=== PATIENT | male | born 1955 | race Caucasian/White ===

== ENCOUNTER 2018-12-19 14:14 | Emergency (ER) | payer OTHER ==
[2018-12-19] MEDS ORDERED: warfarin PO (14:37)
[2018-12-19] MEDS ORDERED: PERCOCET PO (14:37)
[2018-12-19] MEDS ORDERED: insulin (14:39)
[2018-12-19] MEDS ORDERED: lisinopril (14:39)
[2018-12-19] MEDS ORDERED: pregabalin (14:39)
--- NOTE | 2018-12-19 15:17 | REP ---
PORTABLE CHEST X-RAY: SINGLE VIEW. HISTORY: Chest pain. FINDINGS: Monitoring electrodes are seen. The lungs are well inflated and free of focal infiltrate. There is minimal linear fibrosis in the left base. Heart is not enlarged. Pulmonary vasculature is not increased. No acute bony abnormality is appreciated. There is an old healed fracture of the left clavicle. Slight blunting of the left lateral pleural angle consistent with fibrosis. There are clips in right upper quadrant of the abdomen. IMPRESSION: Pleuroparenchymal fibrosis on the left. No acute disease. Electronically Signed by Jerry Jasmine MD 12/19/2018 06:27 P
--- NOTE | 2018-12-19 15:23 | REP ---
CT brain: 12/19/2018. Indication: Altered mental status. Stroke. Comparison: None. Technique: Unenhanced axial CT images of the brain were obtained from skull base to vertex. Findings: There is no acute intracranial hemorrhage, acute cortical infarction, mass effect or hydrocephalous. Mild diffuse volume loss is present. Fixation hardware is noted involving the lateral and superior orbital mathew. Bilateral TMJ degenerative sequelae are present. Impression: No acute intracranial process. Electronically Signed by Oseas Person DO 12/19/2018 03:14 P
[2018-12-19 15:50] LABS: BASO # 0.1 10^3/uL (0.0-0.2); BASO % 1.6 % (0.0-1.0); EOS # 0.3 10^3/uL (0.0-0.5); EOS % 5.4 % (0.0-3.0); HEMATOCRIT 35.1 % (42.0-52.0); LYMPH # 1.6 10^3/uL (1.5-5.0); LYMPH % 30.5 % (24.0-44.0); MEAN CORPUSCULAR HEMOGLOBIN 33.6 pg (27.0-33.0); MEAN CORPUSCULAR HGB CONC 34.2 g/dl (32.0-36.5); MEAN CORPUSCULAR VOLUME 98.3 fl (80.0-96.0); MONO # 0.7 10^3/uL (0.0-0.8); MONO % 12.6 % (0.0-5.0); NEUTROPHILS # 2.6 10^3/uL (1.5-8.5); NEUTROPHILS % 49.7 % (36.0-66.0); PLATELET COUNT, AUTOMATED 132 10^3/uL (150-450); RED BLOOD COUNT 3.57 10^6/uL (4.30-6.10); WHITE BLOOD COUNT 5.1 10^3/uL (4.0-10.0)
[2018-12-19] MEDS ORDERED: LYRI150C PO (15:55)
[2018-12-19] MEDS ORDERED: INSULADS INJ (15:55)
[2018-12-19] MEDS ORDERED: lactulose PO (15:55)
[2018-12-19] MEDS ORDERED: WARF05TA PO (15:55)
[2018-12-19] MEDS ORDERED: METF10004 PO (15:55)
[2018-12-19] MEDS ORDERED: REFR0.5D8 OP (15:55)
[2018-12-19] MEDS ORDERED: CAPS0.022 TOP (15:55)
[2018-12-19] MEDS ORDERED: ROXI1TAB2 PO (15:55)
[2018-12-19] MEDS ORDERED: LISI-542 PO (15:55)
[2018-12-19 15:59] LABS: INR 1.94; PROTHROMBIN TIME 21.9 SECONDS (11.8-14.0)
[2018-12-19 16:00] LABS: PARTIAL THROMBOPLASTIN TIME 40.2 SECONDS (25.0-38.4)
[2018-12-19 16:14] LABS: OSMOLALITY SERUM 302 MOSM/KG (280-301)
[2018-12-19 16:15] LABS: BLOOD UREA NITROGEN 11 MG/DL (7-18); CALCIUM LEVEL 8.3 MG/DL (8.8-10.2); CARBON DIOXIDE LEVEL 25 MEQ/L (21-32); CHLORIDE LEVEL 112 MEQ/L (98-107); CK-MB VALUE MASS 1.3 NG/ML (<3.6); CPK CREATINE PHOSPHOKINASE 92 U/L (39-308); CREATININE FOR GFR 0.78 MG/DL (0.70-1.30); GLOMERULAR FILTRATION RATE > 60.0 (>49); GLUCOSE, FASTING 214 MG/DL (70-100); MB/CK RELATIVE INDEX 1.41 (< OR =4); POTASSIUM SERUM 3.9 MEQ/L (3.5-5.1); SODIUM LEVEL 142 MEQ/L (136-145); TROPONIN I 0.17 NG/ML (< 0.10)
[2018-12-19 16:20] LABS: ACETAMINOPHEN LEVEL < 2.0 UG/ML (10.0-30.0); ALBUMIN 2.9 GM/DL (3.2-5.2); BILIRUBIN,DIRECT 0.8 MG/DL (0.0-0.2); BILIRUBIN,TOTAL 2.3 MG/DL (0.2-1.0); ETHYL ALCOHOL (ETHANOL) 0.003 % (0.000-0.010); FREE T4 0.92 NG/DL (0.76-1.46); SALICYLATE LEVEL < 1.7 MG/DL (5.0-30.0); THYROID STIMULATING HORMONE 1.32 uIU/ML (0.358-3.740); TOTAL PROTEIN 6.7 GM/DL (6.4-8.2)
[2018-12-19] MEDS ORDERED: NS 1,000 ML IV ONE ×2 (16:45→18:30)
[2018-12-19] MEDS ORDERED: ISOVUE-370 76% 100ML VIAL (Q9967) As Ordered ONE (16:52)
[2018-12-19] MEDS ORDERED: PERCOCET 5MG/325MG TAB PO ONE (17:45)
--- NOTE | 2018-12-19 18:01 | REPVR ---
PROCEDURE INFORMATION: Exam: CT Angiography Chest With Contrast Exam date and time: 12/19/2018 4:33 PM Clinical history: 63 years old, male; Chest pain; Type not specified; Additional info: Cp TECHNIQUE: Imaging protocol: Computed tomographic angiography of the chest with intravenous contrast. 3D rendering: MIP reconstructed images were created and reviewed. Radiation optimization: All CT scans at this facility use at least one of these dose optimization techniques: automated exposure control; mA and/or kV adjustment per patient size (includes targeted exams where dose is matched to clinical indication); or iterative reconstruction. Contrast material: ISOVUE 370; Contrast volume: 75 ml; Contrast route: IV; COMPARISON: CR PORTABLE CHEST X-RAY 12/19/2018 2:51 PM FINDINGS: Pulmonary arteries: Normal. No pulmonary emboli. Aorta: Unremarkable. No aortic aneurysm. No aortic dissection. Lungs: Minimal linear atelectasis and/or scar in the lingula and left lung base. No pulmonary consolidation. Pleural space: Unremarkable. No pneumothorax. No pleural effusion. Heart: Unremarkable. No cardiomegaly. No pericardial effusion. Gallbladder and bile ducts: Status post cholecystectomy. Lymph nodes: Mildly prominent calcified and noncalcified lymph nodes within the mediastinum and both pulmonary francisca. Bones/joints: Unremarkable. No acute fracture. Soft tissues: Unremarkable. IMPRESSION: 1. No pulmonary arterial embolism. 2. Calcified and noncalcified mediastinal and hilar lymphadenopathy. Differential diagnosis includes infectious granulomatous diseases, sarcoidosis, pneumoconioses and treated lymphoma. Further clinical workup is recommended. Electronically signed by: Ari Spencer On 12/19/2018 18:00:39 PM
[2018-12-19 20:00] VITALS: BP 176/84
--- NOTE | 2018-12-20 19:33 | ECGEPIP ---
[facility] - ED Test Date: 2018-12-19 Pat Name: JAXON KANG Department: Room: - Gender: Male Cook Fry: : 1955 Requested By: Trae Fonseca Order Number: [id number] Reading MD: Trae Fonseca Measurements Intervals [place] Rate: 68 P: -4 [place]: 159 QRS: -45 QRSD: 88 T: 20 QT: 476 QTc: 510 Interpretive Statements SINUS RHYTHM LAD LEFT ANTERIOR FASCICULAR BLOCK MODERATE VOLTAGE CRITERIA FOR LVH, CONSIDER NORMAL VARIANT PROLONGED QT INTERVAL NONSPECIFIC ST T WAVE CHANGES NO PRIOR ECG FOR COMPARISON Electronically Signed on 12-20-2018 19:32:52 EDT by Trae Fonseca
== END 2018-12-19 20:07 | disposition short-term general hospital (02) ==
LOC: M ED 14:14
DX: I21.4 Non-ST elevation (NSTEMI) myocardial infarction (principal); E11.9 Type 2 diabetes mellitus without complications; I10 Essential (primary) hypertension; B19.20 Unspecified viral hepatitis C without hepatic coma; K74.60 Unspecified cirrhosis of liver; Z79.899 Other long term (current) drug therapy; Z79.4 Long term (current) use of insulin; Z79.01 Long term (current) use of anticoagulants; Z88.8 Allergy status to other drugs, medicaments and biological substances; Z87.891 Personal history of nicotine dependence
CPT/HCPCS: 70450; 71045; 71275; 80048; 80076; 82140; 82550; 82553; 83605; 83690; 83880; 83930; 84439; 84443; 84484; 85025; 85610; 85730; 87040; 93005; 93041; 94760; 96360; 96361; 99291; G0480; Q9967

== ENCOUNTER 2019-03-11 10:04 | Inpatient (IN) | payer OTHER ==
[~2019-03-11] VITALS: Ht 175.3 cm; Wt 67.5 kg
[~2019-03-11 10:04] MED LIST: CAPS0.022 TOP; INSULADS SC; LISI-542 PO; LYRI150C PO; METF10004 PO; PERCOCET PO; REFR0.5D8 OU; ROXI1TAB2 PO; WARF05TA PO; insulin; lactulose PO; lisinopril; pregabalin; warfarin PO
[2019-03-11 10:39] LABS: BASO # 0.1 10^3/uL (0.0-0.2); BASO % 0.4 % (0.0-1.0); EOS % 0.1 % (0.0-3.0); HEMATOCRIT 32.1 % (42.0-52.0); HEMOGLOBIN 10.8 g/dl (13.5-17.5); LYMPH # 0.4 10^3/uL (1.5-5.0); LYMPH % 3.7 % (24.0-44.0); MEAN CORPUSCULAR HEMOGLOBIN 32.9 pg (27.0-33.0); MEAN CORPUSCULAR HGB CONC 33.6 g/dl (32.0-36.5); MEAN CORPUSCULAR VOLUME 97.9 fl (80.0-96.0); MONO # 0.8 10^3/uL (0.0-0.8); MONO % 7.4 % (0.0-5.0); NEUTROPHILS # 9.8 10^3/uL (1.5-8.5); NEUTROPHILS % 87.6 % (36.0-66.0); PLATELET COUNT, AUTOMATED 137 10^3/uL (150-450); RED BLOOD COUNT 3.28 10^6/uL (4.30-6.10); WHITE BLOOD COUNT 11.2 10^3/uL (4.0-10.0)
[2019-03-11 11:14] LABS: ALBUMIN 2.4 GM/DL (3.2-5.2); ALT/SGPT 12 U/L (12-78); BILIRUBIN,DIRECT 0.9 MG/DL (0.0-0.2); BILIRUBIN,TOTAL 1.7 MG/DL (0.2-1.0); BLOOD UREA NITROGEN 17 MG/DL (7-18); CALCIUM LEVEL 8.1 MG/DL (8.8-10.2); CARBON DIOXIDE LEVEL 19 MEQ/L (21-32); CHLORIDE LEVEL 98 MEQ/L (98-107); CK-MB VALUE MASS < 1.0 NG/ML (<3.6); CPK CREATINE PHOSPHOKINASE 42 U/L (39-308); CREATININE FOR GFR 1.18 MG/DL (0.70-1.30); GLOMERULAR FILTRATION RATE > 60.0 (>49); GLUCOSE, FASTING 448 MG/DL (70-100); MB/CK RELATIVE INDEX 2.38 (< OR =4); POTASSIUM SERUM 4.8 MEQ/L (3.5-5.1); SODIUM LEVEL 130 MEQ/L (136-145); THYROID STIMULATING HORMONE 0.623 uIU/ML (0.358-3.740); TOTAL PROTEIN 6.2 GM/DL (6.4-8.2); TROPONIN I 0.06 NG/ML (< 0.10)
[2019-03-11] MEDS ORDERED: ISOVUE-370 76% 100ML VIAL (Q9967) As Ordered ONE (11:42)
[2019-03-11] MEDS ORDERED: NS 2,250 ML in IV 1 EA IV ONE (11:45)
[2019-03-11] MEDS ORDERED: cefTRIAXone SOD 2 GM in D5W MINI-BAG PLUS 50 ML IV ONE (11:45)
[2019-03-11 12:08] LABS: INFLUENZA A AMPLIFICATION NEGATIVE (NEGATIVE); INFLUENZA B AMPLIFICATION NEGATIVE (NEGATIVE)
--- NOTE | 2019-03-11 12:27 | REP ---
CT chest with IV contrast: History: Trauma. Comparison chest CT December 19, 2018. CT contrast dose: 100 mL of intravenous Isovue 370. CT findings: Preliminary digital elementary special education teacher radiograph is unremarkable. There is no evidence of mediastinal hematoma. The thoracic aorta is normal in coarse, caliber and homogeneous in contrast enhancement. No filling defect is seen in the pulmonary arterial tree. There are multiple calcified lymph node residuals in the hilar and mediastinal lymph nodes. There are stable calcified and noncalcified mediastinal lymph nodes unchanged from December 19, 2018. There is linear pleuroparenchymal fibrosis in the left lower lobe unchanged from December 19, 2018. There is fissural thickening along the major fissure on the left and to a lesser extent in the right chest. This combined with prominent interstitial markings and interlobular septal thickening in the lower lobes bilaterally and posteriorly is suggestive of CHF. Mild pulmonary edema pattern. No focal infiltrate is seen. There is no evidence of pneumothorax or focal contusion. Bone window settings show no bony destructive lesion. No acute fracture is seen. There is evidence of an old healed fracture of the left distal clavicle. Impression: Fissural thickening and mild diffuse interstitial edema pattern, question CHF. Old granulomatous lymph node residuals unchanged. Pleuroparenchymal scarring left base. Old healed fracture left distal clavicle. Electronically Signed by Jerry Jasmine MD 03/11/2019 01:10 P
--- NOTE | 2019-03-11 12:34 | REP ---
CT ABDOMEN AND PELVIS WITH IV BUT WITHOUT ORAL CONTRAST: HISTORY: Trauma. FINDINGS: Preliminary etcher enameling view is unremarkable. The liver and spleen are normal in size homogeneous in texture. No hematoma is seen in either organ. Clips in the gallbladder fossa post cholecystectomy. Normal adrenals. No pancreatic mass or abnormal fluid collection is seen. Kidneys enhance symmetrically and appear morphologically intact. No perirenal hematoma is seen. The patient's hands apparently could not be removed from the field of view. Prostate seminal vesicles and urinary bladder appear intact. The bladder is largely empty. Small and large bowel loops are unremarkable. No intra-abdominal hematoma is seen. Bone window settings show no fracture or bony destructive lesion. There are two or three normal-sized periaortic lymph nodes. No definite adenopathy. There are large venous collaterals in the left mid abdomen consistent with portal hypertension. There is a tiny sliver of ascitic fluid just anterior to the left lobe of the liver. There is no evidence of significant ascites. IMPRESSION: There are large mesenteric and retroperitoneal portal venous collateral channels in the left abdomen consistent with portal hypertension/cirrhosis. No traumatic abnormality is seen. Post cholecystectomy clips. Electronically Signed by Jerry Jasmine MD 03/11/2019 01:10 P
--- NOTE | 2019-03-11 13:02 | REP ---
CT brain without contrast: History: Trauma. Comparison study: December 19, 2018. Findings: Digital preliminary retail pricing coordinator radiographs are unremarkable. The bony calvarium is intact. There are post surgical metallic screws along the lateral orbital margin on the left unchanged. Visualized paranasal sinuses are clear. No intraorbital abnormality is seen. There is mild generalized volume loss intracranially. There is no evidence of intracranial hemorrhage. No extra-axial fluid collection is seen. No mass or flow midline shift is seen. No evidence of infarct. Impression: No skull fracture or intracranial injury. Mild generalized volume loss. Postsurgical changes left lateral orbit wall unchanged. Electronically Signed by Jerry Jasmine MD 03/11/2019 01:11 P
--- NOTE | 2019-03-11 13:03 | REP ---
CT study of the cervical spine without contrast: History: Trauma. No comparison study. Technique: Helical scanning is acquired and overlapping 2 mm high resolution axial images were generated and reviewed at bone and soft tissue window settings. Coronal and sagittal multiplanar re-formations images are generated. CT findings: There is no evidence of cervical spine element fracture. No skull base fracture is seen. Cervical vertebral body heights are preserved. Alignment is normal. Facet joints are normally aligned bilaterally at each cervical level on multiplanar re-formations images. There is no evidence of intraspinal or paraspinal hematoma. No extra vertebral abnormality is seen. There are mild degenerative spondylosis changes. Degenerative disc changes are most pronounced at C5-6 but also present at C6-7 and C3-4 and C4-5. There is osteoarthritis at the articulation between the dens and the anterior arch of C1. Minimal facet changes are noted. Impression: Degenerative spondylosis changes. Otherwise negative CT study of the cervical spine without contrast. No fracture seen. Electronically Signed by Jerry Jasmine MD 03/11/2019 01:11 P
--- NOTE | 2019-03-11 13:11 | REP ---
Left knee series: Four views. History: Trauma. Findings: Four views of the left knee are presented. No sunrise view. There is minimal patellar spurring on the lateral film at the superior pole of the patella. A fabella is noted. No fracture or subluxation or joint effusion is seen. Impression: No fracture noted. Four view left knee series. Electronically Signed by Jerry Jasmine MD 03/11/2019 06:19 P
[2019-03-11] MEDS: ACETAMINOPHEN TAB 650MG DOSE (2X325MG) PO ONE ×3 (13:42→14:24)
[2019-03-11] MEDS ORDERED: WARF4TAB51 PO ×2 (15:11)
[2019-03-11] MEDS ORDERED: LISI-538 PO (15:11)
--- NOTE | 2019-03-11 15:45 | HPEPDOC ---
General Date of Admission Mar 11, 2019 at 14:49 Date of Service: Mar 11, 2019 Attending Physician: MCKENNA SIMMS MD Chief Complaint 63 year old male PMHx chronic lower back pain/sciatica, HTN, neuropathy, DM2 presents with altered mental status, frequent falls and urinary incontinence/dysuria. at bedside assisting with the history. States patient woke up yesterday feeling weak and fatigued, appeared confused, not able to get out of bed or ambulate. Noted to have episodes of urinary incontinence with dysuria, associated with chills and subjective fever. Also with c/o frequent falls with a fall yesterday, hit his forehead. Patient stating he loses his balance and falls, denies lightheadedness/dizziness, chest pain/pressure. Presents to the ED due to continuation of symptoms. VSS, T 102. Labs ith WBC 11.2, BG 448 (AG 13), LA 4, UA trace LE, negative nitrite, negative bacteria. CT chest with question of mild pulmonary edema. Started on IV rocephin in ED, admission for further management. Source: Patient, Family Exam Limitations: No limitations Home Medications Scheduled Insulin Glargine (Lantus) 100 Unit/1 Ml Vial, 12 UNIT SC QHS, (Reported) Lisinopril (Lisinopril) 20 Mg Tablet, 10 MG PO DAILY, (Reported) Metformin HCl (Metformin HCl) 1,000 Mg Tablet, 1,000 MG PO BID, (Reported) Pregabalin (Lyrica) 150 Mg Capsule, 150 MG PO BID, (Reported) Warfarin Sodium (Warfarin Sodium) 2 Mg Tablet, 4 MG PO 6XWK, (Reported) TAKEN SUN Sun Warfarin Sodium (Warfarin Sodium) 2 Mg Tablet, 3 MG PO 1XWK, (Reported) TAKEN SUNDAY Scheduled PRN Capsaicin (Capsaicin) 0.025% Cream..g., 1 DOSE TOP BID PRN for PAIN, (Reported) APPLY TO AREAS OF PAIN Carboxymethylcellulose Sodium (Refresh Tears) 15 Ml Drops, 1 DROP OU TID PRN for DRY EYES, (Reported) Oxycodone HCl (Roxicodone) 5 Mg Tablet, 1 TAB PO Q4H PRN for PAIN, (Reported) Allergies Coded Allergies: gabapentin (Verified Adverse Reaction, Unknown, nausea vomiting, 12/19/18) spironolactone (Verified Adverse Reaction, Unknown, gynecomastia, 12/19/18) Past Medical History Medical History DM2, HTN, neuropathy, CAD s/p CO, chronic lower back pain Surgical History none Family History Significant Family History: Noncontributory Social History * Smoker: former Smoker, less than 1 pack/day Alcohol: Denies Drugs: denies A-FIB/CHADSVASC A-FIB History Current/History of A-Fib/PAF?: No Current PO Anticoag Therapy: Yes Review of Systems Constitutional: Reports: Weakness, Fatigue Genitourinary: Reports: Dysuria, Frequency, Incontinence Vital Signs Vital Signs Date Time Temp Pulse Resp B/P (MAP) Pulse Ox O2 Delivery O2 Flow Rate FiO2 03/11/19 13:15 78 18 120/62 (81) 91 03/11/19 10:19 102.0 03/11/19 10:19 Room Air Laboratory Data Labs 24H Laboratory Tests 2 03/11/19 10:25: Immature Granulocyte % (Auto) 0.8, Neutrophils (%) (Auto) 87.6H, Lymphocytes (%) (Auto) 3.7L, Monocytes (%) (Auto) 7.4H, Eosinophils (%) (Auto) 0.1, Basophils (%) (Auto) 0.4, Neutrophils # (Auto) 9.8H, Lymphocytes # (Auto) 0.4L, Monocytes # (Auto) 0.8, Eosinophils # (Auto) 0.0, Basophils # (Auto) 0.1, Nucleated Red Blood Cells % (auto) 0.0, Urine Color YELLOW, Urine Appearance CLEAR, Urine pH 5.0, Urine Specific [place] 1.029, Urine Protein NEGATIVE, Urine Glucose (UA) 3+H, Urine Ketones 1+H, Urine Blood 2+H, Urine Nitrite NEGATIVE, Urine Bilirubin NEGATIVE, Urine Urobilinogen 0.2, Urine Leukocyte Esterase TRACEH, Urine WBC (Auto) 31H, Urine RBC (Auto) 4H, Urine Hyaline Casts (Auto) 0, Urine Bacteria (Auto) NEGATIVE, Urine Squamous Epithelial Cells 0, Urine Sperm (Auto) , Anion Gap 13, Glomerular Filtration Rate > 60.0, Calcium Level 8.1L, Total Bilirubin 1.7H, Direct Bilirubin 0.9H, Aspartate Amino Transf (AST/SGOT) 22, Alanine Aminotransferase (ALT/SGPT) 12, Alkaline Phosphatase 78, Total Creatine Kinase 42, Creatine Kinase MB < 1.0, Creatine Kinase MB Relative Index 2.38, Troponin I 0.06, Total Protein 6.2L, Albumin 2.4L, Albumin/Globulin Ratio 0.63L, Thyroid Stimulating Hormone (TSH) 0.623 03/11/19 10:27: Bedside Glucose (Misc Panel) 445H 03/11/19 10:50: Lactic Acid Level 4.0*H, Influenza Type A (RT-PCR) NEGATIVE, Influenza Type B (RT-PCR) NEGATIVE, Respiratory Syncytial Virus (RT-PCR NEGATIVE 03/11/19 12:50: Ammonia 32 03/11/19 15:19: CBC/BMP Laboratory Tests 03/11/19 10:25 Microbiology Microbiology 03/11/19 Blood Culture, Received Pending 03/11/19 Urine Culture, Received Pending 03/11/19 Blood Culture, Received Pending Assessment/Plan 1. altered mental status - presents with c/o dysuria and increased urinary frequency/incontinence. - CT chest question of mild pulmonary edema, no clear infiltrates, will check ECHO. - T 102 in ED. - started on IV rocephin in ED, continue same pending cultures. - check blood/urine cultures. 2. uncontrolled hyperglycemia - FSBS, SSI coverage. 3. leukocytosis with left shift - tx as per #1. 4. HTN - continue lisinopril. 5. peripheral neuropathy - continue lyrica. 6. hx TIA - on coumadin for stroke prophylaxis. - INR 2.8, continue same, INR check daily. 7. liver cirrhosis/portal hypertension - on lactulose for HE prophylaxis. 8. DVT ppx - continue coumadin. Plan / VTE VTE Prophylaxis Ordered?: Yes MCKENNA SIMMS MD Mar 11, 2019 15:45
[2019-03-11] MEDS ORDERED: DEXTROSE 50% 50 ML SYRINGE IV PRN (16:00)
[2019-03-11] MEDS ORDERED: GLUCAGON FOR INJ 1 MG VIAL (J1610) SC PRN (16:00)
[2019-03-11] MEDS ORDERED: GLUCOSE 4 GM CHEW TABLET PO PRN (16:00)
[2019-03-11 16:20] VITALS: BP 131/59
[2019-03-11 16:30] LABS: INR 2.68; PROTHROMBIN TIME 28.4 SECONDS (11.8-14.0)
[2019-03-11] MEDS ORDERED: WARFARIN SOD 4 MG TAB PO ONE (17:00)
[2019-03-11] MEDS: HumaLOG INSULIN (NovoLOG) PER UNIT SC SCH (18:02)
[2019-03-11] MEDS: PREGABALIN 75 MG CAP(LYRICA) PO SCH (20:09)
[2019-03-11 22:00] VITALS: BP 131/64
[2019-03-11] MEDS: ACETAMINOPHEN TAB 650MG DOSE (2X325MG) PO PRN (23:39)
[2019-03-11 23:40] VITALS: BP 188/78
[2019-03-11] MEDS ORDERED: HumaLOG INSULIN (NovoLOG) PER UNIT SC STA (23:45)
[2019-03-11] MEDS ORDERED: amLODIPine 5 MG TAB PO ONE (23:45)
[2019-03-11 23:51] VITALS: BP 180/54
[2019-03-12] VITALS (7 sets, daily range): BP systolic 116–170; BP diastolic 57–90
[2019-03-12] MEDS ORDERED: NS 1,000 ML IV SCH
[2019-03-12 00:13] LABS: ABG BASE EXCESS -7.8 (-2.0-2.0); ABG HCO3 14.2 MEQ/L (22.0-26.0); ABG O2 SATURATION 99.3 % (95.0-99.0); ABG PARTIAL PRESSURE CO2 20.8 mmHg (35.0-45.0); ABG PARTIAL PRESSURE O2 171.4 mmHg (75.0-100.0); ABG STANDARD HCO3 18.2 MEQ/L (22.0-26.0); ABG TOTAL CO2 14.9 MEQ/L (23.0-31.0); ABG pH (ARTERIAL) 7.453 UNITS (7.350-7.450)
[2019-03-12] MEDS: HumaLOG INSULIN (NovoLOG) PER UNIT SC SCH ×5 (00:23→21:00)
[2019-03-12 00:30] LABS: HEMATOCRIT 33.1 % (42.0-52.0); MEAN CORPUSCULAR HEMOGLOBIN 32.7 pg (27.0-33.0); MEAN CORPUSCULAR HGB CONC 33.2 g/dl (32.0-36.5); MEAN CORPUSCULAR VOLUME 98.5 fl (80.0-96.0); PLATELET COUNT, AUTOMATED 140 10^3/uL (150-450); RED BLOOD COUNT 3.36 10^6/uL (4.30-6.10); WHITE BLOOD COUNT 9.2 10^3/uL (4.0-10.0)
[2019-03-12] MEDS: PIPERACILLIN/TAZOBACTAM SOD 4.5 GM in D5W MINI-BAG PLUS 50 ML IV SCH ×3 (00:38→16:37)
--- NOTE | 2019-03-12 00:38 | REPVR ---
PROCEDURE INFORMATION: Exam: XR Chest, 1 View Exam date and time: 03/11/2019 11:59 PM Age: 63 years old Clinical indication: Other: Decreased sat TECHNIQUE: Imaging protocol: XR of the chest Views: 1 view. COMPARISON: CR PORTABLE CHEST X-RAY 12/19/2018 2:51 PM FINDINGS: Lungs: Bilateral perihilar and infrahilar infiltrates with increased interstitial coarsening. There are Angie B lines in the right base which are new. Mild pulmonary hyperinflation. Pleural space: Question of minimal left pleural effusion. Heart/Mediastinum: Borderline cardiomegaly which may be slightly increased. Bones/joints: Left clavicular fracture. IMPRESSION: Interval mild congestive failure overlying COPD since 12/19/2018. Electronically signed by: Randy Mina On 03/12/2019 00:38:06 AM
[2019-03-12] MEDS ORDERED: NS 1,000 ML IV ONE ×2 (00:45)
--- NOTE | 2019-03-12 00:47 | IPNPDOC ---
Text Note Date of Service The patient was seen on 03/12/19. NOTE Overnight Progress Note Rapid Response team was called to pt's bedside due to change in mental status. Pt was found to be confused compared to prior evaluation by nursing staff. Pt was alert but was not responding to questions appropriately. Pt did respond "yes" when asked if he was currently having any chest pain. VS: Temp 104.3, HR 67, RR 32, BP 188/78, O2 sat 89% on room air Pt did not follow directions and would not cooperate with neurologic exam Pt is alert and oriented x1 to self, not to place or time. Of note, patient was admitted for treatment of UTI, on IV ceftriaxone. Labs ordered including ABG, lactic acid, CBC, BMP, repeat blood culture x2, troponin, and etoh level. FSBS noted to be 456. CXR ordered. EKG ordered. Pt will be started on Zosyn to broaden antibiotic coverage for concern of worsening sepsis. Pt started on 1 L fluid bolus and will continue with maintenance fluids at 100ml/hr. Pt was treated with Tylenol and cooling blanket for fever, amlodipine 5mg for hypertension, 12 units humalog for elevated blood glucose. If fever continues, may add ibuprofen for further management. Monitor on telemetry and with q4h VS and neuro checks. Pt was transferred to PCU for closer monitoring. VS,Fishbone, I+O VS, Fishbone, I+O Laboratory Tests 03/11/19 10:25 03/12/19 00:20 Vital Signs Date Time Temp Pulse Resp B/P (MAP) Pulse Ox O2 Delivery O2 Flow Rate FiO2 03/12/19 00:24 96 178/84 03/11/19 23:40 104.3 32 89 03/11/19 22:00 Room Air I&O- Last 24 Hours up to 6 AM 03/12/19 06:00 Intake Total 3090 ml Output Total 175 ml Balance 2915 ml PRATEEK ARELLANO D.O. Mar 12, 2019 00:47
[2019-03-12 00:53] LABS: ETHYL ALCOHOL (ETHANOL) < 0.003 % (0.000-0.010)
[2019-03-12 01:03] LABS: CALCIUM LEVEL 7.8 MG/DL (8.8-10.2); CREATININE FOR GFR 1.36 MG/DL (0.70-1.30); GLOMERULAR FILTRATION RATE 56.7 (>49); POTASSIUM SERUM 4.5 MEQ/L (3.5-5.1); TROPONIN I 0.06 NG/ML (< 0.10)
[2019-03-12] MEDS ORDERED: ALBUTEROL SULFATE 2.5 MG/0.5 ML INH NEB SOLN NEB ONE (02:45)
[2019-03-12] MEDS ORDERED: FUROSEMIDE 20 MG/2 ML VIAL (J1940) IV ONE (02:45)
[2019-03-12 02:56] LABS: NT-PRO BNP 1861 PG/ML (<125)
[2019-03-12] MEDS ORDERED: IBUPROFEN 400 MG TAB PO ONE (04:00)
[2019-03-12 05:28] LABS: HEMATOCRIT 30.2 % (42.0-52.0); HEMOGLOBIN 10.1 g/dl (13.5-17.5); MEAN CORPUSCULAR HEMOGLOBIN 32.4 pg (27.0-33.0); MEAN CORPUSCULAR HGB CONC 33.4 g/dl (32.0-36.5); MEAN CORPUSCULAR VOLUME 96.8 fl (80.0-96.0); PLATELET COUNT, AUTOMATED 122 10^3/uL (150-450); RED BLOOD COUNT 3.12 10^6/uL (4.30-6.10); WHITE BLOOD COUNT 12.5 10^3/uL (4.0-10.0)
[2019-03-12 05:39] LABS: INR 3.74
[2019-03-12 05:55] LABS: BLOOD UREA NITROGEN 16 MG/DL (7-18); CALCIUM LEVEL 7.6 MG/DL (8.8-10.2); CARBON DIOXIDE LEVEL 15 MEQ/L (21-32); CHLORIDE LEVEL 107 MEQ/L (98-107); CREATININE FOR GFR 1.06 MG/DL (0.70-1.30); GLOMERULAR FILTRATION RATE > 60.0 (>49); GLUCOSE, FASTING 234 MG/DL (70-100); SODIUM LEVEL 136 MEQ/L (136-145)
--- NOTE | 2019-03-12 07:57 | ECGEPIP ---
[facility] - ED Test Date: 2019-03-11 Pat Name: JAXON KANG Department: Room: - Gender: Male Social Service Technician: ehsan : 1955 Requested By: JOSETTE Tinajero Order Number: [id number] Reading MD: Sveta Ramos Measurements Intervals [place] Rate: 92 P: 50 MS: 171 QRS: -51 QRSD: 77 T: 48 QT: 378 QTc: 468 Interpretive Statements SINUS RHYTHM LEFT ANTERIOR FASCICULAR BLOCK LAD PROLONGED QTC NSTTW abnormalities INCREASED RATE 12/19/18 Electronically Signed on 03-12-2019 7:56:56 EST by Sveta Ramos
[2019-03-12] MEDS: lisinopriL 10 MG TAB PO SCH (08:43)
[2019-03-12] MEDS: PREGABALIN 75 MG CAP(LYRICA) PO SCH ×2 (08:44→21:58)
[2019-03-12] MEDS ORDERED: oxyCODONE 5MG TAB PO ONE (08:45)
[2019-03-12] MEDS ORDERED: VANCOMYCIN HCL IV SCH (10:15)
[2019-03-12] MEDS ORDERED: FLUID PLACE HOLDER IV SCH (10:15)
[2019-03-12] MEDS ORDERED: cefTRIAXone SOD 1 GM in D5W MINI-BAG PLUS 50 ML IV SCH (12:00)
[2019-03-12] MEDS ORDERED: VANCOMYCIN HCL 1,000 MG, VIAL MATE ADAPTER 1 EACH in D5W 250 ML IV ONE (12:00)
--- NOTE | 2019-03-12 12:31 | IPNPDOC ---
Subjective Date Seen The patient was seen on 03/12/19. Subjective Chief Complaint/HPI seen and examined at bedside, awake and alert but slow to answer. No specific complaints. General: Reports: Fatigue Constitutional: Reports: Weakness Objective Physical Examination General Exam: Positive: Alert, Other (slow to answer but appropriate) Chest Exam: Positive: Diminished Assessment /Plan Assessment 1. gram positive bacteremia - overnight events noted. - positive blood cultures from 03/11 2/2 bottles positive for staph. - started on vancomycin q12. - consult placed to ID Dr. Faust. - f/u ECHO. 2. hypoxia (resolved) - continue supplemental oxygen - tx with IV lasix 20mg IV x 1 overnight. - f/u ECHO report. - daily weights, ins/outs, continue 20mg IV lasix daily. - consider consult to cardiology. 3. uncontrolled hyperglycemia - improving. - FSBS, SSI coverage. 4. HTN - continue lisinopril. 5. peripheral neuropathy - continue lyrica. 6. hx TIA - on coumadin for stroke prophylaxis. - INR 3.74 today, hold coumadin, INR check daily. 7. liver cirrhosis/portal hypertension - ammonia level normal, monitor. 8. DVT ppx - continue coumadin. Plan/VTE VTE Prophylaxis Ordered?: Yes VS, I&O, 24H, [facility] Vital Signs/I&O Vital Signs Date Time Temp Pulse Resp B/P (MAP) Pulse Ox O2 Delivery O2 Flow Rate FiO2 03/12/19 11:44 98.0 77 18 141/60 (87) 90 Room Air 03/12/19 08:00 3.0 l I&O- Last 24 Hours up to 6 AM 03/12/19 06:00 Intake Total 3090 ml Output Total 475 ml Balance 2615 ml Laboratory Data 24H LABS Laboratory Tests 2 03/11/19 12:50: Ammonia 32 03/11/19 15:19: Lactic Acid Followup at 4 Hours 3.1*H 03/11/19 17:47: Bedside Glucose (Misc Panel) 453H 03/11/19 23:46: Bedside Glucose (Misc Panel) 456H 03/12/19 00:04: Blood Gas Bicarbonate Standard 18.2L, Arterial Blood pH 7.453H, Arterial Blood Partial Pressure CO2 20.8L, Arterial Blood Partial Pressure O2 171.4H, Arterial Blood Total CO2 14.9L, Arterial Blood HCO3 14.2L, Arterial Blood Base Excess - 7.8L, Arterial Blood Oxygen Saturation 99.3H 03/12/19 00:20: Nucleated Red Blood Cells % (auto) 0.0, Anion Gap 14, Glomerular Filtration Rate 56.7, Calcium Level 7.8L, Troponin I 0.06, NI-Syc-P-Type Natriuretic Peptide 1861H, Ethyl Alcohol Level < 0.003 03/12/19 00:21: Lactic Acid Level 7.2*H 03/12/19 02:22: Bedside Glucose (Misc Panel) 249H 03/12/19 05:04: Nucleated Red Blood Cells % (auto) 0.0, Prothrombin Time 37.0H, Prothromb Time International Ratio 3.74, Anion Gap 14, Glomerular Filtration Rate > 60.0, Lactic Acid Level 6.2*H, Calcium Level 7.6L 03/12/19 06:07: Bedside Glucose (Misc Panel) 238H 03/12/19 08:21: Lactic Acid Level 3.5*H, Ammonia 29 03/12/19 12:16: Bedside Glucose (Misc Panel) 440H CBC/BMP Laboratory Tests 03/12/19 00:20 03/12/19 05:04 Microbiology Microbiology 03/12/19 Blood Culture, Received Pending 03/11/19 Blood Culture - Preliminary, Resulted 03/11/19 Urine Culture - Final, Complete 03/11/19 Blood Culture - Preliminary, Resulted MCKENNA SIMMS MD Mar 12, 2019 12:31
[2019-03-12] MEDS ORDERED: VANCOMYCIN HCL 750 MG, VIAL MATE ADAPTER 1 EACH in D5W 250 ML IV ONE (13:00)
[2019-03-12] MEDS: LACTULOSE 20 GM/30 ML SYRUP UD PO SCH ×2 (16:37→21:56)
[2019-03-12] MEDS ORDERED: HumuLIN (NovoLIN)70/30 INSULIN INJ PER UNIT SC SCH (17:30)
[2019-03-12] MEDS ORDERED: LEVEMIR (INSULIN DETEMIR) 1 UNITS/0.01ML SC SCH (21:00)
[2019-03-12] MEDS: LEVEMIR (INSULIN DETEMIR) 1 UNITS/0.01ML SC SCH (21:57)
[2019-03-12] MEDS: VANCOMYCIN HCL 750 MG, VIAL MATE ADAPTER 1 EACH in D5W 250 ML IV SCH (21:58)
[2019-03-12] MEDS ORDERED: HumaLOG INSULIN (NovoLOG) PER UNIT SC ONE (22:00)
--- NOTE | 2019-03-12 22:43 | ECHO ---
DATE OF PROCEDURE: 03/12/2019 REFERRING PHYSICIAN: Tristen Em MD INDICATION: Fever. HEIGHT: 175 cm WEIGHT: 75 kg 2D MEASUREMENTS: Aortic root: 3.0 cm Left atrium: 4.1 cm Ventricular septum: 0.93 cm Posterior wall: 1.08 cm Left ventricle diastole: 3.8 cm Left atrial volume index: 32 Inferior vena cava: 2.3 cm DOPPLER MEASUREMENTS: No aortic regurgitation. Moderate mitral regurgitation. Mild tricuspid regurgitation. No pulmonic regurgitation. Aortic valve velocity: 175 cm/s LVOT velocity: 141 cm/s Mitral E velocity: 109 cm/s Mitral A velocity; 62.7 cm/s Mitral deceleration time: 204 ms Estimated right ventricle systolic pressure 38-43 mmHg assuming a right atrial pressure of 5-10 mmHg. MITRAL ANNULAR TISSUE DOPPLER: E prime septal: 8.2 cm/s E prime lateral: 8.4 cm/s DESCRIPTION: Rhythm was sinus. Image quality was good. No pericardial effusion. This is a 2D, M-mode, color flow Doppler and pulse wave Doppler examination that included mitral annular tissue Doppler. CONCLUSIONS: 1. Normal left ventricle internal dimensions and wall thickness. Hyperdynamic left ventricle (LV) systolic function. No regional wall motion abnormalities of left ventricle. Left ventricular ejection fraction (LVEF) 70% by visual estimate. Normal LV diastolic function. 2. No vegetations identified. 3. Mild aortic valve sclerosis of a three-cuspid aortic valve. No aortic regurgitation. 4. Mild mitral annular calcification. Moderate mitral regurgitation. 5. Suggestive of mild-moderate elevation of estimated right ventricle systolic pressure. 6. Mild left atrial dilatation by left atrial volume index.
--- NOTE | 2019-03-12 23:15 | ECGEPIP ---
[facility] Test Date: 2019-03-11 Pat Name: JAXON KANG Department: Room: Y8521-79 Gender: Male Tire Buffer: : 1955 Requested By: PRATEEK ARELLANO D.O. Order Number: [id number] Reading MD: Dex Inman Measurements Intervals [place] Rate: 94 P: [place]: 0 QRS: -52 QRSD: 67 T: -5 QT: 360 QTc: 451 Interpretive Statements Sinus rhythm, Baseline wander, Marked left axis deviation, Possible LEFT ANTERIOR FASCICULAR BLOCK NONSPECIFIC ST & T-WAVE ABNORMALITY No significant change compared with 03/11/2019 at 10:39 AM Electronically Signed on 03-12-2019 23:14:49 EST by Dex Inman
[2019-03-12] MEDS: VANCOMYCIN HCL 500 MG in D5W MINI-BAG PLUS 100 ML IV SCH (23:20)
[2019-03-13] MEDS: PIPERACILLIN/TAZOBACTAM SOD 4.5 GM in D5W MINI-BAG PLUS 50 ML IV SCH ×2 (00:31→08:39)
[2019-03-13 04:00] VITALS: BP_SYST 12; BP_SYST 120; BP_DIAS 56
[2019-03-13 05:52] LABS: HEMATOCRIT 30.9 % (42.0-52.0); HEMOGLOBIN 10.9 g/dl (13.5-17.5); MEAN CORPUSCULAR HEMOGLOBIN 32.8 pg (27.0-33.0); MEAN CORPUSCULAR HGB CONC 35.3 g/dl (32.0-36.5); MEAN CORPUSCULAR VOLUME 93.1 fl (80.0-96.0); PLATELET COUNT, AUTOMATED 137 10^3/uL (150-450); RED BLOOD COUNT 3.32 10^6/uL (4.30-6.10)
[2019-03-13 06:00] LABS: INR 4.55; PROTHROMBIN TIME 43.3 SECONDS (11.8-14.0)
[2019-03-13 06:07] LABS: BLOOD UREA NITROGEN 19 MG/DL (7-18); CALCIUM LEVEL 7.2 MG/DL (8.8-10.2); CARBON DIOXIDE LEVEL 20 MEQ/L (21-32); CHLORIDE LEVEL 105 MEQ/L (98-107); CREATININE FOR GFR 1.04 MG/DL (0.70-1.30); GLOMERULAR FILTRATION RATE > 60.0 (>49); GLUCOSE, FASTING 323 MG/DL (70-100); POTASSIUM SERUM 3.9 MEQ/L (3.5-5.1); SODIUM LEVEL 133 MEQ/L (136-145)
[2019-03-13] MEDS ORDERED: HumuLIN (NovoLIN)70/30 INSULIN INJ PER UNIT SC SCH (07:30)
[2019-03-13] MEDS: HumuLIN (NovoLIN)70/30 INSULIN INJ PER UNIT SC SCH ×3 (07:30→17:20)
[2019-03-13 07:48] VITALS: BP 122/64
[2019-03-13] MEDS: lisinopriL 10 MG TAB PO SCH (08:37)
[2019-03-13] MEDS: ACETAMINOPHEN TAB 650MG DOSE (2X325MG) PO PRN (08:37)
[2019-03-13] MEDS: LACTULOSE 20 GM/30 ML SYRUP UD PO SCH ×2 (08:37→22:06)
[2019-03-13] MEDS: PREGABALIN 75 MG CAP(LYRICA) PO SCH ×2 (08:37→22:06)
[2019-03-13] MEDS: HumaLOG INSULIN (NovoLOG) PER UNIT SC SCH ×4 (08:38→21:00)
[2019-03-13] MEDS: oxyCODONE 5MG TAB PO PRN ×2 (08:46→17:12)
--- NOTE | 2019-03-13 09:47 | IPNPDOC ---
Subjective Date Seen The patient was seen on 03/13/19. Subjective Chief Complaint/HPI Seen and examined at bedside, awake and appears comfortable. No specific complaints. Objective Physical Examination General Exam: Positive: Alert, Other (slow to answer but appropriate) Chest Exam: Positive: Diminished Assessment /Plan Assessment 1. Staph aureus bacteremia - on IV vancomycin q12. - ID follow up Dr. Faust. - sensitivities pending. - ECHO negative for vegetations, normal EF. 2. hypoxia (resolved) - continue supplemental oxygen as needed. - ECHO with normal EF. 3. uncontrolled hyperglycemia - started on levemir, 70/30. - monitor FSBS, adjust insulin dose accordingly. 4. HTN - continue lisinopril. 5. peripheral neuropathy - continue lyrica. 6. hx TIA - was on coumadin for stroke prophylaxis. - hold coumadin as supratherapeutic INR. - daily INR checks. 7. liver cirrhosis/portal hypertension - ammonia level normal, monitor. - on lactulose BID as outpatient for prevention, continue. 8. DVT ppx - SCD's. Plan/VTE VTE Prophylaxis Ordered?: Yes VS, I&O, 24H, [facility] Vital Signs/I&O Vital Signs Date Time Temp Pulse Resp B/P (MAP) Pulse Ox O2 Delivery O2 Flow Rate FiO2 03/13/19 08:46 20 03/13/19 08:37 128/70 03/13/19 07:48 100.1 91 90 Room Air 03/12/19 08:00 3.0 I&O- Last 24 Hours up to 6 AM 03/13/19 06:00 Intake Total 4120 ml Output Total 800 ml Balance 3320 ml Laboratory Data 24H LABS Laboratory Tests 2 03/12/19 12:16: Bedside Glucose (Misc Panel) 440H 03/12/19 12:55: Lactic Acid Followup at 4 Hours 4.4*H 03/12/19 17:43: Bedside Glucose (Misc Panel) 505*H 03/12/19 18:04: Bedside Glucose Confirm (Misc) 523*H 03/12/19 20:21: Bedside Glucose (Misc Panel) 552*H 03/12/19 20:43: Bedside Glucose Confirm (Misc) 501*H 03/13/19 05:12: Nucleated Red Blood Cells % (auto) 0.0, Prothrombin Time 43.3H, Prothromb Time International Ratio 4.55, Anion Gap 8, Glomerular Filtration Rate > 60.0, Calcium Level 7.2L CBC/BMP Laboratory Tests 03/13/19 05:12 Microbiology Microbiology 03/12/19 Blood Culture, Received Pending 03/12/19 Blood Culture - Preliminary, Resulted Staphylococcus Aureus 03/11/19 Blood Culture - Preliminary, Resulted Staphylococcus Aureus 03/11/19 Urine Culture - Final, Complete 03/11/19 Blood Culture - Preliminary, Resulted Staphylococcus Aureus MCKENNA SIMMS MD Mar 13, 2019 09:47
--- NOTE | 2019-03-13 11:01 | PHACANCOPD ---
PHARMACY VANCOMYCIN DOSING Pt Demographics Demographics Patient Age:63 , Weight:74.200 , Gender: male Adjusted Body Weight Date: 03/13/19, Adjusted Body Weight: Kg Events Past 24 Hours Events Past 24 Hours: YES: Fever Vancomycin Vancomycin Load Y/N: Yes Load Dose Date Time Vancomycin Load Dose: 1750 MG Date:03/12/19 Time: 1200 Vancomycin Dose Date: 03/13/19. Current Vancomycin Dose: [1250 MG IV Q12H] Intermittent Dosing?: No Labs Micro Microbiology 03/12/19 Blood Culture, Received Pending 03/12/19 Blood Culture - Preliminary, Resulted Staphylococcus Aureus 03/11/19 Blood Culture - Preliminary, Resulted Staphylococcus Aureus 03/11/19 Urine Culture - Final, Complete 03/11/19 Blood Culture - Preliminary, Resulted Staphylococcus Aureus Creatinine Clearance Date:03/13/19. Creatinine Clearance: [~74 ML/MIN]. Assessment and Plan Maintaining Current Dose?: Yes Reason for dose change: No Dose Change Pharmacist Note Pharmacist Note Date: 03/13/19. Pharmacist note: Pharmacy consulted for dosing of Vancomycin due to Staph Aureus BC x3. He was loaded yesterday with 1750 mg and followed with 1250 mg IV q12h. Trough today resulted @ 12.6. We'll continue current regimen and continue to monitor and make adjustments as needed. TIMOTHY [facility]KEON [facility] Mar 13, 2019 11:01
[2019-03-13 11:37] VITALS: BP 115/62
[2019-03-13] MEDS: VANCOMYCIN HCL 750 MG, VIAL MATE ADAPTER 1 EACH in D5W 250 ML IV SCH ×2 (11:55→22:05)
[2019-03-13] MEDS: VANCOMYCIN HCL 500 MG in D5W MINI-BAG PLUS 100 ML IV SCH ×2 (13:36→23:20)
[2019-03-13 15:41] VITALS: BP 115/77
--- NOTE | 2019-03-13 18:21 | CR ---
DATE OF CONSULTATION: 03/13/2019 CONSULTATION REPORT FOR: Hospitalist. REASON FOR CONSULTATION: Evaluation of Staphylococcus aureus bacteremia. HISTORY OF PRESENT ILLNESS: Mr. Padilla is a 63-year-old gentleman who presented to the emergency room, brought in by his significant other, because of confusion, urinary incontinence with dysuria associated with fever and chills. The patient had frequent falls the past of couple days prior to admission. He stated he was losing his balance and his back pain was worsening, has low back pain which is chronic, radiating to both hips. He denied lightheadedness or dizziness. He did have some complaint of headache with pressure behind his temples bilaterally. The patient was admitted with a diagnosis of sepsis. He was started on IV Rocephin and then switched to vancomycin when blood cultures were available. PAST MEDICAL HISTORY: 1. Insulin-dependent diabetes. 2. Hypertension. 3. Neuropathy, on pregabalin. 4. History of chronic hepatitis C with liver cirrhosis, for which he was treated at the [facility] with probably interferon. He is not very sure about that. He denies any history of IV drug use. He thinks he had blood transfusion or from the vaccinations that he got infected 5. History of liver laceration from trauma. 6. Punctured lung from hitting a tree while sledding. 7. CAD NSTEMI cardiac cath 12/2018 PAST SURGICAL HISTORY: 1. Exploratory laparotomy for liver laceration. 2. Appendectomy. 3. Laparoscopic cholecystectomy. ALLERGIES: GABAPENTIN and ALDACTONE. SOCIAL HISTORY: He is with his significant other for the past 43 years, Lee Ann. She is the mother of their 43-year-old son. He quit smoking, less than a pack a day. He denies alcohol use. He is a follows at [facility] moved to [place] 4 month ago PHYSICAL EXAMINATION: He looks older than stated age, in no acute distress. He is somewhat forgetful, poor historian. Temperature over the past 48 hours, maximum temperature (T-max) of 104.6 on admission, today his T-max was 100.1. Pulse 78, respirations 18, blood pressure 115/77, oxygen saturation 95% on room air. HEART: Normal S1, S2. No murmurs, rubs or gallops appreciated. Lungs are clear. No wheezes, rales, or rhonchi but diminished. ABDOMEN: Soft, nontender. No hepatosplenomegaly. He has a midline scar of exploratory laparotomy, cholecystectomy, laparoscopic scars well-healed and appendectomy scar right lower quadrant. GENITOURINARY (): Normal for age. BACK: Mild lumbosacral tenderness from L1-5. He has right hip ecchymosis and a right flank ecchymosis, yellowish to purplish in color. EXTREMITIES: No clubbing, cyanosis or edema. He has thick onychomycosis. He has positive straight leg raising on the right side at 30 degrees. LABORATORY DATA: White count is 10, hemoglobin 10.9, hematocrit 30.9, platelets 137. ESR 37. Sodium 133, potassium 3.9, chloride 105, bicarbonate 20, BUN 19, creatinine 1.04, glucose 323, calcium 7.2, CRP 10.3. SEROLOGY: Influenza A and B was negative. Respiratory panel was negative. Glucose have been ranging between 164-352 today, yesterday were over 500. Blood cultures 03/11/2019 two sets were positive for Staphylococcus aureus. Susceptibilities are still pending. On 03/12/2019, blood culture was positive for Staphylococcus aureus, 03/12/2019 second culture at 8:00 p.m. is pending. IMAGING STUDIES: Chest x-ray showed no acute infiltrates, but pulmonary venous hypertension. Knee x-ray without acute pathology. CT abdomen and pelvis shows liver cirrhosis with portal venous collateral channels, portal hypertension, post cholecystectomy. Cervical spine CT shows degenerative changes at C5, C6 and C7, most pronounced. Chest CT done on 03/11/2019 shows fissural thickening and mild diffuse interstitial edema, possibly CHF. MEDICATIONS: - insulin sliding scale 5 units subcutaneous before meals and at bedtime - vancomycin 1250 mg IV every 12 hours - Levemir 20 units subcutaneous at bedtime - lactulose 15 mL by mouth twice a day - oxycodone 5 mg by mouth twice a day - albuterol 2.5 every two hours as needed - Tylenol as needed - Lyrica 150 mg by mouth twice a day ALLERGIES: GABAPENTIN and SPIRONOLACTONE. IMPRESSION: This is a 63-year-old gentleman who presents with Staphylococcus aureus bacteremia and two days of fever, worsening headache, back pain, fall and dysuria with incontinence. Blood cultures, three sets are positive for Staphylococcus aureus, not identified yet. Urine culture had two different pathogens. Urinalysis had some pyuria. He has a history of chronic low back pain from degenerative disc disease. My concern is he may have discitis or an epidural abscess as the source of infection. Other possibility includes endocarditis or pyelonephritis/ UTI. The patient has also underlying liver cirrhosis from hepatitis C with mild thrombocytopenia. The patient was treated and cured from hepatitis C. PLAN: Schedule lumbar spine MRI tomorrow to rule out discitis or epidural abscess. If that is negative, I would recommend obtaining a transesophageal echocardiogram on Sunday. Repeat blood cultures today, Once blood cultures are negative, the patient will need a peripherally inserted central catheter (PICC) line for IV antibiotics. He will need a minimum of two weeks of IV antibiotics for Staphylococcus aureus bacteremia. If the patient has methicillin-sensitive Staphylococcus aureus (MSSA), please switch antibiotics to nafcillin 2 grams IV every four hours. ESR and CRP ordered Review of echocardiogram read by Dr. Inman shows a normal left ventricle dimension thickness, no regional wall motion abnormality, ejection fraction 70%, no vegetation seen, no aortic regurgitation, moderate mitral regurgitation, moderately elevated right ventricular systolic pressure. [facility]
[2019-03-13 20:00] VITALS: BP 160/64
[2019-03-13] MEDS: ALBUTEROL SULFATE 2.5 MG/0.5 ML INH NEB SOLN NEB PRN (21:23)
[2019-03-13] MEDS: LEVEMIR (INSULIN DETEMIR) 1 UNITS/0.01ML SC SCH (22:05)
[2019-03-13 23:59] VITALS: BP 134/81
[2019-03-14 05:09] LABS: HEMATOCRIT 30.5 % (42.0-52.0); HEMOGLOBIN 10.3 g/dl (13.5-17.5); MEAN CORPUSCULAR HEMOGLOBIN 32.1 pg (27.0-33.0); MEAN CORPUSCULAR HGB CONC 33.8 g/dl (32.0-36.5); PLATELET COUNT, AUTOMATED 126 10^3/uL (150-450); RED BLOOD COUNT 3.21 10^6/uL (4.30-6.10)
[2019-03-14 05:18] LABS: PROTHROMBIN TIME 39.1 SECONDS (11.8-14.0)
[2019-03-14 05:29] LABS: BLOOD UREA NITROGEN 14 MG/DL (7-18); CALCIUM LEVEL 7.6 MG/DL (8.8-10.2); CARBON DIOXIDE LEVEL 23 MEQ/L (21-32); CHLORIDE LEVEL 104 MEQ/L (98-107); CREATININE FOR GFR 0.88 MG/DL (0.70-1.30); GLOMERULAR FILTRATION RATE > 60.0 (>49); GLUCOSE, FASTING 274 MG/DL (70-100); POTASSIUM SERUM 3.9 MEQ/L (3.5-5.1); SODIUM LEVEL 134 MEQ/L (136-145)
[2019-03-14] MEDS: lisinopriL 10 MG TAB PO SCH (07:44)
[2019-03-14] MEDS: LACTULOSE 20 GM/30 ML SYRUP UD PO SCH ×2 (07:44→21:01)
[2019-03-14] MEDS: PREGABALIN 75 MG CAP(LYRICA) PO SCH ×2 (07:44→21:01)
[2019-03-14] MEDS: HumaLOG INSULIN (NovoLOG) PER UNIT SC SCH ×4 (07:45→20:51)
[2019-03-14] MEDS: HumuLIN (NovoLIN)70/30 INSULIN INJ PER UNIT SC SCH ×2 (07:45→17:23)
[2019-03-14] MEDS: oxyCODONE 5MG TAB PO PRN (07:52)
[2019-03-14 08:00] VITALS: BP 136/62
[2019-03-14] MEDS ORDERED: LORazepam 2 MG/ML VIAL (J2060) IV ONE (10:00)
[2019-03-14] MEDS: VANCOMYCIN HCL 750 MG, VIAL MATE ADAPTER 1 EACH in D5W 250 ML IV SCH (10:46)
[2019-03-14 12:00] VITALS: BP 137/63
[2019-03-14] MEDS ORDERED: HumuLIN (NovoLIN)70/30 INSULIN INJ PER UNIT SC SCH (12:00)
[2019-03-14] MEDS ORDERED: PROHANCE 279.3MG/ML 15ML VIAL (A9576) As Ordered ONE (12:12)
[2019-03-14 13:00] VITALS: BP 118/69
--- NOTE | 2019-03-14 13:17 | REP ---
INDICATION: Bacteremia PROCEDURE: MRI lumbar spine with without contrast. Sagittal T1-T2 and STIR images obtained. Axial T1 and T2-weighted images obtained. Post contrast imaging obtained. COMPARISON STUDIES: No prior similar studies FINDINGS: There is [id number] multilevel degenerative disc disease loss of disc height and disc desiccation seen diffusely throughout the lumbar spine. Vertebral heights are preserved. Disc heights are well preserved. On the sagittal T2-weighted images, no limiting canal stenosis. Conus ends normally at L1 level. Image quality is suboptimal, apparently secondary to patient body habitus. Given this limitation, there is no evidence of focal infection. No evidence of abscess, osteomyelitis or diskitis. No abnormal soft tissue findings. The spinal canal widely patent. No evidence of foraminal compromise. IMPRESSION: 1. [id number] multilevel degenerative disc disease. Suboptimal image quality is likely secondary to patient body habitus. 2. No evidence of abscess, osteomyelitis deep or diskitis. Soft tissues appear unremarkable. Electronically Signed by Tan Che MD 03/14/2019 01:08 P
[2019-03-14] MEDS: NAFCILLIN SOD 2 GM in D5W MINI-BAG PLUS 50 ML IV SCH ×3 (13:19→21:02)
[2019-03-14 16:00] VITALS: BP 128/60
--- NOTE | 2019-03-14 16:07 | IPNPDOC ---
Subjective Date Seen The patient was seen on 03/14/19. Subjective Chief Complaint/HPI Seen and examined at bedside, no specific complaints today, anxious to go home. Denies cp/pressure, ever/chills, sob. General: Reports: Normal Appetite; Denies: Chills, Night Sweats, Fatigue, Malaise Objective Physical Examination General Exam: Positive: Alert Eye Exam: Positive: PERRLA, Conjunctiva & lids normal, EOMI; Negative: Sclera icteric ENT Exam: Positive: Atraumatic, Mucous membr. moist/pink, Pharynx Normal Neck Exam: Positive: Supple; Negative: JVD, thyromegaly Chest Exam: Positive: Diminished Heart Exam: Positive: Rate Normal, Regular Rhythm, Normal S1, Normal S2; Negative: Murmurs, Rubs Telemetry: Positive: No significant arrhythmia Abdomen Exam: Positive: Normal bowel sounds, Soft; Negative: Tenderness, Hepatospenomegaly Male Exam: Positive: Normal Genital Exam Extremity Exam: Positive: Normal pulses; Negative: Clubbing, Cyanosis, Edema Skin Exam: Positive: Nl turgor and temperature; Negative: Rash, Breakdown Neuro Exam: Positive: Normal Gait, Normal Speech, Cranial Nerves 3-12 NL, Reflexes 2+ Psych Exam: Positive: Mental status NL, Mood NL, Oriented x 3 Assessment /Plan Assessment 1. Staph aureus bacteremia - on IV vancomycin q12, sensitivities pending. - seen by ID. - MRI lumbar spine negative for epidural abscess/discitis. - ECHO negative for vegetations, normal EF. - repeat blood cultures sent on 03/13. - plan for [facility] on Sunday. 2. hypoxia (resolved) - continue supplemental oxygen as needed. - ECHO with normal EF. 3. uncontrolled hyperglycemia - improving. - on levemir, 70/30. - monitor FSBS, adjust insulin dose accordingly. 4. HTN - continue lisinopril. 5. peripheral neuropathy - continue lyrica. 6. hx TIA - was on coumadin for stroke prophylaxis. - hold coumadin as supratherapeutic INR. - daily INR checks. 7. liver cirrhosis/portal hypertension/hx Hep C - ammonia level normal, monitor. - on lactulose BID as outpatient for prevention, continue. 8. DVT ppx - SCD's. Plan/VTE VTE Prophylaxis Ordered?: Yes VS, I&O, 24H, Fishbone Vital Signs/I&O Vital Signs Date Time Temp Pulse Resp B/P (MAP) Pulse Ox O2 Delivery O2 Flow Rate FiO2 03/14/19 08:00 98.7 80 20 136/62 (86) 93 Room Air 03/12/19 08:00 3.0 I&O- Last 24 Hours up to 6 AM 03/14/19 06:00 Intake Total 1780 ml Output Total 1000 ml Balance 780 ml Laboratory Data 24H LABS Laboratory Tests 2 03/13/19 11:37: Bedside Glucose (Misc Panel) 352H 03/13/19 16:26: Erythrocyte Sedimentation Rate 37H, C-Reactive Protein, Quantitative 10.30H 03/13/19 17:14: Bedside Glucose (Misc Panel) 164H 03/13/19 19:49: Bedside Glucose (Misc Panel) 152H 03/14/19 04:47: Nucleated Red Blood Cells % (auto) 0.0, Prothrombin Time 39.1H, Prothromb Time International Ratio 4.00, Anion Gap 7L, Glomerular Filtration Rate > 60.0, Calcium Level 7.6L CBC/BMP Laboratory Tests 03/14/19 04:47 Microbiology Microbiology 03/13/19 Blood Culture, Received Pending 03/12/19 Blood Culture - Preliminary, Resulted No growth after 24 hours . All specim... 03/12/19 Blood Culture - Final, Complete Staphylococcus Aureus 03/11/19 Blood Culture - Final, Complete Staphylococcus Aureus 03/11/19 Urine Culture - Final, Complete 03/11/19 Blood Culture - Final, Complete Staphylococcus Aureus MCKENNA SIMMS MD Mar 14, 2019 09:52
[2019-03-14 20:00] VITALS: BP 122/62
[2019-03-14] MEDS: LEVEMIR (INSULIN DETEMIR) 1 UNITS/0.01ML SC SCH (21:01)
[2019-03-14] MEDS ORDERED: HYALURONIDASE 150UNIT/ML 1ML VIAL (AMPHADASE) (J3470) SC ONE (22:30)
[2019-03-15] VITALS: BP 130/65
[2019-03-15] MEDS: NAFCILLIN SOD 2 GM in D5W MINI-BAG PLUS 50 ML IV SCH ×7 (00:56→23:31)
[2019-03-15 04:00] VITALS: BP 131/65
[2019-03-15 05:07] LABS: HEMOGLOBIN 10.4 g/dl (13.5-17.5); MEAN CORPUSCULAR HEMOGLOBIN 32.4 pg (27.0-33.0); MEAN CORPUSCULAR HGB CONC 34.7 g/dl (32.0-36.5); MEAN CORPUSCULAR VOLUME 93.5 fl (80.0-96.0); PLATELET COUNT, AUTOMATED 148 10^3/uL (150-450); RED BLOOD COUNT 3.21 10^6/uL (4.30-6.10); WHITE BLOOD COUNT 7.6 10^3/uL (4.0-10.0)
[2019-03-15 05:18] LABS: INR 4.77
[2019-03-15 05:35] LABS: BLOOD UREA NITROGEN 9 MG/DL (7-18); CALCIUM LEVEL 7.3 MG/DL (8.8-10.2); CARBON DIOXIDE LEVEL 24 MEQ/L (21-32); CHLORIDE LEVEL 107 MEQ/L (98-107); CREATININE FOR GFR 0.74 MG/DL (0.70-1.30); GLOMERULAR FILTRATION RATE > 60.0 (>49); GLUCOSE, FASTING 156 MG/DL (70-100); POTASSIUM SERUM 3.7 MEQ/L (3.5-5.1); SODIUM LEVEL 138 MEQ/L (136-145)
[2019-03-15] MEDS: HumuLIN (NovoLIN)70/30 INSULIN INJ PER UNIT SC SCH ×3 (07:30→18:33)
[2019-03-15 08:00] VITALS: BP 146/73
[2019-03-15] MEDS: LACTULOSE 20 GM/30 ML SYRUP UD PO SCH ×2 (09:53→23:31)
[2019-03-15] MEDS: PREGABALIN 75 MG CAP(LYRICA) PO SCH ×2 (09:53→23:31)
[2019-03-15] MEDS: lisinopriL 10 MG TAB PO SCH (09:54)
[2019-03-15] MEDS: HumaLOG INSULIN (NovoLOG) PER UNIT SC SCH ×4 (09:54→21:00)
[2019-03-15] MEDS: oxyCODONE 5MG TAB PO PRN (11:00)
[2019-03-15 12:00] VITALS: BP 131/78
--- NOTE | 2019-03-15 12:20 | IPNPDOC ---
Subjective Date Seen The patient was seen on 03/15/19. Subjective Chief Complaint/HPI seen and examined at bedside, wants to leave stating "why do I need all these tests". Denies cp/pressure, sob, cough, fever/chills. General: Reports: Normal Appetite; Denies: Chills, Night Sweats, Fatigue, Malaise Objective Physical Examination General Exam: Positive: Alert Eye Exam: Positive: PERRLA, Conjunctiva & lids normal, EOMI; Negative: Sclera icteric ENT Exam: Positive: Atraumatic, Mucous membr. moist/pink, Pharynx Normal Neck Exam: Positive: Supple; Negative: JVD, thyromegaly Chest Exam: Positive: Diminished Heart Exam: Positive: Rate Normal, Regular Rhythm, Normal S1, Normal S2; Negative: Murmurs, Rubs Telemetry: Positive: No significant arrhythmia Abdomen Exam: Positive: Normal bowel sounds, Soft; Negative: Tenderness, Hepatospenomegaly Male Exam: Positive: Normal Genital Exam Extremity Exam: Positive: Normal pulses; Negative: Clubbing, Cyanosis, Edema Skin Exam: Positive: Nl turgor and temperature; Negative: Rash, Breakdown Neuro Exam: Positive: Normal Gait, Normal Speech, Cranial Nerves 3-12 NL, Reflexes 2+ Psych Exam: Positive: Mental status NL, Mood NL, Oriented x 3 Assessment /Plan Assessment 1. Staph aureus bacteremia/MSSA - MSSA, antibiotics changed to nafcillin 2gm IV q4h. - ID following. - MRI lumbar spine negative for epidural abscess/discitis. - ECHO negative for vegetations, normal EF. - repeat blood cultures sent on 03/13. - plan for [facility] on Sunday, consult placed to cardiology. 2. hypoxia (resolved) - continue supplemental oxygen as needed. - ECHO with normal EF. 3. uncontrolled hyperglycemia - improving. - on levemir, 70/30. - monitor FSBS, adjust insulin dose accordingly. 4. HTN - continue lisinopril. 5. peripheral neuropathy - continue lyrica. 6. hx TIA - was on coumadin for stroke prophylaxis. - hold coumadin as supratherapeutic INR. - daily INR checks. 7. liver cirrhosis/portal hypertension/hx Hep C - ammonia level normal, monitor. - on lactulose BID as outpatient for prevention, continue. 8. DVT ppx - SCD's. Plan/VTE VTE Prophylaxis Ordered?: Yes VS, I&O, 24H, Fishbone Vital Signs/I&O Vital Signs Date Time Temp Pulse Resp B/P (MAP) Pulse Ox O2 Delivery O2 Flow Rate FiO2 03/15/19 09:54 146/73 03/15/19 08:00 98.9 82 16 96 Room Air 03/12/19 08:00 3.0 I&O- Last 24 Hours up to 6 AM 03/15/19 06:00 Intake Total 1756 ml Output Total 2650 ml Balance -894 ml Laboratory Data 24H LABS Laboratory Tests 2 03/14/19 13:09: Bedside Glucose (Misc Panel) 366H 03/14/19 17:14: Bedside Glucose (Misc Panel) 353H 03/14/19 20:48: Bedside Glucose (Misc Panel) 211H 03/15/19 04:43: Nucleated Red Blood Cells % (auto) 0.0, Prothrombin Time 45.0H, Prothromb Time International Ratio 4.77, Anion Gap 7L, Glomerular Filtration Rate > 60.0, Calcium Level 7.3L CBC/BMP Laboratory Tests 03/15/19 04:43 Microbiology Microbiology 03/13/19 Blood Culture - Preliminary, Resulted No growth after 24 hours . All specim... 03/12/19 Blood Culture - Preliminary, Resulted No Growth after 48 hours. All Specime... 03/12/19 Blood Culture - Final, Complete Staphylococcus Aureus 03/11/19 Blood Culture - Final, Complete Staphylococcus Aureus 03/11/19 Urine Culture - Final, Complete 03/11/19 Blood Culture - Final, Complete Staphylococcus Aureus MCKENNA SIMMS MD Mar 15, 2019 10:14
[2019-03-15 16:00] VITALS: BP 146/70
--- NOTE | 2019-03-15 19:05 | IPN ---
DATE: 03/14/2019 Mr. Padilla was seen on the stretcher going to the MRI suite for a lumbar spine MRI. He was given Ativan and was sedated. When he woke up, he was giggly and did not have any major complaints. He had a maximal temperature of 100.5 last night. His significant other, Adwoa, was at his bedside. She stated that for 24-48 hours prior to admission the patient was very confused, incontinent. Fell at least 10-20 times without any significant reason. She could not recall that he stated that he had any pain anywhere that made him fall, other than that he was confused. LABORATORIES Today, white count 8, hemoglobin 10.3, hematocrit 30.5, platelets 126. Sodium 134, potassium 3.9, chloride 104, bicarbonate 23, BUN 14, creatinine 0.88, glucose 274, calcium 7.6, CRP 10.3. Blood cultures on March 11 and March 12 are positive for methicillin-sensitive Staphylococcus aureus (MSSA). Urine culture: No growth of clinical significance. Blood culture on March 12 at 2043, 20 hours after the first the March 12 culture, February 21, is negative, and blood culture from March 13 is pending. Lumbar spine MRI shows mild to moderate multilevel degenerative disc disease, suboptimal images. Quality is secondary to patient body habitus. No evidence of abscess, osteomyelitis, discitis. Soft tissues appear unremarkable. This was read by Dr. Tan Che. IMPRESSION: 1. Methicillin-sensitive Staphylococcus aureus bacteremia associated with confusion, incontinence. Still the source of this infection is unknown, and endocarditis should be ruled out. 2. History of hepatitis C with liver cirrhosis, status post treatment last year, according to his significant other. 3. A history of strokes, on Coumadin. PLAN: Discontinue IV vancomycin. Switch to nafcillin 2 grams IV every 4 hours. If blood cultures are negative from yesterday, please schedule peripherally inserted central catheter (PICC) line. The patient will need IV antibiotics for at least 2 weeks for Staphylococcus aureus bacteremia and possibly longer if he has endocarditis. Please consult cardiology for transesophageal echocardiogram to be done next week. Please schedule for Sunday. Followup complete blood count (CBC), C-reactive protein (CRP), erythrocyte sedimentation rate (ESR) on Sunday.
[2019-03-15 20:00] VITALS: BP 153/67
[2019-03-15] MEDS: LEVEMIR (INSULIN DETEMIR) 1 UNITS/0.01ML SC SCH (23:30)
[2019-03-16] VITALS: BP 147/72
[2019-03-16] MEDS: NAFCILLIN SOD 2 GM in D5W MINI-BAG PLUS 50 ML IV SCH ×6 (00:02→21:47)
[2019-03-16] MEDS: oxyCODONE 5MG TAB PO PRN ×2 (01:02→09:10)
[2019-03-16 04:00] VITALS: BP 152/77
[2019-03-16 05:27] LABS: HEMOGLOBIN 10.4 g/dl (13.5-17.5); MEAN CORPUSCULAR HGB CONC 33.5 g/dl (32.0-36.5); MEAN CORPUSCULAR VOLUME 95.4 fl (80.0-96.0); PLATELET COUNT, AUTOMATED 146 10^3/uL (150-450); RED BLOOD COUNT 3.25 10^6/uL (4.30-6.10); WHITE BLOOD COUNT 7.1 10^3/uL (4.0-10.0)
[2019-03-16 05:41] LABS: INR 4.14; PROTHROMBIN TIME 40.2 SECONDS (11.8-14.0)
[2019-03-16 05:47] LABS: BLOOD UREA NITROGEN 7 MG/DL (7-18); CALCIUM LEVEL 7.1 MG/DL (8.8-10.2); CARBON DIOXIDE LEVEL 23 MEQ/L (21-32); CHLORIDE LEVEL 107 MEQ/L (98-107); CREATININE FOR GFR 0.89 MG/DL (0.70-1.30); GLOMERULAR FILTRATION RATE > 60.0 (>49); GLUCOSE, FASTING 145 MG/DL (70-100); POTASSIUM SERUM 3.6 MEQ/L (3.5-5.1); SODIUM LEVEL 138 MEQ/L (136-145)
[2019-03-16 08:00] VITALS: BP 135/67
--- NOTE | 2019-03-16 08:40 | IPNPDOC ---
Subjective Date Seen The patient was seen on 03/16/19. Subjective Chief Complaint/HPI Seen and examined at bedside, awake and alert, denies cp/pressure, sob, n/v/d, fever/chills, encouraged to ambulate. General: Reports: Normal Appetite; Denies: Chills, Night Sweats, Fatigue, Malaise Constitutional: Denies: Chills, Fever, Night Sweats Eyes: Denies: Pain, Vision change ENT: Denies: Head Aches, Ear Pain, Dysphagia Skin: Denies: Rash, Lesions, Breakdown Pulmonary: Denies: Dyspnea, Cough Cardiovascular: Denies: Chest Pain, Palpitations, Orthopnea, Paroxysmal Noc. Dyspnea, Lt Headedness Gastrointestinal: Denies: Nausea, Vomiting, Abdominal Pain, Diarrhea, Constipation Genitourinary: Denies: Dysuria, Frequency, Incontinence, Retention Hematologic: Denies: Bruising, Bleeding Excessively Musculoskeletal: Denies: Neck Pain, Back Pain, Joint Pain, Muscle Pain, Spasms Neurological: Denies: Weakness, Numbness, Change in speech, Confusion Psych: Reports: Mood Normal; Denies: Depression, Memory Issues Objective Physical Examination General Exam: Positive: Alert Eye Exam: Positive: PERRLA, Conjunctiva & lids normal, EOMI; Negative: Sclera icteric ENT Exam: Positive: Atraumatic, Mucous membr. moist/pink, Pharynx Normal Neck Exam: Positive: Supple; Negative: JVD, thyromegaly Chest Exam: Positive: Diminished Heart Exam: Positive: Rate Normal, Regular Rhythm, Normal S1, Normal S2; Negative: Murmurs, Rubs Telemetry: Positive: No significant arrhythmia Abdomen Exam: Positive: Normal bowel sounds, Soft; Negative: Tenderness, Hepatospenomegaly Male Exam: Positive: Normal Genital Exam Extremity Exam: Positive: Normal pulses; Negative: Clubbing, Cyanosis, Edema Skin Exam: Positive: Nl turgor and temperature; Negative: Rash, Breakdown Neuro Exam: Positive: Normal Gait, Normal Speech, Cranial Nerves 3-12 NL, Reflexes 2+ Psych Exam: Positive: Mental status NL, Mood NL, Oriented x 3 Assessment /Plan Assessment 1. Staph aureus bacteremia/MSSA - MSSA, antibiotics changed to nafcillin 2gm IV q4h. - ID following. - MRI lumbar spine negative for epidural abscess/discitis. - ECHO negative for vegetations, normal EF. - repeat blood cultures sent on 03/13, NG x 48 hours. - plan for [facility] on Sunday, cardiology consulted, NPO after midnight. - plan for PICC line insertion. 2. hypoxia (resolved) - continue supplemental oxygen as needed. - ECHO with normal EF. 3. uncontrolled hyperglycemia - improving. - on levemir, 70/30. - monitor FSBS, adjust insulin dose accordingly. 4. HTN - continue lisinopril. 5. peripheral neuropathy - continue lyrica. 6. hx TIA - was on coumadin for stroke prophylaxis. - hold coumadin as supratherapeutic INR. - daily INR checks. 7. liver cirrhosis/portal hypertension/hx Hep C - ammonia level normal, monitor. - on lactulose BID as outpatient for prevention, continue. 8. DVT ppx - SCD's. Plan/VTE VTE Prophylaxis Ordered?: Yes VS, I&O, 24H, Fishbone Vital Signs/I&O Vital Signs Date Time Temp Pulse Resp B/P (MAP) Pulse Ox O2 Delivery O2 Flow Rate FiO2 03/16/19 08:00 98.9 82 18 135/67 (89) 93 Room Air 03/15/19 16:00 1.0 I&O- Last 24 Hours up to 6 AM 03/16/19 06:00 Intake Total 1660 ml Output Total 1575 ml Balance 85 ml Laboratory Data 24H LABS Laboratory Tests 2 03/15/19 12:05: Bedside Glucose (Misc Panel) 227H 03/15/19 16:36: Bedside Glucose (Misc Panel) 292H 03/15/19 21:00: Bedside Glucose (Misc Panel) 248H 03/16/19 04:41: Nucleated Red Blood Cells % (auto) 0.0, Prothrombin Time 40.2H, Prothromb Time International Ratio 4.14, Anion Gap 8, Glomerular Filtration Rate > 60.0, Calcium Level 7.1L CBC/BMP Laboratory Tests 03/16/19 04:41 Microbiology Microbiology 03/13/19 Blood Culture - Preliminary, Resulted No Growth after 48 hours. All Specime... 03/12/19 Blood Culture - Preliminary, Resulted No Growth after 72 hours. All specime... 03/12/19 Blood Culture - Final, Complete Staphylococcus Aureus 03/11/19 Blood Culture - Final, Complete Staphylococcus Aureus 03/11/19 Urine Culture - Final, Complete 03/11/19 Blood Culture - Final, Complete Staphylococcus Aureus MCKENNA SIMMS MD Mar 16, 2019 08:40
[2019-03-16] MEDS: HumaLOG INSULIN (NovoLOG) PER UNIT SC SCH ×4 (09:05→21:00)
[2019-03-16] MEDS: LACTULOSE 20 GM/30 ML SYRUP UD PO SCH ×2 (09:06→21:46)
[2019-03-16] MEDS: HumuLIN (NovoLIN)70/30 INSULIN INJ PER UNIT SC SCH ×3 (09:06→17:30)
[2019-03-16] MEDS: PREGABALIN 75 MG CAP(LYRICA) PO SCH ×2 (09:06→21:47)
[2019-03-16] MEDS: lisinopriL 10 MG TAB PO SCH (09:06)
[2019-03-16 12:00] VITALS: BP 130/62
--- NOTE | 2019-03-16 12:32 | IPN ---
DATE: 03/16/2019 I was asked by Dr. Em to perform transesophageal echocardiogram on Mr. Padilla. He has methicillin sensitive Staphylococcus aureus (MSSA) bacteremia without obvious source. I met with the patient, examined him and reviewed the indication and potential complications. He signed the appropriate consent. I tentatively will be scheduling the procedure for tomorrow depending on OR availability.
[2019-03-16 16:00] VITALS: BP 137/69
[2019-03-16 20:00] VITALS: BP 145/76
[2019-03-16] MEDS: LEVEMIR (INSULIN DETEMIR) 1 UNITS/0.01ML SC SCH (21:47)
[2019-03-16] MEDS: ACETAMINOPHEN TAB 650MG DOSE (2X325MG) PO PRN (23:15)
[2019-03-17] VITALS: BP 142/71
[2019-03-17] MEDS: NAFCILLIN SOD 2 GM in D5W MINI-BAG PLUS 50 ML IV SCH ×6 (01:36→21:08)
[2019-03-17 04:00] VITALS: BP 117/58
[2019-03-17 05:41] LABS: HEMATOCRIT 30.4 % (42.0-52.0); MEAN CORPUSCULAR HEMOGLOBIN 31.7 pg (27.0-33.0); MEAN CORPUSCULAR HGB CONC 32.9 g/dl (32.0-36.5); MEAN CORPUSCULAR VOLUME 96.5 fl (80.0-96.0); PLATELET COUNT, AUTOMATED 158 10^3/uL (150-450); RED BLOOD COUNT 3.15 10^6/uL (4.30-6.10); WHITE BLOOD COUNT 7.5 10^3/uL (4.0-10.0)
[2019-03-17 05:59] LABS: BLOOD UREA NITROGEN 8 MG/DL (7-18); C REACTIVE PROTEIN QUANTITATIV 4.56 MG/DL (0.00-0.30); CALCIUM LEVEL 7.2 MG/DL (8.8-10.2); CARBON DIOXIDE LEVEL 24 MEQ/L (21-32); CHLORIDE LEVEL 110 MEQ/L (98-107); CREATININE FOR GFR 1.12 MG/DL (0.70-1.30); GLOMERULAR FILTRATION RATE > 60.0 (>49); GLUCOSE, FASTING 65 MG/DL (70-100); INR 3.97; POTASSIUM SERUM 3.6 MEQ/L (3.5-5.1); PROTHROMBIN TIME 38.9 SECONDS (11.8-14.0); SODIUM LEVEL 141 MEQ/L (136-145)
[2019-03-17 06:01] LABS: ERYTHROCYTE SEDIMENTATION RATE 56 mm/hr (0-20)
[2019-03-17] MEDS ORDERED: LIDOCAINE VISCOUS 2% SOLN 15ML UDC As Ordered ONE (06:49)
[2019-03-17] MEDS ORDERED: CETACAINE SPRAY 5GM As Ordered ONE (06:49)
[2019-03-17] MEDS: HumuLIN (NovoLIN)70/30 INSULIN INJ PER UNIT SC SCH ×3 (07:30→17:40)
[2019-03-17] MEDS: HumaLOG INSULIN (NovoLOG) PER UNIT SC SCH ×4 (07:30→21:00)
[2019-03-17] MEDS ORDERED: propofoL 200 MG/20 ML VIAL As Ordered ONE (07:52)
[2019-03-17] MEDS ORDERED: LIDOCAINE 2% INJ 100 MG/5 ML SDV (FOR ANES.) As Ordered ONE (07:52)
[2019-03-17] MEDS ORDERED: LR 1,000 ML IV SCH (08:00)
[2019-03-17] MEDS ORDERED: ONDANSETRON 4MG/2ML VIAL (J2405) IV PRN (08:00)
[2019-03-17] MEDS ORDERED: METOCLOPRAMIDE INJ 10MG/2ML VIAL (J2765) IV PRN (08:00)
--- NOTE | 2019-03-17 08:53 | T-ECHO ---
DATE OF PROCEDURE: 03/17/2019 REFERRING PHYSICIAN: Dr. Em, Dr. Faust. ANESTHESIA: Bettie Gonzalez CRNA INDICATION: MSSA bacteremia. BRIEF HISTORY: Mr. Padilla is a 63-year-old man who was admitted with fever and chills and was found to have MSSA bacteremia of unclear source. Transthoracic echocardiogram did not reveal any vegetations but at the request of ID Service transesophageal echocardiogram is being performed with suspicion for endocarditis. I met with the patient yesterday and again this morning, I explained the rationale for the procedure and potential complications. He signed appropriate consent. PROCEDURE NOTE: The procedure was performed in the operating room. After appropriate time-out was taken and all appropriate monitors were applied, his throat was anesthetized using viscous lidocaine and Cetacaine spray. He was then positioned in left lateral decubital position. Bite block was applied. Anesthesiology provided sedation. When appropriate level of sedation was accomplished, the probe was introduced into esophagus and later stomach without difficulty. There were no immediate complications and the patient tolerated the procedure well. FINDINGS: There is normal left ventricular systolic function, no wall motion abnormalities are appreciated. Right ventricle also appears to be normally contractile. There is biatrial enlargement. Mitral valve appears intact. There are no vegetations, prolapse or loose cords noted. Based on color Doppler imaging there is only mild mitral insufficiency. Left atrial appendage is large and is free of thrombi. There is normal flow in both the left sided and right sided pulmonary veins. Aortic valve has three cusps. It has normal mobility and no visualized vegetations. Based on color Doppler imaging there is no stenosis and trivial insufficiency. Tricuspid valve also appears normal and it is free of vegetations and has normal mobility. By color Doppler imaging there is trace tricuspid insufficiency. TR signal was of poor quality but appears that pulmonary artery pressure is within normal limits. Pulmonic valve is also intact without free vegetations, and no stenosis or insufficiency based on Doppler interrogation. Atrial septum is intact based on 2-D and color Doppler imaging without any evidence of shunt. No pericardial effusion is noted. There is minimal atherosclerosis of thoracic aorta. CONCLUSION: 1. Preserved LV systolic function. 2. Preserved RV systolic function. 3. Biatrial enlargement. 4. Mild mitral insufficiency. 5. Trace aortic and tricuspid insufficiency. 6. Intact atrial septum. 7. Left atrial appendage free of thrombi. 8. Normal flow in pulmonary veins. 9. Minimal thoracic atherosclerosis. COMMENT: Subacute bacterial endocarditis (SBE) is not recommended. No evidence for bacterial endocarditis. MTDD
[2019-03-17 09:20] VITALS: BP 138/74
[2019-03-17] MEDS: LACTULOSE 20 GM/30 ML SYRUP UD PO SCH ×2 (10:01→21:08)
[2019-03-17] MEDS: PREGABALIN 75 MG CAP(LYRICA) PO SCH ×2 (10:01→21:08)
[2019-03-17] MEDS: lisinopriL 10 MG TAB PO SCH (10:01)
[2019-03-17] MEDS: oxyCODONE 5MG TAB PO PRN ×2 (10:55→21:08)
--- NOTE | 2019-03-17 11:16 | IPNPDOC ---
Subjective Date Seen The patient was seen on 03/17/19. Subjective Chief Complaint/HPI Seen and examined at bedside, awake and alert, no specific complaints. General: Reports: Normal Appetite; Denies: Chills, Night Sweats, Fatigue, Malaise Constitutional: Denies: Chills, Fever, Night Sweats Eyes: Denies: Pain, Vision change ENT: Denies: Head Aches, Ear Pain, Dysphagia Skin: Denies: Rash, Lesions, Breakdown Pulmonary: Denies: Dyspnea, Cough Cardiovascular: Denies: Chest Pain, Palpitations, Orthopnea, Paroxysmal Noc. Dyspnea, Lt Headedness Gastrointestinal: Denies: Nausea, Vomiting, Abdominal Pain, Diarrhea, Constipation Genitourinary: Denies: Dysuria, Frequency, Incontinence, Retention Hematologic: Denies: Bruising, Bleeding Excessively Musculoskeletal: Denies: Neck Pain, Back Pain, Joint Pain, Muscle Pain, Spasms Neurological: Denies: Weakness, Numbness, Change in speech, Confusion Psych: Reports: Mood Normal; Denies: Depression, Memory Issues Objective Physical Examination General Exam: Positive: Alert Eye Exam: Positive: PERRLA, Conjunctiva & lids normal, EOMI; Negative: Sclera icteric ENT Exam: Positive: Atraumatic, Mucous membr. moist/pink, Pharynx Normal Neck Exam: Positive: Supple; Negative: JVD, thyromegaly Chest Exam: Positive: Diminished Heart Exam: Positive: Rate Normal, Regular Rhythm, Normal S1, Normal S2; Negative: Murmurs, Rubs Telemetry: Positive: No significant arrhythmia Abdomen Exam: Positive: Normal bowel sounds, Soft; Negative: Tenderness, Hepatospenomegaly Male Exam: Positive: Normal Genital Exam Extremity Exam: Positive: Normal pulses; Negative: Clubbing, Cyanosis, Edema Skin Exam: Positive: Nl turgor and temperature; Negative: Rash, Breakdown Neuro Exam: Positive: Normal Gait, Normal Speech, Cranial Nerves 3-12 NL, Reflexes 2+ Psych Exam: Positive: Mental status NL, Mood NL, Oriented x 3 Assessment /Plan Assessment 1. Staph aureus bacteremia/MSSA - MSSA, antibiotics changed to nafcillin 2gm IV q4h. - ID following. - MRI lumbar spine negative for epidural abscess/discitis. - ECHO negative for vegetations, normal EF. - repeat blood cultures sent on 03/13, NG x 48 hours. - VIJAYA negative for vegetations/endocarditis. - plan for PICC line insertion today. - discharge planning with IV antibiotics x 14 days from last negative blood culture. 2. hypoxia (resolved) - continue supplemental oxygen as needed. - ECHO with normal EF. 3. uncontrolled hyperglycemia - improving. - on levemir, 70/30. - monitor FSBS, adjust insulin dose accordingly. 4. HTN - continue lisinopril. 5. peripheral neuropathy - continue lyrica. 6. hx TIA - was on coumadin for stroke prophylaxis. - hold coumadin as supratherapeutic INR. - daily INR checks. 7. liver cirrhosis/portal hypertension/hx Hep C - ammonia level normal, monitor. - on lactulose BID as outpatient for prevention, continue. 8. DVT ppx - SCD's. Plan/VTE VTE Prophylaxis Ordered?: Yes VS, I&O, 24H, Fishbone Vital Signs/I&O Vital Signs Date Time Temp Pulse Resp B/P (MAP) Pulse Ox O2 Delivery O2 Flow Rate FiO2 03/17/19 10:55 18 03/17/19 10:01 152/85 03/17/19 09:20 97.7 70 94 Room Air 03/17/19 08:15 2 I&O- Last 24 Hours up to 6 AM 03/17/19 06:00 Intake Total 1840 ml Output Total 2350 ml Balance -510 ml Laboratory Data 24H LABS Laboratory Tests 2 03/16/19 12:00: Bedside Glucose (Misc Panel) 155H 03/16/19 16:50: Bedside Glucose (Misc Panel) 112 03/16/19 21:36: Bedside Glucose (Misc Panel) 160H 03/17/19 05:04: Nucleated Red Blood Cells % (auto) 0.0, Erythrocyte Sedimentation Rate 56H, Prothrombin Time 38.9H, Prothromb Time International Ratio 3.97, Anion Gap 7L, Glomerular Filtration Rate > 60.0, Calcium Level 7.2L, C-Reactive Protein, Quantitative 4.56H 03/17/19 09:39: Bedside Glucose (Misc Panel) 70L CBC/BMP Laboratory Tests 03/17/19 05:04 Microbiology Microbiology 03/13/19 Blood Culture - Preliminary, Resulted No Growth after 72 hours. All specime... 03/12/19 Blood Culture - Preliminary, Resulted No Growth after 72 hours. All specime... 1/8/20 Blood Culture - Final, Complete Staphylococcus Aureus 03/11/19 Blood Culture - Final, Complete Staphylococcus Aureus 03/11/19 Urine Culture - Final, Complete 03/11/19 Blood Culture - Final, Complete Staphylococcus Aureus MCKENNA SIMMS MD Mar 17, 2019 11:15
[2019-03-17 12:00] VITALS: BP 148/70
[2019-03-17] MEDS ORDERED: LIDOCAINE 1% MDV 20ML VIAL As Ordered ONE (14:26)
[2019-03-17 16:00] VITALS: BP 158/76
[2019-03-17] MEDS: SODIUM CHLORIDE 0.9% INJ 10 ML SYR IV SCH (17:40)
--- NOTE | 2019-03-17 19:05 | REP ---
Procedure: PICC line insertion with Arik The procedure was performed under the direct supervision of Dr. Jasmine. The risks and benefits of the procedure were explained to the patient and informed consent was obtained. The right basilic vein was localized using ultrasound guidance. The skin was prepped and draped in a sterile fashion. 2% lidocaine was used as a local anesthetic. Using ultrasound guidance the basilic vein was cannulated and a 0.018 guidewire was inserted and advanced to the SVC using fluoroscopic guidance. The needle was removed and a 4.5 Sammarinese dilator and peel-away sheath was inserted over the guide wire. A 4.5 Sammarinese single lumen catheter was cut to length of 45 cm. The dilator was removed and the catheter was inserted over the guide wire with the tip ending in the SVC. The peel-away sheath was removed and the catheter was flushed with heparinized saline as per Hospital protocol. The catheter was affixed to the skin and a sterile dressing was applied. The patient tolerated the procedure well and there were no immediate complications. 0.2 minutes of fluoro time was utilized for this procedure. Electronically Signed by HARRIET Eric 03/17/2019 04:08 P Electronically Signed by Jerry Jasmine MD 03/17/2019 06:55 P
[2019-03-17 20:00] VITALS: BP 156/76
--- NOTE | 2019-03-17 20:54 | IPN ---
DATE: 03/17/2019 Francois continues to improve. He still complains of low back pain with sciatica. He denies any nausea, vomiting or diarrhea. He has chronic bilateral shoulder pain which are not any different. He has a history of rotator cuff surgery on the right side. LABORATORY DATA: White count is 7.5, hemoglobin 10, hematocrit 30.4, platelets 158. ESR 56. Sodium 141, potassium 3.6, chloride 110, bicarbonate 24, BUN 8, creatinine 1.12, glucose 65, calcium 7.2, CRP is 4.56 down from 10.3. Blood cultures on 03/11/2019, MSSA and 03/12/2019 at 1220 hours was positive, but 03/12/2019 at 2043 hours was negative, 03/13/2019 at 1626 hours blood culture was negative. IMAGING STUDIES: Lumbar spine MRI done on 03/14/2019 with and without contrast showed mild to moderate multilevel degenerative disc disease but images were not excellent due to body habitus but there was no evidence of abscess osteomyelitis or discitis. Transesophageal echocardiogram done by Dr. Jenkins on 03/17/2019 shows no vegetations, preserved left ventricular and right ventricular systolic function, mild mitral insufficiency. PHYSICAL EXAMINATION: Temperature is 98.8, T-max today was 100.5, pulse 87, respirations 16, blood pressure 158/76, oxygen saturation 95% on room air. Heart: Normal S1, S2 with a systolic ejection murmur, holosystolic 2/6. Lungs are clear. No wheezes, rales, or rhonchi. Abdomen: Soft, nontender. Extremities: Trace edema. The patient has pitting edema in his pelvic area and hips. He has a right hip flank bruise which is old. Shoulders: Right shoulder has a healed scar. Both have fair range of motion. He is able to move both shoulders to about 90 degrees. Back: Mild lumbosacral tenderness L4, L5, S1. He has positive straight leg raising bilaterally at about 30 degrees. IMPRESSION: 1. MSSA bacteremia with a negative transesophageal echocardiogram, negative lumbar spine MRI, negative CT abdomen, chest and cervical CT. The patient has no hardware in place. The source of infection is still unclear. 2. History of liver cirrhosis and hepatitis C that was cured. PLAN: Discontinue IV vancomycin. Switch to nafcillin 2 grams IV every 4 hours. The patient will need 2 weeks of IV antibiotics from negative culture which is 03/13/2019. End of treatment would be 03/27/2019. Will follow up CBC, CMP, CRP, sedimentation rate weekly. If the patient develops any other pains then this would be imaged, but at this time the patient has had multiple imaging without any source of infection and I would consider this as an uncomplicated Staphylococcus aureus bacteremia.
[2019-03-17] MEDS: LEVEMIR (INSULIN DETEMIR) 1 UNITS/0.01ML SC SCH (21:08)
[2019-03-18] VITALS: BP 142/72
[2019-03-18] MEDS: NAFCILLIN SOD 2 GM in D5W MINI-BAG PLUS 50 ML IV SCH ×6 (00:35→21:41)
[2019-03-18 04:00] VITALS: BP 146/68
[2019-03-18] MEDS: SODIUM CHLORIDE 0.9% INJ 10 ML SYR IV SCH ×2 (05:28→17:53)
[2019-03-18 06:13] LABS: HEMATOCRIT 31.7 % (42.0-52.0); HEMOGLOBIN 10.5 g/dl (13.5-17.5); MEAN CORPUSCULAR HEMOGLOBIN 32.3 pg (27.0-33.0); MEAN CORPUSCULAR HGB CONC 33.1 g/dl (32.0-36.5); MEAN CORPUSCULAR VOLUME 97.5 fl (80.0-96.0); PLATELET COUNT, AUTOMATED 173 10^3/uL (150-450); RED BLOOD COUNT 3.25 10^6/uL (4.30-6.10); WHITE BLOOD COUNT 8.3 10^3/uL (4.0-10.0)
[2019-03-18 06:24] LABS: INR 2.57; PROTHROMBIN TIME 27.5 SECONDS (11.8-14.0)
[2019-03-18 06:38] LABS: BLOOD UREA NITROGEN 8 MG/DL (7-18); CALCIUM LEVEL 7.5 MG/DL (8.8-10.2); CARBON DIOXIDE LEVEL 25 MEQ/L (21-32); CHLORIDE LEVEL 107 MEQ/L (98-107); CREATININE FOR GFR 1.04 MG/DL (0.70-1.30); GLOMERULAR FILTRATION RATE > 60.0 (>49); GLUCOSE, FASTING 63 MG/DL (70-100); POTASSIUM SERUM 3.7 MEQ/L (3.5-5.1); SODIUM LEVEL 138 MEQ/L (136-145)
[2019-03-18] MEDS: HumuLIN (NovoLIN)70/30 INSULIN INJ PER UNIT SC SCH ×3 (07:30→17:53)
[2019-03-18] MEDS: HumaLOG INSULIN (NovoLOG) PER UNIT SC SCH ×4 (07:30→21:00)
[2019-03-18 07:51] VITALS: BP 169/80
[2019-03-18] MEDS: lisinopriL 10 MG TAB PO SCH (09:06)
[2019-03-18] MEDS: LACTULOSE 20 GM/30 ML SYRUP UD PO SCH ×2 (09:06→21:40)
[2019-03-18] MEDS: PREGABALIN 75 MG CAP(LYRICA) PO SCH ×2 (09:06→21:38)
[2019-03-18] MEDS: ACETAMINOPHEN TAB 650MG DOSE (2X325MG) PO PRN (09:09)
[2019-03-18] MEDS: oxyCODONE 5MG TAB PO PRN ×2 (09:09→17:54)
[2019-03-18 11:18] VITALS: BP 158/71
[2019-03-18] MEDS ORDERED: CAPSAICIN 0.025% CR 60 GM TOP PRN (12:45)
[2019-03-18 16:00] VITALS: BP 153/79
--- NOTE | 2019-03-18 18:07 | IPNPDOC ---
Date Seen The patient was seen on 03/18/19. Progress Note SUBJECTIVE: Patient complains of multiple joint pains including his b/l shoulders and low back. Requested capsaicin cream and adjustment of his pain meds. Requested to be discharged soon. INR still elevated but trending down. OBJECTIVE PHYSICAL EXAMINATION: VITAL SIGNS: Please see below. General: Mild to moderate distress, Alert Eyes: Normal sclera, EOMI HENT: Atraumatic MSK: b/l shoulder tenderness Cardiovascular: Normal rate, normal rhythm. Pulmonary: Clear to auscultation b/l, no wheezing GI: Soft, nontender, nondistended Skin: Warm and dry Neuro: CN grossly intact. No focal deficits. Strengths equal b/l. LABORATORY DATA, IMAGING STUDIES, MICROBIOLOGY: Please see below. DVT prophylaxis ordered?: ASSESSMENT AND PLAN: 1. MSSA bacteremia - Abx changed to Nafcillin 2g IV q4 per ID. - MRI lumbar spine negative for epidural abscess or discitis. ECHO shows no evidence of vegetations. - PICC line inserted, plan for c/w abx until 03/27. 2. Hypoxia - resolved. 3. DM - Levemir 25 units HS AM hypoglycemia. Change to 20 units QHS. - Humulin 70/30 8 units AC with sliding scale. 4. HTN - c/w lisinopril. 5. Peripheral neuropathy - c/w lyrica 6. hx TIA - on warfarin for CVA ppx. - On hold at this time due to supratherapeutic INR. - c/w daily checks and resume when appropriate. 7. Liver cirrhosis/portal HTN/hx Hep C - monitor. - on Lactulose BID as outpatient, continue. DISPOSITION: Home with care? To discuss with CM. VS, I&O, 24H, Shavon Vital Signs/I&O Vital Signs Date Time Temp Pulse Resp B/P (MAP) Pulse Ox O2 Delivery O2 Flow Rate FiO2 03/18/19 16:00 98.2 77 18 153/79 (103) 95 Room Air 03/17/19 08:15 2 I&O- Last 24 Hours up to 6 AM 03/18/19 06:00 Intake Total 2130 ml Output Total 2025 ml Balance 105 ml Laboratory Data 24H LABS Laboratory Tests 2 03/17/19 20:47: Bedside Glucose (Misc Panel) 167H 03/18/19 05:45: Nucleated Red Blood Cells % (auto) 0.0, Prothrombin Time 27.5H, Prothromb Time International Ratio 2.57, Anion Gap 6L, Glomerular Filtration Rate > 60.0, Calcium Level 7.5L 03/18/19 12:43: Bedside Glucose (Misc Panel) 309H 03/18/19 16:53: Bedside Glucose (Misc Panel) 299H CBC/BMP Laboratory Tests 03/18/19 05:45 Microbiology Microbiology 03/13/19 Blood Culture - Final, Complete NO GROWTH AFTER 5 DAYS 03/12/19 Blood Culture - Final, Complete NO GROWTH AFTER 5 DAYS 03/12/19 Blood Culture - Final, Complete Staphylococcus Aureus 03/11/19 Blood Culture - Final, Complete Staphylococcus Aureus 03/11/19 Urine Culture - Final, Complete 03/11/19 Blood Culture - Final, Complete Staphylococcus Aureus HANNA TORRES MD Mar 18, 2019 18:07
[2019-03-18 20:00] VITALS: BP 160/68
--- NOTE | 2019-03-18 20:15 | IPN ---
DATE: 03/18/2019 The patient was today in followup on Staphylococcus (staph) aureus bacteremia. He continues complaining of bilateral shoulder pain and low back pain. These have not increased. He requested some capsaicin cream and pain medication. There was some [facility] had concerns because the patient had been on chronic oxycodone treatment for many years when he moved to [place], and they discussed with him that his narcotic use was excessive. He stated that if his pain medications were discontinued that he could shoot up some heroin. This made the [facility] concerned about his discharge home with a peripherally inserted central catheter (PICC) line and IV antibiotic. There was also concern by his nurse practitioner, who is a primary care provider at the [facility], that he was noncompliant with his diabetes and that was uncontrolled. On physical exam, vital signs are stable. Temperature is 98.2, pulse 77, respirations 18, blood pressure 153/79, oxygen saturation (O2 sat) 95% on room air. Heart: Normal S1, S2 with a holosystolic ejection murmur 2/6, unchanged. Lungs are clear. No wheezes, rales or rhonchi. Abdomen: Soft, nontender. No hepatosplenomegaly. Extremities: +2 pitting edema of both hands, +1 pitting edema of the lower extremities. Upper extremities have multiple ecchymoses. Echocardiogram, transesophageal, was reviewed showed trace aortic insufficiency, tricuspid insufficiency and mild mitral insufficiency. LABORATORY: White count 8.3, hemoglobin 10.5, hematocrit 31.7, platelets 173. Sodium 138, potassium 3.7, chloride 107, bicarbonate 25, BUN 8, creatinine 1.04, glucose 63, calcium 7.5, CRP 4.56, down from 10.3, CPK 42. Blood cultures negative on 03/12/2019 at 2043 hours and 03/13/2019. IMPRESSION: 1. Methicillin-sensitive Staphylococcus aureus (MSSA) bacteremia, source unclear. The patient has documented blood cultures on 03/13/2019. He is currently on IV nafcillin 2 grams every 4 hours for MSSA bacteremia, doing well. Since he has no source of infection and no artificial joints or prosthetic valves, he will be treated with a 2-week course of IV vancomycin from negative cultures for presumptive uncomplicated staph aureus bacteremia. End of therapy will be 03/27/2019. 2. Chronic degenerative disc disease without evidence of epidural abscess or discitis. If his pain persists, may consider repeating an MRI as an outpatient. 3. 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 His hepatitis C RNA per the [facility] was undetectable in February. PLAN: Continue IV nafcillin 2 grams every 4 hours. If the patient cannot be discharged home with home IV antibiotics, this has to come from the [facility] as that is his only insurance. He may have IV daptomycin at the infusion unit once a day. The concern is that he has a history of narcotic dependence, but never had a history of IV drug abuse and that is why there was some concern about their compliance. They are understanding of IV antibiotics and whether they will be able to do that at home. If he gets discharged with daptomycin and the OR approves that discharge plan, then he will need a dose of 500 mg of daptomycin daily until 03/27/2019. Repeat complete blood count (CBC), C-reactive protein (CRP), erythrocyte sedimentation rate (ESR) in the morning
[2019-03-18] MEDS: LEVEMIR (INSULIN DETEMIR) 1 UNITS/0.01ML SC SCH (21:40)
[2019-03-19] VITALS (7 sets, daily range): BP systolic 120–172; BP diastolic 58–79
[2019-03-19] MEDS: NAFCILLIN SOD 2 GM in D5W MINI-BAG PLUS 50 ML IV SCH ×6 (01:17→20:40)
[2019-03-19 06:15] LABS: INR 1.88; PROTHROMBIN TIME 21.4 SECONDS (11.8-14.0)
[2019-03-19] MEDS: SODIUM CHLORIDE 0.9% INJ 10 ML SYR IV SCH ×2 (06:24→18:51)
[2019-03-19] MEDS: HumaLOG INSULIN (NovoLOG) PER UNIT SC SCH ×4 (07:30→20:01)
[2019-03-19] MEDS: HumuLIN (NovoLIN)70/30 INSULIN INJ PER UNIT SC SCH ×3 (09:11→18:50)
[2019-03-19] MEDS: LACTULOSE 20 GM/30 ML SYRUP UD PO SCH ×2 (09:11→20:41)
[2019-03-19] MEDS: PREGABALIN 75 MG CAP(LYRICA) PO SCH ×2 (09:12→20:41)
[2019-03-19] MEDS: lisinopriL 10 MG TAB PO SCH (09:12)
[2019-03-19] MEDS: oxyCODONE 5MG TAB PO PRN ×3 (09:23→20:41)
[2019-03-19] MEDS: ACETAMINOPHEN TAB 650MG DOSE (2X325MG) PO PRN (12:10)
[2019-03-19] MEDS ORDERED: LACTULOSE 20 GM/30 ML SYRUP UD PO PRN (14:30)
[2019-03-19] MEDS ORDERED: WARFARIN SOD 1 MG TAB PO ONE (17:00)
[2019-03-19] MEDS: WARFARIN SOD 3 MG TAB PO SCH (17:51)
--- NOTE | 2019-03-19 19:44 | IPNPDOC ---
Date Seen The patient was seen on 03/19/19. Progress Note SUBJECTIVE: Patient continues to be irritated and requests to go home. Unable to sort of infusion services for discharge at this time. Mental status seem to be slightly altered, ammonia elevated, lactulose dose increased. OBJECTIVE PHYSICAL EXAMINATION: VITAL SIGNS: Please see below. General: Mild distress, Alert Eyes: Normal sclera, EOMI HENT: Atraumatic MSK: b/l shoulder tenderness Cardiovascular: Normal rate, normal rhythm. Pulmonary: Clear to auscultation b/l, no wheezing GI: Soft, nontender, nondistended Skin: Warm and dry Neuro: CN grossly intact. No focal deficits. Strengths equal b/l. LABORATORY DATA, IMAGING STUDIES, MICROBIOLOGY: Please see below. DVT prophylaxis ordered?: ASSESSMENT AND PLAN: 1. MSSA bacteremia - Abx changed to Nafcillin 2g IV q4 per ID. - MRI lumbar spine negative for epidural abscess or discitis. ECHO shows no evidence of vegetations. - PICC line inserted, plan for c/w abx until 03/27. - Difficulty setting up infusion services. Consider switching to Daptomycin daily if that is easier to set up. 2. Hypoxia - resolved. 3. DM - Levemir 25 units HS AM hypoglycemia. Change to 20 units QHS. - Humulin 70/30 8 units AC with sliding scale. 4. HTN - c/w lisinopril. 5. Peripheral neuropathy - c/w lyrica 6. hx TIA - on warfarin for CVA ppx. - On hold initially due to supratherapeutic INR. - resumed at lower dose. 3 mg daily instead of 4mg daily for 6 days and 3mg once weekly. 7. Liver cirrhosis/portal HTN/hx Hep C - Elevated ammonia, restarted on lactulose. -titrate to 2-3 bowel movements a day. - Monitor. DISPOSITION: Home care. Trying to set up home infusion vs. outpatient infusion. VS, I&O, 24H, Fishbone Vital Signs/I&O Vital Signs Date Time Temp Pulse Resp B/P (MAP) Pulse Ox O2 Delivery O2 Flow Rate FiO2 03/19/19 17:20 20 Room Air 03/19/19 16:00 97.3 73 149/67 (94) 94 03/19/19 04:00 2.0 I&O- Last 24 Hours up to 6 AM 03/19/19 06:00 Intake Total 1830 ml Output Total 2470 ml Balance -640 ml Laboratory Data 24H LABS Laboratory Tests 2 03/18/19 21:20: Bedside Glucose (Misc Panel) 247H 03/19/19 05:36: Erythrocyte Sedimentation Rate 60H, Prothrombin Time 21.4H, Prothromb Time International Ratio 1.88, C-Reactive Protein, Quantitative 3.70H 03/19/19 07:46: Bedside Glucose (Misc Panel) 60L 03/19/19 08:33: Bedside Glucose (Misc Panel) 123H 03/19/19 12:13: Bedside Glucose (Misc Panel) 122H 03/19/19 14:53: Ammonia 72H 03/19/19 17:28: Bedside Glucose (Misc Panel) 183H Microbiology Microbiology 03/13/19 Blood Culture - Final, Complete NO GROWTH AFTER 5 DAYS 03/12/19 Blood Culture - Final, Complete NO GROWTH AFTER 5 DAYS 03/12/19 Blood Culture - Final, Complete Staphylococcus Aureus 03/11/19 Blood Culture - Final, Complete Staphylococcus Aureus 03/11/19 Urine Culture - Final, Complete 03/11/19 Blood Culture - Final, Complete Staphylococcus Aureus HANNA TORRES MD Mar 19, 2019 19:44
[2019-03-19] MEDS: LEVEMIR (INSULIN DETEMIR) 1 UNITS/0.01ML SC SCH (20:41)
[2019-03-19] MEDS: SODIUM CHLORIDE 0.9% INJ 10 ML SYR IV PRN (22:10)
[2019-03-20] MEDS: NAFCILLIN SOD 2 GM in D5W MINI-BAG PLUS 50 ML IV SCH ×6 (00:02→21:15)
[2019-03-20] MEDS: ALBUTEROL SULFATE 2.5 MG/0.5 ML INH NEB SOLN NEB PRN (02:15)
[2019-03-20 02:41] VITALS: BP 157/72
[2019-03-20] MEDS: ACETAMINOPHEN TAB 650MG DOSE (2X325MG) PO PRN ×2 (02:46→09:03)
[2019-03-20 03:13] LABS: HEMATOCRIT 30.1 % (42.0-52.0); HEMOGLOBIN 9.7 g/dl (13.5-17.5); MEAN CORPUSCULAR HEMOGLOBIN 31.5 pg (27.0-33.0); MEAN CORPUSCULAR HGB CONC 32.2 g/dl (32.0-36.5); MEAN CORPUSCULAR VOLUME 97.7 fl (80.0-96.0); PLATELET COUNT, AUTOMATED 169 10^3/uL (150-450); RED BLOOD COUNT 3.08 10^6/uL (4.30-6.10); WHITE BLOOD COUNT 7.3 10^3/uL (4.0-10.0)
[2019-03-20 03:24] LABS: INR 1.72; PROTHROMBIN TIME 19.9 SECONDS (11.8-14.0)
[2019-03-20 04:03] LABS: BLOOD UREA NITROGEN 6 MG/DL (7-18); CALCIUM LEVEL 7.1 MG/DL (8.8-10.2); CARBON DIOXIDE LEVEL 23 MEQ/L (21-32); CHLORIDE LEVEL 115 MEQ/L (98-107); CPK CREATINE PHOSPHOKINASE 45 U/L (39-308); CREATININE FOR GFR 0.92 MG/DL (0.70-1.30); GLOMERULAR FILTRATION RATE > 60.0 (>49); GLUCOSE, FASTING 61 MG/DL (70-100); MB/CK RELATIVE INDEX 2.22 (< OR =4); POTASSIUM SERUM 3.7 MEQ/L (3.5-5.1); SODIUM LEVEL 145 MEQ/L (136-145); TROPONIN I 0.17 NG/ML (< 0.10)
[2019-03-20 06:11] VITALS: BP 159/83
[2019-03-20] MEDS: SODIUM CHLORIDE 0.9% INJ 10 ML SYR IV SCH ×2 (06:29→17:16)
[2019-03-20] MEDS: HumaLOG INSULIN (NovoLOG) PER UNIT SC SCH ×4 (07:23→21:00)
[2019-03-20] MEDS: HumuLIN (NovoLIN)70/30 INSULIN INJ PER UNIT SC SCH ×3 (07:30→17:14)
[2019-03-20 08:07] VITALS: BP 156/75
[2019-03-20] MEDS: PREGABALIN 75 MG CAP(LYRICA) PO SCH ×2 (08:20→21:16)
[2019-03-20] MEDS: lisinopriL 10 MG TAB PO SCH (08:22)
[2019-03-20] MEDS: LACTULOSE 20 GM/30 ML SYRUP UD PO SCH ×2 (08:22→21:29)
[2019-03-20] MEDS: oxyCODONE 5MG TAB PO SCH ×2 (08:22→21:17)
[2019-03-20 09:33] LABS: CK-MB VALUE MASS 1.2 NG/ML (<3.6); MB/CK RELATIVE INDEX 3.16 (< OR =4); TROPONIN I 0.16 NG/ML (< 0.10)
--- NOTE | 2019-03-20 12:54 | IPNPDOC ---
Date Seen The patient was seen on 03/20/19. Progress Note SUBJECTIVE: Patient reported had an episode of chest pain overnight that had resolved. He stated that he felt SOB at that time although he gets the same feeling from time to time chronically. EKG shows TWI in III, V2, V3. Troponin .17->,16->.16 Appear more alert today, states he feels better than yesterday. OBJECTIVE PHYSICAL EXAMINATION: VITAL SIGNS: Please see below. General: Alert, generalized weakness Eyes: Normal sclera, EOMI HENT: Atraumatic MSK: b/l shoulder tenderness Cardiovascular: Normal rate, normal rhythm. Pulmonary: Clear to auscultation b/l, no wheezing GI: Soft, nontender, nondistended Skin: Warm and dry Neuro: CN grossly intact. No focal deficits. Strengths equal b/l. LABORATORY DATA, IMAGING STUDIES, MICROBIOLOGY: Please see below. DVT prophylaxis ordered?: ASSESSMENT AND PLAN: 1. MSSA bacteremia - Abx changed to Nafcillin 2g IV q4 per ID. - MRI lumbar spine negative for epidural abscess or discitis. ECHO shows no evidence of vegetations. - PICC line inserted, plan for c/w abx until 03/27. - Difficulty setting up infusion services. Consider switching to Daptomycin daily if patient able to be set up to come in for infusions. 2. Hypoxia w/ SOB - Intermittent use of oxygen.. D-dimer ordered. Consider CT angio to r/o PE with elevated. - On warfarin but INR subtherapeutic for past 2 days. 3. DM - Levemir 25 units HS AM hypoglycemia. Change to 20 units QHS. - Humulin 70/30 8 units AC with sliding scale. 4. HTN - c/w lisinopril. 5. Peripheral neuropathy - c/w lyrica 6. hx TIA - on warfarin for CVA ppx. - On hold initially due to supratherapeutic INR. - resumed at lower dose. 3 mg daily instead of 4mg daily for 6 days and 3mg once weekly. 7. Liver cirrhosis/portal HTN/hx Hep C - Elevated ammonia, restarted on lactulose. - titrate to 2-3 bowel movements a day. - Monitor. 8. Prolong Qtc - Repeat EKG shows improvement. - Monitor. 9. Elevated troponin - Had trended down with resolution of chest pain. - EKG with TWI III, V2 and V3. Old EKG with extensive artifact, uncertain if this is all new. - Discussed with cardiology Dr. Friedman, recommend continue follow up outpatient. DISPOSITION: Home care. Trying to set up home infusion vs. outpatient infusion. VS, I&O, 24H, Fishbone Vital Signs/I&O Vital Signs Date Time Temp Pulse Resp B/P (MAP) Pulse Ox O2 Delivery O2 Flow Rate FiO2 03/20/19 09:04 18 Room Air 03/20/19 08:22 2.0 03/20/19 08:22 156/75 03/20/19 08:07 98.6 74 97 I&O- Last 24 Hours up to 6 AM 03/20/19 06:00 Intake Total 2540 ml Output Total 3450 ml Balance -910 ml Laboratory Data 24H LABS Laboratory Tests 2 03/19/19 14:53: Ammonia 72H 03/19/19 17:28: Bedside Glucose (Misc Panel) 183H 03/19/19 19:58: Bedside Glucose (Misc Panel) 145H 03/20/19 03:06: Nucleated Red Blood Cells % (auto) 0.0, Prothrombin Time 19.9H, Prothromb Time International Ratio 1.72, Anion Gap 7L, Glomerular Filtration Rate > 60.0, Calcium Level 7.1L, Total Creatine Kinase 45, Creatine Kinase MB 1.0, Creatine Kinase MB Relative Index 2.22, Troponin I 0.17H 03/20/19 05:10: Bedside Glucose (Misc Panel) 96 03/20/19 06:30: Troponin I 0.16H 03/20/19 08:44: Troponin I 0.16H, Total Creatine Kinase 38L, Creatine Kinase MB 1.2, Creatine Kinase MB Relative Index 3.16 03/20/19 12:11: Bedside Glucose (Misc Panel) 212H CBC/BMP Laboratory Tests 03/20/19 03:06 Microbiology Microbiology 03/13/19 Blood Culture - Final, Complete NO GROWTH AFTER 5 DAYS 03/12/19 Blood Culture - Final, Complete NO GROWTH AFTER 5 DAYS 03/12/19 Blood Culture - Final, Complete Staphylococcus Aureus 03/11/19 Blood Culture - Final, Complete Staphylococcus Aureus 03/11/19 Urine Culture - Final, Complete 03/11/19 Blood Culture - Final, Complete Staphylococcus Aureus HANNA TORRES MD Mar 20, 2019 12:54
[2019-03-20 13:43] VITALS: BP 163/75
--- NOTE | 2019-03-20 15:38 | IPNPDOC ---
Date Seen The patient was seen on 03/20/19. Progress Note SUBJECTIVE: Patient is a 63-year-old male followed up for Staph Aureus bacteremia. Pt stated that overnight he experienced chest pain from 1 am to 4 am. He was unable to sleep due to the discomfort. When asked to describe he stated "it feels like a pressure on my chest and it makes it hard to breath." Pt's troponin levels were trended and were found to be 0.17, 0.16, and 0.16. Pain resolved when pt fell asleep and was resting when seen this afternoon. There remains concern of discharge on IV antibiotic by the [facility] They had concerns because the patient had been on chronic oxycodone treatment for many years when he moved to [place], and they discussed with him that his narcotic use was excessive. He stated that if his pain medications were discontinued that he could shoot up some heroin. [facility] with a peripherally inserted central catheter (PICC) line and IV antibiotic. There was also concern by his nurse practitioner, who is a primary care provider at the [facility], that he was noncompliant with his diabetes and that was uncontrolled. The infusion care for his antibiotic is still being sorted out. OBJECTIVE PHYSICAL EXAMINATION: Temp: 98.6 F. Pulse: 74. BP: 156/75 RR: 20. O2 sat: 97% on nasal cannula of 2L- pt was not previously utilizing oxygen and was not seen using oxygen at time of visit. VITAL SIGNS: Please see below. General: Mild distress, Alert Eyes: Normal sclera, EOMI HENT: Atraumatic MSK: b/l shoulder tenderness Cardiovascular: Normal rate, normal rhythm. Pulmonary: Clear to auscultation b/l, no wheezing GI: Soft, nontender, nondistended Skin: Warm and dry LABORATORY DATA, IMAGING STUDIES, MICROBIOLOGY: Please see below. ASSESSMENT AND PLAN: This is a 63-year-old male followed up for Staph Aureus bacteremia PROBLEMS: 1. Methicillin-sensitive Staphylococcus aureus (MSSA) bacteremia, source unclear. The patient has documented blood cultures on 03/13/2019 which displayed no growth after 5 days. He is currently on IV nafcillin 2 grams every 4 hours for MSSA bacteremia, doing well. Since he has no source of infection and no artificial joints or prosthetic valves, he will be treated with a 2-week course of IV vancomycin from negative cultures for presumptive uncomplicated staph aureus bacteremia. End of therapy will be 03/27/2019. 2. Chronic degenerative disc disease without evidence of epidural abscess or discitis. If his pain persists, may consider repeating an MRI as an outpatient. 3. 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 His hepatitis C RNA per the [facility] was undetectable in February. 4. Acute event of chest pain overnight. Order PA and Lateral chest x-rays to r/o septic emboli DISPOSITION: Continue IV nafcillin 2 grams every 4 hours. If the patient cannot be discharged home with home IV antibiotics, this has to come from the [facility] as that is his only insurance. He may have IV daptomycin at the infusion unit once a day. Repeat CBC, CRP, and ESR in the morning. Pt is currently waiting approval from the [facility] for in home infusion care to receive his antibiotic treatment that is set to end 03/27/19. Will discuss attending Dr Flaquita Faust as she is the Infectious Disease preceptor. GME ATTESTATION My faculty preceptor for this patient encounter was physically present during the encounter and was fully available. All aspects of the patient interview, examination, medical decision making process, and medical care plan development were reviewed and approved by the faculty preceptor. The faculty preceptor is aware and concurs with the plan as stated in the body of this note and will att est to such by his/her cosignature. VS, I&O, 24H, Fishbone Vital Signs/I&O Vital Signs Date Time Temp Pulse Resp B/P (MAP) Pulse Ox O2 Delivery O2 Flow Rate FiO2 03/20/19 13:43 98.5 74 20 163/75 (104) 97 Room Air 03/20/19 08:22 2.0 I&O- Last 24 Hours up to 6 AM 03/20/19 06:00 Intake Total 2540 ml Output Total 3450 ml Balance -910 ml Laboratory Data 24H LABS Laboratory Tests 2 03/19/19 17:28: Bedside Glucose (Misc Panel) 183H 03/19/19 19:58: Bedside Glucose (Misc Panel) 145H 03/20/19 03:06: Nucleated Red Blood Cells % (auto) 0.0, Prothrombin Time 19.9H, Prothromb Time International Ratio 1.72, Anion Gap 7L, Glomerular Filtration Rate > 60.0, Calcium Level 7.1L, Total Creatine Kinase 45, Creatine Kinase MB 1.0, Creatine Kinase MB Relative Index 2.22, Troponin I 0.17H 03/20/19 05:10: Bedside Glucose (Misc Panel) 96 03/20/19 06:30: Troponin I 0.16H 03/20/19 08:44: Troponin I 0.16H, Total Creatine Kinase 38L, Creatine Kinase MB 1.2, Creatine Kinase MB Relative Index 3.16 03/20/19 12:11: Bedside Glucose (Misc Panel) 212H 03/20/19 12:25: D-Dimer, Quantitative 1345.54H, Ammonia 91H CBC/BMP Laboratory Tests 03/20/19 03:06 Microbiology Microbiology 03/13/19 Blood Culture - Final, Complete NO GROWTH AFTER 5 DAYS 03/12/19 Blood Culture - Final, Complete NO GROWTH AFTER 5 DAYS 03/12/19 Blood Culture - Final, Complete Staphylococcus Aureus 03/11/19 Blood Culture - Final, Complete Staphylococcus Aureus 03/11/19 Urine Culture - Final, Complete 03/11/19 Blood Culture - Final, Complete Staphylococcus Aureus ANNJOANNAYOMI OMS-IV Mar 20, 2019 15:34
[2019-03-20] MEDS ORDERED: WARFARIN SOD 2 MG TAB PO ONE (17:00)
[2019-03-20] MEDS: WARFARIN SOD 3 MG TAB PO SCH (17:15)
[2019-03-20] MEDS ORDERED: ISOVUE-370 76% 100ML VIAL (Q9967) As Ordered ONE (17:30)
[2019-03-20] MEDS ORDERED: LORazepam 2 MG/ML VIAL (J2060) IM STA (17:36)
--- NOTE | 2019-03-20 20:15 | REPVR ---
PROCEDURE INFORMATION: Exam: CT Angiography Chest With Contrast Exam date and time: 03/20/2019 5:55 PM Age: 63 years old Clinical indication: Shortness of breath; Additional info: Evaluate for thromboembolism TECHNIQUE: Imaging protocol: Computed tomographic angiography of the chest with intravenous contrast. 3D rendering: MIP and/or 3D reconstructed images were created by the technologist. Radiation optimization: All CT scans at this facility use at least one of these dose optimization techniques: automated exposure control; mA and/or kV adjustment per patient size (includes targeted exams where dose is matched to clinical indication); or iterative reconstruction. Contrast material: ISOVUE 370; Contrast volume: 75 ml; Contrast route: IV; COMPARISON: CT ANGIO CHEST 12/19/2018 5:00 PM FINDINGS: Tubes, catheters and devices: Tip of central venous line which enters from the right located in the superior cavoatrial junction. Pulmonary arteries: There are no pulmonary emboli. Aorta: There is fusiform dilatation of the ascending thoracic aorta which measures 3.7 cm. maximally. There is no dissection or saccular component. Lungs: Unremarkable. No consolidation. No masses. Pleural space: Moderate pleural effusion and compressive atelectasis on the right. Small loculated pleural effusion on the left with compressive atelectasis at the lung base. Heart: Unremarkable. No cardiomegaly. No pericardial effusion. Lymph nodes: There is diffuse confluent and non confluent mediastinal lymphadenopathy including centrally calcified lymph nodes. Bilateral centrally calcified hilar lymphadenopathy. Bones/joints: Unremarkable. No acute fracture. Soft tissues: Unremarkable. IMPRESSION: 1. Moderate pleural effusion and compressive atelectasis on the right. Small loculated pleural effusion on the left with compressive atelectasis at the lung base. 2. There is fusiform dilatation of the ascending thoracic aorta which measures 3.7 cm. maximally. There is no dissection or saccular component. 3. There are no pulmonary emboli. 4. Calcified hilar and mediastinal lymph nodes, stable in comparison to the prior study. Differential diagnosis remains unchanged including granulomatous infection, sarcoidosis pneumoconioses and treated neoplasm, likely lymphoma. Clinical correlation is needed. Electronically signed by: Saul Villeda On 03/20/2019 20:14:59 PM
[2019-03-20 20:42] VITALS: BP 162/76
[2019-03-20] MEDS: LEVEMIR (INSULIN DETEMIR) 1 UNITS/0.01ML SC SCH (21:15)
[2019-03-20 22:30] VITALS: BP 169/79
[2019-03-21] VITALS (26 sets, daily range): BP systolic 137–176; BP diastolic 64–84; O2SAT 94–98
[2019-03-21] MEDS: NAFCILLIN SOD 2 GM in D5W MINI-BAG PLUS 50 ML IV SCH ×6 (00:52→21:19)
--- NOTE | 2019-03-21 01:30 | REP ---
Clinical: Chest pain. Technique: PA and lateral. Comparison: 03/11/2019. Findings: Significantly increased bilateral infiltrates (left greater than right) and pleural effusions (right greater than left) are appreciated. Mediastinum and cardiac silhouette are incompletely evaluated due to overlying opacities. Right-sided PICC line extends into the right atrium. No pneumothorax. Skeletal structures intact. Impression: Significantly increased bilateral infiltrates and pleural effusions. Electronically Signed by Francois Barroso MD 03/21/2019 01:21 A
[2019-03-21] MEDS: SODIUM CHLORIDE 0.9% INJ 10 ML SYR IV SCH ×2 (04:31→18:03)
[2019-03-21 05:39] LABS: INR 2.05; PROTHROMBIN TIME 22.9 SECONDS (11.8-14.0)
--- NOTE | 2019-03-21 07:38 | ECGEPIP ---
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
--- NOTE | 2019-03-21 07:39 | ECGEPIP ---
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
[2019-03-21] MEDS: HumaLOG INSULIN (NovoLOG) PER UNIT SC SCH ×4 (08:53→20:43)
[2019-03-21] MEDS: HumuLIN (NovoLIN)70/30 INSULIN INJ PER UNIT SC SCH ×3 (08:53→18:02)
[2019-03-21] MEDS: LACTULOSE 20 GM/30 ML SYRUP UD PO SCH ×6 (08:54→23:50)
[2019-03-21] MEDS: PREGABALIN 75 MG CAP(LYRICA) PO SCH ×2 (08:54→21:18)
[2019-03-21] MEDS: oxyCODONE 5MG TAB PO SCH ×2 (08:55→21:19)
[2019-03-21] MEDS: lisinopriL 10 MG TAB PO SCH (08:55)
[2019-03-21 09:39] LABS: C REACTIVE PROTEIN QUANTITATIV 2.48 MG/DL (0.00-0.30)
--- NOTE | 2019-03-21 11:42 | IPNPDOC ---
Date Seen The patient was seen on 03/21/19. Progress Note SUBJECTIVE: Patient is a 63-year-old male followed up for Staph Aureus bacteremia. Overnight pt had a chest x-ray and a CT angiogram of the chest performed which revealed significantly increased bilateral infiltrates and pleural effusions and moderate pleural effusion and compressive atelectasis on the right and small loculated pleural effusion on the left with compressive atelectasis at the lung base, respectively. Pt moved to PCU and was seen in bed this morning. Pt was upset that he had to remain in the hospital longer stating "I would be better at home, I am slowly dying here." Pt counseled on help being provided but remained disagreeable. later came and has been mediating the situation. Pt was coughing more than previously but states "I have had this cough for years," states coughing is nonproductive. Pt denies fever, chills, nausea, vomiting, SOB, abdominal pain, diarrhea, and hematuria. OBJECTIVE PHYSICAL EXAMINATION: Temp: 98.6 F. Pulse: 79. BP: 137/65 RR: 16. O2 sat: 97% on room air. VITAL SIGNS: Please see below. General: Mild distress, Alert MSK: b/l shoulder tenderness Cardiovascular: Normal rate, normal rhythm, +S1, S2. No murmurs, rubs, or gallops Pulmonary: Clear to auscultation b/l, no wheezing, rales, or rhonchi. GI: Soft, nontender, nondistended. Slight tenderness in RUQ Skin: Nontender, erythematous left dorsal forearm. Remainder of skin is warm, dry, perfusing well LABORATORY DATA, IMAGING STUDIES, MICROBIOLOGY: Please see below. CT Angiogram: IMPRESSION: 1. Moderate pleural effusion and compressive atelectasis on the right. Small loculated pleural effusion on the left with compressive atelectasis at the lung base. 2. There is fusiform dilatation of the ascending thoracic aorta which measures 3.7 cm. maximally. There is no dissection or saccular component. 3. There are no pulmonary emboli. 4. Calcified hilar and mediastinal lymph nodes, stable in comparison to the prior study. Differential diagnosis remains unchanged including granulomatous infection, sarcoidosis pneumoconioses and treated neoplasm, likely lymphoma. Clinical correlation is needed. Chest X-ray; PA and Lateral Impression: Significantly increased bilateral infiltrates and pleural effusions. ASSESSMENT AND PLAN: This is a 63-year-old male followed up for Staph Aureus bacteremia with acute changes in CT angiogram and chest xray indicative of pleural effusions. PROBLEMS: 1. Moderate pleural effusion and compressive atelectasis on the right. Small loculated pleural effusion on the left with compressive atelectasis at the lung base found on CT angiogram. IR was consulted and stated they would reevaluate pt for chest tube placement on Friday 03/24. Pt's INR levels was 2.05 and was decided there was a risk for bleeding. Consider starting diuretics 2. Methicillin-sensitive Staphylococcus aureus (MSSA) bacteremia, source unclear. The patient has documented blood cultures on 03/13/2019 which displayed no growth after 5 days. He is currently on IV nafcillin 2 grams every 4 hours for MSSA bacteremia, doing well. Since he has no source of infection and no artificial joints or prosthetic valves, he will be treated with a 2-week course of IV vancomycin from negative cultures for presumptive uncomplicated staph aureus bacteremia. End of therapy will be 03/27/2019. 3. Chronic degenerative disc disease without evidence of epidural abscess or discitis. If his pain persists, may consider repeating an MRI as an outpatient. 4. 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 His hepatitis C RNA per the [facility] was undetectable in February. DISPOSITION: Continue IV nafcillin 2 grams every 4 hours with treatment ending 03/27/2019 if pt is clinically stable. Pt will not be discharged to receive at home infusion of antibiotics due to presence of pleural effusion and concern of his primary being able to manage PICC line. Repeat CBC, CRP, and ESR in the morning. Patient ESR , CRP wBC improving doubt it is an empyema he is afebrile would suggest diuresis first Will discuss attending Dr Flaquita Faust as she is the Infectious Disease preceptor. VS, I&O, 24H, Fishbone Vital Signs/I&O Vital Signs Date Time Temp Pulse Resp B/P (MAP) Pulse Ox O2 Delivery O2 Flow Rate FiO2 03/21/19 09:25 18 Room Air 03/21/19 08:55 162/74 03/21/19 07:40 98.5 77 97 03/20/19 08:22 2.0 I&O- Last 24 Hours up to 6 AM 03/21/19 06:00 Intake Total 1640 ml Output Total 1050 ml Balance 590 ml Laboratory Data 24H LABS Laboratory Tests 2 03/20/19 12:11: Bedside Glucose (Misc Panel) 212H 03/20/19 12:25: D-Dimer, Quantitative 1345.54H, Ammonia 91H 03/20/19 16:55: Bedside Glucose (Misc Panel) 153H 03/20/19 20:38: Bedside Glucose (Misc Panel) 120H 03/21/19 04:57: Prothrombin Time 22.9H, Prothromb Time International Ratio 2.05, Ammonia 79H, C- Reactive Protein, Quantitative 2.48H, [id number]-Type Natriuretic Peptide 472H 03/21/19 07:16: Bedside Glucose (Misc Panel) 118H Microbiology Microbiology 03/13/19 Blood Culture - Final, Complete NO GROWTH AFTER 5 DAYS 03/12/19 Blood Culture - Final, Complete NO GROWTH AFTER 5 DAYS 03/12/19 Blood Culture - Final, Complete Staphylococcus Aureus 03/11/19 Blood Culture - Final, Complete Staphylococcus Aureus 03/11/19 Urine Culture - Final, Complete 03/11/19 Blood Culture - Final, Complete Staphylococcus Aureus YOMI AKBAR OMS-IV Mar 21, 2019 11:24 Flaquita Faust MD Mar 21, 2019 16:43
[2019-03-21] MEDS: SODIUM CHLORIDE 0.9% INJ 10 ML SYR IV PRN ×2 (14:32→19:16)
--- NOTE | 2019-03-21 18:12 | IPNPDOC ---
Date Seen The patient was seen on 03/21/19. Progress Note SUBJECTIVE: Patient agitated again wanting to go home. He denies any chest pain, SOB. CT chest last evening shows pleural effusion. Attempt to get thoracentesis perform but unable due to elevated INR on warfarin. Warfarin has been held with plan for re-assessment on Sunday. Has been on room air today. OBJECTIVE PHYSICAL EXAMINATION: VITAL SIGNS: Please see below. General: Alert, generalized weakness Eyes: Normal sclera, EOMI HENT: Atraumatic MSK: b/l shoulder tenderness Cardiovascular: Normal rate, normal rhythm. Pulmonary: Clear to auscultation b/l, no wheezing GI: Soft, nontender, nondistended Skin: Warm and dry Neuro: CN grossly intact. No focal deficits. Strengths equal b/l. LABORATORY DATA, IMAGING STUDIES, MICROBIOLOGY: Please see below. DVT prophylaxis ordered?: ASSESSMENT AND PLAN: 1. MSSA bacteremia - Abx changed to Nafcillin 2g IV q4. - MRI lumbar spine negative for epidural abscess or discitis. ECHO shows no evidence of vegetations. - PICC line inserted, plan for c/w abx until 03/27. - Difficulty setting up infusion services. Consider switching to Daptomycin daily if patient able to be set up to come in for infusions. 2. b/l pleural effusions. - Intermittent use of oxygen in setting of moderate pleural effusion likely 2/2 liver cirrhosis. - IR consulted for thoracentesis and chest tube but cannot perform due to elevated INR, to re-assess on Sunday. - Will diuresis in the meaning time. Monitor saturation and respiratory status. Hold warfarin. 3. DM - Levemir 25 units HS AM hypoglycemia. Change to 20 units QHS. - Humulin 70/30 8 units AC with sliding scale. 4. HTN - c/w lisinopril. 5. Peripheral neuropathy - c/w lyrica 6. hx TIA - on warfarin for CVA ppx. Held for thoracentesis. - Once resume, will resumed at lower dose. 3 mg daily instead of 4mg daily for 6 days and 3mg once weekly. Initially supratherapeutic >4. 7. Liver cirrhosis/portal HTN/hx Hep C - Elevated ammonia, restarted on lactulose. - titrate to 2-3 bowel movements a day. - Monitor. 8. Prolong Qtc - Repeat EKG shows improvement. - Monitor. 9. Elevated troponin - Had trended down with resolution of chest pain. - EKG with TWI III, V2 and V3. Old EKG with extensive artifact, uncertain if this is all new. - Discussed with cardiology Dr. Friedman, recommend continue follow up outpatient. DISPOSITION: Home care. Trying to set up home infusion vs. outpatient infusion. VS, I&O, 24H, Fishbone Vital Signs/I&O Vital Signs Date Time Temp Pulse Resp B/P (MAP) Pulse Ox O2 Delivery O2 Flow Rate FiO2 03/21/19 16:00 99.2 20 18 176/84 (114) 96 Room Air 03/20/19 08:22 2.0 I&O- Last 24 Hours up to 6 AM 03/21/19 06:00 Intake Total 1640 ml Output Total 1050 ml Balance 590 ml Laboratory Data 24H LABS Laboratory Tests 2 03/20/19 20:38: Bedside Glucose (Misc Panel) 120H 03/21/19 04:57: Prothrombin Time 22.9H, Prothromb Time International Ratio 2.05, Ammonia 79H, C-Reactive Protein, Quantitative 2.48H, [id number]-[id number]-B-Type Natriuretic Peptide 472H 03/21/19 07:16: Bedside Glucose (Misc Panel) 118H 03/21/19 11:28: Bedside Glucose (Misc Panel) 152H 03/21/19 17:15: Bedside Glucose (Misc Panel) 133H Microbiology Microbiology 03/13/19 Blood Culture - Final, Complete NO GROWTH AFTER 5 DAYS 03/12/19 Blood Culture - Final, Complete NO GROWTH AFTER 5 DAYS 03/12/19 Blood Culture - Final, Complete Staphylococcus Aureus 03/11/19 Blood Culture - Final, Complete Staphylococcus Aureus 03/11/19 Urine Culture - Final, Complete 03/11/19 Blood Culture - Final, Complete Staphylococcus Aureus HANNA TORRES MD Mar 21, 2019 18:12
[2019-03-21] MEDS: FUROSEMIDE 100 MG/10 ML VIAL (J1940) IV SCH (18:46)
[2019-03-21] MEDS: LEVEMIR (INSULIN DETEMIR) 1 UNITS/0.01ML SC SCH (21:19)
[2019-03-22] VITALS (27 sets, daily range): BP systolic 142–160; BP diastolic 67–76; O2SAT 92–97
[2019-03-22] MEDS: NAFCILLIN SOD 2 GM in D5W MINI-BAG PLUS 50 ML IV SCH ×6 (01:35→20:25)
[2019-03-22] MEDS: LACTULOSE 20 GM/30 ML SYRUP UD PO SCH ×7 (04:32→20:21)
[2019-03-22] MEDS: SODIUM CHLORIDE 0.9% INJ 10 ML SYR IV SCH ×2 (05:23→18:25)
[2019-03-22 05:27] LABS: HEMATOCRIT 27.7 % (42.0-52.0); HEMOGLOBIN 9.2 g/dl (13.5-17.5); MEAN CORPUSCULAR HEMOGLOBIN 32.4 pg (27.0-33.0); MEAN CORPUSCULAR HGB CONC 33.2 g/dl (32.0-36.5); MEAN CORPUSCULAR VOLUME 97.5 fl (80.0-96.0); PLATELET COUNT, AUTOMATED 159 10^3/uL (150-450); RED BLOOD COUNT 2.84 10^6/uL (4.30-6.10); WHITE BLOOD COUNT 5.7 10^3/uL (4.0-10.0)
[2019-03-22 05:39] LABS: INR 1.92; PROTHROMBIN TIME 21.7 SECONDS (11.8-14.0)
[2019-03-22 05:49] LABS: BLOOD UREA NITROGEN 5 MG/DL (7-18); CARBON DIOXIDE LEVEL 24 MEQ/L (21-32); CHLORIDE LEVEL 112 MEQ/L (98-107); CREATININE FOR GFR 1.11 MG/DL (0.70-1.30); GLOMERULAR FILTRATION RATE > 60.0 (>49); GLUCOSE, FASTING 115 MG/DL (70-100); POTASSIUM SERUM 3.4 MEQ/L (3.5-5.1); SODIUM LEVEL 141 MEQ/L (136-145)
[2019-03-22] MEDS: FUROSEMIDE 100 MG/10 ML VIAL (J1940) IV SCH (06:33)
[2019-03-22] MEDS ORDERED: POTASSIUM CHLORIDE 10 MEQ SR TABLET PO ONE (08:00)
[2019-03-22] MEDS: lisinopriL 10 MG TAB PO SCH (08:02)
[2019-03-22] MEDS: oxyCODONE 5MG TAB PO SCH ×2 (08:03→20:56)
[2019-03-22] MEDS: PREGABALIN 75 MG CAP(LYRICA) PO SCH ×2 (08:03→20:22)
[2019-03-22] MEDS: HumuLIN (NovoLIN)70/30 INSULIN INJ PER UNIT SC SCH ×3 (08:58→18:23)
[2019-03-22] MEDS: HumaLOG INSULIN (NovoLOG) PER UNIT SC SCH ×4 (08:59→20:25)
--- NOTE | 2019-03-22 12:02 | IPNPDOC ---
Date Seen The patient was seen on 03/22/19. Progress Note SUBJECTIVE: Patient still upset that he is in the hospital. No particular physical complaints otherwise. Denies any SOB. Saturating well on room air. OBJECTIVE PHYSICAL EXAMINATION: VITAL SIGNS: Please see below. General: Alert, generalized weakness Eyes: Normal sclera, EOMI HENT: Atraumatic MSK: b/l shoulder tenderness Cardiovascular: Normal rate, normal rhythm. Pulmonary: Clear to auscultation b/l, no wheezing GI: Soft, nontender, nondistended Skin: Warm and dry Neuro: CN grossly intact. No focal deficits. Strengths equal b/l. LABORATORY DATA, IMAGING STUDIES, MICROBIOLOGY: Please see below. DVT prophylaxis ordered?: ASSESSMENT AND PLAN: 1. MSSA bacteremia - Abx changed to Nafcillin 2g IV q4. - MRI lumbar spine negative for epidural abscess or discitis. ECHO shows no evidence of vegetations. - PICC line inserted, plan for c/w abx until 03/27. - Difficulty setting up infusion services. Consider switching to Daptomycin daily if patient able to be set up to come in for infusions. 2. b/l pleural effusions. - Intermittent use of oxygen in setting of moderate pleural effusion likely 2/2 liver cirrhosis. - IR consulted for thoracentesis and chest tube but cannot perform due to elevated INR, to re-assess on Sunday. - Will diuresis in the meaning time. Monitor saturation and respiratory status. Hold warfarin. 3. DM - Levemir 25 units HS AM hypoglycemia. Change to 20 units QHS. - Humulin 70/30 8 units AC with sliding scale. 4. HTN - c/w lisinopril. 5. Peripheral neuropathy - c/w lyrica 6. hx TIA - on warfarin for CVA ppx. Held for thoracentesis. - Once resume, will resumed at lower dose. 3 mg daily instead of 4mg daily for 6 days and 3mg once weekly. Initially supratherapeutic >4. 7. Liver cirrhosis/portal HTN/hx Hep C - Elevated ammonia, restarted on lactulose. - titrate to 2-3 bowel movements a day. - Monitor. 8. Prolong Qtc - Repeat EKG shows improvement. - Monitor. 9. Elevated troponin - Had trended down with resolution of chest pain. - EKG with TWI III, V2 and V3. Old EKG with extensive artifact, uncertain if this is all new. - Discussed with cardiology Dr. Friedman, recommend continue follow up outpatient. DISPOSITION: Home care. Trying to set up home infusion vs. outpatient infusion. VS, I&O, 24H, Fishbone Vital Signs/I&O Vital Signs Date Time Temp Pulse Resp B/P (MAP) Pulse Ox O2 Delivery O2 Flow Rate FiO2 03/22/19 08:33 16 03/22/19 08:02 142/74 03/22/19 07:52 98.5 78 93 Room Air 03/20/19 08:22 2.0 I&O- Last 24 Hours up to 6 AM 03/22/19 06:00 Intake Total 1710 ml Output Total 3700 ml Balance -1990 ml Laboratory Data 24H LABS Laboratory Tests 2 03/21/19 17:15: Bedside Glucose (Misc Panel) 133H 03/21/19 20:36: Bedside Glucose (Misc Panel) 157H 03/22/19 05:09: Nucleated Red Blood Cells % (auto) 0.0, Prothrombin Time 21.7H, Prothromb Time International Ratio 1.92, Anion Gap 5L, Glomerular Filtration Rate > 60.0, Calcium Level 8.0L 03/22/19 08:41: Ammonia 48H CBC/BMP Laboratory Tests 03/22/19 05:09 Microbiology Microbiology 03/13/19 Blood Culture - Final, Complete NO GROWTH AFTER 5 DAYS 03/12/19 Blood Culture - Final, Complete NO GROWTH AFTER 5 DAYS 03/12/19 Blood Culture - Final, Complete Staphylococcus Aureus HANNA TORRES MD Mar 22, 2019 12:02
[2019-03-22] MEDS: FUROSEMIDE 40 MG/4 ML VIAL (J1940) IV SCH (18:24)
[2019-03-22] MEDS: LEVEMIR (INSULIN DETEMIR) 1 UNITS/0.01ML SC SCH (20:26)
[2019-03-23] VITALS (14 sets, daily range): BP systolic 122–160; BP diastolic 60–70; O2SAT 94–96
[2019-03-23] MEDS: LACTULOSE 20 GM/30 ML SYRUP UD PO SCH ×5 (00:14→20:46)
[2019-03-23] MEDS: NAFCILLIN SOD 2 GM in D5W MINI-BAG PLUS 50 ML IV SCH ×6 (00:14→20:48)
[2019-03-23] MEDS: SODIUM CHLORIDE 0.9% INJ 10 ML SYR IV PRN (01:35)
[2019-03-23] MEDS: FUROSEMIDE 40 MG/4 ML VIAL (J1940) IV SCH (05:09)
[2019-03-23] MEDS: SODIUM CHLORIDE 0.9% INJ 10 ML SYR IV SCH ×2 (06:28→18:17)
[2019-03-23 06:50] LABS: INR 1.66; PROTHROMBIN TIME 19.4 SECONDS (11.8-14.0)
[2019-03-23] MEDS: HumaLOG INSULIN (NovoLOG) PER UNIT SC SCH ×4 (09:01→20:48)
[2019-03-23] MEDS: lisinopriL 10 MG TAB PO SCH (09:02)
[2019-03-23] MEDS: HumuLIN (NovoLIN)70/30 INSULIN INJ PER UNIT SC SCH ×3 (09:02→17:51)
[2019-03-23] MEDS: oxyCODONE 5MG TAB PO SCH ×2 (09:03→20:48)
[2019-03-23] MEDS: PREGABALIN 75 MG CAP(LYRICA) PO SCH ×2 (09:03→20:47)
--- NOTE | 2019-03-23 10:40 | IPNPDOC ---
Date Seen The patient was seen on 03/23/19. Progress Note SUBJECTIVE: Patient offered no complaints. Still irritated he is in the hospital. INR down to 1.6 today. Weaned off O2. Diuresed -4.8L yesterday. OBJECTIVE PHYSICAL EXAMINATION: VITAL SIGNS: Please see below. General: Alert, generalized weakness Eyes: Normal sclera, EOMI HENT: Atraumatic MSK: b/l shoulder tenderness Cardiovascular: Normal rate, normal rhythm. Pulmonary: Clear to auscultation b/l, no wheezing GI: Soft, nontender, nondistended Skin: Warm and dry Neuro: CN grossly intact. No focal deficits. Strengths equal b/l. LABORATORY DATA, IMAGING STUDIES, MICROBIOLOGY: Please see below. DVT prophylaxis ordered?: ASSESSMENT AND PLAN: 1. MSSA bacteremia - Abx changed to Nafcillin 2g IV q4. - MRI lumbar spine negative for epidural abscess or discitis. ECHO shows no evidence of vegetations. - PICC line inserted, plan for c/w abx until 03/27. - Difficulty setting up infusion services. Consider switching to Daptomycin daily if patient able to be set up to come in for infusions. 2. b/l pleural effusions. - Intermittent use of oxygen in setting of moderate pleural effusion likely 2/2 liver cirrhosis. - IR consulted for thoracentesis and chest tube but cannot perform due to elevated INR, to re-assess on Sunday. - Will diuresis in the meaning time. Monitor saturation and respiratory status. Hold warfarin. 3. DM - Levemir 25 units HS AM hypoglycemia. Change to 20 units QHS. - Humulin 70/30 8 units AC with sliding scale. 4. HTN - c/w lisinopril. 5. Peripheral neuropathy - c/w lyrica 6. hx TIA - on warfarin for CVA ppx. Held for thoracentesis. - Once resume, will resumed at lower dose. 3 mg daily instead of 4mg daily for 6 days and 3mg once weekly. Initially supratherapeutic >4. 7. Liver cirrhosis/portal HTN/hx Hep C - Elevated ammonia, restarted on lactulose. - titrate to 2-3 bowel movements a day. - Monitor. 8. Prolong Qtc - Repeat EKG shows improvement. - Monitor. 9. Elevated troponin - Had trended down with resolution of chest pain. - EKG with TWI III, V2 and V3. Old EKG with extensive artifact, uncertain if this is all new. - Discussed with cardiology Dr. Friedman, recommend continue follow up outpatient. DISPOSITION: Home care. Trying to set up home infusion vs. outpatient infusion. VS, I&O, 24H, Fishbone Vital Signs/I&O Vital Signs Date Time Temp Pulse Resp B/P (MAP) Pulse Ox O2 Delivery O2 Flow Rate FiO2 03/23/19 09:33 16 03/23/19 09:02 133/70 03/23/19 07:48 98.7 79 97 Room Air 03/20/19 08:22 2.0 I&O- Last 24 Hours up to 6 AM 03/23/19 06:00 Intake Total 1675 ml Output Total 6900 ml Balance -5225 ml Laboratory Data 24H LABS Laboratory Tests 2 03/22/19 12:38: Bedside Glucose (Misc Panel) 174H 03/22/19 16:54: Bedside Glucose (Misc Panel) 113 03/22/19 20:05: Bedside Glucose (Misc Panel) 148H 03/23/19 06:16: Prothrombin Time 19.4H, Prothromb Time International Ratio 1.66 03/23/19 07:48: Bedside Glucose (Misc Panel) 155H Microbiology Microbiology 03/13/19 Blood Culture - Final, Complete NO GROWTH AFTER 5 DAYS HANNA TORRES MD Mar 23, 2019 10:40
--- NOTE | 2019-03-23 11:35 | REP ---
CHEST X-RAY: TWO VIEWS. HISTORY: Reassess pleural effusion. Comparison chest x-ray, March 20, 2019. FINDINGS: There has been a marked improvement in the appearance of the chest x-ray. There is still some blunting of the lateral and posterior pleural angles indicating small amounts of residual pleural fluid. There is some fissural thickening. However, the amount of pleural effusion has markedly improved. Heart size is much better. Azygos vein is no longer dilated. Pulmonary vasculature is not cephalized or indistinct. Pulmonary edema pattern has improved. There is some linear fibrosis in the left base. A right-sided PICC line is noted. IMPRESSION: Dramatically improved radiographic findings consistent with improved CHF. Small residual bilateral pleural effusions. Electronically Signed by Jerry Jasmine MD 03/23/2019 02:29 P
--- NOTE | 2019-03-23 17:19 | ECGEPIP ---
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
[2019-03-23] MEDS: LEVEMIR (INSULIN DETEMIR) 1 UNITS/0.01ML SC SCH (20:48)
[2019-03-24] VITALS: BP 122/62
[2019-03-24] MEDS: NAFCILLIN SOD 2 GM in D5W MINI-BAG PLUS 50 ML IV SCH ×6 (01:00→21:08)
[2019-03-24 04:00] VITALS: BP 128/71
[2019-03-24] MEDS: SODIUM CHLORIDE 0.9% INJ 10 ML SYR IV SCH ×2 (04:58→18:25)
[2019-03-24 05:03] LABS: HEMOGLOBIN 9.2 g/dl (13.5-17.5); MEAN CORPUSCULAR HEMOGLOBIN 32.2 pg (27.0-33.0); MEAN CORPUSCULAR HGB CONC 32.9 g/dl (32.0-36.5); MEAN CORPUSCULAR VOLUME 97.9 fl (80.0-96.0); PLATELET COUNT, AUTOMATED 159 10^3/uL (150-450); RED BLOOD COUNT 2.86 10^6/uL (4.30-6.10); WHITE BLOOD COUNT 5.4 10^3/uL (4.0-10.0)
[2019-03-24 05:25] LABS: BLOOD UREA NITROGEN 7 MG/DL (7-18); CALCIUM LEVEL 7.6 MG/DL (8.8-10.2); CARBON DIOXIDE LEVEL 27 MEQ/L (21-32); CHLORIDE LEVEL 109 MEQ/L (98-107); CREATININE FOR GFR 1.17 MG/DL (0.70-1.30); GLOMERULAR FILTRATION RATE > 60.0 (>49); GLUCOSE, FASTING 174 MG/DL (70-100); POTASSIUM SERUM 3.5 MEQ/L (3.5-5.1); SODIUM LEVEL 141 MEQ/L (136-145)
[2019-03-24] MEDS: HumaLOG INSULIN (NovoLOG) PER UNIT SC SCH ×4 (07:30→21:00)
[2019-03-24] MEDS: HumuLIN (NovoLIN)70/30 INSULIN INJ PER UNIT SC SCH ×3 (07:30→18:24)
--- NOTE | 2019-03-24 07:53 | REP ---
Portable chest x-ray: Single view. History: Reassess pleural effusion. Comparison study: March 23, 2019. Findings: A right-sided PICC line is seen in place. There is slight blunting of the left lateral pleural angle. This is unchanged. There is some linear fibrosis versus plate-like atelectasis in the left base also unchanged. There is substantial improvement from the March 20, 2019 study. Interstitial markings however are slightly more prominent today than on yesterday's radiograph. Heart size is unchanged. Electronically Signed by Jerry Jasmine MD 03/24/2019 07:44 A
[2019-03-24 08:00] VITALS: BP 140/72
[2019-03-24 08:06] LABS: C REACTIVE PROTEIN QUANTITATIV 2.21 MG/DL (0.00-0.30)
[2019-03-24] MEDS: LACTULOSE 20 GM/30 ML SYRUP UD PO SCH ×2 (09:10→21:09)
[2019-03-24] MEDS: FUROSEMIDE 40 MG/4 ML VIAL (J1940) IV SCH (09:11)
[2019-03-24] MEDS: PREGABALIN 75 MG CAP(LYRICA) PO SCH ×2 (09:11→21:08)
[2019-03-24] MEDS: lisinopriL 10 MG TAB PO SCH (09:11)
[2019-03-24] MEDS: oxyCODONE 5MG TAB PO SCH ×2 (09:12→21:08)
[2019-03-24 12:00] VITALS: BP 136/60
--- NOTE | 2019-03-24 14:30 | IPNPDOC ---
Date Seen The patient was seen on 03/24/19. Progress Note SUBJECTIVE: Patient is a 63-year-old male followed up for Staph Aureus bacteremia. Overnight pt had a chest x-ray and a CT angiogram of the chest performed which revealed significantly increased bilateral infiltrates and pleural effusions and moderate pleural effusion and compressive atelectasis on the right and small loculated pleural effusion on the left with compressive atelectasis at the lung base, respectively. Pt moved to PCU and was seen in bed this morning. Pt was upset that he had to remain in the hospital longer stating "I would be better at home, I am slowly dying here." Pt counseled on help being provided but remained disagreeable. later came and has been mediating the situation. Pt was coughing more than previously but states "I have had this cough for years," states coughing is nonproductive. Pt denies fever, chills, nausea, vomiting, SOB, abdominal pain, diarrhea, and hematuria. OBJECTIVE PHYSICAL EXAMINATION: Temp: 98.7 F. Pulse: 80 BP: 136/60 RR: 16. O2 sat: 97% on room air. VITAL SIGNS: Please see below. General: Disgruntled about being in hospital, Alert MSK: b/l shoulder tenderness Cardiovascular: Normal rate, normal rhythm, +S1, S2. No murmurs, rubs, or gallops Pulmonary: Clear to auscultation b/l, no wheezing, rales, or rhonchi. GI: Soft, nontender, nondistended Skin: Nontender, erythematous left dorsal forearm. Remainder of skin is warm, dry, perfusing well LABORATORY DATA, IMAGING STUDIES, MICROBIOLOGY: Please see below. 03/20 CT Angiogram: IMPRESSION: 1. Moderate pleural effusion and compressive atelectasis on the right. Small loculated pleural effusion on the left with compressive atelectasis at the lung base. 2. There is fusiform dilatation of the ascending thoracic aorta which measures 3.7 cm. maximally. There is no dissection or saccular component. 3. There are no pulmonary emboli. 4. Calcified hilar and mediastinal lymph nodes, stable in comparison to the prior study. Differential diagnosis remains unchanged including granulomatous infection, sarcoidosis pneumoconioses and treated neoplasm, likely lymphoma. Clinical correlation is needed. 03/20 Chest X-ray; PA and Lateral Impression: Significantly increased bilateral infiltrates and pleural effusions. 1/19 Chest X-ray FINDINGS: There has been a marked improvement in the appearance of the chest x- ray. There is still some blunting of the lateral and posterior pleural angles indicating small amounts of residual pleural fluid. There is some fissural thickening. However, the amount of pleural effusion has markedly improved. Heart size is much better. Azygos vein is no longer dilated. Pulmonary vasculature is not cephalized or indistinct. Pulmonary edema pattern has improved. There is some linear fibrosis in the left base. A right-sided PICC line is noted. IMPRESSION: Dramatically improved radiographic findings consistent with improved CHF. Small residual bilateral pleural effusions. 03/24 Chest X-ray Findings: A right-sided PICC line is seen in place. There is slight blunting of the left lateral pleural angle. This is unchanged. There is some linear fibrosis versus plate-like atelectasis in the left base also unchanged. There is substantial improvement from the March 20, 2019 study. Interstitial markings however are slightly more prominent today than on yesterday's radiograph. Heart size is unchanged. ASSESSMENT AND PLAN: This is a 63-year-old male followed up for Staph Aureus bacteremia who had acute changes in CT angiogram and chest x-ray indicative of pleural effusions on 03/20 but has shown significant improvement over the weekend confirmed by chest x-ray. PROBLEMS: 1. Moderate pleural effusion and compressive atelectasis on the right. Small loculated pleural effusion on the left with compressive atelectasis at the lung base found on CT angiogram; diuresis with Lasix started 03/20 and on re- evaluation by chest x-ray performed today (03/24) showed substantial improvement. Consider continuing diuresis, possible consult with IR to determine if chest tube is necessary- INR was trended and is at 1.66 today. 2. Methicillin-sensitive Staphylococcus aureus (MSSA) bacteremia, source [facility]. The patient has documented blood cultures on 03/13/2019 which displayed no growth after 5 days. He is currently on IV nafcillin 2 grams every 4 hours for MSSA bacteremia, doing well. Since he has no source of infection and no artificial joints or prosthetic valves, he will be treated with a 2-week course of IV vancomycin from negative cultures for presumptive uncomplicated staph aureus bacteremia. End of therapy will be 03/27/2019. 3. Chronic degenerative disc disease without evidence of epidural abscess or discitis. If his pain persists, may consider repeating an MRI as an outpatient. 4. 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 His hepatitis C RNA per the [facility] was undetectable in February. DISPOSITION: Continue IV nafcillin 2 grams every 4 hours with treatment ending 03/27/2019 if pt is clinically stable. Repeat CBC, CRP, and ESR in the morning. Patient ESR, CRP, WBC are continuing to improve, it is doubtful there is an empyema as he remains afebrile- would suggest continuing diuresis Will discuss attending Dr Flaquita Faust as she is the Infectious Disease preceptor. VS, I&O, 24H, Fishbone Vital Signs/I&O Vital Signs Date Time Temp Pulse Resp B/P (MAP) Pulse Ox O2 Delivery O2 Flow Rate FiO2 03/24/19 12:00 98.7 80 16 136/60 (85) 97 Room Air 03/20/19 08:22 2.0 I&O- Last 24 Hours up to 6 AM 03/24/19 06:00 Intake Total 1520 ml Output Total 2950 ml Balance -1430 ml Laboratory Data 24H LABS Laboratory Tests 2 03/23/19 16:51: Bedside Glucose (Misc Panel) 134H 03/23/19 20:27: Bedside Glucose (Misc Panel) 205H 03/24/19 04:50: Nucleated Red Blood Cells % (auto) 0.0, Anion Gap 5L, Glomerular Filtration Rate > 60.0, Calcium Level 7.6L, C-Reactive Protein, Quantitative 2.21H 03/24/19 11:57: Bedside Glucose (Misc Panel) 276H CBC/BMP Laboratory Tests 03/24/19 04:50 YOMI AKBAR OMS-IV Mar 24, 2019 14:18
[2019-03-24 16:00] VITALS: BP 130/62
--- NOTE | 2019-03-24 16:13 | IPNPDOC ---
Date Seen The patient was seen on 03/24/19. Progress Note SUBJECTIVE: Patient says he feels fine, wants to go home. CXR shows significant improvement in pleural effusions. Thoracentesis cancelled. OBJECTIVE PHYSICAL EXAMINATION: VITAL SIGNS: Please see below. General: Alert, generalized weakness Eyes: Normal sclera, EOMI HENT: Atraumatic MSK: b/l shoulder tenderness Cardiovascular: Normal rate, normal rhythm. Pulmonary: Clear to auscultation b/l, no wheezing GI: Soft, nontender, nondistended Skin: Warm and dry Neuro: CN grossly intact. No focal deficits. Strengths equal b/l. LABORATORY DATA, IMAGING STUDIES, MICROBIOLOGY: Please see below. DVT prophylaxis ordered?: ASSESSMENT AND PLAN: 1. MSSA bacteremia - Abx changed to Nafcillin 2g IV q4. - MRI lumbar spine negative for epidural abscess or discitis. ECHO shows no evidence of vegetations. - PICC line inserted, plan for c/w abx until 03/27. - Difficulty setting up infusion services. Consider switching to Daptomycin daily if patient able to be set up to come in for infusions. 2. b/l pleural effusions. - Intermittent use of oxygen in setting of moderate pleural effusion likely 2/2 liver cirrhosis. - Initially planned for thoracentesis with chest tube placement. However, had improved significantly over the weekend with diuresis. - Procedure cancelled. Will maintain patient on diuresis to prevent fluid reaccumulation for now. - Monitor saturation and respiratory status. Restart warfarin. 3. DM - Levemir 25 units HS AM hypoglycemia. Change to 20 units QHS. - Humulin 70/30 8 units AC with sliding scale. 4. HTN - c/w lisinopril. 5. Peripheral neuropathy - c/w lyrica 6. hx TIA - on warfarin for CVA ppx. - Once resume, will resumed at lower dose. 3 mg daily instead of 4mg daily for 6 days and 3mg once weekly. Initially supratherapeutic >4. 7. Liver cirrhosis/portal HTN/hx Hep C - Elevated ammonia, restarted on lactulose. - titrate to 2-3 bowel movements a day. - Monitor. 8. Prolong Qtc - Repeat EKG shows improvement. - Monitor. 9. Elevated troponin - Had trended down with resolution of chest pain. - EKG with TWI III, V2 and V3. Old EKG with extensive artifact, uncertain if this is all new. - Discussed with cardiology Dr. Friedman, recommend continue follow up outpatient. DISPOSITION: Home care. Trying to set up home infusion vs. outpatient infusion. VS, I&O, 24H, Fishbone Vital Signs/I&O Vital Signs Date Time Temp Pulse Resp B/P (MAP) Pulse Ox O2 Delivery O2 Flow Rate FiO2 03/24/19 12:00 98.7 80 16 136/60 (85) 97 Room Air 03/20/19 08:22 2.0 I&O- Last 24 Hours up to 6 AM 03/24/19 06:00 Intake Total 1520 ml Output Total 2950 ml Balance -1430 ml Laboratory Data 24H LABS Laboratory Tests 2 03/23/19 16:51: Bedside Glucose (Misc Panel) 134H 03/23/19 20:27: Bedside Glucose (Misc Panel) 205H 03/24/19 04:50: Nucleated Red Blood Cells % (auto) 0.0, Anion Gap 5L, Glomerular Filtration Rate > 60.0, Calcium Level 7.6L, C-Reactive Protein, Quantitative 2.21H 03/24/19 11:57: Bedside Glucose (Misc Panel) 276H CBC/BMP Laboratory Tests 03/24/19 04:50 HANNA TORRES MD Mar 24, 2019 16:13
[2019-03-24 20:00] VITALS: BP 128/60
[2019-03-24] MEDS: ACETAMINOPHEN TAB 650MG DOSE (2X325MG) PO PRN (21:07)
[2019-03-24] MEDS: LEVEMIR (INSULIN DETEMIR) 1 UNITS/0.01ML SC SCH (21:09)
[2019-03-25] VITALS: BP 121/58
[2019-03-25] MEDS: NAFCILLIN SOD 2 GM in D5W MINI-BAG PLUS 50 ML IV SCH ×6 (00:50→20:43)
[2019-03-25 04:00] VITALS: BP 119/62
[2019-03-25] MEDS: SODIUM CHLORIDE 0.9% INJ 10 ML SYR IV SCH ×2 (05:35→18:29)
[2019-03-25 08:00] VITALS: BP 122/65
[2019-03-25] MEDS: HumaLOG INSULIN (NovoLOG) PER UNIT SC SCH ×4 (08:28→21:00)
[2019-03-25] MEDS: LACTULOSE 20 GM/30 ML SYRUP UD PO SCH ×2 (08:29→20:42)
[2019-03-25] MEDS: HumuLIN (NovoLIN)70/30 INSULIN INJ PER UNIT SC SCH ×3 (08:29→17:13)
[2019-03-25] MEDS: PREGABALIN 75 MG CAP(LYRICA) PO SCH ×2 (08:29→20:43)
[2019-03-25] MEDS: FUROSEMIDE 40 MG/4 ML VIAL (J1940) IV SCH (08:30)
[2019-03-25] MEDS: lisinopriL 10 MG TAB PO SCH (08:30)
[2019-03-25] MEDS: oxyCODONE 5MG TAB PO SCH ×2 (08:41→20:43)
[2019-03-25] MEDS: SODIUM CHLORIDE 0.9% INJ 10 ML SYR IV PRN ×2 (10:21→14:32)
[2019-03-25 12:00] VITALS: BP 111/60
--- NOTE | 2019-03-25 15:16 | IPNPDOC ---
Text Note Date of Service The patient was seen on 03/25/19. NOTE SUBJECTIVE: Patient says he feels fine, wants to go home. He is adament that he was told that he could go on sunday. No SOB, no cough, no abdominal pain , nausea or vomiting. COmplains of left hip pain. OBJECTIVE PHYSICAL EXAMINATION: VITAL SIGNS: Please see below. General: Alert, generalized weakness Eyes: Normal sclera, EOMI HENT: Atraumatic, moist mucous membranes .anicteric eyes. MSK: b/l shoulder tenderness Cardiovascular: Normal rate, normal rhythm. systolic murmur present. , no rub or gallop Pulmonary: Clear to auscultation b/l, no wheezing GI: Soft, nontender, nondistended Skin: Warm and dry Neuro: CN grossly intact. No focal deficits. Strengths equal b/l. LABORATORY DATA, IMAGING STUDIES, MICROBIOLOGY: Please see below. ASSESSMENT AND PLAN: MSSA bacteremia - On Nafcillin 2g IV q4. - MRI lumbar spine negative for epidural abscess or discitis. ECHO shows no evidence of vegetations. - PICC line inserted, plan for c/w abx until 03/27. b/l pleural effusions. - 2/2 liver cirrhosis with fluid overload. - now improving with diuresis DM - continue levemir and lispro, sugars controlled HTN - c/w lisinopril. Peripheral neuropathy - c/w lyrica hx TIA - on warfarin for CVA ppx. - Once resume, will resumed at lower dose. 3 mg daily instead of 4mg daily for 6 days and 3mg once weekly. Initially supratherapeutic >4. Liver cirrhosis/portal HTN/hx Hep C -stable, continue lactulose. VS,Fishbone, I+O VS, Fishbone, I+O Vital Signs Date Time Temp Pulse Resp B/P (MAP) Pulse Ox O2 Delivery O2 Flow Rate FiO2 03/25/19 12:00 99.1 79 18 111/60 (77) 97 Room Air 03/20/19 08:22 2.0 I&O- Last 24 Hours up to 6 AM 03/25/19 06:00 Intake Total 1220 ml Output Total 2825 ml Balance -1605 ml AMY WICK MD Mar 25, 2019 15:16
[2019-03-25 15:52] VITALS: BP 158/72
--- NOTE | 2019-03-25 17:48 | IPNPDOC ---
Date Seen The patient was seen on 03/25/19. Progress Note SUBJECTIVE: Patient is a 63-year-old male followed up for Staph Aureus bacteremia. Overnight there were no acute events. Pt has been complaining about being in the hospital stating "I am just waiting to here." Today he stated he was leaving tomorrow as "everyone has been saying I would leave Sunday." Pt has been told that his antibiotic regimen is set to end 03/27 but he insists he was told he could leave Sunday. Pt denies fever, chills, nausea, vomiting, SOB, abdominal pain, diarrhea, and hematuria. OBJECTIVE PHYSICAL EXAMINATION: Temp: 99.1 F. Pulse: 79 BP: 111/60 RR: 18. O2 sat: 97% on room air. VITAL SIGNS: Please see below. General: Disgruntled about being in hospital, Alert MSK: b/l shoulder tenderness Cardiovascular: Normal rate, normal rhythm, +S1, S2. No murmurs, rubs, or gallops Pulmonary: Clear to auscultation b/l, no wheezing, rales, or rhonchi. GI: Soft, nontender, nondistended Skin: Left forearm swelling significantly decreased with no erythema. Remainder of skin is warm, dry, perfusing well LABORATORY DATA, IMAGING STUDIES, MICROBIOLOGY: Please see below. 03/20 CT Angiogram: IMPRESSION: 1. Moderate pleural effusion and compressive atelectasis on the right. Small loculated pleural effusion on the left with compressive atelectasis at the lung base. 2. There is fusiform dilatation of the ascending thoracic aorta which measures 3.7 cm. maximally. There is no dissection or saccular component. 3. There are no pulmonary emboli. 4. Calcified hilar and mediastinal lymph nodes, stable in comparison to the prior study. Differential diagnosis remains unchanged including granulomatous infection, sarcoidosis pneumoconioses and treated neoplasm, likely lymphoma. Clinical correlation is needed. 03/20 Chest X-ray; PA and Lateral Impression: Significantly increased bilateral infiltrates and pleural effusions. 03/23 Chest X-ray FINDINGS: There has been a marked improvement in the appearance of the chest x- ray. There is still some blunting of the lateral and posterior pleural angles indicating small amounts of residual pleural fluid. There is some fissural thickening. However, the amount of pleural effusion has markedly improved. H eart size is much better. Azygos vein is no longer dilated. Pulmonary vasculature is not cephalized or indistinct. Pulmonary edema pattern has improved. There is some linear fibrosis in the left base. A right-sided PICC line is noted. IMPRESSION: Dramatically improved radiographic findings consistent with improved CHF. Small residual bilateral pleural effusions. 03/24 Chest X-ray Findings: A right-sided PICC line is seen in place. There is slight blunting of the left lateral pleural angle. This is unchanged. There is some linear fibrosis versus plate-like atelectasis in the left base also unchanged. There is substantial improvement from the March 20, 2019 study. Interstitial markings however are slightly more prominent today than on yesterday's radiograph. Heart size is unchanged. ASSESSMENT: This is a 63-year-old male followed up for Staph Aureus bacteremia who had acute changes in CT angiogram and chest x-ray indicative of pleural effusions on 03/20 but has shown significant improvement over the weekend confirmed by chest x-ray. PROBLEMS: 1. Moderate pleural effusion and compressive atelectasis on the right. Small loculated pleural effusion on the left with compressive atelectasis at the lung base found on CT angiogram; diuresis with Lasix started 03/20 and on re- evaluation by chest x-ray performed on 03/24 showed substantial improvement. Continue diuresis 2. Methicillin-sensitive Staphylococcus aureus (MSSA) bacteremia, source unclear. The patient has documented blood cultures on 03/13/2019 which displayed no growth after 5 days. He is currently on IV nafcillin 2 grams every 4 hours for MSSA bacteremia, doing well. Since he has no source of infection and no artificial joints or prosthetic valves, he will be treated with a 2-week course of IV vancomycin from negative cultures for presumptive uncomplicated staph aureus bacteremia. End of therapy will be 03/27/2019. 3. Chronic degenerative disc disease without evidence of epidural abscess or discitis. If his pain persists, may consider repeating an MRI as an outpatient. 4. 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 His hepatitis C RNA per the [facility] was undetectable in February. DISPOSITION: Continue IV nafcillin 2 grams every 4 hours with treatment ending 03/27/2019 if pt is clinically stable. Continue diuresis. [facility]. Will discuss attending Dr Flaquita Faust as she is the Infectious Disease preceptor. VS, I&O, 24H, Fishbone Vital Signs/I&O Vital Signs Date Time Temp Pulse Resp B/P (MAP) Pulse Ox O2 Delivery O2 Flow Rate FiO2 03/25/19 12:00 99.1 79 18 111/60 (77) 97 Room Air 03/20/19 08:22 2.0 I&O- Last 24 Hours up to 6 AM 03/25/19 06:00 Intake Total 1220 ml Output Total 2825 ml Balance -1605 ml Laboratory Data 24H LABS Laboratory Tests 2 03/24/19 17:24: Bedside Glucose (Misc Panel) 208H 03/24/19 20:54: Bedside Glucose (Misc Panel) 150H 03/25/19 07:26: Bedside Glucose (Misc Panel) 192H 03/25/19 11:29: Bedside Glucose (Misc Panel) 313H YOMI AKBAR OMS-IV Mar 25, 2019 14:41
[2019-03-25 20:00] VITALS: BP 140/64
[2019-03-25] MEDS: LEVEMIR (INSULIN DETEMIR) 1 UNITS/0.01ML SC SCH (20:43)
[2019-03-25] MEDS: ACETAMINOPHEN TAB 650MG DOSE (2X325MG) PO PRN (20:46)
[2019-03-26] VITALS: BP 132/63
[2019-03-26 04:00] VITALS: BP 135/68
[2019-03-26] MEDS: NAFCILLIN SOD 2 GM in D5W MINI-BAG PLUS 50 ML IV SCH ×7 (04:23→20:39)
[2019-03-26] MEDS: SODIUM CHLORIDE 0.9% INJ 10 ML SYR IV SCH ×2 (06:43→17:52)
[2019-03-26] MEDS: HumaLOG INSULIN (NovoLOG) PER UNIT SC SCH ×4 (07:30→20:20)
[2019-03-26 08:10] VITALS: BP 122/69
[2019-03-26] MEDS: LACTULOSE 20 GM/30 ML SYRUP UD PO SCH ×2 (08:59→20:42)
[2019-03-26] MEDS: HumuLIN (NovoLIN)70/30 INSULIN INJ PER UNIT SC SCH ×3 (08:59→17:51)
[2019-03-26] MEDS: PREGABALIN 75 MG CAP(LYRICA) PO SCH ×2 (09:00→20:39)
[2019-03-26] MEDS: oxyCODONE 5MG TAB PO SCH ×2 (09:00→20:40)
[2019-03-26] MEDS: FUROSEMIDE 40 MG/4 ML VIAL (J1940) IV SCH (09:01)
[2019-03-26] MEDS: lisinopriL 10 MG TAB PO SCH (09:01)
[2019-03-26 14:21] VITALS: BP 198/98
[2019-03-26 16:00] VITALS: BP 150/69
[2019-03-26 20:00] VITALS: BP 158/72
[2019-03-26] MEDS: LEVEMIR (INSULIN DETEMIR) 1 UNITS/0.01ML SC SCH (20:39)
--- NOTE | 2019-03-26 21:51 | IPNPDOC ---
Text Note Date of Service The patient was seen on 03/26/19. NOTE SUBJECTIVE This is a 63-year-old male who's been on IV antibiotic therapy with nafcillin due to MSSA bacteremia. He is adamantly wanted to go home OBJECTIVE Please see vital signs below Physical exam: HEENT: Neck is supple with no adenopathy or thyromegaly, patient is mildly ill kempt. Cardiovascular exam: Regular rate and rhythm with a normal S1 and S2. No appreciable murmur. Respiratory: Clear to auscultation. No appreciable cough. Abdomen: soft, flat, nondistended, nontender. Extremities: No focal edema or lesions Echocardiogram did not reveal vegetations or thrombi consistent with endocarditis. ASSESSMENT/PLAN: Mr. Padilla is a 63-year-old male with an MSSA bacteremia. He will complete therapy with nafcillin tomorrow. He is anxious to get home. We will review his overall care plan before his discharge anticipated for tomorrow. He will have completed IV antibiotic course and will not require more. VS,Fishbone, I+O VS, Fishbone, I+O Vital Signs Date Time Temp Pulse Resp B/P (MAP) Pulse Ox O2 Delivery O2 Flow Rate FiO2 03/26/19 20:40 18 03/26/19 20:00 98.9 82 158/72 (100) 98 Room Air 03/20/19 08:22 2.0 I&O- Last 24 Hours up to 6 AM 03/26/19 06:00 Intake Total 1054 ml Output Total 1750 ml Balance -696 ml TERRA WARD MD Mar 26, 2019 21:51
[2019-03-27] VITALS: BP 111/61
[2019-03-27] MEDS: NAFCILLIN SOD 2 GM in D5W MINI-BAG PLUS 50 ML IV SCH ×3 (00:41→09:02)
[2019-03-27 04:00] VITALS: BP 137/69
[2019-03-27] MEDS: SODIUM CHLORIDE 0.9% INJ 10 ML SYR IV SCH (04:58)
[2019-03-27] MEDS: HumaLOG INSULIN (NovoLOG) PER UNIT SC SCH (07:30)
[2019-03-27 08:00] VITALS: BP 128/72
[2019-03-27] MEDS: FUROSEMIDE 40 MG/4 ML VIAL (J1940) IV SCH (08:41)
[2019-03-27] MEDS: oxyCODONE 5MG TAB PO SCH (08:42)
[2019-03-27] MEDS: PREGABALIN 75 MG CAP(LYRICA) PO SCH (08:42)
[2019-03-27 08:43] VITALS: BP 128/64
[2019-03-27] MEDS: lisinopriL 10 MG TAB PO SCH (08:43)
[2019-03-27] MEDS: HumuLIN (NovoLIN)70/30 INSULIN INJ PER UNIT SC SCH (08:48)
[2019-03-27] MEDS: LACTULOSE 20 GM/30 ML SYRUP UD PO SCH (08:49)
[2019-03-27] MEDS ORDERED: INSULADS SC (08:52)
--- NOTE | 2019-03-27 21:02 | DS.PDOC ---
Discharge Summary General Date of Admission Mar 11, 2019 at 14:49 Date of Discharge 03/27/2019 Specialist/Consultants Involve: Flaquita Faust MD Discharge Summary PROCEDURES PERFORMED DURING STAY: [Echocardiogram, PICC line placement/removal]. ADMITTING DIAGNOSES: 1. [MSSA bacteremia]. DISCHARGE DIAGNOSES: 1. [MSSA bacteremia, liver cirrhosis, NIDDM, essential hypertension, neuropathy, CAD]. COMPLICATIONS/CHIEF COMPLAINT: FEVER. HISTORY OF PRESENT ILLNESS/HOSPITAL COURSE: [63 year old male with history of liver cirrhosis presented with UTI. Found to have bacteremia due to MSSA. Ruled out for endocarditis by echocardiogram. After consultation with ID service, PICC line placed and patient completed treatment course of IV nafcillin. Patient did not have other complications.]. DISCHARGE MEDICATIONS: Please see below. ALLERGIES: Please see below. PHYSICAL EXAMINATION ON DISCHARGE: VITAL SIGNS: Please see below. HEENT: Neck is supple with no adenopathy or thyromegaly, patient is mildly ill kempt. Cardiovascular exam: Regular rate and rhythm with a normal S1 and S2. No appreciable murmur. Respiratory: Clear to auscultation. No appreciable cough. Abdomen: soft, flat, nondistended, nontender. Extremities: No focal edema or lesions LABORATORY DATA: Please see below. IMAGING: PROGNOSIS: ACTIVITY: [As tolerated]. DIET: [As tolerated] DISCHARGE PLAN: [Patient stable for discharge to home. He will [facility] - 2 weeks.] DISPOSITION: Home, Self-Care. DISCHARGE INSTRUCTIONS: 1. . ITEMS TO FOLLOWUP ON ON OUTPATIENT: 1. . DISCHARGE CONDITION: [Stable]. TIME SPENT ON DISCHARGE: [35] minutes. Vital Signs/I&Os Vital Signs Date Time Temp Pulse Resp B/P (MAP) Pulse Ox O2 Delivery O2 Flow Rate FiO2 03/27/19 08:43 128/64 03/27/19 08:42 20 03/27/19 08:00 98.8 76 98 Room Air I&O- Last 24 Hours up to 6 AM 03/27/19 06:00 Intake Total 700 ml Output Total 3100 ml Balance -2400 ml Laboratory Data Labs 24H Laboratory Tests 2 03/27/19 07:46: Bedside Glucose (Misc Panel) 81 FSBS Laboratory Tests Test 03/27/19 07:46 Range/Units Bedside Glucose (Misc Panel) 81 80-115 MG/DL Discharge Medications Scheduled Insulin Glargine (Lantus) 100 Unit/1 Ml Vial, 20 UNITS SC QHS, (Reported) PATIENT'S S/O STATES SHE WOULD LIKE EDUCATION ON HOW TO USE THIS SO SHE CAN ASSIST THE PATIENT. Lactulose (Lactulose) 10 Gm/15 Ml Solution, 30 ML PO BID, (Reported) Lisinopril (Lisinopril) 20 Mg Tablet, 10 MG PO DAILY, (Reported) Metformin HCl (Metformin HCl) 1,000 Mg Tablet, 1,000 MG PO BID, (Reported) Pregabalin (Lyrica) 150 Mg Capsule, 150 MG PO BID, (Reported) Warfarin Sodium (Warfarin Sodium) 2 Mg Tablet, 4 MG PO 6XWK, (Reported) TAKEN Sun Warfarin Sodium (Warfarin Sodium) 2 Mg Tablet, 3 MG PO 1XWK, (Reported) TAKEN SUNDAY Scheduled PRN Capsaicin (Capsaicin) 0.025% Cream..g., 1 DOSE TOP BID PRN for PAIN, (Reported) APPLY TO AREAS OF PAIN Carboxymethylcellulose Sodium (Refresh Tears) 15 Ml Drops, 1 DROP OU TID PRN for DRY EYES, (Reported) Oxycodone HCl (Roxicodone) 5 Mg Tablet, 1 TAB PO Q4H PRN for PAIN, (Reported) Allergies Coded Allergies: gabapentin (Verified Adverse Reaction, Intermediate, nausea vomiting, 04/03/19) spironolactone (Verified Adverse Reaction, Unknown, gynecomastia, 12/19/18) TERRA WARD MD Mar 27, 2019 21:02
== END 2019-03-27 12:15 | disposition home or self-care (01) | DRG 872 ==
LOC: M ED 10:04 → EDBD 10:04 → M ED INP 14:49 → ENRESERVTM 15:29 → CANRESERV 15:29 → ENRESERVDT 15:29 → M MSPAV 16:15 → M PCU 23:51 → M MS5PR 03-20 13:35 → M PCU 03-20 21:58
PROVIDERS: ADMIT Internal Medicine; ATTEND Internal Medicine
PROC: 02HV33Z Insertion of Infusion Device into Superior Vena Cava, Percutaneous Approach (ICD-10-PCS; principal; 2019-03-17 07:30)
DX: R78.81 Bacteremia (principal); K76.6 Portal hypertension; J90 Pleural effusion, not elsewhere classified; A49.01 Methicillin susceptible Staphylococcus aureus infection, unspecified site; G89.29 Other chronic pain; M54.5 Low back pain; I10 Essential (primary) hypertension; E11.40 Type 2 diabetes mellitus with diabetic neuropathy, unspecified; R41.82 Altered mental status, unspecified; R29.6 Repeated falls; R32 Unspecified urinary incontinence; R30.0 Dysuria; Z79.4 Long term (current) use of insulin; Z79.84 Long term (current) use of oral hypoglycemic drugs; Z79.01 Long term (current) use of anticoagulants; Z88.8 Allergy status to other drugs, medicaments and biological substances; I25.10 Atherosclerotic heart disease of native coronary artery without angina pectoris; I25.2 Old myocardial infarction; Z87.891 Personal history of nicotine dependence; E11.65 Type 2 diabetes mellitus with hyperglycemia; D72.829 Elevated white blood cell count, unspecified; Z86.73 Personal history of transient ischemic attack (TIA), and cerebral infarction without residual deficits; K74.60 Unspecified cirrhosis of liver; R09.02 Hypoxemia; B18.2 Chronic viral hepatitis C

== ENCOUNTER 2019-04-03 09:49 | Inpatient (IN) | payer OTHER ==
[~2019-04-03] VITALS: Ht 175.3 cm; Wt 64.7 kg
[2019-04-03] MEDS: lisinopriL 10 MG TAB PO SCH (09:00)
[~2019-04-03 09:49] MED LIST changes: +LISI-538 PO; +WARF4TAB51 PO
--- NOTE | 2019-04-03 10:41 | REP ---
CT BRAIN WITHOUT IV CONTRAST: CT brain performed without IV contrast. Coronal and reconstruction images are performed. There is mild atrophy. There is no midline shift or mass effect. Hunt-white differentiation is well maintained. There is no acute intracranial hemorrhage or extra-axial fluid collection. No skull fracture is seen and I see no abnormal opacification of visualized paranasal sinuses. IMPRESSION: No acute abnormality is detected. Electronically Signed by Mike Hunt MD 04/04/2019 11:21 A
--- NOTE | 2019-04-03 10:43 | REP ---
CHEST, PORTABLE: AP portable views of the chest are performed. Comparison is made with a prior study 03/24/2019. There is no acute infiltrate. Lungs are clear. The cardiac silhouette appears somewhat magnified. Mediastinal silhouette is unchanged. IMPRESSION: No acute infiltrate. Electronically Signed by Mike Hunt MD 04/04/2019 11:21 A
[2019-04-03 10:44] LABS: VENOUS BASE EXCESS -5.4 (-2.0-2.0); VENOUS O2 SATURATION 97.9 % (60.0-80.0); VENOUS PARTIAL PRESSURE CO2 24.4 mmHg (38.0-50.0); VENOUS PARTIAL PRESSURE O2 98.9 mmHg (30.0-50.0); VENOUS PH 7.461 UNITS (7.330-7.430); VENOUS TOTAL CO2 17.8 MEQ/L (24.0-28.0)
[2019-04-03 10:52] LABS: BASO # 0.1 10^3/uL (0.0-0.2); EOS # 0.1 10^3/uL (0.0-0.5); EOS % 1.2 % (0.0-3.0); HEMATOCRIT 29.3 % (42.0-52.0); HEMOGLOBIN 10.2 g/dl (13.5-17.5); LYMPH # 1.5 10^3/uL (1.5-5.0); LYMPH % 22.9 % (24.0-44.0); MEAN CORPUSCULAR HEMOGLOBIN 33.7 pg (27.0-33.0); MEAN CORPUSCULAR HGB CONC 34.8 g/dl (32.0-36.5); MEAN CORPUSCULAR VOLUME 96.7 fl (80.0-96.0); MONO # 0.7 10^3/uL (0.0-0.8); MONO % 11.1 % (0.0-5.0); NEUTROPHILS # 4.2 10^3/uL (1.5-8.5); NEUTROPHILS % 63.5 % (36.0-66.0); PLATELET COUNT, AUTOMATED 169 10^3/uL (150-450); RED BLOOD COUNT 3.03 10^6/uL (4.30-6.10); WHITE BLOOD COUNT 6.7 10^3/uL (4.0-10.0)
[2019-04-03 11:23] LABS: ALBUMIN 2.4 GM/DL (3.2-5.2); ALT/SGPT 18 U/L (12-78); BILIRUBIN,TOTAL 2.4 MG/DL (0.2-1.0); BLOOD UREA NITROGEN 14 MG/DL (7-18); CALCIUM LEVEL 9.1 MG/DL (8.8-10.2); CARBON DIOXIDE LEVEL 21 MEQ/L (21-32); CHLORIDE LEVEL 114 MEQ/L (98-107); CK-MB VALUE MASS 1.4 NG/ML (<3.6); CPK CREATINE PHOSPHOKINASE 56 U/L (39-308); CREATININE FOR GFR 1.06 MG/DL (0.70-1.30); GLOMERULAR FILTRATION RATE > 60.0 (>49); GLUCOSE, FASTING 215 MG/DL (70-100); POTASSIUM SERUM 3.6 MEQ/L (3.5-5.1); SODIUM LEVEL 143 MEQ/L (136-145); TOTAL PROTEIN 7.8 GM/DL (6.4-8.2); TROPONIN I 0.19 NG/ML (< 0.10)
[2019-04-03 11:40] LABS: OSMOLALITY SERUM 307 MOSM/KG (280-301)
[2019-04-03] MEDS ORDERED: LACTULOSE 20 GM/30 ML SYRUP UD NG ONE (12:00)
[2019-04-03] MEDS ORDERED: INSULANT SC (12:04)
[2019-04-03] MEDS ORDERED: LACT10SO29 PO (12:04)
[2019-04-03] MEDS ORDERED: CAPSAICIN 0.025% CR 60 GM TOP PRN (13:00)
[2019-04-03] MEDS ORDERED: DEXTROSE 50% 50 ML SYRINGE IV PRN (13:15)
[2019-04-03] MEDS ORDERED: GLUCOSE 4 GM CHEW TABLET PO PRN (13:15)
[2019-04-03] MEDS ORDERED: GLUCAGON FOR INJ 1 MG VIAL (J1610) SC PRN (13:15)
--- NOTE | 2019-04-03 13:23 | HPEPDOC ---
[facility] Medical History & Physical Date of Admission Apr 03, 2019 Date of Service: Apr 03, 2019 Attending Physician: JOSH RICK MD History and Physical CHIEF COMPLAINT: Fatigue HISTORY OF PRESENT ILLNESS: [63-year-old male with past medical history of coronary artery disease, [place], diabetes mellitus, cirrhosis, hepatitis C and hypertension presents from home with severe lethargy. Patient is very lethargic, opens eyes to vocal/tactile stimuli but does not answer questions or follow any commands. Information obtained from significant other at bedside, patient was admitted recently for MSSA bacteremia, discharged home on the , was doing well up until 3 days ago when he stopped taking all of his medications. 2 days ago he became more lethargic, which continued and worsened to the point where she brought her in today. Patient has not taken any of his medications over the past 3 days. Significant other denies any fever or associated symptoms at home. Patient received a dose of lactulose in the ED. PAST MEDICAL HISTORY: 1. Coronary artery disease. 2. Hepatitis C. 3. Cirrhosis. 4. Hypertension 5. Diabetes mellitus PAST SURGICAL HISTORY: 1. Cholecystectomy. 2. , Appendectomy. SOCIAL HISTORY: Unable to obtain FAMILY HISTORY: Unable to obtain ALLERGIES: Please see below. REVIEW OF SYSTEMS: Unable to obtain HOME MEDICATIONS: Please see below. PHYSICAL EXAMINATION: VITAL SIGNS: Please see below. GENERAL: No distress HEENT: Dry mucous membranes NECK: Supple CARDIOVASCULAR EXAMINATION: S1, S2, no murmurs RESPIRATORY EXAMINATION: Clear to auscultation, no wheezing ABDOMINAL EXAMINATION: Soft, nontender, nondistended, positive bowel sounds EXTREMITIES: Moving all extremities SKIN: No rash NEUROLOGICAL EXAMINATION: Unable to assess PSYCHIATRIC EXAMINATION: Lethargic LABORATORY DATA: See below. IMAGING: CT head negative for acute pathology MICROBIOLOGY: Please see below. ASSESSMENT: 63-year-old male with past medical history of cirrhosis, hepatitis C, diabetes mellitus, coronary artery disease and hypertension is being admitted for hepatic encephalopathy. PLAN: 1. Hepatic encephalopathy. Ammonia level 142, has not taken lactulose for the past 3 days, lactulose 30 mL every 6 hours. Recently admitted for MSSA bacteremia, blood cultures pending, pro-calcitonin ordered, empiric Zosyn. 2. TIA. Continue home Coumadin for prophylaxis. INR pending 3. Diabetes mellitus. Decrease Levemir to 10 units at bedtime along with sliding scale insulin before meals and at bedtime. 4. Hypertension. Continue lisinopril DVT prophylaxis: Coumadin. GI prophylaxis: Not needed Vital Signs Vital Signs Date Time Temp Pulse Resp B/P (MAP) Pulse Ox O2 Delivery O2 Flow Rate FiO2 04/03/19 11:19 79 04/03/19 11:15 147/64 (91) 04/03/19 11:04 97 04/03/19 09:59 98.0 18 Room Air Laboratory Data Labs 24H Laboratory Tests 2 04/03/19 10:28: Immature Granulocyte % (Auto) 0.3, Neutrophils (%) (Auto) 63.5, Lymphocytes (%) (Auto) 22.9L, Monocytes (%) (Auto) 11.1H, Eosinophils (%) (Auto) 1.2, Basophils (%) (Auto) 1.0, Neutrophils # (Auto) 4.2, Lymphocytes # (Auto) 1.5, Monocytes # (Auto) 0.7, Eosinophils # (Auto) 0.1, Basophils # (Auto) 0.1, Nucleated Red Blood Cells % (auto) 0.0, Blood Gas Bicarbonate Standard 20.0, Venous Blood pH 7.461H, Venous Blood Partial Pressure CO2 24.4L, Venous Blood Partial Pressure O2 98.9H, Venous Blood Total Carbon Dioxide 17.8L, Venous Blood HCO3 17.0L, Venous Blood Oxygen Saturation 97.9H, Venous Blood Base Excess -5.4L, Anion Gap 8, Glomerular Filtration Rate > 60.0, Osmolality 307H, Calcium Level 9.1, Total Bilirubin 2.4H, Direct Bilirubin 1.0H, Aspartate Amino Transf (AST/SGOT) 25, Alanine Aminotransferase (ALT/SGPT) 18, Alkaline Phosphatase 75, Ammonia 142H, Total Creatine Kinase 56, Creatine Kinase MB 1.4, Creatine Kinase MB Relative Index 2.50, Troponin I 0.19H, Total Protein 7.8, Albumin 2.4L, Albumin/Globulin Ratio 0.44L, Thyroid Stimulating Hormone (TSH) 2.500 04/03/19 10:29: Lactic Acid Level 4.6*H CBC/BMP Laboratory Tests 04/03/19 10:28 Microbiology Microbiology 04/03/19 Blood Culture, Received Pending 04/03/19 Blood Culture, Received Pending Home Medications Scheduled Insulin Glargine (Lantus) 100 Unit/1 Ml Vial, 20 UNITS SC QHS PATIENT'S S/O STATES SHE WOULD LIKE EDUCATION ON HOW TO USE THIS SO SHE CAN ASSIST THE PATIENT. Lactulose (Lactulose) 10 Gm/15 Ml Solution, 30 ML PO BID Lisinopril (Lisinopril) 20 Mg Tablet, 10 MG PO DAILY Metformin HCl (Metformin HCl) 1,000 Mg Tablet, 1,000 MG PO BID Pregabalin (Lyrica) 150 Mg Capsule, 150 MG PO BID Warfarin Sodium (Warfarin Sodium) 2 Mg Tablet, 4 MG PO 6XWK TAKEN Sun Warfarin Sodium (Warfarin Sodium) 2 Mg Tablet, 3 MG PO 1XWK TAKEN SUNDAY Scheduled PRN Capsaicin (Capsaicin) 0.025% Cream..g., 1 DOSE TOP BID PRN for PAIN APPLY TO AREAS OF PAIN Carboxymethylcellulose Sodium (Refresh Tears) 15 Ml Drops, 1 DROP OU TID PRN for DRY EYES Oxycodone HCl (Roxicodone) 5 Mg Tablet, 1 TAB PO Q4H PRN for PAIN Allergies Coded Allergies: gabapentin (Verified Adverse Reaction, Intermediate, nausea vomiting, 04/03/19) spironolactone (Verified Adverse Reaction, Unknown, gynecomastia, 12/19/18) A-FIB/CHADSVASC A-FIB History Current/History of A-Fib/PAF?: No JOSH RICK MD Apr 03, 2019 13:23
[2019-04-03] MEDS: PIPERACILLIN/TAZOBACTAM SOD 3.375 GM in D5W MINI-BAG PLUS 50 ML IV SCH ×2 (14:58→20:48)
[2019-04-03 15:13] LABS: INR 1.66; PROTHROMBIN TIME 19.4 SECONDS (11.8-14.0)
[2019-04-03] MEDS: WARFARIN SOD 4 MG TAB PO SCH (17:00)
[2019-04-03] MEDS: HumaLOG INSULIN (NovoLOG) PER UNIT SC SCH ×2 (17:52→21:00)
[2019-04-03] MEDS: LACTULOSE 20 GM/30 ML SYRUP UD PO SCH ×3 (17:52→23:06)
[2019-04-03 20:00] VITALS: BP 143/76
[2019-04-03] MEDS: PREGABALIN 75 MG CAP(LYRICA) PO SCH ×2 (20:47→21:00)
[2019-04-03] MEDS: LEVEMIR (INSULIN DETEMIR) 1 UNITS/0.01ML SC SCH ×2 (21:00→22:27)
[2019-04-03] MEDS ORDERED: PERCOCET 5MG/325MG TAB PO ONE (22:00)
[2019-04-03] MEDS ORDERED: D5W/0.9% SODIUM CHLORIDE 500 ML IV SCH (22:00)
[2019-04-03] MEDS: THIAMINE HCL 200 MG/2 ML VIAL (J3411) IM SCH (22:27)
[2019-04-03] MEDS: FOLIC ACID 1 MG in NS 50 ML IV SCH (22:42)
[2019-04-03] MEDS ORDERED: MORPHINE 4 MG/ML 1ML VIAL/SYRINGE (J2270) IV ONE (22:45)
[2019-04-03 23:59] VITALS: BP 144/68
[2019-04-04] MEDS: PIPERACILLIN/TAZOBACTAM SOD 3.375 GM in D5W MINI-BAG PLUS 50 ML IV SCH ×3 (01:57→17:41)
[2019-04-04 04:00] VITALS: BP 168/78
[2019-04-04 05:15] LABS: HEMATOCRIT 29.5 % (42.0-52.0); MEAN CORPUSCULAR HEMOGLOBIN 33.1 pg (27.0-33.0); MEAN CORPUSCULAR HGB CONC 33.9 g/dl (32.0-36.5); MEAN CORPUSCULAR VOLUME 97.7 fl (80.0-96.0); PLATELET COUNT, AUTOMATED 165 10^3/uL (150-450); RED BLOOD COUNT 3.02 10^6/uL (4.30-6.10); WHITE BLOOD COUNT 8.3 10^3/uL (4.0-10.0)
[2019-04-04 05:26] LABS: INR 1.83; PROTHROMBIN TIME 20.9 SECONDS (11.8-14.0)
[2019-04-04] MEDS: LACTULOSE 20 GM/30 ML SYRUP UD PO SCH ×3 (05:59→17:42)
[2019-04-04] MEDS ORDERED: MORPHINE 4 MG/ML 1ML VIAL/SYRINGE (J2270) IV ONE (06:00)
[2019-04-04 06:07] LABS: ALBUMIN 2.3 GM/DL (3.2-5.2); ALT/SGPT 17 U/L (12-78); BILIRUBIN,TOTAL 2.4 MG/DL (0.2-1.0); BLOOD UREA NITROGEN 18 MG/DL (7-18); CALCIUM LEVEL 8.9 MG/DL (8.8-10.2); CARBON DIOXIDE LEVEL 23 MEQ/L (21-32); CHLORIDE LEVEL 120 MEQ/L (98-107); CREATININE FOR GFR 1.18 MG/DL (0.70-1.30); GLOMERULAR FILTRATION RATE > 60.0 (>49); GLUCOSE, FASTING 161 MG/DL (70-100); MAGNESIUM LEVEL 1.7 MG/DL (1.8-2.4); POTASSIUM SERUM 3.5 MEQ/L (3.5-5.1); SODIUM LEVEL 148 MEQ/L (136-145); TOTAL PROTEIN 7.8 GM/DL (6.4-8.2)
[2019-04-04] MEDS ORDERED: POTASSIUM CHLORIDE 10 MEQ SR TABLET PO ONE (07:45)
[2019-04-04 08:00] VITALS: BP 172/68
[2019-04-04] MEDS: MAG SULF 1GM/100ML (MAG RUN) 1 GM in IV 1 EA IV SCH ×2 (08:28→10:36)
[2019-04-04] MEDS ORDERED: SLF 3 ML SYR IV PRN (09:00)
[2019-04-04] MEDS: HumaLOG INSULIN (NovoLOG) PER UNIT SC SCH ×5 (10:30→21:17)
[2019-04-04] MEDS: PREGABALIN 75 MG CAP(LYRICA) PO SCH ×3 (10:39→21:00)
[2019-04-04] MEDS: lisinopriL 10 MG TAB PO SCH (10:39)
[2019-04-04] MEDS: THIAMINE HCL 200 MG/2 ML VIAL (J3411) IM SCH (10:40)
--- NOTE | 2019-04-04 10:48 | IPNPDOC ---
Date Seen The patient was seen on 04/04/19. Progress Note HISTORY OF PRESENT ILLNESS: [63-year-old male with past medical history of coronary artery disease, [place], diabetes mellitus, cirrhosis, hepatitis C and hypertension presents from home with severe lethargy. Patient is very lethargic, opens eyes to vocal/tactile stimuli but does not answer questions or follow any commands. Information obtained from significant other at bedside, patient was admitted recently for MSSA bacteremia, discharged home on the , was doing well up until 3 days ago when he stopped taking all of his medications. 2 days ago he became more lethargic, which continued and worsened to the point where she brought her in today. Patient has not taken any of his medications over the past 3 days. Significant other denies any fever or associated symptoms at home. Patient received a dose of lactulose in the ED. 04/04/19 Patient is more alert and awake today, sitting up on his own, eating breakfast when seen in the morning, patient is not speaking nor following commands arising questions, just stares and moans when any physical contact is made during examination. Patient has been receiving his lactulose, although it has been a challenge for the nursing staff. REVIEW OF SYSTEMS: Unable to obtain HOME MEDICATIONS: Please see below. PHYSICAL EXAMINATION: VITAL SIGNS: Please see below. GENERAL: No distress HEENT: Moist mucous membranes NECK: Supple CARDIOVASCULAR EXAMINATION: S1, S2, no murmurs RESPIRATORY EXAMINATION: Clear to auscultation, no wheezing ABDOMINAL EXAMINATION: Soft, nontender, nondistended, positive bowel sounds EXTREMITIES: Moving all extremities SKIN: No rash NEUROLOGICAL EXAMINATION: Unable to assess PSYCHIATRIC EXAMINATION: Calm LABORATORY DATA: See below. MICROBIOLOGY: Please see below. ASSESSMENT: 63-year-old male with past medical history of cirrhosis, hepatitis C, diabetes mellitus, coronary artery disease and hypertension is being admitted for hepatic encephalopathy. PLAN: 1. Hepatic encephalopathy. Ammonia level 142 in the ED, has not taken lactulose for the past 3 days, continue lactulose 30 mL every 6 hours. Infectious workup pending, continue Zosyn. 2. TIA. Continue home Coumadin for prophylaxis. INR subtherapeutic 3. Diabetes mellitus. continue Levemir 10 units at bedtime along with sliding scale insulin before meals and at bedtime. 4. Hypertension. Continue lisinopril DVT prophylaxis: Coumadin. GI prophylaxis: Not needed VS, I&O, 24H, Fishbone Vital Signs/I&O Vital Signs Date Time Temp Pulse Resp B/P (MAP) Pulse Ox O2 Delivery O2 Flow Rate FiO2 04/04/19 08:00 98.2 80 16 172/68 (102) 99 Room Air I&O- Last 24 Hours up to 6 AM 04/04/19 06:00 Intake Total 700.2 ml Output Total 0 ml Balance 700.2 ml Laboratory Data 24H LABS Laboratory Tests 2 04/03/19 14:47: Prothrombin Time 19.4H, Prothromb Time International Ratio 1.66 04/03/19 15:03: Lactic Acid Followup at 4 Hours 4.2*H 04/03/19 16:38: Bedside Glucose (Misc Panel) 254H 04/03/19 20:26: Bedside Glucose (Misc Panel) 116H 04/03/19 22:08: Bedside Glucose (Misc Panel) 164H 04/04/19 04:03: Bedside Glucose (Misc Panel) 152H 04/04/19 04:41: Nucleated Red Blood Cells % (auto) 0.0, Prothrombin Time 20.9H, Prothromb Time International Ratio 1.83, Anion Gap 5L, Glomerular Filtration Rate > 60.0, Calcium Level 8.9, Magnesium Level 1.7L, Total Bilirubin 2.4H, Aspartate Amino Transf (AST/SGOT) 35, Alanine Aminotransferase (ALT/SGPT) 17, Alkaline Phosphatase 72, Total Protein 7.8, Albumin 2.3L, Albumin/Globulin Ratio 0.42L 04/04/19 08:23: Bedside Glucose (Misc Panel) 210H CBC/BMP Laboratory Tests 04/04/19 04:41 Microbiology Microbiology 04/03/19 Blood Culture, Received Pending 04/03/19 Blood Culture, Received Pending JOSH RICK MD Apr 04, 2019 10:48
[2019-04-04] MEDS: D5W/0.45% SODIUM CHLORIDE 1,000 ML IV SCH (11:46)
[2019-04-04 12:00] VITALS: BP 164/82
--- NOTE | 2019-04-04 13:16 | ECGEPIP ---
[facility] - ED Test Date: 2019-04-03 Pat Name: JAXON KANG Department: Room: - Gender: Male Miller Helper: : 1955 Requested By: Sveta Ramos Order Number: [id number] Reading MD: Sveta Ramos Measurements Intervals [place] Rate: 77 P: 71 DC: 184 QRS: -66 QRSD: 70 T: -22 QT: 551 QTc: 625 Interpretive Statements SINUS RHYTHM POSSIBLE RIGHT VENTRICULAR CONDUCTION DELAY MODERATE VOLTAGE CRITERIA FOR LVH, CONSIDER NORMAL VARIANT INFERIOR MYOCARDIAL INFARCTION, OF INDETERMINATE AGE WITH POSTERIOR EXTENSION PROLONGED QTC CLINICAL CORRELATION Electronically Signed on 04-04-2019 13:16:06 EST by Sveta Ramos
[2019-04-04] MEDS: SLF 3 ML SYR IV SCH ×2 (14:00→21:18)
[2019-04-04 16:00] VITALS: BP 158/68
[2019-04-04] MEDS: WARFARIN SOD 4 MG TAB PO SCH (17:42)
[2019-04-04 20:00] VITALS: BP 173/80
[2019-04-04] MEDS: FOLIC ACID 1 MG in NS 50 ML IV SCH (21:16)
[2019-04-04] MEDS: LEVEMIR (INSULIN DETEMIR) 1 UNITS/0.01ML SC SCH (21:17)
[2019-04-04 23:59] VITALS: BP 177/83
[2019-04-05] MEDS: LACTULOSE 20 GM/30 ML SYRUP UD PO SCH ×6 (00:56→23:09)
[2019-04-05] MEDS: PIPERACILLIN/TAZOBACTAM SOD 3.375 GM in D5W MINI-BAG PLUS 50 ML IV SCH ×2 (00:57→06:28)
[2019-04-05 04:00] VITALS: BP 167/74
[2019-04-05] MEDS: D5W/0.45% SODIUM CHLORIDE 1,000 ML IV SCH ×2 (04:39→20:46)
[2019-04-05 05:43] LABS: HEMATOCRIT 29.5 % (42.0-52.0); HEMOGLOBIN 9.5 g/dl (13.5-17.5); MEAN CORPUSCULAR HEMOGLOBIN 32.5 pg (27.0-33.0); MEAN CORPUSCULAR HGB CONC 32.2 g/dl (32.0-36.5); PLATELET COUNT, AUTOMATED 138 10^3/uL (150-450); RED BLOOD COUNT 2.92 10^6/uL (4.30-6.10); WHITE BLOOD COUNT 6.1 10^3/uL (4.0-10.0)
[2019-04-05 05:55] LABS: INR 2.06
[2019-04-05] MEDS: SLF 3 ML SYR IV SCH ×3 (06:00→22:00)
[2019-04-05 06:02] LABS: ALBUMIN 2.2 GM/DL (3.2-5.2); ALT/SGPT 20 U/L (12-78); BLOOD UREA NITROGEN 13 MG/DL (7-18); CALCIUM LEVEL 7.9 MG/DL (8.8-10.2); CARBON DIOXIDE LEVEL 19 MEQ/L (21-32); CHLORIDE LEVEL 118 MEQ/L (98-107); CREATININE FOR GFR 1.15 MG/DL (0.70-1.30); GLOMERULAR FILTRATION RATE > 60.0 (>49); GLUCOSE, FASTING 288 MG/DL (70-100); MAGNESIUM LEVEL 1.7 MG/DL (1.8-2.4); POTASSIUM SERUM 3.4 MEQ/L (3.5-5.1); SODIUM LEVEL 145 MEQ/L (136-145); TOTAL PROTEIN 7.3 GM/DL (6.4-8.2)
[2019-04-05 08:00] VITALS: BP 171/78
[2019-04-05] MEDS: HumaLOG INSULIN (NovoLOG) PER UNIT SC SCH ×4 (08:36→20:48)
[2019-04-05] MEDS: PREGABALIN 75 MG CAP(LYRICA) PO SCH ×2 (08:37→20:47)
[2019-04-05] MEDS: lisinopriL 10 MG TAB PO SCH (08:37)
[2019-04-05] MEDS ORDERED: lisinopriL 10 MG TAB PO ONE (09:15)
[2019-04-05] MEDS: POTASSIUM CHLORIDE 10 MEQ SR TABLET PO SCH ×2 (09:59→15:44)
[2019-04-05] MEDS: MAG SULF 1GM/100ML (MAG RUN) 1 GM in IV 1 EA IV SCH ×2 (10:02→11:10)
[2019-04-05] MEDS: THIAMINE HCL 200 MG/2 ML VIAL (J3411) IM SCH (11:10)
[2019-04-05 12:00] VITALS: BP 168/78
[2019-04-05 16:00] VITALS: BP 158/66
[2019-04-05] MEDS: WARFARIN SOD 4 MG TAB PO SCH (18:24)
[2019-04-05 20:00] VITALS: BP 151/72
[2019-04-05] MEDS: LEVEMIR (INSULIN DETEMIR) 1 UNITS/0.01ML SC SCH (20:47)
--- NOTE | 2019-04-05 22:34 | IPNPDOC ---
Date Seen The patient was seen on 04/05/19. Progress Note HISTORY OF PRESENT ILLNESS: 63-year-old male with past medical history of coronary artery disease, [place], diabetes mellitus, cirrhosis, hepatitis C and hypertension presents from home with severe lethargy. Patient is very lethargic, opens eyes to vocal/tactile stimuli but does not answer questions or follow any commands. Information obtained from significant other at bedside, patient was admitted recently for MSSA bacteremia, discharged home on the , was doing well up until 3 days ago when he stopped taking all of his medications. 2 days ago he became more lethargic, which continued and worsened to the point where she brought her in today. Patient has not taken any of his medications over the past 3 days. Significant other denies any fever or associated symptoms at home. Patient received a dose of lactulose in the ED. 04/04/19 Patient is more alert and awake today, sitting up on his own, eating breakfast when seen in the morning, patient is not speaking nor following commands arising questions, just stares and moans when any physical contact is made during examination. Patient has been receiving his lactulose, although it has been a challenge for the nursing staff. 04/05/19 Patient's mentation continues to improve, now speaking, still confused but significantly improved from admission. He denies any SOB, CP, nausea or vomiting, reports chronic back pain. 10 point review of system is negative except for above. HOME MEDICATIONS: Please see below. PHYSICAL EXAMINATION: VITAL SIGNS: Please see below. GENERAL: No distress HEENT: Moist mucous membranes NECK: Supple CARDIOVASCULAR EXAMINATION: S1, S2, no murmurs RESPIRATORY EXAMINATION: Clear to auscultation, no wheezing ABDOMINAL EXAMINATION: Soft, nontender, nondistended, positive bowel sounds EXTREMITIES: ROM intact SKIN: No rash NEUROLOGICAL EXAMINATION: No focal deficits PSYCHIATRIC EXAMINATION: Calm LABORATORY DATA: See below. MICROBIOLOGY: Please see below. ASSESSMENT: 63-year-old male with past medical history of cirrhosis, hepatitis C, diabetes mellitus, coronary artery disease and hypertension is being admitted for hepatic encephalopathy. PLAN: 1. Hepatic encephalopathy. Improving w/ Lactulose, only 1 BM today, increase Lactulose frequency, will titrate to ~3 BMs/day. Infectious workup negative so far, will discontinue Zosyn. 2. TIA. Continue home Coumadin for prophylaxis. INR improving. 3. Diabetes mellitus. Increased Levemir to 20 units at bedtime, continue with sliding scale insulin before meals and at bedtime. 4. Hypertension. BP elevated, increased Lisinopril to 20 mg DVT prophylaxis: Coumadin. GI prophylaxis: Not needed VS, I&O, 24H, Fishbone Vital Signs/I&O Vital Signs Date Time Temp Pulse Resp B/P (MAP) Pulse Ox O2 Delivery O2 Flow Rate FiO2 04/05/19 20:00 98.5 78 20 151/72 (98) 100 Room Air I&O- Last 24 Hours up to 6 AM 04/05/19 05:59 Intake Total 2100.2 ml Output Total 400 ml Balance 1700.2 ml Laboratory Data 24H LABS Laboratory Tests 2 04/05/19 05:14: Nucleated Red Blood Cells % (auto) 0.0, Prothrombin Time 23.0H, Prothromb Time International Ratio 2.06, Anion Gap 8, Glomerular Filtration Rate > 60.0, Calcium Level 7.9L, Phosphorus Level 3.0, Magnesium Level 1.7L, Total Bilirubin 3.0H, Aspartate Amino Transf (AST/SGOT) 41H, Alanine Aminotransferase (ALT/SGPT) 20, Alkaline Phosphatase 74, Total Protein 7.3, Albumin 2.2L, Albumin/Globulin Ratio 0.43L 04/05/19 12:15: Bedside Glucose (Misc Panel) 180H 04/05/19 17:20: Bedside Glucose (Misc Panel) 261H 04/05/19 20:31: Bedside Glucose (Misc Panel) 305H CBC/BMP Laboratory Tests 04/05/19 05:14 Microbiology Microbiology 04/03/19 Blood Culture - Preliminary, Resulted No Growth after 48 hours. All Specime... 04/03/19 Blood Culture - Preliminary, Resulted No Growth after 48 hours. All Specime... JOSH RICK MD Apr 05, 2019 22:34
[2019-04-05] MEDS: FOLIC ACID 1 MG in NS 50 ML IV SCH (22:53)
[2019-04-05] MEDS ORDERED: LEVEMIR (INSULIN DETEMIR) 1 UNITS/0.01ML SC ONE (23:00)
[2019-04-06] VITALS: BP 178/80
[2019-04-06] MEDS ORDERED: PERCOCET 5MG/325MG TAB PO ONE
[2019-04-06] MEDS ORDERED: oxyCODONE 5MG TAB PO ONE (01:00)
[2019-04-06] MEDS: LACTULOSE 20 GM/30 ML SYRUP UD PO SCH ×4 (03:53→19:28)
[2019-04-06 03:57] VITALS: BP 164/70
[2019-04-06 05:23] LABS: HEMATOCRIT 30.4 % (42.0-52.0); HEMOGLOBIN 9.7 g/dl (13.5-17.5); MEAN CORPUSCULAR HEMOGLOBIN 32.9 pg (27.0-33.0); MEAN CORPUSCULAR HGB CONC 31.9 g/dl (32.0-36.5); MEAN CORPUSCULAR VOLUME 103.1 fl (80.0-96.0); PLATELET COUNT, AUTOMATED 141 10^3/uL (150-450); RED BLOOD COUNT 2.95 10^6/uL (4.30-6.10); WHITE BLOOD COUNT 7.4 10^3/uL (4.0-10.0)
[2019-04-06 05:32] LABS: INR 2.3; PROTHROMBIN TIME 25.1 SECONDS (11.8-14.0)
[2019-04-06 05:39] LABS: BLOOD UREA NITROGEN 10 MG/DL (7-18); CALCIUM LEVEL 8.4 MG/DL (8.8-10.2); CARBON DIOXIDE LEVEL 20 MEQ/L (21-32); CHLORIDE LEVEL 118 MEQ/L (98-107); CREATININE FOR GFR 0.96 MG/DL (0.70-1.30); GLOMERULAR FILTRATION RATE > 60.0 (>49); GLUCOSE, FASTING 148 MG/DL (70-100); POTASSIUM SERUM 3.6 MEQ/L (3.5-5.1); SODIUM LEVEL 143 MEQ/L (136-145)
[2019-04-06 05:40] LABS: MAGNESIUM LEVEL 1.8 MG/DL (1.8-2.4)
[2019-04-06] MEDS: SLF 3 ML SYR IV SCH ×3 (06:00→22:20)
[2019-04-06] MEDS: D5W/0.45% SODIUM CHLORIDE 1,000 ML IV SCH (07:19)
[2019-04-06] MEDS ORDERED: POTASSIUM CHLORIDE 10 MEQ SR TABLET PO ONE (07:45)
[2019-04-06 08:00] VITALS: BP 173/83
[2019-04-06] MEDS: HumaLOG INSULIN (NovoLOG) PER UNIT SC SCH ×4 (08:03→20:16)
[2019-04-06] MEDS: PREGABALIN 75 MG CAP(LYRICA) PO SCH ×2 (08:04→20:17)
[2019-04-06] MEDS: lisinopriL 10 MG TAB PO SCH (08:08)
[2019-04-06] MEDS ORDERED: MAG SULF 1GM/100ML (MAG RUN) 1 GM in IV 1 EA IV ONE (08:30)
[2019-04-06] MEDS: THIAMINE 100 MG TAB PO SCH (10:36)
[2019-04-06 12:00] VITALS: BP 154/74
[2019-04-06 16:00] VITALS: BP 168/78
[2019-04-06] MEDS: oxyCODONE 5MG TAB PO PRN ×2 (16:31→22:20)
[2019-04-06] MEDS: WARFARIN SOD 4 MG TAB PO SCH (17:48)
--- NOTE | 2019-04-06 19:30 | IPNPDOC ---
Date Seen The patient was seen on 04/06/19. Progress Note HISTORY OF PRESENT ILLNESS: 63-year-old male with past medical history of coronary artery disease, [place], diabetes mellitus, cirrhosis, hepatitis C and hypertension presents from home with severe lethargy. Patient is very lethargic, opens eyes to vocal/tactile stimuli but does not answer questions or follow any commands. Information obtained from significant other at bedside, patient was admitted recently for MSSA bacteremia, discharged home on the , was doing well up until 3 days ago when he stopped taking all of his medications. 2 days ago he became more lethargic, which continued and worsened to the point where she brought her in today. Patient has not taken any of his medications over the past 3 days. Significant other denies any fever or associated symptoms at home. Patient received a dose of lactulose in the ED. 04/04/19 Patient is more alert and awake today, sitting up on his own, eating breakfast when seen in the morning, patient is not speaking nor following commands arising questions, just stares and moans when any physical contact is made during examination. Patient has been receiving his lactulose, although it has been a challenge for the nursing staff. 04/05/19 Patient's mentation continues to improve, now speaking, still confused but significantly improved from admission. He denies any SOB, CP, nausea or vomiting, reports chronic back pain. 04/06/19 Patient more alert today, sitting in chair, tolerating diet, without complaints other than chronic back pain. He denies any shortness of breath, chest pain, nausea, vomiting, abdominal pain or diarrhea. 10 point review of system is negative except for above. HOME MEDICATIONS: Please see below. PHYSICAL EXAMINATION: VITAL SIGNS: Please see below. GENERAL: No distress HEENT: Moist mucous membranes NECK: Supple CARDIOVASCULAR EXAMINATION: S1, S2, no murmurs RESPIRATORY EXAMINATION: Clear to auscultation, no wheezing ABDOMINAL EXAMINATION: Soft, nontender, nondistended, positive bowel sounds EXTREMITIES: ROM intact SKIN: No rash NEUROLOGICAL EXAMINATION: No focal deficits PSYCHIATRIC EXAMINATION: Calm LABORATORY DATA: See below. MICROBIOLOGY: Please see below. ASSESSMENT: 63-year-old male with past medical history of cirrhosis, hepatitis C, diabetes mellitus, coronary artery disease and hypertension is being admitted for hepatic encephalopathy. PLAN: 1. Hepatic encephalopathy. Improving w/ Lactulose, decreased frequency to every 6 hours. 2. TIA. Continue home Coumadin for prophylaxis. INR therapeutic 3. Diabetes mellitus. Continue Levemir 20 units at bedtime and sliding scale insulin before meals and at bedtime. 4. Hypertension. Continue lisinopril 20 mg daily DVT prophylaxis: Coumadin. GI prophylaxis: Not needed VS, I&O, 24H, Fishbone Vital Signs/I&O Vital Signs Date Time Temp Pulse Resp B/P (MAP) Pulse Ox O2 Delivery O2 Flow Rate FiO2 04/06/19 17:01 18 99 Room Air 04/06/19 16:31 80 04/06/19 16:00 97.4 168/78 (108) I&O- Last 24 Hours up to 6 AM 04/06/19 06:00 Intake Total 1705 ml Output Total 450 ml Balance 1255 ml Laboratory Data 24H LABS Laboratory Tests 2 04/05/19 20:31: Bedside Glucose (Misc Panel) 305H 04/06/19 04:54: Nucleated Red Blood Cells % (auto) 0.0, Prothrombin Time 25.1H, Prothromb Time International Ratio 2.30, Anion Gap 5L, Glomerular Filtration Rate > 60.0, Calcium Level 8.4L, Magnesium Level 1.8 04/06/19 11:57: Bedside Glucose (Misc Panel) 360H 04/06/19 17:16: Bedside Glucose (Misc Panel) 152H CBC/BMP Laboratory Tests 04/06/19 04:54 Microbiology Microbiology 04/03/19 Blood Culture - Preliminary, Resulted No Growth after 72 hours. All specime... 04/03/19 Blood Culture - Preliminary, Resulted No Growth after 72 hours. All specime... JOSH RICK MD Apr 06, 2019 19:30
[2019-04-06 20:00] VITALS: BP 160/78
[2019-04-06] MEDS: LEVEMIR (INSULIN DETEMIR) 1 UNITS/0.01ML SC SCH (20:17)
[2019-04-06] MEDS: FOLIC ACID 1 MG in NS 50 ML IV SCH (22:18)
[2019-04-07] VITALS (7 sets, daily range): BP systolic 153–189; BP diastolic 65–98
[2019-04-07] MEDS: LACTULOSE 20 GM/30 ML SYRUP UD PO SCH ×4 (00:49→18:51)
[2019-04-07] MEDS: SLF 3 ML SYR IV SCH ×3 (05:45→22:01)
[2019-04-07 06:12] LABS: HEMOGLOBIN 9.6 g/dl (13.5-17.5); MEAN CORPUSCULAR HEMOGLOBIN 33.1 pg (27.0-33.0); MEAN CORPUSCULAR VOLUME 103.4 fl (80.0-96.0); PLATELET COUNT, AUTOMATED 123 10^3/uL (150-450); WHITE BLOOD COUNT 9.9 10^3/uL (4.0-10.0)
[2019-04-07 06:22] LABS: INR 2.03; PROTHROMBIN TIME 22.8 SECONDS (11.8-14.0)
[2019-04-07 06:23] LABS: PARTIAL THROMBOPLASTIN TIME 43.8 SECONDS (25.0-38.4)
[2019-04-07 06:42] LABS: BLOOD UREA NITROGEN 11 MG/DL (7-18); CALCIUM LEVEL 8.2 MG/DL (8.8-10.2); CARBON DIOXIDE LEVEL 22 MEQ/L (21-32); CHLORIDE LEVEL 113 MEQ/L (98-107); CREATININE FOR GFR 0.83 MG/DL (0.70-1.30); GLOMERULAR FILTRATION RATE > 60.0 (>49); GLUCOSE, FASTING 156 MG/DL (70-100); MAGNESIUM LEVEL 1.6 MG/DL (1.8-2.4); PHOSPHORUS LEVEL 2.7 MG/DL (2.5-4.9); POTASSIUM SERUM 3.8 MEQ/L (3.5-5.1); SODIUM LEVEL 140 MEQ/L (136-145)
[2019-04-07] MEDS ORDERED: POTASSIUM CHLORIDE 10 MEQ SR TABLET PO ONE (09:00)
[2019-04-07] MEDS: THIAMINE 100 MG TAB PO SCH (09:01)
[2019-04-07] MEDS: HumaLOG INSULIN (NovoLOG) PER UNIT SC SCH ×4 (09:01→22:00)
[2019-04-07] MEDS: PREGABALIN 75 MG CAP(LYRICA) PO SCH ×2 (09:02→22:01)
[2019-04-07] MEDS: lisinopriL 10 MG TAB PO SCH (09:02)
[2019-04-07] MEDS: MAG SULF 1GM/100ML (MAG RUN) 1 GM in IV 1 EA IV SCH ×4 (09:47→14:37)
--- NOTE | 2019-04-07 13:02 | IPNPDOC ---
Date Seen The patient was seen on 04/07/19. Progress Note HISTORY OF PRESENT ILLNESS: 63-year-old male with past medical history of coronary artery disease, [place], diabetes mellitus, cirrhosis, hepatitis C and hypertension presents from home with severe lethargy. Patient is very lethargic, opens eyes to vocal/tactile stimuli but does not answer questions or follow any commands. Information obtained from significant other at bedside, patient was admitted recently for MSSA bacteremia, discharged home on the , was doing well up until 3 days ago when he stopped taking all of his medications. 2 days ago he became more lethargic, which continued and worsened to the point where she brought her in today. Patient has not taken any of his medications over the past 3 days. Significant other denies any fever or associated symptoms at home. Patient received a dose of lactulose in the ED. 04/04/19 Patient is more alert and awake today, sitting up on his own, eating breakfast when seen in the morning, patient is not speaking nor following commands arising questions, just stares and moans when any physical contact is made during examination. Patient has been receiving his lactulose, although it has been a challenge for the nursing staff. 04/05/19 Patient's mentation continues to improve, now speaking, still confused but significantly improved from admission. He denies any SOB, CP, nausea or vomiting, reports chronic back pain. 04/06/19 Patient more alert today, sitting in chair, tolerating diet, without complaints other than chronic back pain. He denies any shortness of breath, chest pain, nausea, vomiting, abdominal pain or diarrhea. 04/07/19 Patient comfortable in bed, continues to improve with adherence to lactulose, no new complaints, awaiting rehabilitation placement. 10 point review of system is negative except for above. HOME MEDICATIONS: Please see below. PHYSICAL EXAMINATION: VITAL SIGNS: Please see below. GENERAL: No distress HEENT: Moist mucous membranes NECK: Supple CARDIOVASCULAR EXAMINATION: S1, S2, no murmurs RESPIRATORY EXAMINATION: Clear to auscultation, no wheezing ABDOMINAL EXAMINATION: Soft, nontender, nondistended, positive bowel sounds EXTREMITIES: ROM intact SKIN: No rash NEUROLOGICAL EXAMINATION: No focal deficits PSYCHIATRIC EXAMINATION: Calm LABORATORY DATA: See below. MICROBIOLOGY: Please see below. ASSESSMENT: 63-year-old male with past medical history of cirrhosis, hepatitis C, diabetes mellitus, coronary artery disease and hypertension is being admitted for hepatic encephalopathy. PLAN: 1. Hepatic encephalopathy. Resolved w/ Lactulose, decrease lactulose to every 8 hours, evaluated by physical therapy, rehabilitation recommended, social media job titles arranging placement. 2. TIA. Continue home Coumadin for prophylaxis. INR therapeutic 3. Diabetes mellitus. Continue Levemir 20 units at bedtime and sliding scale insulin before meals and at bedtime. 4. Hypertension. Continue lisinopril 20 mg daily Added Norvasc 10 mg per day due to poorly controlled blood pressure. DVT prophylaxis: Coumadin. GI prophylaxis: Not needed VS, I&O, 24H, Fishbone Vital Signs/I&O Vital Signs Date Time Temp Pulse Resp B/P (MAP) Pulse Ox O2 Delivery O2 Flow Rate FiO2 04/07/19 09:02 172/85 04/07/19 08:59 92 04/07/19 06:00 98.8 16 97 Room Air I&O- Last 24 Hours up to 6 AM 04/07/19 06:00 Intake Total 1540 ml Output Total 0 ml Balance 1540 ml Laboratory Data 24H LABS Laboratory Tests 2 04/06/19 17:16: Bedside Glucose (Misc Panel) 152H 04/06/19 20:07: Bedside Glucose (Misc Panel) 223H 04/07/19 05:26: Nucleated Red Blood Cells % (auto) 0.0, Prothrombin Time 22.8H, Prothromb Time International Ratio 2.03, Activated Partial Thromboplast Time 43.8H, Anion Gap 5L, Glomerular Filtration Rate > 60.0, Calcium Level 8.2L, Phosphorus Level 2.7, Magnesium Level 1.6L 04/07/19 11:27: Bedside Glucose (Misc Panel) 317H CBC/BMP Laboratory Tests 04/07/19 05:26 Microbiology Microbiology 04/03/19 Blood Culture - Preliminary, Resulted No Growth after 72 hours. All specime... 04/03/19 Blood Culture - Preliminary, Resulted No Growth after 72 hours. All specime... JOSH RICK MD Apr 07, 2019 13:02
[2019-04-07] MEDS: amLODIPine 10 MG TAB PO SCH (13:13)
[2019-04-07] MEDS: oxyCODONE 5MG TAB PO PRN ×2 (13:44→18:52)
[2019-04-07] MEDS: WARFARIN SOD 4 MG TAB PO SCH (18:52)
[2019-04-07] MEDS: LEVEMIR (INSULIN DETEMIR) 1 UNITS/0.01ML SC SCH (22:00)
[2019-04-07] MEDS: FOLIC ACID 1 MG in NS 50 ML IV SCH (22:01)
[2019-04-08] MEDS: POLYVINYL ALCOHOL OPHTH SOLN 15 ML(LIQUITEARS) OU PRN ×2 (01:23→16:26)
[2019-04-08] MEDS: LACTULOSE 20 GM/30 ML SYRUP UD PO SCH ×5 (01:23→21:09)
[2019-04-08 06:00] VITALS: BP 137/72
[2019-04-08 06:16] LABS: INR 1.91; PROTHROMBIN TIME 21.7 SECONDS (11.8-14.0)
[2019-04-08] MEDS: SLF 3 ML SYR IV SCH ×3 (06:53→21:10)
[2019-04-08] MEDS: oxyCODONE 5MG TAB PO PRN ×2 (06:54→21:10)
[2019-04-08] MEDS: HumaLOG INSULIN (NovoLOG) PER UNIT SC SCH ×4 (08:17→20:59)
[2019-04-08] MEDS: PREGABALIN 75 MG CAP(LYRICA) PO SCH ×2 (08:18→21:09)
[2019-04-08] MEDS: amLODIPine 10 MG TAB PO SCH (08:18)
[2019-04-08] MEDS: lisinopriL 10 MG TAB PO SCH (08:18)
[2019-04-08] MEDS: THIAMINE 100 MG TAB PO SCH (08:18)
[2019-04-08 08:19] VITALS: BP 152/71
[2019-04-08 14:00] VITALS: BP 161/76
[2019-04-08] MEDS: metFORMIN (GLUCOPHAGE) 1000 MG TABLET PO SCH ×2 (14:25→21:10)
[2019-04-08] MEDS: WARFARIN SOD 4 MG TAB PO SCH (16:26)
[2019-04-08] MEDS: FOLIC ACID 1 MG in NS 50 ML IV SCH (21:09)
[2019-04-08] MEDS: LEVEMIR (INSULIN DETEMIR) 1 UNITS/0.01ML SC SCH (21:10)
[2019-04-08 22:00] VITALS: BP 151/69
[2019-04-09] MEDS: LACTULOSE 20 GM/30 ML SYRUP UD PO SCH ×4 (01:23→13:03)
[2019-04-09] MEDS: SLF 3 ML SYR IV SCH ×2 (05:50→13:04)
[2019-04-09 06:00] VITALS: BP 159/74
[2019-04-09 09:22] VITALS: BP 163/77
[2019-04-09] MEDS: amLODIPine 10 MG TAB PO SCH (09:22)
[2019-04-09] MEDS: HumaLOG INSULIN (NovoLOG) PER UNIT SC SCH ×2 (09:22→13:04)
[2019-04-09] MEDS: THIAMINE 100 MG TAB PO SCH (09:23)
[2019-04-09] MEDS: lisinopriL 10 MG TAB PO SCH (09:23)
[2019-04-09] MEDS: metFORMIN (GLUCOPHAGE) 1000 MG TABLET PO SCH (09:23)
[2019-04-09] MEDS: PREGABALIN 75 MG CAP(LYRICA) PO SCH (09:23)
[2019-04-09] MEDS: oxyCODONE 5MG TAB PO PRN (09:24)
[2019-04-09 09:54] LABS: INR 1.71; PROTHROMBIN TIME 19.8 SECONDS (11.8-14.0)
[2019-04-09] MEDS ORDERED: LISI10TA4 PO (12:29)
[2019-04-09] MEDS ORDERED: AMLO10TA5 PO (12:29)
[2019-04-09] MEDS ORDERED: WARFARIN SOD 3 MG TAB PO SCH (17:00)
--- NOTE | 2019-04-09 18:12 | DS.PDOC ---
Discharge Summary General Date of Admission Apr 03, 2019 at 12:59 Date of Discharge 04/09/19 Attending Physician: JOSH RICK MD Discharge Summary PROCEDURES PERFORMED DURING STAY: None. ADMITTING DIAGNOSES: 1. Hepatic encephalopathy. DISCHARGE DIAGNOSES: 1. Hepatic encephalopathy. COMPLICATIONS/CHIEF COMPLAINT: Cad,Cirrhosis,Diabetes Mellitus,Htn. HISTORY OF PRESENT ILLNESS: 63-year-old male with past medical history of cirrhosis, coronary artery disease, diabetes mellitus, hypertension, was admitted for hepatic encephalopathy due to medication noncompliance. Patient stopped taking his lactulose 3-4 days prior to admission along with the rest of his medications, lethargic on presentation, restarted on lactulose. Patient has had significant improvement in mentation after restarting lactulose, back to his baseline at this time. Patient has been evaluated and cleared by physical therapy for discharge home. Patient is strongly advised to be compliant with lactulose, at bedside. Patient reports he will try his best to be compliant, clinically and hemodynamically stable for discharge home and outpatient follow-up. HOSPITAL COURSE: As above. DISCHARGE MEDICATIONS: Please see below. ALLERGIES: Please see below. PHYSICAL EXAMINATION: VITAL SIGNS: Please see below. GENERAL: No distress HEENT: Moist mucous membranes NECK: Supple CARDIOVASCULAR EXAMINATION: S1, S2, no murmurs RESPIRATORY EXAMINATION: Clear to auscultation, no wheezing ABDOMINAL EXAMINATION: Soft, nontender, nondistended, positive bowel sounds EXTREMITIES: ROM intact SKIN: No rash NEUROLOGICAL EXAMINATION: No focal deficits PSYCHIATRIC EXAMINATION: Calm LABORATORY DATA: Please see below. PROGNOSIS: Fair ACTIVITY: As tolerated. DIET: Cardiac with consistent carbs DISCHARGE PLAN: Follow with PCP within 1-2 weeks DISPOSITION: 01 Home, Self-Care. DISCHARGE INSTRUCTIONS: 1. As above. DISCHARGE CONDITION: Stable. TIME SPENT ON DISCHARGE: Greater than 22 minutes. Vital Signs/I&Os Vital Signs Date Time Temp Pulse Resp B/P (MAP) Pulse Ox O2 Delivery O2 Flow Rate FiO2 04/09/19 09:54 17 Room Air 04/09/19 09:22 92 163/77 04/09/19 06:00 99.4 98 I&O- Last 24 Hours up to 6 AM 04/09/19 06:00 Intake Total 1685.2 ml Output Total 750 ml Balance 935.2 ml Laboratory Data Labs 24H Laboratory Tests 2 04/08/19 20:26: Bedside Glucose (Misc Panel) 269H 04/09/19 06:09: Bedside Glucose (Misc Panel) 199H 04/09/19 09:11: Prothrombin Time 19.8H, Prothromb Time International Ratio 1.71 04/09/19 11:58: Bedside Glucose (Misc Panel) 283H FSBS Laboratory Tests Test 04/08/19 20:26 04/09/19 06:09 04/09/19 11:58 Range/Units Bedside Glucose (Misc Panel) 269 199 283 80-115 MG/DL Microbiology Microbiology 04/03/19 Blood Culture - Final, Complete NO GROWTH AFTER 5 DAYS 04/03/19 Blood Culture - Final, Complete NO GROWTH AFTER 5 DAYS Discharge Medications Scheduled Amlodipine Besylate (Amlodipine Besylate) 10 Mg Tablet, 10 MG PO DAILY Insulin Glargine (Lantus) 100 Unit/1 Ml Vial, 20 UNITS SC QHS, (Reported) PATIENT'S S/O STATES SHE WOULD LIKE EDUCATION ON HOW TO USE THIS SO SHE CAN ASSIST THE PATIENT. Lactulose (Lactulose) 10 Gm/15 Ml Solution, 30 ML PO BID, (Reported) Lisinopril (Lisinopril) 10 Mg Tablet, 20 MG PO DAILY Metformin HCl (Metformin HCl) 1,000 Mg Tablet, 1,000 MG PO BID, (Reported) Pregabalin (Lyrica) 150 Mg Capsule, 150 MG PO BID, (Reported) Warfarin Sodium (Warfarin Sodium) 2 Mg Tablet, 4 MG PO 6XWK, (Reported) TAKEN Sun Warfarin Sodium (Warfarin Sodium) 2 Mg Tablet, 3 MG PO 1XWK, (Reported) TAKEN SUNDAY Scheduled PRN Capsaicin (Capsaicin) 0.025% Cream..g., 1 DOSE TOP BID PRN for PAIN, (Reported) APPLY TO AREAS OF PAIN Carboxymethylcellulose Sodium (Refresh Tears) 15 Ml Drops, 1 DROP OU TID PRN for DRY EYES, (Reported) Oxycodone HCl (Roxicodone) 5 Mg Tablet, 1 TAB PO Q4H PRN for PAIN, (Reported) Allergies Coded Allergies: egg (Verified Allergy, Unknown, 04/07/19) gabapentin (Verified Adverse Reaction, Intermediate, nausea vomiting, 04/03/19) spironolactone (Verified Adverse Reaction, Unknown, gynecomastia, 12/19/18) JOSH RICK MD Apr 09, 2019 18:12
== END 2019-04-09 14:20 | disposition home or self-care (01) | DRG 443 ==
LOC: EDBD 09:49 → M ED 09:49 → M ED INP 12:59 → ENRESERVDT 13:38 → ENRESERVTM 13:38 → M MSPAV 14:06 → M PCU 21:30 → M MSPAV 04-06 23:59
PROVIDERS: ADMIT Internal Medicine; ATTEND Internal Medicine
DX: K72.90 Hepatic failure, unspecified without coma (principal); I25.10 Atherosclerotic heart disease of native coronary artery without angina pectoris; B19.20 Unspecified viral hepatitis C without hepatic coma; K74.60 Unspecified cirrhosis of liver; I10 Essential (primary) hypertension; E11.9 Type 2 diabetes mellitus without complications; Z90.49 Acquired absence of other specified parts of digestive tract; Z86.73 Personal history of transient ischemic attack (TIA), and cerebral infarction without residual deficits; I25.2 Old myocardial infarction; Z91.14 Patient's other noncompliance with medication regimen; Z79.01 Long term (current) use of anticoagulants; Z79.4 Long term (current) use of insulin; Z79.899 Other long term (current) drug therapy; Z91.09 Other allergy status, other than to drugs and biological substances; Z88.8 Allergy status to other drugs, medicaments and biological substances; Z91.012 Allergy to eggs

== ENCOUNTER 2019-08-19 16:35 | Inpatient (IN) | payer OTHER ==
[~2019-08-19] VITALS: Ht 177.8 cm; Wt 70.1 kg
[~2019-08-19 16:35] MED LIST changes: -ACETAMINOPHEN TAB 650MG DOSE (2X325MG) PO PRN; -ASPI81TAEC PO; -ATOR1TAB21 PO; -DEXTROSE 50% 50 ML SYRINGE IV PRN; -GLUCAGON INJ 1MG VIAL SC PRN; -GLUCOSE 4GM CHEW TABLET PO PRN; -HumaLOG INSULIN (NovoLOG) PER UNIT SC SCH; -LACTULOSE 20 GM/30 ML SYRUP UD PO SCH; -METO1TAB87 PO; -XIFA200T2 PO
[2019-08-19] MEDS ORDERED: NS 500 ML IV ONE (17:15)
[2019-08-19] MEDS ORDERED: LACTULOSE 20 GM/30 ML SYRUP UD PO ONE (17:15)
[2019-08-19 17:20] LABS: BASO # 0.1 10^3/uL (0.0-0.2); BASO % 1.4 % (0.0-1.0); EOS # 2.2 10^3/uL (0.0-0.5); HEMATOCRIT 36.2 % (42.0-52.0); HEMOGLOBIN 12.6 g/dl (13.5-17.5); LYMPH # 2.4 10^3/uL (1.5-5.0); LYMPH % 32.3 % (24.0-44.0); MEAN CORPUSCULAR HEMOGLOBIN 32.8 pg (27.0-33.0); MEAN CORPUSCULAR HGB CONC 34.8 g/dl (32.0-36.5); MEAN CORPUSCULAR VOLUME 94.3 fl (80.0-96.0); MONO # 0.7 10^3/uL (0.0-0.8); MONO % 9.3 % (0.0-5.0); NEUTROPHILS % 27.1 % (36.0-66.0); PLATELET COUNT, AUTOMATED 122 10^3/uL (150-450); RED BLOOD COUNT 3.84 10^6/uL (4.30-6.10); WHITE BLOOD COUNT 7.4 10^3/uL (4.0-10.0)
[2019-08-19 17:30] LABS: INR 1.83; PROTHROMBIN TIME 20.9 SECONDS (11.8-14.0)
[2019-08-19 17:31] LABS: PARTIAL THROMBOPLASTIN TIME 39.4 SECONDS (25.0-38.4)
[2019-08-19 17:47] LABS: EOS % 29.8 % (0.0-3.0)
[2019-08-19] MEDS ORDERED: NS 1,000 ML IV ONE (19:45)
[2019-08-19] MEDS ORDERED: GLUCAGON INJ 1MG VIAL SC PRN (20:30)
[2019-08-19] MEDS ORDERED: DEXTROSE 50% 50 ML SYRINGE IV PRN (20:30)
[2019-08-19] MEDS ORDERED: ACETAMINOPHEN TAB 650MG DOSE (2X325MG) PO PRN (20:30)
[2019-08-19] MEDS ORDERED: GLUCOSE 4GM CHEW TABLET PO PRN (20:30)
--- NOTE | 2019-08-19 20:32 | HPEPDOC ---
General Date of Admission 08/19/2019 Date of Service: Aug 19, 2019 Chief Complaint The patient is a 64-year-old male who presented to the ER with confusion History of Present Illness Patient is a 73-year-old male with a PMHx of CAD (Hx of [place]), HTN, DM2, Hx of TIA (on Coumadin), Hx of Endocarditis, Cirrhosis, Hepatitis C presented to the emergency room after he was noted to have confusion at home. Patient reports that he was using the TV remote and had some confusion as to have her use it. His had advised him to go to the emergency room for further evaluation. Patient reports that he has been compliant with his lactulose. He takes it 3 times a day, 15 mg.. He does report having a reduced number of bowel movements, reported once a day. Patient denies any chest pain, shortness of breath, cough, palpitations, fevers. He does report chills. Denies any abdominal pain, nausea, vomiting or urinary discomfort. Home Medications Scheduled Amlodipine Besylate (Amlodipine Besylate) 10 Mg Tablet, 10 MG PO DAILY Insulin Glargine (Lantus) 100 Unit/1 Ml Vial, 20 UNITS SC QHS, (Reported) PATIENT'S S/O STATES SHE WOULD LIKE EDUCATION ON HOW TO USE THIS SO SHE CAN ASSIST THE PATIENT. Lactulose (Lactulose) 10 Gm/15 Ml Solution, 30 ML PO BID, (Reported) Lisinopril (Lisinopril) 10 Mg Tablet, 20 MG PO DAILY Metformin HCl (Metformin HCl) 1,000 Mg Tablet, 1,000 MG PO BID, (Reported) Pregabalin (Lyrica) 150 Mg Capsule, 150 MG PO BID, (Reported) Warfarin Sodium (Warfarin Sodium) 2 Mg Tablet, 4 MG PO 6XWK, (Reported) TAKEN SUN Sun Warfarin Sodium (Warfarin Sodium) 2 Mg Tablet, 3 MG PO 1XWK, (Reported) TAKEN SUNDAY Scheduled PRN Capsaicin (Capsaicin) 0.025% Cream..g., 1 DOSE TOP BID PRN for PAIN, (Reported) APPLY TO AREAS OF PAIN Carboxymethylcellulose Sodium (Refresh Tears) 15 Ml Drops, 1 DROP OU TID PRN for DRY EYES, (Reported) Oxycodone HCl (Roxicodone) 5 Mg Tablet, 1 TAB PO Q4H PRN for PAIN, (Reported) Allergies Coded Allergies: egg (Verified Allergy, Unknown, 04/07/19) gabapentin (Verified Adverse Reaction, Intermediate, nausea vomiting, 04/03/19) spironolactone (Verified Adverse Reaction, Unknown, gynecomastia, ) Past Medical History Medical History CAD (Hx of [place]), HTN, DM2, Hx of TIA (on Coumadin), Hx of Endocarditis, Cirrhosis, Hepatitis C Surgical History Cholecystectomy Appendectomy Family History - Reviewed and is noncontributory to this current hospitalization Social History - Denies the use of alcohol, tobacco or illicit drugs currently - Lives with Review of Systems Other systems [10 point review of systems complete, all negative otherwise stated in HPI] Vital Signs - Vitals: BP 143/72, HR 67, RR 18, Sat 98%RA, Temp 96.8F - General: Lying in bed, Speaking slowly, AAOx2 (not sure of exact location) - HEENT: NC, AT, PERRLA, EOMI - CVS: RRR, +S1S2 - Lungs: Fair air entry bilaterally, No appreciable wheezing / rales / rhonchi - Abdomen: Soft, Non-distended, Non-tender - Extremities: No lower extremity edema, No calf tenderness - Neuro: No focal motor or sensory deficit - Skin: No visible rashes Laboratory Data Labs 24H Laboratory Tests 2 08/19/19 17:05: Immature Granulocyte % (Auto) 0.1, Neutrophils (%) (Auto) 27.1L, Lymphocytes (%) (Auto) 32.3, Monocytes (%) (Auto) 9.3H, Eosinophils (%) (Auto) 29.8H, Basophils (%) (Auto) 1.4H, Neutrophils # (Auto) 2.0, Lymphocytes # (Auto) 2.4, Monocytes # (Auto) 0.7, Eosinophils # (Auto) 2.2H, Basophils # (Auto) 0.1, Nucleated Red Blood Cells % (auto) 0.0, Prothrombin Time 20.9H, Prothromb Time International Ratio 1.83, Activated Partial Thromboplast Time 39.4H CBC/BMP Laboratory Tests 08/19/19 17:05 Microbiology Microbiology 08/19/19 Blood Culture, Received Pending 08/19/19 Blood Culture, Received Pending Plan / VTE VTE Prophylaxis Ordered?: Yes Plan Plan Hepatic encephalopathy - Patient presented to the emergency room after experiencing some confusion using the television remote - Patient reports compliance with medications, however, he has only had 1 bowel movement today - Physical without any focal neurologic deficits - Hemodynamically stable and afebrile - Lab work has revealed a significantly elevated ammonia - No signs of infection; Will check UA / Blood cultures - CXR 08/18: Without any significant findings, some blunting of L vertebral angle - Will start Lactulose 30 q6h and titrate for 3-4 BM daily - Will start Rifaxamin; Will check doppler US of liver Lactic acidosis - Lab work appears to show hemoconcentration - Will c/w IV fluid hydration CAD (Hx of [place]) - Denies any CP / SOB / Palpitations - Currenlty not on any anti-platelet therapy HTN - BP moderately controlled - Will resume home medications; Amlodipine, Lisinopril DM2 - Will start ISS and adjust dose of Long acting insulin Hx of TIA - Patient was started on Coumadin for CVA prophylaxis in the past - INR sub therapeutic; will follow INR Chronic pain / Neuropathy - c/w Pregabalin / Oxycodone (will adjust dose at this time) Hx of Endocarditis Cirrhosis / Hepatitis C DVT prophylaxis - Will c/w full anticoagulation with Warfarin ROBBY SIMMS MD Aug 19, 2019 20:32
[2019-08-19] MEDS: HumaLOG INSULIN (NovoLOG) PER UNIT SC SCH (21:00)
--- NOTE | 2019-08-19 21:47 | ECGEPIP ---
[facility] - ED Test Date: 2019-08-19 Pat Name: JAXON KANG Department: Room: - Gender: Male [employer]: [employer]AM : 1955 Requested By: ANA Jacobsen Order Number: [id number] Reading MD: Mane Sahu Measurements Intervals [place] Rate: 77 P: 45 SC: 184 QRS: -50 QRSD: 85 T: 19 QT: 418 QTc: 474 Interpretive Statements SINUS RHYTHM INCOMPLETE RIGHT BUNDLE BRANCH BLOCK LEFT ANTERIOR FASCICULAR BLOCK VOLTAGE CRITERIA FOR LVH SIMILAR TO 04/03/19 Electronically Signed on 08-19-2019 21:46:59 EDT by Mane Sahu
--- NOTE | 2019-08-19 22:49 | REP ---
REASON FOR EXAM: Cough. COMPARISON: Multiple, the latest 04/03/2019. There is chronic left CP angle blunting. The lung rob are otherwise clear. The right CP angle is sharp. The osseous structures are within normal limits. The technique utilized in obtaining the radiograph has magnified the cardiac silhouette and accentuated the interstitial markings. IMPRESSION: No acute cardiopulmonary disease. Electronically Signed by Sony Lerma DO 08/20/2019 01:22 P
[2019-08-19 23:00] VITALS: BP 155/74
[2019-08-19] MEDS: NS 1,000 ML IV SCH (23:22)
[2019-08-19] MEDS: WARFARIN SOD 4 MG TAB PO SCH (23:22)
[2019-08-19] MEDS: LACTULOSE 20 GM/30 ML SYRUP UD PO SCH (23:23)
[2019-08-19] MEDS: PERCOCET 5MG/325MG TAB PO PRN (23:23)
--- NOTE | 2019-08-19 23:45 | REPVR ---
PROCEDURE INFORMATION: Exam: US Duplex Artery and Vein of the Abdominal and/or Reproductive Organs, Complete Exam date and time: 08/19/2019 10:50 PM Age: 64 years old Clinical indication: Abnormal findings; Abnormal lab test; Elevated liver enzymes; Additional info: Evaluate for thrombus TECHNIQUE: Imaging protocol: Real-time duplex ultrasound scan of the arterial and venous flow of the abdominal and/or reproductive organs with B-mode, color Doppler flow and spectral waveform analysis with image documentation. Exam focused on the region of clinical concern. Complete exam. Duplex images required to evaluate vascular conditions. COMPARISON: No relevant prior studies available. FINDINGS: Portal venous: Exam is limited by bowel gas and respiratory motion. Flow is present in the main portal vein. There is a small segment of the main portal vein which does not demonstrate any Doppler blood flow, but no thrombus is directly visualized. The left and right portal veins are not well visualized due to motion but there is blood flow. Splenic vein is patent. Hepatic veins: Hepatic veins are patent. Liver: Hepatic artery is patent with normal flow. Liver is unremarkable. Gallbladder: Gallbladder is absent. Other findings: Kidneys are unremarkable. IMPRESSION: Possible nonocclusive thrombus in the main portal vein. Evaluation is limited by bowel gas and respiratory motion. Electronically signed by: Mendel Herman On 08/19/2019 23:44:44 PM
[2019-08-20] MEDS: PERCOCET 5MG/325MG TAB PO PRN ×3 (05:59→19:34)
[2019-08-20] MEDS: LACTULOSE 20 GM/30 ML SYRUP UD PO SCH ×4 (05:59→23:52)
[2019-08-20 06:00] VITALS: BP 148/86
[2019-08-20 06:21] LABS: INR 2.11; PROTHROMBIN TIME 23.4 SECONDS (11.8-14.0)
[2019-08-20] MEDS: HumaLOG INSULIN (NovoLOG) PER UNIT SC SCH ×4 (07:49→21:00)
[2019-08-20 08:27] LABS: BASO # 0.1 10^3/uL (0.0-0.2); BASO % 1.7 % (0.0-1.0); EOS # 2.6 10^3/uL (0.0-0.5); HEMATOCRIT 31.5 % (42.0-52.0); HEMOGLOBIN 10.9 g/dl (13.5-17.5); LYMPH # 2.1 10^3/uL (1.5-5.0); MEAN CORPUSCULAR HEMOGLOBIN 32.4 pg (27.0-33.0); MEAN CORPUSCULAR HGB CONC 34.6 g/dl (32.0-36.5); MEAN CORPUSCULAR VOLUME 93.8 fl (80.0-96.0); MONO # 0.8 10^3/uL (0.0-0.8); MONO % 11.9 % (0.0-5.0); NEUTROPHILS % 14.3 % (36.0-66.0); PLATELET COUNT, AUTOMATED 101 10^3/uL (150-450); RED BLOOD COUNT 3.36 10^6/uL (4.30-6.10); WHITE BLOOD COUNT 6.4 10^3/uL (4.0-10.0)
[2019-08-20 08:39] LABS: ALBUMIN 2.2 GM/DL (3.2-5.2); ALT/SGPT 23 U/L (12-78); BILIRUBIN,TOTAL 1.2 MG/DL (0.2-1.0); BLOOD UREA NITROGEN 8 MG/DL (7-18); CARBON DIOXIDE LEVEL 23 MEQ/L (21-32); CHLORIDE LEVEL 116 MEQ/L (98-107); CREATININE FOR GFR 0.84 MG/DL (0.70-1.30); GLOMERULAR FILTRATION RATE > 60.0 (>49); GLUCOSE, FASTING 222 MG/DL (70-100); MAGNESIUM LEVEL 1.5 MG/DL (1.8-2.4); PHOSPHORUS LEVEL 2.6 MG/DL (2.5-4.9); SODIUM LEVEL 145 MEQ/L (136-145); TOTAL PROTEIN 5.7 GM/DL (6.4-8.2)
[2019-08-20 08:55] LABS: EOS % 39.9 % (0.0-3.0); NEUTROPHILS # 0.9 10^3/uL (1.5-8.5)
[2019-08-20] MEDS: NS 1,000 ML IV SCH ×2 (11:51→21:50)
[2019-08-20] MEDS ORDERED: MAGNESIUM GLUCONATE 500 MG TAB PO ONE (14:00)
--- NOTE | 2019-08-20 14:18 | IPNPDOC ---
Text Note Date of Service The patient was seen on 08/20/19. NOTE Subjective: Patient slightly confused in the morning, he was not able subtract 7 from 100, but he was alert, oriented and awake. Objective: VITAL SIGNS: Please see below. GENERAL: awake, alert, NAD HEENT: NCAT, anicteric sclera, JIMMY NECK: supple, no JVD CARDIOVASCULAR EXAMINATION: NS1S2, regular rate/rhythm RESPIRATORY EXAMINATION: CTA b/l, no wheezes/rales/rhonchi ABDOMINAL EXAMINATION: positive bowel sounds x 4, NT EXTREMITIES: no cyanosis, clubbing, edema SKIN: warm, no rashes. NEUROLOGICAL EXAMINATION: AAO x 3, no motor/sensory deficits PSYCHIATRIC EXAMINATION: calm, normal affect Patient is 64 years old male with past medical history of cirrhosis, hepatic enc ephalopathy, coronary artery diseases, hypertension presented hospital with metabolic encephalopathy. Patient was found to have increased ammonia level. Hepatic encephalopathy Improved Ammonia level significantly elevated to 160 Continue lactulose with increased dose, continue rifaximin Cirrhosis Most likely secondary to hepatitis C Hepatitis C unknown status for treatment Doppler ultrasound showed possible nonocclusive thrombus in the main portal vein We will proceed with CT scan with contrast We will check liver ultrasound and alpha-fetoprotein We will repeat Doppler ultrasound if CT scan is negative Continue warfarin, patient stated that he took warfarin for previous TIA. I will try to obtain previous records to determine indications for chronic Coumadin use. Coronary artery diseases I will start aspirin, beta timbo and statin. Patient was not on any of these medications Hypertension Blood pressure under control Continue home cardioprotective medication Type 2 diabetes Continue insulin sliding scale Continue basal insulin History of TIA I will start aspirin Unclear why patient take warfarin, we will try to obtain previous records. EKG showed normal sinus rhythm Chronic pain / Neuropathy c/w Pregabalin / Oxycodone (will adjust dose at this time) Hx of Endocarditis VS,Fishbone, I+O VS, Fishbone, I+O Laboratory Tests 08/19/19 17:05 08/20/19 05:55 Vital Signs Date Time Temp Pulse Resp B/P (MAP) Pulse Ox O2 Delivery O2 Flow Rate FiO2 08/20/19 13:34 18 08/20/19 06:00 97.9 72 148/86 (106) 98 Room Air I&O- Last 24 Hours up to 6 AM 6/17/20 06:00 Intake Total 1800 ml Output Total 1100 ml Balance 700 ml GERALDINE ANGELES DO Aug 20, 2019 14:18
[2019-08-20] MEDS ORDERED: ISOVUE-370 76% 100ML VIAL As Ordered ONE (15:10)
--- NOTE | 2019-08-20 15:50 | REP ---
Clinical: Possible portal vein thrombosis. Technique: Contrast enhanced axial images from the lung bases to the pubic symphysis using 100 ml Isovue 370 intravenous contrast material with delayed images of the abdomen. Coronal and sagittal re-formations obtained. Findings: Delayed images through the abdomen demonstrate homogeneous enhancement of the splenic vein, superior mesenteric vein, and portal vein including both the right and left hepatic branches of the portal vein. Liver, spleen, pancreas, bilateral adrenal glands and kidneys are normal. Evidence of prior cholecystectomy noted. The enteric system is without obstruction or acute inflammatory process. Pelvis demonstrates normal bladder and age appropriate prostate/seminal vesicles. No ascites. No free air. No adenopathy. Abdominal aorta and branch vessels are normal and without aneurysm or dissection. Musculoskeletal structures demonstrate age-related degenerative changes without focal abnormality. Limited fibroatelectatic changes and scarring at the bilateral lung bases noted. Visualized portions of the heart and pericardium are normal. Impression: 1. Normal enhancement to the portal vein without evidence for thrombus/occlusion. 2. No acute abdominopelvic pathology appreciated. No ascites, focal inflammatory stranding, or adenopathy. Electronically Signed by Francois Barroso MD 08/20/2019 03:42 P
--- NOTE | 2019-08-20 15:59 | REP ---
Clinical: Cirrhosis. Technique: Real time campos scale ultrasound examination using curved array transducer. Findings: The liver demonstrates coarsened echotexture without obvious focal hepatic lesion identified. The pancreas is normal in appearance and echogenicity. Evidence of prior cholecystectomy with compensatory dilatation to the common bile duct measuring 12 mm. The right kidney is normal in reniform shape without hydronephrosis and measures 11.4 x 6.6 x 5.5 cm. The main portal vein measures up to 16 mm and appears somewhat tortuous but with normal color images and no obvious evidence for thrombosis. Color images and Doppler evaluation suggests the possibility of reversed hepatofugal flow in the superior mesenteric vein and main portal vein. Impression: 1. Coarsened hepatic echotexture consistent with cirrhosis. 2. Main portal vein is dilated to 16 mm and there are suggestions for reversed flow in portions of the main portal vein and superior mesenteric vein. Electronically Signed by Francois Barroso MD 08/20/2019 03:51 P
[2019-08-20] MEDS: WARFARIN SOD 4 MG TAB PO SCH (16:07)
[2019-08-20] MEDS: ATORVASTATIN 20 MG TAB PO SCH (16:07)
[2019-08-20] MEDS: METOPROLOL TART 12.5 MG PER 1/2 TAB PO SCH (16:07)
[2019-08-20] MEDS: ASPIRIN 81 MG ENTERIC TAB PO SCH (16:07)
[2019-08-20] MEDS: MAGNESIUM GLUCONATE 500 MG TAB PO SCH (21:49)
[2019-08-20 22:00] VITALS: BP 162/79
[2019-08-21] MEDS: PERCOCET 5MG/325MG TAB PO PRN ×2 (02:10→08:42)
[2019-08-21] MEDS ORDERED: ONDANSETRON 4 MG TAB PO PRN (05:45)
[2019-08-21 06:00] VITALS: BP 154/84
[2019-08-21] MEDS: LACTULOSE 20 GM/30 ML SYRUP UD PO SCH (06:03)
[2019-08-21 07:19] LABS: BASO # 0.2 10^3/uL (0.0-0.2); BASO % 2.5 % (0.0-1.0); EOS # 2.5 10^3/uL (0.0-0.5); HEMATOCRIT 33.5 % (42.0-52.0); HEMOGLOBIN 11.5 g/dl (13.5-17.5); LYMPH # 1.8 10^3/uL (1.5-5.0); LYMPH % 28.4 % (24.0-44.0); MEAN CORPUSCULAR HEMOGLOBIN 32.3 pg (27.0-33.0); MEAN CORPUSCULAR HGB CONC 34.3 g/dl (32.0-36.5); MEAN CORPUSCULAR VOLUME 94.1 fl (80.0-96.0); MONO # 0.6 10^3/uL (0.0-0.8); MONO % 9.1 % (0.0-5.0); NEUTROPHILS # 1.3 10^3/uL (1.5-8.5); NEUTROPHILS % 20.6 % (36.0-66.0); PLATELET COUNT, AUTOMATED 114 10^3/uL (150-450); RED BLOOD COUNT 3.56 10^6/uL (4.30-6.10); WHITE BLOOD COUNT 6.4 10^3/uL (4.0-10.0)
[2019-08-21 07:34] LABS: INR 2.18; PROTHROMBIN TIME 24.1 SECONDS (11.8-14.0)
[2019-08-21 07:43] LABS: BLOOD UREA NITROGEN 9 MG/DL (7-18); CARBON DIOXIDE LEVEL 22 MEQ/L (21-32); CHLORIDE LEVEL 115 MEQ/L (98-107); CREATININE FOR GFR 0.87 MG/DL (0.70-1.30); GLOMERULAR FILTRATION RATE > 60.0 (>49); GLUCOSE, FASTING 231 MG/DL (70-100); MAGNESIUM LEVEL 1.7 MG/DL (1.8-2.4); SODIUM LEVEL 144 MEQ/L (136-145)
[2019-08-21 07:51] VITALS: BP 154/84
[2019-08-21] MEDS: ATORVASTATIN 20 MG TAB PO SCH (07:51)
[2019-08-21] MEDS: MAGNESIUM GLUCONATE 500 MG TAB PO SCH (07:51)
[2019-08-21] MEDS: ASPIRIN 81 MG ENTERIC TAB PO SCH (07:51)
[2019-08-21] MEDS: METOPROLOL TART 12.5 MG PER 1/2 TAB PO SCH (07:51)
[2019-08-21] MEDS: HumaLOG INSULIN (NovoLOG) PER UNIT SC SCH (07:52)
[2019-08-21 07:54] LABS: EOS % 39.2 % (0.0-3.0)
[2019-08-21] MEDS: NS 1,000 ML IV SCH (10:30)
[2019-08-21] MEDS ORDERED: METO1TAB87 PO (12:37)
[2019-08-21] MEDS ORDERED: LACT20EL PO (12:37)
[2019-08-21] MEDS ORDERED: ASPI81TAEC PO (12:37)
[2019-08-21] MEDS ORDERED: XIFA200T2 PO (12:37)
[2019-08-21] MEDS ORDERED: ATOR1TAB21 PO (12:37)
--- NOTE | 2019-08-21 17:06 | DS.PDOC ---
Discharge Summary General Date of Admission Aug 19, 2019 at 20:25 Date of Discharge 08/21/19 Discharge Summary PROCEDURES PERFORMED DURING STAY: [None]. ADMITTING DIAGNOSES: Hepatic encephalopathy Cirrhosis Coronary artery diseases Hypertension Type 2 diabetes History of TIA Chronic pain / Neuropathy Hx of Endocarditis DISCHARGE DIAGNOSES: Hepatic encephalopathy Cirrhosis Coronary artery diseases Hypertension Type 2 diabetes History of TIA Chronic pain / Neuropathy Hx of Endocarditis COMPLICATIONS/CHIEF COMPLAINT: Hepatic Encephalopathy. HISTORY OF PRESENT ILLNESS: Patient is 64 years old male with past medical history of cirrhosis, hepatic encephalopathy, coronary artery diseases, hypertension presented hospital with metabolic encephalopathy. Patient was found to have increased ammonia level. HOSPITAL COURSE: During hospital course following issue addressed Hepatic encephalopathy Improved Ammonia level trended down Alpha-fetoprotein pending Continue lactulose with increased dose, continue rifaximin Cirrhosis Most likely secondary to hepatitis C Hepatitis C unknown status for treatment Doppler ultrasound showed possible nonocclusive thrombus in the main portal vein However CT scan with contrast was negative Continue warfarin, patient stated that he took warfarin for previous TIA. I tried to obtain previous records to determine indications for chronic Coumadin use. Coronary artery diseases I started aspirin, beta timbo and statin. Patient was not on any of these medications Hypertension Blood pressure under control Continue home cardioprotective medication Type 2 diabetes Continue insulin sliding scale Continue basal insulin History of TIA Unclear why patient take warfarin, we will try to obtain previous records. EKG showed normal sinus rhythm Chronic pain / Neuropathy c/w Pregabalin / Oxycodone (will adjust dose at this time) Hx of Endocarditis DISCHARGE MEDICATIONS: Please see below. ALLERGIES: Please see below. PHYSICAL EXAMINATION ON DISCHARGE: VITAL SIGNS: Please see below. GENERAL: awake, alert, NAD HEENT: NCAT, anicteric sclera, JIMMY NECK: supple, no JVD CARDIOVASCULAR EXAMINATION: NS1S2, regular rate/rhythm RESPIRATORY EXAMINATION: CTA b/l, no wheezes/rales/rhonchi ABDOMINAL EXAMINATION: positive bowel sounds x 4, NT EXTREMITIES: no cyanosis, clubbing, edema SKIN: warm, no rashes. NEUROLOGICAL EXAMINATION: AAO x 3, no motor/sensory deficits PSYCHIATRIC EXAMINATION: calm, normal affect LABORATORY DATA: Please see below. IMAGING: Clinical: Possible portal vein thrombosis. Technique: Contrast enhanced axial images from the lung bases to the pubic symphysis using 100 ml Isovue 370 intravenous contrast material with delayed images of the abdomen. Coronal and sagittal re-formations obtained. Findings: Delayed images through the abdomen demonstrate homogeneous enhancement of the splenic vein, superior mesenteric vein, and portal vein including both the right and left hepatic branches of the portal vein. Liver, spleen, pancreas, bilateral adrenal glands and kidneys are normal. Evidence of prior cholecystectomy noted. The enteric system is without obstruction or acute inflammatory process. Pelvis demonstrates normal bladder and age appropriate prostate/seminal vesicles. No ascites. No free air. No adenopathy. Abdominal aorta and branch vessels are normal and without aneurysm or dissection. Musculoskeletal structures demonstrate age-related degenerative changes without focal abnormality. Limited fibroatelectatic changes and scarring at the bilateral lung bases noted. Visualized portions of the heart and pericardium are normal. Impression: 1. Normal enhancement to the portal vein without evidence for thrombus/occlusion. 2. No acute abdominopelvic pathology appreciated. No ascites, focal inflammatory stranding, or adenopathy. Electronically Signed by Francois Barroso MD 08/20/2019 03:42 P PROGNOSIS: Fair ACTIVITY: [As tolerated]. DIET: Cardiac DISPOSITION: 01 Home, Self-Care. ITEMS TO FOLLOWUP ON ON OUTPATIENT: With PCP and state archivist DISCHARGE CONDITION: [Stable]. TIME SPENT ON DISCHARGE: Greater than 20 minutes. Vital Signs/I&Os Vital Signs Date Time Temp Pulse Resp B/P (MAP) Pulse Ox O2 Delivery O2 Flow Rate FiO2 08/21/19 09:12 18 08/21/19 07:51 78 154/84 08/21/19 06:00 98.3 94 Room Air I&O- Last 24 Hours up to 6 AM 08/21/19 06:00 Intake Total 2532 ml Output Total 650 ml Balance 1882 ml Laboratory Data Labs 24H Laboratory Tests 2 08/20/19 17:37: Bedside Glucose (Misc Panel) 182H 08/20/19 20:02: Bedside Glucose (Misc Panel) 147H 08/21/19 06:18: Prothrombin Time 24.1H, Prothromb Time International Ratio 2.18 08/21/19 06:53: Immature Granulocyte % (Auto) 0.2, Neutrophils (%) (Auto) 20.6L, Lymphocytes (%) (Auto) 28.4, Monocytes (%) (Auto) 9.1H, Eosinophils (%) (Auto) 39.2H, Basophils (%) (Auto) 2.5H, Neutrophils # (Auto) 1.3L, Lymphocytes # (Auto) 1.8, Monocytes # (Auto) 0.6, Eosinophils # (Auto) 2.5H, Basophils # (Auto) 0.2, Nucleated Red Blood Cells % (auto) 0.0, Anion Gap 7L, Glomerular Filtration Rate > 60.0, Calcium Level 8.0L, Magnesium Level 1.7L 08/21/19 08:32: Ammonia 96H CBC/BMP Laboratory Tests 08/21/19 06:53 FSBS Laboratory Tests Test 08/20/19 17:37 08/20/19 20:02 Range/Units Bedside Glucose (Misc Panel) 182 147 80-115 MG/DL Microbiology Microbiology 08/19/19 Blood Culture - Preliminary, Resulted No growth after 24 hours . All specim... 08/19/19 Blood Culture - Preliminary, Resulted No growth after 24 hours . All specim... Discharge Medications Scheduled Aspirin (Aspirin EC) 81 Mg Tablet.dr, 81 MG PO DAILY Atorvastatin Calcium (Atorvastatin Calcium) 20 Mg Tablet, 40 MG PO DAILY Insulin Glargine (Lantus) 100 Unit/1 Ml Vial, 20 UNITS SC QHS, (Reported) Lactulose (Lactulose) 10 Gm/15 Ml Solution, 40 ML PO Q6H Metformin HCl (Metformin HCl) 1,000 Mg Tablet, 1,000 MG PO BID, (Reported) Metoprolol Tartrate (Metoprolol Tartrate) 25 Mg Tablet, 12.5 MG PO DAILY Pregabalin (Lyrica) 150 Mg Capsule, 150 MG PO BID, (Reported) Rifaximin (Xifaxan) 200 Mg Tablet, 400 MG PO TID Warfarin Sodium (Warfarin Sodium) 2 Mg Tablet, 4 MG PO QPM, (Reported) @1700 Scheduled PRN Capsaicin (Capsaicin) 0.025% Cream..g., 1 DOSE TOP BID PRN for PAIN, (Reported) APPLY TO AREAS OF PAIN Carboxymethylcellulose Sodium (Refresh Tears) 15 Ml Drops, 1 DROP OU TID PRN for DRY EYES, (Reported) Oxycodone HCl (Roxicodone) 5 Mg Tablet, 10 MG PO BID PRN for PAIN, (Reported) Allergies Coded Allergies: egg (Verified Allergy, Unknown, 04/07/19) gabapentin (Verified Adverse Reaction, Intermediate, nausea vomiting, 04/03/19) spironolactone (Verified Adverse Reaction, Unknown, gynecomastia, 10/17/19) GERALDINE ANGELES DO Aug 21, 2019 17:06
== END 2019-08-21 13:00 | disposition home or self-care (01) | DRG 442 ==
LOC: M ED 16:35 → M ED INP 20:25 → ENRESERV 21:02 → M MS5PR 22:50
PROVIDERS: ADMIT Internal Medicine; ATTEND Internal Medicine
DX: K72.90 Hepatic failure, unspecified without coma (principal); E87.2 Acidosis; I25.10 Atherosclerotic heart disease of native coronary artery without angina pectoris; I25.2 Old myocardial infarction; G89.29 Other chronic pain; B19.20 Unspecified viral hepatitis C without hepatic coma; I10 Essential (primary) hypertension; K74.60 Unspecified cirrhosis of liver; E11.40 Type 2 diabetes mellitus with diabetic neuropathy, unspecified; Z86.73 Personal history of transient ischemic attack (TIA), and cerebral infarction without residual deficits; Z79.4 Long term (current) use of insulin; Z79.01 Long term (current) use of anticoagulants; Z79.899 Other long term (current) drug therapy; Z88.8 Allergy status to other drugs, medicaments and biological substances; Z91.012 Allergy to eggs

== ENCOUNTER → 2019-08-19 | Outpatient (CLI) | payer OTHER ==
[~2019-08-19] MED LIST changes: +ACETAMINOPHEN TAB 650MG DOSE (2X325MG) PO PRN; +AMLO10TA5 PO; +ASPI81TAEC PO; +ATOR1TAB21 PO; +DEXTROSE 50% 50 ML SYRINGE IV PRN; +GLUCAGON INJ 1MG VIAL SC PRN; +GLUCOSE 4GM CHEW TABLET PO PRN; +HumaLOG INSULIN (NovoLOG) PER UNIT SC SCH; +INSULANT SC; +LACT20EL PO; +LACTULOSE 20 GM/30 ML SYRUP UD PO SCH; +LISI10TA4 PO; +METO1TAB87 PO; +XIFA200T2 PO
[2019-08-19 14:53] LABS: ALBUMIN 2.8 GM/DL (3.2-5.2); ALT/SGPT 29 U/L (12-78); BLOOD UREA NITROGEN 9 MG/DL (7-18); CALCIUM LEVEL 8.5 MG/DL (8.8-10.2); CARBON DIOXIDE LEVEL 21 MEQ/L (21-32); CHLORIDE LEVEL 114 MEQ/L (98-107); CREATININE FOR GFR 0.95 MG/DL (0.70-1.30); GLOMERULAR FILTRATION RATE > 60.0 (>49); GLUCOSE, FASTING 154 MG/DL (70-100); POTASSIUM SERUM 4.4 MEQ/L (3.5-5.1); SODIUM LEVEL 142 MEQ/L (136-145)
== END ==
LOC: M LAB 13:50
PROVIDERS: ATTEND Nurse Practitioner Family
DX: R41.82 Altered mental status, unspecified (principal); K74.0 Hepatic fibrosis

== ENCOUNTER 2019-11-11 17:10 | Inpatient (IN) | payer OTHER ==
[~2019-11-11] VITALS: Ht 177.8 cm; Wt 69.5 kg
[~2019-11-11 17:10] MED LIST changes: -AMLO10TA5 PO; +AMLO1TAB25 PO; +ASPI81TAEC PO; +ATOR1TAB21 PO; +METO1TAB87 PO; +XIFA200T2 PO
--- NOTE | 2019-11-11 18:00 | REPVR ---
PROCEDURE INFORMATION: Exam: CT Head Without Contrast Exam date and time: 11/11/2019 5:22 PM Age: 64 years old Clinical indication: Injury or trauma; Fall; Initial encounter; Blunt trauma (contusions or hematomas) TECHNIQUE: Imaging protocol: Computed tomography of the head without contrast. Radiation optimization: All CT scans at this facility use at least one of these dose optimization techniques: automated exposure control; mA and/or kV adjustment per patient size (includes targeted exams where dose is matched to clinical indication); or iterative reconstruction. COMPARISON: CT Head without contrast 04/03/2019 9:57 AM FINDINGS: Brain: Global cerebral atrophy is consistent with patient's age. Decreased attenuation within the white matter tracts of both cerebral hemispheres is nonspecific but typically seen with small vessel disease/chronic white matter ischemic changes of aging. No intracranial hemorrhage or mass effect. Ventricles: Unremarkable. No ventriculomegaly. Bones/joints: Unremarkable. No acute fracture. Sinuses: Visualized sinuses are unremarkable. No fluid levels. Mastoid air cells: Visualized mastoid air cells are well aerated. Soft tissues: Unremarkable. IMPRESSION: No acute abnormality. Electronically signed by: Ari Spencer On 11/11/2019 18:00:43 PM
--- NOTE | 2019-11-11 18:05 | REPVR ---
PROCEDURE INFORMATION: Exam: CT Cervical Spine Without Contrast Exam date and time: 11/11/2019 5:22 PM Age: 64 years old Clinical indication: Injury or trauma; Fall; Initial encounter; Blunt trauma TECHNIQUE: Imaging protocol: Computed tomography images of the cervical spine without contrast. Radiation optimization: All CT scans at this facility use at least one of these dose optimization techniques: automated exposure control; mA and/or kV adjustment per patient size (includes targeted exams where dose is matched to clinical indication); or iterative reconstruction. COMPARISON: CT Spine,cervical w/o contrast 03/11/2019 11:45 AM FINDINGS: Vertebrae: No fracture or subluxation. Straightening of the normal cervical lordosis, likely due to splinting and/or patient positioning. Mild scoliosis of the cervicothoracic spine. Discs/Spinal canal/Neural foramina: Degenerative disc disease and facet arthrosis throughout the cervical spine. No severe bony spinal stenosis. Mild neural foraminal bony stenosis on the right at C3-C4. Moderate neural foraminal bony stenosis bilaterally at C5-C6 and C6-C7. Soft tissues: Small ossification within the ligamentum nuchae consistent with the sequelae of old trauma. Lungs: Lung apices are clear. IMPRESSION: 1. Degenerative spondylosis of the cervical spine. 2. No fracture or subluxation. Electronically signed by: Ari Spencer On 11/11/2019 18:05:55 PM
[2019-11-11] MEDS ORDERED: NS 1,000 ML IV ONE (19:15)
[2019-11-11 20:01] LABS: VENOUS BASE EXCESS -6.7 (-2.0-2.0); VENOUS HCO3 19.5 MEQ/L (23.0-27.0); VENOUS O2 SATURATION 84.9 % (60.0-80.0); VENOUS PARTIAL PRESSURE CO2 41.5 mmHg (38.0-50.0); VENOUS PARTIAL PRESSURE O2 53.9 mmHg (30.0-50.0); VENOUS STANDARD HCO3 18.8 MEQ/L; VENOUS TOTAL CO2 20.8 MEQ/L (24.0-28.0)
[2019-11-11 20:07] LABS: BASO # 0.1 10^3/uL (0.0-0.2); BASO % 2.2 % (0.0-1.0); EOS # 0.2 10^3/uL (0.0-0.5); EOS % 4.8 % (0.0-3.0); HEMATOCRIT 37.6 % (42.0-52.0); LYMPH # 1.5 10^3/uL (1.5-5.0); LYMPH % 37.2 % (24.0-44.0); MEAN CORPUSCULAR HEMOGLOBIN 33.9 pg (27.0-33.0); MEAN CORPUSCULAR HGB CONC 34.6 g/dl (32.0-36.5); MEAN CORPUSCULAR VOLUME 97.9 fl (80.0-96.0); MONO # 0.5 10^3/uL (0.0-0.8); NEUTROPHILS # 1.8 10^3/uL (1.5-8.5); NEUTROPHILS % 42.6 % (36.0-66.0); RED BLOOD COUNT 3.84 10^6/uL (4.30-6.10); WHITE BLOOD COUNT 4.1 10^3/uL (4.0-10.0)
--- NOTE | 2019-11-11 20:09 | REPVR ---
PROCEDURE INFORMATION: Exam: XR Chest, 2 Views Exam date and time: 11/11/2019 7:13 PM Age: 64 years old Clinical indication: Other: AMS; Additional info: Altered mental status TECHNIQUE: Imaging protocol: XR of the chest Views: 2 views. COMPARISON: CR PORTABLE CHEST X-RAY 08/19/2019 5:11 PM FINDINGS: Lungs: There is no focal lung consolidation. Lungs remain hyperinflated. Pleural space: Blunting of the left costophrenic sulcus is again noted. No pleural effusions or pneumothorax. Heart/Mediastinum: No significant enlargement of the cardiomediastinal silhouette. Bones/joints: Healed left clavicular fracture again noted. Organs: Surgical clips in gallbladder fossa. IMPRESSION: No acute findings. Electronically signed by: Argentina Peterson On 11/11/2019 20:09:29 PM
[2019-11-11 20:40] LABS: ACETAMINOPHEN LEVEL < 2.0 UG/ML (10.0-30.0); ALBUMIN 2.6 GM/DL (3.2-5.2); ALT/SGPT 58 U/L (12-78); BILIRUBIN,DIRECT 0.6 MG/DL (0.0-0.2); BILIRUBIN,TOTAL 1.4 MG/DL (0.2-1.0); BLOOD UREA NITROGEN 10 MG/DL (7-18); CALCIUM LEVEL 8.6 MG/DL (8.8-10.2); CARBON DIOXIDE LEVEL 20 MEQ/L (21-32); CHLORIDE LEVEL 105 MEQ/L (98-107); CK-MB VALUE MASS 1.1 NG/ML (<3.6); CPK CREATINE PHOSPHOKINASE 52 U/L (39-308); CREATININE FOR GFR 1.42 MG/DL (0.70-1.30); ETHYL ALCOHOL (ETHANOL) < 0.003 % (0.000-0.010); GLOMERULAR FILTRATION RATE 53.8 (>49); GLUCOSE, FASTING 553 MG/DL (70-100); MB/CK RELATIVE INDEX 2.12 (< OR =4); POTASSIUM SERUM 4.4 MEQ/L (3.5-5.1); SALICYLATE LEVEL < 1.7 MG/DL (5.0-30.0); SODIUM LEVEL 135 MEQ/L (136-145); TOTAL PROTEIN 6.5 GM/DL (6.4-8.2); TROPONIN I 0.09 NG/ML (< 0.10)
[2019-11-11] MEDS ORDERED: NS 2,040 ML in IV 1 EA IV ONE (21:00)
[2019-11-11 21:02] LABS: INR 2.28; PROTHROMBIN TIME 25.6 SECONDS (11.8-14.0)
[2019-11-11 21:03] LABS: PARTIAL THROMBOPLASTIN TIME 44.4 SECONDS (25.0-38.4)
[2019-11-11] MEDS: GASTROGRAFIN SOLUTION 30ML PO SCH ×2 (21:22→22:18)
[2019-11-11] MEDS ORDERED: ISOVUE-370 76% 100ML VIAL As Ordered ONE (23:10)
--- NOTE | 2019-11-12 00:32 | REPVR ---
PROCEDURE INFORMATION: Exam: CT Abdomen And Pelvis With Contrast Exam date and time: 11/11/2019 8:47 PM Age: 64 years old Clinical indication: Abdominal pain; Localized; Right; Additional info: Right sided abd pain TECHNIQUE: Imaging protocol: Computed tomography of the abdomen and pelvis with intravenous contrast. Radiation optimization: All CT scans at this facility use at least one of these dose optimization techniques: automated exposure control; mA and/or kV adjustment per patient size (includes targeted exams where dose is matched to clinical indication); or iterative reconstruction. Contrast material: ISO; Contrast volume: 100 ml; Contrast route: INTRAVENOUS (IV); COMPARISON: CT ABD PELVIS WITH CONTRAST 08/20/2019 3:18 PM FINDINGS: Lungs: Mild bilateral increased interstitial markings with left base atelectasis/scarring. Liver: Liver is enlarged with diffuse fatty infiltration. Gallbladder and bile ducts: Status post cholecystectomy. CBD is enlarged measuring 13 mm without any CBD stones. Pancreas: Normal. No ductal dilation. Spleen: Normal. No splenomegaly. Adrenals: Normal. No mass. Kidneys and ureters: Normal. No hydronephrosis. Stomach and bowel: Moderate fecal loading in the colon. No bowel dilatation or obstruction. Appendix: Appendix is not seen. No secondary signs to suggest acute appendicitis. Intraperitoneal space: Unremarkable. No free air. No significant fluid collection. Vasculature: Unremarkable. No abdominal aortic aneurysm. Lymph nodes: Unremarkable. No enlarged lymph nodes. Bladder: Distended urinary bladder. Reproductive: Unremarkable as visualized. Bones/joints: Unremarkable. No acute fracture. Soft tissues: Small sliding type of hernia. IMPRESSION: Limited study secondary to motion artifact. Given limitation of the motion artifact no acute finding is seen. Fatty enlarged liver. Status post cholecystectomy. CBD is enlarged measuring up to 13 mm without any CBD stones. Appendix is not seen. No secondary signs to suggest acute appendicitis. No bowel dilatation or obstruction. Moderate fecal loading in the colon. Electronically signed by: Vania Reeder On 11/12/2019 00:32:06 AM
[2019-11-12 00:33] LABS: AMPHETAMINES LEVEL URINE NEGATIVE (NEGATIVE); BARBITURATES URINE NEGATIVE (NEGATIVE); BENZODIAZEPINES URINE NEGATIVE (NEGATIVE); CANNABINOIDS URINE NEGATIVE (NEGATIVE); COCAINE METABOLITE URINE NEGATIVE (NEGATIVE); METHADONE URINE NEGATIVE (NEGATIVE); OPIATES URINE POSITIVE (NEGATIVE); PHENCYCLIDINE URINE NEGATIVE (NEGATIVE)
[2019-11-12] MEDS ORDERED: NS 1,000 ML IV ONE (02:15)
[2019-11-12] MEDS ORDERED: ACETAMINOPHEN TAB 650MG DOSE (2X325MG) PO PRN (02:15)
[2019-11-12] MEDS ORDERED: METO1TAB87 PO (02:41)
[2019-11-12] MEDS ORDERED: WARF-20 PO ×2 (02:41)
[2019-11-12] MEDS ORDERED: LACT20EL PO (02:41)
[2019-11-12] MEDS ORDERED: ASPI-161 PO (02:41)
[2019-11-12] MEDS ORDERED: XIFA550T PO (02:41)
[2019-11-12] MEDS ORDERED: ATOR40TA75 PO (02:41)
[2019-11-12] MEDS ORDERED: LISI10TA4 PO (02:41)
[2019-11-12 03:00] LABS: HEMOGLOBIN A1c 10.9 %
--- NOTE | 2019-11-12 03:03 | HPEPDOC ---
[facility] Medical History & Physical Date of Admission Nov 12, 2019 Date of Service: Nov 12, 2019 Attending Physician: Lia Mcdonnell MD History and Physical CHIEF COMPLAINT: AMS HISTORY OF PRESENT ILLNESS: Patient was brought in by his due to increasing levels of confusion and generalized weakness. Per ED attending, patient was significantly altered on arrival and subsequent lab work only revealed a lactic acidosis, elevated blood glucose, and a mild MAYUR. On speaking with him he notes a multi-month history of generalized weakness and earlier in the day apparently collapsed to his knees with no LOC, head injury and no inciting event or symptoms including chest pain, palpitations, or SOB. He is not a very good historian and was unable to give further details surrounding the event. PAST MEDICAL HISTORY: Coronary artery disease Hepatitis C Cirrhosis Hypertension Diabetes Mellitus Hx of hepatic encephalopathy Hx of TIA Hx of endocarditis PAST SURGICAL HISTORY: Cholecystectomy appendectomy ex-lap for liver laceration SOCIAL HISTORY: Denies alcohol use currently, states he has not had any alcohol in 3 weeks, previous 6 pack/day drinker, smokes 1PPD, denies illicit drug use including marijuana, heroin, cocaine, PCP. FAMILY HISTORY: No significant family history. ALLERGIES: Please see below. REVIEW OF SYSTEMS: Constitutional: Denies weight loss, change in appetite, or recent trauma Eyes: No visual changes or eye pain Ears, Nose, Throat: Denies nose bleeds, or difficulty swallowing Cardiovascular: Denies chest pain, sweating, or orthopnea Respiratory: Denies wheezing, or shortness of breath, admits to chronic non- productive cough GI: Teofilo nausea, vomiting, abdominal pain, diarrhea or constipation : Denies pain with urination or frequency Musculoskeletal: Admits to bilateral joint pain in ankles, knees, hips, and shoulders. Admits to generalized weakness. Neuro / Psych: Denies muscle weakness or sensory loss Skin: No skin rashes noted HOME MEDICATIONS: Please see below. PHYSICAL EXAMINATION: VITAL SIGNS: See below GENERAL APPEARANCE: Tired appearing male laying in bed in no acute distress, but interactive and cooperative. HEENT: NC, AT, EOMI, no scleral icterus, mucous membranes dry, no pharyngeal erythema. CARDIOVASCULAR: RRR, holosystolic murmur best heard a LUSB, LUNGS: CTAB with full breath sounds, no wheezes, crackles, or rhonchi. ABDOMEN: Soft, mildly tender to light palpation in epigastrium, non-distended, no masses. slight eccymosis below umbilicus. No CVA tenderness. MUSCULOSKELETAL: Tenderness to light palpation over ankles, knees, hips, shoulders, wrists. EXTREMITIES: No swelling or edema NEUROLOGICAL: A&Ox4. CNIII-XII intact. No focal motor or sensory deficits PSYCHIATRIC: Normal mood and affect LABORATORY DATA: See below. IMAGIN11/11/2019 CT abd/pelvis: IMPRESSION: Limited study secondary to motion artifact. Given limitation of the motion artifact no acute finding is seen. Fatty enlarged liver. Status post cholecystectomy. CBD is enlarged measuring up to 13 mm without any CBD stones. Appendix is not seen. No secondary signs to suggest acute appendicitis. No bowel dilatation or obstruction. Moderate fecal loading in the colon. 11/11/2019 CXR: IMPRESSION: No acute findings. 11/11/[address]: IMPRESSION: 1. Degenerative spondylosis of the cervical spine. 2. No fracture or subluxation. 11/11/[address]: IMPRESSION: No acute abnormality. MICROBIOLOGY: Please see below. Assessment/Plan: #. Type B lactic acidosis 2/2 to metformin use - Lactic acid 6.8, currently <5. - CXR, UA, CT abd/pelvis, head and neck CT all normal with normal CBC with no left shift consistent with Type B lactic acidosis - Holding metformin - ED reached out to Dr. Espinal, no indications for dialysis at this time. REecommending continuing with aggressive IV hydration, if day team requires further assistance, could consider consultation for same. - F/u repeat lactic acid in AM #. Metabolic encephalopathy likely multifactorial due to dehydration, uremia, hyperglycemia, hyperammonemia -Significantly improved from initial exam with ED doc, patient now AOx4 -Monitor mental status closely -C/w individual treatment plans as stated under "Plan" #. Mild non-anion gap metabolic acidosis -Consistent with lactic acidosis #. Acute renal failure -Pre-renal etiology, will continue hydrating patient. -Nephrotoxic agents held. #. Weakness likely multifactorial (acidosis, hyperglycemia, MAYUR, dehydration) -PT/OT consulted for physical deconditioning. #. Type 2 DM -Patient initially with elevated blood glucose levels, will transition back to AC/HS sliding scale once these are under better control. -Sliding scale insulin -May consider restarting long acting insulin in AM since he missed evening dose. -A1C of 10.9 #. Liver cirrhosis - Mild AST elevation, will continue to trend. -Continue with lactulose, rifaximin #. Elevated troponin, chronic -0.09, baseline is elevated from normal -No chest pain or EKG changes #. Hyperammonemia -Currently better than baseline for this level, states to be compliant with home medications #. Dilated CBD -CT: 13 mm, no stones seen -Increased bili, AST but patient without n/v, abdominal pain -If needed, consider MRCP/ERCP #. HTN -Hold home lisinopril until renal function improves #. CAD s/p cardiac cath 12/2018 -Continue atorvastatin, metoprolol #. Chronic Pain -Continue with home oxycodone, capsaicin, hold lyrica until renal function is back to baseline #. Hx of TIA? -Patient has been on prophylactic coumadin for CVA per past admission notes, unclear if he has a hx of multiple strokes in the past. DVT prophylaxis: Patient is on coumadin Code status: Full code Dispo: At least 2 midnights pending clinical improvement. Vital Signs Vital Signs Date Time Temp Pulse Resp B/P (MAP) Pulse Ox O2 Delivery O2 Flow Rate FiO2 11/11/19 17:22 11/11/19 17:11 98.6 65 17 98 Room Air Laboratory Data Labs 24H Laboratory Tests 2 11/11/19 19:46: Immature Granulocyte % (Auto) 0.2, Neutrophils (%) (Auto) 42.6, Lymphocytes (%) (Auto) 37.2, Monocytes (%) (Auto) 13.0H, Eosinophils (%) (Auto) 4.8H, Basophils (%) (Auto) 2.2H, Neutrophils # (Auto) 1.8, Lymphocytes # (Auto) 1.5, Monocytes # (Auto) 0.5, Eosinophils # (Auto) 0.2, Basophils # (Auto) 0.1, Nucleated Red Blood Cells % (auto) 0.0, Prothrombin Time 25.6H, Prothromb Time International Ratio 2.28, Activated Partial Thromboplast Time 44.4H, Blood Gas Bicarbonate Standard 18.8, Venous Blood pH 7.290L, Venous Blood Partial Pressure CO2 41.5, Venous Blood Partial Pressure O2 53.9H, Venous Blood Total Carbon Dioxide 20.8L, Venous Blood HCO3 19.5L, Venous Blood Oxygen Saturation 84.9H, Venous Blood Base Excess -6.7L, Anion Gap 10, Glomerular Filtration Rate 53.8, Lactic Acid Level 6.8*H, Calcium Level 8.6L, Total Bilirubin 1.4H, Direct Bilirubin 0.6H, Aspartate Amino Transf (AST/SGOT) 70H, Alanine Aminotransferase (ALT/SGPT) 58, Alkaline Phosphatase 112, Ammonia 54H, Total Creatine Kinase 52, Creatine Kinase MB 1.1, Creatine Kinase MB Relative Index 2.12, Troponin I 0.09, Total Protein 6.5, Albumin 2.6L, Albumin/Globulin Ratio 0.7, Thyroid Stimulating Hormone (TSH) 1.860, Salicylates Level < 1.7L, Acetaminophen Level < 2.0L, Ethyl Alcohol Level < 0.003 11/11/19 23:08: Lactic Acid Level 5.2*H 11/11/19 23:48: Urine Color YELLOW, Urine Appearance CLEAR, Urine pH 5.0, Urine Specific [place] 1.035, Urine Protein NEGATIVE, Urine Glucose (UA) 3+H, Urine Ketones TRACEH, Urine Blood 1+H, Urine Nitrite NEGATIVE, Urine Bilirubin NEGATIVE, Urine Urobilinogen 0.2, Urine Leukocyte Esterase NEGATIVE, Urine WBC (Auto) 3, Urine RBC (Auto) 1, Urine Hyaline Casts (Auto) 0, Urine Bacteria (Auto) NEGATIVE, Urine Squamous Epithelial Cells 0, Urine Sperm (Auto) , Urine Opiates Screen POSITIVEH, Urine Methadone Screen NEGATIVE, Urine Barbiturates Screen NEGATIVE, Urine Phencyclidine Screen NEGATIVE, Urine Amphetamines Screen NEGATIVE, Urine Benzodiazepines Screen NEGATIVE, Urine Cocaine Metabolite Screen NEGATIVE, Urine Cannabinoids Screen NEGATIVE 11/12/19 02:29: CBC/BMP Laboratory Tests 11/11/19 19:46 Microbiology Microbiology 11/11/19 Blood Culture, Received Pending 11/11/19 Blood Culture, Received Pending Home Medications Scheduled Aspirin (Aspirin EC) 81 Mg Tablet.dr, 81 MG PO DAILY Atorvastatin Calcium (Atorvastatin Calcium) 40 Mg Tablet, 40 MG PO DAILY Insulin Glargine (Lantus) 100 Unit/1 Ml Vial, 20 UNITS SC DAILY Lactulose (Lactulose) 10 Gm/15 Ml Solution, 40 ML PO Q6H Lisinopril (Lisinopril) 10 Mg Tablet, 10 MG PO DAILY Metformin HCl (Metformin HCl) 1,000 Mg Tablet, 1,000 MG PO BID Metoprolol Tartrate (Metoprolol Tartrate) 25 Mg Tablet, 12.5 MG PO DAILY Pregabalin (Lyrica) 150 Mg Capsule, 150 MG PO BID Rifaximin (Xifaxan) 550 Mg Tablet, 550 MG PO BID Warfarin Sodium (Warfarin Sodium) 4 Mg Tablet, 4 MG PO 6XWK EVERY DAY BUT SUNDAY Warfarin Sodium (Warfarin Sodium) 4 Mg Tablet, 6 MG PO 1XWK SUNDAY Scheduled PRN Capsaicin (Capsaicin) 0.025% Cream..g., 1 DOSE TOP BID PRN for PAIN APPLY TO BACK Carboxymethylcellulose Sodium (Refresh Tears) 15 Ml Drops, 1 DROP OU TID PRN for DRY EYES Oxycodone HCl (Roxicodone) 5 Mg Tablet, 5 MG PO Q4H PRN for PAIN Allergies Coded Allergies: egg (Verified Allergy, Unknown, 04/07/19) gabapentin (Verified Adverse Reaction, Intermediate, nausea vomiting, 04/03/19) spironolactone (Verified Adverse Reaction, Unknown, gynecomastia, 12/19/18) GME ATTESTATION ATTENDING NOTE I, Lia Mcdonnell , have independently examined this patient and performed my own physical exam, as well as reviewed the documentation and edited where necessary. I have discussed in detail with the resident / student the findings and plan of treatment as documented by the resident / student and edited their note. I agree with their findings and treatment plan and have edited their documentation. I will continue to follow the patient during this hospital stay. HEATHER WAGNER DO Nov 12, 2019 03:03 Lia Mcdonnell MD Nov 12, 2019 08:43
[2019-11-12] MEDS ORDERED: CAPSAICIN 0.025% CR 60 GM TOP PRN (03:45)
[2019-11-12 04:11] LABS: BASO # 0.1 10^3/uL (0.0-0.2); BASO % 2.3 % (0.0-1.0); EOS # 0.2 10^3/uL (0.0-0.5); EOS % 5.6 % (0.0-3.0); HEMATOCRIT 33.6 % (42.0-52.0); HEMOGLOBIN 11.7 g/dl (13.5-17.5); LYMPH # 1.8 10^3/uL (1.5-5.0); LYMPH % 42.7 % (24.0-44.0); MEAN CORPUSCULAR HEMOGLOBIN 33.6 pg (27.0-33.0); MEAN CORPUSCULAR HGB CONC 34.8 g/dl (32.0-36.5); MEAN CORPUSCULAR VOLUME 96.6 fl (80.0-96.0); MONO # 0.5 10^3/uL (0.0-0.8); MONO % 11.4 % (0.0-5.0); NEUTROPHILS # 1.6 10^3/uL (1.5-8.5); NEUTROPHILS % 37.8 % (36.0-66.0); RED BLOOD COUNT 3.48 10^6/uL (4.30-6.10); WHITE BLOOD COUNT 4.3 10^3/uL (4.0-10.0)
[2019-11-12 04:22] VITALS: BP 158/70
[2019-11-12] MEDS: NS 1,000 ML IV SCH ×2 (04:35→08:55)
[2019-11-12 04:44] LABS: ALBUMIN 2.5 GM/DL (3.2-5.2); ALT/SGPT 52 U/L (12-78); BILIRUBIN,TOTAL 1.4 MG/DL (0.2-1.0); BLOOD UREA NITROGEN 6 MG/DL (7-18); CALCIUM LEVEL 7.8 MG/DL (8.8-10.2); CARBON DIOXIDE LEVEL 22 MEQ/L (21-32); CHLORIDE LEVEL 109 MEQ/L (98-107); CK-MB VALUE MASS 1.2 NG/ML (<3.6); CPK CREATINE PHOSPHOKINASE 73 U/L (39-308); CREATININE FOR GFR 1.01 MG/DL (0.70-1.30); GLOMERULAR FILTRATION RATE > 60.0 (>49); GLUCOSE, FASTING 322 MG/DL (70-100); MB/CK RELATIVE INDEX 1.64 (< OR =4); POTASSIUM SERUM 3.6 MEQ/L (3.5-5.1); SODIUM LEVEL 137 MEQ/L (136-145); TROPONIN I 0.09 NG/ML (< 0.10)
[2019-11-12 04:46] LABS: INR 2.7; PROTHROMBIN TIME 29.3 SECONDS (11.8-14.0)
[2019-11-12 05:00] LABS: PLATELET COUNT, AUTOMATED 66 10^3/uL (150-450)
[2019-11-12] MEDS: oxyCODONE 5MG TAB PO PRN ×3 (05:44→21:12)
[2019-11-12] MEDS: LACTULOSE 20 GM/30 ML SYRUP UD PO SCH ×4 (05:44→23:35)
[2019-11-12 06:00] VITALS: BP 149/71
[2019-11-12] MEDS ORDERED: HEPARIN SOD (PORCINE) 5000UNITS/ML 1ML VIAL/SYRINGE SC SCH (06:00)
[2019-11-12] MEDS ORDERED: HumaLOG INSULIN (NovoLOG) PER UNIT SC SCH ×4 (06:00→21:00)
[2019-11-12] MEDS: ASPIRIN 81 MG ENTERIC TAB PO SCH (08:22)
[2019-11-12] MEDS: rifAXIMin 550 MG TAB (XIFAXAN) PO SCH ×2 (08:22→21:03)
[2019-11-12] MEDS: HumaLOG INSULIN (NovoLOG) PER UNIT SC SCH ×3 (08:22→17:19)
[2019-11-12] MEDS: LEVEMIR (INSULIN DETEMIR) 1 UNITS/0.01ML SC SCH (08:22)
[2019-11-12] MEDS: METOPROLOL TART 25 MG TABLET PO SCH (08:24)
[2019-11-12] MEDS: ATORVASTATIN 20 MG TAB PO SCH (08:25)
[2019-11-12 09:00] VITALS: BP 133/68
[2019-11-12] MEDS ORDERED: WARFARIN SOD 3MG TAB PO SCH (09:00)
[2019-11-12] MEDS ORDERED: lisinopriL 10 MG TAB PO SCH (09:00)
--- NOTE | 2019-11-12 11:56 | IPNPDOC ---
Text Note Date of Service The patient was seen on 11/12/19. NOTE S Per patient and significant other, he was handling a laundry bag when his knees suddenly gave out, causing him to land on his knees and back and hitting the back of his head against a door. He denied syncope, dizziness and LOC, but noted mild pain on the back of the head. He was quickly assisted by his significant other to get back up but she noted he was unusually weak and had some speech slurring. He was subsequently brought to the ED for evaluation. Today, she noted that patient's acute symptoms has resolved and he seems to be at baseline in the hospital room. However, she was concerned because since patient's admission in 03/2019 for sepsis and hepatic encephalopathy, patient's condition has progressively deteriorate, with increased forgetfulness during conversation, decreased in appetite and general deconditioning (ex. unable to get up as easily as before, patient uses walker at home). She is concerned if the deterioration will be permanent. He denied recent weightloss, loss of appetite, N/V, fever and urinary issues, but noted diarrhea for the past 2 weeks, feeling cold in the room and chronic weakness at the knee. He was able to have a BM this morning. Of note, Ms. Adwoa King's (pt's significant other) phone number has change and is different from medical records. It is now [phone]. Patient's contact has also changed to [phone]. ROS: CONSTITUTIONAL: Denies fever, fatigue, unexpected weight change, loss of appetite. HEENT: Denies headaches, dizziness. CARDIOVASCULAR: Denies chest pain, palpitations, dyspnea on exertion, edema. RESPIRATORY: Denies wheezing, dyspnea, cough or hemoptysis GASTROINTESTINAL: Denies nausea, vomiting, abdominal pain, constipation, melena, hematochezia, but noted diarrhea. GENITAOURINARY: Denies dysuria, hematuria, urinary frequency, incontinence or retention. SKIN: Denies skin changes. MUSCULOSKELETAL: Noted chronic pain in the knees and back, and chronic weakness in the knees. NEUROLOGICAL: Denies syncope. O PHYSICAL EXAMINATION: VITAL SIGNS: See below GENERAL APPEARANCE: 64 y/o M pt sitting on chair eating breakfast, in no acute distress. HEENT: NC, AT, EOMI, no scleral icterus, mucous membranes dry, no pharyngeal erythema. CARDIOVASCULAR: regular rate and rhythm with normal S1,S2. 3/6 Systolic murmur noted. LUNGS: CTAB with full breath sounds, no wheezes, crackles, or rhonchi. ABDOMEN: Soft, mild diffuse tenderness noted, non-distended, no masses. MUSCULOSKELETAL: Tenderness to light palpation over knees and lower back. EXTREMITIES: No swelling or edema. Strength 5/5 in all extremities except 4/5 on bilateral knee extension due to pain. NEUROLOGICAL: A&Ox4. CNIII-XII intact. No focal motor or sensory deficits. PSYCHIATRIC: Normal mood and affect EKG on 11/11/20192105 Impression: Sinus rhythm with L anterior fascicular block and LVH, rate of 61bpm IMAGIN11/11/2019 CT abd/pelvis: IMPRESSION: Limited study secondary to motion artifact. Given limitation of the motion artifact no acute finding is seen. Fatty enlarged liver. Status post cholecystectomy. CBD is enlarged measuring up to 13 mm without any CBD stones. Appendix is not seen. No secondary signs to suggest acute appendicitis. No bowel dilatation or obstruction. Moderate fecal loading in the colon. 11/11/2019 CXR: IMPRESSION: No acute findings. 11/11/[address] C-[address]: IMPRESSION: 1. Degenerative spondylosis of the cervical spine. 2. No fracture or subluxation. 11/11/[address]: IMPRESSION: No acute abnormality. MICROBIOLOGY: Please see below. A Mr. Francois Padilla is a 64 y/o M with hx of Hep C (unknown therapy status), hepatic cirrhosis (with multiple recent admissions for hepatic encephalopathy), multiple TIA (on warfarin), HTN, DM and CAD who presented with increasing level of confu nehemias and generalized weakness and was admitted for type B lactic acidosis and renal failure. P # Increasing level of confusion - Patient is A&Ox4 this morning and not fatigued. Was forgetful during interview. - Ms. King (pt's significant other, ) noted patient's acute symptoms (unusually weak with some speech slurring) from admission has resolve, but was concerned with pt's gradual deterioration (increased forgetfulness during conversation, decreased in appetite and general deconditioning) since his hospital admission from 03/2019. - AMS can be multifactorial, baseline mental status unknown, each addressed below: - Infectious etiologies: Patient afebrile and without leukocytosis, labs and imaging results inconsistent with acute infection. Negative UA, CT abd/pelvis and CXR. BCx pending - Metabolic etiologies: CMP within normal limits except hyperglycemia which appears chronic with a1c of 10.9. TSH normal. Lactic acidosis and hyperammonemia addressed below. - Vascular etiologies: Head CT w/o contrast ruled out acute intracranial process, EKG revealed sinus rhythm with L anterior fascicular block and LVH, rate of 61bpm and trop trended x2 and stable at 0.09 (appears to be chronically elevated between 0.06-0.17 since 12/2018). - CT head, C-spine, CXR, abd &pelvis all negative for acute trauma. - Hold delirium related home meds, Urine tox negative for recreational drug, ASA and acetaminophen - Patient reported hx of alcohol abuse, serum ethanol level <0.003, placed on CIWA protocol and Sz precaution, start folic acid and thiamine supplementation. # Type B lactic acidosis - Likely combination of ARF and chronic liver cirrhosis - Patient's lactic acid chronically elevated at baseline (3.7-4.2 for the past year) - Lactic acid improved to 4.6 after aggressive IVF - No evidence suggestive of infection noted, ruled out cellulitis, colitis, superficial/deep abscess - BCx pending - EF team reached out to Dr. Espinal (nephrology), no indication for dialysis at this time. - Cont to hold metformin # Acute renal failure - Creatinine improved from 1.42 to 1.01 after IV hydration - Continue to monitor # Type 2 DM - Patient hyperglycemic (553) on admission with a1c of 10.9 - Was on 1000 BID metformin and 20 units of Lantus QD - Cont to hold metformin and start SSI - Start insulin aspart 2 units AC with 10 units QD of insulin detemir - Start consistent carbohydrate diet. # Liver cirrhosis with chronic hyperammonemia, hx of hepatitis C and alcoholism - Mildly elevated AST - Serum ammonia level elevated at 54 (baseline appears to be around 120 from previous admission) - Unclear hepatitis C status - Patient denied recent weightloss or loss of appetite, and without imaging evidence of malignancy - Monitor I/O - Cont rifaximin and lactulose # Alcohol Abuse - Patient reported last alcohol use 3 weeks ago, was a 6 pack/day drinker - placed on CIWA protocol - Sz precaution - start thiamine and folic acid PO supplement # Hx of multiple TIA - Patient reported that he was started on coumadin since age of 27 and has had 15-25 episodes of TIA in the past. - Unable to verify with previous medical records. - Cont home dose coumadin. - INR at 2.7 # HTN - kidney function improved - Cont lisinopril #. Dilated CBD - CT: 13 mm, no stones seen - Bilirubin appears chronically elevated, patient without n/v, abdominal pain - Cont to monitor #. CAD s/p cardiac cath 12/2018 -Continue atorvastatin, metoprolol # Chronic Pain - Continue with home oxycodone, capsaicin. - Hold lyrica for now. # Weakness - Cont PT/OT # DVT prophylaxis - Patient already on warfarin VS,Fishbone, I+O VS, Fishbone, I+O Laboratory Tests 11/11/19 19:46 11/12/19 03:59 Vital Signs Date Time Temp Pulse Resp B/P (MAP) Pulse Ox O2 Delivery O2 Flow Rate FiO2 11/12/19 09:00 64 133/68 11/12/19 06:14 16 11/12/19 06:00 97.5 95 Room Air I&O- Last 24 Hours up to 6 AM 11/12/19 06:00 Intake Total 3370 ml Output Total 1400 ml Balance 1970 ml GME ATTESTATION GME ATTESTATION My faculty preceptor for this patient encounter was physically present during the encounter and was fully available. All aspects of the patient interview, examination, medical decision making process, and medical care plan development were reviewed and approved by the faculty preceptor. The faculty preceptor is aware and concurs with the plan as stated in the body of this note and will attest to such by his/her cosignature. ATTENDING NOTE Patient was seen and examined by me personally with the residents and I agree with the above assessment and plan CODY WILSON OMS-3 Nov 12, 2019 11:56 LETI BACH MD Nov 17, 2019 14:40
[2019-11-12] MEDS: THIAMINE 100 MG TAB PO SCH (12:27)
[2019-11-12] MEDS: FOLIC ACID 1 MG TAB PO SCH (12:27)
[2019-11-12] MEDS: NovoLOG MIX 70/30 PER UNIT SC SCH ×2 (12:28→17:19)
[2019-11-12 14:00] VITALS: BP 130/68
[2019-11-12 18:36] VITALS: BP 130/68
[2019-11-12] MEDS ORDERED: THIAMINE 200MG/2ML VIAL (J3411 PER 100MG) IM ONE (20:00)
[2019-11-12] MEDS ORDERED: WARFARIN SOD 2MG TAB PO SCH (21:00)
[2019-11-12 22:00] VITALS: BP 119/52
[2019-11-13] VITALS: BP 119/52
[2019-11-13] MEDS: LACTULOSE 20 GM/30 ML SYRUP UD PO SCH ×2 (05:20→11:52)
[2019-11-13 06:00] VITALS: BP 135/67
[2019-11-13 06:08] LABS: BASO # 0.1 10^3/uL (0.0-0.2); BASO % 2.3 % (0.0-1.0); EOS # 0.2 10^3/uL (0.0-0.5); EOS % 6.2 % (0.0-3.0); HEMATOCRIT 30.1 % (42.0-52.0); HEMOGLOBIN 10.7 g/dl (13.5-17.5); LYMPH # 1.8 10^3/uL (1.5-5.0); LYMPH % 47.2 % (24.0-44.0); MEAN CORPUSCULAR HEMOGLOBIN 33.6 pg (27.0-33.0); MEAN CORPUSCULAR HGB CONC 35.5 g/dl (32.0-36.5); MEAN CORPUSCULAR VOLUME 94.7 fl (80.0-96.0); MONO # 0.6 10^3/uL (0.0-0.8); MONO % 14.2 % (0.0-5.0); NEUTROPHILS # 1.2 10^3/uL (1.5-8.5); NEUTROPHILS % 30.1 % (36.0-66.0); RED BLOOD COUNT 3.18 10^6/uL (4.30-6.10); WHITE BLOOD COUNT 3.9 10^3/uL (4.0-10.0)
[2019-11-13 06:09] LABS: PLATELET COUNT, AUTOMATED 58 10^3/uL (150-450)
[2019-11-13 06:14] LABS: INR 3.25; PROTHROMBIN TIME 33.9 SECONDS (11.8-14.0)
[2019-11-13 06:30] LABS: ALBUMIN 2.3 GM/DL (3.2-5.2); ALT/SGPT 57 U/L (12-78); BILIRUBIN,TOTAL 1.3 MG/DL (0.2-1.0); BLOOD UREA NITROGEN 4 MG/DL (7-18); CALCIUM LEVEL 8.1 MG/DL (8.8-10.2); CARBON DIOXIDE LEVEL 21 MEQ/L (21-32); CHLORIDE LEVEL 115 MEQ/L (98-107); CREATININE FOR GFR 0.83 MG/DL (0.70-1.30); GLOMERULAR FILTRATION RATE > 60.0 (>49); GLUCOSE, FASTING 211 MG/DL (70-100); POTASSIUM SERUM 3.4 MEQ/L (3.5-5.1); SODIUM LEVEL 143 MEQ/L (136-145); TOTAL PROTEIN 5.3 GM/DL (6.4-8.2)
[2019-11-13] MEDS ORDERED: POTASSIUM CHLORIDE 10 MEQ SR TABLET PO ONE (07:30)
[2019-11-13] MEDS: oxyCODONE 5MG TAB PO PRN (07:46)
[2019-11-13] MEDS: NovoLOG MIX 70/30 PER UNIT SC SCH (08:12)
[2019-11-13] MEDS: HumaLOG INSULIN (NovoLOG) PER UNIT SC SCH (08:12)
[2019-11-13] MEDS: ATORVASTATIN 20 MG TAB PO SCH (08:13)
[2019-11-13] MEDS: LEVEMIR (INSULIN DETEMIR) 1 UNITS/0.01ML SC SCH (08:13)
[2019-11-13 08:14] VITALS: BP 135/67
[2019-11-13] MEDS: FOLIC ACID 1 MG TAB PO SCH (08:14)
[2019-11-13] MEDS: THIAMINE 100 MG TAB PO SCH (08:14)
[2019-11-13] MEDS: ASPIRIN 81 MG ENTERIC TAB PO SCH (08:14)
[2019-11-13] MEDS: rifAXIMin 550 MG TAB (XIFAXAN) PO SCH (08:14)
[2019-11-13] MEDS: METOPROLOL TART 25 MG TABLET PO SCH (08:15)
[2019-11-13] MEDS ORDERED: lisinopriL 10 MG TAB PO SCH (09:00)
[2019-11-13] MEDS ORDERED: WARFARIN SOD 4MG TAB PO SCH (09:00)
[2019-11-13] MEDS ORDERED: WARF-20 PO (10:41)
--- NOTE | 2019-11-13 15:10 | DS.PDOC ---
Discharge Summary General Date of Admission Nov 12, 2019 at 02:11 Date of Discharge 11/13/2019 Discharge Summary PROCEDURES PERFORMED DURING STAY: [None]. ADMITTING DIAGNOSES: 1. Type B lactic acidosis 2/2 to metformin use 2. Metabolic encephalopathy likely multifactorial due to dehydration, uremia, hyperglycemia, hyperammonemia 3 Mild non-anion gap metabolic acidosis 4 Acute renal failure 5 Weakness likely multifactorial (acidosis, hyperglycemia, MAYUR, dehydration) 6. Type 2 DM 7. Liver cirrhosis 8. Elevated troponin, chronic 9. Hyperammonemia 10. Dilated CBD 11. HTN 12. CAD s/p cardiac cath 12/2018 13. Chronic Pain 14. Hx of questionable TIA DISCHARGE DIAGNOSES: 1. Type B lactic acidosis likely 2/2 MAYUR vs liver cirrhosis 2. Acute renal failure, resolved 3. Type 2 DM 4. Liver cirrhosis with chronic hyperammonemia, hx of hepatitis C and alcoholism 5. Alcohol Abuse 6. Hx of multiple TIA 7. HTN 8. Dilated CBD 9. CAD s/p cardiac cath 12/2018 10. Chronic Pain 11. Supratherapeutic INR. COMPLICATIONS/CHIEF COMPLAINT: Acute Kidney Failure, Ams. HISTORY OF PRESENT ILLNESS: Patient is a 64 yo male with PMH of alcohol use brought in by his due AMS/increasing level of confusing and generalized weakness. It was reported that patient was significantly altered on arrival and subsequent lab work only revealed a lactic acidosis, elevated blood glucose, and a mild MAYUR. It was noted that upon admission, pt reported multi-month history of generalized weakness and earlier in the day of the admission he collapsed to his knees with no LOC, head injury and no inciting event or symptoms including chest pain, palpitations, or SOB. He is not a very good historian and was unable to give further details surrounding the event. HOSPITAL COURSE: Patient was admitted to [facility] and received IV fluid hydration for elevated lactic acid, and lactic acidosis have returned to around baseline. His work ups including negative UA, CT abd/pelvis and CXR, CMP within normal limits except hyperglycemia with a1c of 10.9, pt was started on long acting and short acting insulin as well as SS insulin inpt. Hyperammonemia have returned to around baseline. Head CT showed acute intracranial process, EKG revealed sinus rhythm with L anterior fascicular block and LVH. CT head, C-spine, CXR, abd &pelvis all negative for acute trauma. Patient has been placed on CIWA with seizure precaution as well as started on folic acid and thiamine supplementation. Team discussed with Ms. King (pt's significant other) on 11/12/2019 and noted patient's acute symptoms (increased weakness with some speech slurring) from admission has resolve, but was concerned with pt's gradual deterioration (increased forgetfulness during conversation, decreased in appetite and general deconditioning) since his hospital admission from 03/2019. Patient today reported that he has been requiring chronic walker use for 2 years. Patient is A&Ox4 this morning and is able to carry a normal conversation. DISCHARGE MEDICATIONS: Please see below. ALLERGIES: Please see below. PHYSICAL EXAMINATION ON DISCHARGE: VITAL SIGNS: See below GENERAL APPEARANCE: pt sitting on bed, cooperative, pleasant in no acute distress. HEENT: NC, AT, no scleral icterus, mucous membranes moist and pink CARDIOVASCULAR: regular rate and rhythm with normal S1,S2 LUNGS: CTAB with full breath sounds, no wheezes, crackles, or rhonchi. ABDOMEN: Soft, bowel sound present in all 4 quadrants EXTREMITIES: No swelling or edema NEUROLOGICAL: A&Ox4 PSYCHIATRIC: Normal mood and affect, mood stable LABORATORY DATA: Please see below. IMAGING:EKG on 11/11/20192105 Impression: Sinus rhythm with L anterior fascicular block and LVH, rate of 61bpm IMAGIN11/11/2019 CT abd/pelvis: IMPRESSION: Limited study secondary to motion artifact. Given limitation of the motion artifact no acute finding is seen. Fatty enlarged liver. Status post cholecystectomy. CBD is enlarged measuring up to 13 mm without any CBD stones. Appendix is not seen. No secondary signs to suggest acute appendicitis. No bowel dilatation or obstruction. Moderate fecal loading in the colon. 11/11/2019 CXR: IMPRESSION: No acute findings. 11/11/[address]: IMPRESSION: 1. Degenerative spondylosis of the cervical spine. 2. No fracture or subluxation. 11/11/[address]: IMPRESSION: No acute abnormality PROGNOSIS: [Fair] ACTIVITY: [As tolerated]. DIET: Consistent carbohydrate diet DISPOSITION: 01 Home, Self-Care. DISCHARGE PLAN AND INSTRUCTIONS: 1. Patient will follow up with his PCP in 3 days or upcoming Sunday 2. Patient will hold his Warfarin for tomorrow morning, and starting Warfarin 4mg QD starting the day after tomorrow 3. INR in 3 days or next Sunday for possible Warfarin dose adjustment. ITEMS TO FOLLOWUP ON ON OUTPATIENT: 1. [INR level]. 2. Alcohol use 3. Imbalance DISCHARGE CONDITION: [Improved]. TIME SPENT ON DISCHARGE: Greater than [35] minutes. Vital Signs/I&Os Vital Signs Date Time Temp Pulse Resp B/P (MAP) Pulse Ox O2 Delivery O2 Flow Rate FiO2 11/13/19 08:39 16 11/13/19 08:15 72 11/13/19 08:14 135/67 11/13/19 06:00 98.2 95 11/12/19 14:00 Room Air I&O- Last 24 Hours up to 6 AM 11/13/19 06:00 Intake Total 2645 ml Output Total 500 ml Balance 2145 ml Laboratory Data Labs 24H Laboratory Tests 2 11/12/19 16:32: Bedside Glucose (Misc Panel) 223H 11/12/19 20:53: Bedside Glucose (Misc Panel) 158H 11/13/19 05:33: Immature Granulocyte % (Auto) 0.0, Neutrophils (%) (Auto) 30.1L, Lymphocytes (%) (Auto) 47.2H, Monocytes (%) (Auto) 14.2H, Eosinophils (%) (Auto) 6.2H, Basophils (%) (Auto) 2.3H, Neutrophils # (Auto) 1.2L, Lymphocytes # (Auto) 1.8, Monocytes # (Auto) 0.6, Eosinophils # (Auto) 0.2, Basophils # (Auto) 0.1, Nucleated Red Blood Cells % (auto) 0.0, Immature Platelet Fraction 9.8, Prothrombin Time 33.9H, Prothromb Time International Ratio 3.25, Anion Gap 7L, Glomerular Filtration Rate > 60.0, Calcium Level 8.1L, Total Bilirubin 1.3H, Aspartate Amino Transf (AST/SGOT) 90H, Alanine Aminotransferase (ALT/SGPT) 57, Alkaline Phosphatase 96, Total Protein 5.3L, Albumin 2.3L, Albumin/Globulin Ratio 0.8 CBC/BMP Laboratory Tests 11/13/19 05:33 FSBS Laboratory Tests Test 11/12/19 16:32 11/12/19 20:53 Range/Units Bedside Glucose (Misc Panel) 223 158 80-115 MG/DL Microbiology Microbiology 11/11/19 Blood Culture - Preliminary, Resulted No growth after 24 hours . All specim... 9/8/20 Blood Culture - Preliminary, Resulted No growth after 24 hours . All specim... Discharge Medications Scheduled Aspirin (Aspirin EC) 81 Mg Tablet.dr, 81 MG PO DAILY, (Reported) Atorvastatin Calcium (Atorvastatin Calcium) 40 Mg Tablet, 40 MG PO DAILY, (Reported) Insulin Glargine (Lantus) 100 Unit/1 Ml Vial, 20 UNITS SC DAILY, (Reported) Lactulose (Lactulose) 10 Gm/15 Ml Solution, 40 ML PO Q6H, (Reported) Lisinopril (Lisinopril) 10 Mg Tablet, 10 MG PO DAILY, (Reported) Metoprolol Tartrate (Metoprolol Tartrate) 25 Mg Tablet, 12.5 MG PO DAILY, (Reported) Pregabalin (Lyrica) 150 Mg Capsule, 150 MG PO BID, (Reported) Rifaximin (Xifaxan) 550 Mg Tablet, 550 MG PO BID, (Reported) Warfarin Sodium (Warfarin Sodium) 4 Mg Tablet, 4 MG PO DAILY Scheduled PRN Capsaicin (Capsaicin) 0.025% Cream..g., 1 DOSE TOP BID PRN for PAIN, (Reported) APPLY TO BACK Carboxymethylcellulose Sodium (Refresh Tears) 15 Ml Drops, 1 DROP OU TID PRN for DRY EYES, (Reported) Oxycodone HCl (Roxicodone) 5 Mg Tablet, 5 MG PO Q4H PRN for PAIN, (Reported) Allergies Coded Allergies: egg (Verified Allergy, Unknown, 04/07/19) gabapentin (Verified Adverse Reaction, Intermediate, nausea vomiting, 04/03/19) spironolactone (Verified Adverse Reaction, Unknown, gynecomastia, 12/19/18) GME ATTESTATION GME ATTESTATION My faculty preceptor for this patient encounter was physically present during the encounter and was fully available. All aspects of the patient interview, examination, medical decision making process, and medical care plan development were reviewed and approved by the faculty preceptor. The faculty preceptor is aware and concurs with the plan as stated in the body of this note and will attest to such by his/her cosignature. ATTENDING NOTE Patient was seen and examined by me personally with the residents and I agree with the above assessment and plan BENNY JUDD DO Nov 13, 2019 15:10 LETI BACH MD Nov 17, 2019 14:45
--- NOTE | 2019-11-13 17:33 | ECGEPIP ---
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
== END 2019-11-13 12:13 | disposition home or self-care (01) | DRG 682 ==
LOC: M ED 17:10 → M ED INP 11-12 02:11 → M MSPAV 11-12 04:22
PROVIDERS: ADMIT Internal Medicine; ATTEND Internal Medicine
DX: N17.9 Acute kidney failure, unspecified (principal); G93.41 Metabolic encephalopathy; E87.2 Acidosis; E72.20 Disorder of urea cycle metabolism, unspecified; E11.65 Type 2 diabetes mellitus with hyperglycemia; K70.30 Alcoholic cirrhosis of liver without ascites; I25.10 Atherosclerotic heart disease of native coronary artery without angina pectoris; Z86.73 Personal history of transient ischemic attack (TIA), and cerebral infarction without residual deficits; I10 Essential (primary) hypertension; E86.0 Dehydration; Z95.2 Presence of prosthetic heart valve; B18.2 Chronic viral hepatitis C; G89.29 Other chronic pain; Z79.82 Long term (current) use of aspirin; Z79.899 Other long term (current) drug therapy; Z88.8 Allergy status to other drugs, medicaments and biological substances; Z91.012 Allergy to eggs; F17.200 Nicotine dependence, unspecified, uncomplicated

== ENCOUNTER 2019-11-24 15:16 | Inpatient (IN) | payer OTHER ==
[~2019-11-24] VITALS: Ht 177.8 cm; Wt 65.2 kg
[~2019-11-24 15:16] MED LIST changes: +ASPI-161 PO; +ATOR40TA75 PO; +WARF-20 PO; +XIFA550T PO
--- NOTE | 2019-11-24 15:51 | REPVR ---
PROCEDURE INFORMATION: Exam: CT Head Without Contrast Exam date and time: 11/24/2019 3:24 PM Age: 64 years old Clinical indication: Injury or trauma; Fall; Initial encounter; Blunt trauma (contusions or hematomas); Additional info: Head injury on warfarin TECHNIQUE: Imaging protocol: Computed tomography of the head without contrast. Radiation optimization: All CT scans at this facility use at least one of these dose optimization techniques: automated exposure control; mA and/or kV adjustment per patient size (includes targeted exams where dose is matched to clinical indication); or iterative reconstruction. COMPARISON: CT Head without contrast 11/11/2019 5:22 PM FINDINGS: Tubes, catheters and devices: Previous left zygomatofrontal arch repair with metallic plate and screws. Brain: Chronic small cortical/subcortical infarction left parietal lobe. Moderate hypoattenuating foci are noted in the anterior lateral ventricular periventricular white matter bilaterally. No intracranial hemorrhage. No mass or acute cortical infarction identified. Ventricles: Prominence of the ventricular system and subarachnoid spaces is consistent with the patient's age of 64 years. Bones/joints: Unremarkable. No acute fracture. Paranasal sinuses: Visualized sinuses are unremarkable. No fluid levels. Mastoid air cells: Visualized mastoid air cells are well aerated. Vasculature: Atherosclerotic calcifications are present involving the carotid artery siphons bilaterally. Soft tissues: Unremarkable. IMPRESSION: 1. Chronic small cortical/subcortical infarction left parietal lobe. 2. Age appropriate supratentorial and infratentorial atrophy. 3. Moderate chronic white matter microvascular ischemic disease. 4. No acute intracranial injury identified. Electronically signed by: Ricco Alvarez On 11/24/2019 15:51:15 PM
--- NOTE | 2019-11-24 16:41 | REPVR ---
PROCEDURE INFORMATION: Exam: XR Chest, 1 View Exam date and time: 11/24/2019 3:46 PM Age: 64 years old Clinical indication: Other: Head injury, altered mental status; Additional info: Altered mental status TECHNIQUE: Imaging protocol: XR of the chest Views: Frontal portable sitting upright view of the chest. COMPARISON: CR Chest, 2 view PA, Lat 11/11/2019 7:23 PM FINDINGS: Tubes, catheters and devices: EKG leads are present overlying the chest. Lungs: The pulmonary vasculature is normal. The lungs are clear bilaterally. Pleural space: Stable left costophrenic angle pleural fibrosis. No definite pleural effusion. No pneumothorax. Heart/Mediastinum: The heart is normal in size and contour. Mediastinum: Stable. Bones/joints: Stable. IMPRESSION: No acute cardiopulmonary abnormality identified. Electronically signed by: Ricco Alvarez On 11/24/2019 16:41:13 PM
[2019-11-24 17:00] LABS: BASO # 0.1 10^3/uL (0.0-0.2); BASO % 2.3 % (0.0-1.0); EOS # 0.2 10^3/uL (0.0-0.5); EOS % 5.6 % (0.0-3.0); HEMATOCRIT 32.9 % (42.0-52.0); HEMOGLOBIN 11.7 g/dl (13.5-17.5); LYMPH # 1.3 10^3/uL (1.5-5.0); LYMPH % 30.5 % (24.0-44.0); MEAN CORPUSCULAR HEMOGLOBIN 33.6 pg (27.0-33.0); MEAN CORPUSCULAR HGB CONC 35.6 g/dl (32.0-36.5); MEAN CORPUSCULAR VOLUME 94.5 fl (80.0-96.0); MONO # 0.6 10^3/uL (0.0-0.8); MONO % 13.8 % (0.0-5.0); NEUTROPHILS % 47.1 % (36.0-66.0); RED BLOOD COUNT 3.48 10^6/uL (4.30-6.10); WHITE BLOOD COUNT 4.3 10^3/uL (4.0-10.0)
[2019-11-24 17:01] LABS: PLATELET COUNT, AUTOMATED 75 10^3/uL (150-450)
[2019-11-24] MEDS ORDERED: NS 1,000 ML IV ONE (17:15)
[2019-11-24 17:25] LABS: AMPHETAMINES LEVEL URINE NEGATIVE (NEGATIVE); BARBITURATES URINE NEGATIVE (NEGATIVE); BENZODIAZEPINES URINE NEGATIVE (NEGATIVE); CANNABINOIDS URINE NEGATIVE (NEGATIVE); COCAINE METABOLITE URINE NEGATIVE (NEGATIVE); METHADONE URINE NEGATIVE (NEGATIVE); OPIATES URINE POSITIVE (NEGATIVE); PHENCYCLIDINE URINE NEGATIVE (NEGATIVE)
--- NOTE | 2019-11-24 17:29 | REPVR ---
PROCEDURE INFORMATION: Exam: XR Right Hip Exam date and time: 11/24/2019 4:32 PM Age: 64 years old Clinical indication: Hip pain; Right hip; Additional info: Fall, foot pain TECHNIQUE: Imaging protocol: XR Right hip . Views: AP neutral and frogleg views. COMPARISON: CT ABD/PEL W/IV ORAL CONTRAS 11/11/2019 11:20 PM FINDINGS: Bones/joints: Unremarkable. No acute fracture. Soft tissues: Unremarkable. IMPRESSION: No acute findings. Electronically signed by: Ricco Alvarez On 11/24/2019 17:29:13 PM
--- NOTE | 2019-11-24 17:32 | REPVR ---
PROCEDURE INFORMATION: Exam: XR Right Foot Complete Exam date and time: 11/24/2019 4:32 PM Age: 64 years old Clinical indication: Pain; Foot; Bilateral; Additional info: Fall, foot pain TECHNIQUE: Imaging protocol: XR Right foot. Views: Frontal, lateral, and 2 oblique views. COMPARISON: No relevant prior studies available. FINDINGS: Bones/joints: Dorsal lateral articular marginal hypertrophy of the talonavicular articulation. A small plantar calcaneal ossified spur is present. No acute bony abnormality identified. Soft tissues: Normal. IMPRESSION: 1. Primary hindfoot-midfoot osteoarthritis. 2. Plantar calcaneal spur. 3. No acute bony injury identified. PROCEDURE INFORMATION: Exam: XR Left Foot Complete Exam date and time: 11/24/2019 4:32 PM Age: 64 years old Clinical indication: Pain; Foot; Bilateral; Additional info: Fall, foot pain TECHNIQUE: Imaging protocol: XR Left foot. Views: Frontal, lateral, and 2 oblique views. COMPARISON: No relevant prior studies available. FINDINGS: Bones/joints: A small plantar calcaneal ossified spur is present. No acute bony abnormality identified. Soft tissues: Normal. IMPRESSION: 1. Plantar calcaneal spur. 2. No acute bony injury identified. Electronically signed by: Rcico Alvarez On 11/24/2019 17:32:05 PM
--- NOTE | 2019-11-24 17:38 | REPVR ---
PROCEDURE INFORMATION: Exam: XR Pelvis Exam date and time: 11/24/2019 4:32 PM Age: 64 years old Clinical indication: Hip pain; Right hip; Additional info: Fall, foot pain TECHNIQUE: Imaging protocol: XR pelvis. Views: AP single view. COMPARISON: CT ABD/PEL W/IV ORAL CONTRAS 11/11/2019 11:20 PM FINDINGS: Bones/joints: No acute bony abnormality identified. Soft tissues: Unremarkable. IMPRESSION: No acute bony injury identified. Electronically signed by: Ricco Alvarez On 11/24/2019 17:37:25 PM
[2019-11-24 18:05] LABS: ACETAMINOPHEN LEVEL < 2.0 UG/ML (10.0-30.0); ALBUMIN 2.9 GM/DL (3.2-5.2); ALT/SGPT 82 U/L (12-78); BILIRUBIN,DIRECT 0.7 MG/DL (0.0-0.2); BILIRUBIN,TOTAL 2.9 MG/DL (0.2-1.0); BLOOD UREA NITROGEN 6 MG/DL (7-18); CALCIUM LEVEL 8.4 MG/DL (8.8-10.2); CARBON DIOXIDE LEVEL 22 MEQ/L (21-32); CHLORIDE LEVEL 102 MEQ/L (98-107); CREATININE FOR GFR 1.29 MG/DL (0.70-1.30); ETHYL ALCOHOL (ETHANOL) < 0.003 % (0.000-0.010); GLOMERULAR FILTRATION RATE > 60.0 (>49); GLUCOSE, FASTING 601 MG/DL (70-100); POTASSIUM SERUM 3.6 MEQ/L (3.5-5.1); SALICYLATE LEVEL < 1.7 MG/DL (5.0-30.0); SODIUM LEVEL 136 MEQ/L (136-145); TOTAL PROTEIN 6.6 GM/DL (6.4-8.2)
[2019-11-24] MEDS ORDERED: HumuLIN R (REGULAR) INSULIN (NovoLIN R) **100U/ML** PER UNIT IV ONE (18:15)
--- NOTE | 2019-11-24 20:34 | ECGEPIP ---
[facility] - ED Test Date: 2019-11-24 Pat Name: JAXON KANG Department: Room: - Gender: Male Vehicle Dynamics Engineer: irena joseph : 1955 Requested By: Trae Fonseca Order Number: [id number] Reading MD: Sveta Ramos Measurements Intervals [place] Rate: 60 P: 45 [place]: 198 QRS: -52 QRSD: 92 T: 33 QT: 422 QTc: 422 Interpretive Statements SINUS RHYTHM LEFT ANTERIOR FASCICULAR BLOCK POSSIBLE LEFT VENTRICULAR HYPERTROPHY NONSPECIFIC T-WAVE ABNORMALITY SIMILAR 11/11/19 Electronically Signed on 11-24-2019 20:34:14 EDT by Sveta Ramos
[2019-11-24] MEDS ORDERED: PREGABALIN 75 MG CAP(LYRICA) PO SCH (21:00)
[2019-11-24] MEDS ORDERED: LEVEMIR (INSULIN DETEMIR) 1 UNITS/0.01ML SC SCH (21:00)
[2019-11-24] MEDS ORDERED: THIAMINE 200MG/2ML VIAL (J3411 PER 100MG) IV SCH (21:00)
[2019-11-24] MEDS ORDERED: HumaLOG INSULIN (NovoLOG) PER UNIT SC SCH (21:00)
[2019-11-24] MEDS ORDERED: WARF-20 PO (21:09)
[2019-11-24] MEDS ORDERED: CAPSAICIN 0.025% CR 60 GM TOP PRN (21:30)
[2019-11-24] MEDS ORDERED: oxyCODONE 5MG TAB PO PRN (21:30)
[2019-11-24 21:42] LABS: INR 2.84; PROTHROMBIN TIME 30.5 SECONDS (12.5-14.3)
--- NOTE | 2019-11-24 22:26 | HPEPDOC ---
[facility] Medical History & Physical Date of Admission Nov 24, 2019 Date of Service: Nov 24, 2019 Attending Physician: LUKAS LAWTON MD History and Physical CHIEF COMPLAINT: AMS HISTORY OF PRESENT ILLNESS: Francois Padilla is a 64 YO M with liver cirrhosis and CAD who presents with altered mental status. The patient reports he lives at home with his , who noticed he has become more and more confused over the past several days. The patient reports that he has also noticed he has become more forgetful and has forgotten to take his medications. He also reports difficulty maintaining his balance and falls at home. He denies any recent fevers, chills, n/v/d. He reports that he has been hospitalized for this reason several times before. On arrival to the ED, he was found to have glucose level 600 and lactic acid of 5.1. His ammonia level was also found to be elevated at 52. PAST MEDICAL HISTORY: Coronary artery disease s/p RI in 2018 and [facility], no stents Hepatitis C, treated 3 years ago by PCP in [place] Cirrhosis (likely 2/2 Hep C vs EtOH use) Hypertension Diabetes Mellitus on insulin Hx of hepatic encephalopathy Hx of TIA Hx of endocarditis PAST SURGICAL HISTORY: Cholecystectomy appendectomy ex-lap for liver laceration [facility] SOCIAL HISTORY: Denies alcohol use currently, states he has not had any alcohol in recently, previous 6 pack/day drinker, states he quit smoking 20 years ago, denies illicit drug use including marijuana, heroin, cocaine, PCP. FAMILY HISTORY: No significant family history. ALLERGIES: Please see below. REVIEW OF SYSTEMS: Constitutional: Denies weight loss, change in appetite, or recent trauma Eyes: No visual changes or eye pain Ears, Nose, Throat: Denies nose bleeds, or difficulty swallowing Cardiovascular: Denies chest pain, sweating, or orthopnea Respiratory: Denies wheezing, or shortness of breath, admits to chronic non- productive cough GI: Teofilo nausea, vomiting, abdominal pain, diarrhea or constipation : Denies pain with urination or frequency Musculoskeletal: Admits to bilateral joint pain in ankles, knees, hips, and shoulders. Admits to generalized weakness. Neuro / Psych: Denies muscle weakness or sensory loss Skin: No skin rashes noted PHYSICAL EXAMINATION: VITAL SIGNS: Temperature 98.8, pulse 57, respiratory rate 20, blood pressure 158/80, pulse oximetry 99% on room air. GENERAL APPEARANCE: laying in bed, calm, cooperative, NAD HEENT: NC/AT, adentulous, EOMI, PERRL, MMM CARDIOVASCULAR: 3/6 INOCENCIO in RUSB, no rubs/gallops, RRR LUNGS: Clear to auscultation bilaterally, no adventitious breath sounds ABDOMEN: Large healed midline scar, non-tender to palpation all 4 quadrants, +BS, no organomegaly MUSCULOSKELETAL: moves all extremities well EXTREMITIES: no clubbing/cyanosis/edema NEUROLOGICAL: No obvious focal deficits PSYCHIATRIC: Awake, alert and oriented only to time and person, not to place. Very talkative, normal mood/affect SKIN: Warm, well-perfused, no obvious rashes LABORATORY DATA: See below. IMAGING: HEAD CT: IMPRESSION: 1. Chronic small cortical/subcortical infarction left parietal lobe. 2. Age appropriate supratentorial and infratentorial atrophy. 3. Moderate chronic white matter microvascular ischemic disease. 4. No acute intracranial injury identified. CXR: IMPRESSION: No acute cardiopulmonary abnormality identified. PELVIS XR: IMPRESSION: No acute bony injury identified. HIP XR: IMPRESSION: No acute findings. FOOT XR: IMPRESSION: 1. Plantar calcaneal spur. 2. No acute bony injury identified. MICROBIOLOGY: Please see below. ASSESSMENT: Francois Padilla is a 64 YO M with hepatic cirrhosis and CAD who presented with altered mental status, confusion, falls and gait instability found to have hyperglycemia, hyperammonemia and lactic acidosis concerning for Wernicke's encephalopathy vs acute metabolic encephalopathy. . PLAN: 1. Acute metabolic encephalopathy: likely 2/2 hyperammonemia. Concern for Wernicke's encephalopathy given gait instability, confusion, confabulation. -Ammonia found to be 52. I have restarted home dose of Lactulose -Start high dose Thiamin IV 250mg TID for 7 days -Head CT negative for any acute abnormality -Vitamin B1 level pending -Will hold Lyrica as it has been shown to worsen AMS in acute setting 2. Hyperglycemia: likely in setting of medication noncompliance -Continue home Levemir 20U QHS -SSI + hypoglycemic protocol 3. History of liver cirrhosis (2/2 HepC vs EtOH abuse): Has mild tranaminitis -Continue home Rifaximin, Lactulose -Holding Statin for time being 4. HTN: -Continue home Metoprolol, Lisinopril 5. Gait instability: -PT/OT eval ordered 6. Hx of CVA/TIA: -Currently on Warfarin. Will check INR DVT ppx: On Warfarin CODE STATUS: FULL CODE Vital Signs Vital Signs Date Time Temp Pulse Resp B/P (MAP) Pulse Ox O2 Delivery O2 Flow Rate FiO2 11/24/19 19:16 57 99 11/24/19 19:15 158/80 (106) 11/24/19 18:01 20 11/24/19 15:17 98.8 Room Air Laboratory Data Labs 24H Laboratory Tests 2 11/24/19 16:39: Immature Granulocyte % (Auto) 0.7, Neutrophils (%) (Auto) 47.1, Lymphocytes (%) (Auto) 30.5, Monocytes (%) (Auto) 13.8H, Eosinophils (%) (Auto) 5.6H, Basophils (%) (Auto) 2.3H, Neutrophils # (Auto) 2.0, Lymphocytes # (Auto) 1.3L, Monocytes # (Auto) 0.6, Eosinophils # (Auto) 0.2, Basophils # (Auto) 0.1, Nucleated Red Blood Cells % (auto) 0.0, Immature Platelet Fraction 11.0H, Anion Gap 12, Glomerular Filtration Rate > 60.0, Lactic Acid Level 5.1*H, Calcium Level 8.4L, Total Bilirubin 2.9H, Direct Bilirubin 0.7H, Aspartate Amino Transf (AST/SGOT) 79H, Alanine Aminotransferase (ALT/SGPT) 82H, Alkaline Phosphatase 124H, Ammonia 52H, Total Protein 6.6, Albumin 2.9L, Albumin/Globulin Ratio 0.8, Thyroid Stimulating Hormone (TSH) 2.240, Salicylates Level < 1.7L, Acetaminophen Level < 2.0L, Ethyl Alcohol Level < 0.003 11/24/19 16:44: Urine Color YELLOW, Urine Appearance CLEAR, Urine pH 6.0, Urine Specific Meno 1.033, Urine Protein NEGATIVE, Urine Glucose (UA) 3+H, Urine Ketones TRACEH, Urine Blood 1+H, Urine Nitrite NEGATIVE, Urine Bilirubin NEGATIVE, Urine Urobilinogen 0.2, Urine Leukocyte Esterase NEGATIVE, Urine WBC (Auto) 2, Urine RBC (Auto) 3, Urine Hyaline Casts (Auto) 0, Urine Bacteria (Auto) NEGATIVE, Urine Squamous Epithelial Cells 0, Urine Sperm (Auto) , Urine Opiates Screen POSITIVEH, Urine Methadone Screen NEGATIVE, Urine Barbiturates Screen NEGATIVE, Urine Phencyclidine Screen NEGATIVE, Urine Amphetamines Screen NEGATIVE, Urine Benzodiazepines Screen NEGATIVE, Urine Cocaine Metabolite Screen NEGATIVE, Urine Cannabinoids Screen NEGATIVE 11/24/19 19:52: Bedside Glucose (Misc Panel) 397H 11/24/19 21:35: Prothrombin Time 30.5H, Prothromb Time International Ratio 2.84 CBC/BMP Laboratory Tests 11/24/19 16:39 Microbiology Microbiology 11/24/19 Blood Culture, Received Pending 11/24/19 Blood Culture, Received Pending Home Medications Scheduled Aspirin (Aspirin EC) 81 Mg Tablet.dr, 81 MG PO DAILY Atorvastatin Calcium (Atorvastatin Calcium) 40 Mg Tablet, 40 MG PO DAILY Insulin Glargine (Lantus) 100 Unit/1 Ml Vial, 20 UNITS SC QHS Lactulose (Lactulose) 10 Gm/15 Ml Solution, 40 ML PO Q6H Lisinopril (Lisinopril) 10 Mg Tablet, 10 MG PO DAILY Metoprolol Tartrate (Metoprolol Tartrate) 25 Mg Tablet, 12.5 MG PO DAILY Pregabalin (Lyrica) 150 Mg Capsule, 150 MG PO BID Rifaximin (Xifaxan) 550 Mg Tablet, 550 MG PO BID Warfarin Sodium (Warfarin Sodium) 4 Mg Tablet, 4 MG PO DAILY Scheduled PRN Capsaicin (Capsaicin) 0.025% Cream..g., 1 DOSE TOP BID PRN for PAIN APPLY TO BACK Carboxymethylcellulose Sodium (Refresh Tears) 15 Ml Drops, 1 DROP OU TID PRN for DRY EYES Oxycodone HCl (Roxicodone) 5 Mg Tablet, 5 MG PO Q4H PRN for PAIN Allergies Coded Allergies: egg (Verified Allergy, Unknown, 04/07/19) gabapentin (Verified Adverse Reaction, Intermediate, nausea vomiting, 04/03/19) spironolactone (Verified Adverse Reaction, Unknown, gynecomastia, 12/19/18) A-FIB/CHADSVASC A-FIB History Current/History of A-Fib/PAF?: No GME ATTESTATION GME ATTESTATION My faculty preceptor for this patient encounter was physically present during the encounter and was fully available. All aspects of the patient interview, examination, medical decision making process, and medical care plan development were reviewed and approved by the faculty preceptor. The faculty preceptor is aware and concurs with the plan as stated in the body of this note and will attest to such by his/her cosignature. ATTENDING NOTE I personally examined Mr. Francois Padilla, discussed his presentation, history and findings with Dr. Rosas and I agree with her findings and plan as noted above. Briefly, this gentleman with HCV/EtOH cirrhosis, s/p HCV treatment, who quit alcohol ~2 months ago has been having frequent falls with gait instability and memory troubles with some confabulation per his significant other such that in addition to c/f hepatic encephalopathy, we discussed the possibility of Wernicke-Korsakoff's encephalopathy. Fortunately he did not sustain any fractures. We will thus continue his rifaximin, lactulose regimen for which he has poor compliance with, as well as check his Vitamin B1 and give him high dose thiamine at 500mg q8h. Will also consult PT/OT. DAISY ROSAS MD Nov 24, 2019 22:26 LUKAS LAWTON MD Nov 25, 2019 01:25
[2019-11-24 22:33] VITALS: BP 135/66
[2019-11-24] MEDS: rifAXIMin 550 MG TAB (XIFAXAN) PO SCH (22:33)
[2019-11-25] MEDS: NS 1,000 ML IV SCH ×2 (00:12→08:59)
[2019-11-25] MEDS: LACTULOSE 20 GM/30 ML SYRUP UD PO SCH ×3 (00:12→12:17)
[2019-11-25 02:00] VITALS: BP 124/55
[2019-11-25] MEDS: THIAMINE 200MG/2ML VIAL (J3411 PER 100MG) IV SCH ×2 (05:23→14:13)
[2019-11-25 06:00] VITALS: BP 122/57
[2019-11-25 06:13] LABS: HEMOGLOBIN 10.8 g/dl (13.5-17.5); MEAN CORPUSCULAR HEMOGLOBIN 33.2 pg (27.0-33.0); MEAN CORPUSCULAR VOLUME 92.3 fl (80.0-96.0); PLATELET COUNT, AUTOMATED 63 10^3/uL (150-450); RED BLOOD COUNT 3.25 10^6/uL (4.30-6.10)
[2019-11-25 06:22] LABS: INR 3.29; PROTHROMBIN TIME 34.2 SECONDS (12.5-14.3)
[2019-11-25 07:56] LABS: ALBUMIN 2.3 GM/DL (3.2-5.2); ALT/SGPT 64 U/L (12-78); BILIRUBIN,TOTAL 1.8 MG/DL (0.2-1.0); BLOOD UREA NITROGEN 6 MG/DL (7-18); CALCIUM LEVEL 7.8 MG/DL (8.8-10.2); CARBON DIOXIDE LEVEL 24 MEQ/L (21-32); CHLORIDE LEVEL 111 MEQ/L (98-107); CREATININE FOR GFR 0.91 MG/DL (0.70-1.30); GLOMERULAR FILTRATION RATE > 60.0 (>49); GLUCOSE, FASTING 275 MG/DL (70-100); MAGNESIUM LEVEL 1.5 MG/DL (1.8-2.4); SODIUM LEVEL 140 MEQ/L (136-145); TOTAL PROTEIN 5.3 GM/DL (6.4-8.2)
[2019-11-25 07:57] LABS: VITAMIN B12 LEVEL 578 PG/ML (247-911)
[2019-11-25] MEDS ORDERED: POTASSIUM CHLORIDE 10 MEQ SR TABLET PO ONE ×3 (08:30→10:00)
--- NOTE | 2019-11-25 08:39 | IPNPDOC ---
Subjective Date Seen The patient was seen on 11/25/19. Subjective Chief Complaint/HPI Patient was seen this am at bedside. She's resting comfortably in bed without any acute distress. She states that her nausea has resolved since yesterday. She's had a bowel movement where she saw some blood. This may be 2/2 to the blood she swallowed. Blood pressure this am is improving: bp of 155/95. No other acute events overnight reported by nursing. Denies CP, SOB, abdominal pain, n/v/d, fever. VS, I&O, 24H, Fishbone Vital Signs/I&O Vital Signs Date Time Temp Pulse Resp B/P (MAP) Pulse Ox O2 Delivery O2 Flow Rate FiO2 11/25/19 06:00 99.3 64 16 122/57 (78) 94 Room Air I&O- Last 24 Hours up to 6 AM 11/25/19 06:00 Intake Total 1380 ml Output Total 0 ml Balance 1380 ml Laboratory Data 24H LABS Laboratory Tests 2 11/24/19 16:39: Immature Granulocyte % (Auto) 0.7, Neutrophils (%) (Auto) 47.1, Lymphocytes (%) (Auto) 30.5, Monocytes (%) (Auto) 13.8H, Eosinophils (%) (Auto) 5.6H, Basophils (%) (Auto) 2.3H, Neutrophils # (Auto) 2.0, Lymphocytes # (Auto) 1.3L, Monocytes # (Auto) 0.6, Eosinophils # (Auto) 0.2, Basophils # (Auto) 0.1, Nucleated Red Blood Cells % (auto) 0.0, Immature Platelet Fraction 11.0H, Anion Gap 12, Glomerular Filtration Rate > 60.0, Lactic Acid Level 5.1*H, Calcium Level 8.4L, Total Bilirubin 2.9H, Direct Bilirubin 0.7H, Aspartate Amino Transf (AST/SGOT) 79H, Alanine Aminotransferase (ALT/SGPT) 82H, Alkaline Phosphatase 124H, Ammonia 52H, Total Protein 6.6, Albumin 2.9L, Albumin/Globulin Ratio 0.8, Thyroid Stimulating Hormone (TSH) 2.240, Salicylates Level < 1.7L, Acetaminophen Level < 2.0L, Ethyl Alcohol Level < 0.003 11/24/19 16:44: Urine Color YELLOW, Urine Appearance CLEAR, Urine pH 6.0, Urine Specific [place] 1.033, Urine Protein NEGATIVE, Urine Glucose (UA) 3+H, Urine Ketones TRACEH, Urine Blood 1+H, Urine Nitrite NEGATIVE, Urine Bilirubin NEGATIVE, Urine Urobilinogen 0.2, Urine Leukocyte Esterase NEGATIVE, Urine WBC (Auto) 2, Urine RBC (Auto) 3, Urine Hyaline Casts (Auto) 0, Urine Bacteria (Auto) NEGATIVE, [place] ne Squamous Epithelial Cells 0, Urine Sperm (Auto) , Urine Opiates Screen POSITIVEH, Urine Methadone Screen NEGATIVE, Urine Barbiturates Screen NEGATIVE, Urine Phencyclidine Screen NEGATIVE, Urine Amphetamines Screen NEGATIVE, Urine Benzodiazepines Screen NEGATIVE, Urine Cocaine Metabolite Screen NEGATIVE, Urine Cannabinoids Screen NEGATIVE 11/24/19 19:52: Bedside Glucose (Misc Panel) 397H 11/24/19 21:35: Prothrombin Time 30.5H, Prothromb Time International Ratio 2.84 11/24/19 22:26: Bedside Glucose (Misc Panel) 364H 11/24/19 22:46: Lactic Acid Followup at 4 Hours 5.2*H 11/25/19 05:53: Nucleated Red Blood Cells % (auto) 0.0, Prothrombin Time 34.2H, Prothromb Time International Ratio 3.29, Anion Gap 5L, Glomerular Filtration Rate > 60.0, Calcium Level 7.8L, Magnesium Level 1.5L, Total Bilirubin 1.8H, Aspartate Amino Transf (AST/SGOT) 62H, Alanine Aminotransferase (ALT/SGPT) 64, Alkaline Phosphatase 93, Total Protein 5.3L, Albumin 2.3#L, Albumin/Globulin Ratio 0.8, Vitamin B12 Level 578 CBC/BMP Laboratory Tests 11/24/19 16:39 11/25/19 05:53 Microbiology Microbiology 11/24/19 Blood Culture, Received Pending 11/24/19 Blood Culture, Received Pending Nannette Juarez DO Nov 25, 2019 08:39
[2019-11-25] MEDS: HumaLOG INSULIN (NovoLOG) PER UNIT SC SCH ×2 (08:54→12:17)
[2019-11-25] MEDS ORDERED: WARFARIN SOD 4MG TAB PO SCH (09:00)
[2019-11-25] MEDS ORDERED: METOPROLOL TART 12.5 MG PER 1/2 TAB PO SCH (09:00)
[2019-11-25] MEDS ORDERED: lisinopriL 10 MG TAB PO SCH (09:00)
[2019-11-25] MEDS ORDERED: ASPIRIN 81 MG ENTERIC TAB PO SCH (09:00)
[2019-11-25] MEDS ORDERED: KCL 10MEQ/100ML SWI (KRUN) 10 MEQ in IV 1 EA IV SCH (09:00)
--- NOTE | 2019-11-25 09:57 | REPVR ---
PROCEDURE INFORMATION: Exam: US Abdomen Complete Exam date and time: 11/25/2019 9:46 AM Age: 64 years old Clinical indication: Screening exam; Other: Eval portal circulation; Prior surgery; Surgery date: 6+ months; Surgery type: Liver laceration years ago; Additional info: Liver US / portal veins TECHNIQUE: Imaging protocol: Real-time ultrasound of the abdomen with image documentation. COMPARISON: LIVER US 08/20/2019 2:50 PM FINDINGS: Liver: Coarse echogenic attenuating liver parenchyma. Assessment of portal circulation is is limited by motion. No evidence of thrombosis. Gallbladder: Status post cholecystectomy. Common bile duct: Normal. No stones. No dilation. Pancreas: Visualized pancreas is unremarkable. Right kidney: Normal. No mass. No hydronephrosis. Left kidney: Normal. No mass. No hydronephrosis. Spleen: Normal. No splenomegaly. Aorta: Normal. No aneurysm. Inferior vena cava: Obscured by bowel gas. IMPRESSION: Steatosis. Assessment of portal circulation is is limited by motion. No evidence of thrombosis. Electronically signed by: Jules Dutton On 11/25/2019 09:56:53 AM
[2019-11-25 09:58] VITALS: BP 122/57
[2019-11-25] MEDS: rifAXIMin 550 MG TAB (XIFAXAN) PO SCH (09:58)
[2019-11-25] MEDS: MAG SULF 1GM/100ML (MAG RUN) 1 GM in IV 1 EA IV SCH ×2 (09:59→12:17)
[2019-11-25 10:00] VITALS: BP 135/73
[2019-11-25] MEDS ORDERED: THIA100T7 PO (11:45)
[2019-11-25] MEDS ORDERED: WARF-20 PO (11:45)
[2019-11-25 14:00] VITALS: BP 134/70
--- NOTE | 2019-11-25 14:42 | DS.PDOC ---
Discharge Summary General Date of Admission Nov 24, 2019 at 20:15 Date of Discharge Nov 25, 2019. Attending Physician: CHRIS SIMMS MD Discharge Summary PROCEDURES PERFORMED DURING STAY: None. ADMITTING/DISCHARGE DIAGNOSES: Hepatic encephalopathy. CAD s/p TX in 2018, and C no stents. Hepatitis C treated by PCP in [place] Cirrhosis Hypertension. IDDM. Hx of TIA. Hx of endocarditis. COMPLICATIONS/CHIEF COMPLAINT: Fall and altered mental status. HISTORY OF PRESENT ILLNESS: Mr. Padilla is a 64 yo male that presented to the ED on 11/23 with altered mental status. His noted that he had been more confused over the past several days. He admitted to feeling more forgetful and m ore unsteady on his feet. He denied any fever, chills, nausea, vomiting, or diarrhea. He had been hospitalized with similar presentations before. He was found to have a glucose of 600, lactic acid of 5.1, and ammonia of 52. Xrays of the R foot, R hip, pelvis, and chest were negative as was a head CT. He was admitted for altered mental status likely due to hepatic encephalopathy. HOSPITAL COURSE: Overnight (11/23-11/24) he was stable and afebrile. On 11/24 his morning fasting blood glucose was 275. He was AAOx3 on examination. He was ambulating well with PT. He was cooperative, able to follow commands and answer questions. An abdominal ultrasound was performed to assess for any portal vein thrombosis and was negative. Upon appropriate administration of his home medications his condition seemed to improve rapidly. It is likely that this admission for hepatic encephalopathy was due to noncompliance with home medications. Upon discharge to home pt should follow up with his PCP within 7 days, continue physical therapy, and he and his should be counseled on the importance of adhering to his medication regimen. DISCHARGE MEDICATIONS: Please see below. ALLERGIES: Please see below. PHYSICAL EXAMINATION ON DISCHARGE: VITAL SIGNS: Please see below. GENERAL: Pt seen walking with PT, lying comfortably on bed for exam, no acute distress. HEENT: NC, AT, no scleral icterus, no pharyngeal erythema. NECK: no JVD or lymphadenopathy appreciated. CARDIOVASCULAR EXAMINATION: 3/6 INOCENCIO in RUSB, no rubs or gallops, RRR RESPIRATORY EXAMINATION: CTAB, no rales, rhonchi, or wheezes. ABDOMINAL EXAMINATION: soft, nondistended, nontender, bowel sounds present in all 4 quadrants. EXTREMITIES: no swelling or edema. SKIN: no rashes or lesions. NEUROLOGICAL EXAMINATION: AAOx3, CN II-XII grossly intact, EOMI, PERRLA. PSYCHIATRIC EXAMINATION: Normal mood and affect. LABORATORY DATA: Please see below. IMAGING: - ABDOMINAL US (11/25/2019): Impression "Steatosis. Assessment of portal circul ation is limited by motion. No evidence of thrombosis." - HEAD CT: IMPRESSION: 1. Chronic small cortical/subcortical infarction left parietal lobe. 2. Age appropriate supratentorial and infratentorial atrophy. 3. Moderate chronic white matter microvascular ischemic disease. 4. No acute intracranial injury identified. - CXR: IMPRESSION: No acute cardiopulmonary abnormality identified. - PELVIS XR: IMPRESSION: No acute bony injury identified. - HIP XR: IMPRESSION: No acute findings. - FOOT XR: IMPRESSION: 1. Plantar calcaneal spur. 2. No acute bony injury identified. PROGNOSIS: Fair. ACTIVITY: As tolerated with cane. DIET: Consistent carbohydrate. DISPOSITION: Discharge to home. DISCHARGE INSTRUCTIONS: 1. Follow up with PCP within 7 days. 2. Continue physical therapy. 3. Adhere to medication regimen and check blood glucose 4 times daily to ensure optimal control 4. Return to the ER if you experience any problems DISCHARGE CONDITION: Stable. TIME SPENT ON DISCHARGE: 35 minutes. Vital Signs/I&Os Vital Signs Date Time Temp Pulse Resp B/P (MAP) Pulse Ox O2 Delivery O2 Flow Rate FiO2 11/25/19 10:43 18 Room Air 11/25/19 10:00 98.1 63 135/73 (93) 94 I&O- Last 24 Hours up to 6 AM 11/25/19 06:00 Intake Total 1380 ml Output Total 0 ml Balance 1380 ml Laboratory Data Labs 24H Laboratory Tests 2 11/24/19 16:39: Immature Granulocyte % (Auto) 0.7, Neutrophils (%) (Auto) 47.1, Lymphocytes (%) (Auto) 30.5, Monocytes (%) (Auto) 13.8H, Eosinophils (%) (Auto) 5.6H, Basophils (%) (Auto) 2.3H, Neutrophils # (Auto) 2.0, Lymphocytes # (Auto) 1.3L, Monocytes # (Auto) 0.6, Eosinophils # (Auto) 0.2, Basophils # (Auto) 0.1, Nucleated Red Blood Cells % (auto) 0.0, Immature Platelet Fraction 11.0H, Anion Gap 12, G lomerular Filtration Rate > 60.0, Lactic Acid Level 5.1*H, Calcium Level 8.4L, Total Bilirubin 2.9H, Direct Bilirubin 0.7H, Aspartate Amino Transf (AST/SGOT) 79H, Alanine Aminotransferase (ALT/SGPT) 82H, Alkaline Phosphatase 124H, Ammonia 52H, Total Protein 6.6, Albumin 2.9L, Albumin/Globulin Ratio 0.8, Thyroid Stimulating Hormone (TSH) 2.240, Salicylates Level < 1.7L, Acetaminophen Level < 2.0L, Ethyl Alcohol Level < 0.003 11/24/19 16:44: Urine Color YELLOW, Urine Appearance CLEAR, Urine pH 6.0, Urine Specific [place] 1.033, Urine Protein NEGATIVE, Urine Glucose (UA) 3+H, Urine Ketones TRACEH, Urine Blood 1+H, Urine Nitrite NEGATIVE, Urine Bilirubin NEGATIVE, Urine Urob ilinogen 0.2, Urine Leukocyte Esterase NEGATIVE, Urine WBC (Auto) 2, Urine RBC (Auto) 3, Urine Hyaline Casts (Auto) 0, Urine Bacteria (Auto) NEGATIVE, Urine Squamous Epithelial Cells 0, Urine Sperm (Auto) , Urine Opiates Screen POSITIVEH, Urine Methadone Screen NEGATIVE, Urine Barbiturates Screen NEGATIVE, Urine Phencyclidine Screen NEGATIVE, Urine Amphetamines Screen NEGATIVE, Urine Benzodiazepines Screen NEGATIVE, Urine Cocaine Metabolite Screen NEGATIVE, Urine Cannabinoids Screen NEGATIVE 11/24/19 16:46: POC Glucose (Misc Panel) 572*H, POC Sodium (Misc Panel) 136, POC Potassium (Misc Panel) 3.5, POC Chloride (Misc Panel) 95L, POC Total CO2 (Misc Panel) 20.0L, POC Blood Urea Nitrogen (Misc Panel 4L, POC Ionized Calcium (Misc Panel) 4.5, POC Creatinine (Misc Panel) 0.6, POC Hematocrit (Misc Panel) 37.0L 11/24/19 16:51: POC Troponin I (Misc) 0.00 11/24/19 19:52: Bedside Glucose (Misc Panel) 397H 11/24/19 21:35: Prothrombin Time 30.5H, Prothromb Time International Ratio 2.84 11/24/19 22:26: Bedside Glucose (Misc Panel) 364H 11/24/19 22:46: Lactic Acid Followup at 4 Hours 5.2*H 11/25/19 05:53: Nucleated Red Blood Cells % (auto) 0.0, Prothrombin Time 34.2H, Prothromb Time International Ratio 3.29, Anion Gap 5L, Glomerular Filtration Rate > 60.0, Calcium Level 7.8L, Magnesium Level 1.5L, Total Bilirubin 1.8H, Aspartate Amino Transf (AST/SGOT) 62H, Alanine Aminotransferase (ALT/SGPT) 64, Alkaline Phosphatase 93, Total Protein 5.3L, Albumin 2.3#L, Albumin/Globulin Ratio 0.8, Vitamin B12 Level 578 11/25/19 11:24: Bedside Glucose (Misc Panel) 125H CBC/BMP Laboratory Tests 11/24/19 16:39 11/25/19 05:53 FSBS Laboratory Tests Test 11/24/19 19:52 11/24/19 22:26 11/25/19 11:24 Range/Units Bedside Glucose (Misc Panel) 397 364 125 80-115 MG/DL Microbiology Microbiology 11/24/19 Blood Culture, Received Pending 11/24/19 Blood Culture, Received Pending Discharge Medications Scheduled Aspirin (Aspirin EC) 81 Mg Tablet.dr, 81 MG PO DAILY, (Reported) Atorvastatin Calcium (Atorvastatin Calcium) 40 Mg Tablet, 40 MG PO DAILY, (Reported) Insulin Glargine (Lantus) 100 Unit/1 Ml Vial, 20 UNITS SC QHS, (Reported) Lactulose (Lactulose) 10 Gm/15 Ml Solution, 40 ML PO Q6H, (Reported) Lisinopril (Lisinopril) 10 Mg Tablet, 10 MG PO DAILY, (Reported) Metoprolol Tartrate (Metoprolol Tartrate) 25 Mg Tablet, 12.5 MG PO DAILY, (Reported) Pregabalin (Lyrica) 150 Mg Capsule, 150 MG PO BID, (Reported) Rifaximin (Xifaxan) 550 Mg Tablet, 550 MG PO BID, (Reported) Thiamine HCl (Thiamine HCl) 100 Mg Tablet, 1 TAB PO DAILY Warfarin Sodium (Warfarin Sodium) 4 Mg Tablet, 4 MG PO DAILY To be resumed on 11/27/19 Scheduled PRN Capsaicin (Capsaicin) 0.025% Cream..g., 1 DOSE TOP BID PRN for PAIN, (Reported) APPLY TO BACK Carboxymethylcellulose Sodium (Refresh Tears) 15 Ml Drops, 1 DROP OU TID PRN for DRY EYES, (Reported) Oxycodone HCl (Roxicodone) 5 Mg Tablet, 5 MG PO Q4H PRN for PAIN, (Reported) Allergies Coded Allergies: egg (Verified Allergy, Unknown, 04/07/19) gabapentin (Verified Adverse Reaction, Intermediate, nausea vomiting, 04/03/19) spironolactone (Verified Adverse Reaction, Unknown, gynecomastia, 12/19/18) GME ATTESTATION GME ATTESTATION My faculty preceptor for this patient encounter was physically present during the encounter and was fully available. All aspects of the patient interview, ex amination, medical decision making process, and medical care plan development were reviewed and approved by the faculty preceptor. The faculty preceptor is aware and concurs with the plan as stated in the body of this note and will attest to such by his/her cosignature. ATTENDING NOTE I, Chris Simms, have independently examined this patient and performed my own p hysical exam, as well as reviewed the documentation and edited where necessary. I have discussed in detail with the resident / student the findings and plan of treatment as documented by the resident / student and edited their note. I agree with their findings and treatment plan and have edited their documentation. I will continue to follow the patient during this hospital stay. Time spent on discharge 35 minutes JUANITO MORGAN OMS-3 Nov 25, 2019 14:42 CHRIS SIMMS MD Nov 25, 2019 15:40
== END 2019-11-25 15:05 | disposition home health service (06) | DRG 442 ==
LOC: M ED 15:16 → M ED INP 20:15 → M MS5PR 22:24
PROVIDERS: ADMIT Internal Medicine; ATTEND Internal Medicine
DX: K72.90 Hepatic failure, unspecified without coma (principal); E72.20 Disorder of urea cycle metabolism, unspecified; E87.2 Acidosis; E11.65 Type 2 diabetes mellitus with hyperglycemia; K70.30 Alcoholic cirrhosis of liver without ascites; I25.10 Atherosclerotic heart disease of native coronary artery without angina pectoris; Z86.73 Personal history of transient ischemic attack (TIA), and cerebral infarction without residual deficits; K57.30 Diverticulosis of large intestine without perforation or abscess without bleeding; I25.2 Old myocardial infarction; B18.2 Chronic viral hepatitis C; I10 Essential (primary) hypertension; Z79.82 Long term (current) use of aspirin; Z79.899 Other long term (current) drug therapy; Z91.018 Allergy to other foods; Z88.8 Allergy status to other drugs, medicaments and biological substances; Z79.4 Long term (current) use of insulin; Z91.19 Patient's noncompliance with other medical treatment and regimen

== ENCOUNTER 2020-01-23 17:12 | Emergency (ER) | payer OTHER ==
[~2020-01-23] VITALS: Ht 177.8 cm; Wt 69.5 kg
[~2020-01-23 17:12] MED LIST changes: +THIA100T7 PO
[2020-01-23] MEDS ORDERED: HumuLIN R (REGULAR) INSULIN (NovoLIN R) **100U/ML** PER UNIT IV ONE (18:30)
[2020-01-23] MEDS ORDERED: NS 1,000 ML IV ONE (18:30)
[2020-01-23 18:39] LABS: BASO # 0.1 10^3/uL (0.0-0.2); BASO % 2.2 % (0.0-1.0); EOS # 0.3 10^3/uL (0.0-0.5); HEMOGLOBIN 11.1 g/dl (13.5-17.5); LYMPH # 1.4 10^3/uL (1.5-5.0); LYMPH % 38.5 % (24.0-44.0); MEAN CORPUSCULAR HEMOGLOBIN 33.5 pg (27.0-33.0); MEAN CORPUSCULAR HGB CONC 33.6 g/dl (32.0-36.5); MEAN CORPUSCULAR VOLUME 99.7 fl (80.0-96.0); MONO # 0.6 10^3/uL (0.0-0.8); MONO % 16.9 % (0.0-5.0); NEUTROPHILS # 1.2 10^3/uL (1.5-8.5); NEUTROPHILS % 34.1 % (36.0-66.0); PLATELET COUNT, AUTOMATED 85 10^3/uL (150-450); RED BLOOD COUNT 3.31 10^6/uL (4.30-6.10); WHITE BLOOD COUNT 3.6 10^3/uL (4.0-10.0)
[2020-01-23 19:07] LABS: ACETONE/KETONE 1.16 MG/DL (<2.81); ALBUMIN 2.2 GM/DL (3.2-5.2); BILIRUBIN,DIRECT 0.8 MG/DL (0.0-0.2); BILIRUBIN,TOTAL 1.5 MG/DL (0.2-1.0); MAGNESIUM LEVEL 1.8 MG/DL (1.8-2.4); PHOSPHORUS LEVEL 2.7 MG/DL (2.5-4.9); TOTAL PROTEIN 6.2 GM/DL (6.4-8.2)
--- NOTE | 2020-01-23 19:13 | REP ---
INDICATION: DKA COMPARISON: 11/24/2019 TECHNIQUE: Portable AP view of the chest FINDINGS: The mediastinum and cardiac silhouette are stable and within normal limits for portable technique. The lung rob demonstrate stable chronic changes without acute consolidation, effusion, or pneumothorax. Skeletal structures are intact. IMPRESSION: Chronic stable changes. No acute cardiopulmonary process appreciated. <Electronically signed by Francois Barroso > 01/23/20 1440
--- NOTE | 2020-01-23 19:14 | REP ---
INDICATION: DKA COMPARISON: None. TECHNIQUE: Two portable supine views of the abdomen and pelvis. FINDINGS: Moderate to significant fecal stasis and presumed constipation suggested. No definite bowel obstruction. Evidence for prior cholecystectomy. Skeletal structures are intact. IMPRESSION: Moderate to significant fecal stasis. <Electronically signed by Francois Barroso > 01/23/20 [id number]
[2020-01-23 19:24] LABS: HEMOGLOBIN A1c 12.8 %
[2020-01-23 21:05] LABS: VENOUS BASE EXCESS -3.8 (-2.0-2.0); VENOUS HCO3 20.5 MEQ/L (23.0-27.0); VENOUS O2 SATURATION 86.9 % (60.0-80.0); VENOUS PARTIAL PRESSURE CO2 34.6 mmHg (38.0-50.0); VENOUS PARTIAL PRESSURE O2 55.2 mmHg (30.0-50.0); VENOUS PH 7.391 UNITS (7.330-7.430); VENOUS STANDARD HCO3 21.2 MEQ/L; VENOUS TOTAL CO2 21.6 MEQ/L (24.0-28.0)
--- NOTE | 2020-01-23 21:45 | ECGEPIP ---
[facility] - ED Test Date: 2020-01-23 Pat Name: JAXON KANG Department: Room: - Gender: Male Yard Assistant: JACKLYN : 1955 Requested By: ANA BLUM Order Number: [id number] Reading MD: Sveta Ramos Measurements Intervals [place] Rate: 57 P: 40 [place]: 199 QRS: -49 QRSD: 89 T: 17 QT: 507 QTc: 494 Interpretive Statements SINUS BRADYCARDIA POSSIBLE RIGHT VENTRICULAR CONDUCTION DELAY LEFT ANTERIOR FASCICULAR BLOCK LEFT VENTRICULAR HYPERTROPHY AND ST-T CHANGE SIMILAR 11/24/19 Electronically Signed on 01-23-2020 21:44:32 EST by Sveta Ramos
[2020-01-23 22:45] VITALS: BP 136/84
== END 2020-01-23 23:17 | disposition home or self-care (01) ==
LOC: M ED 17:12
DX: E11.65 Type 2 diabetes mellitus with hyperglycemia (principal); R94.31 Abnormal electrocardiogram [ECG] [EKG]; Z91.012 Allergy to eggs; Z79.01 Long term (current) use of anticoagulants; Z79.899 Other long term (current) drug therapy; Z79.4 Long term (current) use of insulin; Z79.82 Long term (current) use of aspirin; Z88.8 Allergy status to other drugs, medicaments and biological substances; Z86.73 Personal history of transient ischemic attack (TIA), and cerebral infarction without residual deficits; Z98.890 Other specified postprocedural states; Z90.49 Acquired absence of other specified parts of digestive tract

== ENCOUNTER 2020-03-05 13:32 | Inpatient (IN) | payer OTHER ==
[~2020-03-05] VITALS: Ht 177.8 cm; Wt 70.4 kg
[2020-03-05 14:11] LABS: BASO # 0.1 10^3/uL (0.0-0.2); BASO % 2.1 % (0.0-1.0); EOS # 0.2 10^3/uL (0.0-0.5); EOS % 4.2 % (0.0-3.0); HEMATOCRIT 35.7 % (42.0-52.0); HEMOGLOBIN 11.7 g/dl (13.5-17.5); LYMPH # 0.9 10^3/uL (1.5-5.0); LYMPH % 15.6 % (24.0-44.0); MEAN CORPUSCULAR HEMOGLOBIN 32.3 pg (27.0-33.0); MEAN CORPUSCULAR HGB CONC 32.8 g/dl (32.0-36.5); MEAN CORPUSCULAR VOLUME 98.6 fl (80.0-96.0); MONO # 0.8 10^3/uL (0.0-0.8); NEUTROPHILS # 3.8 10^3/uL (1.5-8.5); NEUTROPHILS % 64.9 % (36.0-66.0); RED BLOOD COUNT 3.62 10^6/uL (4.30-6.10); WHITE BLOOD COUNT 5.8 10^3/uL (4.0-10.0)
--- NOTE | 2020-03-05 14:13 | REP ---
INDICATION: DKA COMPARISON: 01/23/2020 TECHNIQUE: Portable AP view of the chest FINDINGS: The mediastinum and cardiac silhouette are stable and within normal limits for portable technique. The lung rob are clear without acute consolidation, effusion, or pneumothorax. Skeletal structures are intact. IMPRESSION: No acute cardiopulmonary process appreciated. <Electronically signed by Francois Barroso > 03/05/20 [id number]
[2020-03-05 14:14] LABS: PLATELET COUNT, AUTOMATED 85 10^3/uL (150-450)
[2020-03-05] MEDS ORDERED: HumuLIN R (REGULAR) INSULIN (NovoLIN R) **100U/ML** PER UNIT IV ONE ×3 (14:15→16:30)
[2020-03-05] MEDS ORDERED: NS 1,000 ML IV ONE ×4 (14:15→20:30)
[2020-03-05 14:17] LABS: VENOUS BASE EXCESS -2.6 (-2.0-2.0); VENOUS HCO3 23.2 MEQ/L (23.0-27.0); VENOUS O2 SATURATION 92.2 % (60.0-80.0); VENOUS PARTIAL PRESSURE CO2 43.5 mmHg (38.0-50.0); VENOUS PARTIAL PRESSURE O2 72.6 mmHg (30.0-50.0); VENOUS PH 7.344 UNITS (7.330-7.430); VENOUS STANDARD HCO3 22.2 MEQ/L; VENOUS TOTAL CO2 24.5 MEQ/L (24.0-28.0)
[2020-03-05 14:24] LABS: INR 3.46; PARTIAL THROMBOPLASTIN TIME 50.4 SECONDS (24.2-38.5); PROTHROMBIN TIME 35.6 SECONDS (12.5-14.3)
[2020-03-05 14:43] LABS: OSMOLALITY SERUM 304 MOSM/KG (280-301)
[2020-03-05 15:03] LABS: RSV AMPLIFICATION NEGATIVE (NEGATIVE)
[2020-03-05 15:13] LABS: ACETONE/KETONE 2.78 MG/DL (<2.81); ALT/SGPT 469 U/L (12-78); BILIRUBIN,DIRECT 0.8 MG/DL (0.0-0.2); BILIRUBIN,TOTAL 2.1 MG/DL (0.2-1.0); CK-MB VALUE MASS 55.5 NG/ML (<3.6); CPK CREATINE PHOSPHOKINASE 11123 U/L (39-308); LIPASE 113 U/L (73-393); TROPONIN I 0.13 NG/ML (< 0.10)
[2020-03-05] MEDS ORDERED: ATOR80TA59 PO (17:18)
[2020-03-05] MEDS ORDERED: THIA100T7 PO (17:18)
[2020-03-05] MEDS ORDERED: NOVOINJ3 SC (17:18)
[2020-03-05] MEDS ORDERED: WARF4TAB51 PO (17:18)
[2020-03-05] MEDS ORDERED: LISI-538 PO (17:18)
[2020-03-05] MEDS ORDERED: VITA50005 PO (17:18)
[2020-03-05 17:38] LABS: HEMOGLOBIN A1c 13.5 %
--- NOTE | 2020-03-05 17:50 | REPVR ---
PROCEDURE INFORMATION: Exam: CT Abdomen And Pelvis Without Contrast Exam date and time: 03/05/2020 5:16 PM Age: 64 years old Clinical indication: Condition or disease; Liver condition; Cirrhosis; Additional info: Cirrohsis TECHNIQUE: Imaging protocol: Computed tomography of the abdomen and pelvis without contrast. Radiation optimization: All CT scans at this facility use at least one of these dose optimization techniques: automated exposure control; mA and/or kV adjustment per patient size (includes targeted exams where dose is matched to clinical indication); or iterative reconstruction. COMPARISON: CT ABD/PEL W/IV ORAL CONTRAS 11/11/2019 11:20 PM FINDINGS: Lungs: No suspicious mass or airspace process in the visualized lung bases. Scarring at the posterolateral left lung base is unchanged, with tethering of the hemidiaphragm slip. Liver: Liver demonstrates nodular contours anteriorly. No focal lesion. Gallbladder and bile ducts: Gallbladder is surgically absent. Pancreas: Noncontrast pancreas shows no obvious mass or adjacent fluid. Spleen: Noncontrast spleen shows no obvious focal deformity. Adrenal glands: Adrenal glands are normal in appearance. Kidneys and ureters: Kidneys show no stone or hydronephrosis. Stomach and bowel: No evidence of small bowel obstruction. Large volume of stool is seen throughout the colon. No evidence of acute diverticulitis. Appendix: Appendix is not seen. No RLQ inflammation to suggest appendicitis. Intraperitoneal space: No pneumoperitoneum. No evidence of abdominal ascites or abnormal focal fluid collection. Vasculature: No aortic aneurysm. Lymph nodes: No enlarged lymph nodes. Urinary bladder: Urinary bladder appears normal. Reproductive: Dystrophic prostate calcifications are noted. Bones/joints: Bony structures are normal except for lumbar spine degenerative disc changes. Soft tissues: Unremarkable. Other findings: Limited evaluation without enteric or IV contrast. Exam is limited due to patient motion. Exam is limited by artifact from patient being scanned with arms at the sides. IMPRESSION: 1. Appearance of the liver suggests mild cirrhosis, with nodular contours but no ascites or splenomegaly at this point. Extensive splenic varices suggesting portal hypertension. 2. No acute surgical or inflammatory intra-abdominal or pelvic process. 3. Large volume of colonic stool suggesting diffuse constipation Electronically signed by: Rocael Scott On 03/05/2020 17:50:38 PM
[2020-03-05] MEDS: DOCUSATE SODIUM 100MG CAPSULE PO SCH (21:00)
[2020-03-05] MEDS ORDERED: MOM 30ML SUSPENSION UDC PO PRN (21:00)
[2020-03-05] MEDS ORDERED: HumaLOG INSULIN (NovoLOG) PER UNIT SC SCH ×2 (21:00)
[2020-03-05] MEDS ORDERED: LEVEMIR (INSULIN DETEMIR) 1 UNITS/0.01ML SC SCH (21:00)
[2020-03-05] MEDS ORDERED: MAALOX 30 ML SUSP *UDC PO PRN (21:00)
[2020-03-05] MEDS ORDERED: CAPSAICIN 0.025% CR 60 GM TOP PRN (21:30)
[2020-03-05] MEDS ORDERED: DEXTROSE 50% 50 ML SYRINGE IV PRN (21:30)
[2020-03-05] MEDS ORDERED: GLUCOSE 4GM CHEW TABLET PO PRN (21:30)
[2020-03-05] MEDS ORDERED: GLUCAGON INJ 1MG VIAL SC PRN (21:30)
[2020-03-05 21:38] LABS: BLOOD UREA NITROGEN 15 MG/DL (7-18); CALCIUM LEVEL 8.9 MG/DL (8.8-10.2); CARBON DIOXIDE LEVEL 26 MEQ/L (21-32); CHLORIDE LEVEL 94 MEQ/L (98-107); CREATININE FOR GFR 1.21 MG/DL (0.70-1.30); GLOMERULAR FILTRATION RATE > 60.0 (>49); GLUCOSE, FASTING 623 MG/DL (70-100); POTASSIUM SERUM 5.2 MEQ/L (3.5-5.1); SODIUM LEVEL 130 MEQ/L (136-145)
[2020-03-05 21:59] LABS: INR 4.1; PROTHROMBIN TIME 40.7 SECONDS (12.5-14.3)
--- NOTE | 2020-03-05 22:06 | HPEPDOC ---
General Date of Admission Mar 05, 2020 at 20:30 Date of Service: Mar 05, 2020 Attending Physician: CHERRI BEAL MD Chief Complaint The patient is a 64-year-old male admitted with a reason for visit of Cirrhosis/Diabetes Mellitus/Hepatic Encephalopathy. History of Present Illness History of present illness: Mr. Padilla is a 66 year old patient liver cirrhosis, hep C, CAD, IDDM presented to the emergency department with altered mental status. Patient reports being confused since 3-5 days, and in extreme pain and sore muscles in his bilateral lower extremities, and weakness. He noticed he has been forgetful, at times not knowing where and what he was doing. He also reports having difficulty with his balance and frequent falls. He denies having any headache, nausea, vomiting, chest pain, abdominal pain. He mentions that he was admitted to the hospital multiple times for the same complaint. Past medical history: Coronary artery disease status post NE in 2018 Hepatitis C treated 3 years ago by PCP in [place] Hypertension Diabetes mellitus on insulin Cirrhosis History of hepatic encephalopathy TIA Endocarditis Past Surgical history: Cholecystectomy Appendectomy Social history: Denies smoking, quit smoking 20 years ago. Denies alcohol use, lost drink was 3-4 months ago. Denies illicit, or recreational drug use Family History: Not significant REVIEW OF SYSTEMS: Constitutional: Denies having fever, chills, night sweats, weight loss, headaches. Eyes: Denies blurry vision or double vision. ENT: Denies dysphagia, odynophagia. Cardiovascular: Denies chest pain or palpitations. Respiratory: Denies shortness of breath, wheezes, cough. Gastrointestinal (GI): Denies nausea or vomiting, abdominal pain. Genitourinary: Denies dysuria, hematuria. Musculoskeletal: Denies any muscle aches and pains. Skin: Denies any rashes or ulcers. All other review of systems is negative. PHYSICAL EXAMINATION: General: Patient is awake, not alert, oriented times one, laying in bed , generalized malaise and fatigue. Eyes: Conjunctiva clear, pupils equal round and reactive to light. Fundus: not visualized. ENT: Hearing Bilateral normal. No nasal deviation, oropharynx clear with no lesions. Neck: supple, no masses, trachea midline. Cardiovascular: S1, S2, normal rhythm, no murmur, rub, or gallop. Pulses: Carotid, radial, posterior tibialis and pedal 3+ symmetric, no edema. Respiratory: Chest is clear to auscultation bilaterally. No rhonchi, wheezes or rubs. Abdomen: Midline scar noted, tenderness and palpation in the right upper quadrant, rest of the quadrants no tenderness, bowel sounds positive, no abdominal distention or caput medusae. Extremities: No clubbing or cyanosis, yellow brittle and crumbling nails noted in bilateral lower extremities. No edema. 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 Skin: Skin pigmentation noted, spider angiomata noted on upper extremities. Imaging: CT abdomen and pelvis without contrast: Reported as appearance of liver such as mild cirrhosis, with nodular contorts but no ascites or splenomegaly at this point. Extensive splenic varices suggesting portal hypertension. No acute surgical or inflammatory intra-abdominal or pelvic process. Large volume of colonic stool suggesting diffuse constipation. Assessment: 64 -year-old male with cirrhosis, hep C, DM on insulin, presented to ER with altered mental status, confusion, muscle aches, hyperglycemia, elevated ammonia levels concerning for acute metabolic encephalopathy. Hospitalist team was contacted for further management. Patient is FULL CODE. Plan: Acute decompensated cirrhosis and hepatic encephalopathy: - Patient's ammonia level is 57, likely due to his non compliance and constipation. - MELD- Na score is 29 points, Child- Strauss score class C(11 Points), at some point will need evaluation if he is a candidate for liver transplant. - Patient is grade 2 encephalopathy with lethargic, disoriented in place, mild tremors in his arms. - Will Start his home dose of lactulose 40 ml PO Q6H. - Will start his home dose of rifaximin 550mg BID. - Will start Thiamine. - Hold his Lyrica as it can worsen his altered mental status. - Hold off his statin for now. Rhabdomyolysis: - Patient has an elevated creatinine kinase 12449, likely from his statin use in the setting of cirrhosis. - Hold off on his statin, lisinopril. - Hydrate him with NS at 150mls/hr X 2 bags. - Will Reassess in the morning and orders for fluids accordingly. - Monitor his kidney function. Diabetes mellitus: - POC glucose was 529. Likely due to noncompliance. - Patient was on insulin at home. - Start him on 30 units of Levemir, and mealtime lispro AC and QHS. - On hypoglycemic protocol. Hypertension: - Will continue metoprolol 12.5 MG by mouth. - Hold off lisinopril due to his cirrhosis. - Caution on starting ACEs, ARBs, thiazides. History of liver cirrhosis: - Likely secondary to hepatitis C vs alcohol abuse. - Abnormal liver enzymes AST 63, ALT 469, total bili 2.1, platelets 85, albumin 2, INR 3.46. - Will continue lactulose and rifaximin. - Caution on starting medications with hepatic metabolism. - Hold statins and lisinopril for now. Constipation: - Continue lactulose, rifaximin. - Will start milk of magnesium and Colace. History of falls: - PT/OT eval ordered. History of CVA/TIA: - Will continue home warfarin. - Monitor INR. DVT prophylaxis: - Warfarin 4 MG by mouth. Home Medications Scheduled Docusate Sodium (Dok) 100 Mg Capsule, 100 MG PO BID Insulin Detemir (Levemir) 100 Unit/1 Ml Vial, 30 UNITS SC QHS Insulin Human Lispro (Humalog) 100 Unit/1 Ml Vial, 0 UNITS SC QHS Insulin Human Lispro (Humalog) 100 Unit/1 Ml Vial, 0 UNITS SC AC Lactulose (Lactulose) 10 Gm/15 Ml Solution, 40 ML PO Q6H, (Reported) Metoprolol Tartrate (Metoprolol Tartrate) 25 Mg Tablet, 12.5 MG PO DAILY, (Reported) Rifaximin (Xifaxan) 550 Mg Tablet, 550 MG PO BID, (Reported) Thiamine HCl (Thiamine HCl) 100 Mg Tablet, 100 MG PO DAILY, (Reported) Scheduled PRN Capsaicin (Capsaicin) 0.025% Cream..g., 1 DOSE TOP BID PRN for PAIN, (Reported) APPLY TO BACK Carboxymethylcellulose Sodium (Refresh Tears) 15 Ml Drops, 1 DROP OU TID PRN for DRY EYES, (Reported) Dextrose (Glucose) 4 Gm Tab.chew, 0 GM PO ASDIRECTED PRN for SEE LABEL COMMENTS Dextrose (Dextrose 50%-Water Syringe) 50 Ml Syringe, 25 ML IV ASDIRECTED PRN for SEE LABEL COMMENTS Glucagon,Human Recombinant (Glucagen) 1 Mg/1 Ml Vial, 1 MG SC ASDIRECTED PRN for SEE LABEL COMMENTS Allergies Coded Allergies: egg (Verified Allergy, Unknown, 04/07/19) gabapentin (Verified Adverse Reaction, Intermediate, nausea vomiting, 04/03/19) spironolactone (Verified Adverse Reaction, Unknown, gynecomastia, 12/19/18) A-FIB/CHADSVASC A-FIB History Current/History of A-Fib/PAF?: No Vital Signs Vital Signs Date Time Temp Pulse Resp B/P (MAP) Pulse Ox O2 Delivery O2 Flow Rate FiO2 03/05/20 19:45 80 20 152/76 (101) 92 Room Air 03/05/20 13:44 96.5 Laboratory Data Labs 24H Laboratory Tests 2 03/05/20 13:56: POC Glucose (Misc Panel) 602*H, POC Sodium (Misc Panel) 128L, POC Potassium (Misc Panel) 5.3H, POC Chloride (Misc Panel) 92L, POC Total CO2 (Misc Panel) 25.0, POC Blood Urea Nitrogen (Misc Panel 14, POC Ionized Calcium (Misc Panel) 4.6, POC Creatinine (Misc Panel) 0.8, POC Hematocrit (Misc Panel) 36.0L 03/05/20 13:57: Prothrombin Time 35.6H, Prothromb Time International Ratio 3.46, Activated Partial Thromboplast Time 50.4H 03/05/20 13:58: Immature Granulocyte % (Auto) 0.2, Neutrophils (%) (Auto) 64.9, Lymphocytes (%) (Auto) 15.6L, Monocytes (%) (Auto) 13.0H, Eosinophils (%) (Auto) 4.2H, Basophils (%) (Auto) 2.1H, Neutrophils # (Auto) 3.8, Lymphocytes # (Auto) 0.9L, Monocytes # (Auto) 0.8, Eosinophils # (Auto) 0.2, Basophils # (Auto) 0.1, Nucleated Red Blood Cells % (auto) 0.0, Immature Platelet Fraction 10.4, Urine Color YELLOW, Urine Appearance CLEAR, Urine pH 6.0, Urine Specific [place] 1.030, Urine Protein 1+H, Urine Glucose (UA) 3+H, Urine Ketones NEGATIVE, Urine Blood 3+H, Urine Nitrite NEGATIVE, Urine Bilirubin NEGATIVE, Urine Urobilinogen 0.2, Urine Leukocyte Esterase NEGATIVE, Urine WBC (Auto) 2, Urine RBC (Auto) 2, Urine Hyaline Casts (Auto) 0, Urine Bacteria (Auto) NEGATIVE, Urine Squamous Epithelial Cells 0, Urine Mucus (Auto) SMALL, Urine Sperm (Auto) , Blood Gas Bicarbonate Standard 22.2, Venous Blood pH 7.344, Venous Blood Partial Pressure CO2 43.5, Venous Blood Partial Pressure O2 72.6H, Venous Blood Total Carbon Dioxide 24.5, Venous Blood HCO3 23.2, Venous Blood Oxygen Saturation 92.2H, Venous Blood Base Excess -2.6L, Anion Gap 10, Glomerular Filtration Rate > 60.0, Estimated Mean Plasma Glucose 341H, Hemoglobin A1c 13.5, Osmolality 304H, Calcium Level 8.9, Total Bilirubin 2.1H, Direct Bilirubin 0.8H, Aspartate Amino Transf (AST/SGOT) 663H, Alanine Aminotransferase (ALT/SGPT) 469H, Alkaline Phosphatase 97, Total Creatine Kinase 46234D, Creatine Kinase MB 55.5H, Creatine Kinase MB Relative Index 0.50, Troponin I 0.13H, Total Protein 6.0L, Albumin 2.0L, Albumin/Globulin Ratio 0.5, Lipase 113, B-Hydroxybutyrate 2.78 03/05/20 14:20: Coronavirus (COVID-19)(PCR) NEGATIVE, Influenza Type A (RT-PCR) NEGATIVE, Influenza Type B (RT-PCR) NEGATIVE, Respiratory Syncytial Virus (PCR) NEGATIVE 03/05/20 15:11: Bedside Glucose (Misc Panel) 583*H 03/05/20 16:26: Bedside Glucose (Misc Panel) 529*H 03/05/20 17:04: Ammonia 57H 03/05/20 17:43: Bedside Glucose (Misc Panel) 374H 03/05/20 18:46: Bedside Glucose (Misc Panel) 338H 03/05/20 20:07: Bedside Glucose (Misc Panel) 320H 03/05/20 21:36: Prothrombin Time 40.7H, Prothromb Time International Ratio 4.10 CBC/BMP Laboratory Tests 03/05/20 13:58 Plan / VTE VTE Prophylaxis Ordered?: Yes GME ATTESTATION GME ATTESTATION My faculty preceptor for this patient encounter was physically present during the encounter and was fully available. All aspects of the patient interview, examination, medical decision making process, and medical care plan development were reviewed and approved by the faculty preceptor. The faculty preceptor is aware and concurs with the plan as stated in the body of this note and will attest to such by his/her cosignature. ATTENDING NOTE I spoke with the Avni who tells me shes just been progressively getting worse over the past 10 years since his known her weaker and has a drop foot and doesnt use her cane often. He is worried that she takes too much of her opiates for her back pain. Regarding her mumbling difficult to understand speech she says she has no teeth and even he has a hard time understanding her most of the time so he doesnt think that this is different from her baseline. Anthony Frost MD Mar 05, 2020 22:06 CHERRI BEAL MD Mar 07, 2020 06:22
[2020-03-05 22:22] VITALS: BP 153/72
[2020-03-06] MEDS: rifAXIMin 550 MG TAB (XIFAXAN) PO SCH ×2 (00:19→08:34)
[2020-03-06] MEDS: LACTULOSE 20 GM/30 ML SYRUP UD PO SCH ×4 (00:20→18:00)
[2020-03-06] MEDS: NS 1,000 ML IV SCH ×2 (00:20→06:28)
[2020-03-06] MEDS ORDERED: oxyCODONE 5MG TAB PO ONE (03:00)
[2020-03-06 04:00] VITALS: BP 152/73
[2020-03-06 05:56] LABS: HEMATOCRIT 32.3 % (42.0-52.0); HEMOGLOBIN 11.1 g/dl (13.5-17.5); MEAN CORPUSCULAR HEMOGLOBIN 33.4 pg (27.0-33.0); MEAN CORPUSCULAR HGB CONC 34.4 g/dl (32.0-36.5); MEAN CORPUSCULAR VOLUME 97.3 fl (80.0-96.0); RED BLOOD COUNT 3.32 10^6/uL (4.30-6.10); WHITE BLOOD COUNT 7.1 10^3/uL (4.0-10.0)
[2020-03-06 05:59] LABS: PLATELET COUNT, AUTOMATED 89 10^3/uL (150-450)
[2020-03-06 06:31] LABS: ALBUMIN 1.9 GM/DL (3.2-5.2); ALT/SGPT 542 U/L (12-78); BILIRUBIN,TOTAL 1.6 MG/DL (0.2-1.0); BLOOD UREA NITROGEN 13 MG/DL (7-18); CALCIUM LEVEL 7.9 MG/DL (8.8-10.2); CARBON DIOXIDE LEVEL 22 MEQ/L (21-32); CHLORIDE LEVEL 108 MEQ/L (98-107); CREATININE FOR GFR 0.91 MG/DL (0.70-1.30); GLOMERULAR FILTRATION RATE > 60.0 (>49); GLUCOSE, FASTING 107 MG/DL (70-100); MAGNESIUM LEVEL 1.6 MG/DL (1.8-2.4); POTASSIUM SERUM 4.2 MEQ/L (3.5-5.1); SODIUM LEVEL 136 MEQ/L (136-145); TOTAL PROTEIN 5.5 GM/DL (6.4-8.2)
[2020-03-06] MEDS ORDERED: HumaLOG INSULIN (NovoLOG) PER UNIT SC SCH (07:30)
[2020-03-06] MEDS: HumaLOG INSULIN (NovoLOG) PER UNIT SC SCH ×3 (07:30→17:25)
[2020-03-06 08:00] VITALS: BP 127/64
[2020-03-06] MEDS: DOCUSATE SODIUM 100MG CAPSULE PO SCH (08:33)
[2020-03-06 08:34] VITALS: BP 127/68
[2020-03-06] MEDS ORDERED: MAG SULF 1GM/100ML (MAG RUN) 1 GM in IV 1 EA IV ONE (09:00)
[2020-03-06] MEDS ORDERED: THIAMINE 100 MG TAB PO SCH (09:00)
[2020-03-06] MEDS ORDERED: METOPROLOL TART 12.5 MG PER 1/2 TAB PO SCH (09:00)
[2020-03-06] MEDS ORDERED: lisinopriL 10 MG TAB PO SCH (09:00)
[2020-03-06] MEDS ORDERED: ASPIRIN 81 MG ENTERIC TAB PO SCH (09:00)
[2020-03-06 09:08] LABS: TROPONIN I 0.13 NG/ML (< 0.10)
--- NOTE | 2020-03-06 09:22 | ECGEPIP ---
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
[2020-03-06 12:00] VITALS: BP 144/67
--- NOTE | 2020-03-06 15:39 | DS.PDOC ---
Discharge Summary General Date of Admission Mar 05, 2020 at 20:30 Date of Discharge 03/06/19 Attending Physician: Lia Mcdonnell MD Discharge Summary HPI: Patient is a 64 year old patient with PMH of liver cirrhosis 2/2 to Hep C and alcohol abuse, CAD, IDDM, HTN who presented to the emergency department with altered mental status. Patient's family reports being confused since 3-5 days, and in extreme pain and sore muscles in his bilateral lower extremities, and weakness. He noticed he has been forgetful, at times not knowing where and what he was doing. He also reports having difficulty with his balance and frequent falls. He denies having any headache, nausea, vomiting, chest pain, abdominal pain. He mentions that he was admitted to the hospital multiple times for the same complaint. Or his who is very well versed in patient's history, they had recently moved to the area one year ago. He was previously following with a GI specialist in [place] but hasn't had time to follow up with [facility]. Also according to his his last alcoholic drink was November 2019. In the ER, VS were stable. BS 602, Na 128, K 5.3, LA 4.1 (appeared to be chronically elevated after trending in system), troponin 0.13, beta hydroxybutyrate negative, INR 3.46, UA negative ammonia 57, COVID negative, CK elevated at 11,123, bilirubin 1.6, VBG pH 7.344/PCO2 43.5. There was no documented episode of seizure or having been down for a long period of time at home. CXR neg. T abdomen and pelvis without contrast: mild cirrhosis, with nodular contorts but no ascites or splenomegaly at this point, extensive splenic varices suggesting portal hypertension, no acute surgical or inflammatory intra- abdominal or pelvic process. The patient was started on aggressive fluid hydration given multiple doses of insulin and admitted to the hospital floor for acute decompensated cirrhosis and hepatic encephalopathy, acute rhabdomyolysis and uncontrolled diabetes mellitus secondary to noncompliance with home medication. HOSPITAL COURSE: Statin medication and lisinopril were both held. The patient was continued on 150 mL/hr NSS over the evening. Home rifaximin, lactulose every 4 hours was continued. Repeat ammonia the morning after admission show to be improved at 32. Confusion persisted but improved mildly. CT head neg. Acetaminophen levels were low. Troponin remained elevated at 0.13 x 2 additional tests, patient denied chest pain with no tele changes overnight. Lactic acid remained elevated at 3.8, INR increased from 3.46 to 4.10, AST/ALT increased to 994/542 from 663/469 on admission, CK increased to 23,830 despite aggressive IV fluid hydration. The patient continued to complain of lower extremity pain. Due to increasing INR, worsening liver enzymes the decision was made to transfer to facility where gastroenterology consult was available. The patient's Adwoa was updated who agreed with the transfer. [facility] was contacted and accepted transfer. At the time of transfer on 03/06/2020 patient remained hemodynamically stable and denied chest pain, shortness of breath, fevers or chills. PAST MEDICAL HISTORY: Coronary artery disease status post SD in 2018 Hepatitis C treated 3 years ago by PCP in [place] Hypertension Diabetes mellitus type II Liver cirrhosis likely 2/2 to alcohol abuse and Hepatitis C History of hepatic encephalopathy TIA Endocarditis PAST SURGICAL HISTORY: Cholecystectomy Appendectomy SOCIAL HISTORY Denies smoking, quit smoking 20 years ago. Hx of alcohol use, last drink 11/2019 Denies illicit, or recreational drug use FAMILY HISTORY: Noncontributory ALLERGIES: Please see below DISCHARGE MEDICATIONS: Please see below PHYSICAL EXAMINATION: VS: please see below General: Patient is awake, alert but confused about time, place, reason for admission. He is communicative and cooperative on exam-improved from 03/05/20 Eyes: Conjunctiva clear, pupils equal round and reactive to light. HENT: Hearing bilateral normal. No nasal deviation, oropharynx clear with no lesions, moist oral mucosa Neck: supple, no masses, trachea midline. Cardiovascular: S1, S2, normal rhythm, no murmur, rub, or gallop. Pulses: Carotid, radial, posterior tibialis and pedal 3+ symmetric, no edema. Respiratory: Chest is clear to auscultation bilaterally. No rhonchi, wheezes or rubs. Abdomen: Midline scar noted, tenderness and palpation in the right upper quadrant, rest of the quadrants no tenderness, bowel sounds positive, no abdominal distention or caput medusae. Extremities: No clubbing or cyanosis, No edema. 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 LABORATORY: Please see below MICROBIOLOGY: UA neg IMAGING: CT head: Stable age related atrophy and microvascular ischemic changes. No acute intracranial hemorrhage, infarction, or mass/mass effect. CT abdomen and pelvis without contrast: mild cirrhosis, with nodular contorts but no ascites or splenomegaly at this point. Extensive splenic varices suggesting portal hypertension. No acute surgical or inflammatory intra-abdom inal or pelvic process. Large volume of colonic stool suggesting diffuse constipation. CXR: No acute cardiopulmonary process. ASSESSMENT: 64 -year-old male with known liver cirrhosis 2/2 to hepatitis C (treated) and alcohol abuse, DM on insulin, HTN, CAD, hx of TIA on coumadin admitted to acute inpatient for acute decompensated liver cirrhosis and hepatic encephalopathy, acute rhabdomyolysis, uncontrolled DM type II, supratherapeutic INR. PLAN: Acute decompensated liver cirrhosis and hepatic encephalopathy. -Mildly improved confusion with ammonia 57--> 32 this AM. -MELD- Na score is 29 points, Child- Strauss score class C(11 Points) -AST/ALT 663/469--> 994/542, bili improving -CT abd/pelvis above -Was previously following with GI specialist in [place] (>1 yr ago) but has not established with one in the local area. -Holding narcotics, lyrica currently- no signs of withdrawl -On lactulose, rifaximin. Allergic to spironolactone. -Transferring for patient to receive GI consultation Acute rhabdomyolysis possibly 2/2 to statin use? -+ lower ext pain persists -Despite being on NSS at 150 cc/hr overnight, [place] incr [place] 92398--> 51559 -Cr wnl with GFR >60 -Remains on NSS at 120 cc/hr currently, HD stable, no s/s of third spacing Supratherapeutic INR likely 2/2 to worsening liver cirrhosis, coumadin -Stopped coumadin -INR 3.46 --> 4.10 this AM, Goal 2-3 -No s/s of bleeding Elevated troponin, acute -Trop 0.13 x 3, CKMB 55 -ECG abnormal but same when compared to prior on file -No ST or T wave changes, no events on tele overnight -Last echo on file 03/2019: 1. Preserved LV systolic function. 2. Preserved RV systolic function. 3. Biatrial enlargement. 4. Mild mitral insufficiency. 5. Trace aortic and tricuspid insufficiency. 6. Intact atrial septum. 7. Left atrial appendage free of thrombi. 8. Normal flow in pulmonary veins. 9. Minimal thoracic atherosclerosis. -Denies chest pain, diaphoresis, n/v Lactic acidosis possibly 2/2 to chronic liver disease -LA 4.1-->3.8 -WBC wnl, afebrile -Not suspicious for sepsis, after trending it has always been chronically elevated (4- highest 6.8) -Nonetheless, on IVFs for above Diabetes Mellitus Type II -BS better controlled today at 108-204 -hbA1c 13.5 -On levemir 30 U HS, ISS and FS AC/HS, consistent carb diet -Hypoglycemic protocol. Chronic thrombocytopenia -PLTs 89 and at baseline -No s/s of bleeding Hypertension, chronic -BP systolic 120-150's systolic -Holding ACEi -On home metoprolol 12.5 MG PO daily Constipation -CT above -Bowel regimen in addition to lactulose History of alcohol abuse -Last drink 11/2019 per his -No s/s of withdrawl currently -On home thiamine History of falls - PT/OT History of CVA/TIA -Holding statin, warfarin -no focal deficits DVT prophylaxis -Supratherapeutic INR so holding warfarin, SCD and teds DISPOSITION: Transferring to [facility], accepting physician Dr. Youssef. Will need GI consultation. TIME SPENT ON DISCHARGE: Greater than 30 minutes. Vital Signs/I&Os Vital Signs Date Time Temp Pulse Resp B/P (MAP) Pulse Ox O2 Delivery O2 Flow Rate FiO2 03/06/20 12:00 99.3 72 17 144/67 (92) 97 Room Air I&O- Last 24 Hours up to 6 AM 03/06/20 05:59 Intake Total 3750 ml Output Total 275 ml Balance 3475 ml Laboratory Data Labs 24H Laboratory Tests 2 03/05/20 16:26: Bedside Glucose (Misc Panel) 529*H 03/05/20 17:04: Ammonia 57H 03/05/20 17:43: Bedside Glucose (Misc Panel) 374H 03/05/20 18:46: Bedside Glucose (Misc Panel) 338H 03/05/20 20:07: Bedside Glucose (Misc Panel) 320H 03/05/20 21:36: Prothrombin Time 40.7H, Prothromb Time International Ratio 4.10 03/05/20 21:40: Bedside Glucose (Misc Panel) 335H 03/06/20 00:16: Troponin I 0.13H 03/06/20 05:26: Nucleated Red Blood Cells % (auto) 0.0, Anion Gap 6L, Glomerular Filtration Rate > 60.0, Lactic Acid Level 4.1*H, Calcium Level 7.9L, Magnesium Level 1.6L, Total Bilirubin 1.6H, Aspartate Amino Transf (AST/SGOT) 994H, Alanine Aminotransferase (ALT/SGPT) 542H, Alkaline Phosphatase 87, Total Protein 5.5L, Albumin 1.9L, Albumin/Globulin Ratio 0.5 03/06/20 08:13: Total Creatine Kinase 77000#H, Troponin I 0.13H 03/06/20 08:15: Ammonia 32 03/06/20 08:33: Bedside Glucose (Misc Panel) 108 03/06/20 10:13: Lactic Acid Followup at 4 Hours 3.8*H 03/06/20 12:08: Bedside Glucose (Misc Panel) 204H CBC/BMP Laboratory Tests 03/06/20 05:26 FSBS Laboratory Tests Test 03/05/20 16:26 03/05/20 17:43 03/05/20 18:46 03/05/20 20:07 Range/Units Bedside Glucose (Misc Panel) 529 374 338 320 80-115 MG/DL Test 03/05/20 21:40 03/06/20 08:33 03/06/20 12:08 Range/Units Bedside Glucose (Misc Panel) 335 108 204 80-115 MG/DL Discharge Medications Scheduled Docusate Sodium (Dok) 100 Mg Capsule, 100 MG PO BID Insulin Detemir (Levemir) 100 Unit/1 Ml Vial, 30 UNITS SC QHS Insulin Human Lispro (Humalog) 100 Unit/1 Ml Vial, 0 UNITS SC QHS Insulin Human Lispro (Humalog) 100 Unit/1 Ml Vial, 0 UNITS SC AC Lactulose (Lactulose) 10 Gm/15 Ml Solution, 40 ML PO Q6H, (Reported) Metoprolol Tartrate (Metoprolol Tartrate) 25 Mg Tablet, 12.5 MG PO DAILY, (Reported) Rifaximin (Xifaxan) 550 Mg Tablet, 550 MG PO BID, (Reported) Thiamine HCl (Thiamine HCl) 100 Mg Tablet, 100 MG PO DAILY, (Reported) Scheduled PRN Capsaicin (Capsaicin) 0.025% Cream..g., 1 DOSE TOP BID PRN for PAIN, (Reported) APPLY TO BACK Carboxymethylcellulose Sodium (Refresh Tears) 15 Ml Drops, 1 DROP OU TID PRN for DRY EYES, (Reported) Dextrose (Glucose) 4 Gm Tab.chew, 0 GM PO ASDIRECTED PRN for SEE LABEL COMMENTS Dextrose (Dextrose 50%-Water Syringe) 50 Ml Syringe, 25 ML IV ASDIRECTED PRN for SEE LABEL COMMENTS Glucagon,Human Recombinant (Glucagen) 1 Mg/1 Ml Vial, 1 MG SC ASDIRECTED PRN for SEE LABEL COMMENTS Allergies Coded Allergies: egg (Verified Allergy, Unknown, 04/07/19) gabapentin (Verified Adverse Reaction, Intermediate, nausea vomiting, 04/03/19) spironolactone (Verified Adverse Reaction, Unknown, gynecomastia, 12/19/18) Lia Mcdonnell MD Mar 06, 2020 15:39
[2020-03-06 16:00] VITALS: BP 141/67
--- NOTE | 2020-03-06 16:05 | REP ---
INDICATION: AMS COMPARISON: 11/24/2019 TECHNIQUE: Axial noncontrast images from the skull base to the thoracic inlet with coronal reformations. This CT examination was performed using the following dose reduction techniques: Automated exposure control, adjustment of mA and/or kv according to the patient's size, and use of iterative reconstruction technique. FINDINGS: Age-related atrophy with periventricular leukomalacia and microvascular ischemic changes are appreciated. The ventricles and sulci are symmetric. Hunt-white differentiation is maintained. There is no evidence for acute intracranial hemorrhage, mass/mass effect, pathology or infarction. No extra-axial fluid collection. Calvarium is intact. Paranasal sinuses and mastoid air cells are clear. IMPRESSION: Stable age related atrophy and microvascular ischemic changes. No acute intracranial hemorrhage, infarction, or mass/mass effect. <Electronically signed by Francois Barroso > 03/06/20 1365
[2020-03-06 16:22] LABS: ACETAMINOPHEN LEVEL < 2.0 UG/ML (10.0-30.0)
[2020-03-06] MEDS ORDERED: NS 1,000 ML IV SCH (16:30)
[2020-03-06] MEDS ORDERED: DEXT50SY3 IV (16:32)
[2020-03-06] MEDS ORDERED: INSUHUMDS SC ×2 (16:32)
[2020-03-06] MEDS ORDERED: DOK1CAP7 PO (16:32)
[2020-03-06] MEDS ORDERED: GLUC1INJ21 SC (16:32)
[2020-03-06] MEDS ORDERED: GLUC4GMTAB PO (16:32)
[2020-03-06] MEDS ORDERED: INSUDET SC (16:32)
[2020-03-06] MEDS ORDERED: WARFARIN SOD 4MG TAB PO SCH (17:00)
== END 2020-03-06 18:40 | disposition short-term general hospital (02) | DRG 433 ==
LOC: M ED 13:32 → M ED INP 20:30 → M PCU 22:22
PROVIDERS: ADMIT Family Medicine; ATTEND Internal Medicine
DX: K74.60 Unspecified cirrhosis of liver (principal); M62.82 Rhabdomyolysis; E11.9 Type 2 diabetes mellitus without complications; K59.00 Constipation, unspecified; R29.6 Repeated falls; I10 Essential (primary) hypertension; Z86.73 Personal history of transient ischemic attack (TIA), and cerebral infarction without residual deficits; B18.2 Chronic viral hepatitis C; K72.90 Hepatic failure, unspecified without coma; Z91.19 Patient's noncompliance with other medical treatment and regimen; Z79.4 Long term (current) use of insulin; Z79.899 Other long term (current) drug therapy; Z88.8 Allergy status to other drugs, medicaments and biological substances; Z91.012 Allergy to eggs

== ENCOUNTER 2020-04-01 15:43 | Inpatient (IN) | payer OTHER ==
[~2020-04-01] VITALS: Ht 177.8 cm; Wt 60.4 kg
[~2020-04-01 15:43] MED LIST changes: +ATOR80TA59 PO; +DEXT50SY3 IV; +DOK1CAP7 PO; +GLUC1INJ21 SC; +GLUC4GMTAB PO; +INSUDET SC; +INSUHUMDS SC; +NOVOINJ3 SC; +VITA50005 PO
--- OUTSIDE RECORDS SUMMARY | 2020-04-01 15:51 | CCD | Summary of Care ---
Author Author [facility] Address Unknown Phone Unavailable Care Team Providers Care Risk Modeler Name Role Phone Lizet Zabala SURGICAL ASSIST PCP Reason for Visit * Auth/Cert Referred By Contact Referred To Contact Status Reason Specialty Diagnoses / Procedures Diagnoses hepatic encephalopaty, rhabdo, AMS Hepatic encephalopathy Encounter Details Care Team Description Date Type Department Nayely Youssef MD [address] [place] [address] [phone] Nate Mccormick MD [address], [address] [place] [address] [phone] Marcellus Saunders MD [address] [place] [address] Tomasz Dorsey MD [address] [place] [address] [phone] Pillo Boyle MBBS [address] [place] [address] [phone] 03/06/2020 [facility] INP ATIENT - Encounter 03/10/[address] [place] [address] Allergies Comments Active Allergy Reactions Severity Noted Date Eggs Or Egg-Derived Itching 03/06/2020 Products Gabapentin Nausea And 03/06/2020 Vomiting Gynaecomastia Spironolactone Other (See 03/06/2020 Comments) documented as of this encounter (statuses as of 03/10/2020) Medications End Date Status Medication Sig Dispensed Refills Start Date Active Aspirin 81 MG Oral Tablet Take 81 mg by 0 Delayed Release mouth daily Active Atorvastatin Calcium 80 Take 40 mg by 0 MG Oral Tablet (LIPITOR) mouth daily Active Capsaicin 0.025 % Apply 0 External Cream (ZOSTRIX) topically Two Times Daily Active Carboxymethylcellulose Place 1 drop 0 Sod PF 0.5 % Ophthalmic into both Solution (REFRESH PLUS) eyes Three times daily as needed Active Vitamin D Take 50,000 0 (Ergocalciferol) 1.25 MG Units by (84561 UT) Oral Capsule mouth every 7 (ERGOCALCIFEROL) (seven) days On Sunday Active Insulin Aspart 100 Inject into 0 UNIT/ML Subcutaneous the skin Solution Pen-injector Three times (NOVOLOG FLEXPEN) daily before meals Per sliding scale Active Insulin Glargine 100 Inject 20 0 UNIT/ML Subcutaneous Units into Solution (LANTUS) the skin nightly Active Lactulose 10 GM/15ML Oral Take 40 mLs 0 Solution (CHRONULAC) by mouth every 6 (six) hours Active Lisinopril 20 MG Oral Take 10 mg by 0 Tablet (ZESTRIL) mouth daily Active Metoprolol Tartrate 25 MG Take 12.5 mg 0 Oral Tablet (LOPRESSOR) by mouth daily Active oxyCODONE HCl 5 MG Oral Take 5 mg by 0 Tablet (ROXICODONE) mouth every 4 (four) hours as needed for PainMax daily dose of 5 tabs Active Pregabalin 150 MG Oral Take 150 mg 0 Capsule (Lyrica) by mouth Two Times Daily Active rifAXIMin 550 MG Oral Take 550 mg 0 Tablet (XIFAXAN) by mouth Two Times Daily Active Thiamine HCl 100 MG Oral Take 100 mg 0 Tablet (B-1) by mouth daily Active Warfarin Sodium 2 MG Oral Take 4 mg by 0 Tablet (COUMADIN) mouth daily 03/10/2021 Active Furosemide 40 MG Oral Take 1 tablet 30 tablet 11 Tablet (LASIX) by mouth 1 daily 03/10/2021 Active Spironolactone 100 MG Take 1 tablet 30 tablet 11 Oral Tablet (ALDACTONE) by mouth 1 daily documented as of this encounter (statuses as of 03/10/2020) Active Problems Problem Noted Date Decompensated hepatic cirrhosis 03/07/2020 Coagulopathy 03/07/2020 Non-traumatic rhabdomyolysis 03/07/2020 Thrombocytopenia 03/07/2020 Macrocytic anemia 03/07/2020 Transaminitis 03/07/2020 Edema due to hypoalbuminemia 03/07/2020 Hyperglycemia due to diabetes mellitus 03/07/2020 Heart murmur, systolic 03/07/2020 Metabolic acidosis 03/07/2020 Hepatic encephalopathy 03/06/2020 Type 2 diabetes mellitus, with long-term current use of insulin 03/06/2020 Alcoholic cirrhosis of liver without ascites 021 Chronic hepatitis C without hepatic coma 03/06/2020 Overview: Treated 3 years ago by PCP in [place] CAD (coronary artery disease) 03/06/2020 Overview: S/p [place] in 2018 Essential hypertension 03/06/2020 Falls frequently 03/06/2020 documented as of this encounter (statuses as of 03/10/2020) Social History Date Tobacco Use Types Packs/Day Years Used Unknown If Ever Smoked Drinks/Week oz/Week Comments Alcohol Use Not Currently Sex Assigned at Date Recorded Not on file Date Recorded COVID-19 Exposure Response 03/06/2020 10:04 PM EST In the last month, have you been in contact with Hilda ble to assess someone who was confirmed or suspected to have Coronavirus / COVID-19? documented as of this encounter Last Filed Vital Signs Reading Time Taken Comments Vital Sign 120/66 03/10/2020 3:22 PM EST Blood Pressure 70 03/10/2020 3:22 PM EST Pulse 36.8 C (98.2 F) 03/10/2020 3:22 PM EST Temperature 18 03/10/2020 3:22 PM EST Respiratory Rate 93% 03/10/2020 3:22 PM EST Oxygen Saturation - - Inhaled Oxygen Concentration 70.8 kg (156 lb) 03/07/2020 2:00 PM EST Weight 177.8 cm (5' 10") 03/07/2020 2:00 PM EST Height 22.38 03/07/2020 2:00 PM EST Body Mass Index documented in this encounter Progress Notes * Mayi Gutierrez RN - 03/10/2020 3:33 PM EST Patient discussed in rounds, and is medically ready for D/C today. CM called carolyn to review GRICEL questions, and submitted for approval. Assessment of home care needs for people being discharged after COVID-19 exposur e. Yes No Conditions X Is the patient stable enough to be at home? X Are there appropriate caregivers available a home? X Is there a separate bedroom for the patient without sharing immediate space w ith others? X Is there a separate bathroom for the patient to use? X Does the patient have their own working thermometer? X Are resources for access to food, medication and other necessities available? x Does the patient have access to appropriate, recommended personal protective equipment (at a minimum facemask)? X Are there household members who may be at increased risk of complications fro m COVID-19 infection? (e.g., people >65 years old, young children, women, immunocompromised, or chronic health conditions? X Does patient required additional home care services upon discharge? X Has primary care provider been notified? If not, please notify before dischar ge. How will the patient be transported home? Comments: The patient's is high risk for COVID and nervous about taking t he home. Dr. Boyle spoke with the and all questions answered. She will be transporting the patient to home. CM received a call from his HC through the [facility]. He currently receives a RN visit once every 3 weeks for a med pour. Discuss ed about adding in PT/OT, and he will put in for a home eval. He is requesting for COVID results, D/C paperwork, and summary to be faxed to his PCP office (Elias Zabala NP) at [phone]. Information faxed per request. Patient has been provided with a COVID comfort kit WITH AN OXIMETER. No further needs for D/C today. * Shelly Sinclair RN - 03/10/2020 3:32 PM EST Patient discharged to home. AVS reviewed with patient and Maya via telephon e. Patient and states understanding of discharge instructions. No questions or concerns at this time. Vital signs stable, IV's removed, COVID-19 care bag g iven. Patient awaiting transport to [facility] for pickup by . * Caesar Amaral, PharmD - 03/10/2020 1:53 PM EST Pharmacy Medication History Review Prior to Admission Medications Prescriptions Last Dose Informant Patient Reported? Taking? Aspirin 81 MG Oral Tablet Delayed Release Pharmacy Yes Yes Sig: Take 81 mg by mouth daily Atorvastatin Calcium 80 MG Oral Tablet (LIPITOR) Pharmacy Yes Yes Sig: Take 40 mg by mouth daily Capsaicin 0.025 % External Cream (ZOSTRIX) Pharmacy Yes Yes Sig: Apply topically Two Times Daily Carboxymethylcellulose Sod PF 0.5 % Ophthalmic Solution (REFRESH PLUS) Pharmacy Yes Yes Sig: Place 1 drop into both eyes Three times daily as needed Insulin Aspart 100 UNIT/ML Subcutaneous Solution Pen-injector (NOVOLOG FLEXPEN) Pharmacy Yes Yes Sig: Inject into the skin Three times daily before meals Per sliding scale Insulin Glargine 100 UNIT/ML Subcutaneous Solution (LANTUS) Pharmacy Yes Yes Sig: Inject 20 Units into the skin nightly Lactulose 10 GM/15ML Oral Solution (CHRONULAC) Pharmacy Yes Yes Sig: Take 40 mLs by mouth every 6 (six) hours Lisinopril 20 MG Oral Tablet (ZESTRIL) Pharmacy Yes Yes Sig: Take 10 mg by mouth daily Metoprolol Tartrate 25 MG Oral Tablet (LOPRESSOR) Pharmacy Yes Yes Sig: Take 12.5 mg by mouth daily Pregabalin 150 MG Oral Capsule (Lyrica) Pharmacy Yes Yes Sig: Take 150 mg by mouth Two Times Daily Thiamine HCl 100 MG Oral Tablet (B-1) Pharmacy Yes Yes Sig: Take 100 mg by mouth daily Vitamin D (Ergocalciferol) 1.25 MG (74501 UT) Oral Capsule (ERGOCALCIFEROL) Pha rmacy Yes Yes Sig: Take 50,000 Units by mouth every 7 (seven) days On Sunday Warfarin Sodium 2 MG Oral Tablet (COUMADIN) Pharmacy Yes Yes Sig: Take 4 mg by mouth daily oxyCODONE HCl 5 MG Oral Tablet (ROXICODONE) Pharmacy Yes Yes Sig: Take 5 mg by mouth every 4 (four) hours as needed for PainMax daily dose o f 5 tabs rifAXIMin 550 MG Oral Tablet (XIFAXAN) Pharmacy Yes Yes Sig: Take 550 mg by mouth Two Times Daily Facility-Administered Medications: None The following medications have been added: The following medications have been removed: The following medications have been modified: The patient takes the following medications differently than prescribed: Medication History Source: [facility] [phone] ext [phone] The above prior to admission medications have been compared to current inpatient orders. Discrepancies: 1) Aspirin, atorvastatin, lactulose, Vitamin D 15142I held on admission (warfari n also held intentionally per notes) 2) Home lisinopril dose is 10mg daily, 5mg ordered on admission Recommendations: 1) Consider restarting above home medications when clinically appropriate Medication history was completed based on information available during this charito ent encounter, the list above may not be all inclusive. Thank you, Caesar Amaral Pharm.D., BCPS * Juan J Mina Moody, PT - 03/10/2020 11:18 AM EST Physical Therapy Acute Care Encounter Note Medical Diagnosis: COVID-19 infection Hepatic encephalopathy Decompensated cirrhosis Nausea and constipation Rhabdomyolysis Type II Diabetes Mellitus Essential hypertension Falls history History of TIA and CVA Thrombocytopenia Rehabilitation Precautions/Restrictions: Activity: OOB w/ assistance High fall risk Precautions: Enhanced airborne with eyewewar, contact Precautions: Hazardous drugs Precautions: Thrombocytopenia Goal Review Visit Number: 4 SUBJECTIVE Patient Report: Patient is agreeable to therapy session. Pain: Patient has no complaints of pain currently. Pain Medication Today: no. OBJECTIVE General Observation: Patient appeared supine in bed in no apparent distress. No bed alarm noted at start of session. Skin Integrity Screen: All visible skin appears grossly intact. Vital Signs: Stable. Functional Status: Transfers: Patient transferred sit to/from stand requiring supervision. Patient used the following equipment: rolling walker. Bed Mobility: Patient moves from supine to/from sit with independence. Locomotion/Gait/Ambulation: Patient was supervision with gait/ambulation for 3 trials of approximately 72ft each . Patient requires the following assistive device(s): Rolling walker. Patient demonstrates decreased bilateral step length, blanche, slight kyphotic posture. Stairs: Patient was requiring supervision for 3 steps up and down . Patient used the following equipment: Unilateral Railing. Outcome Measures: [facility] "6 Clicks" Basic Mobility Inpatient Short Form: Turning over in bed: No difficulty (4) Sitting down on and standing up from a chair with arms: A little difficulty (3) Moving from lying on back to sitting on the side of the bed: No difficulty (4) Moving to and from a bed to a chair (including a wheelchair): A little help (3) Walking in hospital room: A little help (3) Climbing 3-5 steps with a railing: A little help (3) Raw Score 20 /24. Interventions: Gait Training: Therapist facilitated patient ambulating for 3 trials of approximately 72ft each with a rolling walker and supervision. Patient required a seated rest break between trials of ambulation. Patient demonstrates decreased step length, blanche, narrow base of support. Patient requires verbal cuing to increase step length and blanche. Therapist facilitated patient negotiating 3 stairs with use of unilateral hand rail and supervision. Patient required verbal cuing for proper sequence of movements. Education: Mode of education provided: Explanation. Audience: Patient. Education Provided: Bed mobility. Functional transfers. Gait. Safety. Plan of care. Treatment plan. Safe mobility. Role of acute PT. Precautions. Safe mobility techniques. Response: Indicates understanding. Verbalized understanding. ASSESSMENT Response to Visit: The session was tolerated well. Bed alarm was on at end of session. Call yip was in patient's reach at end of session. Pain: Patient has no complaints of pain currently. PLAN Treatment Frequency, Duration and Interventions: Restorative Physical Therapy is recommended for 5x/week for 4 weeks. Treatment is to include: Gait Training. Neuromuscular Re-education. Therapeutic Activity. Therapeutic Exercise. Self Care/Home Management. Recommended Physical Therapy Follow Up: Upon acute care discharge, the following is currently recommended: home with 25/09 support and assistance and Home PT. Equipment Provided: None issued this visit. Visit Number: Today's visit is number 4 Program: COVID (Therapist may be reached on [employer]) SESSION: Duration: 38 CHARGES: - ORDER - Physical Therapy Treatment 1 Units 80259 - CHARGE - PT GAIT TRNG - 15 MIN 3 Units - COVID Visit 1 Units Total treatment minutes: 38.00 Minutes Electronically Signed by: Juan J Mina PT, DPT, 03/10/2020 11:30:23 AM * Hussein Vu, OT - 03/10/2020 10:52 AM EST Occupational Therapy Acute Care Missed Visit Note Location: Bedside. Attempted to visit patient for therapy, but was unable for the following reasons: Treatment not completed secondary to scheduling conflict. pt currently working with PT, will re-attempt later as schedule allows. (Therapist may be reached on [employer]) SESSION: Duration: 0 CHARGES: - ORDER - Occupational Therapy Treatment 1 Units - CHARGE-IP OT SCHEDULING CONFLICT 1 Units Total treatment minutes: 0.00 Minutes Electronically Signed by: AILYN Palomo/Moody, 03/10/2020 10:54:05 AM * Chong Owens - 03/09/2020 4:49 PM EST I phoned Mr. Padilla as part of the [facility] Care Remote Access Team rou nding remotely on his floor. He did not answer the phone. Rev. Chong Owens * Hussein Vu OT - 03/09/2020 12:59 PM EST Occupational Therapy Acute Care Encounter Note Medical Diagnosis: Hepatic Encephalopathy Decompensated cirrhosis secondary to alcoholic liver disease Rhabdomyolysis Rehabilitation Precautions/Restrictions: Activity: OOB w/ assistance High fall risk Precautions: Enhanced airborne with eyewewar, contact Precautions: Hazardous drugs Precautions: Thrombocytopenia Goal Review Visit Number: 3 SUBJECTIVE Patient Report: "I have trouble with my memory" Pain: Patient currently complains of pain. Location: L calf . Patient describes pain as Nonspecific. Verbal Scale: Patient reports a pain level of 5 out of 10. Will perform therapy only as tolerated. Pain Medication Today: no. OBJECTIVE General Observation: pt recived sitting in recliner with LEs elevated and SEDs donned. No chair alarm noted at start of session. Skin Integrity Screen: All visible skin appears grossly intact. Vital Signs: Stable. Self Care/Home Management: No Self [facility] Management treatment provided Splinting: No splint issued today. Cognitive Test Score: mini mental score = 28 clock drawing test: impaired. Outcome Measures: [facility] AM-PAC "6 Clicks" Daily Activity Inpatient Short Form: Putting on and taking off regular lower body clothing: A little assistance (3) Bathing (including washing, rinsing, and drying): A little assistance (3) Toileting (including use of toilet, bedpan, or urinal): A little assistance (3) Putting on and taking off regular upper body clothing: No assistance (4) Taking care of personal grooming such as brushing teeth: No assistance (4) Eating meals: No assistance (4) Raw Score: 21 /24 Interventions: Therapeutic Activities: Therapist facilitated administration of the mini mental state exam + the clock drawing test. Therapist educated pt on purpose of assessments. Pt scored a 28 on the mini mental falling within norm range. However of note pt had points deducted for short term recall and visual-spatial orientation. On the clock drawing test pt did not pass due to visual spatial difficulties and failure to place the hands on the clock to identify the time. Pt instead wrote outside the close "10" above both the 10 marker and 2 marker. Therapist discussed safe discharge planning with pt regarding IADLs, driving, and medication management. Therapist left pt with needs met at this time. Education: Mode of education provided: Explanation. Audience: Patient. Education Provided: plan of care, purpose of assessment . Response: Applied knowledge. ASSESSMENT Response to Visit: The session was tolerated fair, as evidenced by: decreased short term recall Call yip was in patient's reach at end of session. Pain: Patient has no complaints of pain currently. PLAN Treatment Frequency, Duration and Interventions: Restorative Occupational Therapy recommended for 5x/week for four weeks Treatment is to include: Development of Cognitive Skills. Neuromuscular Re-education. Self Care/Home Management. Therapeutic Activity. Therapeutic Exercise. Recommended Occupational Therapy Follow Up: Upon acute care discharge, the following is currently recommended: anticipate pt can return home with supervision for mobility/ADLs from Visit Number: Today's visit is number 3 Program: COVID (Therapist may be reached on [employer]) SESSION: Duration: 23 CHARGES: - ORDER - Occupational Therapy Treatment 1 Units 88687 - CHARGE - OT THEREAPEUTIC ACT 15 MIN 2 Units - COVID Visit 1 Units Total treatment minutes: 23.00 Minutes Electronically Signed by: AILYN Palomo/Moody, 03/09/2020 4:24:35 PM * Juan J Mina, PT - 03/09/2020 12:10 PM EST Physical Therapy Acute Care Encounter Note Medical Diagnosis: COVID-19 infection Hepatic encephalopathy Decompensated cirrhosis Nausea and constipation Rhabdomyolysis Type II Diabetes Mellitus Essential hypertension Falls history History of TIA and CVA Thrombocytopenia Rehabilitation Precautions/Restrictions: Activity: OOB w/ assistance High fall risk Precautions: Enhanced airborne with eyewewar, contact Precautions: Hazardous drugs Precautions: Thrombocytopenia Goal Review Visit Number: 3 SUBJECTIVE Patient Report: Patient is agreeable to therapy session. Pain: Patient currently complains of pain. Location: sacral region . Patient describes pain as Nonspecific. Verbal Scale: Patient reports a pain level of 5 out of 10. Will inform nurse. Pain Medication Today: no. OBJECTIVE General Observation: Patient appeared seated in a chair in no apparent distress. Chair alarm was on at start of session. Skin Integrity Screen: All visible skin appears grossly intact. Vital Signs: Stable. Functional Status: Transfers: Patient transferred sit to/from stand requiring stand by assistance. Patient used the following equipment: Arms of chair. Patient used the following equipment: rolling walker. Patient used the following equipment: Gait belt - use per hospital policy. Bed Mobility: Not assessed. Locomotion/Gait/Ambulation: Patient was stand by assist with gait/ambulation for approximately 72ft . Patient requires the following assistive device(s): Rolling walker. Gait belt. Patient demonstrates decreased step length, blanche, narrow base of support. Stairs: Not assessed. Outcome Measures: [facility] "6 Clicks" Basic Mobility Inpatient Short Form: Turning over in bed: No difficulty (4) Sitting down on and standing up from a chair with arms: A little difficulty (3) Moving from lying on back to sitting on the side of the bed: No difficulty (4) Moving to and from a bed to a chair (including a wheelchair): A little help (3) Walking in hospital room: A little help (3) Climbing 3-5 steps with a railing: A little help (3) Raw Score 20 /24. Interventions: Gait Training: Therapist facilitated patient ambulating for approximately 72ft with a rolling walker and stand by assistance x 1. Patient demonstrates decreased step length, blanche, narrow base of support. Patient requires verbal cuing to increase step length and blanche. Education: Mode of education provided: Explanation. Audience: Patient. Education Provided: Bed mobility. Functional transfers. Gait. Safety. Plan of care. Treatment plan. Safe mobility. Role of acute PT. Precautions. Safe mobility techniques. Response: Indicates understanding. Verbalized understanding. ASSESSMENT Response to Visit: The session was tolerated well. Call yip was in patient's reach at end of session. Chair alarm was on at end of session. Pain: Patient has no complaints of pain currently. PLAN Treatment Frequency, Duration and Interventions: Restorative Physical Therapy is recommended for 5x/week for 4 weeks. Treatment is to include: Gait Training. Neuromuscular Re-education. Therapeutic Activity. Therapeutic Exercise. Self Care/Home Management. Recommended Physical Therapy Follow Up: Upon acute care discharge, the following is currently recommended: Pending continued mobility assessment, including increased ambulation and stair negotiation, anticipate home with 25/09 support and assistance and Home PT. Equipment Provided: None issued this visit. Visit Number: Today's visit is number 3 Program: COVID (Therapist may be reached on [employer]) SESSION: Duration: 30 CHARGES: - ORDER - Physical Therapy Treatment 1 Units 40306 - CHARGE - PT GAIT TRNG - 15 MIN 2 Units - COVID Visit 1 Units Total treatment minutes: 30.00 Minutes Electronically Signed by: Juan J Mina PT, DPT, 03/09/2020 12:24:53 PM * Bteo Nguyen RN - 03/09/2020 7:25 AM EST Assumed care of this pt at 2300, pt refusing telemetry and is at the bedside. Pt refused masimo, and bed alarm. Pt educated on the purpose of these safety preca utions, along with consequences associated with refusing. Pt is still refusing a t this time. * Virginie Alcazar RN - 03/08/2020 6:22 PM EST Approx. 1600 This RN entered room to find bed alarm off, masimo, and telemetry r emoved from pt. This RN tried to place masimo and tele on pt, but pt is refusing at this time. RN educated pt on reason to wear equipment and possible consequen pina for not wearing them. Pt still refusing at this time. * Mayi Gutierrez RN - 03/08/2020 3:04 PM EST Case Management Screen & Assessment Patient Name: Francois Padilla Gender: male Date of : 1955 Admission Dx: hepatic encephalopaty, rhabdo, AMS Hepatic encephalopathy Age: 64 y.o. Admission: 03/06/2020 7:53 PM Attending Provider: Marcellus Saunders MD High Risk Criteria - Prior to Admission/Upon Arrival [place]-Type of Residence: Private Residence [place]- Home Care Services: Yes [facility]- Type of Home Care Services: Nurse Limited Home Supports/Lives Alone?: No Multi trauma/Critical care/Step down admit?: No Head/Spinal cord injury?: No Self Pay: No Multiple ED visits?: No Related/Unplanned readmission within 30 days?: No Complex/New medical issues: AMS, persistent BLE pain, and COVID + Relevant comorbidities: ETOH abuse, Type 2 DM, cirrhosis, Hep C, TIA, and s/p [place] in 2018 Screening Outcome Further Case Management Needs?: Case Management Needs Chart Review PCP Verified?: Patient has PCP Prior to Admission: Functional/Environmental Assessment Bathing: Needs assistance Dressing: Needs assistance Toileting: Needs assistance Medication administration: Needs assistance Transfers: Needs assistance Ambulation: Needs assistance Meal preparation: Needs assistance Number of stairs into home: 3 Number of stairs to bathroom: 0 Number of stairs to bedroom: 0 Durable Medical Equipment (DME): Walker, Cane, Grab bars DME Company Name: [place] Potential Barriers/Teaching Needs Physical: PT/OT Discharge Planning Living Arrangements: Spouse/significant other Support Systems: Spouse/significant other, Children, Family members, Friends/george cali, Home care staff Type of Residence: Private residence Is this patient appropriate for transfer to [facility]?: No Patient/family informed of need for discharge planning?: Yes Patient expects to be discharged to:: Home with assistance from family Patient/Agent informed of choice and given written list?: Patient/agent declined list Actual discharge location : Home-With Homecare Services Does the patient need discharge transport arranged?: No Note: Patient is a 64 year old male admitted from an OSH for a GI consult. AGUSTÍN c alled the patient's , Maya, to discuss role of CM and D/C planning. SILVER BRAZER, th e patient lived at home with his , and she assisted the patient in his ADL's . There are 3 MOHAN the home, and then living area is on one level. He receives his care through the [facility], and uses the [facility] for his home pharmacy. There is a cane, RW, and grab bars at home. [facility] or [facility] raised toilet seat, but now d/t the patient's COVID + status this instillat ion will be delayed. Maya reported that he was also receiving HC through the [facility] . Maya is questioning the COVID + result, as he had 2 previous negative results. Encouraged her to reach out to the providers to discuss. Maya states that he lyons d one at the ED at [facility] and also a second one right before tx to [facility] and [facility] were negative. CM called [facility] ([phone]), and VM left that the patient has been tx from [facility] to [facility]. CM also called [facility], and message left to confirm what HC services the patient was receiving. CM will continue to follow. Mayi Gutierrez * Mitzi Alonzo RN - 03/08/2020 2:52 PM EST Patient refusing telemetry, continuous oxygen monitoring and bed alarms, provide r aware. Patient educated on safety of all orders, and need for assistance when ambulating.Patient still refused alarm. 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 Pain Medication Today: no. OBJECTIVE General Observation: pt recived supine in bed in NAD No bed alarm noted at start of session. Skin Integrity Screen: All visible skin appears grossly intact. Vital Signs: Stable. Self Care/Home Management: Bathing: Supervision. Graded task to improve physical/cognitive functioning. Splinting: No splint issued today. Cognitive Test Score: impaired attention score = Outcome Measures: [facility]-PAC "6 Clicks" Daily Activity Inpatient Short Form: Putting on and taking off regular lower body clothing: A little assistance (3) Bathing (including washing, rinsing, and drying): A little assistance (3) Toileting (including use of toilet, bedpan, or urinal): A little assistance (3) Putting on and taking off regular upper body clothing: A little assistance (3) Taking care of personal grooming such as brushing teeth: A little assistance (3) Eating meals: No assistance (4) Raw Score: supervision for safety Interventions: Self Care/Home Management: Therapist facilitated full ADL this session. Therapist provided environmental modification and verbal cues for just-right challenge to promote independence. Therapist then facilitated supine to sit transfer EOB in prep for simulated commode transfer to bedside chair with supervision + verbal cues without assistive device. Therapist then facilitated unsupported bathing routine, further challenging pt to reach outside of base of support for improved dynamic sitting balance. Therapist provided supervision + cues for thoroughness and sequencing. Therapist off loaded heels, and left pt with call yip and needs met at this time. Education: Mode of education provided: Explanation. Audience: Patient. Education Provided: safety, ADL, plan of care, use of call yip . Response: Applied knowledge. ASSESSMENT Response to Visit: The session was tolerated fair, as evidenced by: impaired attention Call yip was in patient's reach at end of session. Chair alarm was on at end of session. Patient's heels offloaded at end of session. Pain: Patient has no complaints of pain currently. PLAN Treatment Frequency, Duration and Interventions: Restorative Occupational Therapy recommended for 5x/week for four weeks Treatment is to include: Development of Cognitive Skills. Neuromuscular Re-education. Self Care/Home Management. Therapeutic Activity. Therapeutic Exercise. Recommended Occupational Therapy Follow Up: Upon acute care discharge, the following is currently recommended: anticipate pt can return home with 24/ supervision for safety and decreased cognition Visit Number: Today's visit is number 2 Program: COVID (Therapist may be reached on [employer]) SESSION: Duration: 23 CHARGES: - ORDER - Occupational Therapy Treatment 1 Units 66071 - CHARGE - OT SELF CARE ADL TRAIN-15 MIN 2 Units - COVID Visit 1 Units Total treatment minutes: 23.00 Minutes Electronically Signed by: Hussein Vu OTR/L, 03/08/2020 3:56:45 PM * Marcellus Saunders MD - 03/08/2020 1:00 PM EST Internal Medicine Inpatient Progress Note Subjective Patient seen and examined by me at the bedside this morning. He is resting comfo rtably in bed after having eaten his breakfast. He told me that he had three bow el movements yesterday. Overnight he removed his telemetry because he did not wa nt to wear it. He is refusing to have his doppler ultrasound today because he sa id it makes his stomach uncomfortable. He is also refusing to have his spironola ctone because he "does not want to pee anymore". Review of Systems Constitutional: Positive for fatigue. Negative for activity change, appetite emily nge, chills and fever. HENT: Negative for congestion, sinus pain and sore throat. Respiratory: Negative for cough, chest tightness, shortness of breath and wheezi ng. Cardiovascular: Negative for chest pain and leg swelling. Gastrointestinal: Negative for abdominal distention, abdominal pain, constipatio n, diarrhea, nausea and vomiting. Genitourinary: Negative for difficulty urinating, dysuria, frequency and urgency . Neurological: Negative for dizziness and headaches. Psychiatric/Behavioral: Negative for agitation, behavioral problems and confusio n. Objective Temp: [36.4 C (97.6 F)-36.9 C (98.4 F)] 36.9 C (98.4 F) Pulse: [78-94] 90 Resp: [16-18] 18 BP: (125-144)/(54-78) 125/54 SpO2: [93 %-96 %] 94 % O2 Therapy: Room air Intake/Output Summary (Last 24 hours) at 03/08/2020 1300 Last data filed at 03/08/2020 0909 Gross per 24 hour Intake 1320 ml Output 1750 ml Net -430 ml I/O last 3 completed shifts: In: 1080 [P.O.:1080] Out: 1950 [Urine:1950; Stool:1] I/O this shift: In: 240 [P.O.:240] Out: - Last bowel movement: 03/07/2020 Physical Exam Constitutional: He is oriented to person, place, and time. Non-toxic appearance . He does not appear ill. No distress. HENT: Head: Normocephalic and atraumatic. Right Ear: External ear normal. Left Ear: External ear normal. Cardiovascular: Normal rate, regular rhythm, normal heart sounds and normal puls es. No murmur heard. Pulmonary/Chest: Effort normal and breath sounds normal. No respiratory distress . He has no wheezes. Abdominal: Soft. Normal appearance. He exhibits no distension. There is no abdom inal tenderness. Neurological: He is alert and oriented to person, place, and time. Skin: Skin is warm and dry. He is not diaphoretic. Psychiatric: Mood normal. Total Days of Anti-infective Therapy: 2 Anti-infectives (From admission, onward) Start Dose/Rate Route Frequency Ordered Stop 03/07/20 0900 rifAXIMin (XIFAXAN) tablet 550 mg 550 mg Oral 2 Times Daily 03/06/20 2159 04/06/20 0859 Laboratory Data (Most Recent in Past 3 Days) Lab 03/06/20225603/07/2013303/08/20 0403 WBC 6.9 6.8 7.0 HGB 11.6* 11.5* 11.4* HCT 34.0* 33.7* 33.5* MCV 100.4* 99.8* 100.7* PLT 79* 82* 90* Lab 03/07/2013303/08/20 0403 03/08/20 0704 NA 133* 133* 130* K 4.5 4.0 4.0 CL 103 107 104 BICARBONATE 22 19* 19* GLUCOSE 336* 274* 270* BUN 14 14 13 CREATININE 0.78 0.71 0.73 Lab 03/08/20 0704 CALCIUM 7.9* PHOS 2.3* Lab 03/06/202256 NEUTOPHILPCT 65 LYMPHOPCT 16 MONOPCT 14 EOSPCT 4 Lab 03/07/20 0134 03/08/20 0403 03/08/20 0704 PROT 5.3* 5.2* 5.3* ALBUMIN 1.9* 2.0* 1.9* AST 852* 501* 469* ALT 505* 441* 432* TBILI 1.8* 2.2* 2.2* ALKPHOS 85 80 76 Lab 03/08/20 0704 INR 2.89 All laboratory, imaging and other diagnostics have been personally reviewed by aviva dao Us Abdomen Limited Result Date: 03/08/2020 PROCEDURE INFORMATION: Exam: US Abdomen, Limited; Right Upper Quadrant Exam date and time: 03/08/2020 5:35 AM Age: 64 years old Clinical indication: Screening exa m; Other: Evaluate ruq TECHNIQUE: Imaging protocol: US abdomen. Real time ultras ound with image documentation. Limited exam focused on the right upper quadrant. COMPARISON: US ABDOMEN LIMITED [id number] PORTABLE 03/06/2020 11:29 PM FINDINGS: Liver : The liver is increased in echotexture, suggesting fatty infiltration. There is no demonstrated mass or intrahepatic biliary ductal dilatation, evaluation for which is somewhat limited due to the increased echotexture. Gallbladder: The pat ient is status post cholecystectomy. No collection is demonstrated in the gallbl adder fossa. Common bile duct: The common bile duct was difficult to visualize d ue to patient motion, but may be seen as a 4 mm caliber structure. Pancreas: The pancreas is largely obscured by overlying bowel gas. Right kidney: The right ki dney measures 10.1 x 5.9 x 5.6 cm. Its cortex measures 1.7 cm in thickness. Norm al appearing echotexture. There is no hydronephrosis or demonstrated renal stone , cyst or mass. Inferior vena cava: The IVC is present. IMPRESSION: 1. Fatty li elvi. 2. Prior cholecystectomy. 3. Pancreas largely obscured by bowel gas. 4. Com mon bile duct difficult to visualize due to motion, may be normal in caliber. TH IS DOCUMENT HAS BEEN ELECTRONICALLY SIGNED BY KERRI VALERA MD Us Abdomen Limited Result Date: 03/06/2020 PROCEDURE INFORMATION: Exam: US Abdomen; Limited Exam date and time: 03/06/2020 11 :20 PM Age: 64 years old Clinical indication: Other: Hepatic encephalopathy; Add itional info: Rule out ascites TECHNIQUE: Imaging protocol: US abdomen. Real marbella e ultrasound with image documentation. Limited exam focused on the region of cli nical interest. COMPARISON: No relevant prior studies available. FINDINGS: Intra peritoneal space: No evidence of ascites in the submitted images. IMPRESSION: No evidence of ascites in the submitted images. THIS DOCUMENT HAS BEEN ELECTRONICA LLY SIGNED BY MELI CLINTON MD Assessment/Plan Mr. Francois Padilla is a 64 y.o. male with hepatic cirrhosis secondary to alcoholi c liver disease and hepatitis C (treated 3 years ago), type 2 DM, atrial fibrill ation on warfarin, TIA/CVA in the past, CAD with [place] in 2018, hypertension, hyper lipidemia who presented as a transfer from [facility] with altered menta l status. Found to have hepatic encephalopathy secondary to decompensated cirrho sis. GI has been consulted and cirrhosis work-up being completed. Patient did re fuse doppler ultrasound of the liver and spironolactone today. # Hepatic encephalopathy # Decompensated liver cirrhosis - Patient presented from outside hospital with altered mental status, he has bee n missing doses of his lactulose - Etiology of the liver cirrhosis thought to be alcoholic liver disease and hepa titis C - MELD of 29 and Child's Strauss of 11. MDF 149 but falsely elevated in the setting of warfarin use, will hold off on steroids. - Have started the patient on lactulose; please titrate to 2-3 bowel movements p er day - Have started on rifaximin and thiamine - Abdominal ultrasound did not show evidence of ascites - We also ordered a doppler ultrasound of the abdomen to evaluate for venous thr ombosis but the patient refused stating that it makes his stomach uncomfortable - GI has been consulted and recommend further cirrhosis work-up which has been o rdered. - He was started on furosemide 40 mg daily and spironolactone 100 mg daily. Charito ent is refusing spironolactone because he does not want to urinate anymore. - Will continue with low salt diet - Will check LFTs and INR each morning and avoid hepatotoxic agents - Follow the HCV RNA level to make sure he has cleared his infection - He will need an initial EGD for variceal screening and RUQ US with AFP every 6 months for hepatocellular cancer screening. The definitive treatment for Mr. Elizabeth bhatti is a liver transplant. # COVID-19 positive - Currently breathing well on room air - Will continue to monitor at this point in time - If the patient becomes symptomatic or requires oxygen supplementation to main ain oxygen saturation above 92%, will treat him medically # Rhabdomyolysis, present on admission - His [place] was 83448 at outside hospital [place] [address] here - Not complaining of any muscle pain - Renal function is normal - Will check another CK in the morning # Type 2 Diabetes Mellitus - He is on 30 units of detemir at home - He was started on 10 units of lantus here - I will increase it to 80% of his home dose tonight, which is about 24 units of lantus - Will continue with sliding scale - Consistent carbohydrate diet # Atrial fibrillation # History of TIA # History of CVA # Supratherapeutic INR - INR of 2.89 this morning - INR was 4.72 on presentation - Have held due to supratherapeutic INR - Will have to consider restarting his coumadin soon - Unfortunately, he is also high risk given he is an alcoholic with frequent fal ls - Metoprolol will be continued # History of falls - He states that he has gait instability and weakness - CT head at OSH was negative - PT and OT recommending inpatient rehab for him # Hypertension - Continue with metoprolol and lisinopril # Thrombocytopenia - Secondary to cirrhosis DVT Prophylaxis: low molecular weight heparin GI Prophylaxis: Not Indicated Functional Status: moderately impaired Code Status: Full Code Disposition: Plan discharge to: Rehab Estimated Discharge Date: The patient was discussed with Marcellus Saunders MD who agrees with the assessme nt and plan as noted above. Signature: Kerri Levine MD Date/Time: March 08, 2020 1:00 PM Attending addendum: I saw and examined the patient, discussed case with the resident, personally rev iewed labs and imaging and agree with the history, exam, assessment and plan out lined above with the following additional assessment/plan. Improving, no sign of worsening COVID related disease. Liver function is improv e. No hypoxemia or fevers. Didn't start remdesivir or steroids as COVID doesn' t seem to be symptomatic. Marcellus Saunders MD Medicine Attending [facility] Pager [phone] * Madeline Arreguin, PT - 03/08/2020 11:49 AM EST Physical Therapy Acute Care Encounter Note Medical Diagnosis: COVID-19 infection Hepatic encephalopathy Decompensated cirrhosis Nausea and constipation Rhabdomyolysis Type II Diabetes Mellitus Essential hypertension Falls history History of TIA and CVA Thrombocytopenia Rehabilitation Precautions/Restrictions: Activity: OOB w/ assistance High fall risk Low fall risk Precautions: Enhanced airborne with eyewewar, contact Precautions: Hazardous drugs Precautions: Thrombocytopenia Goal Review Visit Number: 2 SUBJECTIVE Patient Report: Patient agreeable to PT this AM. Pain: Patient has no complaints of pain currently. Pain Medication Today: yes. OBJECTIVE General Observation: Patient received semi-reclined in bed in NAD on RA. +PIV BUE. No bed alarm noted at start of session. Skin Integrity Screen: All visible skin appears grossly intact. Vital Signs: Asymptomatic throughout session. Functional Status: Transfers: Patient transferred sit to/from stand requiring stand by assistance. Patient used the following equipment: Arms of chair. Patient used the following equipment: rolling walker. From edge of bed, to/from recliner chair. Bed Mobility: Patient moves from supine to/from sit with modified independence. HOB elevated. Patient transitioned from supine to/from edge of bed on both sides of bed this session. Locomotion/Gait/Ambulation: Patient was contact guard with gait/ambulation of 1 person for approximately 4 steps toward the left from edge of bed to recliner chair, approximately 30 feet within room . Patient requires the following assistive device(s): Rolling walker. Forward posture. Appropriate gait speed. Minimal unsteadiness noted. Stairs: Not assessed. Outcome Measures: [facility] AM-PAC "6 Clicks" Basic Mobility Inpatient Short Form: Turning over in bed: No difficulty (4) Sitting down on and standing up from a chair with arms: A little difficulty (3) Moving from lying on back to sitting on the side of the bed: No difficulty (4) Moving to and from a bed to a chair (including a wheelchair): A little help (3) Walking in hospital room: A little help (3) Climbing 3-5 steps with a railing: A little help (3) Raw Score 20 /24. Interventions: Therapeutic Activities: To improve tolerance to, and independence with, functional mobility, patient facilitated in bed mobility, functional transfers, and ambulation as above. Therapist with total assist to don socks in sitting prior to ambulation for safety, patient facilitated via minimal assist for lower body dressing in sitting and standing, to thread pants due to home office claim specialist on socks. Therapist with moderate verbal, tactile, visual cues throughout session for UE/LE placement or leverage/support, activity pacing, breathing techniques, rolling walker management, step placement, step sequencing, and abdominal muscle engagement for truncal stability ins standing for support. Patine encouraged in shoulder depression with thoracic extension while ambulating for improved postural awareness and obstacle navigation. increased time allotted in between transitions to minimize fatigue and LE pain. Graded prompts provided to promote retention of skill. Education: Mode of education provided: Demonstration. Explanation. Audience: Patient. Education Provided: Safe mobility. Treatment plan. Body mechanics/postural changes. Rehabilitation techniques and procedures. Home ergonomics. Pain management. Activity pacing. Breathing techniques. Safe discharge planning. Call yip utilization. Safe discharge planning . Response: Applied knowledge. Indicates understanding. Needs practice/reinforcement. Requires cues (auditory/physical). Verbalized understanding. ASSESSMENT Response to Visit: The session was tolerated well. Patient pleasant, willing to mobilize, moving well with limited support/assistance as compared to prior level of assistance. Session terminated with patient seated in recliner chair, all needs met. Chair alarm was on at end of session. Patient seated on waffle cushion at end of session. Call yip was in patient's reach at end of session. Pain: Patient has no complaints of pain currently. PLAN Treatment Frequency, Duration and Interventions: Restorative Physical Therapy is recommended for 5x/week for 4 weeks. Treatment is to include: Gait Training. Manual Therapy. Neuromuscular Re-education. Therapeutic Activity. Therapeutic Exercise. Self Care/Home Management. Recommended Physical Therapy Follow Up: Upon acute care discharge, the following is currently recommended: Pending continued mobility assessment, including increased ambulation and stair negotiation, anticipate home with 24/7 support and assistance and Home PT. Equipment Provided: None issued this visit. Visit Number: Today's visit is number 2 Program: General Medicine (Therapist may be reached on [employer]) SESSION: Duration: 38 CHARGES: 71812 - CHARGE - PT THERAPEUTIC ACTIVITIES - 15 MIN 3 Units - GENERAL MEDICINE VISIT 1 Units Total treatment minutes: 38.00 Minutes Electronically Signed by: Madeline Arreguin PT, DPT, 03/08/2020 12:10:59 PM * Kerri Levine MD - 03/08/2020 8:04 AM ESTSummary: istop * Uzma Griffith RN - 03/08/2020 6:06 AM EST Pt removed own telemetry and Masimo monitors. When asked why, stated he just did not want to wear them. Pt refused to allow staff to reapply monitors. BRANDON Carias made aware. * Delia Adams RN - 03/07/2020 11:31 AM EST Patient received from . VSS. Patient resting comfortably and call yip within reach. * Jessica Gauthier RN - 03/07/2020 11:15 AM EST Pt transferred to due to positive Covid test at approximately 1100. Report gi gumaro to RN. All belongings sent with patient (including credit cards, lozano and a comb which were delivered later on by Mary Grace French RN and given to pt.) Vital signs stable, no complains of pain or respiratory compromise. * Marcellus Saunders MD - 03/07/2020 10:19 AM EST Internal Medicine Inpatient Progress Note Subjective The patient was seen and examined at bedside. At the time of my examination, th e patient was conscious, cooperative and well oriented to time place and person. They exhibited no form of acute distress and tolerated the encounter well. Shira cardoza expressed that he wants to go home and plan was discussed with him. Review of Systems Constitutional: Positive for appetite change and fatigue. Negative for activity change, chills and fever. HENT: Negative for congestion and trouble swallowing. Eyes: Negative for discharge and itching. Respiratory: Negative for apnea, shortness of breath and wheezing. Cardiovascular: Negative for chest pain, palpitations and leg swelling. Gastrointestinal: Positive for constipation. Negative for diarrhea, nausea and v omiting. Genitourinary: Negative for difficulty urinating and dysuria. Musculoskeletal: Negative for arthralgias and back pain. Neurological: Negative for dizziness, facial asymmetry and headaches. Psychiatric/Behavioral: Negative for agitation, behavioral problems and confusio n. Objective Temp: [36.6 C (97.8 F)-36.9 C (98.4 F)] 36.6 C (97.9 F) Pulse: [78-86] 86 Resp: [16] 16 BP: (129-156)/(61-78) 156/70 SpO2: [93 %-95 %] 95 % O2 Therapy: Room air Intake/Output Summary (Last 24 hours) at 03/07/2020 1019 Last data filed at 03/07/2020 0802 Gross per 24 hour Intake Output 951 ml Net -951 ml I/O last 3 completed shifts: In: - Out: 950 [Urine:950] I/O this shift: In: - Out: 1 [Stool:1] Last bowel movement: This AM Physical Exam Constitutional: He is oriented to person, place, and time. HENT: Nose: No congestion. Eyes: No scleral icterus. Cardiovascular: Normal rate and regular rhythm. Murmur (Systolic, more prominent at the mitral area ) heard. Pulmonary/Chest: He has no wheezes. He has no rales. Abdominal: He exhibits no distension. There is no abdominal tenderness. Musculoskeletal: Right lower leg: No edema. Left lower leg: No edema. Neurological: He is alert and oriented to person, place, and time. He displays n o weakness. No sensory deficit. Skin: Capillary refill takes less than 2 seconds. No lesion and no rash noted. Total Days of Anti-infective Therapy: 1 Anti-infectives (From admission, onward) Start Dose/Rate Route Frequency Ordered Stop 03/07/20 0900 rifAXIMin (XIFAXAN) tablet 550 mg 550 mg Oral 2 Times Daily 03/06/209 04/06/20 0859 Laboratory Data (Most Recent in Past 3 Days) Lab 03/06/20225603/07/20 0134 WBC 6.9 6.8 HGB 11.6* 11.5* HCT 34.0* 33.7* MCV 100.4* 99.8* PLT 79* 82* Lab 03/06/20225603/21 013 NA 133* 133* K 4.9 4.5 CL 103 103 BICARBONATE 20* 22 GLUCOSE 317* 336* BUN 13 14 CREATININE 0.77 0.78 Lab 03/07/20133 CALCIUM 7.8* Lab 03/06/202256 NEUTOPHILPCT 65 LYMPHOPCT 16 MONOPCT 14 EOSPCT 4 Lab 03/06/20225603/07/20133 PROT 5.4* 5.3* ALBUMIN 1.9* 1.9* AST 897* 852* ALT 506* 505* TBILI 1.6* 1.8* ALKPHOS 88 85 Lab 03/06/202256 INR 4.72 Us Abdomen Limited Result Date: 03/06/2020 PROCEDURE INFORMATION: Exam: US Abdomen; Limited Exam date and time: 03/06/2020 11 :20 PM Age: 64 years old Clinical indication: Other: Hepatic encephalopathy; Add itional info: Rule out ascites TECHNIQUE: Imaging protocol: US abdomen. Real marbella e ultrasound with image documentation. Limited exam focused on the region of cli nical interest. COMPARISON: No relevant prior studies available. FINDINGS: Intra peritoneal space: No evidence of ascites in the submitted images. IMPRESSION: No evidence of ascites in the submitted images. THIS DOCUMENT HAS BEEN ELECTRONICA LLY SIGNED BY MELI CLINTON MD Assessment/Plan Mr. Francois Padilla is a 64 y.o. male who is here for Principal Problem: Daily Updates: -Pending COVID test is positive and in light of this finding, exacerbation of he patic cirrhosis and encephalopathy is probably secondary to COVID infection -GI consulted, appreciate recs #COVID-19 Infection: --Patient had a positive covid test on admission --Currently asymptomatic , saturating well on room air #Hepatic encephalopathy #Decompensated Cirrhosis --Cirrohsis is secondary to Hep C and alcololic liver --Patient presented with AMS, had missed doses of lactulose and conspitaion --MELD score of 29, Lisbet Strauss 11 --Lactulose 40 mLs q6 ,Rifaxmin 550 mg twice daily and Thiamine --Abdmoinial US is negative for ascites --Receiecved Ceftriaxone and IV lasix, held spironolactone In light of the hype rkalemia ( no need for ABx as the patient has no ascites nor abdominal pain) --GI consulted, appreciate recs #Nausea and constipation, resolving --Probably secondary to missed lactulose doses --On IV Zofran for nausea --Had a BM this AM #Rhabdomyolysis --Presented with 2 weeks of biltaeral LE pain, weakness and soreness --CK is elevated at OSH 23K, repeat on admission is 16K, trending down --COVID postive, might be the cause --ON IV fluids #Type 2 DM --Home regimen: Detemir 30 units --Hyperglycemic on admission, currently on medium dose SS and 10 units of Lantus nightly #Essential hypertension With metoprolol or lisinopril at home We will continue with Toprol 12.5 mg and lisinopril 5 mg #History of falls Patient reported gait instability and lower extremity weakness CT scan of head at outside hospital was negative for any intracranial path ology PT/OT on board, they recommended inpatient rehab #History of TIA and CVA Holding warfarin as PT/INR elevated #Thrombocytopenia Secondary to cirrhosis Currently stable, continue to monitor DVT Prophylaxis: low molecular weight heparin GI Prophylaxis: Not Indicated Functional Status: moderately impaired Code Status: Full Code Disposition: Plan discharge to: TBD Estimated Discharge Date: TBD The patient was discussed with Marcellus Saunders MD who agrees with the assessme nt and plan as noted above. Signature: Eleno Scales MBBS Date/Time: March 07, 2020 10:19 AM Attending addendum: I saw and examined the patient, discussed case with the resident, personally rev iewed labs and imaging and agree with the history, exam, assessment and plan out lined above with the following additional assessment/plan. COVID + likely contributing to rhabdomylysis and worsening liver enzymes. No hy poxemia noted. Will consider steroids or remdesivir if clinically worsens. Con tinue with lactulose and gentle hydration. Marcellus Saunders MD Medicine Attending [facility] Pager [phone] * Benita Perez RN - 03/06/2020 10:00 PM EST Pt arrived to at approximately 2000 as a transfer from outside hospital. Pt r eporting 8/10 BLE pain. Pt oriented to room and call yip systmem. Bed in low po sition, call yip within reach, bed alarm on, tele initiated. Admission assessme nt limited as pt a poor historian. Benita Perez documented in this encounter H&P Notes * Carlos Paez MBBS - 03/06/2020 10:07 PM EST History & Physical Patient Francois Padilla PCP Jovana Mckeon DO Admission Date 03/06/2020 Chief Complaint/Reason for Admission: Francois is coming in today as a transfer from [facility]/2 decompensated cirrhosis from alcoholic li elvi dx and Hepatitis C (treated 3 years ago) Subjective History of Presenting Illness Mr. Francois Padilla is a 64 y.o. male with a past medical history as mentioned bel ow most significant for Type 2 DM on insulin, hepatic cirrhosis 2/2 alcoholic li elvi dx and Hepatitis C (treated 3 years ago), TIA, CAD s/pMI in 2018, Essential HTN and HLD, coming in today as a transfer from OSH ([facility]) with c/o of alte red mental status and persistent bilateral lower extremity pain. He presented to ED of outside hospital with 2 week hx of bilateral lower extremi ty pain radiating form the groins to the feet, soreness, weakness and swelling w ith associated maya instability and frequent falls without head injuries, follow ed by a 3-5 day hx of worsening confusion, memory lapses and somnolence. He denies any seizures, vomiting, passage of dark colored stools, diarrhea or pe rsistent constipation. Endorses nausea, mild RUQ abdominal pain, and exertional dyspnea but denies ches t pain, abdominal distension,, fever, chills or rigor. He occassionally soils hi mself with urine or stool as he cannot get to the bathroom fast enough due to th e lower extremity pain. At the OSH ED, vital signs were stable and labs were most significant for hyperg lycemia (glucose 602), lactate 4.1 and negative BHB, upward trending INR from 3. 46-4.10, AST 600s to 994, ALT 400s to 542, ammonia elevated at 57 and CK at 23,8 30. Admission PT was 35.6 seconds with T. Abiel 1.6 Tylenol negative, UA negative for infection and Covid PCR test was negative as w ell. CT head at OSH negative for hemorrhage, infarction mass or mass-effect but did s how stable age-related atrophy and microvascular ischemic changes. CT abdomen/pelvis showed cirrhosis and nodules in the liver negative for ascites and positive for increased stool burden He was started on IV fluids, insulin, thiamine, lactulose, rifaximin and spirono lactone but was transferred here for expert care of his decompensated liver cirr sandy At [facility] vital signs remained stable T 36.9 C, HR 78/min, RR 16/min, BP 147/69 mmHg and SPO2 94% on room air Patient's admission meld score elevated at 29, child Strauss score of 11 and Maddre y's discriminant function elevated at 103.7 points suggesting a poor prognosis t hat would benefit from steroid use Patient Active Problem List Diagnosis Date Noted Hepatic encephalopathy 03/06/2020 Type 2 diabetes mellitus, with long-term current use of insulin 03/06/2020 Alcoholic cirrhosis of liver without ascites 03/06/2020 Chronic hepatitis C without hepatic coma 03/06/2020 Treated 3 years ago by PCP in [place] CAD (coronary artery disease) 03/06/2020 S/p [place] in 2018 Essential hypertension 03/06/2020 Falls frequently 03/06/2020 Past Surgical History CHOLECYSTECTOMY APPENDECTOMY Social History He is Significant Other. He lives with his family. He quit smoking 20 years ago Hx of significant alcohol use but says last drink was 4-6 months ago Denies recreational drug use Travel: No recent history of long distance travel. Family History Non contributory Home Medications Not on File Allergies: Eggs or egg-derived products, Gabapentin, and Spironolactone Review of Systems Constitutional: Positive for fatigue. Negative for chills and fever. HENT: Negative for trouble swallowing. Eyes: Negative for photophobia and visual disturbance. Respiratory: Negative for cough, shortness of breath and wheezing. Cardiovascular: Positive for leg swelling. Negative for chest pain and palpitati ons. Gastrointestinal: Positive for abdominal pain (Mild RUQ), constipation (intermit tent but last BM was today) and nausea. Negative for anal bleeding, diarrhea and vomiting. Genitourinary: Negative for difficulty urinating, frequency and hematuria. Musculoskeletal: Positive for back pain and myalgias. Negative for arthralgias a nd neck stiffness. Neurological: Negative for numbness and headaches. Psychiatric/Behavioral: Positive for confusion and sleep disturbance (somnolence ). Negative for agitation and behavioral problems. Objective Temp: [36.9 C (98.4 F)] 36.9 C (98.4 F) Pulse: [78] 78 Resp: [16] 16 BP: (147)/(69) 147/69 SpO2: [94 %] 94 % O2 Therapy: Room air Physical Exam Constitutional: Non-toxic appearance. He appears ill. No distress. HENT: Head: Normocephalic and atraumatic. Nose: No congestion. Mouth/Throat: Mucous membranes are moist. No oropharyngeal exudate or posterior oropharyngeal erythema. Eyes: Pupils are equal, round, and reactive to light. No scleral icterus. Neck: Neck supple. No neck rigidity. Cardiovascular: Normal rate, regular rhythm and normal pulses. Exam reveals no g allop. Murmur (Possible PSM loudest in Left parasternal) heard. Pulmonary/Chest: Effort normal and breath sounds normal. No respiratory distress . He has no wheezes. Abdominal: Soft. Bowel sounds are normal. He exhibits no distension and no mass. There is abdominal tenderness (RUQ). There is no guarding. Musculoskeletal: General: No swelling or tenderness. Right lower leg: Edema present. Left lower leg: Edema present. Neurological: He is alert. He displays no weakness. No cranial nerve deficit. Co ordination normal. Oriented to person and place but not to time Skin: Skin is warm. No bruising noted. No jaundice or pallor. Psychiatric: Mood normal. Vitals reviewed. Laboratory Data (Most Recent over Past 3 Years) Invalid input(s): BILDIR All laboratory, imaging and other diagnostics have been personally reviewed by aviva leon. In addition I reviewed the patient's allergy list , medication list and old rec ords . Assessment & Plan Mr. Francois Padilla is a 64 y.o. male with a past medical history as mentioned bel ow most significant for Type 2 DM on insulin, hepatic cirrhosis 2/2 alcoholic li elvi dx and Hepatitis C (treated 3 years ago), TIA, CAD s/pMI in 2018, Essential HTN and HLD, coming in today as a transfer from OSH ([facility]) with c/o of alte red mental status and persistent bilateral lower extremity pain. Being managed f or hepatic encephalopathy 2/2 decompensated cirrhosis from alcoholic liver dx an d Hepatitis C Active Problems: Hepatic encephalopathy -Patient presented to outside hospital with a 3 to 5-day history of worsening co nfusion, somnolence and memory lapses -Endorsed missed doses of lactulose and intermittent constipation -Markedly elevated transaminases and ammonia at 57 at OSH -MELD score of 29, Lisbet Strauss of 11 and Maddrey's discriminant function elevate d at 103.7 points -CT head at OSH negative for any acute pathology Plan -Lactulose 40 mls every 6h titrated to 3-4 bowel movements per day -Rifaximin 550 mg twice daily -Thiamine 100 mg daily - Hold Lyrica 150mg BID for now #Decompensated cirrhosis secondary to alcoholic liver disease - Being managed for hepatic encephalopathy 2/2 decompensated cirrhosis from alco holic liver dx and Hepatitis C - Endorses constipation and poor compliance with lactulose due to memory lapses and confusion - AST elevated at 994 and ALT elevated at 542 at OSH - PT/INR at OSH trended up from 35.6/3.46 to 40.7 /4.10 - MELD score of 29, Lisbet Strauss of 11 and Maddrey's discriminant function elevat ed at 103.7 points - Physical exam significant for RUQ tenderness and bilateral LE edema - CT Abdomen at OSH shows nodular cirrhotic liver, negative for ascites but show s increased stool burden Plan - Abdominal USS ordered - IV Ceftriaxone 2g stat ordered - IV Lasix 20mg stat - Will defer to day team on commencement of Spironolactone in light of previous ADR of Gynecomastia - Will consult GI in the am - Day team and GI to decide on benefit of Prednisolone #Constipation #Nausea -Patient reports intermittent constipation and is on lactulose at home -He endorses missed doses of lactulose -CT abdomen at OSH revealed significant stool burden Plan -Lactulose 40 mls every 6 hours and titrate to 3-4 bowel movements daily -Colace 100 mg daily -Encourage liberal fluid intake - IV Zofran ordered for nausea #Rhabdomyolysis -Patient presents with a 2-week history of bilateral lower extremity pain, rox ess, weakness and swelling -Denies any inciting traumatic injury, ingestion or fever -Patient is on atorvastatin 40 mg daily - AST elevated at 994 and ALT elevated at 542 at OSH Plan - Urinalysis ordered -IV fluid normal saline 100 cc/h -Hold p.o. atorvastatin - Encourage liberal fluid intake - Monitor transaminases and serum CK #Type 2 diabetes mellitus -Patient has type 2 diabetes on insulin detemir 30 units at home -Was significantly hyperglycemic at admission at OSH -POCT at admission to the [facility] Plan -Insulin Lantus 10 units QHS -Start patient on low-dose insulin sliding scale and titrate upwards as indicate d -Fingersticks AC and HS #Essential hypertension -Patient is on metoprolol and lisinopril at home -Admission BP slightly elevated with SBP in the 140s Plan -C/W metoprolol 12.5mg - C/w Lisinopril 5mg daily #Hyperlipidemia - On Atorvastatin 40mg daily Plan - Hold Statin on account of Rhabdomyolysis #History of falls - Patient and report significant maya instability with recurrent falls - No head injuries reported and CT Head at OSH negative for acute intracranial p athology Plan - PT/ OT consults ordered - Fall precautions ordered - Assistance out of bed ordered #Hx of TIA and CVA - Was on PO Warfarin 2mg for anticoagulation 6 days/wk Plan - Hold Warfarin today and repeat PT/INR - continue to monitor #Thrombocytopenia -Platelets from OSH reduced at 89 Plan -Continue to monitor with serial CBCs -We will hold DVT prophylaxis if it is less than 50 DVT Prophylaxis: low molecular weight heparin GI Prophylaxis: Not Indicated Disposition: Will admit to inpatient status as he meets the clinical criteria an d is expected to stay for >2 midnights based on the current severity of the disease Code Status: Full Code The patient was discussed with Wagner Marley MD who agrees with the assessment a nd plan as noted above. Signature: Carlos Paez MBBS Date/Time: March 06, 2020 10:07 PM Associated attestation - Wagner Marley Jr., MD - 03/07/2020 1:46 AM EST Francois Padilla is a 64 y.o. male with known hepatic cirrhosis 2/2 EtOH abuse and previously treat HCV. He comes in as a transfer from an OSH with decompensated cirrhosis with associated encephalopathy, abdominal pain, and rhabdomyolysis. T he patient has missed doses of lactulose and goes 2-3 days without a bowel movem ent likely contributing to his encephalopathy. Holding hepatotoxic drugs and also his home statin which may be contributing to his rhabdomyolysis. He is slightly volume overloaded with 2+ pitting edema bila terally and mild rales at the bases. 20 mg IV lasix given. NO overt fluid wave or ascites however with abdominal tenderness and encephalopathy present we will give a dose of Ceftriaxone 2 grams to cover for SBP (although low suspicion). US ordered, no evidence of ascites at this time. We will encourage aggressive l actulose for 2-3 BM daily and continue with Rifaximin as well. Plan to call GI i n the morning for assistance as he has not followed up with his gastroenterologi st in [facility] in > 1 year. Holding PM dose of warfarin as INR is 4.72. MELD is 28, MDF approximately 148 which is likely falsely elevated in the setting of Warfarin use thus will hold off on Prednisolone at this time. Principal Problem: Decompensated hepatic cirrhosis Active Problems: Hepatic encephalopathy Type 2 diabetes mellitus, with long-term current use of insulin Alcoholic cirrhosis of liver without ascites Chronic hepatitis C without hepatic coma CAD (coronary artery disease) Essential hypertension Falls frequently Coagulopathy Non-traumatic rhabdomyolysis Thrombocytopenia Macrocytic anemia Transaminitis Edema due to hypoalbuminemia Hyperglycemia due to diabetes mellitus The patient was seen and examined by me. I have discussed the case with the eleuterio rowley. I have interviewed the patient and performed a physical examination. I hav e independently reviewed labs, EKG, imaging. Overall amount of data reviewed, le larry of risk, complexity and medical decision making is: high. Time spent providi ng, discussing, and coordinating care today: >70 minutes Please refer to the resident's note for details. I concur with that note. Wagner Marley MD documented in this encounter Consult Notes * Wagner Florian MD - 03/07/2020 12:56 PM EST Associated Order(s): IP CONSULT TO GI GASTROENTEROLOGY CONSULT NOTE Reason for consult: Cirrhosis management Physician requesting consult: Marcellus Saunders MD Physician performing the consult: Dr. Florian History History of Presenting Illness: Mr. Francois Padilla is a 64 y.o. male with a medical history significant for T2DM, alcohol induced liver cirrhosis and Hepatitis C (treated 3 years ago), TIA and Afib on coumadin, CAD s/p [place] in 2018, Essential HTN and HLD, presented to the ospital as a transfer from [facility] with altered mental status and per sistent bilateral lower extremity pain. He initially presented to the OSH with 2 weeks of B/L LE pain and weakness. Associated maya instability and frequent fa lls without head injuries, followed by a 3-5 day hx of worsening confusion, josé luis ry lapses and somnolence. At the OSH ED, vital signs were stable and labs were most significant for hyperg lycemia (glucose 602), lactate 4.1 and negative BHB, upward trending INR from 3. 46-4.10, AST 600s to 994, ALT 400s to 542, ammonia elevated at 57 and CK at 23,8 30. Admission PT was 35.6 seconds with T. Abiel 1.6 Tylenol negative, UA negative for infection and Covid PCR test was negative as w ell. CT head negative for hemorrhage, infarction mass or mass-effect but did ayden w stable age-related atrophy and microvascular ischemic changes. CT abdomen/pelvis showed cirrhosis and nodules in the liver negative for ascites and positive for increased stool burden.He was started on IV fluids, insulin, t hiamine, lactulose, rifaximin and transferred here for higher level of care. [facility] he has remained hemodynamically stable. Pt appears confu sed , he was alert and oriented to self and place but seemed overall very confus ed.Ge is unsure of what medications he takes at home. Pt states that he quit dri nking alcohol 4 months ago. Denies excess tylenol use. He has not seen a GI doct or for a long time. He has been started on lactulose this morning by the medicine team and as per th e bedside nurse he had 1 BM this morning. Pt was found to be covid positive on t his admission. Asymptomatic respiratory stand point. Unfortunately no further hi story available. A paracentesis was attempted but the fluid pocket was very small. Previous Endoscopies: No records available Past Medical & Surgical History: History reviewed. No pertinent past medical history. History reviewed. No pertinent surgical history. Allergies Allergen Reactions Eggs Or Egg-Derived Products Itching Gabapentin Nausea And Vomiting Spironolactone Other (See Comments) Gynaecomastia Home Medications Not on File Medications at this time capsaicin Topical TID docusate sodium 100 mg Oral BID enoxaparin 40 mg Subcutaneous Daily insulin glargine 10 Units Subcutaneous Nightly insulin lispro 1-16 Units Subcutaneous 3 x Daily with Meals lactulose 40 mL Oral TID lisinopril 5 mg Oral Daily metoprolol 12.5 mg Oral Daily rifAXIMin 550 mg Oral BID thiamine 100 mg Oral Daily acetaminophen (TYLENOL) tablet, dextrose, glucagon (human recombinant), glucose, ondansetron, oxyCODONE sodium chloride 100 mL/hr at 03/07/20 1131 Social History: He is Significant Other. He reports previous alcohol use. Family History: Family history is unknown by patient. Unable to obtain Review of systems: Complete ROS performed and found to be negative except those mentioned in the HP I. Physical examination Blood pressure 136/70, pulse 78, temperature 36.6 C (97.9 F), temperatur e source Oral, resp. rate 16, height 1.778 m (5' 10"), weight 70.1 kg (154 lb 9. 6 oz), SpO2 94 %. Physical Exam - Limited due to covid 19 positive status. Data review All relevant laboratory data, outside records and imaging that were available we re reviewed by me. Pertinent ones are listed here. Laboratory Data: Lab 03/06/20225603/07/20133 HGB 11.6* 11.5* HCT 34.0* 33.7* MCV 100.4* 99.8* PLT 79* 82* WBC 6.9 6.8 Lab 03/06/20225603/07/20133 NA 133* 133* K 4.9 4.5 CL 103 103 BICARBONATE 20* 22 BUN 13 14 CREATININE 0.77 0.78 Lab 03/06/20225603/07/20133 PROT 5.4* 5.3* ALBUMIN 1.9* 1.9* ALT 506* 505* AST 897* 852* ALKPHOS 88 85 TBILI 1.6* 1.8* BILIDIR 0.5* -- Lab 03/06/20 2257 INR 4.72 Imaging and other investigations: No results found. Assessment Mr. Francois Padilla is a 64 y.o. male with a medical history significant for T2DM, alcohol induced liver cirrhosis and Hepatitis C (treated 3 years ago), TIA and Afib on coumadin, CAD s/p [place] in 2018, Essential HTN and HLD, presented to the ospital with symptoms of hepatic encephalopathy, grade 2. He also has asymptomat ic covid 19 infection. Gi has been consulted for cirrhosis management as he has not seen his GI doctor from [place] for > 1 year. Pt has decompensated liver cirrhosis due to ascites, encephalopathy and coagulopathy (although confounded by use of coumadin). He has low albumin, low plts and a high INR along with hepatocellular pattern of transaminitis. AST could be high due to rhabdomyolysis. Although the presumed etiology of the cirrhosis is alcohol, it is important we r ule out other treatable causes like autoimmune hepatitis, jaden's, alpha 1AT de f, hemochromatosis etc. Pt has been treated for hep C. It is natural to expect a positive HCV antibody. We should check a HCV RNA level to make sure he has love red the infection. Pt has an elevated MDF, but we will have to hold off on treat ment with steroids as he has a falsely elevated number due to coumadin use, and steroids are not very helpful in pts who are already cirrhotic. Also given her p attern of LFT elevation, it is not consistent with alcoholic hepatitis as we wou ld usually expect AST/ALT to be < 300. Hence we have to rule out acute viral hepatitis, tylenol use etc to workup the acute hepatitis pattern of LFT abnormality. MELD- Na 28, Child Class C and MDF is 149 --> falsely high due to coagulopathy from coumadin use. Recommendations - Please obtain hepatitis workup which includes: hepatitis B surface antigen, s urface antibody and core antigen, hep A IgM and HCV RNA levels. - Please obtain tylenol and salicylate levels - Obtain AMA (anti mitochondrial AB), ASMA (anti smooth muscle AB), ANCA, IGG cohen bclasses, anti LKM (anti liver kidney microsomal AB), iron panel including tony tin, alpha 1 antitrypsin level, and ceruloplasmin level. - Check RUQ US and RUQ doppler to rule out portal vein thrombus and Budd chiari syndrome. - If paracentesis is done, please make sure to send out for total ascitic total protein, albumin, cell count, culture and cytology. Pt is being treated for a pr esumed SBP. - For hepatic encephalopathy, please continue aggressive treatment with lactulos e 30mL Q6H and titrate to 2-3BM's a day. Continue rifaximin 550mg bid - For ascites, he can be started on lasix 40mg and Aldactone 100mg today. Please check kidney functions tomorrow and U/O; If they continue to remain stable, he can be continued on the diuretics. - Low salt diet. - For now, check daily LFTs and INR. - Avoid hepatotoxic agents - Patient will need to have an initial EGD for variceal screening and RUQ US wit h AFP every 6 months for HCC screening. - Definitive treatment is liver transplant. Pt is unsure if he will be staying back in [place] after discharge. The patient was discussed with Dr. Florian who agrees with the above assessme nt and plan. BRANDON Coombs Gastroenterology & Hepatology Fellow, PGY-4 Pager # [phone] 03/07/2020 12:56 PM I personally evaluated the patient record material including review of testing w ith Dr. Porras and the above documentation with my edits represents our in ta ndem review and our assessment and recommendations. Report is delivered to the provider / team requesting the review. Fortunately there has been no documenta tion of focal findings on exam nor any peritoneal signs. In summary the patient has a presumed diagnosis of the cirrhosis due to alcohol, I agree it is importa nt we rule out other treatable causes. documented in this encounter Miscellaneous Notes * Plan of Care - Patience Gatica RN - 03/09/2020 8:08 PM EST Problem: Hemodynamic Status Goal: Patient will remain hemodynamically stable Description: Patient's vital signs, oxygenation, and labs will be monitored and deviations addressed. Outcome: Progressing Problem: Pain Goal: Pain is controlled to patient's desired goal Outcome: Progressing Problem: Risk for impaired skin integrity Goal: Skin integrity is maintained or improved Outcome: Progressing Problem: Fall Prevention Goal: No fall during Hospitalization Outcome: Progressing Problem: Impaired Physical Mobility Goal: Patient will maintain maximum physical mobility within prescribed activity and weight bearing restrictions Outcome: Progressing Problem: Risk for Infection Goal: The patient will receive immunization screening as indicated Outcome: Progressing Goal: Patient will remain free of infection in operative site Outcome: Progressing Goal: The patient will not develop pneumonia post-operatively Outcome: Progressing Problem: Risk for DVT/PE Goal: Patient will not develop a DVT/PE Outcome: Progressing Problem: Risk for Gastrointestinal Complications Goal: Patient will not develop gastrointestinal complications Description: Nausea/vomiting, constipation, dehydration Outcome: Progressing Problem: Self Care Deficit Goal: Patient will perform Activities of Daily Living at optimal level Outcome: Progressing Problem: Psychosocial Needs Goal: Psychosocial needs will be met during this hospitalization Outcome: Progressing Problem: Discharge Needs Goal: Patient discharge needs are met Description: Collaborate with interdisciplinary team and initiate plans and inte rventions as needed Outcome: Progressing Problem: Risk for Infection Goal: The patient will not develop Catheter Acquired Urinary Tract Infection (CA UTI) Outcome: [employer] Attendant Error * Plan of Care - Virginie Alcazar RN - 03/08/2020 10:30 PM EST Problem: Hemodynamic Status Goal: Patient will remain hemodynamically stable Description: Patient's vital signs, oxygenation, and labs will be monitored and deviations addressed. Outcome: Progressing Problem: Pain Goal: Pain is controlled to patient's desired goal Outcome: Progressing Problem: Risk for impaired skin integrity Goal: Skin integrity is maintained or improved Outcome: Progressing Problem: Fall Prevention Goal: No fall during Hospitalization Outcome: Progressing Problem: Impaired Physical Mobility Goal: Patient will maintain maximum physical mobility within prescribed activity and weight bearing restrictions Outcome: Progressing Problem: Risk for Infection Goal: The patient will receive immunization screening as indicated Outcome: Progressing Goal: Patient will remain free of infection in operative site Outcome: Progressing Goal: The patient will not develop pneumonia post-operatively Outcome: Progressing Goal: The patient will not develop Catheter Acquired Urinary Tract Infection (CA UTI) Outcome: Progressing Problem: Risk for DVT/PE Goal: Patient will not develop a DVT/PE Outcome: Progressing Problem: Risk for Gastrointestinal Complications Goal: Patient will not develop gastrointestinal complications Description: Nausea/vomiting, constipation, dehydration Outcome: Progressing Problem: Self Care Deficit Goal: Patient will perform Activities of Daily Living at optimal level Outcome: Progressing Problem: Psychosocial Needs Goal: Psychosocial needs will be met during this hospitalization Outcome: Progressing Problem: Discharge Needs Goal: Patient discharge needs are met Description: Collaborate with interdisciplinary team and initiate plans and inte rventions as needed Outcome: Progressing * Assessment & Plan Note - Kim Cabrales, PT - 03/07/2020 10:27 AM EST Physical Therapy Acute Care Examination Medical Diagnosis: hepatic encephalopaty, rhabdo, AMS Hepatic encephalopathy History of Present Illness: as per epic: "Mr. Francois Padilla is a 64 y.o. male with a past medical history as mentioned below most significant for Type 2 DM on insulin, hepatic cirrhosis 2/2 alcoholic liver dx and Hepatitis C (treated 3 years ago), TIA, CAD s/pMI in 2018, Essential HTN and HLD, coming in today as a transfer from [facility] ([facility]) with c/o of altered mental status and persistent bilateral lower extremity pain. He presented to ED of outside hospital with 2 week hx of bilateral lower extremity pain radiating form the groins to the feet, soreness, weakness and swelling with associated maya instability and frequent falls without head injuries, followed by a 3-5 day hx of worsening confusion, memory lapses and somnolence. He denies any seizures, vomiting, passage of dark colored stools, diarrhea or persistent constipation. Endorses nausea, mild RUQ abdominal pain, and exertional dyspnea but denies chest pain, abdominal distension,, fever, chills or rigor. He occassionally soils himself with urine or stool as he cannot get to the bathroom fast enough due to the lower extremity pain. ? At the OSH ED, vital signs were stable and labs were most significant for hyperglycemia (glucose 602), lactate 4.1 and negative BHB, upward trending INR from 3.46-4.10, AST 600s to 994, ALT 400s to 542, ammonia elevated at 57 and CK at 23,830. Admission PT was 35.6 seconds with T. Abiel 1.6 Tylenol negative, UA negative for infection and Covid PCR test was negative as well. CT head at OSH negative for hemorrhage, infarction mass or mass-effect but did show stable age-related atrophy and microvascular ischemic changes. CT abdomen/pelvis showed cirrhosis and nodules in the liver negative for ascites and positive for increased stool burden He was started on IV fluids, insulin, thiamine, lactulose, rifaximin and spironolactone but was transferred here for expert care of his decompensated liver cirrhosis ? At [facility] vital signs remained stable T 36.9 ?C, HR 78/min, RR 16/min, BP 147/69 mmHg and SPO2 94% on room air Patient's admission meld score elevated at 29, child Strauss score of 11 and Maddrey's discriminant function elevated at 103.7 points suggesting a poor prognosis that would benefit from steroid use" Date of Onset: prior to admission' Date of Admission: 03/06/2020 7:53:00 PM Demographics: Age: 64 Gender: Male Past Medical History and Radiographics: Significant rehabilitation considerations: as per epic: "Patient Active Problem List ?DiagnosisDate Noted ?Hepatic fgpvdzmyfzihgg09/02/2021 ?Type 2 diabetes mellitus, with long-term current use of rfmgwqx0103/06/2020 ?Alcoholic cirrhosis of liver without dyrebzx0903/06/2020 ?Chronic hepatitis C without hepatic coma03/06/2020 ??Treated 3 years ago by PCP in [place] ? ?CAD (coronary artery disease)03/06/2020 ??S/p [place] in 2018 ? ?Essential ircborlsxvxl35/02/2021 ?Falls swdcihzmyf58/02/2021 ? ? Past Surgical History CHOLECYSTECTOMY APPENDECTOMY " Rehabilitation Precautions/Restrictions: Covid Precautions Full Code OOB with assist High fall risk SUBJECTIVE Mental Status: Orientation:The patient is oriented to person, place and time. Command Following:Able to follow 2 step commands. Prior Functional Level: The patient reported the premorbid level of function was Pt needed help with dressing and washing with . Pt reported there are days he is able to walk to the bathroom, but recently he has had trouble walking and therefore spends alot of his time in bed. Occupation: retired Social History: Patient does not live alone. Patient lives with Pt liveds with and son can come and help. . If needed: Family member is willing to assist. Home Environment: There are 3 steps to enter the home with Bilateral handrails. There is no ramp to enter the home. Home is a single level. Description of bed and bathroom accessibility: tub shower with seat and grab bars are to be installed. . Equipment Owned: Rollator. Raised toilet seat. urinal Pain: Patient currently complains of pain. Location: RLE from groin to toes increased with movement . Patient describes pain as Nonspecific. Verbal Scale: Patient reports a pain level of 7 out of 10. Will perform therapy only as tolerated. Pain Medication Today: yes. OBJECTIVE General Observation: Pt is laying supine in bed with HOB elevated to 30 degrees. +mosimo, +Iv +saline lock Bed alarm was on at start of session. Range of Motion:Pt WFL in BLE but with significant pain. Pt limited to 90 degrees shoulder AROM with pain and weakness. Strength:4/5 grossly second to pain Skin Integrity Screen: all visible skin intact with gauze wrap around RUE wrist Tone/Spasticity: WNL throughout. Sensation: Absent as follows: Pt reports tingling with BLE toes, RLE toes are painful with light touch Balance: Standing static and dynamic limited secondary to pain. Endurance: fair (-). Coordination: Upper and lower extremity gross motor coordination grossly intact. Therapeutic/Functional Activities: Bed Mobility: Patient moves from supine to/from sit requiring minimal assistance. Min assist with feet and HOB raised to max elevation secondary to pain Transfers: Patient transferred sit to/from stand requiring contact guard assistance of 1 person. Patient used the following equipment: Transfer belt. Patient used the following equipment: rolling walker. Pt needed CG assist secondary to pain in legs Locomotion/Wheelchair: Not assessed. Locomotion/Gait/Ambulation: Patient was contact guard with gait/ambulation of 1 person for 3 feet to commode . Patient requires the following assistive device(s): Rolling walker. Gait belt. Antalgic. Shuffling steps. Narrow base of support. Stairs: Not assessed. Vital Signs: Stable. Outcome Measures: [facility]-PAC "6 Clicks" Basic Mobility Inpatient Short Form: Turning over in bed: A little difficulty (3) Sitting down on and standing up from a chair with arms: A little difficulty (3) Moving from lying on back to sitting on the side of the bed: A little difficulty (3) Moving to and from a bed to a chair (including a wheelchair): A little help (3) Walking in hospital room: A lot of help (2) Climbing 3-5 steps with a railing: A lot of help (2) Raw Score 16 /24. Interventions: None provided today. Education: Educational needs: POC, Role of PT, PT discharge Recommendations, safety Barriers to Learning: Pain Learning Preference: Auditory. Demonstration. Visual. Mode of education provided: Demonstration. Explanation. Audience: Patient. Education Provided: POC, Role of PT, PT discharge Recommendations, safety . Response: Indicates understanding. ASSESSMENT Moderate Complexity Evaluation: A history of present problem with 1-2 personal factors and/or comorbidities that impact the plan of care. An examination of body system(s) using standardized tests and measures addressing a total of 3 or more elements from any of the following: body structures and functions, activity limitations, and/or participation restrictions. An evolving clinical presentation with changing characteristics. Clinical decision-making of moderate complexity using standardized patient assessment instrument and/or measurable assessment of functional outcome. Response to Evaluation: The session was tolerated fair, as evidenced by: Patient demonstrated improved postural awareness. Bed alarm was on at end of session. Pain: Yes, pain is unchanged from start of today's treatment. Other Rehabilitation Considerations: Patient's progress may be impaired by the following potential barriers: Medical condition. Poor pain tolerance. Poor activity tolerance. Support Structure: Support structure is fair. Family member willing to assist patient. Strengths: Motivated to improve function. Goals: Patient's functional goals: Pt would like to go home safely. The patient's therapy goals are based on limitations/impairments in the following areas: Balance. Bed Mobility. Gait. Stairs/Curbs/Environmental barrier negotiation. Transfers. Short Term Goals: 1. Pt will perform bed mobility and tranfers with supervision and the least restrictive devices in 2 weeks. 2. Pt will walk 50 feet in 2 weeks withsupervision and least restrictive device in 2 weeks. 3. Pt will negotiate 3 steps with min assist and 2 handrails in 2 weeks. Residential Goals: 1. Pt will perform bed mobility and transfers with modified and the least restrictive devices in 4 weeks. 2. Pt will walk 250 feet with supervision and least restrictive device in 4 weeks. 3. Pt will negotiate 3 steps with supervision and 2 handrails in 4 weeks. PLAN Treatment Frequency, Duration and Interventions: Restorative Physical Therapy is recommended for 5x/week for 4 weeks Treatment is to include: Gait Training. Neuromuscular Re-education. Development of Cognitive Skills. Therapeutic Activity. Therapeutic Exercise. Equipment Provided: None issued this visit. Equipment Recommended: To be assessed. Recommended Physical Therapy Follow Up: Upon acute care discharge, the following is currently recommended: Anticipate patient will have inpatient rehab needs beyond the acute stay. Recommended Consults: None currently. Development of Plan of Care: Participants included: Nurse. Patient. Goal Review Visit Number: 1 Visit Number: Today's visit is number 1 Program: General Medicine (Therapist may be reached on Vocera) SESSION: Duration: 54 CHARGES: - ORDER - Physical Therapy Treatment 1 Units - ORDER - PHYSICAL THERAPY CONSULT 1 Units - GENERAL MEDICINE VISIT 1 Units 41620 - CHARGE - PT EVAL; MODERATE COMPLEXITY 4 Units - 0 Units - 0 Units - 0 Units - 0 Units Total treatment minutes: 54.00 Minutes Electronically Signed by: Kim Cabrales PT, DPT, 03/07/2020 11:02:12 AM * Assessment & Plan Note - Carol Sneed, OT - 03/07/2020 10:27 AM EST Occupational Therapy Acute Care Functional Living Examination Medical Diagnosis: Hepatic Encephalopathy Decompensated cirrhosis secondary to alcoholic liver disease Rhabdomyolysis History of Present Illness: per EPIC: "Mr. Francois Padilla is a 64 y.o. 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) with c/o of altered mental status and persistent bilateral lower extremity pain. He presented to ED of outside hospital with 2 week hx of bilateral lower extremity pain radiating form the groins to the feet, soreness, weakness and swelling with associated maya instability and frequent falls without head injuries, followed by a 3-5 day hx of worsening confusion, memory lapses and somnolence. He denies any seizures, vomiting, passage of dark colored stools, diarrhea or persistent constipation. Endorses nausea, mild RUQ abdominal pain, and exertional dyspnea but denies chest pain, abdominal distension,, fever, chills or rigor. He occassionally soils himself with urine or stool as he cannot get to the bathroom fast enough due to the lower extremity pain. ? At the OSH ED, vital signs were stable and labs were most significant for hyperglycemia (glucose 602), lactate 4.1 and negative BHB, upward trending INR from 3.46-4.10, AST 600s to 994, ALT 400s to 542, ammonia elevated at 57 and CK at 23,830. Admission PT was 35.6 seconds with T. Abiel 1.6 Tylenol negative, UA negative for infection and Covid PCR test was negative as well. CT head at OSH negative for hemorrhage, infarction mass or mass-effect but did show stable age-related atrophy and microvascular ischemic changes. CT abdomen/pelvis showed cirrhosis and nodules in the liver negative for ascites and positive for increased stool burden He was started on IV fluids, insulin, thiamine, lactulose, rifaximin and spironolactone but was transferred here for expert care of his decompensated liver cirrhosis ? 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 Sometimes can use the toilet by himself, sometimes needs help. Poor historian. Uses cane within thehome and rolling walker at times in the community. 6? falls in past 6 months. does all of the cooking, cleaning, medications. Has home care nurse comes once every 2-3 weeks- does meds, vitals. drives. reports he has recently been spending most of his time in bed. Occupation: not working Social History: Patient does not live alone. Patient lives with . If needed: Family member is willing to assist. can assist, does not work. son can also assist, but he works. Home Environment: There are 3 steps to enter the home with Bilateral handrails. There is no ramp to enter the home. Home is a single level. Description of bed and bathroom accessibility: tub/shower combo, shower chair. . Sleeps in hospital bed. Equipment Owned: shower chair, grab bars- but not installed, Cane, rollator Pain: Patient currently complains of pain. Location: back . Patient describes pain as Nonspecific. Verbal Scale: Patient reports a pain level of 9 out of 10. Will perform therapy only as tolerated. Pain Medication Today: yes. OBJECTIVE General Observation: Pt lying in bed, +tele, +PIV RUE Bed alarm was on at start of session. Vital Signs: Stable. UPPER EXTREMITY FUNCTION Hand Dominance: right. Range of Motion: BUE limited to 90 degrees shoulder flexion secondary to pain Strength: BUE grossly limited by pain Skin Integrity Screen: gauze wrap to L wrist/forearm, PIV BUES Endurance: fair. Tone/Spasticity: No relevant impairments. Sensation: reports tingling to bilateral toes, sharp pain to touch R>L Edema: No edema is present. LOWER EXTREMITY FUNCTION: BLE ROM and strength limited by pain Cognitive Screen: Responsiveness: Alert. Orientation: The patient is oriented to person, place and time. Following Commands: Able to follow 2 step commands. Memory: at times difficulty recalling events, timeline . Communications: Pt is able to verbally communicate wants/needs Executive Function: Pt demonstrates intact insight . Attention: Normal. Cognitive Test Score: Not tested. Vision Screen: No apparent functional visual impairment. Perception: Perception was within normal limits with today's examination. Functional Mobility: supine to sit, sit to supine min assist for managing LEs. transfers with CGA with rw Fine Motor Coordination: Upper extremity fine motor coordination is grossly intact. Gross Motor Coordination: Upper extremity gross motor coordination is intact. Balance: fair standing balance, relies on BUE support Activities of Daily Living: Feeding: Independent. Observed patient during task. Grooming: Modified independent. Observed patient during task. bed level Bathing - Upper Body: Minimal assistance. Observed patient during task. simulated Bathing - Lower Body: Maximal Assistance. Observed patient during task. simulated Upper Body Dressing: Minimal Assistance. Observed patient during task. Lower Body Dressing: Total assistance. Observed patient during task. Toileting: Maximal assistance. Observed patient during task. Toilet Transfer: Contact guard assistance. Observed patient during task. rolling walker, bedside commode Outcome Measure: [facility] AM-PAC "6 Clicks" Daily Activity Inpatient Short Form: Putting on and taking off regular lower body clothing: A lot of assistance (2) Bathing (including washing, rinsing, and drying): A lot of assistance (2) Toileting (including use of toilet, bedpan, or urinal): A lot of assistance (2) Putting on and taking off regular upper body clothing: A lot of assistance (2) Taking care of personal grooming such as brushing teeth: A little assistance (3) Eating meals: No assistance (4) Raw Score: 15 /24 Interventions: None provided today. Splinting: No splint issued today. Education: Educational needs: Role of OT, treatment plan, ADL retraining, task modifications, safety, transfer training, discharge recommendations Barriers to Learning: No barriers. Learning Preference: Auditory. Demonstration. Visual. Mode of education provided: Demonstration. Explanation. Audience: Patient. Education Provided: Role of OT, treatment plan, ADL retraining, task modifications, safety, transfer training, discharge recommendations . Response: Needs practice/reinforcement. Requires cues (auditory/physical). ASSESSMENT Moderate Complexity Evaluation: An occupational profile and medical and therapy history, which includes an expanded review of medical and/or therapy records and additional review of physical, cognitive, or psychosocial history related to current functional performance. An assessment(s) that identifies 3-5 performance deficits (i.e., relating to physical, cognitive, and psychosocial skills) that result in activity limitations and/or participation restrictions. Patient may present with comorbidities that affect occupational performance. Minimal to moderate modification of tasks or assistance (i.e., physical or verbal) with assessment(s) is necessary to enable patient to complete evaluation component. Clinical decision-making of moderate analytic complexity which includes an analysis of the occupational profile, analysis of data from detailed assessment(s), and consideration of several treatment options. Response to Evaluation: The session was tolerated fair, as evidenced by: pt limited by pain, motivated to improve Bed alarm was on at end of session. Call yip was in patient's reach at end of session. Pain: Yes, pain is unchanged from start of today's treatment. Strengths: Social/family support. Goals: Patient's functional goals: to go home The patient's therapy goals are based on limitations/impairments in the following areas: ADLs / IADLs. Short Term Goals: 1. Pt will complete toileting with supervision within two weeks. 2. Pt will complete functional transfers with supervision within two weeks. Mend Worker Goals: 1. Pt will complete full ADL routine with modified independence within four weeks. 2. Pt will complete all functional transfers with modified independence within four weeks. PLAN Treatment Frequency, Duration and Interventions: Restorative Occupational Therapy recommended for 5x/week for four weeks Treatment is to include: Development of Cognitive Skills. Neuromuscular Re-education. Self Care/Home Management. Therapeutic Activity. Therapeutic Exercise. Hot Cold Pack. Equipment Provided: None issued this visit. Equipment Recommended: To be assessed. Recommended Occupational Therapy Follow Up: Upon acute care discharge, the following is currently recommended: Anticipate patient will have inpatient rehab needs beyond the acute stay. Recommended Consults: Physical Therapy. Development of Plan of Care: Participants included: Patient. Nurse. Goal Review Visit Number: 1 Visit Number: Today's visit is number 1 Program: General Medicine (Therapist may be reached on Vocera) SESSION: Duration: 54 CHARGES: - ORDER - Occupational Therapy Treatment 1 Units - ORDER - OCCUPATIONAL THERAPY CONSULT 1 Units - GENERAL MEDICINE VISIT 1 Units [id number] - CHARGE - OT EVAL; MODERATE COMLEXITY 4 Units - 0 Units - 0 Units - 0 Units - 0 Units Total treatment minutes: 54.00 Minutes Electronically Signed by: AILYN Patel/Moody, 03/07/2020 10:55:07 AM * Plan of Care - Shandra Patel GN - 03/07/2020 3:01 AM EST Problem: Hemodynamic Status Goal: Patient will remain hemodynamically stable Description: Patient's vital signs, oxygenation, and labs will be monitored and deviations addressed. Outcome: Progressing Problem: Pain Goal: Pain is controlled to patient's desired goal Outcome: Progressing Problem: Risk for impaired skin integrity Goal: Skin integrity is maintained or improved Outcome: Progressing Problem: Fall Prevention Goal: No fall during Hospitalization Outcome: Progressing Problem: Impaired Physical Mobility Goal: Patient will maintain maximum physical mobility within prescribed activity and weight bearing restrictions Outcome: Progressing Problem: Risk for Infection Goal: The patient will receive immunization screening as indicated Outcome: Progressing Goal: Patient will remain free of infection in operative site Outcome: Progressing Goal: The patient will not develop pneumonia post-operatively Outcome: Progressing Goal: The patient will not develop Catheter Acquired Urinary Tract Infection (CA UTI) Outcome: Progressing Problem: Risk for DVT/PE Goal: Patient will not develop a DVT/PE Outcome: Progressing Problem: Risk for Gastrointestinal Complications Goal: Patient will not develop gastrointestinal complications Description: Nausea/vomiting, constipation, dehydration Outcome: Progressing Problem: Self Care Deficit Goal: Patient will perform Activities of Daily Living at optimal level Outcome: Progressing Problem: Psychosocial Needs Goal: Psychosocial needs will be met during this hospitalization Outcome: Progressing Problem: Discharge Needs Goal: Patient discharge needs are met Description: Collaborate with interdisciplinary team and initiate plans and inte rventions as needed Outcome: Progressing * Plan of Care - Benita Perez RN - 03/06/2020 10:00 PM EST Problem: Hemodynamic Status Goal: Patient will remain hemodynamically stable Description: Patient's vital signs, oxygenation, and labs will be monitored and deviations addressed. Outcome: Progressing Problem: Pain Goal: Pain is controlled to patient's desired goal Outcome: Progressing Problem: Risk for impaired skin integrity Goal: Skin integrity is maintained or improved Outcome: Progressing Problem: Fall Prevention Goal: No fall during Hospitalization Outcome: Progressing Problem: Impaired Physical Mobility Goal: Patient will maintain maximum physical mobility within prescribed activity and weight bearing restrictions Outcome: Progressing Problem: Risk for Infection Goal: The patient will receive immunization screening as indicated Outcome: Progressing Goal: Patient will remain free of infection in operative site Outcome: Progressing Goal: The patient will not develop pneumonia post-operatively Outcome: Progressing Goal: The patient will not develop Catheter Acquired Urinary Tract Infection (CA UTI) Outcome: Progressing Problem: Risk for DVT/PE Goal: Patient will not develop a DVT/PE Outcome: Progressing Problem: Risk for Gastrointestinal Complications Goal: Patient will not develop gastrointestinal complications Description: Nausea/vomiting, constipation, dehydration Outcome: Progressing Problem: Self Care Deficit Goal: Patient will perform Activities of Daily Living at optimal level Outcome: Progressing Problem: Psychosocial Needs Goal: Psychosocial needs will be met during this hospitalization Outcome: Progressing Problem: Discharge Needs Goal: Patient discharge needs are met Description: Collaborate with interdisciplinary team and initiate plans and inte rventions as needed Outcome: Progressing documented in this encounter Plan of Treatment Order Schedule Name Type Priority Associated Diag noses 4X Daily (AC & HS) for 30 Days starting 03/07/2020 until 04/05/2020, 10 completed POCT glucose, docked Point of Care Routine Testing-Docked Device Once for 1 Occurrences starting 03/07/19 21 until 03/07/2020 Basic Metabolic Panel Lab Routine Once for 1 Occurrences starting 03/08/19 21 until 03/08/2020 Hepatitis B core Lab Routine antibody, IgM Once for 1 Occurrences starting 03/08/19 21 until 03/08/2020 Hepatitis B surface Lab Routine antigen Once for 1 Occurrences starting 03/08/19 21 until 03/08/2020 Hepatitis C antibody Lab Routine Once for 1 Occurrences starting 03/08/19 21 until 03/08/2020 Hepatitis A antibody, IgM Lab Routine One Time Imaging Routine for 1 Occurrenc es starting 03/08/2020 until 03/08/2020 US Doppler Abdomen Pelvis Imaging Routine Organs Limited AM Draw for 4 Occurrences starting 03/09 until 03/12/2020, 2 completed Protime-INR Lab Routine Health Maintenance Due Date Last Done Comments MMR Vaccines (1 of 1 - 1956 Standard series) Varicella Vaccines (1 of 1956 2 - 2-dose childhood series) Pneumococcal Vaccine: 06/09/1963 Pediatrics (0 to 5 Years) and At-Risk Patients (6 to 64 Years) (1 of 1 - PPSV23) HIV Screening 1970 Diabetic Foot Exam 06/09/1975 Dilated Retinal Exam 06/09/1975 Urine Microalbumin 06/09/1975 Hepatitis B Vaccines (1 1976 of 3 - Risk 3-dose series) Colon Cancer Screening 10 06/09/2007 yrs Zoster Vaccines (1 of 2) 06/09/2007 Hemoglobin A1c 06/21/2019 12/20/2018 Influenza Vaccine 12/04/2019 Lipid Disorder Screening 12/21/2019 12/20/2018 Pneumococcal Vaccine: 65+ 2022 Years (1 of 1 - PPSV23) DTaP,Tdap,and Td Vaccines 11/13/2022 11/13/2012, (4 - Td) 11/13/2012, 01/30/2011, Additional history exists Hepatitis A Vaccines Aged Out 10/16/1997 No longer eligible based on patient's age to complete this topic Hepatitis C Screening (B. Completed 03/08/2020, [id number]) 03/06/2020, 03/06/2020, Additional history exists HIB Vaccines Aged Out No longer eligible based on patient's age to complete this topic IPV Vaccines Aged Out No longer eligible based on patient's age to complete this topic documented as of this encounter Procedures Comments Procedure Name Priority Date/Time Associated Diag nosis POCT GLUCOSE, DOCKED Routine 03/10/2020 11:38 AM EST POCT GLUCOSE, DOCKED Routine 03/10/2020 7:50 AM EST PROTIME INR Routine 03/10/2020 3:08 AM EST CK Routine 03/10/2020 3:08 AM EST BILIRUBIN, DIRECT Routine 03/10/2020 3:08 AM EST COMPREHENSIVE METABOLIC Routine 03/10/2020 PANEL 3:08 AM EST POCT GLUCOSE, DOCKED Routine 03/09/2020 9:12 PM EST POCT GLUCOSE, DOCKED Routine 03/09/2020 5:58 PM EST POCT GLUCOSE, DOCKED Routine 03/09/2020 5:02 PM EST POCT GLUCOSE, DOCKED Routine 03/09/2020 1:00 PM EST POCT GLUCOSE, DOCKED Routine 03/09/2020 11:36 AM EST POCT GLUCOSE, DOCKED Routine 03/09/2020 7:49 AM EST PROTIME INR Routine 03/09/2020 4:47 AM EST CBC Routine 03/09/2020 4:47 AM EST CK Routine 03/09/2020 4:47 AM EST BILIRUBIN, DIRECT Routine 03/09/2020 4:47 AM EST COMPREHENSIVE METABOLIC Routine 03/09/2020 PANEL 4:47 AM EST POCT GLUCOSE, DOCKED Routine 03/08/2020 9:17 PM EST POCT GLUCOSE, DOCKED Routine 03/08/2020 4:40 PM EST POCT GLUCOSE, DOCKED Routine 03/08/2020 11:46 AM EST POCT GLUCOSE, DOCKED Routine 03/08/2020 8:12 AM EST NEUTROPHIL CYTO AB Routine 03/08/2020 COMMENT 7:04 AM EST LIVER KIDNEY MICROS IGG Routine 03/08/2020 7:04 AM EST ACETAMINOPHEN, RANDOM Routine 03/08/2020 7:04 AM EST PROBNP Routine 03/08/2020 7:04 AM EST NEUTROPHIL CYTOPLASMIC Routine 03/08/2020 ANTIBODY 7:04 AM EST [id number] Routine 03/08/2020 7:04 AM EST MITOCHONDRIAL ANTIBODIES Routine 03/08/2020 7:04 AM EST CERULOPLASMIN Routine 03/08/2020 7:04 AM EST HEPATITIS PANEL, ACUTE Routine 03/08/2020 7:04 AM EST IGG SUBCLASSES Routine 03/08/2020 7:04 AM EST HEPATITIS C RNA, Routine 03/08/2020 QUANTITATIVE, PCR 7:04 AM EST ANTI-SMOOTH MUSCLE Routine 03/08/2020 ANTIBODY 7:04 AM EST HEPATITIS B SURFACE Routine 03/08/2020 ANTIBODY 7:04 AM EST PROTIME INR Routine 03/08/2020 7:04 AM EST D-DIMER, QUANTITATIVE Routine 03/08/2020 7:04 AM EST ALT Routine 03/08/2020 7:04 AM EST AST Routine 03/08/2020 7:04 AM EST PROTEIN, TOTAL Routine 03/08/2020 7:04 AM EST ALKALINE PHOSPHATASE Routine 03/08/2020 7:04 AM EST LACTATE DEHYDROGENASE Routine 03/08/2020 7:04 AM EST FERRITIN LEVEL Routine 03/08/2020 7:04 AM EST BILIRUBIN, DIRECT Routine 03/08/2020 7:04 AM EST BILIRUBIN, TOTAL Routine 03/08/2020 7:04 AM EST SALICYLATE LEVEL Routine 03/08/2020 7:04 AM EST RENAL FUNCTION PANEL Routine 03/08/2020 7:04 AM EST US ABDOMEN LIMITED [id number] Routine 03/08/2020 6:56 AM EST CBC Routine 03/08/2020 4:03 AM EST COMPREHENSIVE METABOLIC Routine 03/08/2020 PANEL 4:03 AM EST POCT GLUCOSE, DOCKED Routine 03/07/2020 9:22 PM EST POCT GLUCOSE, DOCKED Routine 03/07/2020 7:13 PM EST POCT GLUCOSE, DOCKED Routine 03/07/2020 5:57 PM EST POCT GLUCOSE, DOCKED Routine 03/07/2020 4:37 PM EST POCT GLUCOSE, DOCKED Routine 03/07/2020 11:43 AM EST POCT GLUCOSE, DOCKED Routine 03/07/2020 8:32 AM EST ETHYL ALCOHOL LEVEL Routine 03/07/2020 1:45 AM EST CBC Routine 03/07/2020 1:34 AM EST CK Routine 03/07/2020 1:34 AM EST COMPREHENSIVE METABOLIC Routine 03/07/2020 PANEL 1:34 AM EST URINALYSIS WITH Routine 03/07/2020 MICROSCOPIC 1:18 AM EST US ABDOMEN LIMITED [id number] STAT 03/06/2020 11:31 PM EST COVID-19 PCR Routine 03/06/2020 10:57 PM EST PROTIME INR STAT 03/06/2020 10:57 PM EST CBC AND DIFFERENTIAL Routine 03/06/2020 10:57 PM EST CK Routine 03/06/2020 10:57 PM EST HEPATIC FUNCTION PANEL A STAT 03/06/2020 10:57 PM EST BASIC METABOLIC PANEL STAT 03/06/2020 10:57 PM EST HEPATITIS C ANTIBODY Routine 03/06/2020 10:44 PM EST HEPATITIS C RNA, Routine 03/06/2020 QUANTITATIVE, PCR 10:44 PM EST POCT GLUCOSE, DOCKED Routine 03/06/2020 9:26 PM EST documented in this encounter Results * POCT glucose, docked (03/10/2020 11:38 AM EST) POC Glucose 191 (H) 70 - 140 mg/dL [facility] POC Specimen Whole Blood Performing Organization Address City/State/Zipcode Ph one Number POINT OF CARE TEST [address] [place] [address] [facility] POC [address] [place] [address] * POCT glucose, docked (03/10/2020 7:50 AM EST) POC Glucose 140 70 - 140 mg/dL [facility] POC Specimen Whole Blood Performing Organization Address [facility] Ph one Number POINT OF CARE TEST [address] [place] [address] [facility] POC [address] [place] [address] * Bilirubin, direct (03/10/2020 3:08 AM EST) Bilirubin, 0.4 (H) <0.3 mg/dL [facility] Direct CLINICAL PATHOLOGY Specimen Plasma Performing Organization Address [facility]/Count Includes [facility] one Number [facility] CLINICAL [address] [place], [place] [address] PATHOLOGY * Comprehensive Metabolic Panel (03/10/2020 3:08 AM EST) Albumin 1.7 (L) 3.5 - 5.2 g/dL [facility] PATHOLOGY Bilirubin, 1.1 <1.2 mg/dL [facility] Total CLINICAL PATHOLOGY Calcium 7.8 (L) 8.8 - 10.2 mg/dL [facility] CLINICAL PATHOLOGY Chloride 104 98 - 107 mmol/L [facility] PATHOLOGY Creatinine 0.79 0.70 - 1.20 mg/dL [facility] PATHOLOGY Glucose 269 (H) 70 - 140 mg/dL [facility] CLINICAL PATHOLOGY Alkaline 76 40 - 129 U/L [facility] Phosphatase CLINICAL PATHOLOGY Potassium 4.0 3.4 - 5.1 mmol/L [facility] PATHOLOGY Total Protein 5.1 (L) 6.4 - 8.3 g/dL [facility] PATHOLOGY Sodium 132 (L) 136 - 145 mmol/L [facility] CLINICAL PATHOLOGY AST/SGO 151 (H) <40 U/L [facility] PATHOLOGY Blood Urea 15 8 - 23 mg/dL [facility] Nitrogen CLINICAL PATHOLOGY Osmolality, Temo 284 275 - 300 mosm/kg [facility] CLINICAL PATHOLOGY BUN/Cre Ratio 19 [facility] CLINICAL PATHOLOGY Bicarbonate 23 22 - 29 mmol/L [facility] PATHOLOGY ALT/SGP 262 (H) <41 U/L [facility] PATHOLOGY Anion Gap 5 (L) 8 - 15 mmol/L [facility] CLINICAL PATHOLOGY GFR Non >90 >60 mL/min/1.73m2 [facility] UPSTAT E [place] 2008 CLINICAL CDK-EPI PATHOLOGY GFR >90 >60 mL/min/1.73m2 [facility] [place] 2008 CLINICAL CKD-EPI PATHOLOGY Specimen Plasma Performing Organization Address [facility]/Count Includes [facility] one Number [facility] CLINICAL [address] [place], [place] [address] PATHOLOGY * CK (03/10/2020 3:08 AM EST) CK 1,469 (H) 20 - 200 U/L [facility] CLINICAL PATHOLOGY Specimen Plasma Performing Organization Address [facility]/Count Includes [facility] one Number [facility] CLINICAL [address] [place], [place] [address] PATHOLOGY * Protime-INR (03/10/2020 3:08 AM EST) PT Patient 25.7 (H) 12.5 - 14.9 s [facility] Clin Pathology Int'l 2.29Comment: Routine intensity [facility] U pstate Normalized oral anticoagulation INR is Med Univ Clin Ratio typically 2.0-3.0. Target INR Patholo gy must be clinically individualized. Specimen Plasma Performing Organization Address [facility] one Number [facility] CLINICAL [address] [place], [place] [address] PATHOLOGY [facility] [address] [place], [place] [address] Clin Pathology * POCT glucose, docked (03/09/2020 9:12 PM EST) POC Glucose 211 (H) 70 - 140 mg/dL [facility] POC Specimen Whole Blood Performing Organization Address [facility]/Count Includes [facility] one Number POINT OF CARE TEST [address] [place] [address] [facility] POC [address] [place] [address] * POCT glucose, docked (03/09/2020 5:58 PM EST) POC Glucose 273 (H) 70 - 140 mg/dL [facility] POC Specimen Whole Blood Performing Organization Address [facility]/Count Includes [facility] one [facility] POINT OF CARE TEST [address] [place] [address] [facility] POC [address] [place] [address] * POCT glucose, docked (03/09/2020 5:02 PM EST) POC Glucose 256 (H) 70 - 140 mg/dL [facility] POC Specimen Whole Blood Performing Organization Address [facility] POINT OF CARE TEST [address] [place] [address] [facility] POC [address] [place] [address] * POCT glucose, docked (03/09/2020 1:00 PM EST) POC Glucose 236 (H) 70 - 140 mg/dL [facility] POC Specimen Whole Blood Performing Organization Address [facility] POINT OF CARE TEST [address] [place], [place] [id number] [place] [address] POC [address] [place] [address] * POCT glucose, docked (03/09/2020 11:36 AM EST) POC Glucose 206 (H) 70 - 140 mg/dL [facility] POC Specimen Whole Blood Performing Organization Address [facility] POINT OF CARE TEST [address] [place], [place] [id number] [place] [address] POC [address] [place] [address] * POCT glucose, docked (03/09/2020 7:49 AM EST) POC Glucose 172 (H) 70 - 140 mg/dL [facility] POC Specimen Whole Blood Performing Organization Address [facility] POINT OF CARE TEST [address] [place], [place] [id number] [place] [address] POC [address] [place] [address] * Bilirubin, direct (03/09/2020 4:47 AM EST) Bilirubin, 0.5 (H) <0.3 mg/dL [facility] Direct CLINICAL PATHOLOGY Specimen Plasma Performing Organization Address [facility] Number [facility] CLINICAL [address] [place], [place] [address] PATHOLOGY * Comprehensive Metabolic Panel (03/09/2020 4:47 AM EST) Albumin 1.9 (L) 3.5 - 5.2 g/dL [facility] CLINICAL PATHOLOGY Bilirubin, 1.6 (H) <1.2 mg/dL [facility] Total CLINICAL PATHOLOGY Calcium 7.8 (L) 8.8 - 10.2 mg/dL [facility] CLINICAL PATHOLOGY Chloride 107 98 - 107 mmol/L [facility] PATHOLOGY Creatinine 0.82 0.70 - 1.20 mg/dL [facility] PATHOLOGY Glucose 228 (H) 70 - 140 mg/dL [facility] PATHOLOGY Alkaline 72 40 - 129 U/L [facility] Phosphatase CLINICAL PATHOLOGY Potassium 3.7 3.4 - 5.1 mmol/L [facility] PATHOLOGY Total Protein 5.3 (L) 6.4 - 8.3 g/dL [facility] PATHOLOGY Sodium 132 (L) 136 - 145 mmol/L [facility] PATHOLOGY AST/SGO 253 (H) <40 U/L [facility] PATHOLOGY Blood Urea 15 8 - 23 mg/dL [facility] Nitrogen CLINICAL PATHOLOGY Osmolality, Temo 283 275 - 300 mosm/kg [facility] CLINICAL PATHOLOGY BUN/Cre Ratio 19 [facility] PATHOLOGY Bicarbonate 20 (L) 22 - 29 mmol/L [facility] PATHOLOGY ALT/SGP 339 (H) <41 U/L [facility] PATHOLOGY Anion Gap 6 (L) 8 - 15 mmol/L [facility] PATHOLOGY GFR Non >90 >60 mL/min/1.73m2 [facility] 2008 CLINICAL CDK-EPI PATHOLOGY GFR >90 >60 mL/min/1.73m2 [facility] 2008 CLINICAL CKD-EPI PATHOLOGY Specimen Plasma Performing Organization Address City/[facility] Ph one Number [facility] CLINICAL [address] [place], [place] [address] PATHOLOGY * CK (03/09/2020 4:47 AM EST) CK 3,003 (H)Comment: Confirmed 20 - 200 U/L CLINICAL PATHOLOGY Specimen Plasma Performing Organization Address City/[facility] Ph one Number [facility] CLINICAL [address] [place], [place] [address] PATHOLOGY * Protime-INR (03/09/2020 4:47 AM EST) PT Patient 26.1 (H) 12.5 - 14.9 s [facility] Clin Pathology Int'l 2.34Comment: Routine intensity [place] Normalized oral anticoagulation INR is Med Univ Clin Ratio typically 2.0-3.0. Target INR Patholo gy must be clinically individualized. Specimen Plasma Performing Organization Address [facility] Ph one Number [facility] CLINICAL [address] [place], [place] [address] PATHOLOGY [facility] [address] [place], [place] [address] Clin Pathology * CBC (03/09/2020 4:47 AM EST) Pathologist [facility] White Blood 5.8 4 - 10 10*3/uL [facility] Cell Counts Include [address] [facility] Clin Pathology Red Blood Cell 3.22 (L) 4.6 - 6.1 10*6/uL [facility] Clin Pathology Hemoglobin 11.1 (L) 13.5 - 18 g/dL [facility] Clin Pathology Hematocrit 32.7 (L) 41 - 53 % [facility] Clin Pathology Mean Cell 101.6 (H) 80 - 96 fL [facility] Volume [facility] Univ Clin Pathology Mean Cell 34.3 (H) 27 - 33 pg [facility] Hemoglobin Med Univ Clin Pathology Mean Cell Hgb 33.8 32.0 - 36.0 g/dL [facility] Conc Counts Include [address] Clin Pathology Red Cell Dist 17.3 (H) 11.5 - 14.5 % [facility] Width Counts Include [address] [facility] Clin Pathology Platelet Count 97 (L) 150 - 400 10*3/uL [facility] Pathology Specimen EDTA Whole Blood Performing Organization Address City/[facility]/Count Includes [facility] one Number [facility] CLINICAL [address] [place], [place] [address] PATHOLOGY [facility] [address] [place], [place] [address] Clin Pathology * POCT glucose, docked (03/08/2020 9:17 PM EST) Pathologist [facility] POC Glucose 308 (H) 70 - 140 mg/dL [facility] POC Specimen Whole Blood Performing Organization Address [facility]/Count Includes [facility] one Number POINT OF CARE TEST [address] [place] [address] [facility] POC [address] [place] [address] * POCT glucose, docked (03/08/2020 4:40 PM EST) POC Glucose 236 (H) 70 - 140 mg/dL [facility] POC Specimen Whole Blood Performing Organization Address [facility] POINT OF CARE TEST [address] [place], [place] [id number] [place] [address] POC [address] [place] [address] * POCT glucose, docked (03/08/2020 11:46 AM EST) Pathologist [facility] POC Glucose 285 (H) 70 - 140 mg/dL [facility] POC Specimen Whole Blood Performing Organization Address [facility] POINT OF CARE TEST [address] [place] [address] [facility] POC [address] [place] [address] * POCT glucose, docked (03/08/2020 8:12 AM EST) [facility] POC Glucose 255 (H) 70 - 140 mg/dL [facility] POC Specimen Whole Blood Performing Organization Address [facility] POINT OF CARE TEST [address] [place], [place] [id number] [place] [address] POC [address] [place] [address] * NEUTROPHIL CYTO AB COMMENT (03/08/2020 7:04 AM EST) [facility] Neutrophil Cyto TEST NOT PERFORMED [facility] AB Comment CLINICAL PATHOLOGY Specimen Serum Performing Organization [facility] Number [facility] CLINICAL [address] [place], [place] [address] PATHOLOGY * LDH (03/08/2020 7:04 AM EST) [facility] Lactate 1,330 (H)Comment: Confirmed 122 - 225 U/L dehydrogenase CLINICAL PATHOLOGY Specimen Plasma Performing Organization Address [facility] one Number [facility] CLINICAL [address] [place], [place] [address] PATHOLOGY * D-dimer, quantitative (03/08/2020 7:04 AM EST) [facility] D-DIMER 0.57 (H) <0.50 ug/mL{FEU} [facility] Clin Pathology Specimen Plasma Performing Organization Address [facility] one Number [facility] CLINICAL [address] [place], [place] [address] [address] Clin Pathology * proBNP (03/08/2020 7:04 AM EST) proBNP 805 (H) <125 pg/mL [facility] CLINICAL PATHOLOGY Specimen Plasma Performing Organization Address [facility] one Number [address] [address] PATHOLOGY * Protein, total (03/08/2020 7:04 AM EST) Total Protein 5.3 (L) 6.4 - 8.3 g/dL [facility] CLINICAL PATHOLOGY Specimen Plasma Performing Organization Address [facility] one Number [address] [address] PATHOLOGY * Bilirubin, total (03/08/2020 7:04 AM EST) Bilirubin, 2.2 (H) <1.2 mg/dL [facility] Total CLINICAL PATHOLOGY Specimen Plasma Performing Organization Address [facility] one Number [address] [address] PATHOLOGY * Bilirubin, direct (03/08/2020 7:04 AM EST) Bilirubin, 0.7 (H) <0.3 mg/dL [facility] Direct CLINICAL PATHOLOGY Specimen Plasma Performing Organization Address [facility] one Number [address] [address] PATHOLOGY * AST (03/08/2020 7:04 AM EST) AST/SGO 469 (H) <40 U/L [facility] CLINICAL PATHOLOGY Specimen Plasma Performing Organization Address [facility] one Number [address] [address] PATHOLOGY * ALT (03/08/2020 7:04 AM EST) ALT/SGP 432 (H) <41 U/L [facility] CLINICAL PATHOLOGY Specimen Plasma Performing Organization Address [facility]/Count Includes [facility] one Number [address] [address] PATHOLOGY * Alkaline phosphatase (03/08/2020 7:04 AM EST) Alkaline 76 40 - 129 U/L [facility] Phosphatase CLINICAL PATHOLOGY Specimen Plasma Performing Organization Address [facility]/Count Includes [facility] one Number [facility] [address] [place], [place] [address] PATHOLOGY * Renal function panel (03/08/2020 7:04 AM EST) Albumin 1.9 (L) 3.5 - 5.2 g/dL [facility] CLINICAL PATHOLOGY Sodium 130 (L) 136 - 145 mmol/L [facility] CLINICAL PATHOLOGY Potassium 4.0 3.4 - 5.1 mmol/L [facility] CLINICAL PATHOLOGY Chloride 104 98 - 107 mmol/L [facility] CLINICAL PATHOLOGY Bicarbonate 19 (L) 22 - 29 mmol/L [facility] PATHOLOGY Glucose 270 (H) 70 - 140 mg/dL [facility] CLINICAL PATHOLOGY Blood Urea 13 8 - 23 mg/dL [facility] Nitrogen CLINICAL PATHOLOGY Creatinine 0.73 0.70 - 1.20 mg/dL [facility] CLINICAL PATHOLOGY Calcium 7.9 (L) 8.8 - 10.2 mg/dL [facility] CLINICAL PATHOLOGY Phosphorus 2.3 (L) 2.5 - 4.5 mg/dL [facility] CLINICAL PATHOLOGY GFR Non >90 >60 mL/min/1.73m2 [facility] [place] 2008 CLINICAL CDK-EPI PATHOLOGY GFR >90 >60 mL/min/1.73m2 [facility] [place] 2009 CLINICAL CKD-EPI PATHOLOGY Specimen Plasma Performing Organization Address [facility] one Number [facility] CLINICAL [address] [place], [place] [address] PATHOLOGY * Protime-INR (03/08/2020 7:04 AM EST) PT Patient 30.9 (H) 12.5 - 14.9 s [facility] Med Univ Clin Pathology Int'l 2.89Comment: Routine intensity [place] Normalized oral anticoagulation INR is Med Univ Clin Ratio typically 2.0-3.0. Target INR Patholo gy must be clinically individualized. Specimen Plasma Performing Organization Address [facility]/Count Includes [facility] one Number [address] 1321 PATHOLOGY [facility] [address] [place], [place] [address] Clin Pathology * Liver Kidney Micros IgG (03/08/2020 7:04 AM EST) Liver Kidney <20.1 0.0 - 20.0 Units [facility] Rarit an Micros IgG Comment: (NOTE) Negative 0.0 - 20.0 Equivocal 20.1 - 24.9 Positive >24.9 LKM type 1 antibodies are detected in patients with autoimmune hepatitis type 2 and in up to 8% of patients with chronic HCV infection. Performed At: RN [facility] [address] [place], [place] [id number] Nikita Bee MD Ph:[phone] Specimen Serum Performing Organization Address [facility]/Count Includes [facility] one Number [address] 1321 PATHOLOGY [facility] [address] [phone] * Ceruloplasmin (03/08/2020 7:04 AM EST) Ceruloplasmin 16 15 - 30 mg/dl [facility] CLINICAL PATHOLOGY Specimen Plasma Performing Organization Address [facility] Ph one Number [address] 1321 PATHOLOGY * Nofak-2-xdyvrdscjed (03/08/2020 7:04 AM EST) Ztxmt-9-Xfkxjdb 110 90 - 200 mg/dl [facility] psin CLINICAL PATHOLOGY Specimen Plasma Performing Organization Address [facility] Ph one Number [address] 1321 PATHOLOGY * Ferritin Level (03/08/2020 7:04 AM EST) Ferritin 170 30 - 400 ng/ml [facility] CLINICAL PATHOLOGY Specimen Plasma Performing Organization Address [facility] Ph one Number [address] 1321 PATHOLOGY * IgG Subclasses (03/08/2020 7:04 AM EST) Immunoglobulin 1,984 (H) 603 - 1,613 mg/dL [facility], Serum IgG Subclass 1 1,143 (H) 248 - 810 mg/dL [facility] CLINICAL PATHOLOGY IgG Subclass 2 316 130 - 555 mg/dL [facility] CLINICAL PATHOLOGY IgG Subclass 3 74 15 - 102 mg/dL [facility] CLINICAL PATHOLOGY IgG Subclass 4 97 (H) 2 - 96 mg/dL [facility] Comment: CLINICAL (NOTE) PATHOLOGY Performed At: [facility] [id number] Lonnie Coburn MD Ph:[phone] Performed At: RN [facility] [address] [place], [place] [id number] Nikita Bee MD Ph:[phone] Specimen Serum Performing Organization Address City/State/[facility] one Number [facility] CLINICAL [address] [place], [place] 132[address] PATHOLOGY [facility] [address] [phone] * Neutrophil Cytoplasmic Antibody (03/08/2020 7:04 AM EST) NEUTROPHIL CYTO Negative Negative 1/dil [facility] CLINICAL PATHOLOGY Specimen Serum Performing Organization Address City/State/Zipcode Ph one Number [facility] CLINICAL [address] [place], [place] [address] PATHOLOGY * Anti-smooth muscle antibody (03/08/2020 7:04 AM EST) Smooth Muscle Negative Negative [facility] CLINICAL PATHOLOGY Specimen Serum Performing Organization Address City/State/Zipcode Ph one Number [facility] CLINICAL [address] [place], [place] [address] PATHOLOGY * Mitochondrial antibodies (03/08/2020 7:04 AM EST) Mitochondrial Negative Negative [facility] CLINICAL PATHOLOGY Specimen Serum Performing Organization Address City/State/[facility] one Number [facility] CLINICAL [address] [place], [place] [address] PATHOLOGY * Salicylate level (03/08/2020 7:04 AM EST) Salicylate <1.0 (L) 3.0 - 30.0 mg/dL [facility] CLINICAL PATHOLOGY Specimen Plasma Performing Organization Address City/State/Count Includes [facility] one Number [facility] CLINICAL [address] [place], [place] [address] PATHOLOGY * Acetaminophen, Random (03/08/2020 7:04 AM EST) [facility] Acetaminophen, <5.0 (L) 10.0 - 30.0 ug/mL [facility] Random CLINICAL PATHOLOGY Specimen Plasma Performing Organization Address [facility]/Count Includes [facility] one Number [facility] CLINICAL [address] [place], [place] [address] PATHOLOGY * Hepatitis C RNA, quantitative, PCR (03/08/2020 7:04 AM EST) [facility] Hepatitis C HCV Not Detected IU/mL [facility] an Quant HCV Log 10 Testing not performed [facility] [place] Test Comment [facility] Information Comment: (NOTE) The quantitative range of this assay is 15 IU/mL to 100 million IU/mL. Performed At: RN [address] [id number] Nikita Bee MD Ph:[phone] Specimen Serum Performing Organization Address [facility]/Count Includes [facility] one Number [address] [phone] * Hepatitis B surface antibody (03/08/2020 7:04 AM EST) [facility] Hepatitis B 18 >11.4 m[IU]/mL [facility] Surface Ab Comment: CLINICAL Reactive PATHOLOGY Immunity due to hepatitis B immunization or natural infection. Specimen Serum Performing Organization Address [facility]/Count Includes [facility] one Number [address] 1321 PATHOLOGY * Hepatitis panel, acute (03/08/2020 7:04 AM EST) [facility] Hepatitis A IgM Non ReactiveComment: No acute Non Reactive [facility] Ab infection, susceptible to CLINICAL infection. PATHOLOGY Hepatitis B Non ReactiveComment: IgM Non Reactive [facility] Core IgM Ab antibodies to HBc were not CLINICAL detected, does not exclude the PATHOLOGY possibility of exposure to HBV. Hepatitis C Ab Reactive (A)Comment: Past or Non Reactive [facility] current Hepatitis C infection. CLINICAL Specimen forwarded to PATHOLOGY reference laboratory for quantitative HCV RNA testing. Hepatitis B Non ReactiveComment: No active Non Reactive [facility] Surface Ag or previous infection. CLINICAL Susceptible to infection. PATHOLOGY Specimen Serum Performing Organization Address City/State/Zipcode Ph one Number [facility] CLINICAL [address] [place], [place] [address] PATHOLOGY * US Abdomen Limited (03/08/2020 6:56 AM EST) Specimen Narrative Performed At PROCEDURE INFORMATION: [facility] RADIOLOGY Exam: US Abdomen, Limited; Right Upper Quadrant Exam date and time: 03/08/2020 5:35 AM Age: 64 years old Clinical indication: Screening exam; Ot her: Evaluate ruq TECHNIQUE: Imaging protocol: US abdomen. Real time ultrasound with image documentation. Limited exam focused on the right upper quadrant. COMPARISON: US ABDOMEN LIMITED [id number] PORTABLE 021 11:29 PM FINDINGS: Liver: The liver is increased in echote xture, suggesting fatty infiltration. There is no demonstrated mass or intrah epatic biliary ductal dilatation, evaluation for which is somewhat limite d due to the increased echotexture. Gallbladder: The patient is status post cholecystectomy. No collection is demonstrated in the gallbladder fossa. Common bile duct: The common bile duct was difficult to visualize due to patient motion, but may be seen as a 4 mm caliber structure. Pancreas: The pancreas is largely obscu red by overlying bowel gas. Right kidney: The right kidney measures 10.1 x 5.9 x 5.6 cm. Its cortex measures 1.7 cm in thickness. Normal ap pearing echotexture. There is no hydronephrosis or demonstrated renal st one, cyst or mass. Inferior vena cava: The IVC is present. IMPRESSION: 1. Fatty liver. 2. Prior cholecystectomy. 3. Pancreas largely obscured by bowel g as. 4. Common bile duct difficult to visual ize due to motion, may be normal in caliber. THIS DOCUMENT HAS BEEN ELECTRONICALLY S IGNED BY KERRI VALERA MD Procedure Note Interface, Received Via [employer] System - 03/08/2020 7:46 AM EST PROCEDURE INFORMATION: Exam: US Abdomen, Limited; Right Upper Quadrant Exam date and time: 03/08/2020 5:35 AM Age: 64 years old Clinical indication: Screening exam; Other: Evaluate ruq TECHNIQUE: Imaging protocol: US abdomen. Real time ultrasound with image documentation. Limited exam focused on the right upper quadrant. COMPARISON: US ABDOMEN LIMITED [id number] PORTABLE 03/06/2020 11:29 PM FINDINGS: Liver: The liver is increased in echotexture, suggesting fatty infiltration. There is no demonstrated mass or intrahepatic biliary ductal dilatation, evaluation for which is somewhat limited due to the increased echotexture. Gallbladder: The patient is status post cholecystectomy. No collection is demonstrated in the gallbladder fossa. Common bile duct: The common bile duct was difficult to visualize due to patient motion, but may be seen as a 4 mm caliber structure. Pancreas: The pancreas is largely obscured by overlying bowel gas. Right kidney: The right kidney measures 10.1 x 5.9 x 5.6 cm. Its cortex measures 1.7 cm in thickness. Normal appearing echotexture. There is no hydronephrosis or demonstrated renal stone, cyst or mass. Inferior vena cava: The IVC is present. IMPRESSION: 1. Fatty liver. 2. Prior cholecystectomy. 3. Pancreas largely obscured by bowel ga s. 4. Common bile duct difficult to visuali ze due to motion, may be normal in caliber. THIS DOCUMENT HAS BEEN ELECTRONICALLY SIGNED BY KERRI VALERA MD Performing Organization Address City/State/Zipcode Ph one Number [facility] RADIOLOGY [address] [place] [address] * Comprehensive Metabolic Panel (03/08/2020 4:03 AM EST) Albumin 2.0 (L) 3.5 - 5.2 g/dL [facility] CLINICAL PATHOLOGY Bilirubin, 2.2 (H) <1.2 mg/dL [facility] Total CLINICAL PATHOLOGY Calcium 7.8 (L) 8.8 - 10.2 mg/dL [facility] CLINICAL PATHOLOGY Chloride 107 98 - 107 mmol/L [facility] CLINICAL PATHOLOGY Creatinine 0.71 0.70 - 1.20 mg/dL [facility] CLINICAL PATHOLOGY Glucose 274 (H) 70 - 140 mg/dL [facility] CLINICAL PATHOLOGY Alkaline 80 40 - 129 U/L [facility] Phosphatase CLINICAL PATHOLOGY Potassium 4.0 3.4 - 5.1 mmol/L [facility] PATHOLOGY Total Protein 5.2 (L) 6.4 - 8.3 g/dL [facility] CLINICAL PATHOLOGY Sodium 133 (L) 136 - 145 mmol/L [facility] CLINICAL PATHOLOGY AST/SGO 501 (H) <40 U/L [facility] CLINICAL PATHOLOGY Blood Urea 14 8 - 23 mg/dL [facility] CLINICAL PATHOLOGY Osmolality, Temo 286 275 - 300 mosm/kg [facility] PATHOLOGY BUN/Cre Ratio 20 [facility] CLINICAL PATHOLOGY Bicarbonate 19 (L) 22 - 29 mmol/L [facility] PATHOLOGY ALT/SGP 441 (H) <41 U/L [facility] PATHOLOGY Anion Gap 7 (L) 8 - 15 mmol/L [facility] PATHOLOGY GFR Non >90 >60 mL/min/1.73m2 [facility] 2008 CLINICAL CDK-EPI PATHOLOGY GFR >90 >60 mL/min/1.73m2 [facility] 2008 CLINICAL CKD-EPI PATHOLOGY Specimen Plasma Performing Organization Address City/[facility] Ph one Number [facility] [address] [place], [place] [address] PATHOLOGY * CBC (03/08/2020 4:03 AM EST) White Blood 7.0 4 - 10 10*3/uL [facility] Univ Clin Pathology Red Blood Cell 3.33 (L) 4.6 - 6.1 10*6/uL [facility] Clin Pathology Hemoglobin 11.4 (L) 13.5 - 18 g/dL [facility] Clin Pathology Hematocrit 33.5 (L) 41 - 53 % [facility] Clin Pathology Mean Cell 100.7 (H) 80 - 96 fL [facility] Volume [facility] Univ Clin Pathology Mean Cell 34.2 (H) 27 - 33 pg [facility] Hemoglobin [facility] Univ Clin Pathology Mean Cell Hgb 34.0 32.0 - 36.0 g/dL [facility] Clin Pathology Red Cell Dist 16.6 (H) 11.5 - 14.5 % [facility] Width Counts Include 234 Beds At [facility] Clin Pathology Platelet Count 90 (L) 150 - 400 10*3/uL [facility] Clin Pathology Specimen EDTA Whole Blood Performing Organization Address [facility] Ph one Number [facility] CLINICAL [address] [place], [place] [address] PATHOLOGY [facility] [address] [place], [place] [address] Clin Pathology * POCT glucose, docked (03/07/2020 9:22 PM EST) POC Glucose 300 (H) 70 - 140 mg/dL [facility] POC Specimen Whole Blood Performing Organization Address [facility]/Count Includes [facility] one Number POINT OF CARE TEST [address] [place], [place] [id number] [place] [address] POC [address] [place] [address] * POCT glucose, docked (03/07/2020 7:13 PM EST) POC Glucose 314 (H) 70 - 140 mg/dL [facility] POC Specimen Whole Blood Performing Organization Address [facility]/Count Includes [facility] one Number POINT OF CARE TEST [address] [place], [place] [id number] [place] [address] POC [address] [place] [address] * POCT glucose, docked (03/07/2020 5:57 PM EST) POC Glucose 264 (H) 70 - 140 mg/dL [facility] POC Specimen Whole Blood Performing Organization Address [facility]/Count Includes [facility] one [facility] POINT OF CARE TEST [address] [place], [place] [id number] [place] [address] POC [address] [place] [address] * POCT glucose, docked (03/07/2020 4:37 PM EST) POC Glucose 233 (H) 70 - 140 mg/dL [facility] POC Specimen Whole Blood Performing Organization Address [facility]/Count Includes [facility] one Number POINT OF CARE TEST [address] [place], [place] [id number] [place] [address] POC [address] [place] [address] * POCT glucose, docked (03/07/2020 11:43 AM EST) POC Glucose 326 (H) 70 - 140 mg/dL [facility] POC Specimen Whole Blood Performing Organization Address [facility]/Count Includes [facility] one Number POINT OF CARE TEST [address] [place] [address] [facility] POC [address] [place] [address] * POCT glucose, docked (03/07/2020 8:32 AM EST) POC Glucose 315 (H) 70 - 140 mg/dL [facility] POC Specimen Whole Blood Performing Organization Address [facility]/Count Includes [facility] one Number POINT OF CARE TEST [address] [place] [address] [facility] POC [address] [place] [address] * Ethyl Alcohol Level (03/07/2020 1:45 AM EST) Ethyl Alcohol Negative Negative g/dl [facility] CLINICAL PATHOLOGY Specimen Plasma Performing Organization Address [facility]/Count Includes [facility] one Number [facility] CLINICAL [address] [place], [place] [address] PATHOLOGY * CK (03/07/2020 1:34 AM EST) CK 14,700 (H)Comment: Confirmed 20 - 200 U/L [facility] CLINICAL PATHOLOGY Specimen Plasma Performing Organization Address [facility]/Count Includes [facility] one Number [facility] CLINICAL [address] [place], [place] [address] PATHOLOGY * Comprehensive Metabolic Panel (03/07/2020 1:34 AM EST) Albumin 1.9 (L) 3.5 - 5.2 g/dL [facility] PATHOLOGY Bilirubin, 1.8 (H) <1.2 mg/dL [facility] Total CLINICAL PATHOLOGY Calcium 7.8 (L) 8.8 - 10.2 mg/dL [facility] CLINICAL PATHOLOGY Chloride 103 98 - 107 mmol/L [facility] PATHOLOGY Creatinine 0.78 0.70 - 1.20 mg/dL [facility] PATHOLOGY Glucose 336 (H) 70 - 140 mg/dL [facility] PATHOLOGY Alkaline 85 40 - 129 U/L [facility] Phosphatase CLINICAL PATHOLOGY Potassium 4.5 3.4 - 5.1 mmol/L [facility] PATHOLOGY Total Protein 5.3 (L) 6.4 - 8.3 g/dL [facility] CLINICAL PATHOLOGY Sodium 133 (L) 136 - 145 mmol/L [facility] PATHOLOGY AST/SGO 852 (H)Comment: Confirmed <40 U/L [facility] PATHOLOGY Blood Urea 14 8 - 23 mg/dL [facility] Nitrogen CLINICAL PATHOLOGY Osmolality, Temo 289 275 - 300 mosm[facility] BUN/Cre Ratio 18 [facility] CLINICAL PATHOLOGY Bicarbonate 22 22 - 29 mmol/L [facility] CLINICAL PATHOLOGY ALT/SGP 505 (H) <41 U/L [facility] CLINICAL PATHOLOGY Anion Gap 9 8 - 15 mmol/L [facility] CLINICAL PATHOLOGY GFR Non >90 >60 mL/min/1.73m2 [facility] 2008 CLINICAL CDK-EPI PATHOLOGY GFR >90 >60 mL/min/1.73m2 [facility] 2008 CLINICAL CKD-EPI PATHOLOGY Specimen Plasma Performing Organization Address [facility] Ph one Number [facility] CLINICAL [address] [place], [place] [address] PATHOLOGY * CBC (03/07/2020 1:34 AM EST) White Blood 6.8 4 - 10 10*3/uL [facility] Cell [facility] Univ Clin Pathology Red Blood Cell 3.38 (L) 4.6 - 6.1 10*6/uL [facility] Clin Pathology Hemoglobin 11.5 (L) 13.5 - 18 g/dL [facility] Clin Pathology Hematocrit 33.7 (L) 41 - 53 % [facility] Clin Pathology Mean Cell 99.8 (H) 80 - 96 fL [facility] Volume Med Univ Clin Pathology Mean Cell 34.0 (H) 27 - 33 pg [facility] Hemoglobin Med Univ Clin Pathology Mean Cell Hgb 34.0 32.0 - 36.0 g/dL [facility] Conc [facility] Univ Clin Pathology Red Cell Dist 16.3 (H) 11.5 - 14.5 % [facility] Width [facility] Univ Clin Pathology Platelet Count 82 (L) 150 - 400 10*3/uL [facility] Clin Pathology Specimen EDTA Whole Blood Performing Organization Address [facility] Ph one Number [facility] CLINICAL [address] [place], [place] [address] PATHOLOGY [facility] [address] [place], [place] [address] Clin Pathology * Urinalysis with microscopic (03/07/2020 1:18 AM EST) Color Colorless [facility] Univ Clin Pathology Clarity Clear [facility] Univ Clin Pathology Specific 1.005 1.003 - 1.030 [facility] Univ Clin Pathology PH Urine 5.0 5.0 - 8.0 [facility] Clin Pathology Total Protein Negative Negative mg/dL [facility] UA Med Univ Clin Pathology Glucose UA Negative Negative mg/dL [facility] Univ Clin Pathology Ketone Urine Negative Negative mg/dL [facility] Clin Pathology Bilirubin Negative Negative [facility] Clin Pathology Hemoglobin, 2+ (A) Negative [facility] Urine [facility] Univ Clin Pathology Leukocyte Negative Negative Efra/uL [facility] Esterase [facility] Univ Clin Pathology Nitrite Negative Negative [facility] Clin Pathology WBC 1 0 - 5 /HPF [facility] Clin Pathology RBC 6 (H) 0 - 3 /HPF [facility] Clin Pathology Bacteria, UA 1+ (A) None /HPF [facility] Clin Pathology Squam Epithel, <1 (A) None /HPF [facility] UA Med Univ Clin Pathology Mucus, UA Trace (A) None /LPF [facility] Clin Pathology Sperm, UA 2 (A) None /[HPF] [facility] Clin Pathology Specimen Urine Performing Organization Address [facility]/Count Includes [facility] one Number [facility] CLINICAL [address] [place], [place] [address] PATHOLOGY [facility] [address] [place], [place] [address] Clin Pathology * US Abdomen Limited (03/06/2020 11:31 PM EST) Specimen Narrative Performed At PROCEDURE INFORMATION: [facility] RAD[facility]OLOG[facility] Exam: US Abdomen; Limited Exam date and time: 03/06/2020 11:20 PM Age: 64 years old Clinical indication: Other: Hepatic enc ephalopathy; Additional info: Rule out ascites TECHNIQUE: Imaging protocol: US abdomen. Real time ultrasound with image documentation. Limited exam focused on the region of c linical interest. COMPARISON: No relevant prior studies available. FINDINGS: Intraperitoneal space: No evidence of a scites in the submitted images. IMPRESSION: No evidence of ascites in the submitted images. THIS DOCUMENT HAS BEEN ELECTRONICALLY S IGNED BY MELI CLINTON MD Procedure Note Interface, Received Via [employer] System - 03/06/2020 11:38 PM EST PROCEDURE INFORMATION: Exam: US Abdomen; Limited Exam date and time: 03/06/2020 11:20 PM Age: 64 years old Clinical indication: Other: Hepatic encephalopathy; Additional info: Rule out ascites TECHNIQUE: Imaging protocol: US abdomen. Real time ultrasound with image documentation. Limited exam focused on the region of clinical interest. COMPARISON: No relevant prior studies available. FINDINGS: Intraperitoneal space: No evidence of ascites in the submitted images. IMPRESSION: No evidence of ascites in the submitted images. THIS DOCUMENT HAS BEEN ELECTRONICALLY SIGNED BY MELI CLINTON MD Performing Organization Address [facility]/Count Includes [facility] one Number [facility] RADIOLOGY [address] [place] [address] * CK (03/06/2020 10:57 PM EST) CK 16,166 (H)Comment: Confirmed 20 - 200 U/L [facility] CLINICAL PATHOLOGY Specimen Plasma Performing Organization Address [facility]/Count Includes [facility] one Number [facility] CLINICAL [address] [place], [place] [address] PATHOLOGY * Protime-INR (03/06/2020 10:57 PM EST) PT Patient 45.6 (H) 12.5 - 14.9 s [facility] Med Univ Clin Pathology Int'l 4.72Comment: Routine intensity [facility] pstate Normalized oral anticoagulation INR is Med Univ Clin Ratio typically 2.0-3.0. Target INR Patholo gy must be clinically individualized. Specimen Plasma Performing Organization Address [facility]/Count Includes [facility] one Number [facility] CLINICAL [address] [place], [place] [address] PATHOLOGY [facility] [address] [place], [place] [address] Clin Pathology * COVID-19 PCR (03/06/2020 10:57 PM EST) Specimen Nasopharyngeal Swab [facility] Description CLINICAL PATHOLOGY SARS CoV-2 SARS-COV-2 (A) 2019 nCoV Real-Time [facility] Upsta te Comment: RT-PCR: NOT DETECTED [facility] Called to and read back by Pathology MARY GRACE FRENCH RN,ON 6B 03/07/20 0957 BY MS Assay performed Test performed using [employer] [facility] sebastian COVID-19 MDx Assay. This test [facility] is only for use under Food and Pathology Drug Administration's Emergency Use Authorization. Additional information is available on the following FDA websites for healthcare providers and patients. https://www.fda.gov/media/7827 /download, https://www.fda.gov/media/7435 21/download First COVID-19 NO [facility] Test? CLINICAL PATHOLOGY Employed in NO [facility] CLINICAL setting? PATHOLOGY Symptomatic for NO [facility] COVID-19 as CLINICAL defined by CDC? PATHOLOGY Date of symptom UNKNOWN [facility] onset? CLINICAL ([id number]) PATHOLOGY Hospitalized NO [facility] for COVID-19? CLINICAL PATHOLOGY Admitted to ICU UNKNOWN [facility] for COVID-19? CLINICAL PATHOLOGY Resident in a UNKNOWN [facility] CLINICAL ([facility]) care PATHOLOGY setting? ? UNKNOWN [facility] CLINICAL PATHOLOGY Specimen Nasopharyngeal Swab Performing Organization Address [facility] Ph one Number [facility] CLINICAL [address] [place], [place] [address] PATHOLOGY [facility] [address] [place], [place] [address] Clin Pathology * Hepatic Function Panel (03/06/2020 10:57 PM EST) Albumin 1.9 (L) 3.5 - 5.2 g/dL [facility] CLINICAL PATHOLOGY Bilirubin, 1.6 (H) <1.2 mg/dL [facility] Total CLINICAL PATHOLOGY Bilirubin, 0.5 (H) <0.3 mg/dL [facility] Direct CLINICAL PATHOLOGY Alkaline 88 40 - 129 U/L [facility] Phosphatase CLINICAL PATHOLOGY AST/SGO 897 (H)Comment: Confirmed <40 U/L [facility] CLINICAL PATHOLOGY ALT/SGP 506 (H) <41 U/L [facility] CLINICAL PATHOLOGY Total Protein 5.4 (L) 6.4 - 8.3 g/dL [facility] CLINICAL PATHOLOGY Specimen Plasma Performing Organization Address [facility] Ph one Number [facility] CLINICAL [address] [place], [place] [address] PATHOLOGY * CBC and Differential (03/06/2020 10:57 PM EST) White Blood 6.9 4 - 10 10*3/uL [facility] Cell [facility] Clin Pathology Red Blood Cell 3.39 (L) 4.6 - 6.1 10*6/uL [facility] Clin Pathology Hemoglobin 11.6 (L) 13.5 - 18 g/dL [facility] Clin Pathology Hematocrit 34.0 (L) 41 - 53 % [facility] Clin Pathology Mean Cell 100.4 (H) 80 - 96 fL [facility] Volume [facility] Clin Pathology Mean Cell 34.1 (H) 27 - 33 pg [facility] Hemoglobin [facility] Clin Pathology Mean Cell Hgb 34.0 32.0 - 36.0 g/dL [facility] Con[facility] Clin Pathology Red Cell Dist 16.4 (H) 11.5 - 14.5 % [facility] Width Counts Include 234 [facility] Clin Pathology Platelet Count 79 (L) 150 - 400 10*3/uL [facility] Pathology Differential Automated Diff [facility] Type Counts Include [facility] Clin Pathology Neutrophil 65 % [facility] Clin Pathology Lymphocyte 16 % [facility] Clin Pathology Monocyte 14 % [facility] Clin Pathology Eosinophil 4 % [facility] Clin Pathology Basophil 1 % [facility] Clin Pathology Abs Neutrophil 4.44 1.8 - 7.0 10*3/uL [facility] Clin Pathology Abs Lymphocyte 1.09 (L) 1.2 - 4.0 10*3/uL [facility] Pathology Abs Monocyte 0.94 (H) 0 - 0.8 10*3/uL [facility] Pathology Abs Eosinophil 0.30 0 - 0.5 10*3/uL [facility] Clin Pathology Abs Basophil 0.08 0 - 0.2 10*3/uL [facility] Pathology Nucleated Red 0 0 - 0 /100{WBCs} [facility] Blood Cells [facility] Pathology Specimen EDTA Whole Blood Performing Organization Address City/[facility] Ph one Number [facility] CLINICAL [address] [place], [place] [address] [address] Clin Pathology * Basic Metabolic Panel (03/06/2020 10:57 PM EST) Bicarbonate 20 (L) 22 - 29 mmol/L [facility] PATHOLOGY Chloride 103 98 - 107 mmol/L [facility] PATHOLOGY Creatinine 0.77 0.70 - 1.20 mg/dL [facility] PATHOLOGY Glucose 317 (H) 70 - 140 mg/dL [facility] PATHOLOGY Potassium 4.9Comment: Hemolyzed 3.4 - 5.1 mmol/L [facility] CLINICAL PATHOLOGY Sodium 133 (L) 136 - 145 mmol/L [facility] PATHOLOGY Blood Urea 13 8 - 23 mg/dL [facility] Nitrogen CLINICAL PATHOLOGY Anion Gap 9 8 - 15 mmol/L [facility] PATHOLOGY Osmolality, Temo 288 275 - 300 mosm/[facility] BUN/Cre Ratio 17 [facility] PATHOLOGY Calcium 7.8 (L) 8.8 - 10.2 mg/dL [facility] CLINICAL PATHOLOGY GFR Non >90 >60 mL/min/1.73m2 [facility] [place] [facility] CL[facility] CDK-EPI PATHOLOGY GFR >90 >60 mL/min/1.73m2 [facility] [place] 2008 CLINICAL CKD-EPI PATHOLOGY Specimen Plasma Performing Organization Address [facility]/Count Includes [facility] one Number [facility] CLINICAL [address] [place], [place] [address] PATHOLOGY * Hepatitis C RNA, quantitative, PCR (03/06/2020 10:44 PM EST) [facility] Hepatitis C HCV Not Detected IU/mL [facility] an Quant HCV Log 10 Testing not performed [facility] Test Comment [facility] Information Comment: (NOTE) The quantitative range of this assay is 15 IU/mL to 100 million IU/mL. Performed At: RN [address] [id number] Nikita Bee MD Ph:[phone] Specimen Serum Performing Organization Address [facility]/Count Includes [facility] one Number [facility] CLINICAL [address] [place], [place] [address] [phone] * Hepatitis C antibody (03/06/2020 10:44 PM EST) [facility] Hepatitis C Ab Reactive (A)Comment: Past or Non Reactive [facility] current Hepatitis C infection. CLINICAL Specimen forwarded to PATHOLOGY reference laboratory for quantitative HCV RNA testing. Specimen Serum Performing Organization Address [facility]/Count Includes [facility] one Number [facility] CLINICAL [address] [place], [place] [address] PATHOLOGY * POCT glucose, docked (03/06/2020 9:26 PM EST) [facility] POC Glucose 293 (H) 70 - 140 mg/dL [facility] POC Specimen Whole Blood Performing Organization Address [facility]/Count Includes [facility] one Number POINT OF CARE TEST [address] [place] [address] [facility] POC [address] [place] [address] documented in this encounter Visit Diagnoses Diagnosis Decompensated hepatic cirrhosis - Prima ry Hepatic encephalopathy Type 2 diabetes mellitus, with long-ter m current use of insulin Alcoholic cirrhosis of liver without as cites Alcoholic cirrhosis of liver Chronic hepatitis C without hepatic com a CAD (coronary artery disease) Coronary atherosclerosis of unspecified type of vessel, [place] or graft Essential hypertension Unspecified essential hypertension Falls frequently Personal history of fall Coagulopathy Other and unspecified coagulation defec ts Non-traumatic rhabdomyolysis Thrombocytopenia Thrombocytopenia, unspecified Macrocytic anemia Unspecified deficiency anemia Transaminitis Nonspecific elevation of levels of antonio saminase or lactic acid dehydrogenase (LDH) Edema due to hypoalbuminemia Hyperglycemia due to diabetes mellitus Heart murmur, systolic Undiagnosed cardiac murmurs Metabolic acidosis Acidosis documented in this encounter Administered Medications Action Date Dose Rate Site Medication Order MAR Action 03/09/2020 9:14 PM EST 650 mg acetaminophen (TYLENOL) tablet 650 mg Given 650 mg, Oral, Every 6 hours PRN, Mild Pain (Pain Scale Score 1-3), Starting 03/07/20 at 1100, For 5 days 9 hours, Maximum daily dose of acetaminophen is 2,000 mg from all sources in 24 hours., 650 mg Given 03/09/2020 4:33 AM EST 03/07/2020 9:34 AM EST capsaicin (CAPZASIN HP) 0.1 % topical Given cream Topical, Three Times Daily Standard, First dose on 03/07/20 at 0900, For 3 0 days, Apply to back, legs and shoulders , 03/10/2020 9:09 AM EST 100 mg docusate sodium (COLACE) capsule 100 mg Given 100 mg, Oral, 2 Times Daily, First dose on Sun03/07/20 at 0900, For 30 days 100 mg Given 03/09/2020 9:13 PM EST 100 mg Given 03/09/2020 8:32 AM EST 03/10/2020 9:08 AM EST 40 mg furosemide (LASIX) tablet 40 mg Given 40 mg, Oral, Daily Standard, First dos e on Sun03/09/20 at 0900, For 30 days 40 mg Given 03/09/2020 8:31 AM EST 03/09/2020 9:14 PM EST 28 Units insulin glargine (LANTUS) injection 28 Given Units 28 Units, Subcutaneous, Nightly, First dose (after last modification) on Sun03/09/20 at 2200, For 27 doses, For blood glucose less than 70 mg/dL: follow hypoglycemia protocol (CM H-) and notify provider. For blood glucose values between 70 mg/dL and 100 mg/dL a t bedtime: provide snack (15 grams of carbohydrates) with some protein. Administer FULL DOSE of insulin glargin e (LANTUS) after snack. Record snack in I&O's. For blood glucose more than 40 0 mg/dL: notify provider, 03/10/2020 1:47 PM EST 6 Units insulin lispro (HumaLOG) injection Given MEDIUM DOSE EATING INSULIN patients 1-1 6 Units 1-16 Units, Subcutaneous, Three Times Daily-With Meals, First dose on Sun03/07/20 at 0800, For 30 days, Nursing MUST open the 'SQ Insulin Dosing Charts ' Sidebar Report, or, the Patient Summary or Summary Report within the ED. , 5 Units Given 03/10/2020 9:07 AM EST 10 Units Given 03/09/2020 6:44 PM EST 03/10/2020 9:08 AM EST 5 mg lisinopril (PRINIVIL,ZESTRIL) tablet 5 Given mg 5 mg, Oral, Daily Standard, First dose on 03/07/20 at 0900, For 30 days 5 mg Given 03/09/2020 8:31 AM EST 5 mg Given 03/08/2020 9:03 AM EST 03/10/2020 9:09 AM EST 12.5 mg metoprolol (LOPRESSOR) split tablet 12.5 Given mg 12.5 mg, Oral, Daily Standard, First dose (after last modification) on 03/07/20 at 0900, For 30 days 12.5 mg Given 03/09/2020 8:37 AM EST 12.5 mg Given 03/08/2020 9:02 AM EST 03/09/2020 11:35 PM EST 4 mg ondansetron (ZOFRAN) injection 4 mg New Bag 4 mg, Intravenous, Every 8 hours PRN, Nausea, Vomiting, Starting 03/06/20 a t 2157, For 30 days 4 mg New Bag 03/08/2020 10:52 AM EST 4 mg Given by IV push 03/07/2020 7:36 PM EST 03/10/2020 9:27 AM EST 5 mg oxyCODONE (ROXICODONE) immediate release Given tablet 5 mg 5 mg, Oral, Every 4 hours PRN, Moderate Pain (Pain Scale Score 4-6), moderate/severe pain, Starting Sun03/06/20 at 2156, For 5 days 22 hours, Every 4-6 hours PRN, Oxycodone immediat e release is limited to 10 mg per dose. Higher doses ( only) require Pain Service consultation and approval., 5 mg Given 03/10/2020 3:09 AM EST 5 mg Given 03/09/2020 6:44 PM EST 03/10/2020 9:09 AM EST 550 mg rifAXIMin (XIFAXAN) tablet 550 mg Given 550 mg, Oral, 2 Times Daily, First dose on Sun03/07/20 at 0900, For 30 days 550 mg Given 03/09/2020 9:14 PM EST 550 mg Given 03/09/2020 8:31 AM EST 03/10/2020 9:09 AM EST 100 mg spironolactone (ALDACTONE) tablet 100 mg Given 100 mg, Oral, Daily Standard, First dose on Sun03/09/20 at 0900, For 30 days 100 mg Given 03/09/2020 8:31 AM EST 03/10/2020 9:09 AM EST 100 mg thiamine (B-1) tablet 100 mg Given 100 mg, Oral, Daily Standard, First dose on Sun03/07/20 at 0900, For 30 days 100 mg Given 03/09/2020 8:31 AM EST 100 mg Given 03/08/2020 9:03 AM EST Action Date Dose Rate Site Medication Order MAR Action 03/07/2020 1:08 AM EST 650 mg acetaminophen (TYLENOL) tablet 650 mg Given 650 mg, Oral, Every 4 hours PRN, Mild Pain (Pain Scale Score 1-3), Starting [facility] 03/06/20 at 2151, For 30 days, Maximu m daily dose of acetaminophen is 3,000 mg from all sources in 24 hours., 03/07/2020 3:08 AM EST 2 g 100 mL/hr cefTRIAXone (ROCEPHIN) IVPB (premix) 2 g New Bag 2 g, Intravenous, at 100 mL/hr, Every 2 4 hours, First dose (after last modification) on Sun03/06/20 at 2315, Fo r 1 dose, Discouraged Uses: Empiric treatment of post-surgical meningitis (ceftazidime preferred), 03/08/2020 9:03 AM EST 40 mg enoxaparin sodium (LOVENOX) injection 40 Given mg 40 mg, Subcutaneous, Daily Standard, First dose on Sun03/07/20 at 0900, For 3 0 days, Non Patients: body weigh t < 150 kg, CrCl > 30 mL/min. Guidelines for Lovenox: MUST wait 24 hours before starting Enoxaparin if patient has epidural catheter. D/C Enoxaparin 10-12 hours prior to removing epidural catheter. May restart Enoxaparin 24 hours after epidural catheter has been removed., 40 mg Given 03/07/2020 9:25 AM EST 03/06/2020 11:03 PM EST 20 mg furosemide (LASIX) injection 20 mg New Bag 20 mg, Intravenous, Once, 03/06/20 at 2200, For 1 dose, Notify provider if systolic blood pressure less than: 100 03/08/2020 6:51 AM EST 40 mg furosemide (LASIX) injection 40 mg Given by IV 40 mg, Intravenous, Once, 03/08/20 at push 0545, For 1 dose, Notify provider if systolic blood pressure less than: 90 03/07/2020 9:36 PM EST 10 Units insulin glargine (LANTUS) injection 10 Given Units 10 Units, Subcutaneous, Nightly, First dose on 03/06/20 at 2200, For 30 days , For blood glucose less than 70 mg/dL: follow hypoglycemia protocol ( H-09) and notify provider. For blood glucose values between 70 mg/dL and 100 mg/dL a t bedtime: provide snack (15 grams of carbohydrates) with some protein. Administer FULL DOSE of insulin glargin e (LANTUS) after snack. Record snack in I&O's. For blood glucose more than 40 0 mg/dL: notify provider, 10 Units Given 03/06/2020 11:02 PM EST 03/08/2020 9:50 PM EST 24 Units insulin glargine (LANTUS) injection 24 Given Units 24 Units, Subcutaneous, Nightly, First dose (after last modification) on 03/08/20 at 2200, For 28 doses, For blood glucose less than 70 mg/dL: follow hypoglycemia protocol ( H-09) and notify provider. For blood glucose values between 70 mg/dL and 100 mg/dL a t bedtime: provide snack (15 grams of carbohydrates) with some protein. Administer FULL DOSE of insulin glargin e (LANTUS) after snack. Record snack in I&O's. For blood glucose more than 40 0 mg/dL: notify provider, 03/08/2020 2:51 PM EST 30 mLs lactulose (CHRONULAC) solution 30 mL Given 30 mL, Oral, Every 6 hours, First dos e (after last reorder) on 03/08/20 at 1345, For 1 dose, Titrate to 3-4 bowel movements per day, 03/07/2020 9:22 AM EST 40 mLs lactulose (CHRONULAC) solution 40 mL Given 40 mL, Oral, Three Times Daily Standard, First dose (after last modification) on 03/06/20 at 2300, Fo r 30 days, Titrate to 3-4 bowel movements per day, 40 mLs Given 03/07/2020 1:08 AM EST 03/07/2020 1:06 AM EST 100 mL/hr NaCl infusion 0.9 % New Bag at 100 mL/hr, Intravenous, Continuous, Starting 03/06/20 at 2200, For 24 hours 03/08/2020 4:06 AM EST 100 mL/hr NaCl infusion 0.9 % New Bag at 100 mL/hr, Intravenous, Continuous, Starting 03/07/20 at 0900, For 24 hours 100 mL/hr New Bag 03/07/2020 9:41 PM EST 100 mL/hr New Bag 03/07/2020 11:31 AM EST documented in this encounter Additional Health Concerns Last Indicated Resolved Time Infection Onset Date 03/06/2020 COVID-19 03/06/2020 documented as of this encounter
--- OUTSIDE RECORDS SUMMARY | 2020-04-01 15:52 | CCD ---
Author Author [facility] Organization [facility] Address Unknown Phone Unavailable Care Team Providers Care Candy Polisher Name Role Phone Corby WEBB MD Unavailable Unavailable Corby WEBB MD Unavailable Unavailable JADA Youssef MD Unavailable Unavailable JADA Youssef MD Unavailable Unavailable JADA Youssef MD Unavailable Unavailable JADA Youssef MD Unavailable Unavailable JADA Youssef MD Unavailable Unavailable JADA Youssef MD Unavailable Unavailable Jared WATTS MD Unavailable Unavailable Jared WATTS MD Unavailable Unavailable Jared WATTS MD Unavailable Unavailable Jared WATTS MD Unavailable Unavailable Jared WATTS MD Unavailable Unavailable Pee STEWART MD Unavailable Unavailable Pee STEWART MD Unavailable Unavailable Pee STEWART MD Unavailable Unavailable Pee STEWART MD Unavailable Unavailable Pee STEWART MD Unavailable Unavailable Pee STEWART MD Unavailable Unavailable Pee STEWART MD Unavailable Unavailable Pee STEWART MD Unavailable Unavailable Pee STEWART MD Unavailable Unavailable Pee STEWART MD Unavailable Unavailable Pee STEWART MD Unavailable Unavailable Pee STEWART MD Unavailable Unavailable Pee STEWART MD Unavailable Unavailable Pee STEWART MD Unavailable Unavailable Pee STEWART MD Unavailable Unavailable Pee STEWART MD Unavailable Unavailable Pee STEWART MD Unavailable Unavailable Nay PEREZ MD Unavailable Unavailable Nay PEREZ MD Unavailable Unavailable Nay PEREZ MD Unavailable Unavailable Paras MECREDES JR . Unavailable Unavailable Re-disclosure Warning The records that you are about to access may contain information from federally-assisted alcohol or drug abuse programs. If such information is present, then the following federally mandated warning applies: This information has been disclosed to you from records protected by federal confidentiality rules (42 CFR part 2). The federal rules prohibit you from making any further disclosure of this information unless further disclosure is expressly permitted by the written consent of the person to whom it pertains or as otherwise permitted by 42 CFR part 2. A general authorization for the release of medical or other information is NOT sufficient for this purpose. The Federal rules restrict any use of the information to criminally investigate or prosecute any alcohol or drug abuse patient.The records that you are about to access may contain highly sensitive health information, the redisclosure of which is protected by Article 27-F of the [facility] Public Health law. If you continue you may have access to information: Regarding HIV / AIDS; Provided by facilities licensed or operated by the [facility] Office of Mental Health; or Provided by the [facility] Office for People With Developmental Disabilities. If such information is present, then the following [facility] mandated warning applies: This information has been disclosed to you from confidential records which are protected by state law. State law prohibits you from making any further disclosure of this information without the specific written consent of the person to whom it pertains, or as otherwise permitted by law. Any unauthorized further disclosure in violation of state law may result in a fine or fpc sentence or both. A general authorization for the release of medical or other information is NOT sufficient authorization for further disc losure. Allergies and Adverse Reactions Type Description Substance Reaction Status Data Source(s ) DRUG INGREDI SPIRONOLACTONE SPIRONOLACTONE Other [facility] DRUG INGREDI GABAPENTIN GABAPENTIN N&V [facility] Drug Class EGGS OR EGG-DERIVED PRODUCTS EGGS OR EGG-DERIVED PRODUCTS [facility] Encounters Encounter Providers Location Date Indications Data Source(s ) Inpatient Attender: MOON PEREZ MDAtte nder: SERENITY COBB MDAttender: JOSETTE STEWART MDAttender: ANGELO WATTS MDAttender: DAVID Youssef MDAdmitter: AUDIE HernándezReferrer: DAVID Youssef MDConsultant: JOSETTE STEWART MD [id number] 03/06/2020 12:00:00 AM EST - 03/10/2020 03:51:00 PM EST hepatic encephalopaty, rhabdo, AMS [facility] hepatic encephalopaty, rhabdo, AMS Patient discharged. Outpatient 08/29/2019 05:31:00 AM EDT [facility] Radiology Imaging Outpatient 06/06/2019 11:12:00 AM EDT [facility] Radiology Imaging Outpatient 04/09/2019 10:11:00 AM EST [facility] Radiology Imaging Outpatient 03/30/2019 08:13:00 PM EST [facility] Radiology Imaging Medications Medication Brand Name Start Date Product Form Dose Route Admi nistrative Instructions Pharmacy Instructions Status Indications Reaction Description Data Source(s) Furosemide 40 MG Oral Tablet Furosemide 40 MG Oral Tab let (LASIX) Furosemide 40 MG Oral Tablet (LASIX) 03/11/2020 12:00:00 AM EST 40 mg Oral active Take 1 tablet by mouth daily [facility] Spironolactone 100 MG Oral Tablet Spironolactone 100 M G Oral Tablet (ALDACTONE) Spironolactone 100 MG Oral Tablet (ALDACTONE) 03/11/2020 12:00:00 AM EST 100 mg Oral active Take 1 tablet by mouth d [facility] Insulin Glargine 100 UNT/ML Injectable S olution insulin glargine (LANTUS) injection 28 Units insulin glargine (LANTUS) injection 28 Units 10:00:00 PM EST 28 U Subcutaneous active 28 Units, Subcutaneous, Nightly, First dose (after last modification) on Sun03/09/20 at 2200, For 27 doses
For blood glucose less than 70 mg/dL: follow hypoglycemia protocol (CM -) and notify provider.For blood glucose values between 70 mg/dL and 100 mg/dL at bedtime: provide snack (15 grams of carbohydrates) with some protein. Administer FULL DOSE of insulin glargine (LANTUS) after snack.Record snack in I&O's. For blood glucose more than 400 mg/dL: notify provider
[facility] Medication administered onsite Spironolactone 25 MG Oral Tablet spironolactone (ALDAC TONE) tablet 100 mg spironolactone (ALDACTONE) tablet 100 mg 03/09/2020 09:00:00 AM EST 100 mg Oral active 100 mg, Oral, Daily Standard, First dose on Sun03/09/20 at 0900, For 30 days [facility] Medication administered onsite Furosemide 40 MG Oral Tablet furosemide (LASIX) tablet 40 mg furosemide (LASIX) tablet 40 mg 03/09/2020 09:00:00 AM EST 40 mg Oral activ e 40 mg, Oral, Daily Standard, First dose on Sun03/09/20 at 0900, For 30 days [facility] Medication administered onsite Insulin Glargine 100 UNT/ML Injectable S olution insulin glargine (LANTUS) injection 24 Units insulin glargine (LANTUS) injection 24 Units 10:00:00 PM EST 24 U Subcutaneous aborted 24 Units, Subcutaneous, Nightly, First dose (after last modification) on Sun03/08/20 at 2200, For 28 doses
For blood glucose less than 70 mg/dL: follow hypoglycemia protocol ( ) and notify provider.For blood glucose values between 70 mg/dL and 100 mg/dL at bedtime: provide snack (15 grams of carbohydrates) with some protein. Administer FULL DOSE of insulin glargine (LANTUS) after snack.Record snack in I&O's. For blood glucose more than 400 mg/dL: notify provider
[facility] Medication administered onsite Lactulose 667 MG/ML Oral Solution lactulose (CHRONULAC ) solution 30 mL lactulose (CHRONULAC) solution 30 mL 03/08/2020 01:45:00 PM EST 30 mL Oral completed 30 mL, Oral, Every 6 hours, First dose (after last reorder) on Sun03/08/20 at 1345, For 1 dose
Titrate to 3-4 bowel movements per day
[facility] Medication administered onsite furosemide (LASIX) injection 40 mg [id number] 03/08/2020 05:45:00 AM EST 40 mg Intravenous completed 40 mg, I ntravenous, Once, Sun03/08/20 at 0545, For 1 dose
Notify provider if systolic blood pressure less than: 90 [facility] Medication administered onsite Acetaminophen 325 MG Oral Tablet acetaminophen (TYLENO L) tablet 650 mg acetaminophen (TYLENOL) tablet 650 mg 03/07/2020 11:00:00 AM EST 65 0 mg Oral active 650 mg, Oral, E very 6 hours PRN, Mild Pain (Pain Scale Score 1- 3), Starting 03/07/20 at 1100, For 5 days 9 hours
Maximum daily dose of acetaminophen is 2,000 mg from all sources in 24 hours.
[facility] Medication administered onsite metoprolol (LOPRESSOR) split tablet 12.5 mg [id number] 03/07/2020 09:00:00 AM EST 12.5 mg Oral active 12.5 mg, Oral, Daily Standard, First dose (after last modification) on 03/07/20 at 0900, For 30 days [facility] Medication administered onsite Lisinopril 5 MG Oral Tablet lisinopril (PRINIVIL,ZESTR IL) tablet 5 mg lisinopril (PRINIVIL,ZESTRIL) tablet 5 mg 03/07/2020 09:00:00 AM EST 5 mg Or al active 5 mg, Oral, Daily Standard, Fir st dose on 03/07/20 at 0900, For 30 days [facility] Medication administered onsite Thiamine 100 MG Oral Tablet thiamine (B-1) tablet 100 mg thiamine (B-1) tablet 100 mg 03/07/2020 09:00:00 AM EST 100 mg Oral active 100 mg, Oral, Daily Standard, First dose on 03/07/20 at 0900, For 30 days [facility] Medication administered onsite NaCl infusion 0.9 % [id number] 03/07/2020 09:00:00 AM EST Intravenous aborted at 100 mL/hr, Intrav enous, Continuous, Starting 03/07/20 at 0900, For 24 hours [facility] Medication administered onsite Docusate Sodium 100 MG Oral Capsule docusate sodium (C OLACE) capsule 100 mg docusate sodium (COLACE) capsule 100 mg 03/07/2020 09:00:00 AM EST 100 mg Oral active 100 mg, Oral, 2 Times Daily, First dose on 03/07/20 at 0900, For 30 days [facility] Medication administered onsite rifaximin 550 MG Oral Tablet rifAXIMin (XIFAXAN) table t 550 mg rifAXIMin (XIFAXAN) tablet 550 mg 03/07/2020 09:00:00 AM EST 550 mg Oral active 550 mg, Oral, 2 Times Daily, First dose on 03/07/20 at 0900, For 30 days [facility] Medication administered onsite Capsaicin 1 MG/ML Topical Cream capsaicin (CAPZASIN HP ) 0.1 % topical cream capsaicin (CAPZASIN HP) 0.1 % topical cream 03/07/2020 09:00:00 AM EST Topical active Topical, Three Times Daily Standard, First dose on 03/07/20 at 0900, For 30 days
Apply to back, legs and shoulders
[facility] Medication administered onsite 0.4 ML Enoxaparin sodium 100 MG/ML Prefi lled Syringe enoxaparin sodium (LOVENOX) injection 40 mg enoxaparin sodium (LOVENOX) injection 40 mg 03/07/2020 09:00:00 AM EST 40 mg Subcutaneous aborted 40 mg, Subcutaneous, Daily Standard, First dose on 03/07/20 at 0900, For 30 days
Non Patients: body weight < 150 kg, CrCl > 30 mL/min. Guidelines for Lovenox:MUST wait 24 hours before starting Enoxaparin if patient has epidural catheter.D/C Enoxaparin 10-12 hours prior to removing epidural catheter.May restart Enoxaparin 24 hours after epidural catheter has been removed.
[facility] Medication administered onsite insulin lispro (HumaLOG) injection MEDIU M DOSE EATING INSULIN patients 1-16 Units [id number] 03/07/2020 08:00:00 AM EST U Subcutaneous active 1-16 Units, Subcutaneous, Three Times Daily-With Meals, First dose on 03/07/20 at 0800, For 30 days
Nursing MUST open the 'SQ Insulin Dosing Charts' Sidebar Report, or, the Patient Summary or Summary Report within the ED.
[facility] Medication administered onsite Ceftriaxone 2000 MG Injection cefTRIAXone (ROCEPHIN) I VPB (premix) 2 g cefTRIAXone (ROCEPHIN) IVPB (premix) 2 g 03/06/2020 11:15:00 PM EST 2 g Intravenous completed 2 g, Intraven ous, at 100 mL/hr, Every 24 hours, First dose (after last modification) on 03/06/20 at 2315, For 1 dose
Discouraged Uses: Empiric treatment of post-surgical meningitis (ceftazidime preferred)
[facility] Medication administered onsite Lactulose 667 MG/ML Oral Solution lactulose (CHRONULAC ) solution 40 mL lactulose (CHRONULAC) solution 40 mL 03/06/2020 11:00:00 PM EST 40 mL Oral aborted 40 mL, Oral, Three Times Da lela Standard, First dose (after last modification) on 03/06/20 at 2300, For 30 days
Titrate to 3-4 bowel movements per day
[facility] Medication administered onsite NaCl infusion 0.9 % [id number] 03/06/2020 10:00:00 PM EST Intravenous aborted at 100 mL/hr, Intrav enous, Continuous, Starting 03/06/20 at 2200, For 24 hours [facility] Medication administered onsite furosemide (LASIX) injection 20 mg [id number] 03/06/2020 10:00:00 PM EST 20 mg Intravenous completed 20 mg, I ntravenous, Once, 03/06/20 at 2200, For 1 dose
Notify provider if systolic blood pressure less than: 100 [facility] Medication administered onsite Insulin Glargine 100 UNT/ML Injectable S olution insulin glargine (LANTUS) injection 10 Units insulin glargine (LANTUS) injection 10 Units 10:00:00 PM EST 10 U Subcutaneous aborted 10 Units, Subcutaneous, Nightly, First dose on 03/06/20 at 2200, For 30 days
For blood glucose less than 70 mg/dL: follow hypoglycemia protocol ( ) and notify provider. For blood glucose values between 70 mg/dL and 100 mg/dL at bedtime: provide snack (15 grams of carbohydrates) with some protein. Administer FULL DOSE of insulin glargine (LANTUS) after snack.Record snack in I&O's. For blood glucose more than 400 mg/dL: notify provider
[facility] Medication administered onsite ondansetron (ZOFRAN) injection 4 mg [id number] 03/06/2020 09:57:5 5 PM EST 4 mg Intravenous active 4 mg, In travenous, Every 8 hours PRN, Nausea, Vomiting, Starting 03/06/20 at 2157, For 30 days [facility] Medication administered onsite Oxycodone Hydrochloride 5 MG Oral Tablet oxyCODONE (ROXICODONE) immediate release tablet 5 mg oxyCODONE (ROXICODONE) immediate release tablet 5 mg 03/06/2020 09:56:43 PM EST 5 mg Oral active 5 mg, Oral, Every 4 hours PRN, Moderate Pain (Pain Scale Score 4-6), moderate/severe pain, Starting 03/06/20 at 2156, For 5 days 22 hours
Every 4-6 hours PRN
Oxycodone immediate release is limited to 10 mg per dose. Higher doses ( only) require Pain Service consultation and approval.
[facility] Medication administered onsite dextrose 50 % IV solution 25 mL [id number] 03/06/2020 09:52:[address] 25 mL Intravenous active 25 mL, Intrav enous, PRN, Other, blood glucose <55, Starting 03/06/20 at 2152, For 30 days
Not for midline administration.
[facility] Medication administered onsite Glucagon 1 MG Injection glucagon (human recombinant) ( GLUCAGEN) injection 1 mg glucagon (human recombinant) (GLUCAGEN) injection 1 mg 03/06/2020 09:52:55 PM EST 1 mg Intramuscular active 1 mg, Intramuscular, PRN, for glucose <55 without IV access, Starting 03/06/20 at 2152, For 30 days [facility] Medication administered onsite Glucose 0.417 MG/MG Oral Gel glucose (GLUTOSE) 40 % or al gel 15 g glucose (GLUTOSE) 40 % oral gel 15 g 03/06/2020 09:52:55 PM EST 15 g Oral active 15 g, Oral, PRN, Low blood s ugar, for gluose 55-69 mg/dl and able to take PO, Starting 03/06/20 at 2152, For 30 days [facility] Medication administered onsite Acetaminophen 325 MG Oral Tablet acetaminophen (TYLENO L) tablet 650 mg acetaminophen (TYLENOL) tablet 650 mg 03/06/2020 09:51:12 PM EST 65 0 mg Oral aborted 650 mg, Oral, E very 4 hours PRN, Mild Pain (Pain Scale Score 1- 3), Starting 03/06/20 at 2151, For 30 days
Maximum daily dose of acetaminophen is 3,000 mg from all sources in 24 hours.
[facility] Medication administered onsite Insurance Providers Payer name Policy type / Coverage type Policy ID Covered constitution party ID Covered constitution party's relationship to coffey Policy Coffey Plan Information [employer]UM [place] CCN [id number] SP [id number] B [id number] Self [id number] VA CCN OPTUM [id number] SP [id number] 'S ADMINISTRATION [id number] SP [id number] OPTUM [place] O [id number] S [id number] O [id number] S [id number] S [id number] [facility] [id number] SP [id number] WEST O [id number] S [id number] COMMERCIAL GENERIC [id number] [facility] [id number] COMMERCIAL GENERIC [id number] 'S ADMINISTRATION [id number] SP [id number] Problems, Conditions, and Diagnoses Code Display Name Description Problem Type Effective Dates Data Source(s) hepatic encephalopaty, rhabdo, AMS hepatic encep halopaty, rhabdo, AMS Diagnosis 03/06/2020 07:53:00 PM [facility] Surgeries/Procedures Procedure Description Date Indications Data Source(s) POCT GLUCOSE, DOCKED POCT GLUCOSE, DOCKED Routine 03/10/2020 11:38 AM EST 03/10/2020 11:38:00 AM [facility] POCT GLUCOSE, DOCKED POCT GLUCOSE, DOCKED Routine 03/10/2020 7:50 AM EST 03/10/2020 07:50:00 AM [facility] PROTHROMBIN TIME PROTIME INR Routine 03/10/2020 3:08 AM EST 03/10/2020 03:08:00 AM [facility] CREATINE KINASE TOTAL CK Routine 03/10/2020 3:08 AM EST 03/10/2020 03:08:00 AM [facility] BILIRUBIN DIRECT BILIRUBIN, DIRECT Routine 03/10/2020 3:08 AM EST 03/10/2020 03:08:00 AM [facility] COMPREHENSIVE METABOLIC PANEL COMPREHENSIVE METABOLIC PANEL Rou irina 03/10/2020 3:08 AM EST 03/10/2020 03:08:[address] [facility] GLUCOSE QUANTITATIVE BLOOD XCPT REAGENT STRIP POCT GLUCOSE, DOC NATALIIA Routine 03/09/2020 9:12 PM EST 03/09/2020 09:12:00 PM [facility] GLUCOSE QUANTITATIVE BLOOD XCPT REAGENT STRIP POCT GLUCOSE, DOC NATALIIA Routine 03/09/2020 5:58 PM EST 03/09/2020 05:58:00 PM [facility] GLUCOSE QUANTITATIVE BLOOD XCPT REAGENT STRIP POCT GLUCOSE, DOC KENay Routine 03/09/2020 5:02 PM EST 03/09/2020 05:02:00 PM [facility] GLUCOSE QUANTITATIVE BLOOD XCPT REAGENT STRIP POCT GLUCOSE, MELANIA WILLIAM Routine 03/09/2020 1:00 PM EST 03/09/2020 01:00:00 PM [facility] GLUCOSE QUANTITATIVE BLOOD XCPT REAGENT STRIP POCT GLUCOSE, DOC NATALIIA Routine 03/09/2020 11:36 AM EST 03/09/2020 11:36:00 AM [facility] GLUCOSE QUANTITATIVE BLOOD XCPT REAGENT STRIP POCT GLUCOSE, DOC NATALIIA Routine 03/09/2020 7:49 AM EST 03/09/2020 07:49:00 AM [facility] PROTHROMBIN TIME PROTIME INR Routine 03/09/2020 4:47 AM EST 03/09/2020 04:47:00 AM [facility] BLOOD COUNT COMPLETE AUTOMATED CBC Routine 03/09/2020 4:47 A M EST 03/09/2020 04:47:00 AM [facility] CREATINE KINASE TOTAL CK Routine 03/09/2020 4:47 AM EST 03/09/2020 04:47:00 AM [facility] BILIRUBIN DIRECT BILIRUBIN, DIRECT Routine 03/09/2020 4:47 AM EST 03/09/2020 04:47:00 AM [facility] COMPREHENSIVE METABOLIC PANEL COMPREHENSIVE METABOLIC PANEL Rou irina 03/09/2020 4:47 AM EST 03/09/2020 04:47:[address] [facility] GLUCOSE QUANTITATIVE BLOOD XCPT REAGENT STRIP POCT GLUCOSE, MELANIA WILLIAM Routine 03/08/2020 9:17 PM EST 03/08/2020 09:17:00 PM [facility] GLUCOSE QUANTITATIVE BLOOD XCPT REAGENT STRIP POCT GLUCOSE, DOC KED Routine 03/08/2020 4:40 PM EST 03/08/2020 04:40:00 PM [facility] GLUCOSE QUANTITATIVE BLOOD XCPT REAGENT STRIP POCT GLUCOSE, DOC KED Routine 03/08/2020 11:46 AM EST 03/08/2020 11:46:00 AM [facility] GLUCOSE QUANTITATIVE BLOOD XCPT REAGENT STRIP POCT GLUCOSE, DOC KED Routine 03/08/2020 8:12 AM EST 03/08/2020 08:12:00 AM [facility] NEUTROPHIL CYTO AB COMMENT NEUTROPHIL CYTO AB COMMENT Routine 03/08/2020 7:04 AM EST 03/08/2020 07:04:[address] [facility] MICROSOMAL ANTIBODIES EACH LIVER KIDNEY MICROS IGG Routine 03/08/2020 7:04 AM EST 03/08/2020 07:04:[address] [facility] ACETAMINOPHEN, RANDOM ACETAMINOPHEN, RANDOM Routine 03/08/2020 7 :04 AM EST 03/08/2020 07:04:00 AM [facility] NATRIURETIC PEPTIDE PROBNP Routine 03/08/2020 7:04 AM EST 03/08/2020 07:04:00 AM [facility] FLUORESCENT NONNFCT AGT ANTB TITER EA ANTIBODY NEUTROPHIL C YTOPLASMIC ANTIBODY Routine 03/08/2020 7:04 AM EST 03/08/2020 07:04:00 AM [facility] [id number] TOTAL [id number] Routine 7:04 AM EST 03/08/2020 07:04:00 AM [facility] FLUORESCENT NONNFCT AGT ANTB SCREEN EA ANTIBODY MITOCHONDRI AL ANTIBODIES Routine 03/08/2020 7:04 AM EST 03/08/2020 07:04:00 AM [facility] CERULOPLASMIN CERULOPLASMIN Routine 03/08/2020 7:04 AM EST 03/08/2020 07:04:00 AM [facility] ACUTE HEPATITIS PANEL HEPATITIS PANEL, ACUTE Routine 03/08/2020 7:04 AM EST 03/08/2020 07:04:00 AM [facility] GAMMAGLOBULIN IGA IGD IGG IGM EACH IGG SUBCLASSES Routine 03/08/2020 7:04 AM EST 03/08/2020 07:04:[address] [facility] IADNA HEPATITIS C QUANTIFICATION HEPATITIS C RNA, QUANTITATIVE, PCR Routine 03/08/2020 7:04 AM EST 03/08/2020 07:04:00 AM [facility] FLUORESCENT NONNFCT AGT ANTB SCREEN EA ANTIBODY ANTI-SMOOTH MUSCLE ANTIBODY Routine 03/08/2020 7:04 AM EST 03/08/2020 07:04:00 AM [facility] HEPATITIS B SURF ANTIBODY HBSAB HEPATITIS B SURFACE ANTIBODY Ro utine 03/08/2020 7:04 AM EST 03/08/2020 07:04:[address] [facility] PROTHROMBIN TIME PROTIME INR Routine 03/08/2020 7:04 AM EST 03/08/2020 07:04:00 AM [facility] FIBRIN DGRADJ PRODUCTS D-DIMER QUAL/SEMIQUAN D-DIMER, QUANTITAT PARESH Routine 03/08/2020 7:04 AM EST 03/08/2020 07:04:00 AM [facility] TRANSFERASE ALANINE AMINO ALT SGPT ALT Routine 03/08/2020 7: 04 AM EST 03/08/2020 07:04:00 AM [facility] TRANSFERASE ASPARTATE AMINO AST SGOT AST Routine 03/08/2020 7:04 AM EST 03/08/2020 07:04:00 AM [facility] PROTEIN XCPT REFRACTOMETRY SERUM PLASMA/WHL BLD PROTEIN, TOTAL Routine 03/08/2020 7:04 AM EST 03/08/2020 07:04:00 AM [facility] PHOSPHATASE ALKALINE ALKALINE PHOSPHATASE Routine 03/08/2020 7:04 AM EST 03/08/2020 07:04:00 AM [facility] LACTATE DEHYDROGENASE LDH LACTATE DEHYDROGENASE Routine 03/08/2020 7:04 AM EST 03/08/2020 07:04:[address] [facility] FERRITIN FERRITIN LEVEL Routine 03/08/2020 7:04 AM EST 03/08/2020 07:04:00 AM [facility] BILIRUBIN DIRECT BILIRUBIN, DIRECT Routine 03/08/2020 7:04 AM EST 03/08/2020 07:04:00 AM [facility] BILIRUBIN TOTAL BILIRUBIN, TOTAL Routine 03/08/2020 7:04 AM EST 03/08/2020 07:04:00 AM [facility] SALICYLATE LEVEL SALICYLATE LEVEL Routine 03/08/2020 7:04 AM EST 03/08/2020 07:04:00 AM [facility] RENAL FUNCTION PANEL RENAL FUNCTION PANEL Routine 03/08/2020 7:04 AM EST 03/08/2020 07:04:00 AM [facility] ULTRASOUND ABDOMINAL REAL TIME W/IMAGE LIMITED US ABDOMEN L IMITED [id number] Routine 03/08/2020 6:56 AM EST 03/08/2020 06:56:24 AM [facility] BLOOD COUNT COMPLETE AUTOMATED CBC Routine 03/08/2020 4:03 A M EST 03/08/2020 04:03:00 AM [facility] COMPREHENSIVE METABOLIC PANEL COMPREHENSIVE METABOLIC PANEL Rou irina 03/08/2020 4:03 AM EST 03/08/2020 04:03:[address] [facility] GLUCOSE QUANTITATIVE BLOOD XCPT REAGENT STRIP POCT GLUCOSE, DOC KED Routine 03/07/2020 9:22 PM EST 03/07/2020 09:22:00 PM [facility] GLUCOSE QUANTITATIVE BLOOD XCPT REAGENT STRIP POCT GLUCOSE, DOC KED Routine 03/07/2020 7:13 PM EST 03/07/2020 07:13:00 PM [facility] GLUCOSE QUANTITATIVE BLOOD XCPT REAGENT STRIP POCT GLUCOSE, DOC KED Routine 03/07/2020 5:57 PM EST 03/07/2020 05:57:00 PM [facility] GLUCOSE QUANTITATIVE BLOOD XCPT REAGENT STRIP POCT GLUCOSE, DOC KED Routine 03/07/2020 4:37 PM EST 03/07/2020 04:37:00 PM [facility] GLUCOSE QUANTITATIVE BLOOD XCPT REAGENT STRIP POCT GLUCOSE, DOC KED Routine 03/07/2020 11:43 AM EST 03/07/2020 11:43:00 AM [facility] GLUCOSE QUANTITATIVE BLOOD XCPT REAGENT STRIP POCT GLUCOSE, DOC KED Routine 03/07/2020 8:32 AM EST 03/07/2020 08:32:00 AM [facility] ETHYL ALCOHOL LEVEL ETHYL ALCOHOL LEVEL Routine 03/07/2020 1:45 AM EST 03/07/2020 01:45:00 AM [facility] BLOOD COUNT COMPLETE AUTOMATED CBC Routine 03/07/2020 1:34 A M EST 03/07/2020 01:34:00 AM [facility] CREATINE KINASE TOTAL CK Routine 03/07/2020 1:34 AM EST 03/07/2020 01:34:00 AM [facility] COMPREHENSIVE METABOLIC PANEL COMPREHENSIVE METABOLIC PANEL Rou irina 03/07/2020 1:34 AM EST 03/07/2020 01:34:[address] [facility] URNLS DIP STICK/TABLET REAGENT AUTO MICROSCOPY URINALYSIS W ITH MICROSCOPIC Routine 03/07/2020 1:18 AM EST 03/07/2020 01:18:00 AM [facility] ULTRASOUND ABDOMINAL REAL TIME W/IMAGE LIMITED [place]BDOM[place] LIMIT ED [id number] STAT 03/06/2020 11:31 PM EST 03/06/2020 11:31:17 PM [facility] COVID-19 PCR COVID-19 PCR Routine 03/06/2020 10:57 PM EST 03/06/2020 10:57:00 PM [facility] PROTHROMBIN TIME PROTIME INR STAT 03/06/2020 10:57 PM EST 03/06/2020 10:57:00 PM [facility] BLOOD COUNT COMPLETE AUTO&AUTO DIFRNTL WBC COUNT CBC AND DIFFER ENTIAL Routine 03/06/2020 10:57 PM EST 03/06/2020 10:57:00 PM [facility] CREATINE KINASE TOTAL CK Routine 03/06/2020 10:57 PM EST 03/06/2020 10:57:00 PM [facility] HEPATIC FUNCTION PANEL HEPATIC FUNCTION PANEL A STAT 10:57 PM EST 03/06/2020 10:57:00 PM [facility] BASIC METABOLIC PANEL CALCIUM TOTAL BASIC METABOLIC PANEL STAT 03/06/2020 10:57 PM EST 03/06/2020 10:57:[address] [facility] HEPATITIS C ANTIBODY HEPATITIS C ANTIBODY Routine 03/06/2020 10:44 PM EST 03/06/2020 10:44:00 PM [facility] IADNA HEPATITIS C QUANTIFICATION HEPATITIS C RNA, QUANTITATIVE, PCR Routine 03/06/2020 10:44 PM EST 03/06/2020 10:44:00 PM [facility] GLUCOSE QUANTITATIVE BLOOD XCPT REAGENT STRIP POCT GLUCOSE, DOC KED Routine 03/06/2020 9:26 PM EST 03/06/2020 09:26:00 PM [facility] Results ID Date Data Source [id number] 03/13/2020 12:49:42 PM [facility] Name Value Range Interpretation Code Description Data Maria Antonia rce(s) Supporting Document(s) Discharge Summary [facility] TNGJRu6rMsNZQiIu17/YOMciOKVes9ItZCmlISk6DQzsEGQjP1XiTLO2wW1mNBA3ZLuTQoQwPuErMIH0 lbm [file] AgICAgICAgICAgICAgICAgICAgICAgICAgICAgICAgICAgICAgICAgICAgICAgICAgICAgICAgICAgIC AgICAgICAgICAgICAgICAgICAgICAgICAgICAgICAg CC3ZSHImNSAxWQHaWBYbBXUzUNYhPPGdSTWyWPCbJIBpPSHxUXUgWHReWHKaGWWrWMUuUUSoOMPmFEMh XMZsRIDyYHTiFRJjQKHhJIWtCIFgIJFcXALcSTBzTAJuFPFkQKBeJNWmGC4RLGFmOAVeBVDiQEIbNASg ICAgICAgICAgICAgICAgICAgICAgICAgICAgICAgIC XdTNEjMHQdJELuGQXuOSOyPAIyMKVeTFQgZMVzIDVqKICpAMOhSHZfLEOsJWUcEEXaJGDeGG9JLPRnFG AgICAgICAgICAgICAgICAgICAgICAgICAgICAgICAgICAgICAgICAgICAgICAgICAgICAgICAgICAgIC AgICAgICAgICAgICAgICAgICAgICAgICAgICAgICAg SZLqQA9RGJJoXZAzRSOoRUVrUYGxEWNnVZKnDHZbQRPoXQZbSMOhPDGqVSPgQIJuBUTgEBWvMWUgKPQf VYEmIPQjJVZdTZEgBMIiBXZpPUFrHTSiTEQgLFYpWFYkAFHjZRUyKPXrFHYiEO9CVQPoFTIpTRDiFTEn ICAgICAgICAgICAgICAgICAgICAgICAgICAgICAgIC PnKSKmJEDaMEUeFYGvZSZtHMKtWYQlQQVsLTXhYEJpWQPdMUMwRSEaBSLeTWLmPDAoNMBoXQHbRY3QHM AgICAgICAgICAgICAgICAgICAgICAgICAgICAgICAgICAgICAgICAgICAgICAgICAgICAgICAgICAgIC AgICAgICAgICAgICAgICAgICAgICAgICAgICAgICAg ZFRmIXTiSH0UJZLqBFGlLVQxJTEcKGYuQMWwQUFvOQEqVGPnOUKaCFOtNKYgJWJxIPFeURQyMGJdLNAg GRNwLEDhXUGsJZVyAEHqBWEhYBPlDKRrRCIrEEZlNTPkPQOjOLMwDKPeNYGyASEnGU8NFWSjAPZfOQEr ICAgICAgICAgICAgICAgICAgICAgICAgICAgICAgIC AgICAgICAgICAgICAgICAgICAgICAgICAgICAgICAgICAgICAgICAgICAgICAgICAgICAgICAgICAgIA 0KICAgICAgICAgICAgICAgICAgICAgICAgICAgICAgICAgICAgICAgICAgICAgICAgICAgICAgICAgIC AgICAgICAgICAgICAgICAgICAgICAgICAgICAgICAg YCTjJHYjGXTtDE2CNR61hMVar1N5YUPqSN5sgup/Xu0HRSnpsuAqcSQzFW1MOdAaVJ0uli5VUwPkOT2b ku6JWPgQRkWoG6N2vWNcJOCgGIBQMiKhD77bUDjzNm65GPbsQDOpVhDvNYw0Zz9QByFtQ0pnBCXdYlT1 BPHlSnW1BRMpCtD3XVXmQoZnFFUkXIJxOOWkYINCNL B3AOFnZtRqSBdbRB8Sz7NohNY6SZk+Np0AZP1vz0GyWIwaLXFnJH0bul4KEOjHQtGlP1PeapH7NYJ5EC HgLe4XBDZuPHJlpGPdGXTlYBTZFtUrS7LdaC32FABDOk0+RHzzvuYaJezAEiH7WBKyk7TqXTi8TW1UJT RaFCo6iAVbNBvjO2jwazxmNUQ8aG3egknfDyieUhDu q0guQFAsSoZcUIxaZQ5zXKUpGE77DaSzWvLlSWT8FMEnGQ2uQJndIW1VBBW8QEjbTYUiAUWcN0dBNpVj MSUwUqWpcNrkKK3YFvWhW1FargBvtBVyRRPkCSKJEt3+YKedxkBvOldBNpAgWAZxl4YpZUq4HL3JTNVz QCspJP0VXSFpeX6rEUrwRT8PAcQnIeWtDKHAWnUhD1 5wbGPjHTj1V5UrPhHgCMPrJxonQKWxBXgqTvVdAVAwUsNeRRqqSB2+ID4+VOvmRD3FJOmermHqPVBeXq 8WDPUiOQMjQY7xHXMxPCIqZ4R1nZqbEGYUQfZaT1lengjkDA0zKWGaZ901mNnonbEiKUR0EPQuJn2PGH BnMLK4PRVooMYyCojtSGVNZEdvDY0SgKZqMVM8hT9c FUhzWTOoWOSwG7dHZoKymUnmXB06wRzryhPtvTZfUHr+Rb0FCO7dt6CjNWy8oiEhRIflFTZzNIflICXp XQJjNUMyRJJ9BDB9ZTDZVpBjSNQaCYOjCHcoSXTgIZTain4IOQWqHOCsNHLrIkAmUBPyGRYjBRhiNPNy ACIaJik7AHGgSVVnVC4ZTkAtXYOiTBCtYHqhEISvDI Mpms1LMRFfFEEfXsQ3ZfXdENRfOBXnRQjgVKXdZJVnEcg4FPGcATEcDV2HJeUeQMMkOMxuMtlgOROoHV Ziwd4OCWByQBTmJFF1RfKzRHMyVFXjEFhdDHReQEEnOAXtPRAxWIYrYS8BPoKkHCWuXJWsGmKbSEGcIO Ghah9SORQyIVQsKZItEQEmWDNlJOAgOWnsBRYhLTO1 TaIqKRKmGXEyTU5JVrEyYUMkNQl6RnbfULSjDVZwye5SFAGhSVZvHjj9VBCvEFMzAFKvEBdcMDFzHGT2 EBQ0QEAeOHJzJL6LBmHkZEJhKRmsLxGbMURzJTQysl0HPNQxIAXoNHFePsRvEIExETQkCTijOKAsNRFg YuSfQGDnURYuDN4COiFdFLErUwZ0WQHpBBXeFSHjle 3TJCQbIGHgORT3ElAtXIOjOCEyDMhlVRIwJFHyABY3UKDaAYLxMN3THmFjHLRnNqV9GQGoEJCmJNAjhn 8UXGWuMTGmFuyxZUPxIVIcFVPhNTmcHSQiEXIeGULgGWFlZHIbFH2FVfQsKQJpBdIqZEYaIJEsIIWnsu 8LNJFqPAYfQTQ4FBWaOPOgCXRsSGfsZEZyEXQ9Ori5 LFAvVUJbSO1JNzMuJQApMnR3PlvyVXKkTBRvdd3XTEScCPZsBLDkECQeLQGsIBLsUVqrETRgCAP0FmVv AULsIQKmZX2YKpGvWFZyChF1PrJyQJAoGAMzem2IFQLyXONrPZQ5LBNyUDSbELQeAAwyCLLjFWQqFZe2 QKBpQMSxWJ0STaCdPWMzTnNgGYhaCTMlBLNtjc3PRS ShECMqLBS1YGWvVOQrJUXxDMebJAJqKPIlCEc5SYRcBMDyJK7SPmBiMZPsOgKiJBAaWFOqGLXsgx9PQO XcRAQoSjRaDULeJQUbBJLnTDkqJVIiQDXiLRk1RBDoGTUsUZ8GJeEqJBXaUfJ4EzYiOBBqLTQldp3JpF FpbAfqxj9TYYoNLf8UyRpzVGQmKEeuMi7yoGN5MLZw FBETPi5PgeEoQJJlUDINTFmrAWGuYDI8TsHlPHTlMGdhZVIfMTv3YXDqVkDlIpSpIEQyWFT4GpV4EZi4 V9B2GFNcQZEuJ3UaVlOxOZN9AWS0S6WgOpJ9KlM+IM9yQZd+Zk7Mr7JuinS3kkTbBHnqGgk6OV0NYZGA T0YNCg== ID Date Data Source [id number] 03/10/2020 12:20:35 PM [facility] Name Value Range Interpretation Code Description Data Maria Antonia rce(s) Supporting Document(s) Glucose [Mass/volume] in Capillary blood by Glucometer 191 mg/dL 70- 140 H [facility] ID Date Data Source [id number] 03/10/2020 08:24:44 AM [facility] Name Value Range Interpretation Code Description Data Maria Antonia rce(s) Supporting Document(s) Glucose [Mass/volume] in Capillary blood by Glucometer 140 mg/dL 70- 140 [facility] ID Date Data Source [id number] 03/10/2020 05:13:44 AM [facility] Name Value Range Interpretation Code Description Data Maria Antonia rce(s) Supporting Document(s) Prothrombin time (PT) 25.7 s 12.5-14.9 H [facility] INR in Platelet poor plasma by Coagulation assay 2.29 [facility] Routine intensity oral anticoagulation I NR is typically 2.0-3.0. Target INR must be clinically individualized. ID Date Data Source [id number] 03/10/2020 05:17:59 AM [facility] Value Range Interpretation Code Description Data Maria Antonia rce(s) Supporting Document(s) Bilirubin.direct [Mass/volume] in Serum or Plasma 0.4 mg/dL <0.3 H [facility] ID Date Data Source [id number] 03/10/2020 05:17:59 AM [facility] Value Range Interpretation Code Description Data Maria Antonia rce(s) Supporting Document(s) Albumin [Mass/volume] in Serum or Plasma by Bromocresol green (BCG) dye binding method 1.7 g/[facility] Bil[facility] [Mass/volume] in Serum or Plasma 1.1 mg/dL <1.2 [facility] Calcium [Mass/volume] in Serum or Plasma 7.8 mg/dL 8.8-10.2 L [facility] Chloride [Moles/volume] in Serum or Plasma 104 mmol/L 98-107 [facility] Creatinine [Mass/volume] in Serum or Plasma 0.79 mg/dL 0.70-1.20 [facility] Glucose [Mass/volume] in Serum or Plasma 269 mg/dL 70-140 H [facility] Alkaline phosphatase [Enzymatic activity/volume] in Serum or Plasma 76 U/L 40-129 [facility] Potassium [Moles/volume] in Serum or Plasma 4.0 mmol/L 3.4-5.1 [facility] Protein [Mass/volume] in Serum or Plasma 5.1 g/dL 6.4-8.3 L [facility] Sodium [Moles/volume] in Serum or Plasma 132 mmol/L 136-145 L [facility] Aspartate aminotransferase [Enzymatic activity/volume] in Serum or Plasma 151 U/L <40 H [facility] Urea nitrogen [Mass/volume] in Serum or Plasma 15 mg/dL 8-23 [facility] Osmolality of Serum or Plasma by calculation 284 mosm/kg 275-300 [facility] Creatinine/Urea nitrogen [Mass Ratio] in Serum or Plasma 19 [facility] Bicarbonate [Moles/volume] in Serum 23 mmol/L 22-29 [facility] Alanine aminotransferase [Enzymatic activity/volume] in Seru m or Plasma 262 U/L <41 H [facility] Anion gap 3 in Serum or Plasma 5 mmol/L 8-15 L [facility] Glomerular filtration rate/1.73 sq M pre dicted among non-blacks [Volume Rate/Area] in Serum or Plasma by Creatinine-based formula (MDRD) >6 0 [facility] Glomerular filtration rate/1.73 sq M pre dicted among blacks [Volume Rate/Area] in Serum or Plasma by Creatinine-based formula (MDRD) >60 [facility] ID Date Data Source [id number] 03/10/2020 05:17:59 AM [facility] Value Range Interpretation Code Description Data Maria Antonia rce(s) Supporting Document(s) Creatine kinase [Enzymatic activity/volume] in Serum or Plasma 1 469 U/L 20-200 H [facility] ID Date Data Source [id number] 03/09/2020 09:27:30 PM [facility] Value Range Interpretation Code Description Data Maria Antonia rce(s) Supporting Document(s) Glucose [Mass/volume] in Capillary blood by Glucometer 211 mg/dL 70- 140 H [facility] ID Date Data Source [id number] 03/09/2020 06:39:34 PM [facility] Value Range Interpretation Code Description Data Maria Antonia rce(s) Supporting Document(s) Glucose [Mass/volume] in Capillary blood by Glucometer 273 mg/dL 70- 140 H [facility] ID Date Data Source [id number] 03/09/2020 05:42:11 PM [facility] Value Range Interpretation Code Description Data Maria Antonia rce(s) Supporting Document(s) Glucose [Mass/volume] in Capillary blood by Glucometer 256 mg/dL 70- 140 [facility] ID Date Data Source [id number] 03/09/2020 01:15:52 PM [facility] Value Range Interpretation Code Description Data Maria Antonia rce(s) Supporting Document(s) Glucose [Mass/volume] in Capillary blood by Glucometer 236 mg/dL 70- 140 [facility] ID Date Data Source [id number] 03/09/2020 12:00:29 PM [facility] Value Range Interpretation Code Description Data Maria Antonia rce(s) Supporting Document(s) Glucose [Mass/volume] in Capillary blood by Glucometer 206 mg/dL 70- 140 [facility] ID Date Data Source [id number] 03/09/2020 08:08:29 AM [facility] Value Range Interpretation Code Description Data Maria Antonia rce(s) Supporting Document(s) Glucose [Mass/volume] in Capillary blood by Glucometer 172 mg/dL 70- 140 [facility] ID Date Data Source [id number] 03/09/2020 05:10:42 AM [facility] Value Range Interpretation Code Description Data Maria Antonia rce(s) Supporting Document(s) Leukocytes [#/volume] in Blood by Automated count 5.8 10*3/uL 4-10 [facility] Erythrocytes [#/volume] in Blood by Automated count 3.22 10*6/uL 4.6- 6.1 L [facility] Hemoglobin [Mass/volume] in Blood 11.1 g/dL 13.5-18 L [facility] Hematocrit [Volume Fraction] of Blood by Automated count 32.7 % 4 1-53 [facility] Erythrocyte mean corpuscular volume [Entitic volume] b y Automated count 101.6 fL 80-96 H [facility] Erythrocyte mean corpuscular hemoglobin [Entitic mass] by Automated count 34.3 pg 27-33 [facility] Erythrocyte mean corpuscular hemoglobin concentration [Mass/volume] by Automated count 33.8 g/dL 32.0-36.0 [facility] E[facility]th[facility] distribution width [Ratio] by Automated count 17.3 % 11.5-14.5 [facility] Platelets [#/volume] in Blood by Automated count 97 10*3/uL 150-400 L [facility] ID Date Data Source [id number] 03/09/2020 05:22:54 AM [facility] Value Range Interpretation Code Description Data Maria Antonia rce(s) Supporting Document(s) Prothrombin time (PT) 26.1 s 12.5-14.9 H [facility] INR in Platelet poor plasma by Coagulation assay 2.34 [facility] Routine intensity oral anticoagulation I NR is typically 2.0-3.0. Target INR must be clinically individualized. ID Date Data Source [id number] 03/09/2020 05:34:32 AM [facility] Value Range Interpretation Code Description Data Maria Antonia rce(s) Supporting Document(s) Bilirubin.direct [Mass/volume] in Serum or Plasma 0.5 mg/dL <0.3 H [facility] ID Date Data Source [id number] 03/09/2020 05:34:32 AM [facility] Value Range Interpretation Code Description Data Maria Antonia rce(s) Supporting Document(s) Albumin [Mass/volume] in Serum or Plasma by Bromocresol green (BCG) dye binding method 1.9 g/dL 3.5-5.2 [facility] Bilirubin.total [Mass/volume] in Serum or Plasma 1.6 mg/dL <1.2 H [facility] Calcium [Mass/volume] in Serum or Plasma 7.8 mg/dL 8.8-10.2 L [facility] Chloride [Moles/volume] in Serum or Plasma 107 mmol/L 98-107 [facility] Creatinine [Mass/volume] in Serum or Plasma 0.82 mg/dL 0.70-1.20 [facility] Glucose [Mass/volume] in Serum or Plasma 228 mg/dL 70-140 H [facility] Alkaline phosphatase [Enzymatic activity/volume] in Serum or Plasma 72 U/L 40-129 [facility] Potassium [Moles/volume] in Serum or Plasma 3.7 mmol/L 3.4-5.1 [facility] Protein [Mass/volume] in Serum or Plasma 5.3 g/dL 6.4-8.3 L [facility] Sodium [Moles/volume] in Serum or Plasma 132 mmol/L 136-145 L [facility] Aspartate aminotransferase [Enzymatic activity/volume] in Serum or Plasma 253 U/L <40 H [facility] Urea nitrogen [Mass/volume] in Serum or Plasma 15 mg/dL 8-23 [facility] Osmolality of Serum or Plasma by calculation 283 mosm/kg 275-300 [facility] Creatinine/Urea nitrogen [Mass Ratio] in Serum or Plasma 19 [facility] Bicarbonate [Moles/volume] in Serum 20 mmol/L 22-29 L [facility] Alanine aminotransferase [Enzymatic activity/volume] in Seru m or Plasma 339 U/L <41 H [facility] Anion gap 3 in Serum or Plasma 6 mmol/L 8-15 L [facility] Glomerular filtration rate/1.73 sq M pre dicted among non-blacks [Volume Rate/Area] in Serum or Plasma by Creatinine-based formula (MDRD) >6 0 [facility] Glomerular filtration rate/1.73 sq M pre dicted among blacks [Volume Rate/Area] in Serum or Plasma by Creatinine-based formula (MDRD) >60 [facility] ID Date Data Source [id number] 03/09/2020 05:49:42 AM [facility] Value Range Interpretation Code Description Data Maria Antonia rce(s) Supporting Document(s) Creatine kinase [Enzymatic activity/volume] in Serum or Plasma 3 003 U/L 20-200 H [facility] Confirmed ID Date Data Source [id number] 03/08/2020 09:20:12 PM [facility] Value Range Interpretation Code Description Data Maria Antonia rce(s) Supporting Document(s) Glucose [Mass/volume] in Capillary blood by Glucometer 308 mg/dL 70- 140 H [facility] ID Date Data Source [id number] 03/08/2020 05:13:08 PM [facility] Value Range Interpretation Code Description Data Maria Antonia rce(s) Supporting Document(s) Glucose [Mass/volume] in Capillary blood by Glucometer 236 mg/dL 70- 140 H [facility] ID Date Data Source [id number] 03/08/2020 11:58:35 AM [facility] Value Range Interpretation Code Description Data Maria Antonia rce(s) Supporting Document(s) Glucose [Mass/volume] in Capillary blood by Glucometer 285 mg/dL 70- 140 H [facility] ID Date Data Source [id number] 03/08/2020 08:17:03 AM [facility] Name Value Range Interpretation Code Description Data Maria Antonia rce(s) Supporting Document(s) Glucose [Mass/volume] in Capillary blood by Glucometer 255 mg/dL 70- 140 H [facility] ID Date Data Source [id number] 03/08/2020 08:03:03 AM [facility] Name Value Range Interpretation Code Description Data Maria Antonia rce(s) Supporting Document(s) [facility] IZONHh9pSrBTGfTm63/UKZuaPCUxy3RoWPmsSDo3EAktCIBxW0KnEPP8iZ8pMOB9YGsGJeZjEpCtMYD7 lbm RtFvcXXmJdPKHrHmvUKjNsDSofJksgjZKwKN7NcUF0VWOpH32pGLJqPEZcY8DiQZCuVnU+Lx6RDJZhhC UmYQ3ZYmdG1Y4lF8cVVv3+VneftztxlkVwJHUBt5ctwLI8qIHV5xjdl24PwZFHM2K8AfS4XcvAS9zEPN kAX7mmQwnX8fuBMjYOQ1+/z9mzMM2k53kCwBQqgqD/ e07DxjYYukY//4PBv1jh5of0x+lr0vZdbZgXt1V+U9tfv/Cmr7Z+slQ6m+yym7EQOuHouRkEnxjCQe1P 52Vh9HUE5pEO1iKOZ8o8rsAJ5PU6//H1a9X/zWh40n7cVR3Ue+3Vqu/dc5XVgCy2lt2j6UA1lVPibqAn 56rR4xf13z3zeTtQLcjK/ZmWhxxZKeXDdNHNlNmmiT e8I646s5Tw1JUMoTPc4eqwhAuvaqCE/PicV5eq95/2DWiH1E6tEzsLmnmUo3RKyXWxyrEpy5SszSfEom sfq5OXWb9DtDZtEHmLitI7KhEXedFwDZMt1t9Eq+m+Lov1Wc4S14Zh5NdYI3RW+8NSCB4R02jGHIvdpc bT1NNM7H6/l34029F0bcC22F7UJB+0k247c6D4iPbH [file] KUYsR6Tfl6TPwzZIRZWq6A ID Date Data Source [id number] 03/08/2020 07:46:34 AM [facility] US ABDOMEN LIMITED [id number] RESULTInte rpreted by:Kerri Adhikari, MDPROCEDURE INFORMATION: Exam: US Abdomen, Limited; Right Upper Quadrant Exam date and time: 03/08/2020 5:35 AM Age: 64 years old Clinical indication: Screening exam; Other: Evaluate ruq TECHNIQUE: Imaging protocol: US abdomen. Real time ultrasound with image documentation. Limited exam focused on the right upper quadrant. COMPARISON: US ABDOMEN LIMITED [id number] PORTABLE 03/06/2020 11:29 PM FINDINGS: Liver: The [...] Pancreas largely obscured by bowel gas. 4. Common bile duct difficult to visualize due to motion, may be normal in caliber. THIS DOCUMENT HAS BEEN ELECTRONICALLY SIGNED BY KERRI ADHIKARI MDThis document has been electronically signed by Kerri Adhikari MD on 03/08/2020 7:46 AM Name Value Range Interpretation Code Description Data Maria Antonia rce(s) Supporting Document(s) ID Date Data Source [id number] 03/09/2020 04:07:16 PM [facility] Name Value Range Interpretation Code Description Data Maria Antonia rce(s) Supporting Document(s) Liver kidney microsomal 1 Ab [Units/volume] in Serum 0.0-2 0.0 [facility] (NOTE) Neg ative 0.0 - 20.0 Equivocal 20.1 - 24.9 Positive >24.9LKM type 1 antibodies are detected in patients withautoimmune hepatitis type 2 and in up to 8% ofpatients with chronic HCV infection.Performed At: [facility] [address] [id number] Bee MD Ph:[phone] ID Date Data Source [id number] 03/09/2020 09:05:59 PM [facility] Name Value Range Interpretation Code Description Data Maria Antonia rce(s) Supporting Document(s) IgG [Mass/volume] in Serum or Plasma 1984 mg/dL 603-1613 H [facility] IgG subclass 1 [Mass/volume] in Serum 1143 mg/dL 248-810 H [facility] IgG subclass 2 [Mass/volume] in Serum 316 mg/dL 130-555 [facility] IgG subclass 3 [Mass/volume] in Serum 74 mg/dL 15-102 [facility] IgG subclass 4 [Mass/volume] in Serum 97 mg/dL 2-96 H [facility] (NOTE)Performed At: [facility] [id number] [place], [place] [id number] Coburn MD Ph:[phone] At: [facility] [address] [id number] Bee MD Ph:[phone] ID Date Data Source [id number] 03/09/2020 10:05:41 PM [facility] Name Value Range Interpretation Code Description Data Maria Antonia rce(s) Supporting Document(s) Hepatitis C virus RNA [Units/volume] (vi ral load) in Serum or Plasma by Probe and target amplification method [facility] Hepatitis C virus RNA [log units/volume] (viral load) in Serum or Plasma by Probe and target amplification method [facility] Service [facility] (NOTE)The quantitative range of this ass ay is 15 IU/mL to 100 millionIU/mL.Performed At: [facility] [id number] Bee MD Ph:[phone] ID Date Data Source [id number] 03/08/2020 08:17:03 AM [facility] Value Range Interpretation Code Description Data Maria Antonia rce(s) Supporting Document(s) Hepatitis A virus IgM Ab [Presence] in Serum or Plasma by Im munoassay Non Reactive [facility] No acute infection, susceptible to infec tion. Hepatitis B virus core IgM Ab [Presence] in Serum or Plasma by Immunoassay Non Reactive [facility] IgM antibodies to HBc were not detected, does not exclude the possibility of exposure to HBV. Hepatitis C virus Ab [Presence] in Serum or Plasma by Immuno assay Non Reactive [facility] Past or current Hepatitis C infection. S pecimen forwarded to reference laboratory for quantitative HCV RNA testing. Hepatitis B virus surface Ag [Presence] in Serum or Plasma b y Immunoassay Non Reactive [facility] No active or previous infection. Suscept ible to infection. ID Date Data Source [id number] 03/08/2020 10:30:48 AM [facility] Name Value Range Interpretation Code Description Data Maria Antonia rce(s) Supporting Document(s) Hepatitis B virus surface Ab [Units/volume] in Serum o r Plasma by Immunoassay 18 m[IU]/mL >11.4 [facility] ReactiveImmunity due to hepatitis B immu nization or natural infection. ID Date Data Source [id number] 03/09/2020 01:27:49 PM [facility] Value Range Interpretation Code Description Data Maria Antonia rce(s) Supporting Document(s) Neutrophil cytoplasmic Ab [Presence] in Serum by Immunofluoresce nce Negative [facility] ID Date Data Source [id number] 03/09/2020 02:21:54 PM [facility] Value Range Interpretation Code Description Data Maria Antonia rce(s) Supporting Document(s) Mitochondria Ab [Units/volume] in Serum Negative [facility] ID Date Data Source [id number] 03/09/2020 02:21:54 PM [facility] Value Range Interpretation Code Description Data Maria Antonia rce(s) Supporting Document(s) Actin smooth muscle IgG Ab [Units/volume] in Serum Negativ e [facility] ID Date Data Source [id number] 03/08/2020 07:37:50 AM [facility] Value Range Interpretation Code Description Data Maria Antonia rce(s) Supporting Document(s) Prothrombin time (PT) 30.9 s 12.5-14.9 H [facility] INR in Platelet poor plasma by Coagulation assay 2.89 [facility] Routine intensity oral anticoagulation I NR is typically 2.0-3.0. Target INR must be clinically individualized. ID Date Data Source [id number] 03/08/2020 08:10:23 AM [facility] Value Range Interpretation Code Description Data Maria Antonia rce(s) Supporting Document(s) Acetaminophen [Mass/volume] in Serum or Plasma 10.0-30.0 L [facility] ID Date Data Source [id number] 03/08/2020 08:10:23 AM [facility] Value Range Interpretation Code Description Data Maria Antonia rce(s) Supporting Document(s) Alanine aminotransferase [Enzymatic activity/volume] in Seru m or Plasma 432 U/L <41 H [facility] ID Date Data Source [id number] 03/08/2020 08:10:23 AM [facility] Value Range Interpretation Code Description Data Maria Antonia rce(s) Supporting Document(s) Aspartate aminotransferase [Enzymatic activity/volume] in Serum or Plasma 469 U/L <40 H [facility] ID Date Data Source [id number] 03/08/2020 08:10:23 AM [facility] Value Range Interpretation Code Description Data Maria Antonia rce(s) Supporting Document(s) Alkaline phosphatase [Enzymatic activity/volume] in Serum or Plasma 76 U/L 40-129 [facility] ID Date Data Source [id number] 03/08/2020 08:10:23 AM [facility] Value Range Interpretation Code Description Data Maria Antonia rce(s) Supporting Document(s) Albumin [Mass/volume] in Serum or Plasma by Bromocresol green (BCG) dye binding method 1.9 g/dL [facility] S[facility] [Moles/volume] in Serum or Plasma 130 mmol/L 136-145 L [facility] Potassium [Moles/volume] in Serum or Plasma 4.0 mmol/L 3.4-5.1 [facility] Chloride [Moles/volume] in Serum or Plasma 104 mmol/L 98-107 [facility] Bicarbonate [Moles/volume] in Serum 19 mmol/L 22-29 [facility] Glucose [Mass/volume] in Serum or Plasma 270 mg/dL 70-140 H [facility] Urea nitrogen [Mass/volume] in Serum or Plasma 13 mg/dL 8-23 [facility] Creatinine [Mass/volume] in Serum or Plasma 0.73 mg/dL 0.70-1.20 [facility] Calcium [Mass/volume] in Serum or Plasma 7.9 mg/dL 8.8-10.2 L [facility] Phosphate [Mass/volume] in Serum or Plasma 2.3 mg/dL 2.5-4.5 [facility] Glomerular filtration rate/1.73 sq M pre dicted among non-blacks [Volume Rate/Area] in Serum or Plasma by Creatinine-based formula (MDRD) >6 0 [facility] Glomerular filtration rate/1.73 sq M pre dicted among blacks [Volume Rate/Area] in Serum or Plasma by Creatinine-based formula (MDRD) >60 [facility] ID Date Data Source [id number] 03/08/2020 08:10:23 AM [facility] Value Range Interpretation Code Description Data Maria Antonia rce(s) Supporting Document(s) Bilirubin.total [Mass/volume] in Serum or Plasma 2.2 mg/dL <1.2 H [facility] ID Date Data Source [id number] 03/08/2020 08:10:23 AM [facility] Value Range Interpretation Code Description Data Maria Antonia rce(s) Supporting Document(s) Ferritin [Mass/volume] in Serum or Plasma 170 ng/ml 30-400 [facility] ID Date Data Source [id number] 03/08/2020 08:10:23 AM [facility] Value Range Interpretation Code Description Data Maria Antonia rce(s) Supporting Document(s) Bilirubin.direct [Mass/volume] in Serum or Plasma 0.7 mg/dL <0.3 H [facility] ID Date Data Source [id number] 03/08/2020 08:10:23 AM [facility] Value Range Interpretation Code Description Data Maria Antonia rce(s) Supporting Document(s) Protein [Mass/volume] in Serum or Plasma 5.3 g/dL 6.4-8.3 L [facility] ID Date Data Source [id number] 03/08/2020 08:10:23 AM [facility] Value Range Interpretation Code Description Data Maria Antonia rce(s) Supporting Document(s) Salicylates [Mass/volume] in Serum or Plasma 3.0-30.0 L [facility] ID Date Data Source [id number] 03/08/2020 10:14:48 AM [facility] Value Range Interpretation Code Description Data Maria Antonia rce(s) Supporting Document(s) Alpha 1 antitrypsin [Mass/volume] in Serum or Plasma 110 mg/dl 90-20 0 [facility] ID Date Data Source [id number] 03/08/2020 10:14:48 AM [facility] Value Range Interpretation Code Description Data Maria Antonia rce(s) Supporting Document(s) Ceruloplasmin [Mass/volume] in Serum or Plasma 16 mg/dl 15-30 [facility] ID Date Data Source [id number] 03/08/2020 11:28:28 AM [facility] Value Range Interpretation Code Description Data Maria Antonia rce(s) Supporting Document(s) Natriuretic peptide.B prohormone N-Terminal [Mass/volu me] in Serum or Plasma 805 pg/mL <125 H [facility] ID Date Data Source [id number] 03/08/2020 11:50:41 AM [facility] Name Value Range Interpretation Code Description Data Maria Antonia rce(s) Supporting Document(s) Fibrin D-dimer FEU [Mass/volume] in Platelet poor plas ma by Immunoassay 0.57 ug/mL{FEU} <0.50 H [facility] ID Date Data Source [id number] 03/08/2020 03:01:46 PM [facility] Value Range Interpretation Code Description Data Maria Antonia rce(s) Supporting Document(s) Lactate dehydrogenase [Enzymatic activit y/volume] in Serum or Plasma by Lactate to pyruvate reaction 1330 U/L 122-225 H [facility] Confirmed ID Date Data Source [id number] 03/08/2020 05:17:56 AM [facility] Value Range Interpretation Code Description Data Maria Antonia rce(s) Supporting Document(s) Leukocytes [#/volume] in Blood by Automated count 7.0 10*3/uL 4-10 [facility] Erythrocytes [#/volume] in Blood by Automated count 3.33 10*6/uL 4.6- 6.1 [facility] Hemoglobin [Mass/volume] in Blood 11.4 g/dL 13.5-18 [facility] Hematocrit [Volume Fraction] of Blood by Automated count 33.5 % 4 1-53 [facility] Erythrocyte mean corpuscular volume [Entitic volume] b y Automated count 100.7 fL 80-96 [facility] Erythrocyte mean corpuscular hemoglobin [Entitic mass] by Automated count 34.2 pg 27-33 [facility] Erythrocyte mean corpuscular hemoglobin concentration [Mass/volume] by Automated count 34.0 g/dL 32.0-36.[facility] distribution width [Ratio] by Automated count 16.6 % 11.5-14.5 [facility] Platelets [#/volume] in Blood by Automated count 90 10*3/uL 150-400 [facility] ID Date Data Source [id number] 03/08/2020 05:34:12 AM [facility] Value Range Interpretation Code Description Data Maria Antonia rce(s) Supporting Document(s) Albumin [Mass/volume] in Serum or Plasma by Bromocresol green (BCG) dye binding method 2.0 g/dL 3.5-5.2 [facility] Bilirubin.total [Mass/volume] in Serum or Plasma 2.2 mg/dL <1.2 H [facility] Calcium [Mass/volume] in Serum or Plasma 7.8 mg/dL 8.8-10.2 L [facility] Chloride [Moles/volume] in Serum or Plasma 107 mmol/L 98-107 [facility] Creatinine [Mass/volume] in Serum or Plasma 0.71 mg/dL 0.70-1.20 [facility] Glucose [Mass/volume] in Serum or Plasma 274 mg/dL 70-140 H [facility] Alkaline phosphatase [Enzymatic activity/volume] in Serum or Plasma 80 U/L 40-129 [facility] Potassium [Moles/volume] in Serum or Plasma 4.0 mmol/L 3.4-5.1 [facility] Protein [Mass/volume] in Serum or Plasma 5.2 g/dL 6.4-8.3 L [facility] Sodium [Moles/volume] in Serum or Plasma 133 mmol/L 136-145 L [facility] Aspartate aminotransferase [Enzymatic activity/volume] in Serum or Plasma 501 U/L <40 H [facility] Urea nitrogen [Mass/volume] in Serum or Plasma 14 mg/dL 8-23 [facility] Osmolality of Serum or Plasma by calculation 286 mosm/kg 275-300 [facility] Creatinine/Urea nitrogen [Mass Ratio] in Serum or Plasma 20 [facility] Bicarbonate [Moles/volume] in Serum 19 mmol/L 22-29 L [facility] Alanine aminotransferase [Enzymatic activity/volume] in Seru m or Plasma 441 U/L <41 H [facility] Anion gap 3 in Serum or Plasma 7 mmol/L 8-15 L [facility] Glomerular filtration rate/1.73 sq M pre dicted among non-blacks [Volume Rate/Area] in Serum or Plasma by Creatinine-based formula (MDRD) >6 0 [facility] Glomerular filtration rate/1.73 sq M pre dicted among blacks [Volume Rate/Area] in Serum or Plasma by Creatinine-based formula (MDRD) >60 [facility] ID Date Data Source [id number] 03/07/2020 09:33:42 PM [facility] Value Range Interpretation Code Description Data Maria Antonia rce(s) Supporting Document(s) Glucose [Mass/volume] in Capillary blood by Glucometer 300 mg/dL 70- 140 [facility] ID Date Data Source [id number] 03/07/2020 09:33:42 PM [facility] Value Range Interpretation Code Description Data Maria Antonia rce(s) Supporting Document(s) Glucose [Mass/volume] in Capillary blood by Glucometer 314 mg/dL 70- 140 [facility] ID Date Data Source [id number] 03/07/2020 06:05:04 PM [facility] Value Range Interpretation Code Description Data Maria Antonia rce(s) Supporting Document(s) Glucose [Mass/volume] in Capillary blood by Glucometer 264 mg/dL 70- 140 [facility] ID Date Data Source [id number] 03/07/2020 04:39:38 PM [facility] Value Range Interpretation Code Description Data Maria Antonia rce(s) Supporting Document(s) Glucose [Mass/volume] in Capillary blood by Glucometer 233 mg/dL 70- 140 [facility] ID Date Data Source [id number] 03/07/2020 11:49:44 AM [facility] Value Range Interpretation Code Description Data Maria Antonia rce(s) Supporting Document(s) Glucose [Mass/volume] in Capillary blood by Glucometer 326 mg/dL 70- 140 [facility] ID Date Data Source [id number] 03/07/2020 08:33:10 AM [facility] Value Range Interpretation Code Description Data Maria Antonia rce(s) Supporting Document(s) Glucose [Mass/volume] in Capillary blood by Glucometer 315 mg/dL 70- 140 [facility] ID Date Data Source [id number] 03/07/2020 01:46:37 AM [facility] Value Range Interpretation Code Description Data Maria Antonia rce(s) Supporting Document(s) History and Physical [facility] [id number] [facility] [file] [id number]+CyDSSDi/[facility] [file] [id number] ID Date Data Source [id number] 03/07/2020 03:17:54 AM [facility] Name Value Range Interpretation Code Description Data Maria Antonia rce(s) Supporting Document(s) Ethanol [Mass/volume] in Serum or Plasma Negative [facility] ID Date Data Source [id number] 03/07/2020 02:17:20 AM [facility] Name Value Range Interpretation Code Description Data Maria Antonia rce(s) Supporting Document(s) Leukocytes [#/volume] in Blood by Automated count 6.8 10*3/uL 4-10 [facility] Erythrocytes [#/volume] in Blood by Automated count 3.38 10*6/uL 4.6- 6.1 L [facility] Hemoglobin [Mass/volume] in Blood 11.5 g/dL 13.5-18 L [facility] Hematocrit [Volume Fraction] of Blood by Automated count 33.7 % 4 1-53 L [facility] Erythrocyte mean corpuscular volume [Entitic volume] by Auto mated count 99.8 fL 80-96 H [facility] Erythrocyte mean corpuscular hemoglobin [Entitic mass] by Automated count 34.0 pg 27-33 H [facility] Erythrocyte mean corpuscular hemoglobin concentration [Mass/volume] by Automated count 34.0 g/dL 32.0-36.0 [facility] Erythrocyte distribution width [Ratio] by Automated count 16.3 % 11.5-14.5 H [facility] Platelets [#/volume] in Blood by Automated count 82 10*3/uL 150-400 L [facility] ID Date Data Source [id number] 03/07/2020 02:52:13 AM [facility] Name Value Range Interpretation Code Description Data Maria Antonia rce(s) Supporting Document(s) Albumin [Mass/volume] in Serum or Plasma by Bromocresol green (BCG) dye binding method 1.9 g/dL 3.5-5.2 L [facility] al Bilirubin.total [Mass/volume] in Serum or Plasma 1.8 mg/dL <1.2 H [facility] Calcium [Mass/volume] in Serum or Plasma 7.8 mg/dL 8.8-10.2 [facility] Chloride [Moles/volume] in Serum or Plasma 103 mmol/L 98-107 [facility] Creatinine [Mass/volume] in Serum or Plasma 0.78 mg/dL 0.70-1.20 [facility] Glucose [Mass/volume] in Serum or Plasma 336 mg/dL 70-140 H [facility] Alkaline phosphatase [Enzymatic activity/volume] in Serum or Plasma 85 U/L 40-129 [facility] Potassium [Moles/volume] in Serum or Plasma 4.5 mmol/L 3.4-5.1 [facility] Protein [Mass/volume] in Serum or Plasma 5.3 g/dL 6.4-8.3 [facility] Sodium [Moles/volume] in Serum or Plasma 133 mmol/L 136-145 [facility] Aspartate aminotransferase [Enzymatic activity/volume] in Serum or Plasma 852 U/L <40 H [facility] Confirmed Urea nitrogen [Mass/volume] in Serum or Plasma 14 mg/dL 8-23 [facility] Osmolality of Serum or Plasma by calculation 289 mosm/kg 275-300 [facility] Creatinine/Urea nitrogen [Mass Ratio] in Serum or Plasma 18 [facility] Bicarbonate [Moles/volume] in Serum 22 mmol/L 22-29 [facility] Alanine aminotransferase [Enzymatic activity/volume] in Seru m or Plasma 505 U/L <41 H [facility] Anion gap 3 in Serum or Plasma 9 mmol/L 8-15 [facility] Glomerular filtration rate/1.73 sq M pre dicted among non-blacks [Volume Rate/Area] in Serum or Plasma by Creatinine-based formula (MDRD) >6 0 [facility] Glomerular filtration rate/1.73 sq M pre dicted among blacks [Volume Rate/Area] in Serum or Plasma by Creatinine-based formula (MDRD) >60 [facility] ID Date Data Source [id number] 03/07/2020 10:12:22 AM [facility] Name Value Range Interpretation Code Description Data Maria Antonia rce(s) Supporting Document(s) Creatine kinase [Enzymatic activity/volume] in Serum or Plasma 1 4700 U/L 20-200 H [facility] Confirmed ID Date Data Source [id number] 03/07/2020 05:41:54 AM [facility] Name Value Range Interpretation Code Description Data Maria Antonia rce(s) Supporting Document(s) Color of Urine [facility] Clarity of Urine [facility] Specific gravity of Urine by Refractometry automated 1.005 1.003 -1.030 [facility] pH of Urine by Automated test strip 5.0 5.0-8.0 [facility] Protein [Mass/volume] in Urine by Automated test strip Neg [facility] Glucose [Mass/volume] in Urine by Automated test strip Neg [facility] Ketones [Mass/volume] in Urine by Automated test strip Neg [facility] Bilirubin.total [Presence] in Urine by Automated test strip Negative [facility] Hemoglobin [Presence] in Urine by Automated test strip Neg [facility] A [facility] Leukocyte esterase [Presence] in Urine by Automated test strip Negative [facility] Nitrite [Presence] in Urine by Automated test strip Negati ve [facility] Leukocytes [#/area] in Urine sediment by Automated count 1 /HPF 0 -5 [facility] Erythrocytes [#/area] in Urine sediment by Automated count 6 /HPF 0-3 H [facility] Bacteria [#/area] in Urine sediment by Automated count Non e A [facility] Epithelial cells.squamous [#/area] in Urine sediment by Automate d count None A [facility] Mucus [#/area] in Urine sediment by Microscopy low power field None [facility] [place] [#/area] in Urine sediment by Microscopy high po wer field 2 /[HPF] None [facility] ID Date Data Source [id number] 03/06/2020 11:38:58 PM [facility] US ABDOMEN LIMITED [id number] RESULTInte rpreted by:BRANDON FigueroaPROCEDURE INFORMATION: Exam: US Abdomen; Limited Exam date [...] HAS BEEN ELECTRONICALLY SIGNED BY MELI CLINTON MDThis document has been electronically signed by BRANDON Figueroa on 03/06/2020 11:38 PM Name Value Range Interpretation Code Description Data Maria Antonia rce(s) Supporting Document(s) ID Date Data Source [id number] 03/06/2020 10:57:00 PM EST [facility] Name Value Range Interpretation Code Description Data Maria Antonia rce(s) Supporting Document(s) SARS-CoV-2 RNA [facility] This lab was ordered by [facility] and reported by [facility]. 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 [facility] Patient has symptoms related to condition [facility] When did you start to experience these symptoms [Date and time] [Phen X] [facility] Patient was hospitalized because of this condition [facility] patient was admitted to ICU for condition [facility] Patient resides in a congregate care setting [facility] status [facility] ID Date Data Source [id number] 03/07/2020 12:10:51 AM [facility] Name Value Range Interpretation Code Description Data Maria Antonia rce(s) Supporting Document(s) Bicarbonate [Moles/volume] in Serum 20 mmol/L 22-29 L [facility] Chloride [Moles/volume] in Serum or Plasma 103 mmol/L 98-107 [facility] Creatinine [Mass/volume] in Serum or Plasma 0.77 mg/dL 0.70-1.20 [facility] Glucose [Mass/volume] in Serum or Plasma 317 mg/dL 70-140 H [facility] Potassium [Moles/volume] in Serum or Plasma 4.9 mmol/L 3.4-5.1 [facility] Hemolyzed Sodium [Moles/volume] in Serum or Plasma 133 mmol/L 136-145 L [facility] Urea nitrogen [Mass/volume] in Serum or Plasma 13 mg/dL 8-23 [facility] Anion gap 3 in Serum or Plasma 9 mmol/L 8-15 [facility] Osmolality of Serum or Plasma by calculation 288 mosm/kg 275-300 [facility] Creatinine/Urea nitrogen [Mass Ratio] in Serum or Plasma 17 [facility] Calcium [Mass/volume] in Serum or Plasma 7.8 mg/dL 8.8-10.2 L [facility] Glomerular filtration rate/1.73 sq M pre dicted among non-blacks [Volume Rate/Area] in Serum or Plasma by Creatinine-based formula (MDRD) >6 0 [facility] Glomerular filtration rate/1.73 sq M pre dicted among blacks [Volume Rate/Area] in Serum or Plasma by Creatinine-based formula (MDRD) >60 [facility] ID Date Data Source [id number] 03/07/2020 12:29:32 AM [facility] Name Value Range Interpretation Code Description Data Maria Antonia rce(s) Supporting Document(s) Albumin [Mass/volume] in Serum or Plasma by Bromocresol green (BCG) dye binding method 1.9 g/dL 3.5-5.2 [facility] Bilirubin.total [Mass/volume] in Serum or Plasma 1.6 mg/dL <1.2 H [facility] Bilirubin.direct [Mass/volume] in Serum or Plasma 0.5 mg/dL <0.3 H [facility] Alkaline phosphatase [Enzymatic activity/volume] in Serum or Plasma 88 U/L 40-129 [facility] Aspartate aminotransferase [Enzymatic activity/volume] in Serum or Plasma 897 U/L <40 H [facility] Confirmed Alanine aminotransferase [Enzymatic activity/volume] in Seru m or Plasma 506 U/L <41 H [facility] Protein [Mass/volume] in Serum or Plasma 5.4 g/dL 6.4-8.3 [facility] ID Date Data Source [id number] 03/07/2020 12:29:32 AM [facility] Value Range Interpretation Code Description Data Maria Antonia rce(s) Supporting Document(s) Creatine kinase [Enzymatic activity/volume] in Serum or Plasma 1 6166 U/L 20-200 H [facility] Confirmed ID Date Data Source [id number] 03/06/2020 11:56:27 PM [facility] Value Range Interpretation Code Description Data Maria Antonia rce(s) Supporting Document(s) Prothrombin time (PT) 45.6 s 12.5-14.9 [facility] INR in Platelet poor plasma by Coagulation assay 4.72 [facility] Routine intensity oral anticoagulation I NR is typically 2.0-3.0. Target INR must be clinically individualized. ID Date Data Source [id number] 03/06/2020 11:42:13 PM [facility] Value Range Interpretation Code Description Data Maria Antonia rce(s) Supporting Document(s) Leukocytes [#/volume] in Blood by Automated count 6.9 10*3/uL 4-10 [facility] Erythrocytes [#/volume] in Blood by Automated count 3.39 10*6/uL 4.6- 6.1 [facility] Hemoglobin [Mass/volume] in Blood 11.6 g/dL 13.5-18 [facility] Hematocrit [Volume Fraction] of Blood by Automated count 34.0 % 4 1-53 [facility] Erythrocyte mean corpuscular volume [Entitic volume] b y Automated count 100.4 fL 80-96 [facility] Erythrocyte mean corpuscular hemoglobin [Entitic mass] by Automated count 34.1 pg 27-33 H [facility] Erythrocyte mean corpuscular hemoglobin concentration [Mass/volume] by Automated count 34.0 g/dL 32.0-36.0 [facility] E[facility]th[facility] distribution width [Ratio] by Automated count 16.4 % 11.5-14.5 H [facility] Platelets [#/volume] in Blood by Automated count 79 10*3/uL 150-400 [facility] Differential cell count method - Blood [facility] Neutrophils/100 leukocytes in Blood by Automated count 65 % [facility] Lymphocytes/100 leukocytes in Blood by Automated count 16 % [facility] Monocytes/100 leukocytes in Blood by Automated count 14 % [facility] Eosinophils/100 leukocytes in Blood by Automated count 4 % [facility] Basophils/100 leukocytes in Blood by Automated count 1 % [facility] Neutrophils [#/volume] in Blood by Automated count 4.44 10*3/uL 1.8-7 .0 [facility] Lymphocytes [#/volume] in Blood by Automated count 1.09 10*3/uL 1.2-4 .0 [facility] Monocytes [#/volume] in Blood by Automated count 0.94 10*3/uL 0-0.8 H [facility] Eosinophils [#/volume] in Blood by Automated count 0.30 10*3/uL 0-0.5 [facility] Basophils [#/volume] in Blood by Automated count 0.08 10*3/uL 0-0.2 [facility] Nucleated erythrocytes/100 leukocytes [Ratio] in Blood by Automated count 0 /100{WBCs} 0-0 [facility] ID Date Data Source [id number] 03/07/2020 03:14:13 AM [facility] Name Value Range Interpretation Code Description Data Maria Antonia rce(s) Supporting Document(s) Hepatitis C virus Ab [Presence] in Serum or Plasma by Immuno assay Non Reactive A [facility] Past or current Hepatitis C infection. S juanjoimen forwarded to reference laboratory for quantitative HCV RNA testing. ID Date Data Source [id number] 03/06/2020 09:28:51 PM [facility] Name Value Range Interpretation Code Description Data Maria Antonia rce(s) Supporting Document(s) Glucose [Mass/volume] in Capillary blood by Glucometer 293 mg/dL 70- 140 H [facility] ID Date Data Source [id number] 03/05/2020 02:20:00 PM EST [facility] Name Value Range Interpretation Code Description Data Maria Antonia rce(s) Supporting Document(s) SARS coronavirus 2 RNA [Presence] in Res piratory specimen by ARAM with probe detection [facility] This lab was ordered by [facility] a nd reported by [facility]. Procedure Social History Code Duration Value Status Description Data Source(s ) Alcohol intake 03/06/2020 12:00:00 AM EST Ex-drinker (finding) comp leted Ex- drinker (finding) [facility] Smoking 03/06/2020 12:00:00 AM EST Unknown if ever smoked comp leted Unknown if ever smoked [facility] Vital Signs ID Date Data Source [id number] 03/17/2020 07:53:41 AM [facility] Name Value Range Interpretation Code Description Data Source(s) WEIGHT RECORDED 156 lb 156 lb [facility] Body height Measured 70 in 70 in [facility] WEIGHT RECORDED 154.6 lb 154.6 lb [facility] Body height Measured 70 in 70 in [facility] TRANSFER FROM [facility] Patient Treatment Plan of Care Planned Activity Planned Date Details Description Data Source (s) Spironolactone 100 MG Oral Tablet 03/11/2020 12:00:00 AM [facility] Furosemide 40 MG Oral Tablet 03/11/2020 12:00:00 AM [facility] dextrose 50 % IV solution 25 mL 03/06/2020 09:52:55 PM [facility] Glucagon 1 MG Injection 03/06/2020 09:52:55 PM [facility] Glucose 0.417 MG/MG Oral Gel 03/06/2020 09:52:55 PM [facility]
[2020-04-01] MEDS ORDERED: ASPI81CH33 PO (15:57)
--- NOTE | 2020-04-01 16:18 | REP ---
INDICATION: trauma. COMPARISON: Comparison head CT study 06 March 2020. Is. TECHNIQUE: Helical scanning is acquired. 5 mm axial images were reformatted. Coronal MPR images were generated. FINDINGS: Digital preliminary advertising agency manager radiographs are unremarkable. Bone window settings show no evidence of skull fracture. No bony destructive lesion is seen. No evidence of scalp hematoma is appreciated. On soft tissue window settings, the lateral, 3rd, and 4th ventricles are normal in position and appearance. There is generalized volume loss. There is no evidence of intracranial hemorrhage. No extra-axial fluid collection is seen. No infarct mass or midline shift is observed. IMPRESSION: No skull fracture or intracranial injury. Generalized volume loss again noted. No acute intracranial abnormality.. <Electronically signed by Ezio Jasmine > 04/01/20 [id number]
--- NOTE | 2020-04-01 16:23 | REP ---
INDICATION: fall. COMPARISON: Comparison study November 11, 2019.. TECHNIQUE: Helical scanning is acquired and overlapping 2 mm high resolution axial images were generated and reviewed at bone and soft tissue window settings. Coronal and sagittal multiplanar re-formations images are generated. FINDINGS: There is no evidence of cervical spine element fracture. No skull base fracture is seen. Cervical vertebral body heights are preserved. Alignment is normal. Facet joints are normally aligned bilaterally at each cervical level on multiplanar re-formations images. There is no evidence of intraspinal or paraspinal hematoma. No extra vertebral abnormality is seen. There is moderate degenerative disc disease at C 5 6 is C6-7 and C3-4. There is straightening of the normal cervical lordosis. 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 The degenerative spondylosis changes are stable when compared with the November 11, 2019 prior study. IMPRESSION: Degenerative spondylosis changes stable when compared with the November 11, 2019 prior study. No fracture or traumatic subluxation seen. Otherwise negative.. <Electronically signed by Ezio Jasmine > 04/01/20 [id number]
--- NOTE | 2020-04-01 17:00 | REP ---
INDICATION: fall. COMPARISON: Multiple the latest 03/05/2020 TECHNIQUE: Portable FINDINGS: The technique utilized in obtaining the radiograph has magnified the cardiac silhouette and accentuated the interstitial markings. The superior mediastinal structures are midline. The cardiac silhouette is unremarkable in size, shape, and position. The diaphragmatic surfaces of the lungs are regular, and the costophrenic angles are clear. The pulmonary rob are clear. The imaged osseous structures are intact. IMPRESSION: There is no acute cardiopulmonary disease or significant change from the prior exam. <Electronically signed by Sony Lerma > 04/01/20 [id number]
[2020-04-01 17:16] LABS: BASO # 0.1 10^3/uL (0.0-0.2); BASO % 1.5 % (0.0-1.0); EOS # 0.1 10^3/uL (0.0-0.5); EOS % 1.2 % (0.0-3.0); HEMATOCRIT 36.3 % (42.0-52.0); HEMOGLOBIN 12.1 g/dl (13.5-17.5); LYMPH # 1.1 10^3/uL (1.5-5.0); LYMPH % 23.7 % (24.0-44.0); MEAN CORPUSCULAR HEMOGLOBIN 32.7 pg (27.0-33.0); MEAN CORPUSCULAR HGB CONC 33.3 g/dl (32.0-36.5); MEAN CORPUSCULAR VOLUME 98.1 fl (80.0-96.0); MONO # 0.7 10^3/uL (0.0-0.8); MONO % 14.7 % (0.0-5.0); NEUTROPHILS # 2.8 10^3/uL (1.5-8.5); NEUTROPHILS % 58.5 % (36.0-66.0); WHITE BLOOD COUNT 4.8 10^3/uL (4.0-10.0)
[2020-04-01 17:28] LABS: INR 4.54; PARTIAL THROMBOPLASTIN TIME 50.1 SECONDS (24.2-38.5); PROTHROMBIN TIME 44.1 SECONDS (12.5-14.3)
[2020-04-01 17:54] LABS: ALBUMIN 2.3 GM/DL (3.2-5.2); BILIRUBIN,TOTAL 1.7 MG/DL (0.2-1.0); CALCIUM LEVEL 10.2 MG/DL (8.8-10.2); GLOMERULAR FILTRATION RATE 36.2 (>49); POTASSIUM SERUM 6.8 MEQ/L (3.5-5.1); TOTAL PROTEIN 6.7 GM/DL (6.4-8.2)
[2020-04-01] MEDS ORDERED: HumuLIN R (REGULAR) INSULIN (NovoLIN R) **100U/ML** PER UNIT IV ONE (18:15)
[2020-04-01] MEDS ORDERED: NS 1,000 ML IV ONE (18:15)
[2020-04-01] MEDS ORDERED: CALCIUM GLUCONATE 1,000 MG in D5W MINI-BAG PLUS 100 ML IV ONE (18:15)
--- OUTSIDE RECORDS SUMMARY | 2020-04-01 18:21 | CCD ---
Author Author [facility] Organization [facility] Address Unknown Phone Unavailable Care Team Providers Care Cardroom Plastic Card Grader Name Role Phone Corby WEBB MD Unavailable [...] Unavailable Nay PEREZ MD Unavailable Unavailable Paras MERCEDES JR, JR . Unavailable Unavailable Re-disclosure Warning The [...] is protected by Article 27-F of the [facility] Public Health law. If you continue you may have access to information: Regarding HIV / AIDS; Provided by facilities licensed or operated by the [facility] Office of Mental Health; or Provided by the [facility] Office for People With Developmental Disabilities. If such information is present, then the following [facility] mandated warning applies: This information has [...] law may result in a fine or shelter sentence or both. A general authorization for the release of medical or other information is NOT sufficient authorization for further disc losure. Allergies and Adverse Reactions Type Description Substance Reaction Status Data Source(s ) DRUG INGREDI SPIRONOLACTONE SPIRONOLACTONE Other [facility] DRUG INGREDI GABAPENTIN GABAPENTIN N&V [facility] Drug Class EGGS OR EGG-DERIVED PRODUCTS EGGS OR EGG-DERIVED PRODUCTS [facility] Encounters Encounter Providers Location Date Indications Data Source(s ) Inpatient Attender: MOON PEREZ MDAtte nder: SERENITY COBB MDAttender: JOSETTE STEWART MDAttender: ANGELO WATTS MDAttender: DAVID Youssef MDAdmitter: AUDIE HernándezReferrer: DAVID Youssef MDConsultant: JOSETTE STEWART MD [id number] 03/06/2020 12:00:00 AM EST - 03/10/2020 03:51:00 PM ES T hepatic encephalopaty, rhabdo, AMS [facility] hepatic encephalopaty, rhabdo, AMS Patient discharged. Outpatient 08/29/2019 05:31:00 AM EDT [facility] Outpatient 06/06/2019 11:12:00 AM EDT [facility] Outpatient 04/09/2019 10:11:00 AM EST [facility] Out[facility] 03/30/2019 08:13:00 PM EST [facility] Medications Medication Brand Name Start Date Product Form Dose Route Admi nistrative Instructions Pharmacy Instructions Status Indications Reaction Description Data Source(s) Furosemide 40 MG Oral Tablet Furosemide 40 MG Oral Tab let (LASIX) Furosemide 40 MG Oral Tablet (LASIX) 03/11/2020 12:00:00 AM EST 40 mg Oral active Take 1 tablet by mouth daily [facility] Spironolactone 100 MG Oral Tablet Spironolactone 100 M G Oral Tablet (ALDACTONE) Spironolactone 100 MG Oral Tablet (ALDACTONE) 03/11/2020 12:00:00 AM EST 100 mg Oral active Take 1 tablet by mouth d [facility] Insulin Glargine 100 UNT/ML Injectable S olution insulin glargine (LANTUS) injection 28 Units insulin glargine (LANTUS) injection 28 Units 10:00:00 PM EST 28 U Subcutaneous active 28 Units, Subcutaneous, Nightly, First dose (after last modification) on Sun03/09/20 at 2200, For 27 doses
For blood glucose less than 70 mg/dL: follow hypoglycemia protocol (CM H-09) and notify provider.For blood glucose values between 70 mg/dL and 100 mg/dL at bedtime: provide snack (15 grams of carbohydrates) with some protein. Administer FULL DOSE of insulin glargine (LANTUS) after snack.Record snack in I&O's. For blood glucose more than 400 mg/dL: notify provider
[facility] Medication administered onsite Spironolactone 25 MG Oral Tablet spironolactone (ALDAC TONE) tablet 100 mg spironolactone (ALDACTONE) tablet 100 mg 03/09/2020 09:00:00 AM EST 100 mg Oral active 100 mg, Oral, Daily Standard, First dose on Sun03/09/20 at 0900, For 30 days [facility] Medication administered onsite Furosemide 40 MG Oral Tablet furosemide (LASIX) tablet 40 mg furosemide (LASIX) tablet 40 mg 03/09/2020 09:00:00 AM EST 40 mg Oral activ e 40 mg, Oral, Daily Standard, First dose on Sun03/09/20 at 0900, For 30 days [facility] Medication administered onsite Insulin Glargine 100 UNT/ML [...] glucose more than 400 mg/dL: notify provider
[facility] Medication administered onsite Lactulose 667 MG/ML Oral Solution lactulose (CHRONULAC ) solution 30 mL lactulose (CHRONULAC) solution 30 mL 03/08/2020 01:45:00 PM EST 30 mL Oral completed 30 mL, Oral, Every 6 hours, First dose (after last reorder) on Sun03/08/20 at 1345, For 1 dose
Titrate to 3-4 bowel movements per day
[facility] Medication administered onsite furosemide (LASIX) injection 40 mg [id number] 03/08/2020 05:45:00 AM EST 40 mg Intravenous completed 40 mg, I ntravenous, Once, Sun03/08/20 at 0545, For 1 dose
Notify provider if systolic blood pressure less than: 90 [facility] Medication administered onsite Acetaminophen 325 MG Oral [...] mg from all sources in 24 hours.
[facility] Medication administered onsite metoprolol (LOPRESSOR) split tablet 12.5 mg [id number] 03/07/2020 09:00:00 AM EST 12.5 mg Oral active 12.5 mg, Oral, Daily Standard, First dose (after last modification) on 03/07/20 at 0900, For 30 days [facility] Medication administered onsite Lisinopril 5 MG Oral Tablet lisinopril (PRINIVIL,ZESTR IL) tablet 5 mg lisinopril (PRINIVIL,ZESTRIL) tablet 5 mg 03/07/2020 09:00:00 AM EST 5 mg Or al active 5 mg, Oral, Daily Standard, Fir st dose on 03/07/20 at 0900, For 30 days [facility] Medication administered onsite Thiamine 100 MG Oral Tablet thiamine (B-1) tablet 100 mg thiamine (B-1) tablet 100 mg 03/07/2020 09:00:00 AM EST 100 mg Oral active 100 mg, Oral, Daily Standard, First dose on 03/07/20 at 0900, For 30 days [facility] Medication administered onsite NaCl infusion 0.9 % [id number] 03/07/2020 09:00:00 AM EST Intravenous aborted at 100 mL/hr, Intrav enous, Continuous, Starting 03/07/20 at 0900, For 24 hours [facility] Medication administered onsite Docusate Sodium 100 MG Oral Capsule docusate sodium (C OLACE) capsule 100 mg docusate sodium (COLACE) capsule 100 mg 03/07/2020 09:00:00 AM EST 100 mg Oral active 100 mg, Oral, 2 Times Daily, First dose on 03/07/20 at 0900, For 30 days [facility] Medication administered onsite rifaximin 550 MG Oral Tablet rifAXIMin (XIFAXAN) table t 550 mg rifAXIMin (XIFAXAN) tablet 550 mg 03/07/2020 09:00:00 AM EST 550 mg Oral active 550 mg, Oral, 2 Times Daily, First dose on 03/07/20 at 0900, For 30 days [facility] Medication administered onsite Capsaicin 1 MG/ML Topical Cream capsaicin (CAPZASIN HP ) 0.1 % topical cream capsaicin (CAPZASIN HP) 0.1 % topical cream 03/07/2020 09:00:00 AM EST Topical active Topical, Three Times Daily Standard, First dose on 03/07/20 at 0900, For 30 days
Apply to back, legs and shoulders
[facility] Medication administered onsite 0.4 ML Enoxaparin sodium [...] hours after epidural catheter has been removed.
[facility] Medication administered onsite insulin lispro (HumaLOG) injection MEDIU M DOSE EATING INSULIN patients 1-16 Units [id number] 03/07/2020 08:00:00 AM EST U Subcutaneous active 1-16 Units, Subcutaneous, Three Times Daily-With Meals, First dose on 03/07/20 at 0800, For 30 days
Nursing MUST open the 'SQ Insulin Dosing Charts' Sidebar Report, or, the Patient Summary or Summary Report within the ED.
[facility] Medication administered onsite Ceftriaxone 2000 MG Injection cefTRIAXone (ROCEPHIN) I VPB (premix) 2 g cefTRIAXone (ROCEPHIN) IVPB (premix) 2 g 03/06/2020 11:15:00 PM EST 2 g Intravenous completed 2 g, Intraven ous, at 100 mL/hr, Every 24 hours, First dose (after last modification) on 03/06/20 at 2315, For 1 dose
Discouraged Uses: Empiric treatment of post-surgical meningitis (ceftazidime preferred)
[facility] Medication administered onsite Lactulose 667 MG/ML Oral Solution lactulose (CHRONULAC ) solution 40 mL lactulose (CHRONULAC) solution 40 mL 03/06/2020 11:00:00 PM EST 40 mL Oral aborted 40 mL, Oral, Three Times Da lela Standard, First dose (after last modification) on 03/06/20 at 2300, For 30 days
Titrate to 3-4 bowel movements per day
[facility] Medication administered onsite NaCl infusion 0.9 % [id number] 03/06/2020 10:00:00 PM EST Intravenous aborted at 100 mL/hr, Intrav enous, Continuous, Starting 03/06/20 at 2200, For 24 hours [facility] Medication administered onsite furosemide (LASIX) injection 20 mg [id number] 03/06/2020 10:00:00 PM EST 20 mg Intravenous completed 20 mg, I ntravenous, Once, 03/06/20 at 2200, For 1 dose
Notify provider if systolic blood pressure less than: 100 [facility] Medication administered onsite Insulin Glargine 100 UNT/ML [...] glucose more than 400 mg/dL: notify provider
[facility] Medication administered onsite ondansetron (ZOFRAN) injection 4 mg [id number] 03/06/2020 09:57:5 5 PM EST 4 mg Intravenous active 4 mg, In travenous, Every 8 hours PRN, Nausea, Vomiting, Starting 03/06/20 at 2157, For 30 days [facility] Medication administered onsite Oxycodone Hydrochloride 5 MG [...] only) require Pain Service consultation and approval.
[facility] Medication administered onsite dextrose 50 % IV solution 25 mL [id number] 03/06/2020 09:52:[address] 25 mL Intravenous active 25 mL, Intrav enous, PRN, Other, blood glucose <55, Starting 03/06/20 at 2152, For 30 days
Not for midline administration.
[facility] Medication administered onsite Glucagon 1 MG Injection glucagon (human recombinant) ( GLUCAGEN) injection 1 mg glucagon (human recombinant) (GLUCAGEN) injection 1 mg 03/06/2020 09:52:55 PM EST 1 mg Intramuscular active 1 mg, Intramuscular, PRN, for glucose <55 without IV access, Starting 03/06/20 at 2152, For 30 days [facility] Medication administered onsite Glucose 0.417 MG/MG Oral Gel glucose (GLUTOSE) 40 % or al gel 15 g glucose (GLUTOSE) 40 % oral gel 15 g 03/06/2020 09:52:55 PM EST 15 g Oral active 15 g, Oral, PRN, Low blood s ugar, for gluose 55-69 mg/dl and able to take PO, Starting 03/06/20 at 2152, For 30 days [facility] Medication administered onsite Acetaminophen 325 MG Oral [...] mg from all sources in 24 hours.
[facility] Medication administered onsite Insurance Providers Payer name Policy type / Coverage type Policy ID Covered libertarian ID Covered libertarian's relationship to coffey Policy Coffey Plan Information OPTUM [place] CCN [id number] SP [id number] OTHER B [id number] Self [id number] VA CCN OPTUM [id number] SP [id number] 'S ADMINISTRATION [id number] SP [id number] OPTUM [place] O [id number] S [id number] O [id number] S [id number] WPS [id number]-[id number] [employer] [id number] SP [id number] WEST O [id number] S [id number] COMMERCIAL GENERIC [id number] [facility] 5 [id number] COMMERCIAL GENERIC [id number] 'S ADMINISTRATION [id number] SP [id number] Problems, Conditions, and Diagnoses Code Display Name Description Problem Type Effective Dates Data Source(s) hepatic encephalopaty, rhabdo, AMS hepatic encep halopaty, rhabdo, AMS Diagnosis 03/06/2020 07:53:00 PM [facility] Surgeries/Procedures Procedure Description Date Indications Data Source(s) POCT GLUCOSE, DOCKED POCT GLUCOSE, DOCKED Routine 03/10/2020 11:38 AM EST 03/10/2020 11:38:00 AM [facility] POCT GLUCOSE, DOCKED POCT GLUCOSE, DOCKED Routine 03/10/2020 7:50 AM EST 03/10/2020 07:50:00 AM [facility] PROTHROMBIN TIME PROTIME INR Routine 03/10/2020 3:08 AM EST 03/10/2020 03:08:00 AM [facility] CREATINE KINASE TOTAL CK Routine 03/10/2020 3:08 AM EST 03/10/2020 03:08:00 AM [facility] BILIRUBIN DIRECT BILIRUBIN, DIRECT Routine 03/10/2020 3:08 AM EST 03/10/2020 03:08:00 AM [facility] COMPREHENSIVE METABOLIC PANEL COMPREHENSIVE METABOLIC PANEL Rou irina 03/10/2020 3:08 AM EST 03/10/2020 03:08:[address] [facility] GLUCOSE QUANTITATIVE BLOOD XCPT REAGENT STRIP POCT GLUCOSE, DOC KED Routine 03/09/2020 9:12 PM EST 03/09/2020 09:12:00 PM [facility] GLUCOSE QUANTITATIVE BLOOD XCPT REAGENT STRIP POCT GLUCOSE, DOC KED Routine 03/09/2020 5:58 PM EST 03/09/2020 05:58:00 PM [facility] GLUCOSE QUANTITATIVE BLOOD XCPT REAGENT STRIP POCT GLUCOSE, DOC KED Routine 03/09/2020 5:02 PM EST 03/09/2020 05:02:00 PM [facility] GLUCOSE QUANTITATIVE BLOOD XCPT REAGENT STRIP POCT GLUCOSE, DOC KENay Routine 03/09/2020 1:00 PM EST 03/09/2020 01:00:00 PM [facility] GLUCOSE QUANTITATIVE BLOOD XCPT REAGENT STRIP POCT GLUCOSE, DOC KED Routine 03/09/2020 11:36 AM EST 03/09/2020 11:36:00 AM [facility] GLUCOSE QUANTITATIVE BLOOD XCPT REAGENT STRIP POCT GLUCOSE, DOC KENay Routine 03/09/2020 7:49 AM EST 03/09/2020 07:49:00 AM [facility] PROTHROMBIN TIME PROTIME INR Routine 03/09/2020 4:47 AM EST 03/09/2020 04:47:00 AM [facility] BLOOD COUNT COMPLETE AUTOMATED CBC Routine 03/09/2020 4:47 A M EST 03/09/2020 04:47:00 AM [facility] CREATINE KINASE TOTAL CK Routine 03/09/2020 4:47 AM EST 03/09/2020 04:47:00 AM [facility] BILIRUBIN DIRECT BILIRUBIN, DIRECT Routine 03/09/2020 4:47 AM EST 03/09/2020 04:47:00 AM [facility] COMPREHENSIVE METABOLIC PANEL COMPREHENSIVE METABOLIC PANEL Rou irina 03/09/2020 4:47 AM EST 03/09/2020 04:47:[address] [facility] GLUCOSE QUANTITATIVE BLOOD XCPT REAGENT STRIP POCT GLUCOSE, DOC KED Routine 03/08/2020 9:17 PM EST 03/08/2020 09:17:00 PM [facility] GLUCOSE QUANTITATIVE BLOOD XCPT REAGENT STRIP POCT GLUCOSE, DOC KENay Routine 03/08/2020 4:40 PM EST 03/08/2020 04:40:00 PM [facility] GLUCOSE QUANTITATIVE BLOOD XCPT REAGENT STRIP POCT GLUCOSE, DOC KENay Routine 03/08/2020 11:46 AM EST 03/08/2020 11:46:00 AM [facility] GLUCOSE QUANTITATIVE BLOOD XCPT REAGENT STRIP POCT GLUCOSE, DOC KED Routine 03/08/2020 8:12 AM EST 03/08/2020 08:12:00 AM [facility] NEUTROPHIL CYTO AB COMMENT NEUTROPHIL CYTO AB COMMENT Routine 03/08/2020 7:04 AM EST 03/08/2020 07:04:[address] [facility] MICROSOMAL ANTIBODIES EACH LIVER KIDNEY MICROS IGG Routine 03/08/2020 7:04 AM EST 03/08/2020 07:04:[address] [facility] ACETAMINOPHEN, RANDOM ACETAMINOPHEN, RANDOM Routine 03/08/2020 7 :04 AM EST 03/08/2020 07:04:00 AM [facility] NATRIURETIC PEPTIDE PROBNP Routine 03/08/2020 7:04 AM EST 03/08/2020 07:04:00 AM [facility] FLUORESCENT NONNFCT AGT ANTB TITER EA ANTIBODY NEUTROPHIL C YTOPLASMIC ANTIBODY Routine 03/08/2020 7:04 AM EST 03/08/2020 07:04:00 AM [facility] [id number] TOTAL [id number] Routine 7:04 AM EST 03/08/2020 07:04:00 AM [facility] FLUORESCENT NONNFCT AGT ANTB SCREEN EA ANTIBODY MITOCHONDRI AL ANTIBODIES Routine 03/08/2020 7:04 AM EST 03/08/2020 07:04:00 AM [facility] CERULOPLASMIN CERULOPLASMIN Routine 03/08/2020 7:04 AM EST 03/08/2020 07:04:00 AM [facility] ACUTE HEPATITIS PANEL HEPATITIS PANEL, ACUTE Routine 03/08/2020 7:04 AM EST 03/08/2020 07:04:00 AM [facility] GAMMAGLOBULIN IGA IGD IGG IGM EACH IGG SUBCLASSES Routine 03/08/2020 7:04 AM EST 03/08/2020 07:04:[address] [facility] IADNA HEPATITIS C QUANTIFICATION HEPATITIS C RNA, QUANTITATIVE, PCR Routine 03/08/2020 7:04 AM EST 03/08/2020 07:04:00 AM [facility] FLUORESCENT NONNFCT AGT ANTB SCREEN EA ANTIBODY ANTI-SMOOTH MUSCLE ANTIBODY Routine 03/08/2020 7:04 AM EST 03/08/2020 07:04:00 AM [facility] HEPATITIS B SURF ANTIBODY HBSAB HEPATITIS B SURFACE ANTIBODY Ro utine 03/08/2020 7:04 AM EST 03/08/2020 07:04:[address] [facility] PROTHROMBIN TIME PROTIME INR Routine 03/08/2020 7:04 AM EST 03/08/2020 07:04:00 AM [facility] FIBRIN DGRADJ PRODUCTS D-DIMER QUAL/SEMIQUAN D-DIMER, QUANTITAT PARESH Routine 03/08/2020 7:04 AM EST 03/08/2020 07:04:00 AM [facility] TRANSFERASE ALANINE AMINO ALT SGPT ALT Routine 03/08/2020 7: 04 AM EST 03/08/2020 07:04:00 AM [facility] TRANSFERASE ASPARTATE AMINO AST SGOT AST Routine 03/08/2020 7:04 AM EST 03/08/2020 07:04:00 AM [facility] PROTEIN XCPT REFRACTOMETRY SERUM PLASMA/WHL BLD PROTEIN, TOTAL Routine 03/08/2020 7:04 AM EST 03/08/2020 07:04:00 AM [facility] PHOSPHATASE ALKALINE ALKALINE PHOSPHATASE Routine 03/08/2020 7:04 AM EST 03/08/2020 07:04:00 AM [facility] LACTATE DEHYDROGENASE LDH LACTATE DEHYDROGENASE Routine 03/08/2020 7:04 AM EST 03/08/2020 07:04:[address] [facility] FERRITIN FERRITIN LEVEL Routine 03/08/2020 7:04 AM EST 03/08/2020 07:04:00 AM [facility] BILIRUBIN DIRECT BILIRUBIN, DIRECT Routine 03/08/2020 7:04 AM EST 03/08/2020 07:04:00 AM [facility] BILIRUBIN TOTAL BILIRUBIN, TOTAL Routine 03/08/2020 7:04 AM EST 03/08/2020 07:04:00 AM [facility] SALICYLATE LEVEL SALICYLATE LEVEL Routine 03/08/2020 7:04 AM EST 03/08/2020 07:04:00 AM [facility] RENAL FUNCTION PANEL RENAL FUNCTION PANEL Routine 03/08/2020 7:04 AM EST 03/08/2020 07:04:00 AM [facility] ULTRASOUND ABDOMINAL REAL TIME W/IMAGE LIMITED US ABDOMEN L IMITED [id number] Routine 03/08/2020 6:56 AM EST 03/08/2020 06:56:24 AM [facility] BLOOD COUNT COMPLETE AUTOMATED CBC Routine 03/08/2020 4:03 A M EST 03/08/2020 04:03:00 AM [facility] COMPREHENSIVE METABOLIC PANEL COMPREHENSIVE METABOLIC PANEL Rou irina 03/08/2020 4:03 AM EST 03/08/2020 04:03:[address] [facility] GLUCOSE QUANTITATIVE BLOOD XCPT REAGENT STRIP POCT GLUCOSE, DOC KED Routine 03/07/2020 9:22 PM EST 03/07/2020 09:22:00 PM [facility] GLUCOSE QUANTITATIVE BLOOD XCPT REAGENT STRIP POCT GLUCOSE, DOC KED Routine 03/07/2020 7:13 PM EST 03/07/2020 07:13:00 PM [facility] GLUCOSE QUANTITATIVE BLOOD XCPT REAGENT STRIP POCT GLUCOSE, DOC KED Routine 03/07/2020 5:57 PM EST 03/07/2020 05:57:00 PM [facility] GLUCOSE QUANTITATIVE BLOOD XCPT REAGENT STRIP POCT GLUCOSE, DOC KED Routine 03/07/2020 4:37 PM EST 03/07/2020 04:37:00 PM [facility] GLUCOSE QUANTITATIVE BLOOD XCPT REAGENT STRIP POCT GLUCOSE, DOC KED Routine 03/07/2020 11:43 AM EST 03/07/2020 11:43:00 AM [facility] GLUCOSE QUANTITATIVE BLOOD XCPT REAGENT STRIP POCT GLUCOSE, DOC KED Routine 03/07/2020 8:32 AM EST 03/07/2020 08:32:00 AM [facility] ETHYL ALCOHOL LEVEL ETHYL ALCOHOL LEVEL Routine 03/07/2020 1:45 AM EST 03/07/2020 01:45:00 AM [facility] BLOOD COUNT COMPLETE AUTOMATED CBC Routine 03/07/2020 1:34 A M EST 03/07/2020 01:34:00 AM [facility] CREATINE KINASE TOTAL CK Routine 03/07/2020 1:34 AM EST 03/07/2020 01:34:00 AM [facility] COMPREHENSIVE METABOLIC PANEL COMPREHENSIVE METABOLIC PANEL Rou irina 03/07/2020 1:34 AM EST 03/07/2020 01:34:[address] [facility] URNLS DIP STICK/TABLET REAGENT AUTO MICROSCOPY URINALYSIS W ITH MICROSCOPIC Routine 03/07/2020 1:18 AM EST 03/07/2020 01:18:00 AM [facility] ULTRASOUND ABDOMINAL REAL TIME W/IMAGE LIMITED US ABDOMEN LIMIT ED [id number] STAT 03/06/2020 11:31 PM EST 03/06/2020 11:31:17 PM [facility] COVID-19 PCR COVID-19 PCR Routine 03/06/2020 10:57 PM EST 03/06/2020 10:57:00 PM [facility] PROTHROMBIN TIME PROTIME INR STAT 03/06/2020 10:57 PM EST 03/06/2020 10:57:00 PM [facility] BLOOD COUNT COMPLETE AUTO&AUTO DIFRNTL WBC COUNT CBC AND DIFFER ENTIAL Routine 03/06/2020 10:57 PM EST 03/06/2020 10:57:00 PM [facility] CREATINE KINASE TOTAL CK Routine 03/06/2020 10:57 PM EST 03/06/2020 10:57:00 PM [facility] HEPATIC FUNCTION PANEL HEPATIC FUNCTION PANEL A STAT 10:57 PM EST 03/06/2020 10:57:00 PM [facility] BASIC METABOLIC PANEL CALCIUM TOTAL BASIC METABOLIC PANEL STAT 03/06/2020 10:57 PM EST 03/06/2020 10:57:[address] [facility] HEPATITIS C ANTIBODY HEPATITIS C ANTIBODY Routine 03/06/2020 10:44 PM EST 03/06/2020 10:44:00 PM [facility] IADNA HEPATITIS C QUANTIFICATION HEPATITIS C RNA, QUANTITATIVE, PCR Routine 03/06/2020 10:44 PM EST 03/06/2020 10:44:00 PM [facility] GLUCOSE QUANTITATIVE BLOOD XCPT REAGENT STRIP POCT GLUCOSE, DOC KED Routine 03/06/2020 9:26 PM EST 03/06/2020 09:26:00 PM EST [facility] Results ID Date Data Source [id number] 03/13/2020 12:49:42 PM EST [facility] Name Value Range Interpretation Code Description Data Maria Antonia rce(s) Supporting Document(s) Discharge Summary [facility] [id number]/XERymXLHzd9OsOQlmFCg7NRpwVYKpK2ThPKR5uW0qMGP9YQcIEdFaWtLaLQZ8 lbm [file] AgICAgICAgICAgICAgICAgICAgICAgICAgICAgICAgICAgICAgICAgICAgICAgICAgICAgICAgICAgIC AgICAgICAgICAgICAgICAgICAgICAgICAgICAgICAg VH8DMFIqOVBlPYZxZFKyKAWsRITwFMQzXQOqZWWeKBBxOHDwCALtXXPlGSReJPWoIHDoZVRhYWAbFFMr IYYdXMZpANAvZNEsLAGhXEArVOTwPSZoWSJhCVIlQXJhVVAvXWBxOKVyIG7BQSLzXNZmFMBkWALpTVMm ICAgICAgICAgICAgICAgICAgICAgICAgICAgICAgIC JlYWHmXLBqKPSnICSkCQCcNCDkEHGtPJSsELXdARSdOUEtAARuFTNnXBYpCLSrECGsNUPsUC3OLBLcNN AgICAgICAgICAgICAgICAgICAgICAgICAgICAgICAgICAgICAgICAgICAgICAgICAgICAgICAgICAgIC AgICAgICAgICAgICAgICAgICAgICAgICAgICAgICAg EYMePL1LLVIjYXXdULEwMHQkQUTqOILaSEZoWISnLOYkLHOkZXEpLVSsZNElUZUnOHZjOQBeRAWsPEGb HISxPLYcNVYiDMQvUDNoMJXaKSCrFOIrENFfHTOvMQTrTMXtKEFuHOMoELFuAH2UOBMtMZMkCHCjEYHj ICAgICAgICAgICAgICAgICAgICAgICAgICAgICAgIC ZnFWOcYRHvUJRwOWNsJLKgZDUrRBDaTPPfMVAmDPFqZFZoGXOuXHNuXOAkZVFsIPInKGNlDFSnPZ8ALU AgICAgICAgICAgICAgICAgICAgICAgICAgICAgICAgICAgICAgICAgICAgICAgICAgICAgICAgICAgIC AgICAgICAgICAgICAgICAgICAgICAgICAgICAgICAg SFYhYJEnCL6FFFYmDHOrWEKpQBKxWDTfDUFrALRvJNRjTPAdJDZiPUXyCDXnFOEuPUUvTVFmCQGcMIMe SUUkBWRvMRHcRFWgHUFqHLOdHLQdCKVcRWKaNGXxIQRsDCKtQEGoVWIcERTzSBNhXX3KRWQmHBMbAXDh ICAgICAgICAgICAgICAgICAgICAgICAgICAgICAgIC AgICAgICAgICAgICAgICAgICAgICAgICAgICAgICAgICAgICAgICAgICAgICAgICAgICAgICAgICAgIA 0KICAgICAgICAgICAgICAgICAgICAgICAgICAgICAgICAgICAgICAgICAgICAgICAgICAgICAgICAgIC AgICAgICAgICAgICAgICAgICAgICAgICAgICAgICAg TKHgTSDpMLTqHR0MKS56eRFrb4N2LOUkRF1xfuk/Rc5WRMykarIeaUMpBP3UCyGpEZ7whp4YIpDoII9z qk7CRPuCLwZtT0W3lKFqYOMtMHDDRoLcK51aCNnqMh77AJjxLROxMpCjLIy2So0DDoUzL8rgHUQvGmQ1 LPUmSzB9NSPsIqE8DGKuCzKgLWIeFZPpXANdGJYKEK R4MIBiSvGyBSuqGT7Rw1IymHB1WMt+Ng0LPQ9kj4PfXCwfGNMfZB5ihh7YUFgBCzCoO8ScgoB2WPX9ZW QjAs9BSUNsDUEnpSPoAOPoUPKLGmKiA3TyrO11ESHHQi8+TCwyqcYwWqwERcE0FLJeo4SfKFj6VD0EHB KqKEl5yTQqUFosL7vzouvdPFP9zQ7pumrvPsoiUzAi l2piONUuSdRtATafHW5hIRByCT90OhUwOtDlMZE2RBGrNT9vFBwqNF3QYSB0JJmbIBMhPHLjL4jPFaJa GTZrRbJxaTdyRT9WBfLfT8YdihFcwUXeLPUoOSWQFw0+RZijecXdWjgUUrKtQRDyl0SoBQr6YQ2TRFXc WLlkXA5VKLHjsE2zBLwtDC7GYqClUqLiYHFAMqRfH5 2jpAQuEWj6R7CnUyYpNAZdCnuoMYThTJruSoTuMJUcCvUtKHfhUI8+ID4+ZZhgLV3RQCxhrjWvMEUmWa 3JZQKwERFpXR3vPPNmFHQgL9O0tByeYJPUWvKrR1zobigbTH5wGZYtD082zIqcrqNbRDA9ADOmMw6PGT PjCZG6WWRzbBHtQdqsSRMRTXljOE5QhZEjBHW6uM5e PMqoCQPcAHMcI8pTXiZhbXrfQA46yOccaeKeeHKhZIg+Ur2EBJ0lw2XpHDg6ncEpDCyeKKWpFEqcGQEu NAPaFSXcPNL9ONC7UMCTHvCbKSTxZKNqYDflYIQwXORect3TTHPhLJVyKUInPgKuAAAhPWRxGSqvYMFz VDImDdt7JYEvGIRtPY3OKwPmYDDhTQFhWIjiHGQxTI Kfox6EXBIhUHSlYtT5JePeHIDbJLNcFXwdEPUyBPGpSer8SWVfASWiJP7EXnUlHFFeGEpxRewpUXRcWE Npcv3HPDTiEMAbWNB5MtPrGWJkNUJwOGgvNFYhCGTlDTRgMNGsPUBbMW9NCtDgIPJkPGWcGqNeHMSvDM Zbxy1GMOTpNOEwFZDxCMFxNNQsEWPiSNynILPdRQW3 BpOmOTSpNBEwNS5PNfEwGAQzATa2WswfKQIxWTOhkk2EPTIjRJPgYbw2FSQoZTBqXPTwWTtuEFDoFMT0 CRY7BMXpFWAiSD5YLoQuNGBuQBzpFrWlPLCeVZOjud1QTKHpGNMqONAnGsScXPFwRZMaAPzpCUQhLWWl ScYpMOUaHROjPF2SPiBjNQMuPlT8IEJgDJVeLBGqck 8QSFKoOYIoILH9StMpPVMgCBLzDHsaPNUiXXAwLPO1KJRhRWSeOP6HKeWmPGUwMjT9KYXuICMlFLPjjt 5OZGFiISNrHcwnSUByLCYiZGRuCUsuMVUpCHQmVEDgCYLwWXFiMT4SHgHxPFMyBgYqKICoEZIlMFLugw 3BLGRrMJQdSTH9JRGtYFMbMFLqMSjkOUSkWAG1Wvc0 MATuWBFfHK3YIoVzWDJoTnE8ZcsdMLYhPKGrig5BSDKtRJVrZJUsLEGaXGLyTMTdCNblZXUcSVQ1CdNt EUBzIHTeDW8NMbFoRVPrJaV8AuBjWJMpCRIiqx8JMAEoYQFqHAY6ATJmHTKiECHfFGnrYRNwELKnHSm9 RBJvTXKjJK0ULbSpFIVcXfLpFDskSPZqFOKoln1DBQ NnJIYqKMR9TGSmZHXdYWBvLEncYIDiBFPrIMk2VORrWRGrIQ5DMtMsCIYnVdZhKIRvTUVkRRCahq3IGK QwLJPzRoHxCYAbWVQsWRYuGRpyNMHcSAPaRQt8MXXsZJVjJC7REkTsFGWfWkS5KwXpOVPcRFCaks4IuR HlrXwzjf7SXGzZPj9AxXcjSNFoLBjcPz4pyBC3BOBh TNAVJv7CgrCqJINiZNEBFPvkICWyANQ6IjBmBDUvRXhyRQVeMTz9GWDaRsXxKjQdIKYaZHA1XnX4XQt7 Y2C4SXZpJJSuA4AbUnTsSUB3CBB5U1YzViT9CwO+JS4pGSt+Ba9Uu8ShwuY5nyGtSElcPap3CH3EDHZN T0YNCg== ID Date Data Source [id number] 03/10/2020 12:20:35 PM [facility] Name Value Range Interpretation Code Description Data Maria Antonia rce(s) Supporting Document(s) Glucose [Mass/volume] in Capillary blood by Glucometer 191 mg/dL 70- 140 H [facility] ID Date Data Source [id number] 03/10/2020 08:24:44 AM [facility] Name Value Range Interpretation Code Description Data Maria Antonia rce(s) Supporting Document(s) Glucose [Mass/volume] in Capillary blood by Glucometer 140 mg/dL 70- 140 [facility] ID Date Data Source [id number] 03/10/2020 05:13:44 AM [facility] Name Value Range Interpretation Code Description Data Maria Antonia rce(s) Supporting Document(s) Prothrombin time (PT) 25.7 s 12.5-14.9 H [facility] INR in Platelet poor plasma by Coagulation assay 2.29 [facility] Routine intensity oral anticoagulation I NR is typically 2.0-3.0. Target INR must be clinically individualized. ID Date Data Source [id number] 03/10/2020 05:17:59 AM [facility] Value Range Interpretation Code Description Data Maria Antnoia rce(s) Supporting Document(s) Bilirubin.direct [Mass/volume] in Serum or Plasma 0.4 mg/dL <0.3 H [facility] ID Date Data Source [id number] 03/10/2020 05:17:59 AM [facility] Value Range Interpretation Code Description Data Maria Antonia rce(s) Supporting Document(s) Albumin [Mass/volume] in Serum or Plasma by Bromocresol green (BCG) dye binding method 1.7 g/dL 3.5-5.2 [facility] Bil[facility].total [Mass/volume] in Serum or Plasma 1.1 mg/dL <1.2 [facility] Calcium [Mass/volume] in Serum or Plasma 7.8 mg/dL 8.8-10.2 L [facility] Chloride [Moles/volume] in Serum or Plasma 104 mmol/L 98-107 [facility] Creatinine [Mass/volume] in Serum or Plasma 0.79 mg/dL 0.70-1.20 [facility] Glucose [Mass/volume] in Serum or Plasma 269 mg/dL 70-140 H [facility] Alkaline phosphatase [Enzymatic activity/volume] in Serum or Plasma 76 U/L 40-129 [facility] Potassium [Moles/volume] in Serum or Plasma 4.0 mmol/L 3.4-5.1 [facility] Protein [Mass/volume] in Serum or Plasma 5.1 g/dL 6.4-8.3 L [facility] Sodium [Moles/volume] in Serum or Plasma 132 mmol/L 136-145 L [facility] Aspartate aminotransferase [Enzymatic activity/volume] in Serum or Plasma 151 U/L <40 H [facility] Urea nitrogen [Mass/volume] in Serum or Plasma 15 mg/dL 8-23 [facility] Osmolality of Serum or Plasma by calculation 284 mosm/kg 275-300 [facility] Creatinine/Urea nitrogen [Mass Ratio] in Serum or Plasma 19 [facility] Bicarbonate [Moles/volume] in Serum 23 mmol/L 22-29 [facility] Alanine aminotransferase [Enzymatic activity/volume] in Seru m or Plasma 262 U/L <41 H [facility] Anion gap 3 in Serum or Plasma 5 mmol/L 8-15 L [facility] Glomerular filtration rate/1.73 sq M pre dicted among non-blacks [Volume Rate/Area] in Serum or Plasma by Creatinine-based formula (MDRD) >6 0 [facility] Glomerular filtration rate/1.73 sq M pre dicted among blacks [Volume Rate/Area] in Serum or Plasma by Creatinine-based formula (MDRD) >60 [facility] ID Date Data Source [id number] 03/10/2020 05:17:59 AM [facility] Value Range Interpretation Code Description Data Maria Antonia rce(s) Supporting Document(s) Creatine kinase [Enzymatic activity/volume] in Serum or Plasma 1 469 U/L 20-200 H [facility] ID Date Data Source [id number] 03/09/2020 09:27:30 PM [facility] Value Range Interpretation Code Description Data Maria Antonia rce(s) Supporting Document(s) Glucose [Mass/volume] in Capillary blood by Glucometer 211 mg/dL 70- 140 H [facility] ID Date Data Source [id number] 03/09/2020 06:39:34 PM [facility] Value Range Interpretation Code Description Data Maria Antonia rce(s) Supporting Document(s) Glucose [Mass/volume] in Capillary blood by Glucometer 273 mg/dL 70- 140 H [facility] ID Date Data Source [id number] 03/09/2020 05:42:11 PM [facility] Value Range Interpretation Code Description Data Maria Antonia rce(s) Supporting Document(s) Glucose [Mass/volume] in Capillary blood by Glucometer 256 mg/dL 70- 140 [facility] ID Date Data Source [id number] 03/09/2020 01:15:52 PM [facility] Value Range Interpretation Code Description Data Maria Antonia rce(s) Supporting Document(s) Glucose [Mass/volume] in Capillary blood by Glucometer 236 mg/dL 70- 140 [facility] ID Date Data Source [id number] 03/09/2020 12:00:29 PM [facility] Value Range Interpretation Code Description Data Maria Antonia rce(s) Supporting Document(s) Glucose [Mass/volume] in Capillary blood by Glucometer 206 mg/dL 70- 140 [facility] ID Date Data Source [id number] 03/09/2020 08:08:29 AM [facility] Value Range Interpretation Code Description Data Maria Antonia rce(s) Supporting Document(s) Glucose [Mass/volume] in Capillary blood by Glucometer 172 mg/dL 70- 140 [facility] ID Date Data Source [id number] 03/09/2020 05:10:42 AM [facility] Value Range Interpretation Code Description Data Maria Antonia rce(s) Supporting Document(s) Leukocytes [#/volume] in Blood by Automated count 5.8 10*3/uL 4-10 [facility] Erythrocytes [#/volume] in Blood by Automated count 3.22 10*6/uL 4.6- 6.1 L [facility] Hemoglobin [Mass/volume] in Blood 11.1 g/dL 13.5-18 L [facility] Hematocrit [Volume Fraction] of Blood by Automated count 32.7 % 4 1-53 L [facility] Erythrocyte mean corpuscular volume [Entitic volume] b y Automated count 101.6 fL 80-96 H [facility] Erythrocyte mean corpuscular hemoglobin [Entitic mass] by Automated count 34.3 pg 27-33 H [facility] Erythrocyte mean corpuscular hemoglobin concentration [Mass/volume] by Automated count 33.8 g/dL 32.0-36.0 [facility] E[facility] width [Ratio] by Automated count 17.3 % 11.5-14.5 H [facility] Platelets [#/volume] in Blood by Automated count 97 10*3/uL 150-400 L [facility] ID Date Data Source [id number] 03/09/2020 05:22:54 AM [facility] Name Value Range Interpretation Code Description Data Maria Antonia rce(s) Supporting Document(s) Prothrombin time (PT) 26.1 s 12.5-14.9 H [facility] INR in Platelet poor plasma by Coagulation assay 2.34 [facility] Routine intensity oral anticoagulation I NR is typically 2.0-3.0. Target INR must be clinically individualized. ID Date Data Source [id number] 03/09/2020 05:34:32 AM [facility] Value Range Interpretation Code Description Data Maria Antonia rce(s) Supporting Document(s) Bilirubin.direct [Mass/volume] in Serum or Plasma 0.5 mg/dL <0.3 H [facility] ID Date Data Source [id number] 03/09/2020 05:34:32 AM [facility] Value Range Interpretation Code Description Data Maria Antonia rce(s) Supporting Document(s) Albumin [Mass/volume] in Serum or Plasma by Bromocresol green (BCG) dye binding method 1.9 g/dL 3.5-5.2 [facility] Bilirubin.total [Mass/volume] in Serum or Plasma 1.6 mg/dL <1.2 [facility] Calcium [Mass/volume] in Serum or Plasma 7.8 mg/dL 8.8-10.2 L [facility] Chloride [Moles/volume] in Serum or Plasma 107 mmol/L 98-107 [facility] Creatinine [Mass/volume] in Serum or Plasma 0.82 mg/dL 0.70-1.20 [facility] Glucose [Mass/volume] in Serum or Plasma 228 mg/dL 70-140 H [facility] Alkaline phosphatase [Enzymatic activity/volume] in Serum or Plasma 72 U/L 40-129 [facility] Potassium [Moles/volume] in Serum or Plasma 3.7 mmol/L 3.4-5.1 [facility] Protein [Mass/volume] in Serum or Plasma 5.3 g/dL 6.4-8.3 L [facility] Sodium [Moles/volume] in Serum or Plasma 132 mmol/L 136-145 L [facility] Aspartate aminotransferase [Enzymatic activity/volume] in Serum or Plasma 253 U/L <40 H [facility] Urea nitrogen [Mass/volume] in Serum or Plasma 15 mg/dL 8-23 [facility] Osmolality of Serum or Plasma by calculation 283 mosm/kg 275-300 [facility] Creatinine/Urea nitrogen [Mass Ratio] in Serum or Plasma 19 [facility] Bicarbonate [Moles/volume] in Serum 20 mmol/L 22-29 L [facility] Alanine aminotransferase [Enzymatic activity/volume] in Seru m or Plasma 339 U/L <41 H [facility] Anion gap 3 in Serum or Plasma 6 mmol/L 8-15 L [facility] Glomerular filtration rate/1.73 sq M pre dicted among non-blacks [Volume Rate/Area] in Serum or Plasma by Creatinine-based formula (MDRD) >6 0 [facility] Glomerular filtration rate/1.73 sq M pre dicted among blacks [Volume Rate/Area] in Serum or Plasma by Creatinine-based formula (MDRD) >60 [facility] ID Date Data Source [id number] 03/09/2020 05:49:42 AM [facility] Value Range Interpretation Code Description Data Maria Antonia rce(s) Supporting Document(s) Creatine kinase [Enzymatic activity/volume] in Serum or Plasma 3 003 U/L 20-200 H [facility] Confirmed ID Date Data Source [id number] 03/08/2020 09:20:12 PM [facility] Value Range Interpretation Code Description Data Maria Antonia rce(s) Supporting Document(s) Glucose [Mass/volume] in Capillary blood by Glucometer 308 mg/dL 70- 140 H [facility] ID Date Data Source [id number] 03/08/2020 05:13:08 PM [facility] Value Range Interpretation Code Description Data Maria Antonia rce(s) Supporting Document(s) Glucose [Mass/volume] in Capillary blood by Glucometer 236 mg/dL 70- 140 [facility] ID Date Data Source [id number] 03/08/2020 11:58:35 AM [facility] Value Range Interpretation Code Description Data Maria Antonia rce(s) Supporting Document(s) Glucose [Mass/volume] in Capillary blood by Glucometer 285 mg/dL 70- 140 [facility] ID Date Data Source [id number] 03/08/2020 08:17:03 AM [facility] Name Value Range Interpretation Code Description Data Maria Antonia rce(s) Supporting Document(s) Glucose [Mass/volume] in Capillary blood by Glucometer 255 mg/dL 70- 140 H [facility] ID Date Data Source [id number] 03/08/2020 08:03:03 AM [facility] Name Value Range Interpretation Code Description Data Maria Antonia rce(s) Supporting Document(s) Consultation [facility] LNVDXo4gPhZZSzSk96/RJFbbPGLht5HoCBdpNLl2RLrcBGEhV3TpVVE4rD9tNMX2SQrGEpLgVzFyAWV9 lbm YnEwoTZnHyVFGgBwuCKcBsOPtuMmrgeNRpPQ2JdRD0ULMzE43kKHLeDDPpN5KkVMJcUkW+Iz5CZAQqxL JyBN6MHmvR7L6lC4nLSc7+BufkzymurcYaCIVEq3bhySW9vRJV5bvhp99QiPMKF7M6ZhK2DjpRN9eEXV uBJ6qlIftB4jfCCsEJP7+/x7iyWG2z57fGmSWmdeX/ o75XiyJBccM//7XNo3jw0jv9l+di2jQosLwCg1I+U9tfv/Cmr7Z+slQ6m+mkq6RIZgZgjVsBllxUDv4Y 71Ss4NQO3xTB3fPSK2q4kgRV3DV5//H1a9X/wXn92o0wVR2Ns+3Vqu/hk4IFeHy6mw9v0NZ4aLXsbqLr 74nF5dw16m4gcExVLmuI/ZmWhxxZKeXDdNHNlNmmiT y0M082w6Pf4CUUjRKk5pxllLbsqeJX/ZjrS6wo18/2OQrU9M6nVytFwfmHm7TEfGXytgCug0FblDmKbj vcc2OFOu5XgRXxCVwOzzE2LoJAonWaPTMv9l1Kk+m+Dag6Pf0O06Ha1VzFX8EB+8PPCV0W63hTFBjikl wC6WMR1D9/n80100V3kkL91B1QFB+8x160h9Q6zRgG [file] [id number] ID Date Data Source [id number] 03/08/2020 07:46:34 AM [facility] US ABDOMEN LIMITED [id number] RESULTInte rpreted by:Kerri Adhikari, MDPROCEDURE INFORMATION: Exam: US Abdomen, Limited; Right Upper Quadrant Exam date and time: 03/08/2020 5:35 AM Age: 64 years old Clinical indication: Screening exam; Other: Evaluate ruq TECHNIQUE: Imaging protocol: US abdomen. Real time ultrasound with image documentation. Limited exam focused on the right upper quadrant. COMPARISON: US ABDOMEN LIMITED [id number] PORTABLE 03/06/2020 11:29 PM FINDINGS: Liver: The [...] rce(s) Supporting Document(s) ID Date Data Source [id number] 03/09/2020 04:07:16 PM [facility] Name Value Range Interpretation Code Description Data Maria Antonia rce(s) Supporting Document(s) Liver kidney microsomal 1 Ab [Units/volume] in Serum 0.0-2 0.0 [facility] (NOTE) Neg ative 0.0 - 20.0 Equivocal 20.1 - 24.9 Positive >24.9LKM type 1 antibodies are detected in patients withautoimmune hepatitis type 2 and in up to 8% ofpatients with chronic HCV infection.Performed At: [facility] [address] [id number] Bee MD Ph:[phone] ID Date Data Source [id number] 03/09/2020 09:05:59 PM [facility] Name Value Range Interpretation Code Description Data Maria Antonia rce(s) Supporting Document(s) IgG [Mass/volume] in Serum or Plasma 1984 mg/dL 603-1613 H [facility] IgG subclass 1 [Mass/volume] in Serum 1143 mg/dL 248-810 H [facility] IgG subclass 2 [Mass/volume] in Serum 316 mg/dL 130-555 [facility] IgG subclass 3 [Mass/volume] in Serum 74 mg/dL 15-102 [facility] IgG subclass 4 [Mass/volume] in Serum 97 mg/dL 2-96 H [facility] (NOTE)Performed At: [facility] [id number] [place], [place] [id number] Sanjai MD Ph:[phone] At: [facility] [address] [id number] Bee MD Ph:[phone] ID Date Data Source [id number] 03/09/2020 10:05:41 PM [facility] Name Value Range Interpretation Code Description Data Maria Antonia rce(s) Supporting Document(s) Hepatitis C virus RNA [Units/volume] (vi ral load) in Serum or Plasma by Probe and target amplification method [facility] Hepatitis C virus RNA [log units/volume] (viral load) in Serum or Plasma by Probe and target amplification method [facility] Service comment [facility] (NOTE)The quantitative range of this ass ay is 15 IU/mL to 100 millionIU/mL.Performed At: [facility] [address] [id number] Bee MD Ph:[phone] ID Date Data Source [id number] 03/08/2020 08:17:03 AM [facility] Value Range Interpretation Code Description Data Maria Antonia rce(s) Supporting Document(s) Hepatitis A virus IgM Ab [Presence] in Serum or Plasma by Im munoassay Non Reactive [facility] No acute infection, susceptible to infec tion. Hepatitis B virus core IgM Ab [Presence] in Serum or Plasma by Immunoassay Non Reactive [facility] IgM antibodies to HBc were not detected, does not exclude the possibility of exposure to HBV. Hepatitis C virus Ab [Presence] in Serum or Plasma by Immuno assay Non Reactive [facility] Past or current Hepatitis C infection. S pecimen forwarded to reference laboratory for quantitative HCV RNA testing. Hepatitis B virus surface Ag [Presence] in Serum or Plasma b y Immunoassay Non Reactive [facility] No active or previous infection. Suscept ible to infection. ID Date Data Source [id number] 03/08/2020 10:30:48 AM [facility] Name Value Range Interpretation Code Description Data Maria Antonia rce(s) Supporting Document(s) Hepatitis B virus surface Ab [Units/volume] in Serum o r Plasma by Immunoassay 18 m[IU]/mL >11.4 [facility] ReactiveImmunity due to hepatitis B immu nization or natural infection. ID Date Data Source [id number] 03/09/2020 01:27:49 PM [facility] Value Range Interpretation Code Description Data Maria Antonia rce(s) Supporting Document(s) Neutrophil cytoplasmic Ab [Presence] in Serum by Immunofluoresce nce Negative [facility] ID Date Data Source [id number] 03/09/2020 02:21:54 PM [facility] Value Range Interpretation Code Description Data Maria Antonia rce(s) Supporting Document(s) Mitochondria Ab [Units/volume] in Serum Negative [facility] ID Date Data Source [id number] 03/09/2020 02:21:54 PM [facility] Value Range Interpretation Code Description Data Maria Antonia rce(s) Supporting Document(s) Actin smooth muscle IgG Ab [Units/volume] in Serum Negativ e [facility] ID Date Data Source [id number] 03/08/2020 07:37:50 AM [facility] Value Range Interpretation Code Description Data Maria Antonia rce(s) Supporting Document(s) Prothrombin time (PT) 30.9 s 12.5-14.9 H [facility] INR in Platelet poor plasma by Coagulation assay 2.89 [facility] Routine intensity oral anticoagulation I NR is typically 2.0-3.0. Target INR must be clinically individualized. ID Date Data Source [id number] 03/08/2020 08:10:23 AM [facility] Value Range Interpretation Code Description Data Maria Antonia rce(s) Supporting Document(s) Acetaminophen [Mass/volume] in Serum or Plasma 10.0-30.0 L [facility] ID Date Data Source [id number] 03/08/2020 08:10:23 AM [facility] Value Range Interpretation Code Description Data Maria Antonia rce(s) Supporting Document(s) Alanine aminotransferase [Enzymatic activity/volume] in Seru m or Plasma 432 U/L <41 H [facility] ID Date Data Source [id number] 03/08/2020 08:10:23 AM [facility] Value Range Interpretation Code Description Data Maria Antonia rce(s) Supporting Document(s) Aspartate aminotransferase [Enzymatic activity/volume] in Serum or Plasma 469 U/L <40 H [facility] ID Date Data Source [id number] 03/08/2020 08:10:23 AM [facility] Value Range Interpretation Code Description Data Maria Antonia rce(s) Supporting Document(s) Alkaline phosphatase [Enzymatic activity/volume] in Serum or Plasma 76 U/L 40-129 [facility] ID Date Data Source [id number] 03/08/2020 08:10:23 AM [facility] Value Range Interpretation Code Description Data Maria Antonia rce(s) Supporting Document(s) Albumin [Mass/volume] in Serum or Plasma by Bromocresol green (BCG) dye binding method 1.9 g/dL 3.5-5.2 [facility] S[facility] [Moles/volume] in Serum or Plasma 130 mmol/L 136-145 L [facility] Potassium [Moles/volume] in Serum or Plasma 4.0 mmol/L 3.4-5.1 [facility] Chloride [Moles/volume] in Serum or Plasma 104 mmol/L 98-107 [facility] Bicarbonate [Moles/volume] in Serum 19 mmol/L 22-29 L [facility] Glucose [Mass/volume] in Serum or Plasma 270 mg/dL 70-140 H [facility] Urea nitrogen [Mass/volume] in Serum or Plasma 13 mg/dL 8-23 [facility] Creatinine [Mass/volume] in Serum or Plasma 0.73 mg/dL 0.70-1.20 [facility] Calcium [Mass/volume] in Serum or Plasma 7.9 mg/dL 8.8-10.2 L [facility] Phosphate [Mass/volume] in Serum or Plasma 2.3 mg/dL 2.5-4.5 [facility] Glomerular filtration rate/1.73 sq M pre dicted among non-blacks [Volume Rate/Area] in Serum or Plasma by Creatinine-based formula (MDRD) >6 0 [facility] Glomerular filtration rate/1.73 sq M pre dicted among blacks [Volume Rate/Area] in Serum or Plasma by Creatinine-based formula (MDRD) >60 [facility] ID Date Data Source [id number] 03/08/2020 08:10:23 AM [facility] Value Range Interpretation Code Description Data Maria Antonia rce(s) Supporting Document(s) Bilirubin.total [Mass/volume] in Serum or Plasma 2.2 mg/dL <1.2 H [facility] ID Date Data Source [id number] 03/08/2020 08:10:23 AM [facility] Value Range Interpretation Code Description Data Maria Antonia rce(s) Supporting Document(s) Ferritin [Mass/volume] in Serum or Plasma 170 ng/ml 30-400 [facility] ID Date Data Source [id number] 03/08/2020 08:10:23 AM [facility] Value Range Interpretation Code Description Data Maria Antonia rce(s) Supporting Document(s) Bilirubin.direct [Mass/volume] in Serum or Plasma 0.7 mg/dL <0.3 H [facility] ID Date Data Source [id number] 03/08/2020 08:10:23 AM [facility] Value Range Interpretation Code Description Data Maria Antonia rce(s) Supporting Document(s) Protein [Mass/volume] in Serum or Plasma 5.3 g/dL 6.4-8.3 L [facility] ID Date Data Source [id number] 03/08/2020 08:10:23 AM [facility] Value Range Interpretation Code Description Data Maria Antonia rce(s) Supporting Document(s) Salicylates [Mass/volume] in Serum or Plasma 3.0-30.0 L [facility] ID Date Data Source [id number] 03/08/2020 10:14:48 AM [facility] Value Range Interpretation Code Description Data Maria Antonia rce(s) Supporting Document(s) Alpha 1 antitrypsin [Mass/volume] in Serum or Plasma 110 mg/dl 90-20 0 [facility] ID Date Data Source [id number] 03/08/2020 10:14:48 AM [facility] Value Range Interpretation Code Description Data Maria Antonia rce(s) Supporting Document(s) Ceruloplasmin [Mass/volume] in Serum or Plasma 16 mg/dl 15-30 [facility] ID Date Data Source [id number] 03/08/2020 11:28:28 AM [facility] Value Range Interpretation Code Description Data Maria Antonia rce(s) Supporting Document(s) Natriuretic peptide.B prohormone N-Terminal [Mass/volu me] in Serum or Plasma 805 pg/mL <125 H [facility] ID Date Data Source [id number] 03/08/2020 11:50:41 AM [facility] Value Range Interpretation Code Description Data Maria Antonia rce(s) Supporting Document(s) Fibrin D-dimer FEU [Mass/volume] in Platelet poor plas ma by Immunoassay 0.57 ug/mL{FEU} <0.50 [facility] ID Date Data Source [id number] 03/08/2020 03:01:46 PM [facility] Value Range Interpretation Code Description Data Maria Antonia rce(s) Supporting Document(s) Lactate dehydrogenase [Enzymatic activit y/volume] in Serum or Plasma by Lactate to pyruvate reaction 1330 U/L 122-225 H [facility] Confirmed ID Date Data Source [id number] 03/08/2020 05:17:56 AM [facility] Value Range Interpretation Code Description Data Maria Antonia rce(s) Supporting Document(s) Leukocytes [#/volume] in Blood by Automated count 7.0 10*3/uL 4-10 [facility] Erythrocytes [#/volume] in Blood by Automated count 3.33 10*6/uL 4.6- 6.1 [facility] Hemoglobin [Mass/volume] in Blood 11.4 g/dL 13.5-18 [facility] Hematocrit [Volume Fraction] of Blood by Automated count 33.5 % 4 1-53 [facility] Erythrocyte mean corpuscular volume [Entitic volume] b y Automated count 100.7 fL 80-96 [facility] Erythrocyte mean corpuscular hemoglobin [Entitic mass] by Automated count 34.2 pg 27-33 [facility] Erythrocyte mean corpuscular hemoglobin concentration [Mass/volume] by Automated count 34.0 g/dL 32.0-36.0 [facility] distribution width [Ratio] by Automated count 16.6 % 11.5-14.5 [facility] Platelets [#/volume] in Blood by Automated count 90 10*3/uL 150-400 [facility] ID Date Data Source [id number] 03/08/2020 05:34:12 AM [facility] Value Range Interpretation Code Description Data Maria Antonia rce(s) Supporting Document(s) Albumin [Mass/volume] in Serum or Plasma by Bromocresol green (BCG) dye binding method 2.0 g/dL 3.5-5.2 [facility] Bilirubin.total [Mass/volume] in Serum or Plasma 2.2 mg/dL <1.2 H [facility] Calcium [Mass/volume] in Serum or Plasma 7.8 mg/dL 8.8-10.2 L [facility] Chloride [Moles/volume] in Serum or Plasma 107 mmol/L 98-107 [facility] Creatinine [Mass/volume] in Serum or Plasma 0.71 mg/dL 0.70-1.20 [facility] Glucose [Mass/volume] in Serum or Plasma 274 mg/dL 70-140 H [facility] Alkaline phosphatase [Enzymatic activity/volume] in Serum or Plasma 80 U/L 40-129 [facility] Potassium [Moles/volume] in Serum or Plasma 4.0 mmol/L 3.4-5.1 [facility] Protein [Mass/volume] in Serum or Plasma 5.2 g/dL 6.4-8.3 L [facility] Sodium [Moles/volume] in Serum or Plasma 133 mmol/L 136-145 L [facility] Aspartate aminotransferase [Enzymatic activity/volume] in Serum or Plasma 501 U/L <40 H [facility] Urea nitrogen [Mass/volume] in Serum or Plasma 14 mg/dL 8-23 [facility] Osmolality of Serum or Plasma by calculation 286 mosm/kg 275-300 [facility] Creatinine/Urea nitrogen [Mass Ratio] in Serum or Plasma 20 [facility] Bicarbonate [Moles/volume] in Serum 19 mmol/L 22-29 L [facility] Alanine aminotransferase [Enzymatic activity/volume] in Seru m or Plasma 441 U/L <41 H [facility] Anion gap 3 in Serum or Plasma 7 mmol/L 8-15 L [facility] Glomerular filtration rate/1.73 sq M pre dicted among non-blacks [Volume Rate/Area] in Serum or Plasma by Creatinine-based formula (MDRD) >6 0 [facility] Glomerular filtration rate/1.73 sq M pre dicted among blacks [Volume Rate/Area] in Serum or Plasma by Creatinine-based formula (MDRD) >60 [facility] ID Date Data Source [id number] 03/07/2020 09:33:42 PM [facility] Value Range Interpretation Code Description Data Maria Antonia rce(s) Supporting Document(s) Glucose [Mass/volume] in Capillary blood by Glucometer 300 mg/dL 70- 140 [facility] ID Date Data Source [id number] 03/07/2020 09:33:42 PM [facility] Value Range Interpretation Code Description Data Maria Antonia rce(s) Supporting Document(s) Glucose [Mass/volume] in Capillary blood by Glucometer 314 mg/dL 70- 140 [facility] ID Date Data Source [id number] 03/07/2020 06:05:04 PM [facility] Value Range Interpretation Code Description Data Maria Antonia rce(s) Supporting Document(s) Glucose [Mass/volume] in Capillary blood by Glucometer 264 mg/dL 70- 140 [facility] ID Date Data Source [id number] 03/07/2020 04:39:38 PM [facility] Value Range Interpretation Code Description Data Maria Antonia rce(s) Supporting Document(s) Glucose [Mass/volume] in Capillary blood by Glucometer 233 mg/dL 70- 140 [facility] ID Date Data Source [id number] 03/07/2020 11:49:44 AM [facility] Value Range Interpretation Code Description Data Maria Antonia rce(s) Supporting Document(s) Glucose [Mass/volume] in Capillary blood by Glucometer 326 mg/dL 70- 140 [facility] ID Date Data Source [id number] 03/07/2020 08:33:10 AM [facility] Value Range Interpretation Code Description Data Maria Antonia rce(s) Supporting Document(s) Glucose [Mass/volume] in Capillary blood by Glucometer 315 mg/dL 70- 140 [facility] ID Date Data Source [id number] 03/07/2020 01:46:37 AM [facility] Value Range Interpretation Code Description Data Maria Antonia rce(s) Supporting Document(s) History and Physical [facility] UMGLHu3fQxZWOaIo60/CXJvxVZDoe2KhHDodRTd9DXkrQLLfY2MnLTH7uN9lECL0DVxOSeEmQgNqWQSf [facility] [file] VBWxO4gQZNJmLF6J9TcKtADDEehSg99WUzK0ArsH9uBvdjzujs2y5GiMjBNdSRj1Hho+CyDSSDi/[employer] [file] AgICAgICAgICAgICAgICAgICAgICAgICAgICAgICAgICAgICAgICAgICAgICAgICAgICAgICAgICAgIC AgICAgICAgICAgICAgICAgICAgICAgDQogICAgICAgICAgICAgICAgICAgICAgICAgICAgICAgICAgIC AgICAgICAgICAgICAgICAgICAgICAgICAgICAgICAg ICAgICAgICAgICAgICAgICAgICAgICAgICAgICAgICAgDQogICAgICAgICAgICAgICAgICAgICAgICAg ICAgICAgICAgICAgICAgICAgICAgICAgICAgICAgICAgICAgICAgICAgICAgICAgICAgICAgICAgICAg ICAgICAgICAgICAgICAgDQogICAgICAgICAgICAgIC AgICAgICAgICAgICAgICAgICAgICAgICAgICAgICAgICAgICAgICAgICAgICAgICAgICAgICAgICAgIC AgICAgICAgICAgICAgICAgICAgICAgICAgDQogICAgICAgICAgICAgICAgICAgICAgICAgICAgICAgIC AgICAgICAgICAgICAgICAgICAgICAgICAgICAgICAg ICAgICAgICAgICAgICAgICAgICAgICAgICAgICAgICAgICAgDQogICAgICAgICAgICAgICAgICAgICAg ICAgICAgICAgICAgICAgICAgICAgICAgICAgICAgICAgICAgICAgICAgICAgICAgICAgICAgICAgICAg ICAgICAgICAgICAgICAgICAgDQogICAgICAgICAgIC AgICAgICAgICAgICAgICAgICAgICAgICAgICAgICAgICAgICAgICAgICAgICAgICAgICAgICAgICAgIC AgICAgICAgICAgICAgICAgICAgICAgICAgICAgDQogICAgICAgICAgICAgICAgICAgICAgICAgICAgIC AgICAgICAgICAgICAgICAgICAgICAgICAgICAgICAg ICAgICAgICAgICAgICAgICAgICAgICAgICAgICAgICAgICAgICAgDQogICAgICAgICAgICAgICAgICAg ICAgICAgICAgICAgICAgICAgICAgICAgICAgICAgICAgICAgICAgICAgICAgICAgICAgICAgICAgICAg ICAgICAgICAgICAgICAgICAgICAgDQogICAgICAgIC AgICAgICAgICAgICAgICAgICAgICAgICAgICAgICAgICAgICAgICAgICAgICAgICAgICAgICAgICAgIC NbTYLbMIIwGASwEZRbOJZoJBSvEWAoFCDiLCOzNCRdJNk2T1vaJHQiEJDvJP0lZZu0Ds0+DQoNCmVuZH Z2uvCzvE0YUJ0mw5VdCVfrOKSgi8HnTUa9IM2JJVCp KPwvCE0IXQzwim0EZLDmMIGmuYUNl6crLvOrATY0QTFgKdhqXP9HYCDiV7mplpNhBWSaWANNIFmeBESJ IFnmONABMYMiUGTmLvExPySpKKQdWIRnWICTJV6BOsYhZ1VukZ69BSIRIw9+SYkvrtRzJydMMeQ9WIAh f7YiOLs4HV9GOAPoUzfpj7UtHkkrUDPJSLsfQD0KKL Z4EGG3ZDZqPz1AHBAoU637epBnBU9FDr1ARoRqXV5lrz3AOwwbVBKdCalSVrw9BPhzMY7NrCMkWTzTOj FuGwqtGV4rAHFur56rNM22Wv9imckwYDSTKoWwfWLoMlXwIfBuNTReEFunOmMKZJpCUzApP2Kra7RwDb A5VJMyIrLpNYuvNYNjHzV9ZL75xAxnAT3HLKOyCYRf OD85ZXA3YIHfVy3OId0TBmAwHE1hoi4JEPJwCDTfOakUPds7YHogJS6UoRIaT6RlwZIuv8eNMzPsG6TQ BXT5BUMhSy3BISKcGsRlXVBmUDgdCH6gHFObNZBCiMtoxrD6LB8EYI9ypwGtHC4BXpXtHi8wJk1RDsMg O3IoE7OiGBXtFUEKAYuvYG9NZGofWI0uWV2Re6LVsI BqqK1kwk5ODNTwIQWtLwpbmo0AYxotB3R8lWvyUHRpViqiZIXEHIhtPU7FIKYqSNP5TCQlLmLgQFWOJp CxB80hEA2CI5Zfd48pHoW2PVEfWjUqOGplOY69xZbqbpZyuJHzePpuOH5FYa2+DQplbmRvYmoNCnhyZW GDIcZwJPXUFnLcQUNiFMYdUKBlVwN2KdDsUx0UHGOz KINdFWRzYeZfDHUcNCDrJTrcTSTgALPjBSGfEWGmTGPiZZ1FBfLeMFGfLWO4GBraQTPvIZEirb6NZMCu MUQvGJH4LcEyRFBpBRMhDYfdONCfSJLoAZo8BKQcWKIsXH3WKeYbUKUsYBPgLYMtOZTmNCQhuw0YMZMe TPRyXHS4CcTsRZSmZGNxEFlcAXApFVK5JRp6TGZuLO BzII7YPmGzFNNoUQH1HClzBKCuUOWyrx5SRVRvMCQvJXy0EOCnZVTeBCGfUMfhQVNkQKY8ZTJ2YPTbZS RfYG7LBwJuVRMzTNYiHtIwFYOyRLXkpq0UCBHjZTVjBKAjAEQgAAXnAXWjVLulWWUmQUQ8FuRyDDSvRJ TyZZ4VZsWwXUWrDwK0RJrhUGDsBFIrvg0ORDNyDBHr XCPbUBQyVGDiHRUoYNqwCDGpXYUrHMi6ACFiAKYaCY5BHoHbITBiFpCxGDPmWCMyCJCkac4RFHBfBNVf XvM2XLCnBQSlJDVaDZyiCKHuPCBqIeGpBMQfMNVmWF2SMlBmBULwWfR4NkVyYOPvUPCxne6UOCZgAUHq NdoaRhMaMNYmYFQhGHjbETGsKUU5PvycMKTeOLXxZI 5CTfJqUASpZmP1FdIrLPMtPZXrln7AQXSvDKDgXYW5GkRnLNQqTOSuLMhbTEYtDBG8BNBlYAHvZHSqLR 0GLqRcLXBrHwRrWOFfGZEcYOFyzz7FTUGfWEQcInHlIcHqTIIfIURgBRtwUJAkAHR2Fus3CJTzCXCoXB 0RSwJwRSUsNrfbUILpBUGfSWSlez5CUMUuACRvWWKv BKObQDIlMNTlLWgrCWHvUPM3HIYzZRTwKAVyMN9WCgWiKBHaWyy6KHohCTQdTDJhzu8JVFXwCIDmFPT1 RbLcPHDkWRWyIDumKUOoCUD0XVEaFDBjTPXvVA7ILnHrECNzDRYwFLmjMTJsKVTldt5JAXUpFFW8UUE9 IMVkHINnWKZjDJbbYZAwVSUsGHZ6GVIhZSUcKM5BZl TwQKXaXHBpFLMiHVSdJZWgjk4CBEItCFS3ScF4XYUkHVEnZDHmAFf7cwMftJZhOOp0YS2FH6EyxfQwQM HIPf8Vn327YZNdHMZcZl1JT1teTv6wPBWvAEDYXq7DFWt1DSYjHPbqANKgGsE2WUArUAIgVnR5ZFY0LS g1GYYmRVA+ITc9NGDnVZR2KZSmCFzfMvC6H2H5Min5 NfK8TQgeFBP9NV2zNIMTUm9+AHzdyWArdLvrHWUEFvCxPwo0WHwiYJXSXf8N ID Date Data Source [id number] 03/07/2020 03:17:54 AM [facility] Name Value Range Interpretation Code Description Data Maria Antonia rce(s) Supporting Document(s) Ethanol [Mass/volume] in Serum or Plasma Negative [facility] ID Date Data Source [id number] 03/07/2020 02:17:20 AM [facility] Name Value Range Interpretation Code Description Data Maria Antonia rce(s) Supporting Document(s) Leukocytes [#/volume] in Blood by Automated count 6.8 10*3/uL 4-10 [facility] Erythrocytes [#/volume] in Blood by Automated count 3.38 10*6/uL 4.6- 6.1 L [facility] Hemoglobin [Mass/volume] in Blood 11.5 g/dL 13.5-18 L [facility] Hematocrit [Volume Fraction] of Blood by Automated count 33.7 % 4 1-53 L [facility] Erythrocyte mean corpuscular volume [Entitic volume] by Auto mated count 99.8 fL 80-96 H [facility] Erythrocyte mean corpuscular hemoglobin [Entitic mass] by Automated count 34.0 pg 27-33 H [facility] Erythrocyte mean corpuscular hemoglobin concentration [Mass/volume] by Automated count 34.0 g/dL 32.0-36.0 [facility] Erythrocyte distribution width [Ratio] by Automated count 16.3 % 11.5-14.5 H [facility] Platelets [#/volume] in Blood by Automated count 82 10*3/uL 150-400 L [facility] ID Date Data Source [id number] 03/07/2020 02:52:13 AM [facility] Name Value Range Interpretation Code Description Data Maria Antonia rce(s) Supporting Document(s) Albumin [Mass/volume] in Serum or Plasma by Bromocresol green (BCG) dye binding method 1.9 g/dL 3.5-5.2 L [facility] al Bilirubin.total [Mass/volume] in Serum or Plasma 1.8 mg/dL <1.2 H [facility] Calcium [Mass/volume] in Serum or Plasma 7.8 mg/dL 8.8-10.2 L [facility] Chloride [Moles/volume] in Serum or Plasma 103 mmol/L 98-107 [facility] Creatinine [Mass/volume] in Serum or Plasma 0.78 mg/dL 0.70-1.20 [facility] Glucose [Mass/volume] in Serum or Plasma 336 mg/dL 70-140 H [facility] Alkaline phosphatase [Enzymatic activity/volume] in Serum or Plasma 85 U/L 40-129 [facility] Potassium [Moles/volume] in Serum or Plasma 4.5 mmol/L 3.4-5.1 [facility] Protein [Mass/volume] in Serum or Plasma 5.3 g/dL 6.4-8.3 L [facility] Sodium [Moles/volume] in Serum or Plasma 133 mmol/L 136-145 L [facility] Aspartate aminotransferase [Enzymatic activity/volume] in Serum or Plasma 852 U/L <40 H [facility] Confirmed Urea nitrogen [Mass/volume] in Serum or Plasma 14 mg/dL 8-23 [facility] Osmolality of Serum or Plasma by calculation 289 mosm/kg 275-300 [facility] Creatinine/Urea nitrogen [Mass Ratio] in Serum or Plasma 18 [facility] Bicarbonate [Moles/volume] in Serum 22 mmol/L 22-29 [facility] Alanine aminotransferase [Enzymatic activity/volume] in Seru m or Plasma 505 U/L <41 H [facility] Anion gap 3 in Serum or Plasma 9 mmol/L 8-15 [facility] Glomerular filtration rate/1.73 sq M pre dicted among non-blacks [Volume Rate/Area] in Serum or Plasma by Creatinine-based formula (MDRD) >6 0 [facility] Glomerular filtration rate/1.73 sq M pre dicted among blacks [Volume Rate/Area] in Serum or Plasma by Creatinine-based formula (MDRD) >60 [facility] ID Date Data Source [id number] 03/07/2020 10:12:22 AM [facility] Name Value Range Interpretation Code Description Data Maira Antonia rce(s) Supporting Document(s) Creatine kinase [Enzymatic activity/volume] in Serum or Plasma 1 4700 U/L 20-200 H [facility] Confirmed ID Date Data Source [id number] 03/07/2020 05:41:54 AM [facility] Name Value Range Interpretation Code Description Data Maria Antonia rce(s) Supporting Document(s) Color of Urine [facility] Clarity of Urine [facility] Specific gravity of Urine by Refractometry automated 1.005 1.003 -1.030 [facility] pH of Urine by Automated test strip 5.0 5.0-8.0 [facility] Protein [Mass/volume] in Urine by Automated test strip Neg [facility] Glucose [Mass/volume] in Urine by Automated test strip Neg [facility] Ketones [Mass/volume] in Urine by Automated test strip Neg [facility] Bilirubin.total [Presence] in Urine by Automated test strip Negative [facility] Hemoglobin [Presence] in Urine by Automated test strip Neg [facility] Leukocyte esterase [Presence] in Urine by Automated test strip Negative [facility] Nitrite [Presence] in Urine by Automated test strip Negati ve [facility] Leukocytes [#/area] in Urine sediment by Automated count 1 /HPF 0 -5 [facility] Erythrocytes [#/area] in Urine sediment by Automated count 6 /HPF 0-3 H [facility] Bacteria [#/area] in Urine sediment by Automated count Non e A [facility] Epithelial cells.squamous [#/area] in Urine sediment by Automate d count None A [facility] Mucus [#/area] in Urine sediment by Microscopy low power field None [facility] [place] [#/area] in Urine sediment by Microscopy high po wer field 2 /[HPF] None [facility] ID Date Data Source [id number] 03/06/2020 11:38:58 PM [facility] US ABDOMEN LIMITED [id number] RESULTInte rpreted by:BRANDON FigueroaPROCEDURE INFORMATION: Exam: US [...] Data Source [id number] 03/06/2020 10:57:00 PM EST [facility] Name Value Range Interpretation Code Description Data Maria Antonia rce(s) Supporting Document(s) SARS-CoV-2 RNA [facility] This lab was ordered by [facility] and reported by [facility] ID Date Data Source [id number] 03/07/2020 09:57:18 AM 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 Name Value Range Interpretation Code Description Data Maria Antonia rce(s) Supporting Document(s) Bicarbonate [Moles/volume] in Serum 20 mmol/L 22-29 L [facility] Chloride [Moles/volume] in Serum or Plasma 103 mmol/L 98-107 [facility] Creatinine [Mass/volume] in Serum or Plasma 0.77 mg/dL 0.70-1.20 [facility] Glucose [Mass/volume] in Serum or Plasma 317 mg/dL 70-140 H [facility] Potassium [Moles/volume] in Serum or Plasma 4.9 mmol/L 3.4-5.1 [facility] Hemolyzed Sodium [Moles/volume] in Serum or Plasma 133 mmol/L 136-145 L [facility] Urea nitrogen [Mass/volume] in Serum or Plasma 13 mg/dL 8-23 [facility] Anion gap 3 in Serum or Plasma 9 mmol/L 8-15 [facility] Osmolality of Serum or Plasma by calculation 288 mosm/kg 275-300 [facility] Creatinine/Urea nitrogen [Mass Ratio] in Serum or Plasma 17 [facility] Calcium [Mass/volume] in Serum or Plasma 7.8 mg/dL 8.8-10.2 L [facility] Glomerular filtration rate/1.73 sq M pre dicted among non-blacks [Volume Rate/Area] in Serum or Plasma by Creatinine-based formula (MDRD) >6 0 [facility] Glomerular filtration rate/1.73 sq M pre dicted among blacks [Volume Rate/Area] in Serum or Plasma by Creatinine-based formula (MDRD) >60 [facility] ID Date Data Source [id number] 03/07/2020 12:29:32 AM [facility] Name Value Range Interpretation Code Description Data Maria Antonia rce(s) Supporting Document(s) Albumin [Mass/volume] in Serum or Plasma by Bromocresol green (BCG) dye binding method 1.9 g/dL 3.5-5.2 [facility] Bil[facility] [Mass/volume] in Serum or Plasma 1.6 mg/dL <1.2 H [facility] Bilirubin.direct [Mass/volume] in Serum or Plasma 0.5 mg/dL <0.3 H [facility] Alkaline phosphatase [Enzymatic activity/volume] in Serum or Plasma 88 U/L 40-129 [facility] Aspartate aminotransferase [Enzymatic activity/volume] in Serum or Plasma 897 U/L <40 H [facility] Confirmed Alanine aminotransferase [Enzymatic activity/volume] in Seru m or Plasma 506 U/L <41 H [facility] Protein [Mass/volume] in Serum or Plasma 5.4 g/dL 6.4-8.3 [facility] ID Date Data Source [id number] 03/07/2020 12:29:32 AM [facility] Value Range Interpretation Code Description Data Maria Antonia rce(s) Supporting Document(s) Creatine kinase [Enzymatic activity/volume] in Serum or Plasma 1 6166 U/L 20-200 H [facility] Confirmed ID Date Data Source [id number] 03/06/2020 11:56:27 PM [facility] Value Range Interpretation Code Description Data Maria Antonia rce(s) Supporting Document(s) Prothrombin time (PT) 45.6 s 12.5-14.9 H [facility] INR in Platelet poor plasma by Coagulation assay 4.72 [facility] Routine intensity oral anticoagulation I NR is typically 2.0-3.0. Target INR must be clinically individualized. ID Date Data Source [id number] 03/06/2020 11:42:13 PM [facility] Value Range Interpretation Code Description Data Maria Antonia rce(s) Supporting Document(s) Leukocytes [#/volume] in Blood by Automated count 6.9 10*3/uL 4-10 [facility] Erythrocytes [#/volume] in Blood by Automated count 3.39 10*6/uL 4.6- 6.1 [facility] Hemoglobin [Mass/volume] in Blood 11.6 g/dL 13.5-18 L [facility] Hematocrit [Volume Fraction] of Blood by Automated count 34.0 % 4 1-53 L [facility] Erythrocyte mean corpuscular volume [Entitic volume] b y Automated count 100.4 fL 80-96 H [facility] Erythrocyte mean corpuscular hemoglobin [Entitic mass] by Automated count 34.1 pg 27-33 H [facility] Erythrocyte mean corpuscular hemoglobin concentration [Mass/volume] by Automated count 34.0 g/dL 32.0-36.0 [facility] distribution width [Ratio] by Automated count 16.4 % 11.5-14.5 [facility] Platelets [#/volume] in Blood by Automated count 79 10*3/uL 150-400 [facility] Differential cell count method - Blood [facility] Neutrophils/100 leukocytes in Blood by Automated count 65 % [facility] Lymphocytes/100 leukocytes in Blood by Automated count 16 % [facility] Monocytes/100 leukocytes in Blood by Automated count 14 % [facility] Eosinophils/100 leukocytes in Blood by Automated count 4 % [facility] Basophils/100 leukocytes in Blood by Automated count 1 % [facility] Neutrophils [#/volume] in Blood by Automated count 4.44 10*3/uL 1.8-7 .0 [facility] Lymphocytes [#/volume] in Blood by Automated count 1.09 10*3/uL 1.2-4 .0 [facility] Monocytes [#/volume] in Blood by Automated count 0.94 10*3/uL 0-0.8 H [facility] Eosinophils [#/volume] in Blood by Automated count 0.30 10*3/uL 0-0.5 [facility] Basophils [#/volume] in Blood by Automated count 0.08 10*3/uL 0-0.2 [facility] Nucleated erythrocytes/100 leukocytes [Ratio] in Blood by Automated count 0 /100{WBCs} 0-0 [facility] ID Date Data Source [id number] 03/07/2020 03:14:13 AM [facility] Name Value Range Interpretation Code Description Data Maria Antonia rce(s) Supporting Document(s) Hepatitis C virus Ab [Presence] in Serum or Plasma by Immuno assay Non Reactive A [facility] Past or current Hepatitis C infection. S desirae forwarded to reference laboratory for quantitative HCV RNA testing. ID Date Data Source [id number] 03/06/2020 09:28:51 PM [facility] Name Value Range Interpretation Code Description Data Maria Antonia rce(s) Supporting Document(s) Glucose [Mass/volume] in Capillary blood by Glucometer 293 mg/dL 70- 140 H [facility] ID Date Data Source [id number] 03/05/2020 02:20:00 PM EST [facility] Name Value Range Interpretation Code Description Data Maria Antonia rce(s) Supporting Document(s) SARS coronavirus 2 RNA [Presence] in Res piratory specimen by ARAM with probe detection [facility] This lab was ordered by [facility] a nd reported by [facility]. Procedure Social History Code Duration Value Status Description Data Source(s ) Alcohol intake 03/06/2020 12:00:00 AM EST Ex-drinker (finding) comp leted Ex- drinker (finding) [facility] Smoking 03/06/2020 12:00:00 AM EST Unknown if ever smoked comp leted Unknown if ever smoked [facility] Vital Signs ID Date Data Source [id number] 03/17/2020 07:53:41 AM [facility] Name Value Range Interpretation Code Description Data Source(s) WEIGHT RECORDED 156 lb 156 lb [facility] Body height Measured 70 in 70 in [facility] WEIGHT RECORDED 154.6 lb 154.6 lb [facility] Body height Measured 70 in 70 in [facility] TRANSFER FROM [facility] Patient Treatment Plan of Care Planned Activity Planned Date Details Description Data Source (s) Spironolactone 100 MG Oral Tablet 03/11/2020 12:00:00 AM [facility] Furosemide 40 MG Oral Tablet 03/11/2020 12:00:00 AM [facility] dextrose 50 % IV solution 25 mL 03/06/2020 09:52:55 PM [facility] Glucagon 1 MG Injection 03/06/2020 09:52:55 PM [facility] Glucose 0.417 MG/MG Oral Gel 03/06/2020 09:52:55 PM [facility]
[2020-04-01 18:46] LABS: VENOUS HCO3 27.2 MEQ/L (23.0-27.0); VENOUS O2 SATURATION 53.5 % (60.0-80.0); VENOUS PARTIAL PRESSURE CO2 60.7 mmHg (38.0-50.0); VENOUS PARTIAL PRESSURE O2 32.9 mmHg (30.0-50.0); VENOUS STANDARD HCO3 22.6 MEQ/L; VENOUS TOTAL CO2 29.1 MEQ/L (24.0-28.0)
[2020-04-01 19:04] LABS: ACETONE/KETONE 2.54 MG/DL (<2.81)
[2020-04-01 19:21] LABS: RSV AMPLIFICATION NEGATIVE (NEGATIVE)
[2020-04-01] MEDS ORDERED: INSUHUMDS SC (19:26)
[2020-04-01] MEDS ORDERED: DOCU100C16 PO (19:26)
[2020-04-01] MEDS ORDERED: VITA50005 PO (19:26)
[2020-04-01] MEDS ORDERED: DEX44CHW2 PO (19:26)
[2020-04-01] MEDS ORDERED: ASPI81TA26 PO (19:26)
[2020-04-01] MEDS ORDERED: GLUC1KIT IM (19:26)
[2020-04-01] MEDS ORDERED: WARF4TAB51 PO (19:26)
[2020-04-01] MEDS ORDERED: INSUDET SC (19:26)
[2020-04-01] MEDS ORDERED: INSULIN REGULAR IN 0.9 % NACL 100 UNIT in IV 1 EA IV SCH ×2 (19:57)
--- OUTSIDE RECORDS SUMMARY | 2020-04-01 19:59 | CCD ---
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 Unavailable Unavailable Re-disclosure Warning The [...] is protected by Article 27-F of the [facility] Public Health law. If you continue you may have access to information: Regarding HIV / AIDS; Provided by facilities licensed or operated by the [facility] Office of Mental Health; or Provided by the [facility] Office for People With Developmental Disabilities. If such information is present, then the following [facility] mandated warning applies: This information has been [...] ) DRUG INGREDI SPIRONOLACTONE SPIRONOLACTONE Other [facility] DRUG INGREDI GABAPENTIN GABAPENTIN N&V [facility] Drug Class EGGS OR EGG-DERIVED PRODUCTS EGGS OR EGG-DERIVED PRODUCTS [facility] Encounters Encounter Providers Location Date Indications Data Source(s ) Inpatient Attender: MOON PEREZ MDAtte nder: SERENITY COBB MDAttender: JOSETTE STEWART MDAttender: ANGELO WATTS MDAttender: DAVID Youssef MDAdmitter: AUDIE HernándezReferrer: DAVID Youssef MDConsultant: JOSETTE STEWART MD [id number] 03/06/2020 12:00:00 AM EST - 03/10/2020 03:51:00 PM EST hepatic encephalopaty, rhabdo, AMS [facility] hepatic encephalopaty, rhabdo, AMS Patient discharged. Outpatient 08/29/2019 05:31:00 AM EDT [facility] Outpatient 06/06/2019 11:12:00 AM EDT [facility] Outpatient 04/09/2019 10:11:00 AM EST [facility] Outpatient 03/30/2019 08:13:00 PM EST [facility] Medications Medication Brand Name Start Date Product Form Dose Route Admi nistrative Instructions Pharmacy Instructions Status Indications Reaction Description Data Source(s) Furosemide 40 MG Oral Tablet Furosemide 40 MG Oral Tab let (LASIX) Furosemide 40 MG Oral Tablet (LASIX) 03/11/2020 12:00:00 AM EST 40 mg Oral active Take 1 tablet by mouth daily [facility] Spironolactone 100 MG Oral Tablet Spironolactone 100 M G Oral Tablet (ALDACTONE) Spironolactone 100 MG Oral Tablet (ALDACTONE) 03/11/2020 12:00:00 AM EST 100 mg Oral active Take 1 tablet by mouth d [facility] Insulin Glargine 100 UNT/ML Injectable S olution insulin glargine (LANTUS) injection 28 Units insulin glargine (LANTUS) injection 28 Units 10:00:00 PM EST 28 U Subcutaneous active 28 Units, Subcutaneous, Nightly, First dose (after last modification) on Sun03/09/20 at 2200, For 27 doses
For blood glucose less than 70 mg/dL: follow hypoglycemia protocol (CM H-) and notify provider.For blood glucose values between 70 mg/dL and 100 mg/dL at bedtime: provide snack (15 grams of carbohydrates) with some protein. Administer FULL DOSE of insulin glargine (LANTUS) after snack.Record snack in I&O's. For blood glucose more than 400 mg/dL: notify provider
[facility] Medication administered onsite Spironolactone 25 MG Oral Tablet spironolactone (ALDAC TONE) tablet 100 mg spironolactone (ALDACTONE) tablet 100 mg 03/09/2020 09:00:00 AM EST 100 mg Oral active 100 mg, Oral, Daily Standard, First dose on Sun03/09/20 at 0900, For 30 days [facility] Medication administered onsite Furosemide 40 MG Oral Tablet furosemide (LASIX) tablet 40 mg furosemide (LASIX) tablet 40 mg 03/09/2020 09:00:00 AM EST 40 mg Oral activ e 40 mg, Oral, Daily Standard, First dose on Sun03/09/20 at 0900, For 30 days [facility] Medication administered onsite Insulin Glargine 100 UNT/ML [...] glucose more than 400 mg/dL: notify provider
[facility] Medication administered onsite Lactulose 667 MG/ML Oral Solution lactulose (CHRONULAC ) solution 30 mL lactulose (CHRONULAC) solution 30 mL 03/08/2020 01:45:00 PM EST 30 mL Oral completed 30 mL, Oral, Every 6 hours, First dose (after last reorder) on Sun03/08/20 at 1345, For 1 dose
Titrate to 3-4 bowel movements per day
[facility] Medication administered onsite furosemide (LASIX) injection 40 mg [id number] 03/08/2020 05:45:00 AM EST 40 mg Intravenous completed 40 mg, I ntravenous, Once, Sun03/08/20 at 0545, For 1 dose
Notify provider if systolic blood pressure less than: 90 [facility] Medication administered onsite Acetaminophen 325 MG Oral [...] mg from all sources in 24 hours.
[facility] Medication administered onsite metoprolol (LOPRESSOR) split tablet 12.5 mg [id number] 03/07/2020 09:00:00 AM EST 12.5 mg Oral active 12.5 mg, Oral, Daily Standard, First dose (after last modification) on 03/07/20 at 0900, For 30 days [facility] Medication administered onsite Lisinopril 5 MG Oral Tablet lisinopril (PRINIVIL,ZESTR IL) tablet 5 mg lisinopril (PRINIVIL,ZESTRIL) tablet 5 mg 03/07/2020 09:00:00 AM EST 5 mg Or al active 5 mg, Oral, Daily Standard, Fir st dose on 03/07/20 at 0900, For 30 days [facility] Medication administered onsite Thiamine 100 MG Oral Tablet thiamine (B-1) tablet 100 mg thiamine (B-1) tablet 100 mg 03/07/2020 09:00:00 AM EST 100 mg Oral active 100 mg, Oral, Daily Standard, First dose on 03/07/20 at 0900, For 30 days [facility] Medication administered onsite NaCl infusion 0.9 % [id number] 03/07/2020 09:00:00 AM EST Intravenous aborted at 100 mL/hr, Intrav enous, Continuous, Starting 03/07/20 at 0900, For 24 hours [facility] Medication administered onsite Docusate Sodium 100 MG Oral Capsule docusate sodium (C OLACE) capsule 100 mg docusate sodium (COLACE) capsule 100 mg 03/07/2020 09:00:00 AM EST 100 mg Oral active 100 mg, Oral, 2 Times Daily, First dose on 03/07/20 at 0900, For 30 days [facility] Medication administered onsite rifaximin 550 MG Oral Tablet rifAXIMin (XIFAXAN) table t 550 mg rifAXIMin (XIFAXAN) tablet 550 mg 03/07/2020 09:00:00 AM EST 550 mg Oral active 550 mg, Oral, 2 Times Daily, First dose on 03/07/20 at 0900, For 30 days [facility] Medication administered onsite Capsaicin 1 MG/ML Topical Cream capsaicin (CAPZASIN HP ) 0.1 % topical cream capsaicin (CAPZASIN HP) 0.1 % topical cream 03/07/2020 09:00:00 AM EST Topical active Topical, Three Times Daily Standard, First dose on 03/07/20 at 0900, For 30 days
Apply to back, legs and shoulders
[facility] Medication administered onsite 0.4 ML Enoxaparin sodium [...] hours after epidural catheter has been removed.
[facility] Medication administered onsite insulin lispro (HumaLOG) injection MEDIU M DOSE EATING INSULIN patients 1-16 Units [id number] 03/07/2020 08:00:00 AM EST U Subcutaneous active 1-16 Units, Subcutaneous, Three Times Daily-With Meals, First dose on 03/07/20 at 0800, For 30 days
Nursing MUST open the 'SQ Insulin Dosing Charts' Sidebar Report, or, the Patient Summary or Summary Report within the ED.
[facility] Medication administered onsite Ceftriaxone 2000 MG Injection cefTRIAXone (ROCEPHIN) I VPB (premix) 2 g cefTRIAXone (ROCEPHIN) IVPB (premix) 2 g 03/06/2020 11:15:00 PM EST 2 g Intravenous completed 2 g, Intraven ous, at 100 mL/hr, Every 24 hours, First dose (after last modification) on 03/06/20 at 2315, For 1 dose
Discouraged Uses: Empiric treatment of post-surgical meningitis (ceftazidime preferred)
[facility] Medication administered onsite Lactulose 667 MG/ML Oral Solution lactulose (CHRONULAC ) solution 40 mL lactulose (CHRONULAC) solution 40 mL 03/06/2020 11:00:00 PM EST 40 mL Oral aborted 40 mL, Oral, Three Times Da lela Standard, First dose (after last modification) on 03/06/20 at 2300, For 30 days
Titrate to 3-4 bowel movements per day
[facility] Medication administered onsite NaCl infusion 0.9 % [id number] 03/06/2020 10:00:00 PM EST Intravenous aborted at 100 mL/hr, Intrav enous, Continuous, Starting 03/06/20 at 2200, For 24 hours [facility] Medication administered onsite furosemide (LASIX) injection 20 mg [id number] 03/06/2020 10:00:00 PM EST 20 mg Intravenous completed 20 mg, I ntravenous, Once, 03/06/20 at 2200, For 1 dose
Notify provider if systolic blood pressure less than: 100 [facility] Medication administered onsite Insulin Glargine 100 UNT/ML [...] glucose more than 400 mg/dL: notify provider
[facility] Medication administered onsite ondansetron (ZOFRAN) injection 4 mg [id number] 03/06/2020 09:57:5 5 PM EST 4 mg Intravenous active 4 mg, In travenous, Every 8 hours PRN, Nausea, Vomiting, Starting 03/06/20 at 2157, For 30 days [facility] Medication administered onsite Oxycodone Hydrochloride 5 MG [...] only) require Pain Service consultation and approval.
[facility] Medication administered onsite dextrose 50 % IV solution 25 mL [id number] 03/06/2020 09:52:[address] 25 mL Intravenous active 25 mL, Intrav enous, PRN, Other, blood glucose <55, Starting 03/06/20 at 2152, For 30 days
Not for midline administration.
[facility] Medication administered onsite Glucagon 1 MG Injection glucagon (human recombinant) ( GLUCAGEN) injection 1 mg glucagon (human recombinant) (GLUCAGEN) injection 1 mg 03/06/2020 09:52:55 PM EST 1 mg Intramuscular active 1 mg, Intramuscular, PRN, for glucose <55 without IV access, Starting 03/06/20 at 2152, For 30 days [facility] Medication administered onsite Glucose 0.417 MG/MG Oral Gel glucose (GLUTOSE) 40 % or al gel 15 g glucose (GLUTOSE) 40 % oral gel 15 g 03/06/2020 09:52:55 PM EST 15 g Oral active 15 g, Oral, PRN, Low blood s ugar, for gluose 55-69 mg/dl and able to take PO, Starting 03/06/20 at 2152, For 30 days [facility] Medication administered onsite Acetaminophen 325 MG Oral [...] mg from all sources in 24 hours.
[facility] Medication administered onsite Insurance Providers Payer name Policy type / Coverage type Policy ID Covered constitution party ID Covered constitution party's relationship to coffey Policy Coffey Plan Information [employer]UM [place] CCN [id number] SP [id number] OTHER B [id number] Self [id number] VA CCN OPTUM [id number] SP [id number] 'S ADMINISTRATION [id number] SP [id number] OPTUM VA O [id number] S [id number] O [id number] S [id number] WPS [id number] [place] [id number] SP [id number] WEST O [id number] S [id number] COMMERCIAL GENERIC [id number] [facility] 5 [id number] COMMERCIAL GENERIC [id number] 'S ADMINISTRATION [id number] SP [id number] Problems, Conditions, and Diagnoses Code Display Name Description Problem Type Effective Dates Data Source(s) hepatic encephalopaty, rhabdo, AMS hepatic encep halopaty, rhabdo, AMS Diagnosis 03/06/2020 07:53:00 PM [facility] Surgeries/Procedures Procedure Description Date Indications Data Source(s) POCT GLUCOSE, DOCKED POCT GLUCOSE, DOCKED Routine 03/10/2020 11:38 AM EST 03/10/2020 11:38:00 AM [facility] POCT GLUCOSE, DOCKED POCT GLUCOSE, DOCKED Routine 03/10/2020 7:50 AM EST 03/10/2020 07:50:00 AM [facility] PROTHROMBIN TIME PROTIME INR Routine 03/10/2020 3:08 AM EST 03/10/2020 03:08:00 AM [facility] CREATINE KINASE TOTAL CK Routine 03/10/2020 3:08 AM EST 03/10/2020 03:08:00 AM [facility] BILIRUBIN DIRECT BILIRUBIN, DIRECT Routine 03/10/2020 3:08 AM EST 03/10/2020 03:08:00 AM [facility] COMPREHENSIVE METABOLIC PANEL COMPREHENSIVE METABOLIC PANEL Rou irina 03/10/2020 3:08 AM EST 03/10/2020 03:08:00 AM [facility] GLUCOSE QUANTITATIVE BLOOD XCPT REAGENT STRIP POCT GLUCOSE, DOC NATALIIA Routine 03/09/2020 9:12 PM EST 03/09/2020 09:12:00 PM [facility] GLUCOSE QUANTITATIVE BLOOD XCPT REAGENT STRIP POCT GLUCOSE, DOC KENay Routine 03/09/2020 5:58 PM EST 03/09/2020 05:58:00 PM [facility] GLUCOSE QUANTITATIVE BLOOD XCPT REAGENT STRIP POCT GLUCOSE, DOC KENay Routine 03/09/2020 5:02 PM EST 03/09/2020 05:02:00 PM [facility] GLUCOSE QUANTITATIVE BLOOD XCPT REAGENT STRIP POCT GLUCOSE, MELANIA WILLIAM Routine 03/09/2020 1:00 PM EST 03/09/2020 01:00:00 PM [facility] GLUCOSE QUANTITATIVE BLOOD XCPT REAGENT STRIP POCT GLUCOSE, DOC NATALIIA Routine 03/09/2020 11:36 AM EST 03/09/2020 11:36:00 AM [facility] GLUCOSE QUANTITATIVE BLOOD XCPT REAGENT STRIP POCT GLUCOSE, DOC NATALIIA Routine 03/09/2020 7:49 AM EST 03/09/2020 07:49:00 AM [facility] PROTHROMBIN TIME PROTIME INR Routine 03/09/2020 4:47 AM EST 03/09/2020 04:47:00 AM [facility] BLOOD COUNT COMPLETE AUTOMATED CBC Routine 03/09/2020 4:47 A M EST 03/09/2020 04:47:00 AM [facility] CREATINE KINASE TOTAL CK Routine 03/09/2020 4:47 AM EST 03/09/2020 04:47:00 AM [facility] BILIRUBIN DIRECT BILIRUBIN, DIRECT Routine 03/09/2020 4:47 AM EST 03/09/2020 04:47:00 AM [facility] COMPREHENSIVE METABOLIC PANEL COMPREHENSIVE METABOLIC PANEL Rou irina 03/09/2020 4:47 AM EST 03/09/2020 04:47:00 AM [facility] GLUCOSE QUANTITATIVE BLOOD XCPT REAGENT STRIP POCT GLUCOSE, DOC PETERSOND Routine 03/08/2020 9:17 PM EST 03/08/2020 09:17:00 PM [facility] GLUCOSE QUANTITATIVE BLOOD XCPT REAGENT STRIP POCT GLUCOSE, DOC KED Routine 03/08/2020 4:40 PM EST 03/08/2020 04:40:00 PM [facility] GLUCOSE QUANTITATIVE BLOOD XCPT REAGENT STRIP POCT GLUCOSE, DOC KED Routine 03/08/2020 11:46 AM EST 03/08/2020 11:46:00 AM [facility] GLUCOSE QUANTITATIVE BLOOD XCPT REAGENT STRIP POCT GLUCOSE, DOC KED Routine 03/08/2020 8:12 AM EST 03/08/2020 08:12:00 AM [facility] NEUTROPHIL CYTO AB COMMENT NEUTROPHIL CYTO AB COMMENT Routine 03/08/2020 7:04 AM EST 03/08/2020 07:04:00 AM [facility] MICROSOMAL ANTIBODIES EACH LIVER KIDNEY MICROS IGG Routine 03/08/2020 7:04 AM EST 03/08/2020 07:04:00 AM [facility] ACETAMINOPHEN, RANDOM ACETAMINOPHEN, RANDOM Routine 03/08/2020 7 :04 AM EST 03/08/2020 07:04:00 AM [facility] NATRIURETIC PEPTIDE PROBNP Routine 03/08/2020 7:04 AM EST 03/08/2020 07:04:00 AM [facility] FLUORESCENT NONNFCT AGT ANTB TITER EA ANTIBODY NEUTROPHIL C YTOPLASMIC ANTIBODY Routine 03/08/2020 7:04 AM EST 03/08/2020 07:04:00 AM [facility] NOUED-7-ISRCPICMXOW TOTAL VFCJM-[id number] Routine 021 7:04 AM EST 03/08/2020 07:04:00 AM [facility] FLUORESCENT NONNFCT AGT ANTB SCREEN EA ANTIBODY MITOCHONDRI AL ANTIBODIES Routine 03/08/2020 7:04 AM EST 03/08/2020 07:04:00 AM [facility] CERULOPLASMIN CERULOPLASMIN Routine 03/08/2020 7:04 AM EST 03/08/2020 07:04:00 AM [facility] ACUTE HEPATITIS PANEL HEPATITIS PANEL, ACUTE Routine 03/08/2020 7:04 AM EST 03/08/2020 07:04:00 AM [facility] GAMMAGLOBULIN IGA IGD IGG IGM EACH IGG SUBCLASSES Routine 03/08/2020 7:04 AM EST 03/08/2020 07:04:00 AM [facility] IADNA HEPATITIS C QUANTIFICATION HEPATITIS C RNA, QUANTITATIVE, PCR Routine 03/08/2020 7:04 AM EST 03/08/2020 07:04:00 AM [facility] FLUORESCENT NONNFCT AGT ANTB SCREEN EA ANTIBODY ANTI-SMOOTH MUSCLE ANTIBODY Routine 03/08/2020 7:04 AM EST 03/08/2020 07:04:00 AM [facility] HEPATITIS B SURF ANTIBODY HBSAB HEPATITIS B SURFACE ANTIBODY Ro utine 03/08/2020 7:04 AM EST 03/08/2020 07:04:00 AM [facility] PROTHROMBIN TIME PROTIME INR Routine 03/08/2020 7:04 AM EST 03/08/2020 07:04:00 AM [facility] FIBRIN DGRADJ PRODUCTS D-DIMER QUAL/SEMIQUAN D-DIMER, QUANTITAT PARESH Routine 03/08/2020 7:04 AM EST 03/08/2020 07:04:00 AM [facility] TRANSFERASE ALANINE AMINO ALT SGPT ALT Routine 03/08/2020 7: 04 AM EST 03/08/2020 07:04:00 AM [facility] TRANSFERASE ASPARTATE AMINO AST SGOT AST Routine 03/08/2020 7:04 AM EST 03/08/2020 07:04:00 AM [facility] PROTEIN XCPT REFRACTOMETRY SERUM PLASMA/WHL BLD PROTEIN, TOTAL Routine 03/08/2020 7:04 AM EST 03/08/2020 07:04:00 AM [facility] PHOSPHATASE ALKALINE ALKALINE PHOSPHATASE Routine 03/08/2020 7:04 AM EST 03/08/2020 07:04:00 AM [facility] LACTATE DEHYDROGENASE LDH LACTATE DEHYDROGENASE Routine 03/08/2020 7:04 AM EST 03/08/2020 07:04:00 AM [facility] FERRITIN FERRITIN LEVEL Routine 03/08/2020 7:04 AM EST 03/08/2020 07:04:00 AM [facility] BILIRUBIN DIRECT BILIRUBIN, DIRECT Routine 03/08/2020 7:04 AM EST 03/08/2020 07:04:00 AM [facility] BILIRUBIN TOTAL BILIRUBIN, TOTAL Routine 03/08/2020 7:04 AM EST 03/08/2020 07:04:00 AM [facility] SALICYLATE LEVEL SALICYLATE LEVEL Routine 03/08/2020 7:04 AM EST 03/08/2020 07:04:00 AM [facility] RENAL FUNCTION PANEL RENAL FUNCTION PANEL Routine 03/08/2020 7:04 AM EST 03/08/2020 07:04:00 AM [facility] ULTRASOUND ABDOMINAL REAL TIME W/IMAGE LIMITED US ABDOMEN L IMITED [id number] Routine 03/08/2020 6:56 AM EST 03/08/2020 06:56:24 AM [facility] BLOOD COUNT COMPLETE AUTOMATED CBC Routine 03/08/2020 4:03 A M EST 03/08/2020 04:03:00 AM [facility] COMPREHENSIVE METABOLIC PANEL COMPREHENSIVE METABOLIC PANEL Rou irina 03/08/2020 4:03 AM EST 03/08/2020 04:03:00 AM [facility] GLUCOSE QUANTITATIVE BLOOD XCPT REAGENT STRIP POCT GLUCOSE, DOC KED Routine 03/07/2020 9:22 PM EST 03/07/2020 09:22:00 PM [facility] GLUCOSE QUANTITATIVE BLOOD XCPT REAGENT STRIP POCT GLUCOSE, DOC KED Routine 03/07/2020 7:13 PM EST 03/07/2020 07:13:00 PM [facility] GLUCOSE QUANTITATIVE BLOOD XCPT REAGENT STRIP POCT GLUCOSE, DOC KED Routine 03/07/2020 5:57 PM EST 03/07/2020 05:57:00 PM [facility] GLUCOSE QUANTITATIVE BLOOD XCPT REAGENT STRIP POCT GLUCOSE, DOC KED Routine 03/07/2020 4:37 PM EST 03/07/2020 04:37:00 PM [facility] GLUCOSE QUANTITATIVE BLOOD XCPT REAGENT STRIP POCT GLUCOSE, DOC KED Routine 03/07/2020 11:43 AM EST 03/07/2020 11:43:00 AM [facility] GLUCOSE QUANTITATIVE BLOOD XCPT REAGENT STRIP POCT GLUCOSE, DOC KED Routine 03/07/2020 8:32 AM EST 03/07/2020 08:32:00 AM [facility] ETHYL ALCOHOL LEVEL ETHYL ALCOHOL LEVEL Routine 03/07/2020 1:45 AM EST 03/07/2020 01:45:00 AM [facility] BLOOD COUNT COMPLETE AUTOMATED CBC Routine 03/07/2020 1:34 A M EST 03/07/2020 01:34:00 AM [facility] CREATINE KINASE TOTAL CK Routine 03/07/2020 1:34 AM EST 03/07/2020 01:34:00 AM [facility] COMPREHENSIVE METABOLIC PANEL COMPREHENSIVE METABOLIC PANEL Rou irina 03/07/2020 1:34 AM EST 03/07/2020 01:34:00 AM [facility] URNLS DIP STICK/TABLET REAGENT AUTO MICROSCOPY URINALYSIS W ITH MICROSCOPIC Routine 03/07/2020 1:18 AM EST 03/07/2020 01:18:00 AM [facility] ULTRASOUND ABDOMINAL REAL TIME W/IMAGE LIMITED US ABDOMEN LIMIT ED [id number] STAT 03/06/2020 11:31 PM EST 03/06/2020 11:31:17 PM [facility] COVID-19 PCR COVID-19 PCR Routine 03/06/2020 10:57 PM EST 03/06/2020 10:57:00 PM [facility] PROTHROMBIN TIME PROTIME INR STAT 03/06/2020 10:57 PM EST 03/06/2020 10:57:00 PM [facility] BLOOD COUNT COMPLETE AUTO&AUTO DIFRNTL WBC COUNT CBC AND DIFFER ENTIAL Routine 03/06/2020 10:57 PM EST 03/06/2020 10:57:00 PM [facility] CREATINE KINASE TOTAL CK Routine 03/06/2020 10:57 PM EST 03/06/2020 10:57:00 PM [facility] HEPATIC FUNCTION PANEL HEPATIC FUNCTION PANEL A STAT 10:57 PM EST 03/06/2020 10:57:00 PM [facility] BASIC METABOLIC PANEL CALCIUM TOTAL BASIC METABOLIC PANEL STAT 03/06/2020 10:57 PM EST 03/06/2020 10:57:00 PM [facility] HEPATITIS C ANTIBODY HEPATITIS C ANTIBODY Routine 03/06/2020 10:44 PM EST 03/06/2020 10:44:00 PM [facility] IADNA HEPATITIS C QUANTIFICATION HEPATITIS C RNA, QUANTITATIVE, PCR Routine 03/06/2020 10:44 PM EST 03/06/2020 10:44:00 PM [facility] GLUCOSE QUANTITATIVE BLOOD XCPT REAGENT STRIP POCT GLUCOSE, DOC KED Routine 03/06/2020 9:26 PM EST 03/06/2020 09:26:00 PM [facility] Results ID Date Data Source [id number] 03/13/2020 12:49:42 PM [facility] Name Value Range Interpretation Code Description Data Maria Antonia rce(s) Supporting Document(s) Discharge Summary [facility] UPOUVt0dWkZODvDc59/HDYbjPTCfn4HkZUogHPh7FIhqYHUrM2KkPRJ9jK5yDMG8BEeJLlIuVaFwDHE1 lbm [file] AgICAgICAgICAgICAgICAgICAgICAgICAgICAgICAgICAgICAgICAgICAgICAgICAgICAgICAgICAgIC AgICAgICAgICAgICAgICAgICAgICAgICAgICAgICAg FI7RLRPfTMGsOHItFYHcBLIaZVMjCHMtLKAuGQApBFGsWQRtFEHbLYJiEOHiEBYbHGJdVBBjTZFxSAVh YTIlOBBiSWNlCYOcVUJiCZTcHNGvSOXcFEMcQMSzOANeCERlDRSoSTYfTJ5MNCTjAJExPZJfIQSxIUCc ICAgICAgICAgICAgICAgICAgICAgICAgICAgICAgIC DcTSBpMAFqHBPhVRZoTMXrKPUtRDMpBAKbFLMmHKHpWIPfADNlLRWsNBVuGWYmYQHeDDHtVE1AUMHmFW AgICAgICAgICAgICAgICAgICAgICAgICAgICAgICAgICAgICAgICAgICAgICAgICAgICAgICAgICAgIC AgICAgICAgICAgICAgICAgICAgICAgICAgICAgICAg UXDeMP7QGOUgABVmZWCpJXRyOWMnRSExOAAbUUGpRNTaFRUcHALsBEZoEONhOHYrPEOuXFYoHMQhFGBa UCJmUBPdTZPlEFOnQTXuHZKsSYZcTIUvJUKtFIVvTJBdZEXoCUVbGMQgYPThXT9OHCWsJNUaJLPtNHQt ICAgICAgICAgICAgICAgICAgICAgICAgICAgICAgIC OmZDOiPXUfUWWtEBPvXYQrLBXcKQYvLNLjOCVfSKXkIZIgEVHkAYVuXDAcNVGsWLNoMDKpXUKlLX8CFD AgICAgICAgICAgICAgICAgICAgICAgICAgICAgICAgICAgICAgICAgICAgICAgICAgICAgICAgICAgIC AgICAgICAgICAgICAgICAgICAgICAgICAgICAgICAg PGItKQCfKU6LDRLlUVMpQSGqRRPcTARlUCVhWAGlQAFoIPWsVOOjUGRdKVRdJDRiHKJdIOIlHOYtHRDw LGRiCRGyBDYoLQBaYFNzOZGfOMImQGOjNOGcTBDsHHLrJDKbIMVaEDMeRHYcYYRtRX8UTLQmWTJpOWUu ICAgICAgICAgICAgICAgICAgICAgICAgICAgICAgIC AgICAgICAgICAgICAgICAgICAgICAgICAgICAgICAgICAgICAgICAgICAgICAgICAgICAgICAgICAgIA 0KICAgICAgICAgICAgICAgICAgICAgICAgICAgICAgICAgICAgICAgICAgICAgICAgICAgICAgICAgIC AgICAgICAgICAgICAgICAgICAgICAgICAgICAgICAg NBQiRMUyQSMmOT4LJI56wRAou7J9WBWjSQ5luos/Vl9IJVayznNrgFQvOR4LBjToRN9ohu9EDoOlMP6r id1EVMaFUuPcS1S2sERpIORxPTTTUnLfJ20nINwnHk83LYgcLNKmGnTcCFk3Ef6EYbPcW2liBTRjHgS4 LOBxYlO4EXHlQxF9GBViAsLpGHKfVTJaGJVnBYXUTZ X1ZSOzRlRgEIlcZC4Db0CmkUG2WJe+Lp4JUQ1sz3DyLRwlQGPmYI1lhr2EIOdJByBqZ2EvflT3WTQ1GD GdPm8BUTTmYMQpxPSyYZDyJELLKkBsJ8RkfF02EMEFVs2+HLcflgZnGrgJJnI4XAFcd9LrWBm4HY5NXE OiYIr0vYBfKHkqB0frknquWEQ5lU2afyjqIvqhMrIn n5gbSBXdPhYvAOqjRW8aCHMyXO26BdNvBdUwEXQ6OEYmGJ4cSXfjUF0QRYJ5LXudLLSzYTMmR7iFXtKg RKJgZxBecQrtZW8HRgDvM8CubfLnlIDdEBFhVRYENb0+AIiqjqGtImhYHyOlYDXeb6SrULs1JT4FXRKp HEvjRY4QUJRnnE2vACzhCG8IQtYqDlHfJUVGDvDxA4 1vhKCbJGf8Q6HaAjTnNYUsVemwNMSlFEeeDkYeYXWvGtOpBObiSI6+ID4+HLzcBV2IDFhzgpHfUCVtMi 2UDZTqEVBtTQ5pWCJjCCHoF5O8rSnsBNSGGrCgK5fvcbajIX7gCFSiO429gHtxohLmSBF5ZERwBm8RVW RuJBL8MADzjMGeLhsjTRGACQyhIN2WeRXePUA6gW2r VRqvLZNqYMZyI3fJOxFwzJytYR13uNewlcYjvLLqPVm+Yh1PVO2ka3YoEZe0drPkBDyyMTLfWFueJYKv DHQqQPByHJQ7VWX1PGVBHcFzTASkYUOdZJnqJSMhIBJvap7OGWDcNBOoUWKnMsBoXWDqQJQtBDqxNTRs WSLcMyc5GZCcDHIbOS3EApKiATHrOMGgHIfhTTWyHY Tijr0RHFWxSETtPdQ5DnVfLRAbHMIbOHmiPPFkTLJdJbb0JRSmARDjQI4ZDjGbNOChQYdrKksfBGPySB Cgie2EIYDzNHYaJGF2FgAqIABtOZCaEKpxCMMbKKKkMREySPEwHFVlXL7SWlTsNXGpMEBnYsBuYAWkJF Rhqo5OHPBkIVUuMRUjOQJoJADeCTDiXVmcSBMpTPS0 ToYiOKRzFAMmCN8BNoJlFQKxPOw3UyvnUIDoUCGtsh8USGEdFEEgUmj1MRPjGSTyLGHgBXdhQHWyTHZ1 BRD7DNVbYYDvNS1LAxXqYFClLRmwYaXsGUCsZSIoeb0SJNIbWQAjCVVuRuKuXQKvQMQnUGakOIOqZNFt GoJdVTBpCZApLI0JXkHrBYIzOoU1ZOVqSHTlFRQnca 6BGBIlONQfOPT3SgXsFKMeMRZeKHaqTYNzKVHmQEB8PPJdJPDhHQ6IOqMqFWRhWsW1BOIfZUBjJWOtlp 8TCVCaYVJqQmjnTKLeDUBlVCJcKDaiDOLjCNKbIFOdCEFsOXJdVD5HNoVtWDGmRgYsWRXjMOUyAGXfmn 6MZWDnFTWfLSM0WEBzSRUcXAPuTPbnOAUvOCG9Wgh1 YIGlTGFaHK9OAoFdTSXxWzC4DjhbQCOsUYLdyj2BGWMtKLRsHFBdOTPzXPDfVIObAKlyEOVaUAJ7PjYa WNGiVJJaMK1KWoTtJLHoLcN2LvDrNZWyOAPlhx8OSMImGNJaGAM7LVFsMMNqKWLeWBfvZLAuWXQeYUd0 VFGqJUFcQL3UWuWxKHNjQkVcCKfwEYUkTHXali7RGI GuFOBnINK1ZDIiEGDwYBHzLGwxMDMsGILvZMf2SGZmDNBqYP9GHjTmXORjUzPpYCUhLBMmXXHtpx8EIX VoWJDpHvLlDUUyINAmTAGhKOhaDDTgDQYbCWb6QXReXJDrEA4RKsAgLAWdBiQ9TlKuNPGhJKQkzw3PmZ GzkHjuse6AKBnNLv9KpMwtXOGjXHihMk1lwDD4DGSb RQLXWs5StnGuOZLpSRBYGKejQKIoMCZ0ZaDqGZFeZZicOAZjFUu3USGrUpCrDwUaWAOdXGL3NyU7JZu5 T3I8HGNjHNHoC7KmDgMlPMZ1ZQD2D5QnBiO8VzY+LA6qDWd+Hy7Lp6UazpN9urZbRXxrBqu9IW4HWPFG T0YNCg== ID Date Data Source [id number] 03/10/2020 12:20:35 PM [facility] Name Value Range Interpretation Code Description Data Maria Antonia rce(s) Supporting Document(s) Glucose [Mass/volume] in Capillary blood by Glucometer 191 mg/dL 70- 140 H [facility] ID Date Data Source [id number] 03/10/2020 08:24:44 AM [facility] Name Value Range Interpretation Code Description Data Maria Antonia rce(s) Supporting Document(s) Glucose [Mass/volume] in Capillary blood by Glucometer 140 mg/dL 70- 140 [facility] ID Date Data Source [id number] 03/10/2020 05:13:44 AM [facility] Name Value Range Interpretation Code Description Data Maria Antonia rce(s) Supporting Document(s) Prothrombin time (PT) 25.7 s 12.5-14.9 H [facility] INR in Platelet poor plasma by Coagulation assay 2.29 [facility] Routine intensity oral anticoagulation I NR is typically 2.0-3.0. Target INR must be clinically individualized. ID Date Data Source [id number] 03/10/2020 05:17:59 AM [facility] Name Value Range Interpretation Code Description Data Maria Antonia rce(s) Supporting Document(s) Bilirubin.direct [Mass/volume] in Serum or Plasma 0.4 mg/dL <0.3 H [facility] ID Date Data Source [id number] 03/10/2020 05:17:59 AM [facility] Value Range Interpretation Code Description Data Maria Antonia rce(s) Supporting Document(s) Albumin [Mass/volume] in Serum or Plasma by Bromocresol green (BCG) dye binding method 1.7 g/dL 3.5-5.2 [facility] Bilirubin.total [Mass/volume] in Serum or Plasma 1.1 mg/dL <1.2 [facility] Calcium [Mass/volume] in Serum or Plasma 7.8 mg/dL 8.8-10.2 L [facility] Chloride [Moles/volume] in Serum or Plasma 104 mmol/L 98-107 [facility] Creatinine [Mass/volume] in Serum or Plasma 0.79 mg/dL 0.70-1.20 [facility] Glucose [Mass/volume] in Serum or Plasma 269 mg/dL 70-140 H [facility] Alkaline phosphatase [Enzymatic activity/volume] in Serum or Plasma 76 U/L 40-129 [facility] Potassium [Moles/volume] in Serum or Plasma 4.0 mmol/L 3.4-5.1 [facility] Protein [Mass/volume] in Serum or Plasma 5.1 g/dL 6.4-8.3 L [facility] Sodium [Moles/volume] in Serum or Plasma 132 mmol/L 136-145 L [facility] Aspartate aminotransferase [Enzymatic activity/volume] in Serum or Plasma 151 U/L <40 H [facility] Urea nitrogen [Mass/volume] in Serum or Plasma 15 mg/dL 8-23 [facility] Osmolality of Serum or Plasma by calculation 284 mosm/kg 275-300 [facility] Creatinine/Urea nitrogen [Mass Ratio] in Serum or Plasma 19 [facility] Bicarbonate [Moles/volume] in Serum 23 mmol/L 22-29 [facility] Alanine aminotransferase [Enzymatic activity/volume] in Seru m or Plasma 262 U/L <41 H [facility] Anion gap 3 in Serum or Plasma 5 mmol/L 8-15 L [facility] Glomerular filtration rate/1.73 sq M pre dicted among non-blacks [Volume Rate/Area] in Serum or Plasma by Creatinine-based formula (MDRD) >6 0 [facility] Glomerular filtration rate/1.73 sq M pre dicted among blacks [Volume Rate/Area] in Serum or Plasma by Creatinine-based formula (MDRD) >60 [facility] ID Date Data Source [id number] 03/10/2020 05:17:59 AM [facility] Value Range Interpretation Code Description Data Maria Antonia rce(s) Supporting Document(s) Creatine kinase [Enzymatic activity/volume] in Serum or Plasma 1 469 U/L 20-200 H [facility] ID Date Data Source [id number] 03/09/2020 09:27:30 PM [facility] Value Range Interpretation Code Description Data Maria Antonia rce(s) Supporting Document(s) Glucose [Mass/volume] in Capillary blood by Glucometer 211 mg/dL 70- 140 H [facility] ID Date Data Source [id number] 03/09/2020 06:39:34 PM [facility] Value Range Interpretation Code Description Data Maria Antonia rce(s) Supporting Document(s) Glucose [Mass/volume] in Capillary blood by Glucometer 273 mg/dL 70- 140 H [facility] ID Date Data Source [id number] 03/09/2020 05:42:11 PM [facility] Name Value Range Interpretation Code Description Data Maria Antonia rce(s) Supporting Document(s) Glucose [Mass/volume] in Capillary blood by Glucometer 256 mg/dL 70- 140 [facility] ID Date Data Source [id number] 03/09/2020 01:15:52 PM [facility] Value Range Interpretation Code Description Data Maria Antonia rce(s) Supporting Document(s) Glucose [Mass/volume] in Capillary blood by Glucometer 236 mg/dL 70- 140 [facility] ID Date Data Source [id number] 03/09/2020 12:00:29 PM [facility] Value Range Interpretation Code Description Data Maria Antonia rce(s) Supporting Document(s) Glucose [Mass/volume] in Capillary blood by Glucometer 206 mg/dL 70- 140 [facility] ID Date Data Source [id number] 03/09/2020 08:08:29 AM [facility] Value Range Interpretation Code Description Data Maria Antonia rce(s) Supporting Document(s) Glucose [Mass/volume] in Capillary blood by Glucometer 172 mg/dL 70- 140 [facility] ID Date Data Source [id number] 03/09/2020 05:10:42 AM [facility] Value Range Interpretation Code Description Data Maria Antonia rce(s) Supporting Document(s) Leukocytes [#/volume] in Blood by Automated count 5.8 10*3/uL 4-10 [facility] Erythrocytes [#/volume] in Blood by Automated count 3.22 10*6/uL 4.6- 6.1 L [facility] Hemoglobin [Mass/volume] in Blood 11.1 g/dL 13.5-18 L [facility] Hematocrit [Volume Fraction] of Blood by Automated count 32.7 % 4 1-53 L [facility] Erythrocyte mean corpuscular volume [Entitic volume] b y Automated count 101.6 fL 80-96 H [facility] Erythrocyte mean corpuscular hemoglobin [Entitic mass] by Automated count 34.3 pg 27-33 H [facility] Erythrocyte mean corpuscular hemoglobin concentration [Mass/volume] by Automated count 33.8 g/dL 32.0-36.0 [facility] Erythrocyte distribution width [Ratio] by Automated count 17.3 % 11.5-14.5 [facility] Platelets [#/volume] in Blood by Automated count 97 10*3/uL 150-400 L [facility] ID Date Data Source [id number] 03/09/2020 05:22:54 AM [facility] Name Value Range Interpretation Code Description Data Maria Antonia rce(s) Supporting Document(s) Prothrombin time (PT) 26.1 s 12.5-14.9 H [facility] INR in Platelet poor plasma by Coagulation assay 2.34 [facility] Routine intensity oral anticoagulation I NR is typically 2.0-3.0. Target INR must be clinically individualized. ID Date Data Source [id number] 03/09/2020 05:34:32 AM [facility] Value Range Interpretation Code Description Data Maria Antonia rce(s) Supporting Document(s) Bilirubin.direct [Mass/volume] in Serum or Plasma 0.5 mg/dL <0.3 H [facility] ID Date Data Source [id number] 03/09/2020 05:34:32 AM [facility] Value Range Interpretation Code Description Data Maria Antonia rce(s) Supporting Document(s) Albumin [Mass/volume] in Serum or Plasma by Bromocresol green (BCG) dye binding method 1.9 g/dL 3.5-5.2 [facility] Bilirubin.total [Mass/volume] in Serum or Plasma 1.6 mg/dL <1.2 [facility] Calcium [Mass/volume] in Serum or Plasma 7.8 mg/dL 8.8-10.2 L [facility] Chloride [Moles/volume] in Serum or Plasma 107 mmol/L 98-107 [facility] Creatinine [Mass/volume] in Serum or Plasma 0.82 mg/dL 0.70-1.20 [facility] Glucose [Mass/volume] in Serum or Plasma 228 mg/dL 70-140 H [facility] Alkaline phosphatase [Enzymatic activity/volume] in Serum or Plasma 72 U/L 40-129 [facility] Potassium [Moles/volume] in Serum or Plasma 3.7 mmol/L 3.4-5.1 [facility] Protein [Mass/volume] in Serum or Plasma 5.3 g/dL 6.4-8.3 L [facility] Sodium [Moles/volume] in Serum or Plasma 132 mmol/L 136-145 [facility] Aspartate aminotransferase [Enzymatic activity/volume] in Serum or Plasma 253 U/L <40 H [facility] Urea nitrogen [Mass/volume] in Serum or Plasma 15 mg/dL 8-23 [facility] Osmolality of Serum or Plasma by calculation 283 mosm/kg 275-300 [facility] Creatinine/Urea nitrogen [Mass Ratio] in Serum or Plasma 19 [facility] Bicarbonate [Moles/volume] in Serum 20 mmol/L 22-29 L [facility] Alanine aminotransferase [Enzymatic activity/volume] in Seru m or Plasma 339 U/L <41 H [facility] Anion gap 3 in Serum or Plasma 6 mmol/L 8-15 L [facility] Glomerular filtration rate/1.73 sq M pre dicted among non-blacks [Volume Rate/Area] in Serum or Plasma by Creatinine-based formula (MDRD) >6 0 [facility] Glomerular filtration rate/1.73 sq M pre dicted among blacks [Volume Rate/Area] in Serum or Plasma by Creatinine-based formula (MDRD) >60 [facility] ID Date Data Source [id number] 03/09/2020 05:49:42 AM [facility] Value Range Interpretation Code Description Data Maria Antonia rce(s) Supporting Document(s) Creatine kinase [Enzymatic activity/volume] in Serum or Plasma 3 003 U/L 20-200 H [facility] Confirmed ID Date Data Source [id number] 03/08/2020 09:20:12 PM [facility] Value Range Interpretation Code Description Data Maria Antonia rce(s) Supporting Document(s) Glucose [Mass/volume] in Capillary blood by Glucometer 308 mg/dL 70- 140 H [facility] ID Date Data Source [id number] 03/08/2020 05:13:08 PM [facility] Value Range Interpretation Code Description Data Maria Antonia rce(s) Supporting Document(s) Glucose [Mass/volume] in Capillary blood by Glucometer 236 mg/dL 70- 140 H [facility] ID Date Data Source [id number] 03/08/2020 11:58:35 AM [facility] Value Range Interpretation Code Description Data Maria Antonia rce(s) Supporting Document(s) Glucose [Mass/volume] in Capillary blood by Glucometer 285 mg/dL 70- 140 H [facility] ID Date Data Source [id number] 03/08/2020 08:17:03 AM [facility] Hospital Name Value Range Interpretation Code Description Data Maria Antonia rce(s) Supporting Document(s) Glucose [Mass/volume] in Capillary blood by Glucometer 255 mg/dL 70- 140 H [facility] ID Date Data Source [id number] 03/08/2020 08:03:03 AM [facility] Name Value Range Interpretation Code Description Data Maria Antonia rce(s) Supporting Document(s) [facility] [id number]/PMUhlGPFnv8NhPFpjNRl4EUyhEHMwZ2PlCLV6xO9tXLO2KNfNJbIjElNrGVB2 lbm YqVuxELoKlDSAhUmcPEhTcWZqmAgxteYAdPZ1VoHU2LKCaF82mPWBrPKVyO1VqJUHbXcM+Ji8VPINkbT PgPU6HXisL8O1pB0tKAv4+SjsxzcaawcCoOVVUq6mlqYL1sTQV2zuoh71VhPNAG1B9SaI3BeuFU5xZKO wJA4dbJqzB0rcCQnOID4+/k4ycHQ9d71nBkPRakmF/ k61WdpZGszZ//8LDp4sv5ws7r+pd7rAzwKgVo8O+U9tfv/Cmr7Z+slQ6m+gkq1IJPmTyaRzZkzlKNz9W 52Oq0HAU1gQV4lLUN7u0fpRN3FO9//H1a9X/aKe01e6sVV8Vf+3Vqu/qd9FBcDz7tj9e6XT3iMKjfxHw 18uD9eu29h7laXoEVyoV/ZmWhxxZKeXDdNHNlNmmiT m6X470s3Ek7ZIJtIKu5uaigTjmanXA/MbtX8ea25/6YDaU3F0cOsvVgorZn1EMkFYcqxAvn5CgcGwZkd saf4ZSGa2SyTVaABtUamT9LbMEonZhXFCf4r1Jm+m+Izc6Nu2I99Sg8PlOQ9OU+7LKUY3N59gFCEnvzx yT4HZZ0Y6/q46647M1wlB26Y7UMY+6o580d7J1zRdI [file] [id number] ID Date Data Source [id number] 03/08/2020 07:46:34 AM [facility] US ABDOMEN LIMITED [id number] RESULTInte rpreted by:Kerri Adhikari, MDPROCEDURE INFORMATION: Exam: US Abdomen, Limited; Right Upper Quadrant Exam date and time: 03/08/2020 5:35 AM Age: 64 years old Clinical indication: Screening exam; Other: Evaluate ruq TECHNIQUE: Imaging protocol: US abdomen. Real time ultrasound with image documentation. Limited exam focused on the right upper quadrant. COMPARISON: US ABDOMEN LIMITED [id number] PORTABLE 03/06/2020 11:29 PM FINDINGS: Liver: The [...] rce(s) Supporting Document(s) ID Date Data Source [id number] 03/09/2020 04:07:16 PM [facility] Name Value Range Interpretation Code Description Data Maria Antonia rce(s) Supporting Document(s) Liver kidney microsomal 1 Ab [Units/volume] in Serum 0.0-2 0.0 [facility] (NOTE) Neg ative 0.0 - 20.0 Equivocal 20.1 - 24.9 Positive >24.9LKM type 1 antibodies are detected in patients withautoimmune hepatitis type 2 and in up to 8% ofpatients with chronic HCV infection.Performed At: [facility] [address] [id number] Bee MD Ph:[phone] ID Date Data Source [id number] 03/09/2020 09:05:59 PM [facility] Name Value Range Interpretation Code Description Data Maria Antonia rce(s) Supporting Document(s) IgG [Mass/volume] in Serum or Plasma 1984 mg/dL 603-1613 H [facility] IgG subclass 1 [Mass/volume] in Serum 1143 mg/dL 248-810 H [facility] IgG subclass 2 [Mass/volume] in Serum 316 mg/dL 130-555 [facility] IgG subclass 3 [Mass/volume] in Serum 74 mg/dL 15-102 [facility] IgG subclass 4 [Mass/volume] in Serum 97 mg/dL 2-96 H [facility] (NOTE)Performed At: [facility] [id number] [place], [place] [id number] Sanjai MD Ph:[phone] At: [facility] [address] [id number] Bee MD Ph:[phone] ID Date Data Source [id number] 03/09/2020 10:05:41 PM [facility] Name Value Range Interpretation Code Description Data Maria Antonia rce(s) Supporting Document(s) Hepatitis C virus RNA [Units/volume] (vi ral load) in Serum or Plasma by Probe and target amplification method [facility] Hepatitis C virus RNA [log units/volume] (viral load) in Serum or Plasma by Probe and target amplification method [facility] Service comment [facility] (NOTE)The quantitative range of this ass ay is 15 IU/mL to 100 millionIU/mL.Performed At: [facility] [address] [id number] Bee MD Ph:[phone] ID Date Data Source [id number] 03/08/2020 08:17:03 AM [facility] Value Range Interpretation Code Description Data Maria Antonia rce(s) Supporting Document(s) Hepatitis A virus IgM Ab [Presence] in Serum or Plasma by Im munoassay Non Reactive [facility] No acute infection, susceptible to infec tion. Hepatitis B virus core IgM Ab [Presence] in Serum or Plasma by Immunoassay Non Reactive [facility] IgM antibodies to HBc were not detected, does not exclude the possibility of exposure to HBV. Hepatitis C virus Ab [Presence] in Serum or Plasma by Immuno assay Non Reactive A [facility] Past or current Hepatitis C infection. S pecimen forwarded to reference laboratory for quantitative HCV RNA testing. Hepatitis B virus surface Ag [Presence] in Serum or Plasma b y Immunoassay Non Reactive [facility] No active or previous infection. Suscept ible to infection. ID Date Data Source [id number] 03/08/2020 10:30:48 AM [facility] Name Value Range Interpretation Code Description Data Maria Antonia rce(s) Supporting Document(s) Hepatitis B virus surface Ab [Units/volume] in Serum o r Plasma by Immunoassay 18 m[IU]/mL >11.4 [facility] ReactiveImmunity due to hepatitis B immu nization or natural infection. ID Date Data Source [id number] 03/09/2020 01:27:49 PM [facility] Value Range Interpretation Code Description Data Maria Antonia rce(s) Supporting Document(s) Neutrophil cytoplasmic Ab [Presence] in Serum by Immunofluoresce nce Negative [facility] ID Date Data Source [id number] 03/09/2020 02:21:54 PM [facility] Value Range Interpretation Code Description Data Maria Antonia rce(s) Supporting Document(s) Mitochondria Ab [Units/volume] in Serum Negative [facility] ID Date Data Source [id number] 03/09/2020 02:21:54 PM [facility] Value Range Interpretation Code Description Data Maria Antonia rce(s) Supporting Document(s) Actin smooth muscle IgG Ab [Units/volume] in Serum Negativ e [facility] ID Date Data Source [id number] 03/08/2020 07:37:50 AM [facility] Value Range Interpretation Code Description Data Maria Antonia rce(s) Supporting Document(s) Prothrombin time (PT) 30.9 s 12.5-14.9 H [facility] INR in Platelet poor plasma by Coagulation assay 2.89 [facility] Routine intensity oral anticoagulation I NR is typically 2.0-3.0. Target INR must be clinically individualized. ID Date Data Source [id number] 03/08/2020 08:10:23 AM [facility] Value Range Interpretation Code Description Data Maria Antonia rce(s) Supporting Document(s) Acetaminophen [Mass/volume] in Serum or Plasma 10.0-30.0 L [facility] ID Date Data Source [id number] 03/08/2020 08:10:23 AM [facility] Value Range Interpretation Code Description Data Maria Antonia rce(s) Supporting Document(s) Alanine aminotransferase [Enzymatic activity/volume] in Seru m or Plasma 432 U/L <41 H [facility] ID Date Data Source [id number] 03/08/2020 08:10:23 AM [facility] Value Range Interpretation Code Description Data Maria Antonia rce(s) Supporting Document(s) Aspartate aminotransferase [Enzymatic activity/volume] in Serum or Plasma 469 U/L <40 H [facility] ID Date Data Source [id number] 03/08/2020 08:10:23 AM [facility] Value Range Interpretation Code Description Data Maria Antonia rce(s) Supporting Document(s) Alkaline phosphatase [Enzymatic activity/volume] in Serum or Plasma 76 U/L 40-129 [facility] ID Date Data Source [id number] 03/08/2020 08:10:23 AM [facility] Value Range Interpretation Code Description Data Maria Antonia rce(s) Supporting Document(s) Albumin [Mass/volume] in Serum or Plasma by Bromocresol green (BCG) dye binding method 1.9 g/dL 3.5-5.2 [facility] S[facility] [Moles/volume] in Serum or Plasma 130 mmol/L 136-145 L [facility] Potassium [Moles/volume] in Serum or Plasma 4.0 mmol/L 3.4-5.1 [facility] Chloride [Moles/volume] in Serum or Plasma 104 mmol/L 98-107 [facility] Bicarbonate [Moles/volume] in Serum 19 mmol/L 22-29 [facility] Glucose [Mass/volume] in Serum or Plasma 270 mg/dL 70-140 H [facility] Urea nitrogen [Mass/volume] in Serum or Plasma 13 mg/dL 8-23 [facility] Creatinine [Mass/volume] in Serum or Plasma 0.73 mg/dL 0.70-1.20 [facility] Calcium [Mass/volume] in Serum or Plasma 7.9 mg/dL 8.8-10.2 [facility] Phosphate [Mass/volume] in Serum or Plasma 2.3 mg/dL 2.5-4.5 [facility] Glomerular filtration rate/1.73 sq M pre dicted among non-blacks [Volume Rate/Area] in Serum or Plasma by Creatinine-based formula (MDRD) >6 0 [facility] Glomerular filtration rate/1.73 sq M pre dicted among blacks [Volume Rate/Area] in Serum or Plasma by Creatinine-based formula (MDRD) >60 [facility] ID Date Data Source [id number] 03/08/2020 08:10:23 AM [facility] Value Range Interpretation Code Description Data Maria Antonia rce(s) Supporting Document(s) Bilirubin.total [Mass/volume] in Serum or Plasma 2.2 mg/dL <1.2 H [facility] ID Date Data Source [id number] 03/08/2020 08:10:23 AM [facility] Value Range Interpretation Code Description Data Maria Antonia rce(s) Supporting Document(s) Ferritin [Mass/volume] in Serum or Plasma 170 ng/ml 30-400 [facility] ID Date Data Source [id number] 03/08/2020 08:10:23 AM [facility] Value Range Interpretation Code Description Data Mraia Antonia rce(s) Supporting Document(s) Bilirubin.direct [Mass/volume] in Serum or Plasma 0.7 mg/dL <0.3 H [facility] ID Date Data Source [id number] 03/08/2020 08:10:23 AM [facility] Value Range Interpretation Code Description Data Maria Antonia rce(s) Supporting Document(s) Protein [Mass/volume] in Serum or Plasma 5.3 g/dL 6.4-8.3 L [facility] ID Date Data Source [id number] 03/08/2020 08:10:23 AM [facility] Value Range Interpretation Code Description Data Maria Antonia rce(s) Supporting Document(s) Salicylates [Mass/volume] in Serum or Plasma 3.0-30.0 L [facility] ID Date Data Source [id number] 03/08/2020 10:14:48 AM [facility] Value Range Interpretation Code Description Data Maria Antonia rce(s) Supporting Document(s) Alpha 1 antitrypsin [Mass/volume] in Serum or Plasma 110 mg/dl 90-20 0 [facility] ID Date Data Source [id number] 03/08/2020 10:14:48 AM [facility] Value Range Interpretation Code Description Data Maria Antonia rce(s) Supporting Document(s) Ceruloplasmin [Mass/volume] in Serum or Plasma 16 mg/dl 15-30 [facility] ID Date Data Source [id number] 03/08/2020 11:28:28 AM [facility] Value Range Interpretation Code Description Data Maria Antonia rce(s) Supporting Document(s) Natriuretic peptide.B prohormone N-Terminal [Mass/volu me] in Serum or Plasma 805 pg/mL <125 H [facility] ID Date Data Source [id number] 03/08/2020 11:50:41 AM [facility] Name Value Range Interpretation Code Description Data Maria Antonia rce(s) Supporting Document(s) Fibrin D-dimer FEU [Mass/volume] in Platelet poor plas ma by Immunoassay 0.57 ug/mL{FEU} <0.50 [facility] ID Date Data Source [id number] 03/08/2020 03:01:46 PM [facility] Value Range Interpretation Code Description Data Maria Antonia rce(s) Supporting Document(s) Lactate dehydrogenase [Enzymatic activit y/volume] in Serum or Plasma by Lactate to pyruvate reaction 1330 U/L 122-225 H [facility] Confirmed ID Date Data Source [id number] 03/08/2020 05:17:56 AM [facility] Value Range Interpretation Code Description Data Maria Antonia rce(s) Supporting Document(s) Leukocytes [#/volume] in Blood by Automated count 7.0 10*3/uL 4-10 [facility] Erythrocytes [#/volume] in Blood by Automated count 3.33 10*6/uL 4.6- 6.1 [facility] Hemoglobin [Mass/volume] in Blood 11.4 g/dL 13.5-18 [facility] Hematocrit [Volume Fraction] of Blood by Automated count 33.5 % 4 1-53 [facility] Erythrocyte mean corpuscular volume [Entitic volume] b y Automated count 100.7 fL 80-96 [facility] Erythrocyte mean corpuscular hemoglobin [Entitic mass] by Automated count 34.2 pg 27-33 [facility] Erythrocyte mean corpuscular hemoglobin concentration [Mass/volume] by Automated count 34.0 g/dL 32.0-36.0 [facility] E[facility] distribution width [Ratio] by Automated count 16.6 % 11.5-14.5 [facility] Platelets [#/volume] in Blood by Automated count 90 10*3/uL 150-400 L [facility] ID Date Data Source [id number] 03/08/2020 05:34:12 AM [facility] Value Range Interpretation Code Description Data Maria Antonia rce(s) Supporting Document(s) Albumin [Mass/volume] in Serum or Plasma by Bromocresol green (BCG) dye binding method 2.0 g/dL 3.5-5.2 [facility] Bilirubin.total [Mass/volume] in Serum or Plasma 2.2 mg/dL <1.2 H [facility] Calcium [Mass/volume] in Serum or Plasma 7.8 mg/dL 8.8-10.2 L [facility] Chloride [Moles/volume] in Serum or Plasma 107 mmol/L 98-107 [facility] Creatinine [Mass/volume] in Serum or Plasma 0.71 mg/dL 0.70-1.20 [facility] Glucose [Mass/volume] in Serum or Plasma 274 mg/dL 70-140 H [facility] Alkaline phosphatase [Enzymatic activity/volume] in Serum or Plasma 80 U/L 40-129 [facility] Potassium [Moles/volume] in Serum or Plasma 4.0 mmol/L 3.4-5.1 [facility] Protein [Mass/volume] in Serum or Plasma 5.2 g/dL 6.4-8.3 L [facility] Sodium [Moles/volume] in Serum or Plasma 133 mmol/L 136-145 [facility] Aspartate aminotransferase [Enzymatic activity/volume] in Serum or Plasma 501 U/L <40 H [facility] Urea nitrogen [Mass/volume] in Serum or Plasma 14 mg/dL 8-23 [facility] Osmolality of Serum or Plasma by calculation 286 mosm/kg 275-300 [facility] Creatinine/Urea nitrogen [Mass Ratio] in Serum or Plasma 20 [facility] Bicarbonate [Moles/volume] in Serum 19 mmol/L 22-29 L [facility] Alanine aminotransferase [Enzymatic activity/volume] in Seru m or Plasma 441 U/L <41 H [facility] Anion gap 3 in Serum or Plasma 7 mmol/L 8-15 L [facility] Glomerular filtration rate/1.73 sq M pre dicted among non-blacks [Volume Rate/Area] in Serum or Plasma by Creatinine-based formula (MDRD) >6 0 [facility] Glomerular filtration rate/1.73 sq M pre dicted among blacks [Volume Rate/Area] in Serum or Plasma by Creatinine-based formula (MDRD) >60 [facility] ID Date Data Source [id number] 03/07/2020 09:33:42 PM [facility] Value Range Interpretation Code Description Data Maria Antonia rce(s) Supporting Document(s) Glucose [Mass/volume] in Capillary blood by Glucometer 300 mg/dL 70- 140 [facility] ID Date Data Source [id number] 03/07/2020 09:33:42 PM [facility] Value Range Interpretation Code Description Data Maria Antonia rce(s) Supporting Document(s) Glucose [Mass/volume] in Capillary blood by Glucometer 314 mg/dL 70- 140 [facility] ID Date Data Source [id number] 03/07/2020 06:05:04 PM [facility] Value Range Interpretation Code Description Data Maria Antonia rce(s) Supporting Document(s) Glucose [Mass/volume] in Capillary blood by Glucometer 264 mg/dL 70- 140 [facility] ID Date Data Source [id number] 03/07/2020 04:39:38 PM [facility] Value Range Interpretation Code Description Data Maria Antonia rce(s) Supporting Document(s) Glucose [Mass/volume] in Capillary blood by Glucometer 233 mg/dL 70- 140 [facility] ID Date Data Source [id number] 03/07/2020 11:49:44 AM [facility] Value Range Interpretation Code Description Data Maria Antonia rce(s) Supporting Document(s) Glucose [Mass/volume] in Capillary blood by Glucometer 326 mg/dL 70- 140 [facility] ID Date Data Source [id number] 03/07/2020 08:33:10 AM [facility] Value Range Interpretation Code Description Data Maria Antonia rce(s) Supporting Document(s) Glucose [Mass/volume] in Capillary blood by Glucometer 315 mg/dL 70- 140 [facility] ID Date Data Source [id number] 03/07/2020 01:46:37 AM [facility] Value Range Interpretation Code Description Data Maria Antonia rce(s) Supporting Document(s) History and Physical [facility] [id number] [facility] [file] 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 [file] [id number] ID Date Data Source [id number] 03/07/2020 03:17:54 AM [facility] Name Value Range Interpretation Code Description Data Maria Antonia rce(s) Supporting Document(s) Ethanol [Mass/volume] in Serum or Plasma Negative [facility] ID Date Data Source [id number] 03/07/2020 02:17:20 AM [facility] Name Value Range Interpretation Code Description Data Maria Antonia rce(s) Supporting Document(s) Leukocytes [#/volume] in Blood by Automated count 6.8 10*3/uL 4-10 [facility] Erythrocytes [#/volume] in Blood by Automated count 3.38 10*6/uL 4.6- 6.1 L [facility] Hemoglobin [Mass/volume] in Blood 11.5 g/dL 13.5-18 L [facility] Hematocrit [Volume Fraction] of Blood by Automated count 33.7 % 4 1-53 L [facility] Erythrocyte mean corpuscular volume [Entitic volume] by Auto mated count 99.8 fL 80-96 H [facility] Erythrocyte mean corpuscular hemoglobin [Entitic mass] by Automated count 34.0 pg 27-33 H [facility] Erythrocyte mean corpuscular hemoglobin concentration [Mass/volume] by Automated count 34.0 g/dL 32.0-36.0 [facility] Erythrocyte distribution width [Ratio] by Automated count 16.3 % 11.5-14.5 H [facility] Platelets [#/volume] in Blood by Automated count 82 10*3/uL 150-400 L [facility] ID Date Data Source [id number] 03/07/2020 02:52:13 AM [facility] Name Value Range Interpretation Code Description Data Maria Antonia rce(s) Supporting Document(s) Albumin [Mass/volume] in Serum or Plasma by Bromocresol green (BCG) dye binding method 1.9 g/dL 3.5-5.2 L [facility] al Bilirubin.total [Mass/volume] in Serum or Plasma 1.8 mg/dL <1.2 H [facility] Calcium [Mass/volume] in Serum or Plasma 7.8 mg/dL 8.8-10.2 [facility] Chloride [Moles/volume] in Serum or Plasma 103 mmol/L 98-107 [facility] Creatinine [Mass/volume] in Serum or Plasma 0.78 mg/dL 0.70-1.20 [facility] Glucose [Mass/volume] in Serum or Plasma 336 mg/dL 70-140 H [facility] Alkaline phosphatase [Enzymatic activity/volume] in Serum or Plasma 85 U/L 40-129 [facility] Potassium [Moles/volume] in Serum or Plasma 4.5 mmol/L 3.4-5.1 [facility] Protein [Mass/volume] in Serum or Plasma 5.3 g/dL 6.4-8.3 [facility] Sodium [Moles/volume] in Serum or Plasma 133 mmol/L 136-145 L [facility] Aspartate aminotransferase [Enzymatic activity/volume] in Serum or Plasma 852 U/L <40 H [facility] Confirmed Urea nitrogen [Mass/volume] in Serum or Plasma 14 mg/dL 8-23 [facility] Osmolality of Serum or Plasma by calculation 289 mosm/kg 275-300 [facility] Creatinine/Urea nitrogen [Mass Ratio] in Serum or Plasma 18 [facility] Bicarbonate [Moles/volume] in Serum 22 mmol/L 22-29 [facility] Alanine aminotransferase [Enzymatic activity/volume] in Seru m or Plasma 505 U/L <41 H [facility] Anion gap 3 in Serum or Plasma 9 mmol/L 8-15 [facility] Glomerular filtration rate/1.73 sq M pre dicted among non-blacks [Volume Rate/Area] in Serum or Plasma by Creatinine-based formula (MDRD) >6 0 [facility] Glomerular filtration rate/1.73 sq M pre dicted among blacks [Volume Rate/Area] in Serum or Plasma by Creatinine-based formula (MDRD) >60 [facility] ID Date Data Source [id number] 03/07/2020 10:12:22 AM [facility] Name Value Range Interpretation Code Description Data Maria Antonia rce(s) Supporting Document(s) Creatine kinase [Enzymatic activity/volume] in Serum or Plasma 1 4700 U/L 20-200 H [facility] Confirmed ID Date Data Source [id number] 03/07/2020 05:41:54 AM [facility] Name Value Range Interpretation Code Description Data Maria Antonia rce(s) Supporting Document(s) Color of Urine [facility] Clarity of Urine [facility] Specific gravity of Urine by Refractometry automated 1.005 1.003 -1.030 [facility] pH of Urine by Automated test strip 5.0 5.0-8.0 [facility] Protein [Mass/volume] in Urine by Automated test strip Neg [facility] Glucose [Mass/volume] in Urine by Automated test strip Neg [facility] Ketones [Mass/volume] in Urine by Automated test strip Neg [facility] Bilirubin.total [Presence] in Urine by Automated test strip Negative [facility] Hemoglobin [Presence] in Urine by Automated test strip Neg ative A [facility] Leukocyte esterase [Presence] in Urine by Automated test strip Negative [facility] Nitrite [Presence] in Urine by Automated test strip Negati ve [facility] Leukocytes [#/area] in Urine sediment by Automated count 1 /HPF 0 -5 [facility] Erythrocytes [#/area] in Urine sediment by Automated count 6 /HPF 0-3 H [facility] Bacteria [#/area] in Urine sediment by Automated count Non e A [facility] Epithelial cells.squamous [#/area] in Urine sediment by Automate d count None A [facility] Mucus [#/area] in Urine sediment by Microscopy low power field None [facility] S[place]mat[place] [#/area] in Urine sediment by Microscopy high po wer field 2 /[HPF] None [facility] ID Date Data Source [id number] 03/06/2020 11:38:58 PM [facility] US ABDOMEN LIMITED [id number] RESULTInte rpreted by:BRANDON FigueroaPROCEDURE INFORMATION: Exam: US [...] Data Source [id number] 03/06/2020 10:57:[address] [facility] Name Value Range Interpretation Code Description Data Maria Antonia rce(s) Supporting Document(s) SARS-CoV-[address] [facility] This lab was ordered by [facility] and reported by [facility]. 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 [facility] Patient has symptoms related to condition [facility] When did you start to experience these symptoms [Date and time] [Phen X] [facility] Patient was hospitalized because of this condition [facility] patient was admitted to ICU for condition [facility] Patient resides in a congregate care setting [facility] status [facility] ID Date Data Source [id number] 03/07/2020 12:10:51 AM [facility] Name Value Range Interpretation Code Description Data Maria Antonia rce(s) Supporting Document(s) Bicarbonate [Moles/volume] in Serum 20 mmol/L 22-29 L [facility] Chloride [Moles/volume] in Serum or Plasma 103 mmol/L 98-107 [facility] Creatinine [Mass/volume] in Serum or Plasma 0.77 mg/dL 0.70-1.20 [facility] Glucose [Mass/volume] in Serum or Plasma 317 mg/dL 70-140 H [facility] Potassium [Moles/volume] in Serum or Plasma 4.9 mmol/L 3.4-5.1 [facility] Hemolyzed Sodium [Moles/volume] in Serum or Plasma 133 mmol/L 136-145 L [facility] Urea nitrogen [Mass/volume] in Serum or Plasma 13 mg/dL 8-23 [facility] Anion gap 3 in Serum or Plasma 9 mmol/L 8-15 [facility] Osmolality of Serum or Plasma by calculation 288 mosm/kg 275-300 [facility] Creatinine/Urea nitrogen [Mass Ratio] in Serum or Plasma 17 [facility] Calcium [Mass/volume] in Serum or Plasma 7.8 mg/dL 8.8-10.2 L [facility] Glomerular filtration rate/1.73 sq M pre dicted among non-blacks [Volume Rate/Area] in Serum or Plasma by Creatinine-based formula (MDRD) >6 0 [facility] Glomerular filtration rate/1.73 sq M pre dicted among blacks [Volume Rate/Area] in Serum or Plasma by Creatinine-based formula (MDRD) >60 [facility] ID Date Data Source [id number] 03/07/2020 12:29:32 AM [facility] Name Value Range Interpretation Code Description Data Maria Antonia rce(s) Supporting Document(s) Albumin [Mass/volume] in Serum or Plasma by Bromocresol green (BCG) dye binding method 1.9 g/dL 3.5-[facility].2 [facility] Bilirubin.total [Mass/volume] in Serum or Plasma 1.6 mg/dL <1.2 H [facility] Bilirubin.direct [Mass/volume] in Serum or Plasma 0.5 mg/dL <0.3 H [facility] Alkaline phosphatase [Enzymatic activity/volume] in Serum or Plasma 88 U/L 40-129 [facility] Aspartate aminotransferase [Enzymatic activity/volume] in Serum or Plasma 897 U/L <40 H [facility] Confirmed Alanine aminotransferase [Enzymatic activity/volume] in Seru m or Plasma 506 U/L <41 H [facility] Protein [Mass/volume] in Serum or Plasma 5.4 g/dL 6.4-8.3 L [facility] ID Date Data Source [id number] 03/07/2020 12:29:32 AM [facility] Name Value Range Interpretation Code Description Data Maria Antonia rce(s) Supporting Document(s) Creatine kinase [Enzymatic activity/volume] in Serum or Plasma 1 6166 U/L 20-200 H [facility] Confirmed ID Date Data Source [id number] 03/06/2020 11:56:27 PM [facility] Name Value Range Interpretation Code Description Data Maria Antonia rce(s) Supporting Document(s) Prothrombin time (PT) 45.6 s 12.5-14.9 [facility] INR in Platelet poor plasma by Coagulation assay 4.72 [facility] Routine intensity oral anticoagulation I NR is typically 2.0-3.0. Target INR must be clinically individualized. ID Date Data Source [id number] 03/06/2020 11:42:13 PM [facility] Value Range Interpretation Code Description Data Maria Antonia rce(s) Supporting Document(s) Leukocytes [#/volume] in Blood by Automated count 6.9 10*3/uL 4-10 [facility] Erythrocytes [#/volume] in Blood by Automated count 3.39 10*6/uL 4.6- 6.1 [facility] Hemoglobin [Mass/volume] in Blood 11.6 g/dL 13.5-18 L [facility] Hematocrit [Volume Fraction] of Blood by Automated count 34.0 % 4 1-53 L [facility] Erythrocyte mean corpuscular volume [Entitic volume] b y Automated count 100.4 fL 80-96 H [facility] Erythrocyte mean corpuscular hemoglobin [Entitic mass] by Automated count 34.1 pg 27-33 H [facility] Erythrocyte mean corpuscular hemoglobin concentration [Mass/volume] by Automated count 34.0 g/dL 32.0-36.0 [facility] distribution width [Ratio] by Automated count 16.4 % 11.5-14.5 [facility] Platelets [#/volume] in Blood by Automated count 79 10*3/uL 150-400 [facility] Differential cell count method - Blood [facility] Neutrophils/100 leukocytes in Blood by Automated count 65 % [facility] Lymphocytes/100 leukocytes in Blood by Automated count 16 % [facility] Monocytes/100 leukocytes in Blood by Automated count 14 % [facility] Eosinophils/100 leukocytes in Blood by Automated count 4 % [facility] Basophils/100 leukocytes in Blood by Automated count 1 % [facility] Neutrophils [#/volume] in Blood by Automated count 4.44 10*3/uL 1.8-7 .0 [facility] Lymphocytes [#/volume] in Blood by Automated count 1.09 10*3/uL 1.2-4 .0 [facility] Monocytes [#/volume] in Blood by Automated count 0.94 10*3/uL 0-0.8 H [facility] Eosinophils [#/volume] in Blood by Automated count 0.30 10*3/uL 0-0.5 [facility] Basophils [#/volume] in Blood by Automated count 0.08 10*3/uL 0-0.2 [facility] Nucleated erythrocytes/100 leukocytes [Ratio] in Blood by Automated count 0 /100{WBCs} 0-0 [facility] ID Date Data Source [id number] 03/07/2020 03:14:13 AM [facility] Name Value Range Interpretation Code Description Data Maria Antonia rce(s) Supporting Document(s) Hepatitis C virus Ab [Presence] in Serum or Plasma by Immuno assay Non Reactive A [facility] Past or current Hepatitis C infection. S desirae forwarded to reference laboratory for quantitative HCV RNA testing. ID Date Data Source [id number] 03/06/2020 09:28:51 PM [facility] Name Value Range Interpretation Code Description Data Maria Antonia rce(s) Supporting Document(s) Glucose [Mass/volume] in Capillary blood by Glucometer 293 mg/dL 70- 140 H [facility] ID Date Data Source [id number] 03/05/2020 02:20:[address] [facility] Name Value Range Interpretation Code Description Data Maria Antonia rce(s) Supporting Document(s) SARS coronavirus 2 RNA [Presence] in Res piratory specimen by ARAM with probe detection [facility] This lab was ordered by [facility] a nd reported by [facility]. Procedure Social History Code Duration Value Status Description Data Source(s ) Alcohol intake 03/06/2020 12:00:00 AM EST Ex-drinker (finding) comp leted Ex- drinker (finding) [facility] Smoking 03/06/2020 12:00:00 AM EST Unknown if ever smoked comp leted Unknown if ever smoked [facility] Vital Signs ID Date Data Source [id number] 03/17/2020 07:53:41 AM [facility] Name Value Range Interpretation Code Description Data Source(s) WEIGHT RECORDED 156 lb 156 lb [facility] Body height Measured 70 in 70 in [facility] WEIGHT RECORDED 154.6 lb 154.6 lb [facility] Body height Measured 70 in 70 in [facility] TRANSFER FROM [facility] Patient Treatment Plan of Care Planned Activity Planned Date Details Description Data Source (s) Spironolactone 100 MG Oral Tablet 03/11/2020 12:00:00 AM [facility] Furosemide 40 MG Oral Tablet 03/11/2020 12:00:00 AM [facility] dextrose 50 % IV solution 25 mL 03/06/2020 09:52:55 PM [facility] Glucagon 1 MG Injection 03/06/2020 09:52:55 PM [facility] Glucose 0.417 MG/MG Oral Gel 03/06/2020 09:52:55 PM [facility]
[2020-04-01] MEDS ORDERED: ONDANSETRON 4MG/2ML VIAL IV PRN (20:00)
[2020-04-01 20:55] VITALS: BP 120/60
[2020-04-01] MEDS ORDERED: WARFARIN SOD 2MG TAB PO SCH (21:00)
--- NOTE | 2020-04-01 21:28 | IPNPDOC ---
Text Note Date of Service The patient was seen on 04/01/20. NOTE TIME OF SERVICE 845PM is a 64 yr old w a hx of IDDM CAD HTN and TIA admitted for management of hyperosmolar hyperglycemic state, and MAYUR. Rest per 's H&P VS,Fishbone, I+O VS, Fishbone, I+O Laboratory Tests 04/01/20 16:51 Vital Signs Date Time Temp Pulse Resp B/P (MAP) Pulse Ox O2 Delivery O2 Flow Rate FiO2 04/01/20 20:00 64 16 102/56 (71) 96 Room Air 04/01/20 15:43 97.4 DAVID ROLON MD Apr 01, 2020 21:28
[2020-04-01] MEDS: NS 1,000 ML IV SCH (21:46)
[2020-04-01 21:51] LABS: CALCIUM LEVEL 10.2 MG/DL (8.8-10.2); CREATININE FOR GFR 1.84 MG/DL (0.70-1.30); GLOMERULAR FILTRATION RATE 39.9 (>49); PHOSPHORUS LEVEL 3.8 MG/DL (2.5-4.9); POTASSIUM SERUM 6.8 MEQ/L (3.5-5.1); TROPONIN I 0.08 NG/ML (< 0.10)
[2020-04-01 22:22] LABS: ESTIMATED AVERAGE GLUCOSE 355 MG/DL (60-110); HEMOGLOBIN A1c > 14.0 %
[2020-04-01] MEDS: rifAXIMin 550 MG TAB (XIFAXAN) PO SCH (22:41)
[2020-04-02] VITALS (11 sets, daily range): BP systolic 91–123; BP diastolic 50–69
[2020-04-02 00:38] LABS: CALCIUM LEVEL 9.9 MG/DL (8.8-10.2); CREATININE FOR GFR 1.67 MG/DL (0.70-1.30); GLOMERULAR FILTRATION RATE 44.6 (>49); PHOSPHORUS LEVEL 2.9 MG/DL (2.5-4.9); POTASSIUM SERUM 4.8 MEQ/L (3.5-5.1)
--- NOTE | 2020-04-02 01:54 | HPEPDOC ---
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 The history is limited as the pa esther is intermittently confused. He states that he was in his bathroom and was walking out of the door when he "blacked out" and fell backwards. He denies losing consciousness. He states that he has had episodes where he "blacks out" previously. He says that he had told his PCP before however he isn't sure. Currently the patient states that he feels confused. He denies any pain although states that he has diarrhea which is chronic. He denies any shortness of breath. In the ER the patient was vitally stable. He was found to be in a hyperosmolar hyperglycemic state with BGL of 798. He was non-ketotic. VBG obtained did not suggest a significant acidosis. He was given normal saline bolus and subcutaneous insulin. He received head CT and cervical spine CT due to his fall. There was no significant findings in his imaging. Patient was admitted to hospitalist service for further evaluation and management. PAST MEDICAL HISTORY: 1. Cirrhosis 2/2 Hepatitis C 2. Hepatitis C treated 3 years ago 3. Diabetes Mellitus type 2; insulin dependent 4. TIA 5. Endocarditis 6. Frequent falls 7. CAD s/p NE in 2018 8. HTN PAST SURGICAL HISTORY: 1. Cholecystectomy 2. Appendectomy SOCIAL HISTORY: Patient lives at home with his ex-girlfriend whom he has a 45 yo son with. He is a former smoker and quit about 20 years ago. He denies any alcohol use. Denies any Iv or illicit drug use FAMILY HISTORY: Patient denies any significant family history although he is unsure ALLERGIES: Please see below. REVIEW OF SYSTEMS: CONSTITUTIONAL: Denies fevers, chills, unintentional weight loss or weight gain. Denies night sweats HEENT: Aches. Denies dysphagia. Denies odynophagia CARDIOVASCULAR: Denies chest pain, palpitations, feelings of the heart racing RESPIRATORY: Denies shortness of breath. Denies wheezing, coughing, denies sputum production. Denies hemoptysis. GASTROINTESTINAL: Admits to chronic loose stools nice constipation. Denies nausea, vomiting. Denies abdominal pain GENITOURINARY: Denies Dysuria, increased frequency or urgency. SKIN: Denies any rashes or lesions. MUSCULOSKELETAL: Admits to bilateral chronic leg pain and weakness. NEUROLOGICAL:. Denies any changes in gait from baseline. Admits to blacking out. Denies any changes in speech. PSYCHIATRIC: Depression or anxiety. ENDOCRINE:. Admits to history of diabetes. Denies any heat intolerance or cold intolerance. HEMATOLOGIC/LYMPHATIC:. Denies any easy bruising or bleeding. HOME MEDICATIONS: Please see below. PHYSICAL EXAMINATION: VITAL SIGNS: Temperature 97.4, pulse 64, respiratory rate 16, blood pressure 122/58, pulse oximetry 96 % on room air. GENERAL APPEARANCE:. Patient is awake, alert and oriented. He does appear somewhat intermittently confused. His speech is slow at times. . He is otherwise not in any acute distress HEENT: Atraumatic normocephalic. Eyes are nonicteric. Trachea is midline because membranes are dry CARDIOVASCULAR:, Normal S1, S2, regular rate and rhythm. 2/6 systolic ejection murmur. No clicks or rubs LUNGS: Clear vesicular breath sounds bilaterally. Good respiratory effort. No wheezes rhonchi or rales. ABDOMEN: Soft. Nondistended. Nontender. Normoactive bowel sounds. No abdominal masses. EXTREMITIES: Edema. Full equal pulses in bilateral upper and lower extremities. NEUROLOGICAL: No Focal neurological deficits. PSYCHIATRIC: Mood and Affect are appropriate. LABORATORY DATA: See below. IMAGING: INDICATION: trauma. COMPARISON: Comparison head CT study 06 March 2020. Is. TECHNIQUE: Helical scanning is acquired. 5 mm axial images were reformatted. Coronal MPR images were generated. FINDINGS: Digital preliminary caving guide radiographs are unremarkable. Bone window settings show no evidence of skull fracture. No bony destructive lesion is seen. No evidence of scalp hematoma is appreciated. On soft tissue window settings, the lateral, 3rd, and 4th ventricles are normal in position and appearance. There is generalized volume loss. There is no evidence of intracranial hemorrhage. No extra-axial fluid collection is seen. No infarct mass or midline shift is observed. IMPRESSION: No skull fracture or intracranial injury. Generalized volume loss again noted. No acute intracranial abnormality.. <Electronically signed by Ezio Jasmine > 04/01/20 1615 INDICATION: fall. COMPARISON: Comparison study November 11, 2019.. TECHNIQUE: Helical scanning is acquired and overlapping 2 mm high resolution axial images were generated and reviewed at bone and soft tissue window settings. Coronal and sagittal multiplanar re-formations images are generated. FINDINGS: There is no evidence of cervical spine element fracture. No skull base fracture is seen. Cervical vertebral body heights are preserved. Alignment is normal. Facet joints are normally aligned bilaterally at each cervical level on multiplanar re-formations images. There is no evidence of intraspinal or paraspinal hematoma. No extra vertebral abnormality is seen. There is moderate degenerative disc disease at C 5 6 is C6-7 and C3-4. There is straightening of the normal cervical lordosis. 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 The degenerative spondylosis changes are stable when compared with the November 11, 2019 prior study. IMPRESSION: Degenerative spondylosis changes stable when compared with the November 11, 2019 prior study. No fracture or traumatic subluxation seen. Otherwise negative.. <Electronically signed by Ezio Jasmine > 04/01/20 1619 INDICATION: fall. COMPARISON: Multiple the latest 03/05/2020 TECHNIQUE: Portable FINDINGS: The technique utilized in obtaining the radiograph has magnified the cardiac silhouette and accentuated the interstitial markings. The superior mediastinal structures are midline. The cardiac silhouette is unremarkable in size, shape, and position. The diaphragmatic surfaces of the lungs are regular, and the costophrenic angles are clear. The pulmonary rob are clear. The imaged osseous structures are intact. IMPRESSION: There is no acute cardiopulmonary disease or significant change from the prior exam. <Electronically signed by Sony Lerma > 04/01/20 0746 MICROBIOLOGY: Please see below. ASSESSMENT: Patient is a 64-year-old male who presented to the [facility] emergency department after suffering a fall at home in which she felt backwards and his head on the bathtub. Patient describes this as blacking out. At presentation to the [facility] emergency room the patient was found to be nonketotic hyperglycemic hyperosmolar state. Hospitalist service was consultative patient was admitted for further evaluation management . PLAN: 1. Hyperosmolar hyperglycemic state -Patient presented with a blood glucose level of 798, potassium 6.8, sodium 117 corrected at 128-134, venous blood gas with a pH of 7.27 with no anion gap or elevated ketones. Serum osmolality of 306. Patient stated that he had been feeling more thirsty the past few days and has been urinating frequently. Likely lead to dehydration and further exacerbation of his hyperosmolar hyperglycemic state. -Currently, the patient does appear intermittently altered. He does state that he feels confused. He had received 6 units of IV insulin in the emergency department. However, this likely did not have affect given his dehydration. Will start the patient on IV insulin drip with normal saline running at 200 mls/hr. . Once patient's blood glucose level drops to 250 will change to D5 half normal saline. -Once patient mentation improves and he is at baseline and appropriate hydration level. Will transition him to subcutaneous insulin. -Will continue to trend BMPs every 2 hours. Patient was hyperkalemic on presentation however, this will likely correct with IV insulin. Additionally, patient was hyponatremic, however, this once again will correct with insulin infusion. -Urinalysis, blood cultures pending 2. Hyponatremia -Patient presenting with sodium of 117 corrected sodium of 128-134. Serum osmolality is high there. He is hypertonic hyponatremia secondary to his hyperglycemia will correct with correction of his hyperglycemia. Continue to trend BMPs every 2 hours. 3. Hyperkalemia -Patient has hyperkalemia 6.8. He received calcium gluconate in the emergency department. There is no changes on patient's EKG hyperkalemia is likely secondary to his HHS. Hyperkalemia will likely correct with insulin infusion. Will continue to monitor BMPs every 2 hours 4. Syncope -Patient had a fall at home in which he fell backwards and hit his head on the bathtub. Patient states that he blacked out. He stated this has happened in the past as well. He is unsure if he's been evaluated for this. -Patient's fall may have been secondary to him being in [facility]. However, we'll continue with cardiac monitoring. Additionally, we'll order an echocardiogram. 5. Acute kidney injury -Patient's baseline creatinine is 0.9. On presentation to the ER, creatinine 2.0. Is likely secondary to dehydration in the setting of [facility]. Patient is currently getting normal saline rate 20, longoria per hour. He is making urine. We will continue to monitor -Urinalysis currently pending 6. Diabetes mellitus type 2 -Patient has diabetes lin type II. He is insulin-dependent. He is currently in HHS. Hemoglobin A1c was greater than 14 -Currently holding his home insulin doses he's on insulin drip. We will resume once patient is out of HHS. 7. Supratherapeutic INR -Patient presented today with a subtherapeutic INR of 4 likely secondary to his acute kidney injury in the setting of HHS. Will hold his Coumadin. He takes Coumadin for a history of his of TIA in the past. 8. Liver cirrhosis secondary to hepatitis C, currently compensated -Current MELD-Na score of 34 points -Patient has a history of liver cirrhosis secondary to hepatitis C currently, he appears compensated. He has a history of hepatic encephalopathy takes lactulose and rifaximin at home. We'll continue his medications here. We'll titrate lactulose for 3-4 bowel movements a day. Patient was altered. His ammonia level was only 17. -Will continue with her rifaximin, lactulose, thiamine, Lopressor. -Patient denies any history of ascites in the past. He denies any history of variceal hemorrhage. 9. Hypertension -Patient has a previous history of hypertension. He's been fairly normotensive here. This could be secondary to dehydration or in the setting of advanced liver failure. 10. DVT prophylaxis -Teds and sequentials. Patient currently has a supratherapeutic therapeutic INR. Vital Signs Vital Signs Date Time Temp Pulse Resp B/P (MAP) Pulse Ox O2 Delivery O2 Flow Rate FiO2 04/01/20 20:00 64 16 102/56 (71) 96 Room Air 04/01/20 15:43 97.4 Laboratory Data Labs 24H Laboratory Tests 2 04/01/20 16:51: Immature Granulocyte % (Auto) 0.4, Neutrophils (%) (Auto) 58.5, Lymphocytes (%) (Auto) 23.7L, Monocytes (%) (Auto) 14.7H, Eosinophils (%) (Auto) 1.2, Basophils (%) (Auto) 1.5H, Neutrophils # (Auto) 2.8, Lymphocytes # (Auto) 1.1L, Monocytes # (Auto) 0.7, Eosinophils # (Auto) 0.1, Basophils # (Auto) 0.1, Nucleated Red Blood Cells % (auto) 0.0, Prothrombin Time 44.1H, Prothromb Time International Ratio 4.54, Activated Partial Thromboplast Time 50.1H, Anion Gap 10, Glomerular Filtration Rate 36.2L, Calcium Level 10.2, Total Bilirubin 1.7H, Aspartate Amino Transf (AST/SGOT) 36, Alanine Aminotransferase (ALT/SGPT) 40, Alkaline Phosphatase 93, Total Protein 6.7, Albumin 2.3L, Albumin/Globulin Ratio 0.5 04/01/20 18:29: Blood Gas Bicarbonate Standard 22.6, Venous Blood pH 7.270L, Venous Blood Partial Pressure CO2 60.7H, Venous Blood Partial Pressure O2 32.9, Venous Blood Total Carbon Dioxide 29.1H, Venous Blood HCO3 27.2H, Venous Blood Oxygen Sa turation 53.5L, Venous Blood Base Excess -1.0, Osmolality 306H, Lipase 204, B- Hydroxybutyrate 2.54, Coronavirus (COVID-19)(PCR) NEGATIVE, Influenza Type A (RT-PCR) NEGATIVE, Influenza Type B (RT-PCR) NEGATIVE, Respiratory Syncytial Virus (PCR) NEGATIVE 04/01/20 19:33: Bedside Glucose Confirm (Misc) 775*H 04/01/20 21:04: CBC/BMP Laboratory Tests 04/01/20 16:51 Microbiology Microbiology 04/01/20 Blood Culture, Received Pending 04/01/20 Blood Culture, Received Pending Home Medications Scheduled Aspirin (Aspirin EC) 81 Mg Tablet.dr, 81 MG PO DAILY Docusate Sodium (Docusate Sodium) 100 Mg Capsule, 100 MG PO BID Ergocalciferol (Vitamin D2) (Vitamin D2) 50,000 Units Cap, 50,000 UNITS PO QWEEK WEDNESDAYS Insulin Detemir (Levemir) 100 Unit/1 Ml Vial, 40 UNITS SC QHS Insulin Human Lispro (Humalog) 100 Unit/1 Ml Vial, 1 DOSE SC ACHS PER SLIDING SCALE Lactulose (Lactulose) 10 Gm/15 Ml Solution, 40 ML PO Q6H Metoprolol Tartrate (Metoprolol Tartrate) 25 Mg Tablet, 12.5 MG PO DAILY Rifaximin (Xifaxan) 550 Mg Tablet, 550 MG PO BID Thiamine HCl (Thiamine HCl) 100 Mg Tablet, 100 MG PO DAILY Warfarin Sodium (Warfarin Sodium) 2 Mg Tablet, 4 MG PO QHS Scheduled PRN Capsaicin (Capsaicin) 0.025% Cream..g., 1 DOSE TOP BID PRN for PAIN APPLY TO BACK Carboxymethylcellulose Sodium (Refresh Tears) 15 Ml Drops, 1 DROP OU TID PRN for DRY EYES Dextrose (Dex4 Glucose) 4 Gm Tab.chew, 1 CHW PO ASDIRECTED PRN for LOW BLOOD SUGAR Glucagon,Human Recombinant (Glucagon Emergency Kit) 1 Mg Vial, 1 MG IM ASDIRECTED PRN for LOW BLOOD SUGAR Allergies Coded Allergies: egg (Verified Allergy, Unknown, 04/07/19) gabapentin (Verified Adverse Reaction, Intermediate, nausea vomiting, 04/03/19) spironolactone (Verified Adverse Reaction, Unknown, gynecomastia, 12/19/18) A-FIB/CHADSVASC A-FIB History Current/History of A-Fib/PAF?: No GME ATTESTATION GME ATTESTATION My faculty preceptor for this patient encounter was physically present during the encounter and was fully available. All aspects of the patient interview, examination, medical decision making process, and medical care plan development were reviewed and approved by the faculty preceptor. The faculty preceptor is aware and concurs with the plan as stated in the body of this note and will attest to such by his/her cosignature. ATTENDING NOTE TIME OF SERVICE 845PM is a 64 yr old w a hx of IDDM CAD HTN liver cirrhosis 2/2 Hep C and TIA admitted for management of hyperosmolar hyperglycemic state, and MAYUR. Rest per 's H&P MARISA TOLEDO DO Apr 01, 2020 22:16 DAVID ROLON MD Apr 02, 2020 01:54
[2020-04-02] MEDS: INSULIN IV RATE CHANGE DOCUMENTATION ML/HR XX SCH ×5 (01:59→06:29)
[2020-04-02] MEDS: NS 1,000 ML IV SCH ×2 (02:21→17:48)
[2020-04-02 02:35] LABS: CALCIUM LEVEL 9.5 MG/DL (8.8-10.2); CREATININE FOR GFR 1.41 MG/DL (0.70-1.30); GLOMERULAR FILTRATION RATE 54.2 (>49)
[2020-04-02] MEDS ORDERED: D5W/0.45% SODIUM CHLORIDE 1,000 ML IV SCH ×2 (03:15)
[2020-04-02 05:28] LABS: BLOOD UREA NITROGEN 22 MG/DL (7-18); CALCIUM LEVEL 9.4 MG/DL (8.8-10.2); CARBON DIOXIDE LEVEL 26 MEQ/L (21-32); CHLORIDE LEVEL 101 MEQ/L (98-107); CREATININE FOR GFR 1.19 MG/DL (0.70-1.30); GLOMERULAR FILTRATION RATE > 60.0 (>49); GLUCOSE, FASTING 201 MG/DL (70-100); PHOSPHORUS LEVEL 1.9 MG/DL (2.5-4.9); SODIUM LEVEL 133 MEQ/L (136-145)
[2020-04-02 06:13] LABS: BASO # 0.1 10^3/uL (0.0-0.2); BASO % 1.2 % (0.0-1.0); EOS # 0.4 10^3/uL (0.0-0.5); EOS % 5.6 % (0.0-3.0); LYMPH # 2.5 10^3/uL (1.5-5.0); LYMPH % 36.4 % (24.0-44.0); MEAN CORPUSCULAR HEMOGLOBIN 33.1 pg (27.0-33.0); MEAN CORPUSCULAR HGB CONC 35.5 g/dl (32.0-36.5); MEAN CORPUSCULAR VOLUME 93.4 fl (80.0-96.0); MONO # 0.8 10^3/uL (0.0-0.8); MONO % 12.4 % (0.0-5.0); NEUTROPHILS % 44.3 % (36.0-66.0); RED BLOOD COUNT 3.32 10^6/uL (4.30-6.10); WHITE BLOOD COUNT 6.8 10^3/uL (4.0-10.0)
[2020-04-02 06:23] LABS: PLATELET COUNT, AUTOMATED 91 10^3/uL (150-450)
[2020-04-02 06:35] LABS: BLOOD UREA NITROGEN 22 MG/DL (7-18); CALCIUM LEVEL 9.3 MG/DL (8.8-10.2); CARBON DIOXIDE LEVEL 28 MEQ/L (21-32); CHLORIDE LEVEL 102 MEQ/L (98-107); CREATININE FOR GFR 1.16 MG/DL (0.70-1.30); GLOMERULAR FILTRATION RATE > 60.0 (>49); GLUCOSE, FASTING 168 MG/DL (70-100); MAGNESIUM LEVEL 1.2 MG/DL (1.8-2.4); POTASSIUM SERUM 3.8 MEQ/L (3.5-5.1); SODIUM LEVEL 134 MEQ/L (136-145)
[2020-04-02] MEDS ORDERED: POTASSIUM PHOSPHATE INJ 15 MMOL in D5W 250 ML IV ONE (06:45)
--- NOTE | 2020-04-02 06:55 | ECGEPIP ---
[facility] - ED Test Date: 2020-04-01 Pat Name: JAXON KANG Department: Room: [place] [address] Gender: Male [employer] Route Aide: GIOVANNY : 1955 Requested By: ANA Jacobsen Order Number: [id number] Reading MD: Mane Sahu Measurements Intervals [place] Rate: 64 P: 51 AK: 252 QRS: -61 QRSD: 106 T: 48 QT: 435 QTc: 452 Interpretive Statements SINUS RHYTHM WITH FIRST DEGREE AV BLOCK POSSIBLE RIGHT VENTRICULAR CONDUCTION DELAY LEFT ANTERIOR FASCICULAR BLOCK POSSIBLE LEFT VENTRICULAR HYPERTROPHY SIMILAR TO 03/05/20 Electronically Signed on 04-02-2020 6:54:58 EST by Mane Sahu
[2020-04-02] MEDS ORDERED: LEVEMIR (INSULIN DETEMIR) 1 UNITS/0.01ML SC ONE (07:45)
[2020-04-02] MEDS ORDERED: GLUCOSE 4GM CHEW TABLET PO PRN (07:45)
[2020-04-02] MEDS ORDERED: DEXTROSE 50% 50 ML SYRINGE IV PRN (07:45)
[2020-04-02] MEDS ORDERED: GLUCAGON INJ 1MG VIAL SC PRN (07:45)
[2020-04-02 07:46] LABS: BLOOD UREA NITROGEN 21 MG/DL (7-18); CALCIUM LEVEL 9.2 MG/DL (8.8-10.2); CARBON DIOXIDE LEVEL 26 MEQ/L (21-32); CHLORIDE LEVEL 102 MEQ/L (98-107); CREATININE FOR GFR 1.11 MG/DL (0.70-1.30); GLOMERULAR FILTRATION RATE > 60.0 (>49); GLUCOSE, FASTING 135 MG/DL (70-100); PHOSPHORUS LEVEL 2.4 MG/DL (2.5-4.9); POTASSIUM SERUM 3.9 MEQ/L (3.5-5.1); SODIUM LEVEL 136 MEQ/L (136-145)
[2020-04-02] MEDS: MAG SULF 1GM/100ML (MAG RUN) 1 GM in IV 1 EA IV SCH ×4 (07:57→12:39)
[2020-04-02] MEDS: rifAXIMin 550 MG TAB (XIFAXAN) PO SCH ×2 (08:26→20:30)
[2020-04-02] MEDS: ASPIRIN 81 MG ENTERIC TAB PO SCH (08:26)
[2020-04-02] MEDS: THIAMINE 100 MG TAB PO SCH (08:26)
[2020-04-02] MEDS: METOPROLOL TART 12.5 MG PER 1/2 TAB PO SCH (08:26)
[2020-04-02 08:32] LABS: OSMOLALITY SERUM 278 MOSM/KG (280-301)
[2020-04-02] MEDS: HumaLOG INSULIN (NovoLOG) PER UNIT SC SCH ×2 (11:19→16:05)
[2020-04-02 12:53] LABS: BLOOD UREA NITROGEN 20 MG/DL (7-18); CALCIUM LEVEL 9.4 MG/DL (8.8-10.2); CARBON DIOXIDE LEVEL 26 MEQ/L (21-32); CHLORIDE LEVEL 97 MEQ/L (98-107); CREATININE FOR GFR 1.17 MG/DL (0.70-1.30); GLOMERULAR FILTRATION RATE > 60.0 (>49); GLUCOSE, FASTING 352 MG/DL (70-100); POTASSIUM SERUM 5.1 MEQ/L (3.5-5.1); SODIUM LEVEL 128 MEQ/L (136-145)
[2020-04-02 15:27] LABS: BLOOD UREA NITROGEN 21 MG/DL (7-18); CALCIUM LEVEL 9.1 MG/DL (8.8-10.2); CARBON DIOXIDE LEVEL 26 MEQ/L (21-32); CHLORIDE LEVEL 97 MEQ/L (98-107); CREATININE FOR GFR 1.12 MG/DL (0.70-1.30); GLOMERULAR FILTRATION RATE > 60.0 (>49); GLUCOSE, FASTING 345 MG/DL (70-100); POTASSIUM SERUM 5.6 MEQ/L (3.5-5.1); SODIUM LEVEL 130 MEQ/L (136-145)
--- NOTE | 2020-04-02 16:30 | IPNPDOC ---
Text Note Date of Service The patient was seen on 04/02/20. NOTE Subjective: Patient was seated examined this morning at bedside. Patient says he's feeling much better now he was able to eat his breakfast and was transitioned off the insulin drip and is now on subcutaneous insulin. Patient needed to go home not wanting to stay today and he agreed. There is no acute overnight events. Patient denies any chest pain shortness of breath fevers chills. Denies nausea vomiting or abdominal pain. Objective: Constitutional: Awake and alert, in no apparent distress ENT: Sclera are clear. Respiratory: Lungs CTA bilaterally. No respiratory distress. No use of accessory muscles. Cardiovascular: RRR S1 and S2 are normal, no murmur Gastrointestinal: Abdomen is soft, non distended, non tender, BS present. Musculoskeletal: No lower extremity edema Neurologic: No focal neurological deficit. Mental Status: A&O x3, normal affect Skin: Warm, dry Assessment/plan: 64-year-old male who presented to the [facility] emergency depar tment after suffering a fall at home in which she felt backwards and his head on the bathtub. Patient describes this as blacking out. At presentation to the [facility] emergency room the patient was found to be nonketotic hyperglycemic hyperosmolar state. Hospitalist service was consultative patient was admitted for further evaluation management # Hyperosmolar hyperglycemic state: The patient has now been transitioned off of insulin drip and is on subcutaneous insulin and tolerating his diet well. He can be removed today from ICU to medical bed. # Hyponatremia: Initially 117 on presentation now corrected to 130. Continue to monitor BMP. # Hyperkalemia:5.6 this afternoon 1X kayexelate. # Syncope: This happened at home was likely due to his hyperglycemic state. Currently does not feel dizzy. # Acute kidney injury: On presentation creatinine was 2 this improved with fluid hydration. Avoid nephrotoxins. # DM: ISS. Frequent Accu-Cheks. Hypoglycemic precautions. Continue Levemir 40 units at night. [id number] patient is likely uncompliant with his home insulin # Supratherapeutic INR: INR is for him presentation he is on Coumadin due to history of TIA. I'm uncertain of this is any appearing Coumadin for this unless it suspected to be cardiogenic. I asked the patient to follow-up with his PCP regarding continuing warfarin in the meantime I will continue it once in therape utic range. 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 History of hepatic encephalopathy takes lactulose and rifaximin at home which we will continue here. Goal to have 3-4 bowel movements per day. Currently no encephalopathy. Ammonia was 17 on presentation. # Hypertension: Currently normotensive, hold home medications. Monitor and titrate # DVT prophylaxis: Teds and sequentials. Resume Coumadin once in therapeutic range A [facility] Hospitalist Shavon GILLIAM I+O Shavon GILLIAM I+O Laboratory Tests 04/01/20 16:51 04/01/20 21:04 04/01/20 23:14 04/02/20 02:01 04/02/20 03:50 04/02/20 05:59 04/02/20 07:02 04/02/20 11:46 04/02/20 14:39 Vital Signs Date Time Temp Pulse Resp B/P (MAP) Pulse Ox O2 Delivery O2 Flow Rate FiO2 04/02/20 16:00 97.7 75 18 107/55 (72) 95 Room Air I&O- Last 24 Hours up to 6 AM 04/02/20 06:00 Intake Total 2135 ml Output Total 1200 ml Balance 935 ml CHERRI BEAL MD Apr 02, 2020 16:30
[2020-04-02 17:25] LABS: BLOOD UREA NITROGEN 19 MG/DL (7-18); CALCIUM LEVEL 9.2 MG/DL (8.8-10.2); CARBON DIOXIDE LEVEL 27 MEQ/L (21-32); CHLORIDE LEVEL 97 MEQ/L (98-107); CREATININE FOR GFR 1.24 MG/DL (0.70-1.30); GLOMERULAR FILTRATION RATE > 60.0 (>49); GLUCOSE, FASTING 401 MG/DL (70-100); PHOSPHORUS LEVEL 2.6 MG/DL (2.5-4.9); SODIUM LEVEL 130 MEQ/L (136-145)
[2020-04-02] MEDS ORDERED: HumaLOG INSULIN (NovoLOG) PER UNIT SC ONE (18:00)
[2020-04-02] MEDS ORDERED: SOD POLYSTYRENE SULFONATE SUSP 15 GM/60 ML UD PO ONE ×2 (18:00)
[2020-04-02 20:30] LABS: BLOOD UREA NITROGEN 19 MG/DL (7-18); CALCIUM LEVEL 8.8 MG/DL (8.8-10.2); CARBON DIOXIDE LEVEL 25 MEQ/L (21-32); CHLORIDE LEVEL 99 MEQ/L (98-107); CREATININE FOR GFR 1.12 MG/DL (0.70-1.30); GLOMERULAR FILTRATION RATE > 60.0 (>49); GLUCOSE, FASTING 336 MG/DL (70-100); POTASSIUM SERUM 5.6 MEQ/L (3.5-5.1); SODIUM LEVEL 132 MEQ/L (136-145)
[2020-04-02] MEDS ORDERED: HumaLOG INSULIN (NovoLOG) PER UNIT SC SCH (21:00)
[2020-04-02] MEDS ORDERED: LEVEMIR (INSULIN DETEMIR) 1 UNITS/0.01ML SC SCH (21:00)
[2020-04-02 22:43] LABS: BLOOD UREA NITROGEN 20 MG/DL (7-18); CALCIUM LEVEL 8.6 MG/DL (8.8-10.2); CARBON DIOXIDE LEVEL 29 MEQ/L (21-32); CHLORIDE LEVEL 100 MEQ/L (98-107); CREATININE FOR GFR 1.05 MG/DL (0.70-1.30); GLOMERULAR FILTRATION RATE > 60.0 (>49); GLUCOSE, FASTING 229 MG/DL (70-100); POTASSIUM SERUM 4.9 MEQ/L (3.5-5.1); SODIUM LEVEL 135 MEQ/L (136-145)
[2020-04-03] VITALS: BP 130/71
[2020-04-03 00:24] LABS: BLOOD UREA NITROGEN 19 MG/DL (7-18); CALCIUM LEVEL 8.9 MG/DL (8.8-10.2); CARBON DIOXIDE LEVEL 27 MEQ/L (21-32); CHLORIDE LEVEL 103 MEQ/L (98-107); CREATININE FOR GFR 0.97 MG/DL (0.70-1.30); GLOMERULAR FILTRATION RATE > 60.0 (>49); GLUCOSE, FASTING 155 MG/DL (70-100); POTASSIUM SERUM 4.7 MEQ/L (3.5-5.1); SODIUM LEVEL 136 MEQ/L (136-145)
[2020-04-03 02:37] LABS: BLOOD UREA NITROGEN 18 MG/DL (7-18); CALCIUM LEVEL 8.6 MG/DL (8.8-10.2); CARBON DIOXIDE LEVEL 27 MEQ/L (21-32); CHLORIDE LEVEL 106 MEQ/L (98-107); CREATININE FOR GFR 0.92 MG/DL (0.70-1.30); GLOMERULAR FILTRATION RATE > 60.0 (>49); GLUCOSE, FASTING 91 MG/DL (70-100); POTASSIUM SERUM 4.5 MEQ/L (3.5-5.1); SODIUM LEVEL 139 MEQ/L (136-145)
[2020-04-03 04:00] VITALS: BP 120/70
[2020-04-03] MEDS: NS 1,000 ML IV SCH (04:24)
[2020-04-03 06:13] LABS: BASO # 0.1 10^3/uL (0.0-0.2); BASO % 0.7 % (0.0-1.0); EOS # 0.1 10^3/uL (0.0-0.5); EOS % 1.3 % (0.0-3.0); HEMATOCRIT 30.2 % (42.0-52.0); HEMOGLOBIN 10.6 g/dl (13.5-17.5); LYMPH # 1.8 10^3/uL (1.5-5.0); LYMPH % 25.6 % (24.0-44.0); MEAN CORPUSCULAR HEMOGLOBIN 33.2 pg (27.0-33.0); MEAN CORPUSCULAR HGB CONC 35.1 g/dl (32.0-36.5); MEAN CORPUSCULAR VOLUME 94.7 fl (80.0-96.0); MONO # 0.8 10^3/uL (0.0-0.8); MONO % 11.9 % (0.0-5.0); NEUTROPHILS # 4.2 10^3/uL (1.5-8.5); NEUTROPHILS % 60.2 % (36.0-66.0); RED BLOOD COUNT 3.19 10^6/uL (4.30-6.10)
[2020-04-03 06:17] LABS: PLATELET COUNT, AUTOMATED 82 10^3/uL (150-450)
[2020-04-03 06:22] LABS: PROTHROMBIN TIME 50.6 SECONDS (12.5-14.3)
[2020-04-03 06:33] LABS: BLOOD UREA NITROGEN 19 MG/DL (7-18); CALCIUM LEVEL 8.2 MG/DL (8.8-10.2); CARBON DIOXIDE LEVEL 24 MEQ/L (21-32); CHLORIDE LEVEL 107 MEQ/L (98-107); CREATININE FOR GFR 0.88 MG/DL (0.70-1.30); GLOMERULAR FILTRATION RATE > 60.0 (>49); GLUCOSE, FASTING 101 MG/DL (70-100); MAGNESIUM LEVEL 1.4 MG/DL (1.8-2.4); POTASSIUM SERUM 4.5 MEQ/L (3.5-5.1); SODIUM LEVEL 137 MEQ/L (136-145)
[2020-04-03 06:39] LABS: INR 5.41
[2020-04-03] MEDS ORDERED: MAG SULF 1GM/100ML (MAG RUN) 1 GM in IV 1 EA IV ONE (07:45)
[2020-04-03] MEDS: HumaLOG INSULIN (NovoLOG) PER UNIT SC SCH ×2 (07:52→11:44)
[2020-04-03 08:00] VITALS: BP 129/60
[2020-04-03] MEDS: MAG SULF 1GM/100ML (MAG RUN) 1 GM in IV 1 EA IV SCH ×2 (09:34→10:39)
[2020-04-03 09:35] VITALS: BP 129/60
[2020-04-03] MEDS: ASPIRIN 81 MG ENTERIC TAB PO SCH (09:35)
[2020-04-03] MEDS: METOPROLOL TART 12.5 MG PER 1/2 TAB PO SCH (09:35)
[2020-04-03] MEDS: THIAMINE 100 MG TAB PO SCH (09:35)
[2020-04-03] MEDS: rifAXIMin 550 MG TAB (XIFAXAN) PO SCH (09:35)
[2020-04-03 12:00] VITALS: BP 135/68
[2020-04-03] MEDS ORDERED: LACTULOSE 20 GM/30 ML SYRUP UD PO ONE (12:00)
[2020-04-03] MEDS ORDERED: LACTULOSE 20 GM/30 ML SYRUP UD PO SCH ×2 (12:00→18:00)
--- NOTE | 2020-04-03 14:01 | DS.PDOC ---
Discharge Summary General Date of Admission Apr 01, 2020 at 19:18 Date of Discharge 04/03/2020 Discharge Summary PROCEDURES PERFORMED DURING STAY: [None]. ADMITTING DIAGNOSES: 1. . DISCHARGE DIAGNOSES: 1. . COMPLICATIONS/CHIEF COMPLAINT: Uncontrolled Diabetes Mellitus. HISTORY OF PRESENT ILLNESS: From H&P: HOSPITAL COURSE: 64-year-old male who presented to the [facility] emergency department after suffering a fall at home in which she felt backwards and his head on the bathtub. Patient describes this as blacking out. At presentation to the [facility] emergency room the patient was found to be nonketotic hyperglycemic hyperosmolar state. Hospitalist service was consultative patient was admitted for further evaluation management. # Hyperosmolar hyperglycemic state: The patient has now been transitioned off of insulin drip and is on subcutaneous insulin and tolerating his diet well. He worked with physical therapy today who cleared him for discharge to home. Balaji santana is also medically clear for discharge he's feeling well and back to his baseline on subcutaneous insulin. # Hyponatremia: Initially 117 on presentation now corrected to normal range at time of discharge # Hyperkalemia: This resolved with IV fluids and Kayexalate # Syncope: This happened at home was likely due to his hyperglycemic state. Currently does not feel dizzy at time of discharge. # Acute kidney injury: On presentation creatinine was 2 this improved with fluid hydration. Avoid nephrotoxins. # DM: ISS. Frequent Accu-Cheks. Hypoglycemic precautions. Continue Levemir 40 units at night. [id number] patient is likely uncompliant with his home insulin. I referred him to endocrinology at time of discharge given his poor glycemic control as evidenced by his extremely high hemoglobin A1c level. # Supratherapeutic INR: INR is for him presentation he is on Coumadin due to history of TIA which is not typical. There is no residual weakness from prior stroke. There is an echocardiogram transesophageal from last year due to MSSA bacteremia that does not demonstrate any vegetations or cardiogenic cause for his TIA in the past and he does not have a history of atrial fibrillation. Bulmaro márquez is not reliable and I do not trust him to continue to take warfarin as he is noncompliant occasionally missing doses and occasionally taking extra doses and he does not regularly monitor his INR. His INR is supratherapeutic and unremarkable sending him home on warfarin especially that I do not have a good indication for it. Therefore instead I opted to hold the warfarin and have him take continue antiplatelet therapy with aspirin which is more typical for TIA. I asked him to follow-up with his primary care physician in the next 1-5 days for hospital follow-up and in case there is an indication for warfarin that we have not been able to figure out. Given his supratherapeutic INR I expect he will be in a therapeutic range until he is seen by his physician. 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 History of hepatic encephalopathy takes lactulose and rifaximin at home which we will continue here. Goal to have 3-4 bowel movements per day. Currently no encephalopathy. Ammonia was 17 on presentation this went up slightly to 44 as lactulose was held for a few days however I resumed his lactulose on day of discharge and he had 3 bowel movements he feels well and there is no signs of acute hepatic encephalopathy I instructed him to continue lactulose and rifaximin upon discharge he has supplies of all his medications at home. # Hypertension: Resumed home medications. DISCHARGE MEDICATIONS: Please see below. ALLERGIES: Please see below. PHYSICAL EXAMINATION ON DISCHARGE: VITAL SIGNS: Please see below. Constitutional: Awake and alert, in no apparent distress ENT: Sclera are clear. Respiratory: Lungs CTA bilaterally. No respiratory distress. No use of accessory muscles. Cardiovascular: RRR S1 and S2 are normal, no murmur Gastrointestinal: Abdomen is soft, non distended, non tender, BS present. Musculoskeletal: No lower extremity edema Neurologic: No focal neurological deficit. Mental Status: A&O x3, normal affect Skin: Warm, dry LABORATORY DATA: Please see below. IMAGING: See chart PROGNOSIS: Fair ACTIVITY: [As tolerated]. DIET: Diabetic low salt diet DISPOSITION: Home with his and 4 wheel walker and recommendation of home physical therapy. DISCHARGE INSTRUCTIONS: Please follow up with your primary care physician within 1 week from discharge. If you do not have one, please follow up with us to schedule an appointment. Please keep all of your follow up appointments. Please call central to book your appointments with hospital specialists. Please take all your medications as prescribed. Please call/come to Clinic or go to the Emergency Department if - Temp >101, intractable Nausea/Vomiting, Diarrhea, Mouth sores, Headaches, Altered mental status, Seizures, sudden onset of swelling, bleeding, shortness of breath or chest pain. ITEMS TO FOLLOWUP ON ON OUTPATIENT: Follow-up with primary care physician within 1-5 days of discharge DISCHARGE CONDITION: [Stable]. TIME SPENT ON DISCHARGE: 45 minutes. Vital Signs/I&Os Vital Signs Date Time Temp Pulse Resp B/P (MAP) Pulse Ox O2 Delivery O2 Flow Rate FiO2 04/03/20 12:00 98.2 79 18 135/68 (90) 95 Room Air I&O- Last 24 Hours up to 6 AM 04/03/20 05:59 Intake Total 2977 ml Output Total 1650 ml Balance 1327 ml Laboratory Data Labs 24H Laboratory Tests 2 04/02/20 14:39: Anion Gap 7L, Glomerular Filtration Rate > 60.0, Calcium Level 9.1 04/02/20 16:28: Anion Gap 6L, Glomerular Filtration Rate > 60.0, Calcium Level 9.2, Phosphorus Level 2.6# 04/02/20 19:47: Anion Gap 8, Glomerular Filtration Rate > 60.0, Calcium Level 8.8 04/02/20 20:00: Urine Color YELLOW, Urine Appearance CLEAR, Urine pH 7.0, Urine Specific Bellamy 1.015, Urine Protein NEGATIVE, Urine Glucose (UA) 3+H, Urine Ketones NEGATIVE, Urine Blood 1+H, Urine Nitrite NEGATIVE, Urine Bilirubin NEGATIVE, Urine Urobilinogen 0.2, Urine Leukocyte Esterase NEGATIVE, Urine WBC (Auto) 1, Urine RBC (Auto) 15H, Urine Hyaline Casts (Auto) 0, Urine Bacteria (Auto) NEGATIVE, Urine Squamous Epithelial Cells 0, Urine Amorphous Sediment SMALLH, Urine Mucus (Auto) SMALL, Urine Sperm (Auto) 04/02/20 20:14: Bedside Glucose (Misc Panel) 287H 04/02/20 21:52: Anion Gap 6L, Glomerular Filtration Rate > 60.0, Calcium Level 8.6L 04/02/20 23:52: Anion Gap 6L, Glomerular Filtration Rate > 60.0, Calcium Level 8.9 04/03/20 01:53: Anion Gap 6L, Glomerular Filtration Rate > 60.0, Calcium Level 8.6L 04/03/20 05:41: Immature Granulocyte % (Auto) 0.3, Neutrophils (%) (Auto) 60.2, Lymphocytes (%) (Auto) 25.6, Monocytes (%) (Auto) 11.9H, Eosinophils (%) (Auto) 1.3, Basophils (%) (Auto) 0.7, Neutrophils # (Auto) 4.2, Lymphocytes # (Auto) 1.8, Monocytes # (Auto) 0.8, Eosinophils # (Auto) 0.1, Basophils # (Auto) 0.1, Nucleated Red Blood Cells % (auto) 0.0, Prothrombin Time 50.6H, Prothromb Time International Ratio 5.41*H, Anion Gap 6L, Glomerular Filtration Rate > 60.0, Calcium Level 8.2L, Magnesium Level 1.4L 04/03/20 07:43: Bedside Glucose (Misc Panel) 104 04/03/20 11:38: Bedside Glucose (Misc Panel) 247H 04/03/20 12:01: Ammonia 44H CBC/BMP Laboratory Tests 04/02/20 14:39 04/02/20 16:28 04/02/20 19:47 04/02/20 21:52 04/02/20 23:52 04/03/20 01:53 04/03/20 05:41 FSBS Laboratory Tests Test 04/02/20 20:14 04/03/20 07:43 04/03/20 11:38 Range/Units Bedside Glucose (Misc Panel) 287 104 247 80-115 MG/DL Microbiology Microbiology 04/01/20 Blood Culture - Preliminary, Resulted No growth after 24 hours . All specim... 04/01/20 Blood Culture - Preliminary, Resulted No growth after 24 hours . All specim... Discharge Medications Scheduled Aspirin (Aspirin EC) 81 Mg Tablet.dr, 81 MG PO DAILY, (Reported) Docusate Sodium (Docusate Sodium) 100 Mg Capsule, 100 MG PO BID, (Reported) Ergocalciferol (Vitamin D2) (Vitamin D2) 50,000 Units Cap, 50,000 UNITS PO QWEEK, (Reported) WEDNESDAYS Insulin Detemir (Levemir) 100 Unit/1 Ml Vial, 40 UNITS SC QHS, (Reported) Insulin Human Lispro (Humalog) 100 Unit/1 Ml Vial, 1 DOSE SC ACHS, (Reported) PER SLIDING SCALE Lactulose (Lactulose) 10 Gm/15 Ml Solution, 40 ML PO Q6H, (Reported) Metoprolol Tartrate (Metoprolol Tartrate) 25 Mg Tablet, 12.5 MG PO DAILY, (Reported) Rifaximin (Xifaxan) 550 Mg Tablet, 550 MG PO BID, (Reported) Thiamine HCl (Thiamine HCl) 100 Mg Tablet, 100 MG PO DAILY, (Reported) Scheduled PRN Capsaicin (Capsaicin) 0.025% Cream..g., 1 DOSE TOP BID PRN for PAIN, (Reported) APPLY TO BACK Carboxymethylcellulose Sodium (Refresh Tears) 15 Ml Drops, 1 DROP OU TID PRN for DRY EYES, (Reported) Dextrose (Dex4 Glucose) 4 Gm Tab.chew, 1 CHW PO ASDIRECTED PRN for LOW BLOOD SUGAR, (Reported) Glucagon,Human Recombinant (Glucagon Emergency Kit) 1 Mg Vial, 1 MG IM ASDIRECTED PRN for LOW BLOOD SUGAR, (Reported) Allergies Coded Allergies: egg (Verified Allergy, Unknown, 04/07/19) gabapentin (Verified Adverse Reaction, Intermediate, nausea vomiting, 04/03/19) spironolactone (Verified Adverse Reaction, Unknown, gynecomastia, 12/19/18) CHERRI BEAL MD Apr 03, 2020 14:01
== END 2020-04-03 15:22 | disposition home health service (06) | DRG 638 ==
LOC: M ED 15:43 → M ED INP 19:18 → M PCU 20:43
PROVIDERS: ADMIT Internal Medicine; ATTEND Family Medicine
DX: E11.00 Type 2 diabetes mellitus with hyperosmolarity without nonketotic hyperglycemic-hyperosmolar coma (NKHHC) (principal); N17.9 Acute kidney failure, unspecified; E87.1 Hypo-osmolality and hyponatremia; R41.0 Disorientation, unspecified; E87.5 Hyperkalemia; Z91.14 Patient's other noncompliance with medication regimen; Z86.73 Personal history of transient ischemic attack (TIA), and cerebral infarction without residual deficits; Z79.82 Long term (current) use of aspirin; Z79.899 Other long term (current) drug therapy; Z79.4 Long term (current) use of insulin; Z88.8 Allergy status to other drugs, medicaments and biological substances; Z91.012 Allergy to eggs; I10 Essential (primary) hypertension; I25.10 Atherosclerotic heart disease of native coronary artery without angina pectoris; I25.2 Old myocardial infarction; K74.60 Unspecified cirrhosis of liver; R29.6 Repeated falls; B19.20 Unspecified viral hepatitis C without hepatic coma; Z87.891 Personal history of nicotine dependence

== ENCOUNTER → 2020-04-14 | Outpatient (CLI) | payer OTHER ==
[~2020-04-14] MED LIST changes: +ASPI81CH33 PO; +ASPI81TA26 PO; +DEX44CHW2 PO; +DOCU100C16 PO; +GLUC1KIT IM; -LISI-538 PO; -LISI-542 PO; +LISI-898 PO; +LISI10TA22 PO; -LISI10TA4 PO; +LISI20TA33 PO
--- NOTE | 2020-04-14 08:52 | REP ---
INDICATION: K74.60- CIRRHOSIS COMPARISON: 11/25/2019 TECHNIQUE: Real time campos scale ultrasound examination using curved array transducer. FINDINGS: Liver demonstrates coarsened echotexture without focal hepatic lesion. Pancreas is incompletely evaluated due to interposed bowel gas but visualized portions appear normal. Evidence for prior cholecystectomy. Common bile duct measures 5.4 mm diameter. Right kidney is normal in reniform shape without hydronephrosis and measures 10.2 x 5.4 x 5.6 cm. No ascites. IMPRESSION: Coarsened hepatic echotexture consistent with hepatocellular disease. <Electronically signed by Francois Barroso > 04/14/20 [id number]
== END ==
LOC: M RAD 07:59
PROVIDERS: ATTEND Nurse Practitioner Family
DX: K74.60 Unspecified cirrhosis of liver (principal)

== ENCOUNTER 2020-05-03 14:56 | Inpatient (IN) | payer OTHER ==
[~2020-05-03] VITALS: Ht 177.8 cm; Wt 73.4 kg
[~2020-05-03 14:56] MED LIST changes: +ASPI-569 PO; -ASPI81TAEC PO; +DEXT4TAB5 PO; -GLUC4GMTAB PO
[2020-05-03] MEDS ORDERED: NS 1,000 ML IV ONE (16:00)
--- NOTE | 2020-05-03 16:14 | REP ---
INDICATION: Altered Mental Status COMPARISON: 04/01/2020 TECHNIQUE: Axial noncontrast images from the skull base to the thoracic inlet with coronal reformations. This CT examination was performed using the following dose reduction techniques: Automated exposure control, adjustment of mA and/or kv according to the patient's size, and use of iterative reconstruction technique. FINDINGS: Age-related atrophy and microvascular ischemic changes are appreciated. The ventricles and sulci are symmetric. Hunt-white differentiation is maintained. There is no evidence for acute intracranial hemorrhage, mass/mass effect, pathology or infarction. No extra-axial fluid collection. Calvarium is intact. Paranasal sinuses and mastoid air cells are clear. IMPRESSION: Age related atrophy and microvascular ischemic changes. No acute intracranial hemorrhage, infarction, or mass/mass effect. <Electronically signed by Francois Barroso > 05/03/20 [id number]
[2020-05-03 16:18] LABS: BASO # 0.1 10^3/uL (0.0-0.2); BASO % 1.4 % (0.0-1.0); EOS # 0.3 10^3/uL (0.0-0.5); EOS % 4.8 % (0.0-3.0); HEMATOCRIT 31.9 % (42.0-52.0); HEMOGLOBIN 11.2 g/dl (13.5-17.5); LYMPH # 2.2 10^3/uL (1.5-5.0); LYMPH % 34.7 % (24.0-44.0); MEAN CORPUSCULAR HEMOGLOBIN 34.3 pg (27.0-33.0); MEAN CORPUSCULAR HGB CONC 35.1 g/dl (32.0-36.5); MEAN CORPUSCULAR VOLUME 97.6 fl (80.0-96.0); MONO # 0.9 10^3/uL (0.0-0.8); NEUTROPHILS # 2.8 10^3/uL (1.5-8.5); NEUTROPHILS % 44.6 % (36.0-66.0); PLATELET COUNT, AUTOMATED 135 10^3/uL (150-450); RED BLOOD COUNT 3.27 10^6/uL (4.30-6.10); WHITE BLOOD COUNT 6.3 10^3/uL (4.0-10.0)
--- NOTE | 2020-05-03 16:23 | REP ---
INDICATION: Altered Mental Status COMPARISON: 04/01/2020 TECHNIQUE: Portable AP view of the chest FINDINGS: The mediastinum and cardiac silhouette are stable and within normal limits for portable technique. The lung rob demonstrate chronic appearing changes without acute consolidation, effusion, or pneumothorax. Old healed left clavicle fracture.. IMPRESSION: No acute cardiopulmonary process appreciated. <Electronically signed by Francois Barroso > 05/03/20 [id number]
[2020-05-03 16:34] LABS: ABG BASE EXCESS -4.8 (-2.0-2.0); ABG HCO3 19.8 MEQ/L (22.0-26.0); ABG O2 SATURATION 95.7 % (95.0-99.0); ABG PARTIAL PRESSURE CO2 34.9 mmHg (35.0-45.0); ABG STANDARD HCO3 20.5 MEQ/L (22.0-26.0); ABG TOTAL CO2 20.8 MEQ/L (23.0-31.0); ABG pH (ARTERIAL) 7.371 UNITS (7.350-7.450)
[2020-05-03 17:03] LABS: ACETAMINOPHEN LEVEL < 2.0 UG/ML (10.0-30.0); ACETONE/KETONE 1.39 MG/DL (<2.81); ALBUMIN 2.5 GM/DL (3.2-5.2); ALT/SGPT 20 U/L (12-78); BILIRUBIN,DIRECT 0.3 MG/DL (0.0-0.2); BILIRUBIN,TOTAL 0.6 MG/DL (0.2-1.0); BLOOD UREA NITROGEN 23 MG/DL (7-18); CALCIUM LEVEL 9.7 MG/DL (8.8-10.2); CARBON DIOXIDE LEVEL 25 MEQ/L (21-32); CHLORIDE LEVEL 93 MEQ/L (98-107); CK-MB VALUE MASS 1.7 NG/ML (<3.6); CPK CREATINE PHOSPHOKINASE 35 U/L (39-308); CREATININE FOR GFR 1.94 MG/DL (0.70-1.30); ETHYL ALCOHOL (ETHANOL) < 0.003 % (0.000-0.010); GLOMERULAR FILTRATION RATE 37.5 (>49); GLUCOSE, FASTING 479 MG/DL (70-100); LIPASE 175 U/L (73-393); MAGNESIUM LEVEL 1.8 MG/DL (1.8-2.4); MB/CK RELATIVE INDEX 4.86 (< OR =4); PHOSPHORUS LEVEL 4.8 MG/DL (2.5-4.9); POTASSIUM SERUM 4.5 MEQ/L (3.5-5.1); SALICYLATE LEVEL < 1.7 MG/DL (5.0-30.0); SODIUM LEVEL 126 MEQ/L (136-145); TOTAL PROTEIN 6.4 GM/DL (6.4-8.2); TROPONIN I 0.06 NG/ML (< 0.10)
[2020-05-03] MEDS ORDERED: LISI20TA33 PO (17:17)
[2020-05-03] MEDS ORDERED: OXYC-517 PO (17:17)
[2020-05-03] MEDS ORDERED: FURO40TA2 PO (17:17)
[2020-05-03] MEDS ORDERED: LYRI150C PO (17:17)
[2020-05-03] MEDS ORDERED: NS 1,000 ML IV SCH (17:24)
[2020-05-03] MEDS ORDERED: cefTRIAXone SOD 2 GM in D5W MINI-BAG PLUS 50 ML IV ONE (17:25)
[2020-05-03 17:28] LABS: OSMOLALITY SERUM 288 MOSM/KG (280-301)
[2020-05-03] MEDS ORDERED: HumuLIN R (REGULAR) INSULIN (NovoLIN R) **100U/ML** PER UNIT IV ONE (17:30)
[2020-05-03] MEDS ORDERED: GLUCAGON INJ 1MG VIAL SC PRN (17:35)
[2020-05-03] MEDS ORDERED: GLUCOSE 4GM CHEW TABLET PO PRN (17:35)
[2020-05-03] MEDS ORDERED: CAPSAICIN 0.025% CR 60 GM TOP PRN (17:35)
[2020-05-03] MEDS ORDERED: DEXTROSE 50% 50 ML SYRINGE IV PRN (17:35)
--- NOTE | 2020-05-03 17:36 | HPEPDOC ---
[facility] Medical History & Physical Date of Admission May 03, 2020 Date of Service: May 03, 2020 Attending Physician: Lia Mcdonnell MD History and Physical CHIEF COMPLAINT: high blood sugar at home HISTORY OF PRESENT ILLNESS: Patient is a 64-year-old male with past medical history of coronary artery disease status post HI, hepatitis C, hypertension, diabetes mellitus type 2, liver cirrhosis secondary to alcohol abuse and hepatitis C, history of hepatic encephalopathy, history of CVA/TIA who [facility] after his stated that he has been increasingly confused and having high blood sugars at home. According to the patient's , he was confused and his baseline and was acting as though he was having increased encephalopathy like he does when he has high ammonia levels. He also had high blood sugars in the [id number] at home. He has been getting a reading of "high" on his glucometer throughout today which means that his blood sugars were likely even over 400s. He was given a total of 20 units of fast acting insulin at home and his blood sugars would not come down. He has also been having polyuria, polydipsia, increased lethargy at home over the past several weeks. He has been having loose stools 23 times per day from his lactulose and complains of occasional abdominal pain on and off for several months. The patient was brought in for further evaluation today by his . In the emergency room, blood pressure was low at 77/52. The patient received 2 NSS liter boluses and had improvement with blood pressure of 98/70. All other vital signs were stable. After receiving fluid the patient was more awake and alert and was able to recall his history with myself. On exam he appeared dry with dry oral mucosa and poor skin turgor. The patient has been taking his home diuretics along with his antihypertensive medications along with having increased urinary output due to uncontrolled blood sugars. Labs showed sodium 126, chloride 93, blood sugar 479- corrected sodium 132. Ammonia level 56, ABG pH 7.37, acetones negative on serum exam. Anion gap 8, creatinine elevated at 1.94, baseline creatinine is within normal limits. ECG showed normal sinus rh ythm with a prolonged QTC of 498. CT of the head negative chest x-ray negative. Lactic acid was elevated at 4.5. Patient was admitted for further workup of hypotension likely secondary to dehydration secondary to uncontrolled diabetes mellitus type 2, rule out infection. REVIEW OF SYSTEMS: Neg except for what is mentioned above PAST MEDICAL HISTORY: Coronary artery disease status post HI in 2018 Hepatitis C treated 3 years ago by PCP in [place] Hypertension Diabetes mellitus type II Liver cirrhosis likely 2/2 to alcohol abuse and Hepatitis C History of hepatic encephalopathy TIA Endocarditis PAST SURGICAL HISTORY: Cholecystectomy Appendectomy SOCIAL HISTORY Denies smoking, quit smoking 20 years ago. Hx of alcohol use, last drink 11/2019 Denies illicit, or recreational drug use FAMILY HISTORY: mother: CAD, dementia. Alive father: unknown medical history, ALLERGIES: Please see below. HOME MEDICATIONS: Please see below. PHYSICAL EXAMINATION: VS: 98/70, 98.6F, 73, 20, 94% on RA CONSTITUTIONAL: thin male, no acute distress, resting comfortably in bed , AAO x 3 EYES: PERRLA, EOM intact HENT, MOUTH: Normocephalic, atraumatic, dry mucous membranes NECK: SUPPLE, no JVD, no lymphadenopathy, no carotid bruit CV: Regular rate and rhythm, S1S2 normal, no murmurs/rubs/gallops CHEST: loop recorder attached to left side of chest RESPIRATORY: Clear to auscultation bilaterally, no rales/rhonchi/wheezes GI: thin abd, BS positive in 4 quadrants, soft, nontender, nondistended, no rebound or guarding, no organomegaly : Deferred MUSCULOSKELETAL: Normal ROM. No cyanosis, clubbing, swelling, joint deformity, extremity edema INTEGUMENTARY: Dry skin, poor skin turgor. Intact, no rashes, no lesions, no erythema NEUROLOGIC: Cranial Nerves II-XII are intact, no focal deficits PSYCHIATRIC: Mood and affect are normal LABORATORY DATA: Please see below MICROBIOLOGY: Blood cultures x 2 sets; pending UA pending IMAGING: CT head: no acute intracranial abnormality CXR: neg for acute findings ASSESSMENT: 64-year-old male with past medical history of coronary artery disease status post HI, hepatitis C, hypertension, diabetes mellitus type 2, liver cirrhosis secondary to alcohol abuse and hepatitis C, history of hepatic encephalopathy, history of CVA/TIAadmitted for further workup of hypotension likely secondary to dehydration secondary to uncontrolled diabetes mellitus type 2, rule out infection. PLAN: Hypotension likely 2/2 to dehydration from medications (diuretics, ACEi, BB), polyuria from hyperglycemia, incr in stools with lactulose -Hx of HTN normally -Improving on IVFs, s/p 2 liter boluses, now on 125 cc/hr -LA elevated but at this time no s/s of infection (afebrile, no WBC)- no SIRS -F/u labs, micro above -Holding all meds above, decreased dose of lactulose while we are monitoring his stools -Monitor closely on telemetry Acute kidney injury likely 2/2 to medications, prerenal etiology (dehydration) -Cr at baseline wnl, currently 1.9 -C/w IVFs, holding meds above -F/u UA -Daily labs Uncontrolled DM type II -r/o infection as cause, both patient and state that he is complaint with medications at home. -C/w levemir 45 U SC QHS, ISS, FS AC/HS, consistent carb diet Lactic acidosis likely 2/2 to dehydration, r/o infection -Afebrile, WBC wnl, LA elevated at 4.5 -C/w IVFs -F/u micro above -Received 2 gm ceftriaxone in ER, holding off on additional abx for now. Prolonged QTc -Avoid medications that could worsen this -ECG in chart, follow up repeat in the AM CAD s/p HI -Trop neg, cycling in setting of hypotension -Denies chest pain, SOB, diaphoresis -Has loop recorder attached to left side of chest, placed on request of cardiology -Does not have a regular correction warden but is being set up by one at the [place] -Holding diuretics, ACEi, BB. C/w ASA, not on statin Liver cirrhosis 2/2 to hepatitis C and alcohol abuse / hepatic encephalopathy hx -Currently more awake and alert, Ammonia 56- not suspecting encephalopathy as cause of AMS on arrival -C/w home meds, decreased dose lactulose as explained above -Goal is 2 BM with lactulose daily Chronic pain/ peripheral neuropathy -C/w lyrica, holding oxycodone with low BP for now DVT px -Heparin SC DISPOSITION: Admitted inpatient. Plan is discharge home when medically improved. Vital Signs Vital Signs Date Time Temp Pulse Resp B/P (MAP) Pulse Ox O2 Delivery O2 Flow Rate FiO2 05/03/20 15:06 98.6 73 20 77/52 (60) 94 Room Air Laboratory Data Labs 24H Laboratory Tests 2 05/03/20 16:00: Anion Gap 8, Glomerular Filtration Rate 37.5L, Calcium Level 9.7, Phosphorus Level 4.8, Magnesium Level 1.8, Total Bilirubin 0.6, Direct Bilirubin 0.3H, As partate Amino Transf (AST/SGOT) 22, Alanine Aminotransferase (ALT/SGPT) 20, Alkaline Phosphatase 114, Total Creatine Kinase 35L, Creatine Kinase MB 1.7, Creatine Kinase MB Relative Index 4.86H, Troponin I 0.06, Total Protein 6.4, Albumin 2.5L, Albumin/Globulin Ratio 0.6, Lipase 175, Thyroid Stimulating Hormone (TSH) 3.000, Salicylates Level < 1.7L, Acetaminophen Level < 2.0L, Ethyl Alcohol Level < 0.003, B-Hydroxybutyrate 1.39 05/03/20 16:01: Immature Granulocyte % (Auto) 0.5, Neutrophils (%) (Auto) 44.6, Lymphocytes (%) (Auto) 34.7, Monocytes (%) (Auto) 14.0H, Eosinophils (%) (Auto) 4.8H, Basophils (%) (Auto) 1.4H, Neutrophils # (Auto) 2.8, Lymphocytes # (Auto) 2.2, Monocytes # (Auto) 0.9H, Eosinophils # (Auto) 0.3, Basophils # (Auto) 0.1, Nucleated Red Blood Cells % (auto) 0.0, Lactic Acid Level 4.5*H, Ammonia 56H 05/03/20 16:21: Blood Gas Bicarbonate Standard 20.5L, Arterial Blood pH 7.371, Arterial Blood Partial Pressure CO2 34.9L, Arterial Blood Partial Pressure O2 87.0, Arterial Blood Total CO2 20.8L, Arterial Blood HCO3 19.8L, Arterial Blood Base Excess - 4.8L, Arterial Blood Oxygen Saturation 95.7 CBC/BMP Laboratory Tests 05/03/20 16:00 05/03/20 16:01 Microbiology Microbiology 05/03/20 Blood Culture, Received Pending 05/03/20 Blood Culture, Received Pending Home Medications Scheduled Aspirin (Aspirin EC) 81 Mg Tablet.dr, 81 MG PO DAILY Docusate Sodium (Docusate Sodium) 100 Mg Capsule, 100 MG PO BID Ergocalciferol (Vitamin D2) (Vitamin D2) 50,000 Units Cap, 50,000 UNITS PO QWEEK WEDNESDAYS Furosemide (Furosemide) 40 Mg Tablet, 40 MG PO DAILY Insulin Detemir (Levemir) 100 Unit/1 Ml Vial, 45 UNITS SC QHS Insulin Human Lispro (Humalog) 100 Unit/1 Ml Vial, 1 DOSE SC ACHS PER SLIDING SCALE Lactulose (Lactulose) 10 Gm/15 Ml Solution, 40 ML PO Q6H Lisinopril (Lisinopril) 20 Mg Tablet, 10 MG PO DAILY Metoprolol Tartrate (Metoprolol Tartrate) 25 Mg Tablet, 12.5 MG PO DAILY Pregabalin (Lyrica) 150 Mg Capsule, 150 MG PO BID Rifaximin (Xifaxan) 550 Mg Tablet, 550 MG PO BID Thiamine HCl (Thiamine HCl) 100 Mg Tablet, 100 MG PO DAILY Scheduled PRN Capsaicin (Capsaicin) 0.025% Cream..g., 1 DOSE TOP BID PRN for PAIN APPLY TO BACK Carboxymethylcellulose Sodium (Refresh Tears) 15 Ml Drops, 1 DROP OU TID PRN for DRY EYES Dextrose (Dex4 Glucose) 4 Gm Tab.chew, 1 CHW PO ASDIRECTED PRN for LOW BLOOD SUGAR Glucagon,Human Recombinant (Glucagon Emergency Kit) 1 Mg Vial, 1 MG IM ASDIRECTED PRN for LOW BLOOD SUGAR Oxycodone HCl (Oxycodone HCl) 5 Mg Tablet, 10 MG PO BID PRN for PAIN Allergies Coded Allergies: egg (Verified Allergy, Unknown, 04/07/19) gabapentin (Verified Adverse Reaction, Intermediate, nausea vomiting, 04/03/19) spironolactone (Verified Adverse Reaction, Unknown, gynecomastia, 12/19/18) A-FIB/CHADSVASC A-FIB History Current/History of A-Fib/PAF?: No Current PO Anticoag Therapy: No Age/Risk Factor Scoring CHADSVASC: CHADSVASC Response (Comments) Value Age Risk Factor Age < 65 years old 0 Gender Risk Factor Male 0 Hx of CHF No 0 Hx of HTN Yes 1 Hx of Stroke/TIA/or VTE Yes 2 Hx of Diabetes Yes 1 Hx of Vascular Disease No 0 Total 4 Treatment Treatment ordered: Other Other anticoagulant ordered: heparin Lia Mcdonnell MD May 03, 2020 17:36
[2020-05-03] MEDS ORDERED: LACTULOSE 20 GM/30 ML SYRUP UD PO SCH (18:00)
[2020-05-03] MEDS: NS 1,000 ML IV SCH (18:09)
[2020-05-03 18:27] LABS: RSV AMPLIFICATION NEGATIVE (NEGATIVE)
[2020-05-03] MEDS ORDERED: NS 500 ML IV ONE ×2 (18:40→20:50)
--- NOTE | 2020-05-03 19:43 | ECGEPIP ---
[facility] [place] - ED Test Date: 2020-05-03 Pat Name: JAXON KANG Department: Room: - Gender: Male [employer]: COLTON : 1955 Requested By: JOSETTE Tinajero Order Number: [id number] Reading MD: Trae Fonseca Measurements Intervals [place] Rate: 63 P: 12 UT: 186 QRS: -50 QRSD: 88 T: -35 QT: 482 QTc: 493 Interpretive Statements Normal sinus rhythm with 1st degree AV block Left axis deviation LEFT ANTERIOR FASCICULAR BLOCK Prolonged QT NONSPECIFIC ST T WAVE CHANGES cw 04/01/[address] T WAVE CHANGES Electronically Signed on 05-03-2020 19:43:08 EST by Trae Fonseca
[2020-05-03 20:03] LABS: INR 1.25
[2020-05-03 20:04] LABS: PARTIAL THROMBOPLASTIN TIME 32.9 SECONDS (24.2-38.5)
[2020-05-03] MEDS ORDERED: HumaLOG INSULIN (NovoLOG) PER UNIT SC SCH (21:00)
[2020-05-03] MEDS ORDERED: LEVEMIR (INSULIN DETEMIR) 1 UNITS/0.01ML SC SCH (21:00)
[2020-05-03 21:26] VITALS: BP 112/53
[2020-05-03] MEDS: rifAXIMin 550 MG TAB (XIFAXAN) PO SCH (21:38)
[2020-05-03] MEDS: DOCUSATE SODIUM 100MG CAPSULE PO SCH (21:38)
[2020-05-03] MEDS: PREGABALIN 75 MG CAP(LYRICA) PO SCH (21:38)
[2020-05-03] MEDS: HEPARIN SOD (PORCINE) 5000UNITS/ML 1ML VIAL/SYRINGE SC SCH (21:39)
[2020-05-04] VITALS: BP 101/57
[2020-05-04] MEDS ORDERED: NS 500 ML IV ONE (01:50)
[2020-05-04] MEDS: NS 1,000 ML IV SCH ×2 (01:57→09:33)
[2020-05-04 04:00] VITALS: BP 102/55
[2020-05-04 05:17] LABS: MEAN CORPUSCULAR HEMOGLOBIN 33.8 pg (27.0-33.0); MEAN CORPUSCULAR HGB CONC 34.5 g/dl (32.0-36.5); PLATELET COUNT, AUTOMATED 108 10^3/uL (150-450); RED BLOOD COUNT 2.96 10^6/uL (4.30-6.10); WHITE BLOOD COUNT 5.5 10^3/uL (4.0-10.0)
[2020-05-04 05:36] LABS: ALBUMIN 1.9 GM/DL (3.2-5.2); ALT/SGPT 15 U/L (12-78); BILIRUBIN,TOTAL 0.6 MG/DL (0.2-1.0); BLOOD UREA NITROGEN 16 MG/DL (7-18); CALCIUM LEVEL 7.4 MG/DL (8.8-10.2); CARBON DIOXIDE LEVEL 21 MEQ/L (21-32); CHLORIDE LEVEL 107 MEQ/L (98-107); GLOMERULAR FILTRATION RATE > 60.0 (>49); GLUCOSE, FASTING 340 MG/DL (70-100); POTASSIUM SERUM 4.1 MEQ/L (3.5-5.1); SODIUM LEVEL 135 MEQ/L (136-145); TOTAL PROTEIN 5.1 GM/DL (6.4-8.2)
[2020-05-04 07:04] VITALS: BP 101/56
[2020-05-04] MEDS ORDERED: ASPIRIN 81 MG ENTERIC TAB PO SCH (09:00)
[2020-05-04] MEDS ORDERED: THIAMINE 100 MG TAB PO SCH (09:00)
[2020-05-04] MEDS: HEPARIN SOD (PORCINE) 5000UNITS/ML 1ML VIAL/SYRINGE SC SCH (09:32)
[2020-05-04] MEDS: HumaLOG INSULIN (NovoLOG) PER UNIT SC SCH ×2 (09:32→11:54)
[2020-05-04] MEDS: DOCUSATE SODIUM 100MG CAPSULE PO SCH (09:33)
[2020-05-04] MEDS: rifAXIMin 550 MG TAB (XIFAXAN) PO SCH (09:33)
[2020-05-04] MEDS: PREGABALIN 75 MG CAP(LYRICA) PO SCH (09:33)
[2020-05-04] MEDS ORDERED: LACT20EL PO ×2 (10:58→11:00)
--- NOTE | 2020-05-04 11:14 | IPNPDOC ---
Text Note Date of Service The patient was seen on 05/04/20. NOTE SUBJECTIVE: -No acute events overnight PHYSICAL EXAMINATION: VS: See below. GEN: No acute distress, resting comfortably in bed , AAO x 3 EYES: PERRLA, EOM intact HENT, MOUTH: Normocephalic, atraumatic, moist mucous membranes NECK: SUPPLE, no JVD, no lymphadenopathy CV: Regular rate and rhythm, S1S2 normal, no murmurs/rubs/gallops CHEST: loop recorder attached to left side of chest RESPIRATORY: Clear to auscultation bilaterally, no rales/rhonchi/wheezes GI: scaphoid abdomen, BS positive in 4 quadrants, soft, nontender, nondistended, no rebound or guarding, no organomegaly INTEGUMENTARY: Dry skin, poor skin turgor. Intact, no rashes, no lesions, no erythema NEUROLOGIC: Cranial Nerves II-XII are intact, no focal deficits PSYCHIATRIC: Mood and affect are normal EXT: No edema LABORATORY DATA: Reviewed blood glucose 380 this AM Cr 1.2 WBC 5.5 Hgb 10 platelets 108 ammonia on admission 56 MICROBIOLOGY: Blood cultures x 2 sets; NGTD UA bland IMAGING: CT head: no acute intracranial abnormality CXR: neg for acute findings ASSESSMENT: 64-year-old M with a history of coronary artery disease status post MS, hepatitis C, hypertension, diabetes mellitus type 2, liver cirrhosis secondary to alcohol abuse and hepatitis C, history of hepatic encephalopathy, history of CVA/TIA admitted for further workup of hypotension likely secondary to dehydration secondary to uncontrolled diabetes mellitus type 2 and acute encephalopathy. PLAN: Hypotension likely 2/2 to dehydration from PO while on diuretics, ACEi, BB, polyuria from hyperglycemia, incr in stools with lactulose -Hx of HTN normally -Improving on IVFs, s/p 2 liter boluses, now on 125 cc/hr -LA elevated no s/s of infection (afebrile, no WBC)- no SIRS -F/u labs, micro above thus far negative -Holding all diuretics, ACEi and BB, decreased frequency of lactulose while we are monitoring his stools -Monitor closely on telemetry Acute kidney injury likely 2/2 to medications, prerenal etiology (dehydration) -Cr improved, now 1.2 -C/w IVFs, holding meds above -UA was bland -Daily BMP Uncontrolled DM type II -No evidence of infection as cause, both patient and state that he is compl aint with medications at home. -Increase levemir from 45 U to 50 U SC QHS, ISS, FS AC/HS, consistent carb diet Lactic acidosis likely 2/2 to dehydration, r/o infection -Afebrile, WBC wnl, LA elevated at 4.5 -C/w IVFs -F/u micro above -Received 2 gm ceftriaxone in ER, holding off on additional abx for now. 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 C/w ASA, not on statin Liver cirrhosis 2/2 to hepatitis C and alcohol abuse / hepatic encephalopathy hx -AOx3 now. Ammonia 56 - not suspecting encephalopathy as cause of AMS on arrival -C/w home meds, decreased dose lactulose as explained above -Goal is 2 BM with lactulose daily Chronic pain/ peripheral neuropathy -C/w lyrica, holding oxycodone with low BP for now DVT px -Heparin SC DISPOSITION: Admitted inpatient. Plan is discharge home this afternoon VSShavon, I+O VSShavon, I+O Laboratory Tests 05/03/20 16:00 05/03/20 16:01 05/04/20 04:47 Vital Signs Date Time Temp Pulse Resp B/P (MAP) Pulse Ox O2 Delivery O2 Flow Rate FiO2 05/04/20 07:04 97.6 64 18 101/56 (71) 97 Room Air I&O- Last 24 Hours up to 6 AM 05/04/20 05:59 Intake Total 3275 ml Output Total 400 ml Balance 2875 ml LUKAS LAWTON MD May 04, 2020 08:07
--- NOTE | 2020-05-04 11:17 | DS.PDOC ---
Discharge Summary General Date of Admission May 03, 2020 at 18:13 Date of Discharge 05/04/2020 Attending Physician: LUKAS LAWTON MD Discharge Summary PROCEDURES PERFORMED DURING STAY: None ADMITTING DIAGNOSES: Dehydration Hypotension MAYUR Metabolic encephalopathy Hyperglycemia DISCHARGE DIAGNOSES: Dehydration Hypotension MAYUR Metabolic encephalopathy Coronary artery disease status post IA in 2018 Hepatitis C treated 3 years ago by PCP in [place] Hypertension Diabetes mellitus type II Liver cirrhosis likely 2/2 to alcohol abuse and Hepatitis C History of hepatic encephalopathy TIA History of endocarditis COMPLICATIONS/CHIEF COMPLAINT: Acute Kidney Injury/Diabetes Mellitus With Hypergl. HISTORY OF PRESENT ILLNESS: 64-year-old M with a past medical history of coronary artery disease status post IA, hepatitis C, hypertension, diabetes mellitus type 2, liver cirrhosis secondary to alcohol abuse and hepatitis C, history of hepatic encephalopathy, history of CVA/TIA who presented to [facility] after his stated that he has been increasingly confused and having high blood sugars at home. According to the patient's , he was confused and his baseline and was acting as though he was having increased encephalopathy. He also had high blood sugars in the [id number] at home. He has been getting a reading of "high" on his glucometer throughout today which means that his blood sugars were likely even over 400s. He was given a total of 20 units of fast acting insulin at home and his blood sugars would not come down. He has also been having polyuria, polydipsia, increased lethargy at home over the past several weeks. He has been having loose stools 23 times per day from his lactulose and complains of occasional abdominal pain on and off for several months. The patient was brought in for further evaluation by his . HOSPITAL COURSE: In the emergency room, blood pressure was low at 77/52. The patient received 2 NSS liter boluses and had improvement with blood pressure of 98/70. All other vital signs were stable. After receiving fluid the patient was more awake and alert and was able to recall his history. On exam he appeared dry with dry oral mucosa and poor skin turgor. The patient has been taking his home diuretics along with his antihypertensive medications along with having increased urinary output due to uncontrolled blood sugars and diarrhea 2/2 lactulose Q6H. Labs showed sodium 126, chloride 93, blood sugar 479- corrected sodium 132. Ammonia level 56, ABG pH 7.37, acetones negative on serum exam. Anion gap 8, creatinine elevated at 1.94, with baseline creatinine usually within normal limits. ECG showed normal sinus rhythm with a prolonged QTC of 498. CT of the head negative chest x-ray negative. Lactic acid was elevated at 4.5. Patient was admitted for further workup of hypotension likely secondary to dehydration secondary to uncontrolled diabetes mellitus type 2, rule out infection. UA was bland while BCx were negative and imaging CXR was also negative for potential PNA. After resuming insulin he returned to normoglycemia, and with aggressive hydration, holding lasix, ACEi and reducing lactulose intervals, his hydration status, blood pressure and mentation returned to baseline. He is now being discharged home and I resumed lisinopril, discontinued lasix and reduced lactulose dosing to TID from Q6H. I am recommending close PCP follow up within 7d for adjusting BP meds and volume check after stopping lasix. DISCHARGE MEDICATIONS: Please see below. ALLERGIES: Please see below. PHYSICAL EXAMINATION ON DISCHARGE: VITAL SIGNS: Please see below. GEN: No acute distress, resting comfortably in bed , AAO x 3 EYES: PERRLA, EOM intact HENT, MOUTH: Normocephalic, atraumatic, moist mucous membranes NECK: SUPPLE, no JVD, no lymphadenopathy CV: Regular rate and rhythm, S1S2 normal, no murmurs/rubs/gallops CHEST: loop recorder attached to left side of chest RESPIRATORY: Clear to auscultation bilaterally, no rales/rhonchi/wheezes GI: scaphoid abdomen, BS positive in 4 quadrants, soft, nontender, nondistended, no rebound or guarding, no organomegaly INTEGUMENTARY: Dry skin, poor skin turgor. Intact, no rashes, no lesions, no erythema NEUROLOGIC: Cranial Nerves II-XII are intact, no focal deficits PSYCHIATRIC: Mood and affect are normal EXT: No edema LABORATORY DATA: Please see below. IMAGING: CT head: Age related atrophy and microvascular ischemic changes. No acute intracranial hemorrhage, infarction, or mass/mass effect. CXR: No acute cardiopulmonary process appreciated. PROGNOSIS: Good ACTIVITY: As tolerated DIET: consistent carb DISCHARGE PLAN: home DISPOSITION: Home DISCHARGE INSTRUCTIONS: Stop lasix. Reduce lactulose from every 6 hours to every 8 hours. See PCP within 1 week ITEMS TO FOLLOWUP ON ON OUTPATIENT: Dehydration and hypotension - stopped lasix. continued ACEi. reduced lactulose from Q6H dosing to Q8H. DISCHARGE CONDITION: Stable TIME SPENT ON DISCHARGE: 43 minutes. Vital Signs/I&Os Vital Signs Date Time Temp Pulse Resp B/P (MAP) Pulse Ox O2 Delivery O2 Flow Rate FiO2 05/04/20 07:04 97.6 64 18 101/56 (71) 97 Room Air I&O- Last 24 Hours up to 6 AM 05/04/20 05:59 Intake Total 3275 ml Output Total 400 ml Balance 2875 ml Laboratory Data Labs 24H Laboratory Tests 2 05/03/20 16:00: Prothrombin Time 16.0H, Prothromb Time International Ratio 1.25, Activated Partial Thromboplast Time 32.9, Anion Gap 8, Glomerular Filtration Rate 37.5L, Osmolality 288, Calcium Level 9.7, Phosphorus Level 4.8, Magnesium Level 1.8, Total Bilirubin 0.6, Direct Bilirubin 0.3H, Aspartate Amino Transf (AST/SGOT) 22, Alanine Aminotransferase (ALT/SGPT) 20, Alkaline Phosphatase 114, Total Creatine Kinase 35L, Creatine Kinase MB 1.7, Creatine Kinase MB Relative Index 4.86H, Troponin I 0.06, Total Protein 6.4, Albumin 2.5L, Albumin/Globulin Ratio 0.6, Lipase 175, Thyroid Stimulating Hormone (TSH) 3.000, Salicylates Level < 1.7L, Acetaminophen Level < 2.0L, Ethyl Alcohol Level < 0.003, B-Hydroxybutyrate 1.39 05/03/20 16:01: Immature Granulocyte % (Auto) 0.5, Neutrophils (%) (Auto) 44.6, Lymphocytes (%) (Auto) 34.7, Monocytes (%) (Auto) 14.0H, Eosinophils (%) (Auto) 4.8H, Basophils (%) (Auto) 1.4H, Neutrophils # (Auto) 2.8, Lymphocytes # (Auto) 2.2, Monocytes # (Auto) 0.9H, Eosinophils # (Auto) 0.3, Basophils # (Auto) 0.1, Nucleated Red Blood Cells % (auto) 0.0, Lactic Acid Level 4.5*H, Ammonia 56H 05/03/20 16:21: Blood Gas Bicarbonate Standard 20.5L, Arterial Blood pH 7.371, Arterial Blood Partial Pressure CO2 34.9L, Arterial Blood Partial Pressure O2 87.0, Arterial B lood Total CO2 20.8L, Arterial Blood HCO3 19.8L, Arterial Blood Base Excess - 4.8L, Arterial Blood Oxygen Saturation 95.7 05/03/20 16:58: Urine Color YELLOW, Urine Appearance CLEAR, Urine pH 5.0, Urine Specific [place] 1.013, Urine Protein NEGATIVE, Urine Glucose (UA) 3+H, Urine Ketones NEGATIVE, Urine Blood NEGATIVE, Urine Nitrite NEGATIVE, Urine Bilirubin NEGATIVE, Urine Urobilinogen 0.2, Urine Leukocyte Esterase NEGATIVE, Urine WBC (Auto) 1, Urine RBC (Auto) 1, Urine Hyaline Casts (Auto) 0, Urine Bacteria (Auto) NEGATIVE, Urine Squamous Epithelial Cells 0, Urine Sperm (Auto) , Coronavirus (COVID- 19)(PCR) NEGATIVE, Influenza Type A (RT-PCR) NEGATIVE, Influenza Type B (RT-PCR) NEGATIVE, Respiratory Syncytial Virus (PCR) NEGATIVE 05/03/20 19:12: Bedside Glucose (Misc Panel) 357H 05/03/20 20:08: Lactic Acid Level 3.1*H, Troponin I 0.05 05/03/20 21:17: Bedside Glucose (Misc Panel) 421H 05/03/20 23:30: Bedside Glucose (Misc Panel) 459H 05/04/20 00:27: Lactic Acid Followup at 4 Hours 3.2*H 05/04/20 03:07: Bedside Glucose (Misc Panel) 297H 05/04/20 04:47: Nucleated Red Blood Cells % (auto) 0.0, Anion Gap 7L, Glomerular Filtration Rate > 60.0, Calcium Level 7.4#L, Total Bilirubin 0.6, Aspartate Amino Transf (AST/SGOT) 15, Alanine Aminotransferase (ALT/SGPT) 15, Alkaline Phosphatase 85, Total Protein 5.1#L, Albumin 1.9#L, Albumin/Globulin Ratio 0.6 05/04/20 07:44: Bedside Glucose (Misc Panel) 191H CBC/BMP Laboratory Tests 05/03/20 16:00 05/03/20 16:01 05/04/20 04:47 FSBS Laboratory Tests Test 05/03/20 19:12 05/03/20 21:17 05/03/20 23:30 05/04/20 03:07 Range/Units Bedside Glucose (Misc Panel) 357 421 459 297 80-115 MG/DL Test 05/04/20 07:44 Range/Units Bedside Glucose (Misc Panel) 191 80-115 MG/DL Microbiology Microbiology 05/03/20 Blood Culture, Received Pending 05/03/20 Blood Culture, Received Pending Discharge Medications Scheduled Aspirin (Aspirin EC) 81 Mg Tablet.dr, 81 MG PO DAILY, (Reported) Docusate Sodium (Docusate Sodium) 100 Mg Capsule, 100 MG PO BID, (Reported) Ergocalciferol (Vitamin D2) (Vitamin D2) 50,000 Units Cap, 50,000 UNITS PO QWEEK, (Reported) WEDNESDAYS Insulin Detemir (Levemir) 100 Unit/1 Ml Vial, 45 UNITS SC QHS, (Reported) Insulin Human Lispro (Humalog) 100 Unit/1 Ml Vial, 1 DOSE SC ACHS, (Reported) PER SLIDING SCALE Lactulose (Lactulose) 10 Gm/15 Ml Solution, 40 ML PO TID Metoprolol Tartrate (Metoprolol Tartrate) 25 Mg Tablet, 12.5 MG PO DAILY, (Reported) Pregabalin (Lyrica) 150 Mg Capsule, 150 MG PO BID, (Reported) Rifaximin (Xifaxan) 550 Mg Tablet, 550 MG PO BID, (Reported) Thiamine HCl (Thiamine HCl) 100 Mg Tablet, 100 MG PO DAILY, (Reported) Scheduled PRN Capsaicin (Capsaicin) 0.025% Cream..g., 1 DOSE TOP BID PRN for PAIN, (Reported) APPLY TO BACK Carboxymethylcellulose Sodium (Refresh Tears) 15 Ml Drops, 1 DROP OU TID PRN for DRY EYES, (Reported) Dextrose (Dex4 Glucose) 4 Gm Tab.chew, 1 CHW PO ASDIRECTED PRN for LOW BLOOD SUGAR, (Reported) Glucagon,Human Recombinant (Glucagon Emergency Kit) 1 Mg Vial, 1 MG IM ASDIRECTED PRN for LOW BLOOD SUGAR, (Reported) Oxycodone HCl (Oxycodone HCl) 5 Mg Tablet, 10 MG PO BID PRN for PAIN, (Reported) Allergies Coded Allergies: egg (Verified Allergy, Unknown, 04/07/19) gabapentin (Verified Adverse Reaction, Intermediate, nausea vomiting, 04/03/19) spironolactone (Verified Adverse Reaction, Unknown, gynecomastia, 12/19/18) LUKAS LAWTON MD May 04, 2020 11:13
[2020-05-04 11:26] VITALS: BP 103/55
--- NOTE | 2020-05-04 19:37 | ECGEPIP ---
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
== END 2020-05-04 13:40 | disposition home or self-care (01) | DRG 314 ==
LOC: M ED 14:56 → M ED INP 18:13 → M PCU 21:00
PROVIDERS: ADMIT Internal Medicine; ATTEND Internal Medicine
DX: I95.9 Hypotension, unspecified (principal); G93.41 Metabolic encephalopathy; N17.9 Acute kidney failure, unspecified; E87.2 Acidosis; E86.0 Dehydration; E11.65 Type 2 diabetes mellitus with hyperglycemia; R94.31 Abnormal electrocardiogram [ECG] [EKG]; I25.10 Atherosclerotic heart disease of native coronary artery without angina pectoris; I25.2 Old myocardial infarction; I10 Essential (primary) hypertension; Z86.73 Personal history of transient ischemic attack (TIA), and cerebral infarction without residual deficits; K70.30 Alcoholic cirrhosis of liver without ascites; B18.2 Chronic viral hepatitis C; Z79.82 Long term (current) use of aspirin; Z79.899 Other long term (current) drug therapy; Z88.8 Allergy status to other drugs, medicaments and biological substances; Z79.4 Long term (current) use of insulin; Z91.012 Allergy to eggs; Z87.891 Personal history of nicotine dependence; E11.51 Type 2 diabetes mellitus with diabetic peripheral angiopathy without gangrene

== ENCOUNTER 2020-10-05 11:56 | Inpatient (IN) | payer OTHER ==
[~2020-10-05] VITALS: Ht 177.8 cm; Wt 72.0 kg
[~2020-10-05 11:56] MED LIST changes: -DEXT4TAB5 PO; +ERGO500029 PO; +FURO40TA2 PO; +GLUC4GMTAB PO; +OXYC-517 PO; -VITA50005 PO
[2020-10-05 12:45] LABS: BASO # 0.1 10^3/uL (0.0-0.2); BASO % 1.8 % (0.0-1.0); EOS # 0.2 10^3/uL (0.0-0.5); EOS % 3.7 % (0.0-3.0); HEMATOCRIT 26.1 % (42.0-52.0); HEMOGLOBIN 8.2 g/dl (13.5-17.5); LYMPH # 1.5 10^3/uL (1.5-5.0); LYMPH % 29.6 % (24.0-44.0); MEAN CORPUSCULAR HEMOGLOBIN 27.2 pg (27.0-33.0); MEAN CORPUSCULAR HGB CONC 31.4 g/dl (32.0-36.5); MEAN CORPUSCULAR VOLUME 86.4 fl (80.0-96.0); MONO # 0.7 10^3/uL (0.0-0.8); MONO % 12.8 % (2.0-8.0); NEUTROPHILS # 2.7 10^3/uL (1.5-8.5); NEUTROPHILS % 51.7 % (36.0-66.0); PLATELET COUNT, AUTOMATED 100 10^3/uL (150-450); RED BLOOD COUNT 3.02 10^6/uL (4.30-6.10); WHITE BLOOD COUNT 5.1 10^3/uL (4.0-10.0)
--- NOTE | 2020-10-05 12:45 | REP ---
INDICATION: Altered Mental Status. COMPARISON: 05/03/2020. TECHNIQUE: Single portable AP view of the chest was performed. FINDINGS: There is somewhat poor ventilation. There is bibasilar fibro atelectatic change. Superimposed lingular infiltrate cannot be excluded, although this may be artifactual. Heart is not significantly enlarged. The mediastinal silhouette is unchanged. IMPRESSION: Poor ventilation and bibasilar fibro atelectatic change. Superimposed infiltrate in the lingula cannot be excluded although this may be artifactual. <Electronically signed by Mike Hunt > 10/05/20 [id number]
[2020-10-05 13:19] LABS: OSMOLALITY SERUM 295 MOSM/KG (280-301)
[2020-10-05 13:24] LABS: ACETAMINOPHEN LEVEL < 2.0 UG/ML (10.0-30.0); ALBUMIN 2.5 GM/DL (3.2-5.2); ALT/SGPT 20 U/L (12-78); BILIRUBIN,DIRECT 0.3 MG/DL (0.0-0.2); BILIRUBIN,TOTAL 0.7 MG/DL (0.2-1.0); BLOOD UREA NITROGEN 11 MG/DL (7-18); CALCIUM LEVEL 9.1 MG/DL (8.8-10.2); CARBON DIOXIDE LEVEL 20 MEQ/L (21-32); CHLORIDE LEVEL 113 MEQ/L (98-107); CK-MB VALUE MASS 1.6 NG/ML (<3.6); CPK CREATINE PHOSPHOKINASE 37 U/L (39-308); CREATININE FOR GFR 1.01 MG/DL (0.70-1.30); ETHYL ALCOHOL (ETHANOL) < 0.003 % (0.000-0.010); GLOMERULAR FILTRATION RATE > 60.0 (>49); GLUCOSE, FASTING 205 MG/DL (70-100); MB/CK RELATIVE INDEX 4.32 (< OR =4); POTASSIUM SERUM 4.2 MEQ/L (3.5-5.1); SALICYLATE LEVEL < 1.7 MG/DL (5.0-30.0); SODIUM LEVEL 143 MEQ/L (136-145); TOTAL PROTEIN 6.6 GM/DL (6.4-8.2); TROPONIN I 0.08 NG/ML (< 0.10)
--- NOTE | 2020-10-05 13:28 | REP ---
INDICATION: AMS. COMPARISON: 05/03/2020. TECHNIQUE: CT brain performed in the axial plane. Coronal reconstruction images are performed. FINDINGS: There is mild atrophy. There is no midline shift or mass effect. There are mild stable chronic periventricular small vessel ischemic changes bilaterally. There is no acute intracranial hemorrhage. There is no extra-axial fluid collection. The visualized paranasal sinuses and mastoid air cells are well aerated. Metallic hardware is seen in the left lateral orbital wall and anterior wall of left maxillary sinus. IMPRESSION: Mild chronic changes are stable. No acute intracranial hemorrhage, midline shift or mass effect. <Electronically signed by Mike Hunt > 10/05/20 [id number]
[2020-10-05] MEDS ORDERED: NS 2,050 ML in IV 1 EA IV ONE (13:40)
[2020-10-05] MEDS ORDERED: LACTULOSE 20 GM/30 ML SYRUP UD PO ONE (13:40)
[2020-10-05 15:16] LABS: AMPHETAMINES LEVEL URINE NEGATIVE (NEGATIVE); BARBITURATES URINE NEGATIVE (NEGATIVE); BENZODIAZEPINES URINE NEGATIVE (NEGATIVE); CANNABINOIDS URINE NEGATIVE (NEGATIVE); COCAINE METABOLITE URINE NEGATIVE (NEGATIVE); METHADONE URINE NEGATIVE (NEGATIVE); OPIATES URINE POSITIVE (NEGATIVE); PHENCYCLIDINE URINE NEGATIVE (NEGATIVE)
--- NOTE | 2020-10-05 15:25 | REP ---
INDICATION: abdominal distention; ascites?. COMPARISON: Right upper quadrant ultrasound in 04/14/2020. TECHNIQUE: Real-time sonographic evaluation of abdomen performed to evaluate for ascites. FINDINGS: No significant free fluid is seen in any portion of the abdomen or pelvis. IMPRESSION: No current sonographic evidence of free fluid in the abdomen. <Electronically signed by Mike Hunt > 10/05/20 [id number]
[2020-10-05 16:11] LABS: RSV AMPLIFICATION NEGATIVE (NEGATIVE)
[2020-10-05] MEDS ORDERED: LACT20EL PO (16:47)
[2020-10-05] MEDS ORDERED: SEMA1PEN2 SQ (16:47)
[2020-10-05] MEDS ORDERED: HOME MED LIST COMPLETE! XX SCH (16:50)
[2020-10-05] MEDS ORDERED: DEXTROSE 50% 50 ML SYRINGE IV PRN (17:00)
[2020-10-05] MEDS ORDERED: GLUCAGON INJ 1MG VIAL SC PRN (17:00)
[2020-10-05] MEDS ORDERED: GLUCOSE 4GM CHEW TABLET PO PRN (17:00)
--- NOTE | 2020-10-05 17:05 | HPEPDOC ---
General Date of Admission 64-year-old male with past medical history of cirrhosis secondary to hepatitis C (treated 3 years ago) and alcohol, coronary artery disease status post stents in 2018, hypertension, and insulin-dependent diabetes mellitus type 2 presented to emergency department with change in mental status. Patient is awake, alert however not oriented and unable to contribute to history; although he is able to follow commands and answer questions for review of systems he is unable to recollect recent course of events. His was at bedside who reported patient began to become more confused for the last 3 days which prompted her to bring him to the emergency department today. As per and patient, denies fever, chills, shortness of breath, cough, complaints of abdominal pain, and chest pain. In the emergency department his vitals were stable. He was noted to have elevated ammonia and a lactic acid. He received a fluid bolus. He was admitted for further evaluation of his encephalopathy Date of Service: Oct 05, 2020 Attending Physician: SUSIE ANDRADE M.D. Chief Complaint The patient is a 65-year-old male admitted with a reason for visit of High Blood sugar, feeling ill. Home Medications Scheduled Amlodipine Besylate (Amlodipine Besylate) 5 Mg Tablet, 5 MG PO DAILY Aspirin (Aspirin EC) 81 Mg Tablet.dr, 81 MG PO DAILY, (Reported) Docusate Sodium (Docusate Sodium) 100 Mg Capsule, 100 MG PO BID, (Reported) Ergocalciferol (Vitamin D2) (Vitamin D2) 50,000 Units Cap, 50,000 UNITS PO QWEEK, (Reported) WEDNESDAYS Insulin Detemir (Levemir) 100 Unit/1 Ml Vial, 40 UNITS SC QHS Insulin Human Lispro (Humalog) 100 Unit/1 Ml Vial, 1 DOSE SC ACHS, (Reported) PER SLIDING SCALE Lactulose (Lactulose) 10 Gm/15 Ml Solution, 45 ML PO QID, (Reported) Magnesium Oxide (Magnesium Oxide) 400 Mg Tablet, 1 TAB PO BID for constipation Metoprolol Tartrate (Metoprolol Tartrate) 25 Mg Tablet, 12.5 MG PO DAILY, (Reported) Pregabalin (Lyrica) 150 Mg Capsule, 150 MG PO BID, (Reported) Rifaximin (Xifaxan) 550 Mg Tablet, 550 MG PO BID, (Reported) Semaglutide (Ozempic) 1 Mg/0.75 Ml (4 Mg/3 Ml) Pen.injctr, 1 MG SQ QWEEK, (Reported) MONDAYS Thiamine HCl (Thiamine HCl) 100 Mg Tablet, 100 MG PO DAILY, (Reported) Scheduled PRN Capsaicin (Capsaicin) 0.025% Cream..g., 1 DOSE TOP BID PRN for PAIN, (Reported) APPLY TO BACK Carboxymethylcellulose Sodium (Refresh Tears) 15 Ml Drops, 1 DROP OU TID PRN for DRY EYES, (Reported) Dextrose (Dex4 Glucose) 4 Gm Tab.chew, 1 CHW PO ASDIRECTED PRN for LOW BLOOD SUGAR, (Reported) Glucagon,Human Recombinant (Glucagon Emergency Kit) 1 Mg Vial, 1 MG IM ASDIRECTED PRN for LOW BLOOD SUGAR, (Reported) Oxycodone HCl (Oxycodone HCl) 5 Mg Tablet, 10 MG PO BID PRN for PAIN, (Reported) Allergies Coded Allergies: egg (Verified Allergy, Unknown, 04/07/19) gabapentin (Verified Adverse Reaction, Intermediate, nausea vomiting, 04/03/19) spironolactone (Verified Adverse Reaction, Unknown, gynecomastia, 12/19/18) Past Medical History Medical History 1. Cirrhosis secondary to hepatitis C and alcohol 2. Hepatitis C treated 3 years ago 3. Diabetes mellitus insulin-dependent 4. TIA 5. Endocarditis 6. Coronary artery disease status post stents 2017 7. Hypertension 8. Hyperosmolar hyperglycemia. Surgical History 1. Cholecystectomy 2. Left orbital repair as per 3. Appendectomy Social History * Smoker: Denies (Quit 30 years ago as per ) Alcohol: Denies (As per .) Drugs: denies (as per ) Recent Travel/Sick Contacts: Denies: Recent travel, Recent sick contacts A-FIB/CHADSVASC A-FIB History Current/History of A-Fib/PAF?: No Review of Systems Other systems 10 point review of system negative except for what is noted in the HPI. Physical Examination General Exam: Positive: Alert, Cooperative, No Acute Distress Eye Exam: Positive: PERRLA, EOMI ENT Exam: Positive: Atraumatic, Mucous membr. moist/pink, Pharynx Normal Neck Exam: Positive: Supple; Negative: JVD, thyromegaly Chest Exam: Positive: Clear to auscultation, Normal air movement; Negative: Wheezing Heart Exam: Positive: Rate Normal, Regular Rhythm, Normal S1, Normal S2; Negative: Tachycardic Abdomen Exam: Positive: Normal bowel sounds, Soft; Negative: Tenderness, Hepatospenomegaly Extremity Exam: Positive: Normal pulses; Negative: Cyanosis, Tenderness, Swelling Skin Exam: Positive: Nl turgor and temperature, Other skin issue (Ecchymosis appreciated over the abdomen and left arm); Negative: Rash Neuro Exam: Positive: Other (Awake, alert, oriented to self only. He is able to follow commands. Strength in the upper and lower extremities is 5/5. No focal deficits appreciated. Tremor appreciated with outstretched hands) Vital Signs Vital Signs Date Time Temp Pulse Resp B/P (MAP) Pulse Ox O2 Delivery O2 Flow Rate FiO2 10/05/20 15:24 73 18 98 Room Air 10/05/20 15:15 136/73 (94) 10/05/20 12:05 97.7 Laboratory Data Labs 24H Laboratory Tests 2 10/05/20 12:19: Bedside Glucose (Misc Panel) 192H 10/05/20 12:31: Immature Granulocyte % (Auto) 0.4, Neutrophils (%) (Auto) 51.7, Lymphocytes (%) (Auto) 29.6, Monocytes (%) (Auto) 12.8H, Eosinophils (%) (Auto) 3.7H, Basophils (%) (Auto) 1.8H, Neutrophils # (Auto) 2.7, Lymphocytes # (Auto) 1.5, Monocytes # (Auto) 0.7, Eosinophils # (Auto) 0.2, Basophils # (Auto) 0.1, Nucleated Red Blood Cells % (auto) 0.0, Anion Gap 10, Glomerular Filtration Rate > 60.0, Osmolality 295, Lactic Acid Level 4.0*H, Calcium Level 9.1, Total Bilirubin 0.7, Direct Bilirubin 0.3H, Aspartate Amino Transf (AST/SGOT) 18, Alanine Aminotransferase (ALT/SGPT) 20, Alkaline Phosphatase 124H, Ammonia 111H, Total Creatine Kinase 37L, Creatine Kinase MB 1.6, Creatine Kinase MB Relative Index 4.32H, Troponin I 0.08, Total Protein 6.6, Albumin 2.5L, Albumin/Globulin Ratio 0.6, Thyroid Stimulating Hormone (TSH) 2.670, Salicylates Level < 1.7L, Acetaminophen Level < 2.0L, Ethyl Alcohol Level < 0.003 10/05/20 14:27: Urine Color YELLOW, Urine Appearance CLEAR, Urine pH 5.0, Urine Specific [place] 1.015, Urine Protein NEGATIVE, Urine Glucose (UA) 3+H, Urine Ketones NEGATIVE, Urine Blood NEGATIVE, Urine Nitrite NEGATIVE, Urine Bilirubin NEGATIVE, Urine Urobilinogen 0.2, Urine Leukocyte Esterase NEGATIVE, Urine WBC (Auto) 1, Urine RBC (Auto) 1, Urine Hyaline Casts (Auto) 0, Urine Bacteria (Auto) NEGATIVE, Urine Squamous Epithelial Cells 0, Urine Sperm (Auto) , Urine Opiates Screen POSITIVEH, Urine Methadone Screen NEGATIVE, Urine Barbiturates Screen NEGATIVE, Urine Phencyclidine Screen NEGATIVE, Urine Amphetamines Screen NEGATIVE, Urine Benzodiazepines Screen NEGATIVE, Urine Cocaine Metabolite Screen NEGATIVE, Urine Cannabinoids Screen NEGATIVE CBC/BMP Laboratory Tests 10/05/20 12:31 Microbiology Microbiology 10/05/20 Blood Culture, Received Pending 10/05/20 Blood Culture, Received Pending Plan / VTE VTE Prophylaxis Ordered?: Yes Plan Plan #Encephalopathy -Metabolic encephalopathy secondary to elevated ammonia levels and metabolic acidosis. As per , patient has difficulty taking his lactulose at home although she reports compliance. We will initiate lactulose 45 mg 4 times daily and titrate for goal of 3 bowel movements daily. Low suspicion for infectious etiology. Abdominal ultrasound was done that showed no evidence of ascites. We will monitor off antibiotics at this time. #Metabolic acidosis -Elevated lactic acid in liver disease/poor po intake. Repeat ordered for 1700. #CAD -continue aspirin therapy. Patient was not on ambulatory statin, possibly due to underlying cirrhosis. #HTN -Continue metoprolol #IDDM -Pt mental status in the emergency department will allow him now to tolerate a diet. Thus, larry start him on his ambulatory Levemir, sliding scale, and hypoglycemic protocol. Goal BG will be 140-180. #DVT prophylaxis -Heparin subq. SUSIE ANDRADE M.D. Oct 05, 2020 15:37
[2020-10-05 18:48] VITALS: BP 157/82
[2020-10-05] MEDS ORDERED: NS 500 ML IV ONE (19:20)
[2020-10-05] MEDS: NS 1,000 ML IV SCH (20:32)
[2020-10-05] MEDS ORDERED: HumaLOG INSULIN (NovoLOG) PER UNIT SC SCH (21:00)
[2020-10-05] MEDS ORDERED: LACTULOSE 20 GM/30 ML SYRUP UD PO SCH (21:00)
[2020-10-05] MEDS: PREGABALIN 75 MG CAP(LYRICA) PO SCH (21:20)
[2020-10-05] MEDS: rifAXIMin 550 MG TAB (XIFAXAN) PO SCH (21:21)
[2020-10-05] MEDS: HEPARIN SOD (PORCINE) 5000UNITS/ML 1ML VIAL/SYRINGE SQ SCH (21:21)
[2020-10-05] MEDS: LEVEMIR (INSULIN DETEMIR) 1 UNITS/0.01ML SC SCH (21:22)
[2020-10-05] MEDS: LACTULOSE 20 GM/30 ML SYRUP UD PO SCH (21:23)
--- NOTE | 2020-10-05 21:57 | ECGEPIP ---
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
[2020-10-05 22:00] VITALS: BP 154/75
[2020-10-06] MEDS: HEPARIN SOD (PORCINE) 5000UNITS/ML 1ML VIAL/SYRINGE SQ SCH ×3 (05:03→21:15)
[2020-10-06 06:00] VITALS: BP 158/75
[2020-10-06 06:56] LABS: BASO # 0.1 10^3/uL (0.0-0.2); BASO % 1.8 % (0.0-1.0); EOS # 0.3 10^3/uL (0.0-0.5); EOS % 5.6 % (0.0-3.0); HEMATOCRIT 24.8 % (42.0-52.0); HEMOGLOBIN 7.8 g/dl (13.5-17.5); LYMPH # 1.7 10^3/uL (1.5-5.0); LYMPH % 33.7 % (24.0-44.0); MEAN CORPUSCULAR HEMOGLOBIN 27.5 pg (27.0-33.0); MEAN CORPUSCULAR HGB CONC 31.5 g/dl (32.0-36.5); MEAN CORPUSCULAR VOLUME 87.3 fl (80.0-96.0); MONO # 0.6 10^3/uL (0.0-0.8); MONO % 12.2 % (2.0-8.0); NEUTROPHILS # 2.3 10^3/uL (1.5-8.5); NEUTROPHILS % 46.3 % (36.0-66.0); PLATELET COUNT, AUTOMATED 101 10^3/uL (150-450); RED BLOOD COUNT 2.84 10^6/uL (4.30-6.10)
[2020-10-06 07:03] LABS: INR 1.24
[2020-10-06 07:04] LABS: PARTIAL THROMBOPLASTIN TIME 45.9 SECONDS (25.9-37.0)
[2020-10-06 07:20] LABS: ALBUMIN 2.3 GM/DL (3.2-5.2); ALT/SGPT 18 U/L (12-78); BILIRUBIN,TOTAL 0.7 MG/DL (0.2-1.0); BLOOD UREA NITROGEN 9 MG/DL (7-18); CALCIUM LEVEL 8.6 MG/DL (8.8-10.2); CARBON DIOXIDE LEVEL 21 MEQ/L (21-32); CHLORIDE LEVEL 115 MEQ/L (98-107); GLOMERULAR FILTRATION RATE > 60.0 (>49); GLUCOSE, FASTING 289 MG/DL (70-100); MAGNESIUM LEVEL 1.3 MG/DL (1.8-2.4); PHOSPHORUS LEVEL 3.3 MG/DL (2.5-4.9); SODIUM LEVEL 142 MEQ/L (136-145); TOTAL PROTEIN 5.8 GM/DL (6.4-8.2)
[2020-10-06] MEDS: ASPIRIN 81MG ENTERIC TABLET PO SCH (08:57)
[2020-10-06] MEDS: rifAXIMin 550 MG TAB (XIFAXAN) PO SCH ×2 (08:57→21:16)
[2020-10-06] MEDS: LACTULOSE 20 GM/30 ML SYRUP UD PO SCH ×4 (08:57→23:49)
[2020-10-06] MEDS: METOPROLOL TART 12.5 MG PER 1/2 TAB PO SCH (08:59)
[2020-10-06] MEDS: THIAMINE 100 MG TAB PO SCH (09:00)
[2020-10-06] MEDS: PREGABALIN 75 MG CAP(LYRICA) PO SCH ×2 (09:00→21:16)
[2020-10-06] MEDS ORDERED: MAGNESIUM OXIDE 400MG TAB (MAG-OX) PO ONE (11:50)
[2020-10-06] MEDS ORDERED: HumaLOG INSULIN (NovoLOG) PER UNIT SC ONE (11:50)
[2020-10-06] MEDS ORDERED: HumaLOG INSULIN (NovoLOG) PER UNIT SC SCH (12:00)
[2020-10-06] MEDS: HumaLOG INSULIN (NovoLOG) PER UNIT SC SCH ×3 (13:10→21:16)
[2020-10-06 14:00] VITALS: BP 158/88
[2020-10-06] MEDS: oxyCODONE 5MG TAB PO PRN (14:08)
[2020-10-06] MEDS: NS 1,000 ML IV SCH (16:12)
--- NOTE | 2020-10-06 19:30 | IPNPDOC ---
Subjective Date Seen The patient was seen on 10/06/20. Subjective Chief Complaint/HPI Patient seen and examined at bedside this morning. He reports no new complaints. He denies headaches, chest pain, shortness of breath, abdominal pain, nausea, vomiting, problems with urination or bowel movements Other systems 10 point review of system is negative except for what is noted in the HPI Objective Physical Examination Other physical findings General: Lying in bed, no acute distress Head/Neck/Throat: Trachea midline, mucous membranes moist Eyes: Sclera anicteric, no erythema or discharge appreciated bilaterally Thorax: Normal respiratory effort on room air, lungs clear to auscultation bilaterally, no wheezes/rales/rhonchi Cardiovascular: Normal rate, regular rhythm, normal S1, S2; no S3, S4, rubs/gallops/murmurs Abdomen: Bowel sounds present, soft/nontender/nondistended Genitourinary: No CVA tenderness, no Garcia in place Musculoskeletal: Moving all extremities, no edema Skin: Warm, dry Neurologic: Alert, awake, oriented to place, self, and month. He was unable to provide with date was and he attributed to being retired and not keeping track. Mild asterixis appreciated Assessment /Plan Plan/VTE VTE Prophylaxis Ordered?: Yes Plan #Encephalopathy -Significant provement in his mental status today. We will initiate lactulose 45 mg 4 times daily and titrate for goal of 3 bowel movements daily. Low suspicion for infectious etiology. Abdominal ultrasound was done that showed no evidence of ascites. We will monitor off antibiotics at this time. #Metabolic acidosis -Elevated lactic acid in liver disease/poor po intake. #CAD -continue aspirin therapy. Patient was not on ambulatory statin, possibly due to underlying cirrhosis. #HTN -Continue metoprolol #IDDM -Start him on his ambulatory Levemir, sliding scale, and hypoglycemic protocol. Goal BG will be 140-180. #DVT prophylaxis -Heparin subq. Disposition #Encephalopathy -Metabolic encephalopathy secondary to elevated ammonia levels and metabolic acidosis. As per , patient has difficulty taking his lactulose at home although she reports compliance. We will initiate lactulose 45 mg 4 times daily and titrate for goal of 3 bowel movements daily. Low suspicion for infectious etiology. Abdominal ultrasound was done that showed no evidence of ascites. We will monitor off antibiotics at this time. #Metabolic acidosis -Elevated lactic acid in liver disease/poor po intake. Repeat ordered for 1700. #CAD -continue aspirin therapy. Patient was not on ambulatory statin, possibly due to underlying cirrhosis. #HTN -Continue metoprolol #IDDM -Pt mental status in the emergency department will allow him now to tolerate a diet. Thus, larry start him on his ambulatory Levemir, sliding scale, and hypoglycemic protocol. Goal BG will be 140-180. #DVT prophylaxis -Heparin subq. VS, I&O, 24H, Fishbone Vital Signs/I&O Vital Signs Date Time Temp Pulse Resp B/P (MAP) Pulse Ox O2 Delivery O2 Flow Rate FiO2 10/06/20 14:38 16 Room Air 10/06/20 14:00 98.5 79 158/88 (111) 98 I&O- Last 24 Hours up to 6 AM 10/06/20 06:00 Intake Total 2975 ml Output Total 875 ml Balance 2100 ml Laboratory Data 24H LABS Laboratory Tests 2 10/05/20 19:30: Bedside Glucose (Misc Panel) 209H 10/05/20 22:49: Lactic Acid Followup at 4 Hours 2.5*H 10/06/20 06:33: Immature Granulocyte % (Auto) 0.4, Neutrophils (%) (Auto) 46.3, Lymphocytes (%) (Auto) 33.7, Monocytes (%) (Auto) 12.2H, Eosinophils (%) (Auto) 5.6H, Basophils (%) (Auto) 1.8H, Neutrophils # (Auto) 2.3, Lymphocytes # (Auto) 1.7, Monocytes # (Auto) 0.6, Eosinophils # (Auto) 0.3, Basophils # (Auto) 0.1, Nucleated Red Blood Cells % (auto) 0.0, Prothrombin Time 16.0H, Prothromb Time International Ratio 1.24, Activated Partial Thromboplast Time 45.9H, Anion Gap 6L, Glomerular Filtration Rate > 60.0, Calcium Level 8.6L, Phosphorus Level 3.3, Magnesium Level 1.3L, Total Bilirubin 0.7, Aspartate Amino Transf (AST/SGOT) 24, Alanine Aminotransferase (ALT/SGPT) 18, Alkaline Phosphatase 107, Total Protein 5.8L, Albumin 2.3L, Albumin/Globulin Ratio 0.7 10/06/20 11:34: Bedside Glucose (Misc Panel) 491H 10/06/20 16:46: Bedside Glucose (Misc Panel) 435H CBC/BMP Laboratory Tests 10/06/20 06:33 Microbiology Microbiology 10/05/20 Blood Culture - Preliminary, Resulted No growth after 24 hours . All specim... 10/05/20 Blood Culture - Preliminary, Resulted No growth after 24 hours . All specim... SUSIE ANDRADE M.D. Oct 06, 2020 18:46
[2020-10-06 21:00] VITALS: O2SAT 94
[2020-10-06] MEDS: LEVEMIR (INSULIN DETEMIR) 1 UNITS/0.01ML SC SCH (21:16)
[2020-10-06 22:00] VITALS: BP 159/86
[2020-10-07] MEDS: HEPARIN SOD (PORCINE) 5000UNITS/ML 1ML VIAL/SYRINGE SQ SCH ×3 (05:09→21:14)
[2020-10-07] MEDS: LACTULOSE 20 GM/30 ML SYRUP UD PO SCH ×4 (05:10→23:36)
[2020-10-07 06:00] VITALS: BP 155/74
[2020-10-07 06:10] LABS: HEMATOCRIT 23.8 % (42.0-52.0); HEMOGLOBIN 7.6 g/dl (13.5-17.5); MEAN CORPUSCULAR HEMOGLOBIN 27.4 pg (27.0-33.0); MEAN CORPUSCULAR HGB CONC 31.9 g/dl (32.0-36.5); MEAN CORPUSCULAR VOLUME 85.9 fl (80.0-96.0); RED BLOOD COUNT 2.77 10^6/uL (4.30-6.10); WHITE BLOOD COUNT 5.3 10^3/uL (4.0-10.0)
[2020-10-07] MEDS: oxyCODONE 5MG TAB PO PRN (06:12)
[2020-10-07 06:13] LABS: PLATELET COUNT, AUTOMATED 99 10^3/uL (150-450)
[2020-10-07 06:44] LABS: ALBUMIN 2.3 GM/DL (3.2-5.2); ALT/SGPT 20 U/L (12-78); BILIRUBIN,TOTAL 0.9 MG/DL (0.2-1.0); BLOOD UREA NITROGEN 11 MG/DL (7-18); CARBON DIOXIDE LEVEL 22 MEQ/L (21-32); CHLORIDE LEVEL 115 MEQ/L (98-107); CREATININE FOR GFR 0.87 MG/DL (0.70-1.30); GLOMERULAR FILTRATION RATE > 60.0 (>49); GLUCOSE, FASTING 228 MG/DL (70-100); MAGNESIUM LEVEL 1.5 MG/DL (1.8-2.4); PHOSPHORUS LEVEL 3.2 MG/DL (2.5-4.9); POTASSIUM SERUM 3.6 MEQ/L (3.5-5.1); SODIUM LEVEL 143 MEQ/L (136-145); TOTAL PROTEIN 6.2 GM/DL (6.4-8.2)
[2020-10-07] MEDS: rifAXIMin 550 MG TAB (XIFAXAN) PO SCH ×2 (08:42→21:15)
[2020-10-07] MEDS: HumaLOG INSULIN (NovoLOG) PER UNIT SC SCH ×4 (08:42→21:00)
[2020-10-07] MEDS: PREGABALIN 75 MG CAP(LYRICA) PO SCH ×2 (08:43→21:15)
[2020-10-07] MEDS: METOPROLOL TART 12.5 MG PER 1/2 TAB PO SCH (08:43)
[2020-10-07] MEDS: ASPIRIN 81MG ENTERIC TABLET PO SCH (08:43)
[2020-10-07] MEDS: THIAMINE 100 MG TAB PO SCH (08:43)
[2020-10-07] MEDS ORDERED: MAGNESIUM OXIDE 400MG TAB (MAG-OX) PO ONE (10:15)
[2020-10-07] MEDS ORDERED: POTASSIUM CHLORIDE 10 MEQ SR TABLET PO ONE (11:00)
[2020-10-07 12:23] VITALS: O2SAT 96
[2020-10-07] MEDS: amLODIPine 5 MG TAB PO SCH (12:56)
[2020-10-07 14:00] VITALS: BP 139/80
[2020-10-07] MEDS ORDERED: HumaLOG INSULIN (NovoLOG) PER UNIT SC ONE (16:40)
[2020-10-07 21:00] VITALS: O2SAT 95
[2020-10-07] MEDS ORDERED: LEVEMIR (INSULIN DETEMIR) 1 UNITS/0.01ML SC SCH (21:00)
[2020-10-07 22:00] VITALS: BP 147/69
[2020-10-08] MEDS: LACTULOSE 20 GM/30 ML SYRUP UD PO SCH ×2 (05:04→11:08)
[2020-10-08] MEDS: HEPARIN SOD (PORCINE) 5000UNITS/ML 1ML VIAL/SYRINGE SQ SCH (05:04)
[2020-10-08 06:00] VITALS: BP 145/68
--- NOTE | 2020-10-08 06:23 | IPNPDOC ---
Subjective Date Seen The patient was seen on 10/08/20. VS, I&O, 24H, Fishbone Vital Signs/I&O Vital Signs Date Time Temp Pulse Resp B/P (MAP) Pulse Ox O2 Delivery O2 Flow Rate FiO2 10/07/20 22:00 97.4 86 14 147/69 (95) 94 Room Air I&O- Last 24 Hours up to 6 AM 10/08/20 06:00 Intake Total 1170 ml Balance 1170 ml Laboratory Data 24H LABS Laboratory Tests 2 10/07/20 11:51: Bedside Glucose (Misc Panel) 396H 10/07/20 16:23: Bedside Glucose (Misc Panel) 410H 10/07/20 17:23: Bedside Glucose (Misc Panel) 386H 10/07/20 20:15: Bedside Glucose (Misc Panel) 229H Microbiology Microbiology 10/05/20 Blood Culture - Preliminary, Resulted No Growth after 48 hours. All Specime... 10/05/20 Blood Culture - Preliminary, Resulted No Growth after 48 hours. All Specime... SUSIE ANDRADE M.D. Oct 08, 2020 06:23
[2020-10-08 06:46] LABS: HEMATOCRIT 26.1 % (42.0-52.0); HEMOGLOBIN 8.2 g/dl (13.5-17.5); MEAN CORPUSCULAR HEMOGLOBIN 27.2 pg (27.0-33.0); MEAN CORPUSCULAR HGB CONC 31.4 g/dl (32.0-36.5); MEAN CORPUSCULAR VOLUME 86.7 fl (80.0-96.0); PLATELET COUNT, AUTOMATED 117 10^3/uL (150-450); RED BLOOD COUNT 3.01 10^6/uL (4.30-6.10); WHITE BLOOD COUNT 8.2 10^3/uL (4.0-10.0)
[2020-10-08 07:11] LABS: BLOOD UREA NITROGEN 11 MG/DL (7-18); CARBON DIOXIDE LEVEL 22 MEQ/L (21-32); CHLORIDE LEVEL 113 MEQ/L (98-107); CREATININE FOR GFR 0.85 MG/DL (0.70-1.30); GLOMERULAR FILTRATION RATE > 60.0 (>49); GLUCOSE, FASTING 148 MG/DL (70-100); MAGNESIUM LEVEL 1.5 MG/DL (1.8-2.4); PHOSPHORUS LEVEL 3.7 MG/DL (2.5-4.9); POTASSIUM SERUM 4.1 MEQ/L (3.5-5.1); SODIUM LEVEL 141 MEQ/L (136-145)
[2020-10-08] MEDS ORDERED: HumaLOG INSULIN (NovoLOG) PER UNIT SC SCH (07:30)
[2020-10-08] MEDS: rifAXIMin 550 MG TAB (XIFAXAN) PO SCH (08:05)
[2020-10-08] MEDS: PREGABALIN 75 MG CAP(LYRICA) PO SCH (08:05)
[2020-10-08] MEDS: THIAMINE 100 MG TAB PO SCH (08:05)
[2020-10-08] MEDS: ASPIRIN 81MG ENTERIC TABLET PO SCH (08:05)
[2020-10-08] MEDS: HumaLOG INSULIN (NovoLOG) PER UNIT SC SCH ×4 (08:06→12:19)
[2020-10-08 08:12] VITALS: BP 144/90
[2020-10-08] MEDS: METOPROLOL TART 12.5 MG PER 1/2 TAB PO SCH (08:12)
[2020-10-08] MEDS: amLODIPine 5 MG TAB PO SCH (08:13)
[2020-10-08] MEDS: oxyCODONE 5MG TAB PO PRN (08:15)
[2020-10-08] MEDS ORDERED: INSUDET SC (09:33)
[2020-10-08] MEDS ORDERED: AMLO1TAB24 PO (09:34)
[2020-10-08] MEDS ORDERED: MAGN400T2 PO (09:35)
[2020-10-08] MEDS ORDERED: MAG SULF 1GM/100ML (MAG RUN) 1 GM in IV 1 EA IV ONE (10:00)
--- NOTE | 2020-10-08 12:03 | DS.PDOC ---
Discharge Summary General Date of Admission Oct 05, 2020 at 15:52 Date of Discharge 10/08/20 Discharge Summary Primary diagnosis 1. Hepatic encephalopathy 2. Electrolyte abnormality (hypomagnesemia) 3. Uncontrolled hypertension 4. Uncontrolled blood glucose Mr. Padilla, was seen at [facility] on 10/05/2020 due to a change in mental status. He has a past medical history of cirrhosis secondary to hepatitis C (treated 3 years ago), coronary artery disease (s/p stents in 2018), hypertension, and insulin-dependent diabetes mellitus. He was noted to have elevated ammonia levels. He was treated with an increased dose of his lactulose which helped improve his ammonia level as well as his mental status. At the time of discharge, he was at baseline mental status. He was instructed to take his lactulose 4 times a day and to hold it if he is having more than 3 bowel movements. 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 In addition, his blood glucose was elevated he was instructed to increase his Levemir to 40 units at bedtime. This can be further managed by his primary care physician He was also noted to have hypomagnesium therefore supplementations were provided at time of discharge as well. He is to have a repeat chemistry done with his primary care physician in 1 to 2 weeks. Vital Signs/I&Os Vital Signs Date Time Temp Pulse Resp B/P (MAP) Pulse Ox O2 Delivery O2 Flow Rate FiO2 10/08/20 09:00 16 10/08/20 08:12 92 144/90 10/08/20 06:00 98.7 96 Room Air I&O- Last 24 Hours up to 6 AM 10/08/20 05:59 Intake Total 1290 ml Balance 1290 ml PHYSICAL EXAM General: Lying in bed, no acute distress Head/Neck/Throat: Trachea midline, mucous membranes moist Eyes: Sclera anicteric, no erythema or discharge appreciated bilaterally Thorax: Normal respiratory effort on room air, lungs clear to auscultation bilaterally, no wheezes/rales/rhonchi Cardiovascular: Normal rate, regular rhythm, normal S1, S2; no S3, S4, rubs/gallops/murmurs Abdomen: Bowel sounds present, soft/nontender/nondistended Genitourinary: No CVA tenderness, no Garcia in place Musculoskeletal: Moving all extremities, no edema Skin: Warm, dry Neurologic: Alert, awake, oriented to place, self, and month. He is able to follow all commands and answer questions appropriately. No focal deficits appreciated. Laboratory Data Labs 24H Laboratory Tests 2 10/07/20 11:51: Bedside Glucose (Misc Panel) 396H 10/07/20 16:23: Bedside Glucose (Misc Panel) 410H 10/07/20 17:23: Bedside Glucose (Misc Panel) 386H 10/07/20 20:15: Bedside Glucose (Misc Panel) 229H 10/08/20 06:09: Nucleated Red Blood Cells % (auto) 0.0, Anion Gap 6L, Glomerular Filtration Rate > 60.0, Calcium Level 9.0, Phosphorus Level 3.7, Magnesium Level 1.5L, Ammonia 36H CBC/BMP Laboratory Tests 10/08/20 06:09 FSBS Laboratory Tests Test 10/07/20 11:51 10/07/20 16:23 10/07/20 17:23 10/07/20 20:15 Range/Units Bedside Glucose (Misc Panel) 396 410 386 229 80-115 MG/DL Microbiology Microbiology 10/05/20 Blood Culture - Preliminary, Resulted No Growth after 48 hours. All Specime... 10/05/20 Blood Culture - Preliminary, Resulted No Growth after 48 hours. All Specime... Discharge Medications Scheduled Amlodipine Besylate (Amlodipine Besylate) 5 Mg Tablet, 5 MG PO DAILY Aspirin (Aspirin EC) 81 Mg Tablet.dr, 81 MG PO DAILY, (Reported) Docusate Sodium (Docusate Sodium) 100 Mg Capsule, 100 MG PO BID, (Reported) Ergocalciferol (Vitamin D2) (Vitamin D2) 50,000 Units Cap, 50,000 UNITS PO QWEEK, (Reported) WEDNESDAYS Insulin Detemir (Levemir) 100 Unit/1 Ml Vial, 40 UNITS SC QHS Insulin Human Lispro (Humalog) 100 Unit/1 Ml Vial, 1 DOSE SC ACHS, (Reported) PER SLIDING SCALE Lactulose (Lactulose) 10 Gm/15 Ml Solution, 45 ML PO QID, (Reported) Magnesium Oxide (Magnesium Oxide) 400 Mg Tablet, 1 TAB PO BID for constipation Metoprolol Tartrate (Metoprolol Tartrate) 25 Mg Tablet, 12.5 MG PO DAILY, (Reported) Pregabalin (Lyrica) 150 Mg Capsule, 150 MG PO BID, (Reported) Rifaximin (Xifaxan) 550 Mg Tablet, 550 MG PO BID, (Reported) Semaglutide (Ozempic) 1 Mg/0.75 Ml (4 Mg/3 Ml) Pen.injctr, 1 MG SQ QWEEK, (Reported) MONDAYS Thiamine HCl (Thiamine HCl) 100 Mg Tablet, 100 MG PO DAILY, (Reported) Scheduled PRN Capsaicin (Capsaicin) 0.025% Cream..g., 1 DOSE TOP BID PRN for PAIN, (Reported) APPLY TO BACK Carboxymethylcellulose Sodium (Refresh Tears) 15 Ml Drops, 1 DROP OU TID PRN for DRY EYES, (Reported) Dextrose (Dex4 Glucose) 4 Gm Tab.chew, 1 CHW PO ASDIRECTED PRN for LOW BLOOD SUGAR, (Reported) Glucagon,Human Recombinant (Glucagon Emergency Kit) 1 Mg Vial, 1 MG IM ASDIRECTED PRN for LOW BLOOD SUGAR, (Reported) Oxycodone HCl (Oxycodone HCl) 5 Mg Tablet, 10 MG PO BID PRN for PAIN, (Reported) Allergies Coded Allergies: egg (Verified Allergy, Unknown, 04/07/19) gabapentin (Verified Adverse Reaction, Intermediate, nausea vomiting, 04/03/19) spironolactone (Verified Adverse Reaction, Unknown, gynecomastia, 12/19/18) SUSIE ANDRADE M.D. Oct 08, 2020 11:24
== END 2020-10-08 13:41 | disposition home or self-care (01) | DRG 441 ==
LOC: M ED 11:56 → M ED INP 15:52 → ENRESERV 16:50 → M MSPAV 18:37
PROVIDERS: ADMIT Internal Medicine; ATTEND Internal Medicine
DX: K72.90 Hepatic failure, unspecified without coma (principal); G93.41 Metabolic encephalopathy; E87.2 Acidosis; K70.30 Alcoholic cirrhosis of liver without ascites; I25.10 Atherosclerotic heart disease of native coronary artery without angina pectoris; Z95.5 Presence of coronary angioplasty implant and graft; I10 Essential (primary) hypertension; E11.65 Type 2 diabetes mellitus with hyperglycemia; Z79.82 Long term (current) use of aspirin; Z79.4 Long term (current) use of insulin; Z79.899 Other long term (current) drug therapy; Z88.8 Allergy status to other drugs, medicaments and biological substances; Z91.012 Allergy to eggs; Z86.73 Personal history of transient ischemic attack (TIA), and cerebral infarction without residual deficits; Z87.891 Personal history of nicotine dependence; Z20.822 Contact with and (suspected) exposure to COVID-19; E83.42 Hypomagnesemia

== ENCOUNTER 2021-01-10 13:36 | Emergency (ER) | payer OTHER ==
[~2021-01-10] VITALS: Ht 177.8 cm; Wt 72.7 kg
[~2021-01-10 13:36] MED LIST changes: +AMLO1TAB24 PO; +DOK1CAP4 PO; -DOK1CAP7 PO; +MAGN400T2 PO; +SEMA1PEN2 SQ
--- OUTSIDE RECORDS SUMMARY | 2021-01-10 13:48 | CCD ---
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 Role Phone John, C Virginia DO Unavailable Unavailable John, C Virginia DO Unavailable Unavailable Cumby, C Virginia DO Unavailable Unavailable John, C Virginia DO Unavailable Unavailable John, C Virginia DO Unavailable Unavailable John, C Virginia DO Unavailable Unavailable John, C Virginia DO Unavailable Unavailable Cumby, C Virginia DO Unavailable Unavailable John, C Virginia DO Unavailable Unavailable John, C Virginia DO Unavailable Unavailable John, C Virginia DO Unavailable Unavailable Cumby, C Virginia DO Unavailable Unavailable Cumby, C Virginia DO Unavailable Unavailable John, C Virginia DO Unavailable Unavailable John, C Virginia DO Unavailable Unavailable Cumby, C Virginia DO Unavailable Unavailable Cumby, C Virginia DO Unavailable Unavailable Cumby, C Virginia DO Unavailable Unavailable Cumby, C Virginia DO Unavailable Unavailable John, C Virginia DO Unavailable Unavailable John, C Virginia DO Unavailable Unavailable John, C Virginia DO Unavailable Unavailable Cumby, C Virginia DO Unavailable Unavailable John, C Virginia DO Unavailable Unavailable Cumby, C Virginia DO Unavailable Unavailable Cumby, C Virginia DO Unavailable Unavailable John, C Virginia DO Unavailable Unavailable Cumby, C Virginia DO Unavailable Unavailable John, C Virginia DO Unavailable Unavailable John, C Virginia DO Unavailable Unavailable John, C Virginia DO Unavailable Unavailable John, C Virginia DO Unavailable Unavailable Cumby, C Virginia DO Unavailable Unavailable Cumby, C Virginia DO Unavailable Unavailable John, C Virginia DO Unavailable Unavailable John, C Virginia DO Unavailable Unavailable Mbame, SILO EPOSI Unavailable Unavailable Mbame, SILO EPOSI Unavailable Unavailable Mbame, SILO EPOSI Unavailable Unavailable Mbame, SILO EPOSI MD Unavailable Unavailable Mbame, SILO EPOSI MD Unavailable Unavailable Mbame, SILO EPOSI MD Unavailable Unavailable Nay PEREZ MD Unavailable Unavailable Nay PEREZ MD Unavailable Unavailable Nay PEREZ MD Unavailable Unavailable Nay PEREZ MD Unavailable Unavailable MEGHA A TALIA Unavailable Unavailable Pee STEWART MD Unavailable Unavailable [...] Unavailable Unavailable Pee STEWART MD Unavailable Unavailable Paras MERCEDES JR . Unavailable Unavailable Jared WATTS MD Unavailable Unavailable Jared WATTS MD Unavailable Unavailable Jared WATTS MD Unavailable Unavailable Jared WATTS MD Unavailable Unavailable Jared WATTS MD Unavailable Unavailable Jared WATTS MD Unavailable Unavailable Jared WATTS MD Unavailable Unavailable LANE MOORE MD Unavailable Unavailable LANE MOORE MD Unavailable Unavailable LANE MOORE MD Unavailable Unavailable LANE MOORE MD Unavailable Unavailable LANE MOORE MD Unavailable Unavailable LANE MOORE MD Unavailable Unavailable LANE MOORE MD Unavailable Unavailable LANE MOORE MD Unavailable Unavailable LANE MOORE MD Unavailable Unavailable Megha, A Talia Unavailable Pee Cleveland Unavailable Udekwu, Adaora MD Unavailable Unavailable Udekwu, Adaora MD Unavailable Unavailable Udekwu, Adaora MD Unavailable Unavailable Udekwu, Adaora MD Unavailable Unavailable Udekwu, Adaora MD Unavailable Unavailable Udekwu, Adaora MD Unavailable Unavailable Udekwu, Adaora MD Unavailable Unavailable Udekwu, Adaora MD Unavailable Unavailable Udekwu, Adaora MD Unavailable Unavailable Udekwu, Adaora MD Unavailable Unavailable Udekwu, Adaora MD Unavailable Unavailable SARSFIELD, J MARISA MD Unavailable Unavailable SARSFIELD, J MARISA MD Unavailable Unavailable SARSFIELD, J MARISA MD Unavailable Unavailable SARSFIELD, J MARISA MD Unavailable Unavailable SARSFIELD, J MARISA MD Unavailable Unavailable SARSFIELD, J MARISA MD Unavailable Unavailable SARSFIELD, J MARISA MD Unavailable Unavailable SARSFIELD, J MARISA MD Unavailable Unavailable Corby WEBB MD Unavailable Unavailable Corby WEBB MD Unavailable Unavailable Zach Valdez Unavailable [phone] Zach Valdez Unavailable [phone] Zach Valdez Unavailable [phone] Zach Valdez Unavailable [phone] Zach Valdez Unavailable [phone] Zach Valdez Unavailable [phone] Re-disclosure Warning The records that you are [...] is protected by Article 27-F of the [facility] Public Health law. If you continue you may have access to information: Regarding HIV / AIDS; Provided by facilities licensed or operated by the [facility] Office of Mental Health; or Provided by the [facility] Office for People With Developmental Disabilities. If such information is present, then the following [facility] mandated warning applies: This information has [...] law may result in a fine or long term sentence or both. A general authorization for the release of medical or other information is NOT sufficient authorization for further disc losure. Allergies and Adverse Reactions Type Description Substance Reaction Status Data Source(s ) Gabapentin, Spironolactone, Metformin, Atorvastatin Ga bapentin, Spironolactone, Metformin, Atorvastatin Gabapentin, Spironolactone, Metformin, Atorvastatin active [facility] ([facility] ) Propensity to adverse reactions SPIRONOLACTONE SPIRONOLACTONE Other [facility] Propensity to adverse reactions GABAPENTIN GABAPENTIN N&V [facility] Propensity to adverse reactions EGGS OR EGG-DERIVED PRODUCTS EGGS OR EGG-DERIVED PRODUCTS Itching [facility] ospital Encounters Encounter Providers Location Date Indications Data Source(s ) Emergency Attender: MARISA PAEZ MDAdmitter: TALIA Henryer: MARISA PAEZ MD 09/11/2020 05:10:52 PM EDT Cerebral inf arction, unspecified [facility] Cerebral infarction, unspecified Emergency Attender: MARISA PAEZ MDAdmitter: TALIA Henryer: MARISA PAEZ MD 09/11/2020 05:05:55 PM EDT Cerebral inf arction, unspecified [facility] Cerebral infarction, unspecified Emergency Attender: MARISA PAEZ MDAdmitter: TALIA Torres: MARISA PAEZ MD 09/11/2020 05:05:41 PM EDT Cerebral inf arction, unspecified [facility] Cerebral infarction, unspecified Inpatient Attender: Rogelio Holt MDAt tender: LANE MOORE MDAttender: MARISA PAEZ MDAttender: Virginia Lopez DOAttender: Talia LedezmayAttender: TALIA JAMIRHRYAdmitter: TALIA JUANMLeferrer: TALIA BOWIEHRY [id number] 09/11/2020 12:00:00 AM EDT - 09/20/2020 03:50:00 PM EDT [facility] Patient discharged. 07/20/2020 01:00:00 AM EDT - 021 11:47:40 AM EDT [facility]) Outpatient Attender: Zach Valdez 06/03 03:27:53 PM EDT - 06/03/2020 04:58:24 PM EDT [facility] ) Inpatient Attender: MOON Mullen nder: SERENTIY COBB MDAttender: JOSETTE STEWART MDAttender: ANGELO WATTS MDAttender: DAVID Youssef MDAdmitter: AUDIE HernándezReferrer: DAVID Youssef MDConsultant: JOSETTE STEWART MD A-A 03/06/2020 12:00:00 AM EST - 03/10/2020 03:51:00 PM EST hepatic encephalopaty, rhabdo, AMS [facility] hepatic encephalopaty, rhabdo, AMS Patient discharged. Immunizations Vaccine Date Status Description Data Source(s) COVID-19 VACCINE 07/28/2020 12:00:00 AM EDT completed [facility] Vaccine Series Complete: YESThis Data wa s Submitted to [facility] Via [employer]. Medications Medication Brand Name Start Date Product Form Dose Route Admi nistrative Instructions Pharmacy Instructions Status Indications Reaction Description Data Source(s) 5 mg 10/09/2020 12:00:00 AM EDT tablet 30 TAKE ONE TABLET BY MOUTH EVERY DAY TAKE ONE TABLET BY MOUTH EVERY DAY SOLD: 10/15/2020 [facility] 400 mg (241.3 mg magnesium) 10/08/2020 12:00:00 AM EDT table t 14 TAKE ONE TABLET BY MOUTH TWICE A DAY FOR CONSTIPATION TAKE ONE TABLET BY MOUTH TWICE A DAY FOR CONSTIPATION SOLD: 10/15/2020 [facility] Insulin, Aspart, Human 100 UNT/ML Inject able Solution Insulin Aspart 100 UNIT/ML Subcutaneous Solution (NOVOLOG) Insulin Aspart 100 UNIT/ML Subcutaneous Solution (NOVOLOG) 09/20/2020 12:00:00 AM EDT active Use 3 times daily before meals per custom sliding scale provided. Maximum daily dose 55units. DX 11.65 [facility] 3 ML Insulin Glargine 100 UNT/ML Pen Inj cam Insulin Glargine 100 UNIT/ML Subcutaneous Solution Pen-injector (LANTUS SOLOSTAR) Insulin Glargine 100 UNIT/ML Subcutaneous Solution Pen-injector (LANTUS SOLOSTAR) 09/20/2020 12:00:00 AM EDT 35 U Subcutaneous active Inj ect 35 Units into the skin nightly Inject 35 units lantus daily [facility] quetiapine 25 MG Oral Tablet QUEtiapine (SEROquel) tab let 12.5 mg QUEtiapine (SEROquel) tablet 12.5 mg 09/19/2020 10:00:00 AM EDT 12.5 mg Oral active 12.5 mg, Oral, Nightly PRN, For agitation, Starting on 09/19/20 at 1000, For 72 hours
Hold if patient is lethargic.
[facility] Medication administered onsite Insulin Glargine 100 UNT/ML Injectable S olution insulin glargine (LANTUS) injection 35 Units insulin glargine (LANTUS) injection 35 Units 09:00:00 AM EDT 35 U Subcutaneous active 35 Units, Subcutaneous, Every morning, First dose (after last modification) on 09/19/20 at 0900, For 27 doses
For blood glucose less than 70 mg/dL: follow hypoglycemia protocol (CM ) and notify provider. For blood glucose values between 70 mg/dL and 100 mg/dL at bedtime: provide snack (15 grams of carbohydrates) with some protein. Administer FULL DOSE of insulin glargine (LANTUS) after snack. Record snack in I&O's. For blood glucose more than 400 mg/dL: notify provider
[facility] Medication administered onsite insulin lispro (HUMALOG) injection CUSTO MIZABLE DOSE INSULIN patients 1-40 Units [id number] 09/18/2020 01:00:00 PM EDT U Subcutaneous active 1-40 Units, Subcutaneous, Three Times Daily-With Meals, First dose (after last modification) on 09/18/20 at 1300, For 83 doses
Nursing MUST open the 'SQ Insulin Dosing Charts' Sidebar Report, or, the Patient Summary or Summary Report within the ED.
Patient Type: Eating Meals
<70 give (units or other) for NPO or <15 gm carbohydrates solid food or full liquid (<30 gm if only clear liquid consumed): Hypoglycemia Protocol and then, once blood glucose level > 70 give insulin dose in 71-90 row regardless of new blood glucose level.
71-90 give (units) for NPO or <15 gm carbohydrates solid food or full liquid (<30 gm if only clear liquid consumed): 0
91-130 give (units) for NPO or <15 gm carbohydrates solid food or full liquid (<30 gm if only clear liquid consumed): 0
131-150 give (units) for NPO or <15 gm carbohydrates solid food or full liquid (<30 gm if only clear liquid consumed): 0
151-200 give (units) for NPO or <15 gm carbohydrates solid food or full liquid (<30 gm if only clear liquid consumed): 4
201-250 give (units) for NPO or <15 gm carbohydrates solid food or full liquid (<30 gm if only clear liquid consumed): 6
251-300 give (units) for NPO or <15 gm carbohydrates solid food or full liquid (<30 gm if only clear liquid consumed): 8
301-350 give (units) for NPO or <15 gm carbohydrates solid food or full liquid (<30 gm if only clear liquid consumed): 10
351-400 give (units) for NPO or <15 gm carbohydrates solid food or full liquid (<30 gm if only clear liquid consumed): 12
>401 give (units) AND NOTIFY for NPO or <15 gm carbohydrates solid food or full liquid (<30 gm if only clear liquid consumed): 14
<70 give (units or other) for 15-30 gm carbohydrates solid food or full liquid (30-45 gm if only clear liquid consumed): Hypoglycemia Protocol and then, once blood glucose level > 70 give insulin dose in 71-90 row regardless of new blood glucose level.
71-90 give (units) for 15-30 gm carbohydrates solid food or full liquid (30-45 gm if only clear liquid consumed): 4
91-130 give (units) for 15-30 gm carbohydrates solid food or full liquid (30-45 gm if only clear liquid consumed): 6
131-150 give (units) for 15-30 gm carbohydrates solid food or full liquid (30-45 gm if only clear liquid consumed): 10
151-200 give (units) for 15-30 gm carbohydrates solid food or full liquid (30-45 gm if only clear liquid consumed): 12
201-250 give (units) for 15-30 gm carbohydrates solid food or full liquid (30-45 gm if only clear liquid consumed): 14
251-300 give (units) for 15-30 gm carbohydrates solid food or full liquid (30-45 gm if only clear liq uid consumed): 16
301-350 give (units) for 15-30 gm carbohydrates solid food or full liquid (30-45 gm if only clear liquid consumed): 18
351-400 give (units) for 15-30 gm carbohydrates solid food or full liquid (30-45 gm if only clear liquid consumed): 20
>401 give (units) AND NOTIFY for 15-30 gm carbohydrates solid food or full liquid (30-45 gm if only clear liquid consumed): 22
<70 give (units or other) for >30 gm carbohydrates solid food or full liquid (>45 gm if only clear liquid consumed): Hypoglycemia Protocol and then, once blood glucose level > 70 give insulin dose in 71-90 row regardless of new blood glucose level.
71-90 give (units) for >30 gm carbohydrates solid food or full liquid (>45 gm if only clear liquid consumed): 8
91-130 give (units) for >30 gm carbohydrates solid food or full liquid (>45 gm if only clear liquid consumed): 12
131-150 give (units) for >30 gm carbohydrates solid food or full liquid (>45 gm if only clear liquid consumed): 16
151-200 give (units) for >30 gm carbohydrates solid food or full liquid (>45 gm if only clear liquid consumed): 18
201-250 give (units) for >30 gm carbohydrates solid food or full liquid (>45 gm if only clear liquid consumed): 20
251-300 give (units) for >30 gm carbohydrates solid food or full liquid (>45 gm if only clear liquid consumed): 22
301-350 give (units) for >30 gm carbohydrates solid food or full liquid (>45 gm if only clear liquid consumed): 24
351-400 give (units) for >30 gm carbohydrates solid food or full liquid (>45 gm if only clear liquid consumed): 26
>401 give (units) AND NOTIFY for >30 gm carbohydrates solid food or full liquid (>45 gm if only clear liquid consumed): 28 [facility] Medication administered onsite Oxycodone Hydrochloride 5 MG Oral Tablet oxyCODONE (ROXICODONE) immediate release tablet 5 mg oxyCODONE (ROXICODONE) immediate release tablet 5 mg 09/18/2020 10:30:00 AM EDT 5 mg Oral active 5 mg, Oral, Every 12 hours, First dose on Sun09/18/20 at 1030, For 10 doses
Oxycodone immediate release is limited to 10 mg per dose. Higher doses ([facility] only) require Pain Service consultation and approval.
[facility] Medication administered onsite insulin lispro (HUMALOG) injection CUSTO MIZABLE DOSE INSULIN patients 1-40 Units [id number] 09/17/2020 06:00:00 PM EDT U Subcutaneous aborted 1-40 Units, Subcutaneous, Three Times Daily-With Meals, First dose (after last modification) on Sun09/17/20 at 1800, For 85 doses
Nursing MUST open the 'SQ Insulin Dosing Charts' Sidebar Report, or, the Patient Summary or Summary Report within the ED.
Patient Type: Eating Meals
<70 give (units or other) for NPO or <15 gm carbohydrates solid food or full liquid (<30 gm if only clear liquid consumed): Hypoglycemia Protocol and then, once blood glucose level > 70 give insulin dose in 71-90 row regardless of new blood glucose level.
71-90 give (units) for NPO or <15 gm carbohydrates solid food or full liquid (<30 gm if only clear liquid consumed): 0
91-130 give (units) for NPO or <15 gm carbohydrates solid food or full liquid (<30 gm if only clear liquid consumed): 0
131-150 give (units) for NPO or <15 gm carbohydrates solid food or full liquid (<30 gm if only clear liquid consumed): 2
151-200 give (units) for NPO or <15 gm carbohydrates solid food or full liquid (<30 gm if only clear liquid consumed): 4
201-250 give (units) for NPO or <15 gm carbohydrates solid food or full liquid (<30 gm if only clear liquid consumed): 6
251-300 give (units) for NPO or <15 gm carbohydrates solid food or full liquid (<30 gm if only clear liquid consumed): 8
301-350 give (units) for NPO or <15 gm carbohydrates solid food or full liquid (<30 gm if only clear liquid consumed): 10
351-400 give (units) for NPO or <15 gm carbohydrates solid food or full liquid (<30 gm if only clear liquid consumed): 12
>401 give (units) AND NOTIFY for NPO or <15 gm carbohydrates solid food or full liquid (<30 gm if only clear liquid consumed): 14
<70 give (units or other) for 15-30 gm carbohydrates solid food or full liquid (30-45 gm if only clear liquid consumed): Hypoglycemia Protocol and then, once blood glucose level > 70 give insulin dose in 71-90 row regardless of new blood glucose level.
71-90 give (units) for 15-30 gm carbohydrates solid food or full liquid (30-45 gm if only clear liquid consumed): 0
91-130 give (units) for 15-30 gm carbohydrates solid food or full liquid (30-45 gm if only clear liquid consumed): 5
131-150 give (units) for 15-30 gm carbohydrates solid food or full liquid (30-45 gm if only clear liquid consumed): 8
151-200 give (units) for 15-30 gm carbohydrates solid food or full liquid (30-45 gm if only clear liquid consumed): 10
201-250 give (units) for 15-30 gm carbohydrates solid food or full liquid (30-45 gm if only clear liquid consumed): 12
251-300 give (units) for 15-30 gm carbohydrates solid food or full liquid (30-45 gm if only clear liq uid consumed): 14
301-350 give (units) for 15-30 gm carbohydrates solid food or full liquid (30-45 gm if only clear liquid consumed): 16
351-400 give (units) for 15-30 gm carbohydrates solid food or full liquid (30-45 gm if only clear liquid consumed): 18
>401 give (units) AND NOTIFY for 15-30 gm carbohydrates solid food or full liquid (30-45 gm if only clear liquid consumed): 20
<70 give (units or other) for >30 gm carbohydrates solid food or full liquid (>45 gm if only clear liquid consumed): Hypoglycemia Protocol and then, once blood glucose level > 70 give insulin dose in 71-90 row regardless of new blood glucose level.
71-90 give (units) for >30 gm carbohydrates solid food or full liquid (>45 gm if only clear liquid consumed): 1
91-130 give (units) for >30 gm carbohydrates solid food or full liquid (>45 gm if only clear liquid consumed): 6
131-150 give (units) for >30 gm carbohydrates solid food or full liquid (>45 gm if only clear liquid consumed): 14
151-200 give (units) for >30 gm carbohydrates solid food or full liquid (>45 gm if only clear liquid consumed): 16
201-250 give (units) for >30 gm carbohydrates solid food or full liquid (>45 gm if only clear liquid consumed): 18
251-300 give (units) for >30 gm carbohydrates solid food or full liquid (>45 gm if only clear liquid consumed): 20
301-350 give (units) for >30 gm carbohydrates solid food or full liquid (>45 gm if only clear liquid consumed): 22
351-400 give (units) for >30 gm carbohydrates solid food or full liquid (>45 gm if only clear liquid consumed): 24
>401 give (units) AND NOTIFY for >30 gm carbohydrates solid food or full liquid (>45 gm if only clear liquid consumed): 26 [facility] Medication administered onsite Acetaminophen 325 MG Oral Tablet acetaminophen (TYLENO L) tablet 650 mg acetaminophen (TYLENOL) tablet 650 mg 09/17/2020 11:58:43 AM EDT 65 0 mg Oral active 650 mg, Oral, E very 6 hours PRN, Mild Pain (Pain Scale Score 1- 3), Moderate Pain (Pain Scale Score 4-6), Starting on Sun09/17/20 at 1158, For 30 days
Maximum daily dose of acetaminophen is 3,000 mg from all sources in 24 hours.
[facility] Medication administered onsite Ozempic (0.25 or 0.5 MG/DOSE) 2 MG/1.5ML Subcutaneous Solution Pen-injector (semaglutide) [id number] 09/17/2020 12:00:00 AM EDT 0.25 mg Subcut aneous active Inject 0.25 mg into the skin every 7 (seven) days [facility] Sodium Bicarbonate 650 MG Oral Tablet sodium bicarbona te tablet 650 mg sodium bicarbonate tablet 650 mg 09/16/2020 05:00:00 PM EDT 650 mg Oral active 650 mg, Oral, Three Times Daily Standar d, First dose on Sun09/16/20 at 1700, For 20 doses [facility] Medication administered onsite insulin lispro (HUMALOG) injection CUSTO MIZABLE DOSE INSULIN patients 1-40 Units [id number] 09/16/2020 09:00:00 AM EDT U Subcutaneous aborted 1-40 Units, Subcutaneous, Three Times Daily-With Meals, First dose (after last modification) on Sun09/16/20 at 0900, For 30 days
Nursing MUST open the 'SQ Insulin Dosing Charts' Sidebar Report, or, the Patient Summary or Summary Report within the ED.
Patient Type: Eating Meals
<70 give (units or other) for NPO or <15 gm carbohydrates solid food or full liquid (<30 gm if only clear liquid consumed): Hypoglycemia Protocol and then, once blood glucose level > 70 give insulin dose in 71-90 row regardless of new blood glucose level.
71-90 give (units) for NPO or <15 gm carbohydrates solid food or full liquid (<30 gm if only clear liquid consumed): 0
91-130 give (units) for NPO or <15 gm carbohydrates solid food or full liquid (<30 gm if only clear liquid consumed): 0
131-150 give (units) for NPO or <15 gm carbohydrates solid food or full liquid (<30 gm if only clear liquid consumed): 1
151-200 give (units) for NPO or <15 gm carbohydrates solid food or full liquid (<30 gm if only clear liquid consumed): 4
201-250 give (units) for NPO or <15 gm carbohydrates solid food or full liquid (<30 gm if only clear liquid consumed): 6
251-300 give (units) for NPO or <15 gm carbohydrates solid food or full liquid (<30 gm if only clear liquid consumed): 8
301-350 give (units) for NPO or <15 gm carbohydrates solid food or full liquid (<30 gm if only clear liquid consumed): 10
351-400 give (units) for NPO or <15 gm carbohydrates solid food or full liquid (<30 gm if only clear liquid consumed): 12
>401 give (units) AND NOTIFY for NPO or <15 gm carbohydrates solid food or full liquid (<30 gm if only clear liquid consumed): 14
<70 give (units or other) for 15-30 gm carbohydrates solid food or full liquid (30-45 gm if only clear liquid consumed): Hypoglycemia Protocol and then, once blood glucose level > 70 give insulin dose in 71-90 row regardless of new blood glucose level.
71-90 give (units) for 15-30 gm carbohydrates solid food or full liquid (30-45 gm if only clear liquid consumed): 0
91-130 give (units) for 15-30 gm carbohydrates solid food or full liquid (30-45 gm if only clear liquid consumed): 1
131-150 give (units) for 15-30 gm carbohydrates solid food or full liquid (30-45 gm if only clear liquid consumed): 6
151-200 give (units) for 15-30 gm carbohydrates solid food or full liquid (30-45 gm if only clear liquid consumed): 8
201-250 give (units) for 15-30 gm carbohydrates solid food or full liquid (30-45 gm if only clear liquid consumed): 10
251-300 give (units) for 15-30 gm carbohydrates solid food or full liquid (30-45 gm if only clear liq uid consumed): 12
301-350 give (units) for 15-30 gm carbohydrates solid food or full liquid (30-45 gm if only clear liquid consumed): 14
351-400 give (units) for 15-30 gm carbohydrates solid food or full liquid (30-45 gm if only clear liquid consumed): 16
>401 give (units) AND NOTIFY for 15-30 gm carbohydrates solid food or full liquid (30-45 gm if only clear liquid consumed): 18
<70 give (units or other) for >30 gm carbohydrates solid food or full liquid (>45 gm if only clear liquid consumed): Hypoglycemia Protocol and then, once blood glucose level > 70 give insulin dose in 71-90 row regardless of new blood glucose level.
71-90 give (units) for >30 gm carbohydrates solid food or full liquid (>45 gm if only clear liquid consumed): 1
91-130 give (units) for >30 gm carbohydrates solid food or full liquid (>45 gm if only clear liquid consumed): 5
131-150 give (units) for >30 gm carbohydrates solid food or full liquid (>45 gm if only clear liquid consumed): 12
151-200 give (units) for >30 gm carbohydrates solid food or full liquid (>45 gm if only clear liquid consumed): 14
201-250 give (units) for >30 gm carbohydrates solid food or full liquid (>45 gm if only clear liquid consumed): 16
251-300 give (units) for >30 gm carbohydrates solid food or full liquid (>45 gm if only clear liquid consumed): 18
301-350 give (units) for >30 gm carbohydrates solid food or full liquid (>45 gm if only clear liquid consumed): 20
351-400 give (units) for >30 gm carbohydrates solid food or full liquid (>45 gm if only clear liquid consumed): 22
>401 give (units) AND NOTIFY for >30 gm carbohydrates solid food or full liquid (>45 gm if only clear liquid consumed): 24 [facility] Medication administered onsite Insulin Glargine 100 UNT/ML Injectable S olution insulin glargine (LANTUS) injection 28 Units insulin glargine (LANTUS) injection 28 Units 09:00:00 AM EDT 28 U Subcutaneous aborted 28 Units, Subcutaneous, Every morning, First dose (after last modification) on Ann 09/16/20 at 0900, For 30 days
For blood glucose less than 70 mg/dL: follow hypoglycemia protocol ( ) and notify provider. For blood glucose values between 70 mg/dL and 100 mg/dL at bedtime: provide snack (15 grams of carbohydrates) with some protein. Administer FULL DOSE of insulin glargine (LANTUS) after snack. Record snack in I&O's. For blood glucose more than 400 mg/dL: notify provider
[facility] Medication administered onsite Glucose 0.417 MG/MG Oral Gel glucose (GLUTOSE) 40 % or al gel 15 g glucose (GLUTOSE) 40 % oral gel 15 g 09/16/2020 08:35:03 AM EDT 15 g Oral active 15 g, Oral, PRN, Low blood s ugar, for gluose 55-69 mg/dl and able to take PO, Starting on Ann 09/16/20 at 0835, For 30 days [facility] Medication administered onsite Glucagon 1 MG Injection glucagon (human recombinant) ( GLUCAGEN) injection 1 mg glucagon (human recombinant) (GLUCAGEN) injection 1 mg 09/16/2020 08:35:03 AM EDT 1 mg Intramuscular active 1 mg, Intramuscular, PRN, for glucose <55 without IV access, Starting on Ann 09/16/20 at 0835, For 30 days [facility] Medication administered onsite dextrose 50 % IV solution 25 mL [id number] 09/16/2020 08:35:03 AM E DT 25 mL Intravenous active 25 mL, Intrav enous, PRN, Other, blood glucose <55, Starting on Sun09/16/20 at 0835, For 30 days
Not for midline administration.
[facility] Medication administered onsite quetiapine 25 MG Oral Tablet QUEtiapine (SEROquel) tab let 12.5 mg QUEtiapine (SEROquel) tablet 12.5 mg 09/15/2020 09:00:00 PM EDT 12.5 mg Oral aborted 12.5 mg, Oral, Every evening , First dose on Sun09/15/20 at 2100, For 30 days
Hold if patient is lethargic.
[facility] Medication administered onsite insulin lispro (HumaLOG) injection MEDIU M DOSE EATING INSULIN patients 1-16 Units [id number] 09/15/2020 01:00:00 PM EDT U Subcutaneous aborted 1-16 Units, Subcutaneous, Three Times Daily-With Meals, First dose on Sun09/15/20 at 1300, For 30 days
Nursing MUST open the 'SQ Insulin Dosing Charts' Sidebar Report, or, the Patient Summary or Summary Report within the ED.
[facility] Medication administered onsite Spironolactone 25 MG Oral Tablet spironolactone (ALDAC TONE) tablet 25 mg spironolactone (ALDACTONE) tablet 25 mg 09/15/2020 09:00:00 AM EDT 25 mg Oral active 25 mg, Oral, Da lela Standard, First dose (after last modification) on Sun09/15/20 at 0900, For 27 doses [facility] Medication administered onsite Melatonin 5 MG Oral Tablet melatonin tablet 10 mg melatonin tablet 10 mg 09/14/2020 10:00:00 PM EDT 10 mg Oral active 10 mg, Oral, Nightly, First dose on Sun09/14/20 at 2200, For 30 days [facility] Medication administered onsite Insulin Glargine 100 UNT/ML Injectable S olution insulin glargine (LANTUS) injection 32 Units insulin glargine (LANTUS) injection 32 Units 10:00:00 PM EDT 32 U Subcutaneous aborted 32 Units, Subcutaneous, Nightly, First dose (after last modification) on Sun09/14/20 at 2200, For 28 doses
For blood glucose less than 70 mg/dL: follow hypoglycemia protocol ( ) and notify provider. For blood glucose values between 70 mg/dL and 100 mg/dL at bedtime: provide snack (15 grams of carbohydrates) with some protein. Administer FULL DOSE of insulin glargine (LANTUS) after snack. Record snack in I&O's. For blood glucose more than 400 mg/dL: notify provider
[facility] Medication administered onsite insulin lispro (HumaLOG) injection LOW DOSE EATING INS ULIN patients 1-8 Units [id number] 09/14/2020 06:00:00 PM EDT U Subcutaneous aborted 1-8 Units, Subcutaneous, Three Times Daily-With Meals, First dose on Sun09/14/20 at 1800, For 30 days
Nursing MUST open the 'SQ Insulin Dosing Charts' Sidebar Report, or, the Patient Summary or Summary Report within the ED.
[facility] Medication administered onsite haloperidol lactate (HALDOL) injection 1 mg [id number] 09/14/2020 05:30:00 PM EDT 1 mg Intramuscular completed 1 mg, Intramuscular, Once, On Sun09/14/20 at 1730, For 1 dose [facility] Medication administered onsite NaCl infusion 0.9 % [id number] 09/14/2020 03:30:00 PM EDT Intravenous completed at 500 mL/hr, Intrav enous, Continuous, Starting on Sun09/14/20 at 1530, For 2 hours [facility] Medication administered onsite 0.4 ML Enoxaparin sodium 100 MG/ML Prefi lled Syringe enoxaparin sodium (LOVENOX) injection 40 mg enoxaparin sodium (LOVENOX) injection 40 mg 09/14/2020 09:00:00 AM EDT 40 mg Subcutaneous active 40 mg, Subcutaneous, Daily Standard, First dose on Sun09/14/20 at 0900, For 30 days [facility] Medication administered onsite sodium chloride 0.9 % bolus 500 mL [id number] 09/14/2020 01:45:00 AM EDT 500 mL Intravenous completed 500 mL, Intravenous, Once, On Sun09/14/20 at 0145, For 1 dose [facility] Medication administered onsite NaCl infusion 0.9 % [id number] 09/14/2020 01:45:00 AM EDT Intravenous aborted at 75 mL/hr, Intrave nous, Continuous, Starting on Sun09/14/20 at 0145, For 24 hours [facility] Medication administered onsite Melatonin 5 MG Oral Tablet melatonin tablet 5 mg melatonin t ablet 5 mg 09/13/2020 10:00:00 PM EDT 5 mg Oral aborted 5 mg, Oral, Nightly, First dose on Sun09/13/20 at 2200, For 30 days [facility] Medication administered onsite atorvastatin 40 MG Oral Tablet atorvastatin (LIPITOR) tablet 80 mg atorvastatin (LIPITOR) tablet 80 mg 09/13/2020 09:00:00 PM EDT 80 mg Oral active 80 mg, Oral, Every evening, First dose on Sun09/13/20 at 2100, For 30 days [facility] Medication administered onsite lactated ringers bolus 1,000 mL [id number] 09/13/2020 08:45:00 PM EDT 1000 mL Intravenous completed 1,000 mL , Intravenous, Once, On Sun09/13/20 at 2045, For 1 dose [facility] Medication administered onsite insulin lispro (HUMALOG) injection CUSTO MIZABLE DOSE INSULIN patients 1-32 Units [id number] 09/13/2020 06:00:00 PM EDT U Subcutaneous aborted 1-32 Units, Subcutaneous, Three Times Daily-With Meals, First dose on Sun09/13/20 at 1800, For 30 days
Nursing MUST open the 'SQ Insulin Dosing Charts' Sidebar Report, or, the Patient Summary or Summary Report within the ED.
Patient Type: Eating Meals
<70 give (units or other) for NPO or <15 gm carbohydrates solid food or full liquid (<30 gm if only clear liquid consumed): Hypoglycemia Protocol and then, once blood glucose level > 70 give insulin dose in 71-90 row regardless of new blood glucose level.
71-90 give (units) for NPO or <15 gm carbohydrates solid food or full liquid (<30 gm if only clear liquid consumed): 0
91-130 give (units) for NPO or <15 gm carbohydrates solid food or full liquid (<30 gm if only clear liquid consumed): 0
131-150 give (units) for NPO or <15 gm carbohydrates solid food or full liquid (<30 gm if only clear liquid consumed): 2
151-200 give (units) for NPO or <15 gm carbohydrates solid food or full liquid (<30 gm if only clear liquid consumed): 5
201-250 give (units) for NPO or <15 gm carbohydrates solid food or full liquid (<30 gm if only clear liquid consumed): 7
251-300 give (units) for NPO or <15 gm carbohydrates solid food or full liquid (<30 gm if only clear liquid consumed): 9
301-350 give (units) for NPO or <15 gm carbohydrates solid food or full liquid (<30 gm if only clear liquid consumed): 11
351-400 give (units) for NPO or <15 gm carbohydrates solid food or full liquid (<30 gm if only clear liquid consumed): 13
>401 give (units) AND NOTIFY for NPO or <15 gm carbohydrates solid food or full liquid (<30 gm if only clear liquid consumed): 15
<70 give (units or other) for 15-30 gm carbohydrates solid food or full liquid (30-45 gm if only clear liquid consumed): Hypoglycemia Protocol and then, once blood glucose level > 70 give insulin dose in 71-90 row regardless of new blood glucose level.
71-90 give (units) for 15-30 gm carbohydrates solid food or full liquid (30-45 gm if only clear liquid consumed): 4
91-130 give (units) for 15-30 gm carbohydrates solid food or full liquid (30-45 gm if only clear liquid consumed): 6
131-150 give (units) for 15-30 gm carbohydrates solid food or full liquid (30-45 gm if only clear liq uid consumed): 8
151-200 give (units) for 15-30 gm carbohydrates solid food or full liquid (30-45 gm if only clear liquid consumed): 10
201-250 give (units) for 15-30 gm carbohydrates solid food or full liquid (30-45 gm if only clear liquid consumed): 12
251-300 give (units) for 15-30 gm carbohydrates solid food or full liquid (30-45 gm if only clear liquid consumed): 14
301- 350 give (units) for 15-30 gm carbohydrates solid food or full liquid (30-45 gm if only clear liquid consumed): 16
351-400 give (units) for 15-30 gm carbohydrates solid food or full liquid (30-45 gm if only clear liquid consumed): 18
>401 give (units) AND NOTIFY for 15-30 gm carbohydrates solid food or full liquid (30-45 gm if only clear liquid consumed): 20
<70 give (units or other) for >30 gm carbohydrates solid food or full liquid (>45 gm if only clear liquid consumed): Hypoglycemia Protocol and then, once blood glucose level > 70 give insulin dose in 71-90 row regardless of new blood glucose level.
71-90 give (units) for >30 gm carbohydrates solid food or full liquid (>45 gm if only clear liquid consumed): 8
91-130 give (units) for >30 gm carbohydrates solid food or full liquid (>45 gm if only clear liquid consumed): 10
131-150 give (units) for >30 gm carbohydrates solid food or full liquid (>45 gm if only clear liquid consumed): 14
151-200 give (units) for >30 gm carbohydrates solid food or full liquid (>45 gm if only clear liquid consumed): 17
201-250 give (units) for >30 gm carbohydrates solid food or full liquid (>45 gm if only clear liquid consumed): 20
251-300 give (units) for >30 gm carbohydrates solid food or full liquid (>45 gm if only clear liquid consumed): 23
301-350 give (units) for >30 gm carbohydrates solid food or full liquid (>45 gm if only clear liquid consumed): 26
351-400 give (units) for >30 gm carbohydrates solid food or full liquid (>45 gm if only clear liquid consumed): 29
>401 give (units) AND NOTIFY for >30 gm carbohydrates solid food or full liquid (>45 gm if only clear liquid consumed): 32 [facility] Medication administered onsite lactated ringers bolus 1,000 mL [id number] 09/13/2020 05:30:00 PM EDT 1000 mL Intravenous completed 1,000 mL , Intravenous, Once, On Sun09/13/20 at 1730, For 1 dose [facility] Medication administered onsite haloperidol lactate (HALDOL) injection 1 mg [id number] 09/13/2020 05:30:00 PM EDT 1 mg Intramuscular completed 1 mg, Intramuscular, Once, On Sun09/13/20 at 1730, For 1 dose [facility] Medication administered onsite Metoprolol Tartrate 1 MG/ML Injectable S olution metoprolol (LOPRESSOR) injection 2.5 mg metoprolol (LOPRESSOR) injection 2.5 mg 09/13/2020 05:28:33 PM E DT 2.5 mg Intravenous active 2.5 mg, Intravenous, Every 6 hours PRN, High Blood Pressure, Starting on Sun09/13/20 at 1728, For 30 days
Dilute in 25 or 50 mL NS and administer over 30 minutes. If giving IVP, must be ad ministered under the direct supervision of a medical provider and patient on a surveillance monitor.
[facility] Medication administered onsite Lactulose 667 MG/ML Oral Solution lactulose (CHRONULAC ) solution 45 mL lactulose (CHRONULAC) solution 45 mL 09/13/2020 05:00:00 PM EDT 45 mL Oral active 45 mL, Oral, Three Times Daily Standard , First dose (after last modification) on Sun09/13/20 at 1700, For 30 days
Titrate to 3 bowel movements daily
[facility] Medication administered onsite Insulin Glargine 100 UNT/ML Injectable S olution insulin glargine (LANTUS) injection 10 Units insulin glargine (LANTUS) injection 10 Units 03:00:00 PM EDT 10 U Subcutaneous active 10 Units, Subcutaneous, Once, On Sun09/13/20 at 1500, For 1 dose
For blood glucose less than 70 mg/dL: follow hypoglycemia protocol ( H-) and notify provider. For blood glucose values between 70 mg/dL and 100 mg/dL at bedtime: provide snack (15 grams of carbohydrates) with some protein. Administer FULL DOSE of insulin glargine (LANTUS) after snack. Record snack in I&O's. For blood glucose more than 400 mg/dL: notify provider
[facility] Medication administered onsite insulin lispro (HumaLOG) injection HIGH DOSE EATING IN SULIN patients 1-22 Units [id number] 09/13/2020 01:00:00 PM EDT U Subcutaneous aborted 1-22 Units, Subcutaneous, Three Times Daily-With Meals, First dose on Sun09/13/20 at 1300, For 30 days
Nursing MUST open the 'SQ Insulin Dosing Charts' Sidebar Report, or, the Patient Summary or Summary Report within the ED.
[facility] Medication administered onsite haloperidol lactate (HALDOL) injection 1 mg [id number] 09/12/2020 10:15:00 PM EDT 1 mg Intramuscular completed 1 mg, Intramuscular, Once, On 09/12/20 at 2215, For 1 dose [facility] Medication administered onsite Insulin Glargine 100 UNT/ML Injectable S olution insulin glargine (LANTUS) injection 32 Units insulin glargine (LANTUS) injection 32 Units 10:00:00 PM EDT 32 U Subcutaneous aborted 32 Units, Subcutaneous, Nightly, First dose on 09/12/20 at 2200, For 30 days
For blood glucose less than 70 mg/dL: follow hypoglycemia protocol ( H-) and notify provider. For blood glucose values between 70 mg/dL and 100 mg/dL at bedtime: provide snack (15 grams of carbohydrates) with some protein. Administer FULL DOSE of insulin glargine (LANTUS) after snack. Record snack in I&O's. For blood glucose more than 400 mg/dL: notify provider
[facility] Medication administered onsite Aspirin 81 MG Chewable Tablet aspirin chewable tablet 81 mg aspirin chewable tablet 81 mg 09/12/2020 06:45:00 PM EDT 81 mg Oral activ e 81 mg, Oral, Daily Standard, First dose on 09/12/20 at 1845, For 30 days
Chew tablet before swallowing.
[facility] Medication administered onsite insulin lispro (HumaLOG) injection MEDIU M DOSE EATING INSULIN patients 1-16 Units [id number] 09/12/2020 06:00:00 PM EDT U Subcutaneous aborted 1-16 Units, Subcutaneous, Three Times Daily-With Meals, First dose on 09/12/20 at 1800, For 30 days
Nursing MUST open the 'SQ Insulin Dosing Charts' Sidebar Report, or, the Patient Summary or Summary Report within the ED.
[facility] Medication administered onsite 1 ML Lorazepam 2 MG/ML Injection LORazepam (ATIVAN) 2 MG/ML injection LORazepam (ATIVAN) 2 MG/ML injection 09/12/2020 05:09:22 PM EDT completed Starting on 09/12/20 at 1709, For 1 dose
Dex [place]: cabinet override
[facility] Medication administered onsite Lactulose 667 MG/ML Oral Solution lactulose (CHRONULAC ) solution 30 mL lactulose (CHRONULAC) solution 30 mL 09/12/2020 05:00:00 PM EDT 30 mL Oral aborted 30 mL, Oral, Four Times Tracy ly Standard, First dose (after last modification) on 09/12/20 at 1700, For 3 days [facility] Medication administered onsite Insulin Lispro 100 UNT/ML Injectable Xenia ution insulin lispro (HumaLOG) injection 12 Units insulin lispro (HumaLOG) injection 12 Units 09/12/2020 04:00 :00 PM EDT 12 U Subcutaneous completed 12 Units, Subcutaneous, Once, On 09/12/20 at 1600, For 1 dose
If patient blood glucose is less than 70 mg/dL - follow the hypoglycemia procedure CM H-09. If patient blood glucose is more than 400 mg/dL - notify the provider.
[facility] Medication administered onsite albuterol (PROVENTIL HFA) inhaler 2 puff [id number] 09/12/2020 03:59:11 PM EDT 2 {puff} Inhalation active 2 pu ff, Inhalation, Every 6 hours PRN, Wheezing, Starting on 09/12/20 at 1559, For 9 days 16 hours
Shake the inhaler well before each spray.
[facility] Medication administered onsite metoprolol (LOPRESSOR) split tablet 12.5 mg [id number] 09/12/2020 09:00:00 AM EDT 12.5 mg Oral active 12.5 mg, Oral, 2 Times Daily, First dose on 09/12/20 at 0900, For 30 days [facility] Medication administered onsite Spironolactone 25 MG Oral Tablet spironolactone (ALDAC TONE) tablet 100 mg spironolactone (ALDACTONE) tablet 100 mg 09/12/2020 09:00:00 AM EDT 100 mg Oral aborted 100 mg, Oral, Daily Standard, First dose on 09/12/20 at 0900, For 30 days [facility] Medication administered onsite rifaximin 550 MG Oral Tablet rifAXIMin (XIFAXAN) table t 550 mg rifAXIMin (XIFAXAN) tablet 550 mg 09/12/2020 09:00:00 AM EDT 550 mg Oral active 550 mg, Oral, 2 Times Daily, First dose on 09/12/20 at 0900, For 30 days [facility] Medication administered onsite Thiamine 100 MG Oral Tablet thiamine (B-1) tablet 100 mg thiamine (B-1) tablet 100 mg 09/12/2020 09:00:00 AM EDT 100 mg Oral active 100 mg, Oral, Daily Standard, First dose on 09/12/20 at 0900, For 30 days [facility] Medication administered onsite Folic Acid 1 MG Oral Tablet folic acid (FOLVITE) table t 1 mg folic acid (FOLVITE) tablet 1 mg 09/12/2020 09:00:00 AM EDT 1 mg Oral active 1 mg, Oral, Daily Standard, First dose on 09/12/20 at 0900, For 30 days [facility] Medication administered onsite pantoprazole 40 MG Delayed Release Oral Tablet pantoprazole (PROTONIX) EC tablet 40 mg pantoprazole (PROTONIX) EC tablet 40 mg 09/12/2020 07:30:00 AM E DT 40 mg Oral active 40 mg, Ora l, Two times daily before breakfast and dinner, First dose on 09/12/20 at 0730, For 30 days
Do not crush or chew
[facility] Medication administered onsite Lactulose 667 MG/ML Oral Solution lactulose (CHRONULAC ) solution 30 mL lactulose (CHRONULAC) solution 30 mL 09/12/2020 12:39:02 AM EDT 30 mL Oral aborted 30 mL, Oral, Three Times Da lela-PRN, titrate to 3-4 BM a day, Starting on 09/12/20 at 0039, For 30 days [facility] Medication administered onsite sodium chloride infusion 0.9 % [id number] 09/11/2020 05:45:00 PM ED T 50 mL Intravenous completed Intravenous, Once, On 09/11/20 at 1745, For 1 dose
After completion of Alteplase flush line with 50 ml NS at the same rate as the Alteplase infusion.
[facility] Medication administered onsite lactated ringers bolus 500 mL [id number] 09/11/2020 05:30:00 PM EDT 500 mL Intravenous completed 500 mL, Intra venous, Once, On 09/11/20 at 1730, For 1 dose [facility] Medication administered onsite Insulin Aspart FlexPen 100 UNIT/ML Insulin Aspart FlexPen 01:00:00 AM EDT completed NETSMAR T ([facility]) Lantus SoloStar 100 UNIT/ML Lantus SoloStar 07/20/2020 01:00:00 AM EDT 25.0 {unit} completed [facility] ([facility]) Aspirin EC 81 MG Aspirin EC 07/20/2020 01:00:00 AM EDT completed [facility] ([facility] ) Capsaicin 0.025 % Capsaicin 07/20/2020 01:00:00 AM EDT completed [facility] ([facility] ) Ergocal 2500 UNIT Ergocal 07/20/2020 01:00:00 AM EDT completed [facility] ([facility]) Folic Acid 1 MG Folic Acid 07/20/2020 01:00:00 AM EDT completed [facility] ([facility]) Lactulose 10 GM/15ML Lactulose 07/20/2020 01:00:00 AM EDT 40.0 { ml} completed [facility] ([facility]) Metoprolol Tartrate 25 MG Metoprolol Tartrate 07/20/2020 01:00:00 A M EDT 0.5 {tablet} completed [facility] ([facility]) Multi Vitamin Multi Vitamin 07/20/2020 01:00:00 AM EDT completed [facility] ([facility] ) Pantoprazole Sodium 40 MG Pantoprazole Sodium 07/20/2020 01:00:00 AM E DT completed [facility] ([facility]) Pregabalin 150 MG Pregabalin 07/20/2020 01:00:00 AM EDT completed [facility] ([facility] ) Xifaxan 550 MG Xifaxan 07/20/2020 01:00:00 AM EDT completed [facility] ([facility]) Spironolactone 100 MG Spironolactone 07/20/2020 01:00:00 AM EDT completed [facility] ([facility]) Thiamine HCl 100 MG Thiamine HCl 07/20/2020 01:00:00 AM EDT completed [facility] ([facility]) oxyCODONE HCl 5 MG oxyCODONE HCl 07/20/2020 01:00:00 AM EDT completed [facility] ([facility]) Spironolactone 100 MG Oral Tablet Spironolactone 100 M G Oral Tablet (ALDACTONE) Spironolactone 100 MG Oral Tablet (ALDACTONE) 03/11/2020 12:00:00 AM EST 100 mg Oral active Take 1 tablet by mouth d [facility] Furosemide 40 MG Oral Tablet Furosemide 40 MG Oral Tab let (LASIX) Furosemide 40 MG Oral Tablet (LASIX) 03/11/2020 12:00:00 AM EST 40 mg Oral active Take 1 tablet by mouth daily [facility] Insulin Glargine 100 UNT/ML Injectable S [...] FULL DOSE of insulin glargine (LANTUS) after snack. Record snack in I&O's. For blood glucose more than 400 mg/dL: notify provider
[facility] Medication administered onsite Furosemide 40 MG Oral Tablet furosemide (LASIX) tablet 40 mg furosemide (LASIX) tablet 40 mg 03/09/2020 09:00:00 AM EST 40 mg Oral activ e 40 mg, Oral, Daily Standard, First dose on Sun03/09/20 at 0900, For 30 days [facility] Medication administered onsite Spironolactone 25 MG Oral Tablet spironolactone (ALDAC TONE) tablet 100 mg spironolactone (ALDACTONE) tablet 100 mg 03/09/2020 09:00:00 AM EST 100 mg Oral active 100 mg, Oral, Daily Standard, First dose on Sun03/09/20 at 0900, For 30 days [facility] Medication administered onsite Insulin Glargine 100 UNT/ML Injectable S olution insulin glargine (LANTUS) injection 24 Units insulin glargine (LANTUS) injection 24 Units 10:00:00 PM EST 24 U Subcutaneous aborted 24 Units, Subcutaneous, Nightly, First dose (after last modification) on Sun03/08/20 at 2200, For 28 doses
For blood glucose less than 70 mg/dL: follow hypoglycemia protocol ( H-) and notify provider. For blood glucose values between 70 mg/dL and 100 mg/dL at bedtime: provide snack (15 grams of carbohydrates) with some protein. Administer FULL DOSE of insulin glargine (LANTUS) after snack. Record snack in I&O's. For blood glucose more than 400 mg/dL: notify provider
[facility] Medication administered onsite Lactulose 667 MG/ML Oral Solution lactulose (CHRONULAC ) solution 30 mL lactulose (CHRONULAC) solution 30 mL 03/08/2020 01:45:00 PM EST 30 mL Oral completed 30 mL, Oral, Every 6 hours, First dose (after last reorder) on Sun03/08/20 at 1345, For 1 dose
Titrate to 3-4 bowel movements per day
[facility] Medication administered onsite furosemide (LASIX) injection 40 mg [id number] 03/08/2020 05:45:00 AM EST 40 mg Intravenous completed 40 mg, I ntravenous, Once, Sun03/08/20 at 0545, For 1 dose
Notify provider if systolic blood pressure less than: 90 [facility] Medication administered onsite Acetaminophen 325 MG [...] mg from all sources in 24 hours.
[facility] Medication administered onsite Docusate Sodium 100 MG Oral Capsule docusate sodium (C OLACE) capsule 100 mg docusate sodium (COLACE) capsule 100 mg 03/07/2020 09:00:00 AM EST 100 mg Oral active 100 mg, Oral, 2 Times Daily, First dose on 03/07/20 at 0900, For 30 days [facility] Medication administered onsite rifaximin 550 MG Oral Tablet rifAXIMin (XIFAXAN) table t 550 mg rifAXIMin (XIFAXAN) tablet 550 mg 03/07/2020 09:00:00 AM EST 550 mg Oral active 550 mg, Oral, 2 Times Daily, First dose on 03/07/20 at 0900, For 30 days [facility] Medication administered onsite Thiamine 100 MG Oral Tablet thiamine (B-1) tablet 100 mg thiamine (B-1) tablet 100 mg 03/07/2020 09:00:00 AM EST 100 mg Oral active 100 mg, Oral, Daily Standard, First dose on 03/07/20 at 0900, For 30 days [facility] Medication administered onsite Capsaicin 1 MG/ML Topical Cream capsaicin (CAPZASIN HP ) 0.1 % topical cream capsaicin (CAPZASIN HP) 0.1 % topical cream 03/07/2020 09:00:00 AM EST Topical active Topical, Three Times Daily Standard, First dose on 03/07/20 at 0900, For 30 days
Apply to back, legs and shoulders
[facility] Medication administered onsite NaCl infusion 0.9 % [id number] 03/07/2020 09:00:00 AM EST Intravenous aborted at 100 mL/hr, Intrav enous, Continuous, Starting 03/07/20 at 0900, For 24 hours [facility] Medication administered onsite 0.4 ML Enoxaparin [...] hours after epidural catheter has been removed.
[facility] Medication administered onsite Lisinopril 5 MG Oral Tablet lisinopril (PRINIVIL,ZESTR IL) tablet 5 mg lisinopril (PRINIVIL,ZESTRIL) tablet 5 mg 03/07/2020 09:00:00 AM EST 5 mg Or al active 5 mg, Oral, Daily Standard, Fir st dose on 03/07/20 at 0900, For 30 days [facility] Medication administered onsite metoprolol (LOPRESSOR) split tablet 12.5 mg [id number] 03/07/2020 09:00:00 AM EST 12.5 mg Oral active 12.5 mg, Oral, Daily Standard, First dose (after last modification) on 03/07/20 at 0900, For 30 days [facility] Medication administered onsite insulin lispro (HumaLOG) injection MEDIU M DOSE EATING INSULIN patients 1-16 Units [id number] 03/07/2020 08:00:00 AM EST U Subcutaneous active 1-16 Units, Subcutaneous, Three Times Daily-With Meals, First dose on 03/07/20 at 0800, For 30 days
Nursing MUST open the 'SQ Insulin Dosing Charts' Sidebar Report, or, the Patient Summary or Summary Report within the ED.
[facility] Medication administered onsite Ceftriaxone 2000 MG Injection cefTRIAXone (ROCEPHIN) I VPB (premix) 2 g cefTRIAXone (ROCEPHIN) IVPB (premix) 2 g 03/06/2020 11:15:00 PM EST 2 g Intravenous completed 2 g, Intraven ous, at 100 mL/hr, Every 24 hours, First dose (after last modification) on 03/06/20 at 2315, For 1 dose
Discouraged Uses: Empiric treatment of post-surgical meningitis (ceftazidime preferred)
[facility] Medication administered onsite Lactulose 667 MG/ML Oral Solution lactulose (CHRONULAC ) solution 40 mL lactulose (CHRONULAC) solution 40 mL 03/06/2020 11:00:00 PM EST 40 mL Oral aborted 40 mL, Oral, Three Times Da lela Standard, First dose (after last modification) on 03/06/20 at 2300, For 30 days
Titrate to 3-4 bowel movements per day
[facility] Medication administered onsite NaCl infusion 0.9 % [id number] 03/06/2020 10:00:00 PM EST Intravenous aborted at 100 mL/hr, Intrav enous, Continuous, Starting 03/06/20 at 2200, For 24 hours [facility] Medication administered onsite Insulin Glargine 100 UNT/ML Injectable S olution insulin glargine (LANTUS) injection 10 Units insulin glargine (LANTUS) injection 10 Units 10:00:00 PM EST 10 U Subcutaneous aborted 10 Units, Subcutaneous, Nightly, First dose on 03/06/20 at 2200, For 30 days
For blood glucose less than 70 mg/dL: follow hypoglycemia protocol ( ) and notify provider.&amp ;nbsp; For blood glucose values between 70 mg/dL and 100 mg/dL at bedtime: provide snack (15 grams of carbohydrates) with some protein. Administer FULL DOSE of insulin glargine (LANTUS) after snack. Record snack in I&O's. For blood glucose more than 400 mg/dL: notify provider
[facility] Medication administered onsite furosemide (LASIX) injection 20 mg [id number] 03/06/2020 10:00:00 PM EST 20 mg Intravenous completed 20 mg, I ntravenous, Once, 03/06/20 at 2200, For 1 dose
Notify provider if systolic blood pressure less than: 100 [facility] Medication administered onsite ondansetron (ZOFRAN) injection 4 mg [id number] 03/06/2020 09:57:5 5 PM EST 4 mg Intravenous active 4 mg, In travenous, Every 8 hours PRN, Nausea, Vomiting, Starting 03/06/20 at 2157, For 30 days [facility] Medication administered onsite Oxycodone Hydrochloride 5 MG Oral Tablet oxyCODONE (ROXICODONE) immediate release tablet 5 mg oxyCODONE (ROXICODONE) immediate release tablet 5 mg 03/06/2020 09:56:43 PM EST 5 mg Oral active 5 mg, Oral, Every 4 hours PRN, Moderate Pain (Pain Scale Score 4-6), moderate/severe pain, Starting 1/2/21 at 2156, For 5 days 22 hours
Every 4-6 hours PRN
Oxycodone immediate release is limited to 10 mg per dose. Higher doses ( only) require Pain Service consultation and approval.
[facility] Medication administered onsite Glucagon 1 MG Injection glucagon (human recombinant) ( GLUCAGEN) injection 1 mg glucagon (human recombinant) (GLUCAGEN) injection 1 mg 03/06/2020 09:52:55 PM EST 1 mg Intramuscular active 1 mg, Intramuscular, PRN, for glucose <55 without IV access, Starting 03/06/20 at 2152, For 30 days [facility] Medication administered onsite dextrose 50 % IV solution 25 mL [id number] 03/06/2020 09:52:[address] 25 mL Intravenous active 25 mL, Intrav enous, PRN, Other, blood glucose <55, Starting 03/06/20 at 2152, For 30 days
Not for midline administration.
[facility] Medication administered onsite Glucose 0.417 MG/MG Oral Gel glucose (GLUTOSE) 40 % or al gel 15 g glucose (GLUTOSE) 40 % oral gel 15 g 03/06/2020 09:52:55 PM EST 15 g Oral active 15 g, Oral, PRN, Low blood s ugar, for gluose 55-69 mg/dl and able to take PO, Starting 03/06/20 at 2152, For 30 days [facility] Medication administered onsite Acetaminophen 325 MG [...] mg from all sources in 24 hours.
[facility] Medication administered onsite 3 ML Insulin Glargine 100 UNT/ML Pen Inj cam Insulin Glargine 100 UNIT/ML Subcutaneous Solution Pen-injector (LANTUS SOLOSTAR) Insulin Glargine 100 UNIT/ML Subcutaneous Solution Pen-injector (LANTUS SOLOSTAR) 40 U Subcutaneous aborted Inject 40 Units i nto the skin nightly [facility] 3 ML Insulin, Aspart, Human 100 UNT/ML P en Injector Insulin Aspart 100 UNIT/ML Subcutaneous Solution Pen-injector (NOVOLOG FLEXPEN) Insulin Aspart 100 UNIT/ML Subcutaneous Solution Pen-injector (NOVOLOG FLEXPEN) Subcutaneous aborted Inject into the skin Three times daily before meals Per sliding scale [facility] Insurance Providers Payer name Policy type / Coverage type Policy ID Covered green party ID Covered green party's relationship to coffey Policy Coffey Plan Information OTHER B [id number] Self [id number] [facility] [employer] [place] Plan/ [id number] Self [id number] OTHER B [id number] Self [id number] OTHER B [id number] Self [id number] [place]/136E O [id number] S [id number] [employer] [place] O [id number] S [id number] VA [facility] OPTUM [id number] SP [id number] WPS MV-VAPCCC [facility] [id number] SP [id number] HOMOSASSA O [id number] S [id number] COMMERCIAL GENERIC [id number] [place] [id number] COMMERCIAL GENERIC [id number] [id number] OPTUM [facility] [id number] SP [id number] 'S ADMINISTRATION [id number] SP [id number] OTHER B Self OTHER B [id number] Self [id number] 'S ADMINISTRATION [id number] SP [id number] Problems, Conditions, and Diagnoses Code Display Name Description Problem Type Effective Dates Data Source(s) I63.9 Cerebral infarction, unspecified Cerebral infarc tion, unspecified Diagnosis 09/11/2020 05:05:41 PM EDT [facility] hepatic encephalopaty, rhabdo, AMS hepatic encep halopaty, rhabdo, AMS Diagnosis 03/06/2020 07:53:00 PM EST [facility] Z79.4 intermodal customer service (current) use of insulin intermodal customer service (cu rrent) use of insulin Problem 07/14/2020 01:00:00 AM EDT [facility] I50.9 Heart failure, unspecified Heart failure, unspecified Problem 07/14/2020 01:00:00 AM EDT [facility] ([facility] ) I48.0 Paroxysmal atrial fibrillation Paroxysmal atrial fibri llation Problem 07/14/2020 01:00:00 AM EDT [facility] ([facility] ) K74.60 Unspecified cirrhosis of liver Unspecified cirrhosis o f liver Problem 07/14/2020 01:00:00 AM EDT [facility] ([facility] ) I25.10 Atherosclerotic heart diseas e of [place] coronary artery without angina pectoris Atherosclerotic heart disease of [place] coronary artery without angina pectoris Problem 07/14/2020 01:00:00 AM EDT [facility] ([facility]) J44.1 Chronic obstructive pulmonary disease wi th (acute) exacerbation Chronic obstructive pulmonary disease with (acute) exacerbation Problem 07/14/2020 01:00:00 AM EDT [facility] ([facility] ) Z79.01 residential (current) use of anticoagulant s intermodal customer service (current) use of anticoagulants Problem 07/14/2020 01:00:00 AM EDT [facility] ([facility]) E11.9 Type 2 diabetes mellitus without complic ations Type 2 diabetes mellitus without complications Problem 07/14/2020 01:00:00 AM EDT [facility] ([facility]) Surgeries/Procedures Procedure Description Date Indications Data Source(s) POCT GLUCOSE, DOCKED <td>POCT GLUCOSE, DOCKED</td ><td>Routine</td><td>09/20/2020 11:29 AM EDT</td><td></td><td> </td> 09/20/2020 11:29:00 AM [facility] POCT GLUCOSE, DOCKED <td>POCT GLUCOSE, DOCKED</td ><td>Routine</td><td>09/20/2020 7:44 AM EDT</td><td></td><td> </td> 09/20/2020 07:44:00 AM [facility] BASIC METABOLIC PANEL CALCIUM TOTAL <td>BASIC METABOLI C PANEL</td><td>Routine</td><td>09/20/2020 3:01 AM EDT</td><td></td><td> </td> 09/20/2020 03:01:00 AM [facility] GLUCOSE QUANTITATIVE BLOOD XCPT REAGENT STRIP <td>POCT GLUCOSE, DOCKED</td><td>Routine</td><td>09/19/2020 10:15 PM EDT</td><td></td><td> </td> 09/19/2020 10:15:00 PM [facility] GLUCOSE QUANTITATIVE BLOOD XCPT REAGENT STRIP <td>POCT GLUCOSE, DOCKED</td><td>Routine</td><td>09/19/2020 4:06 PM EDT</td><td></td><td> </td> 09/19/2020 04:06:00 PM [facility] GLUCOSE QUANTITATIVE BLOOD XCPT REAGENT STRIP <td>POCT GLUCOSE, DOCKED</td><td>Routine</td><td>09/19/2020 11:40 AM EDT</td><td></td><td> </td> 09/19/2020 11:40:00 AM [facility] GLUCOSE QUANTITATIVE BLOOD XCPT REAGENT STRIP <td>POCT GLUCOSE, DOCKED</td><td>Routine</td><td>09/19/2020 8:00 AM EDT</td><td></td><td> </td> 09/19/2020 08:00:00 AM [facility] GLUCOSE QUANTITATIVE BLOOD XCPT REAGENT STRIP <td>POCT GLUCOSE, DOCKED</td><td>Routine</td><td>09/18/2020 4:46 PM EDT</td><td></td><td> </td> 09/18/2020 04:46:00 PM [facility] GLUCOSE QUANTITATIVE BLOOD XCPT REAGENT STRIP <td>POCT GLUCOSE, DOCKED</td><td>Routine</td><td>09/18/2020 12:10 PM EDT</td><td></td><td> </td> 09/18/2020 12:10:00 PM [facility] BLOOD COUNT COMPLETE AUTOMATED <td>CBC</td><td>Routine </td><td>09/18/2020 10:01 AM EDT</td><td></td><td> </td> 09/18/2020 10:01:00 AM [facility] BASIC METABOLIC PANEL CALCIUM TOTAL <td>BASIC METABOLI C PANEL</td><td>Routine</td><td>09/18/2020 10:01 AM EDT</td><td></td><td> </td> 09/18/2020 10:01:00 AM [facility] GLUCOSE QUANTITATIVE BLOOD XCPT REAGENT STRIP <td>POCT GLUCOSE, DOCKED</td><td>Routine</td><td>09/18/2020 7:45 AM EDT</td><td></td><td> </td> 09/18/2020 07:45:00 AM [facility] GLUCOSE QUANTITATIVE BLOOD XCPT REAGENT STRIP <td>POCT GLUCOSE, DOCKED</td><td>Routine</td><td>09/17/2020 5:01 PM EDT</td><td></td><td> </td> 09/17/2020 05:01:00 PM [facility] GLUCOSE QUANTITATIVE BLOOD XCPT REAGENT STRIP <td>POCT GLUCOSE, DOCKED</td><td>Routine</td><td>09/17/2020 12:03 PM EDT</td><td></td><td> </td> 09/17/2020 12:03:00 PM [facility] GLUCOSE QUANTITATIVE BLOOD XCPT REAGENT STRIP <td>POCT GLUCOSE, DOCKED</td><td>Routine</td><td>09/17/2020 7:56 AM EDT</td><td></td><td> </td> 09/17/2020 07:56:00 AM [facility] BLOOD COUNT COMPLETE AUTOMATED <td>CBC</td><td>Routine </td><td>09/17/2020 4:12 AM EDT</td><td></td><td> </td> 09/17/2020 04:12:00 AM [facility] LACTATE <td>LACTIC ACID LEVEL, PLASM A</td><td>Routine</td><td>09/17/2020 4:12 AM EDT</td><td></td><td> </td> 09/17/2020 04:12:00 AM [facility] AMMONIA <td>AMMONIA LEVEL</td><td>Ro utine</td><td>09/17/2020 4:12 AM EDT</td><td></td><td> </td> 09/17/2020 04:12:00 AM [facility] COMPREHENSIVE METABOLIC PANEL <td>COMPREHENSIVE METABO LIC PANEL</td><td>Routine</td><td>09/17/2020 4:12 AM EDT</td><td></td><td> </td> 09/17/2020 04:12:00 AM [facility] GLUCOSE QUANTITATIVE BLOOD XCPT REAGENT STRIP <td>POCT GLUCOSE, DOCKED</td><td>Routine</td><td>09/16/2020 9:40 PM EDT</td><td></td><td> </td> 09/16/2020 09:40:00 PM [facility] GLUCOSE QUANTITATIVE BLOOD XCPT REAGENT STRIP <td>POCT GLUCOSE, DOCKED</td><td>Routine</td><td>09/16/2020 5:04 PM EDT</td><td></td><td> </td> 09/16/2020 05:04:00 PM [facility] GLUCOSE QUANTITATIVE BLOOD XCPT REAGENT STRIP <td>POCT GLUCOSE, DOCKED</td><td>Routine</td><td>09/16/2020 11:31 AM EDT</td><td></td><td> </td> 09/16/2020 11:31:00 AM [facility] GLUCOSE QUANTITATIVE BLOOD XCPT REAGENT STRIP <td>POCT GLUCOSE, DOCKED</td><td>Routine</td><td>09/16/2020 8:04 AM EDT</td><td></td><td> </td> 09/16/2020 08:04:00 AM [facility] BLOOD COUNT COMPLETE AUTO&AUTO DIFRNTL WBC COUNT <td>C BC AND DIFFERENTIAL</td><td>Routine</td><td>09/16/2020 4:54 AM EDT</td><td></td><td> </td> 09/16/2020 04:54:00 AM [facility] BASIC METABOLIC PANEL CALCIUM TOTAL <td>BASIC METABOLI C PANEL</td><td>Routine</td><td>09/16/2020 4:54 AM EDT</td><td></td><td> </td> 09/16/2020 04:54:00 AM [facility] GLUCOSE QUANTITATIVE BLOOD XCPT REAGENT STRIP <td>POCT GLUCOSE, DOCKED</td><td>Routine</td><td>09/15/2020 4:24 PM EDT</td><td></td><td> </td> 09/15/2020 04:24:00 PM [facility] EKG 12-LEAD - CMAXX REPORT <td>EKG 12-LEAD - CMAXX REPORT</td><td></td><td>09/15/2020 12:40 PM EDT</td><td></td><td></td> 09/15/2020 12:40:03 PM [facility] EKG 12-LEAD - CMAXX REPORT <td>EKG 12-LEAD - CMAXX REPORT</td><td></td><td>09/15/2020 12:40 PM EDT</td><td></td><td></td> 09/15/2020 12:40:03 PM [facility] EKG 12-LEAD <td>EKG 12-LEAD</td><td>Rout ine</td><td>09/15/2020 12:40 PM EDT</td><td></td><td> </td> 09/15/2020 12:40:03 PM [facility] PROCALCITONIN (PCT) <td>PROCALCITONIN</td><td>Ro utine</td><td>09/15/2020 11:11 AM EDT</td><td></td><td> </td> 09/15/2020 11:11:00 AM [facility] LACTATE <td>LACTIC ACID LEVEL, PLASM A</td><td>Timed</td><td>09/15/2020 11:11 AM EDT</td><td></td><td> </td> 09/15/2020 11:11:00 AM [facility] GLUCOSE QUANTITATIVE BLOOD XCPT REAGENT STRIP <td>POCT GLUCOSE, DOCKED</td><td>Routine</td><td>09/15/2020 10:47 AM EDT</td><td></td><td> </td> 09/15/2020 10:47:00 AM [facility] LACTATE <td>LACTIC ACID LEVEL, PLASM A</td><td>Timed</td><td>09/15/2020 9:11 AM EDT</td><td></td><td> </td> 09/15/2020 09:11:00 AM [facility] GLUCOSE QUANTITATIVE BLOOD XCPT REAGENT STRIP <td>POCT GLUCOSE, DOCKED</td><td>Routine</td><td>09/15/2020 7:15 AM EDT</td><td></td><td> </td> 09/15/2020 07:15:00 AM [facility] BLOOD COUNT COMPLETE AUTO&AUTO DIFRNTL WBC COUNT <td>C BC AND DIFFERENTIAL</td><td>Routine</td><td>09/15/2020 4:21 AM EDT</td><td></td><td> </td> 09/15/2020 04:21:00 AM [facility] LACTATE <td>LACTIC ACID LEVEL, PLASM A</td><td>Timed</td><td>09/15/2020 4:21 AM EDT</td><td></td><td> </td> 09/15/2020 04:21:00 AM [facility] BASIC METABOLIC PANEL CALCIUM TOTAL <td>BASIC METABOLI C PANEL</td><td>Routine</td><td>09/15/2020 4:21 AM EDT</td><td></td><td> </td> 09/15/2020 04:21:00 AM [facility] LACTATE <td>LACTIC ACID LEVEL, PLASM A</td><td>Timed</td><td>09/14/2020 9:14 PM EDT</td><td></td><td> </td> 09/14/2020 09:14:00 PM [facility] GLUCOSE QUANTITATIVE BLOOD XCPT REAGENT STRIP <td>POCT GLUCOSE, DOCKED</td><td>Routine</td><td>09/14/2020 9:12 PM EDT</td><td></td><td> </td> 09/14/2020 09:12:00 PM [facility] GLUCOSE QUANTITATIVE BLOOD XCPT REAGENT STRIP <td>POCT GLUCOSE, DOCKED</td><td>Routine</td><td>09/14/2020 4:58 PM EDT</td><td></td><td> </td> 09/14/2020 04:58:00 PM [facility] LACTATE <td>LACTIC ACID LEVEL, PLASM A</td><td>Timed</td><td>09/14/2020 3:56 PM EDT</td><td></td><td> </td> 09/14/2020 03:56:00 PM [facility] CREATINE KINASE TOTAL <td>CK</td><td>Routine</td>< td>09/14/2020 3:56 PM EDT</td><td></td><td> </td> 09/14/2020 03:56:00 PM [facility] XR CHEST FRONTAL ONLY [id number] <td>XR CHEST FRONTAL ONLY [id number]</td><td>Routine</td><td>09/14/2020 2:17 PM EDT</td><td></td><td> </td> 09/14/2020 02:17:00 PM [facility] GLUCOSE QUANTITATIVE BLOOD XCPT REAGENT STRIP <td>POCT GLUCOSE, DOCKED</td><td>Routine</td><td>09/14/2020 12:41 PM EDT</td><td></td><td> </td> 09/14/2020 12:41:00 PM [facility] LACTATE <td>LACTIC ACID LEVEL, PLASM A</td><td>Timed</td><td>09/14/2020 12:25 PM EDT</td><td></td><td> </td> 09/14/2020 12:25:00 PM [facility] GLUCOSE QUANTITATIVE BLOOD XCPT REAGENT STRIP <td>POCT GLUCOSE, DOCKED</td><td>Routine</td><td>09/14/2020 11:41 AM EDT</td><td></td><td> </td> 09/14/2020 11:41:00 AM [facility] GLUCOSE QUANTITATIVE BLOOD XCPT REAGENT STRIP <td>POCT GLUCOSE, DOCKED</td><td>Routine</td><td>09/14/2020 11:24 AM EDT</td><td></td><td> </td> 09/14/2020 11:24:00 AM [facility] GLUCOSE QUANTITATIVE BLOOD XCPT REAGENT STRIP <td>POCT GLUCOSE, DOCKED</td><td>Routine</td><td>09/14/2020 11:00 AM EDT</td><td></td><td> </td> 09/14/2020 11:00:00 AM [facility] GLUCOSE QUANTITATIVE BLOOD XCPT REAGENT STRIP <td>POCT GLUCOSE, DOCKED</td><td>Routine</td><td>09/14/2020 10:56 AM EDT</td><td></td><td> </td> 09/14/2020 10:56:00 AM [facility] LACTATE <td>LACTIC ACID LEVEL, PLASM A</td><td>Timed</td><td>09/14/2020 7:54 AM EDT</td><td></td><td> </td> 09/14/2020 07:54:00 AM [facility] GLUCOSE QUANTITATIVE BLOOD XCPT REAGENT STRIP <td>POCT GLUCOSE, DOCKED</td><td>Routine</td><td>09/14/2020 7:26 AM EDT</td><td></td><td> </td> 09/14/2020 07:26:00 AM [facility] BLOOD COUNT COMPLETE AUTO&AUTO DIFRNTL WBC COUNT <td>C BC AND DIFFERENTIAL</td><td>Routine</td><td>09/14/2020 4:42 AM EDT</td><td></td><td> </td> 09/14/2020 04:42:00 AM [facility] LACTATE <td>LACTIC ACID LEVEL, PLASM A</td><td>Timed</td><td>09/14/2020 4:42 AM EDT</td><td></td><td> </td> 09/14/2020 04:42:00 AM [facility] AMMONIA <td>AMMONIA LEVEL</td><td>Ro utine</td><td>09/14/2020 4:42 AM EDT</td><td></td><td> </td> 09/14/2020 04:42:00 AM [facility] BASIC METABOLIC PANEL CALCIUM TOTAL <td>BASIC METABOLI C PANEL</td><td>Routine</td><td>09/14/2020 4:42 AM EDT</td><td></td><td> </td> 09/14/2020 04:42:00 AM [facility] URNLS DIP STICK/TABLET REAGENT AUTO MICROSCOPY <td>URI NALYSIS WITH MICROSCOPIC</td><td>Routine</td><td>09/14/2020 12:33 AM EDT</td><td></td><td> </td> 09/14/2020 12:33:00 AM [facility] LACTATE <td>LACTIC ACID LEVEL, PLASM A</td><td>Timed</td><td>09/14/2020 12:27 AM EDT</td><td></td><td> </td> 09/14/2020 12:27:00 AM [facility] GLUCOSE QUANTITATIVE BLOOD XCPT REAGENT STRIP <td>POCT GLUCOSE, DOCKED</td><td>Routine</td><td>09/13/2020 10:50 PM EDT</td><td></td><td> </td> 09/13/2020 10:50:00 PM [facility] ACETONE/OTHER KETONE BODIES SERUM QUANTITATIVE <td>BETAHYDROXYBUTYRATE</td><td>Routine</td><td>09/13/2020 9:58 PM EDT</td><td></td><td> </td> 09/13/2020 09:58:00 PM [facility] BASIC METABOLIC PANEL CALCIUM TOTAL <td>BASIC METABOLI C PANEL</td><td>Routine</td><td>09/13/2020 9:58 PM EDT</td><td></td><td> </td> 09/13/2020 09:58:00 PM [facility] GLUCOSE QUANTITATIVE BLOOD XCPT REAGENT STRIP <td>POCT GLUCOSE, DOCKED</td><td>Routine</td><td>09/13/2020 8:53 PM EDT</td><td></td><td> </td> 09/13/2020 08:53:00 PM [facility] LACTATE <td>LACTIC ACID LEVEL, PLASM A</td><td>Timed</td><td>09/13/2020 8:23 PM EDT</td><td></td><td> </td> 09/13/2020 08:23:00 PM [facility] LACTATE DEHYDROGENASE LDH <td>LACTATE DEHYDROGENASE</td><td>Routine</td><td>09/13/2020 6:39 PM EDT</td><td></td><td> </td> 09/13/2020 06:39:00 PM [facility] CULTURE BACTERIAL BLOOD AEROBIC W/ID ISOLATES <td>BLOO D CULTURE</td><td>Routine</td><td>09/13/2020 6:35 PM EDT</td><td></td><td> </td> 09/13/2020 06:35:00 PM [facility] CULTURE BACTERIAL BLOOD AEROBIC W/ID ISOLATES <td>BLOO D CULTURE</td><td>Routine</td><td>09/13/2020 6:35 PM EDT</td><td></td><td> </td> 09/13/2020 06:35:00 PM [facility] BLOOD GASES ANY COMBINATION PH PCO2 PO2 CO2 HCO3 <td>B LOOD GAS, VENOUS</td><td>Routine</td><td>09/13/2020 4:30 PM EDT</td><td></td><td> </td> 09/13/2020 04:30:00 PM [facility] GLUCOSE QUANTITATIVE BLOOD XCPT REAGENT STRIP <td>POCT GLUCOSE, DOCKED</td><td>Routine</td><td>09/13/2020 4:29 PM EDT</td><td></td><td> </td> 09/13/2020 04:29:00 PM [facility] LACTATE <td>LACTIC ACID LEVEL, PLASM A</td><td>Routine</td><td>09/13/2020 3:18 PM EDT</td><td></td><td> </td> 09/13/2020 03:18:00 PM [facility] SODIUM URINE <td>SODIUM, URINE, RANDOM</t d><td>Routine</td><td>09/13/2020 2:26 PM EDT</td><td></td><td> </td> 09/13/2020 02:26:00 PM [facility] CREATININE OTHER SOURCE <td>CREATININE, URINE, RANDOM</td><td>Routine</td><td>09/13/2020 2:26 PM EDT</td><td></td><td> </td> 09/13/2020 02:26:00 PM [facility] ECHO TTHRC R-T 2D W/WOM-MODE COMPL SPEC&COLR DOP <td>E CHOCARDIOGRAM 2D COMPLETE</td><td>Routine</td><td>09/13/2020 2:00 PM EDT</td><td></td><td> </td> 09/13/2020 02:00:45 PM [facility] ACETONE/OTHER KETONE BODIES SERUM QUANTITATIVE <td>BETAHYDROXYBUTYRATE</td><td>STAT</td><td>09/13/2020 1:51 PM EDT</td><td></td><td> </td> 09/13/2020 01:51:00 PM [facility] COMPREHENSIVE METABOLIC PANEL <td>COMPREHENSIVE METABO LIC PANEL</td><td>STAT</td><td>09/13/2020 1:51 PM EDT</td><td></td><td> </td> 09/13/2020 01:51:00 PM [facility] GLUCOSE QUANTITATIVE BLOOD XCPT REAGENT STRIP <td>POCT GLUCOSE, DOCKED</td><td>Routine</td><td>09/13/2020 1:47 PM EDT</td><td></td><td> </td> 09/13/2020 01:47:00 PM [facility] DUP-SCAN ARTL PAKO ABDL/PEL/SCROT&/RPR ORGN LMTD <td>US DOPPLER ABDOMEN PELVIS ORGANS LIMITED [id number]</td><td>Routine</td><td>09/13/2020 1:37 PM EDT</td><td></td><td> </td> 09/13/2020 01:37:14 PM [facility] GLUCOSE QUANTITATIVE BLOOD XCPT REAGENT STRIP <td>POCT GLUCOSE, DOCKED</td><td>Routine</td><td>09/13/2020 11:00 AM EDT</td><td></td><td> </td> 09/13/2020 11:00:00 AM [facility] BLOOD COUNT COMPLETE AUTO&AUTO DIFRNTL WBC COUNT <td>C BC AND DIFFERENTIAL</td><td>Routine</td><td>09/13/2020 10:59 AM EDT</td><td></td><td> </td> 09/13/2020 10:59:00 AM [facility] BASIC METABOLIC PANEL CALCIUM TOTAL <td>BASIC METABOLI C PANEL</td><td>STAT</td><td>09/13/2020 8:02 AM EDT</td><td></td><td> </td> 09/13/2020 08:02:00 AM [facility] GLUCOSE QUANTITATIVE BLOOD XCPT REAGENT STRIP <td>POCT GLUCOSE, DOCKED</td><td>Routine</td><td>09/13/2020 7:34 AM EDT</td><td></td><td> </td> 09/13/2020 07:34:00 AM [facility] GLUCOSE QUANTITATIVE BLOOD XCPT REAGENT STRIP <td>POCT GLUCOSE, DOCKED</td><td>Routine</td><td>09/13/2020 4:57 AM EDT</td><td></td><td> </td> 09/13/2020 04:57:00 AM [facility] AMMONIA <td>AMMONIA LEVEL</td><td>Ro utine</td><td>09/13/2020 4:57 AM EDT</td><td></td><td> </td> 09/13/2020 04:57:00 AM [facility] BASIC METABOLIC PANEL CALCIUM TOTAL <td>BASIC METABOLI C PANEL</td><td>Routine</td><td>09/13/2020 4:57 AM EDT</td><td></td><td> </td> 09/13/2020 04:57:00 AM [facility] MRI BRAIN BRAIN STEM W/O CONTRAST MATERIAL <td>MR BRAI N WITHOUT CONTRAST [id number]</td><td>Routine</td><td>09/12/2020 6:15 PM EDT</td><td></td><td> </td> 09/12/2020 06:15:00 PM [facility] CT HEAD/BRAIN W/O CONTRAST MATERIAL <td>CT HEAD WITHOU T CONTRAST [id number]</td><td>Routine</td><td>09/12/2020 5:59 PM EDT</td><td></td><td> </td> 09/12/2020 05:59:06 PM [facility] [facility] QUANTITATIVE BLOOD XCPT REAGENT STRIP <td>POCT GLUCOSE, DOCKED</td><td>Routine</td><td>09/12/2020 4:18 PM EDT</td><td></td><td> </td> 09/12/2020 04:18:00 PM [facility] GLUCOSE QUANTITATIVE BLOOD XCPT REAGENT STRIP <td>POCT GLUCOSE, DOCKED</td><td>Routine</td><td>09/12/2020 3:44 PM EDT</td><td></td><td> </td> 09/12/2020 03:44:00 PM [facility] AMMONIA <td>AMMONIA LEVEL</td><td>Ro utine</td><td>09/12/2020 11:02 AM EDT</td><td></td><td> </td> 09/12/2020 11:02:00 AM [facility] BLOOD COUNT COMPLETE AUTO&AUTO DIFRNTL WBC COUNT <td>C BC AND DIFFERENTIAL</td><td>Routine</td><td>09/12/2020 5:57 AM EDT</td><td></td><td> </td> 09/12/2020 05:57:00 AM [facility] BASIC METABOLIC PANEL CALCIUM TOTAL <td>BASIC METABOLI C PANEL</td><td>Routine</td><td>09/12/2020 5:57 AM EDT</td><td></td><td> </td> 09/12/2020 05:57:00 AM [facility] CT HEAD/BRAIN W/O CONTRAST MATERIAL <td>CT HEAD WITHOU T CONTRAST 39614</td><td>Routine</td><td>09/12/2020 1:41 AM EDT</td><td></td><td> </td> 09/12/2020 01:41:04 AM [facility] SODIUM URINE <td>SODIUM, URINE, RANDOM</t d><td>Routine</td><td>09/12/2020 1:01 AM EDT</td><td></td><td> </td> 09/12/2020 01:01:00 AM [facility] OSMOLALITY URINE <td>OSMOLALITY, URINE</td><t d>Routine</td><td>09/12/2020 1:01 AM EDT</td><td></td><td> </td> 09/12/2020 01:01:00 AM [facility] RESPIRATORY PATHOGEN PANEL <td>RESPIRATORY PATHOGEN PANEL</td><td>Routine</td><td>09/11/2020 6:44 PM EDT</td><td></td><td> </td> 09/11/2020 06:44:00 PM [facility] COVID-19 PCR <td>COVID-19 PCR</td><td>Rou irina</td><td>09/11/2020 6:44 PM EDT</td><td></td><td> </td> 09/11/2020 06:44:00 PM [facility] AMMONIA <td>AMMONIA LEVEL</td><td>ST AT</td><td>09/11/2020 6:44 PM EDT</td><td></td><td> </td> 09/11/2020 06:44:00 PM [facility] POCT ID NOW COVID-19 <td>POCT ID NOW COVID-19</td ><td>Routine</td><td>09/11/2020 6:32 PM EDT</td><td></td><td> </td> 09/11/2020 06:32:00 PM [facility] CT ANGIOGRAPHY NECK W/CONTRAST/NONCONTRAST <td>CT MARIBEL OGRAPHY NECK 02521</td><td>CODE</td><td>09/11/2020 5:57 PM EDT</td><td></td><td> </td> 09/11/2020 05:57:52 PM [facility] CT ANGIOGRAPHY HEAD W/CONTRAST/NONCONTRAST <td>CT MARIBEL OGRAPHY HEAD [id number]</td><td>CODE</td><td>09/11/2020 5:57 PM EDT</td><td></td><td> </td> 09/11/2020 05:57:52 PM [facility] CT ANGIOGRAPHY CHEST W/CONTRAST/NONCONTRAST <td>CT ANG IOGRAPHY THORAX 16005</td><td>CODE</td><td>09/11/2020 5:57 PM EDT</td><td></td><td> </td> 09/11/2020 05:57:12 PM [facility] CT ABDOEN & PELVIS W/CONTRAST MATERIAL <td>CT ABDOMEN PELVIS WITH CONTRAST 60243</td><td>CODE</td><td>09/11/2020 5:57 PM EDT</td><td></td><td> </td> 09/11/2020 05:57:12 PM [facility] CEREBRAL PERFUSION ANALYS CT W/BLOOD FLOW&VOLUME <td>C T CEREBRAL PERFUSION WITH CONTRAST 0042T</td><td>CODE</td><td>09/11/2020 5:56 PM EDT</td><td></td><td> </td> 09/11/2020 05:56:32 PM [facility] TROPONIN QUANTITATIVE <td>POCT ISTAT TROPONIN</td> <td>Routine</td><td>09/11/2020 5:54 PM EDT</td><td></td><td> </td> 09/11/2020 05:54:00 PM [facility] BASIC METABOLIC PANEL CALCIUM IONIZED <td>POCT ISTAT CHEM8</td><td>Routine</td><td>09/11/2020 5:52 PM EDT</td><td></td><td> </td> 09/11/2020 05:52:00 PM [facility] EKG ED PHYSICIAN INTERPRETATION <td>EKG ED PHYSICIAN INTERPRETATION</td><td>Routine</td><td>09/11/2020 5:50 PM EDT</td><td></td><td> </td> 09/11/2020 05:50:09 PM [facility] DRUGS OF ABUSE, URINE <td>DRUGS OF ABUSE, URINE</t d><td>STAT</td><td>09/11/2020 5:44 PM EDT</td><td></td><td> </td> 09/11/2020 05:44:00 PM [facility] URNLS DIP STICK/TABLET REAGENT AUTO MICROSCOPY <td>URI NALYSIS WITH MICROSCOPIC</td><td>STAT</td><td>09/11/2020 5:44 PM EDT</td><td></td><td> </td> 09/11/2020 05:44:00 PM [facility] BLOOD GASES ANY COMBINATION PH PCO2 PO2 CO2 HCO3 <td>P OCT ISTAT VBG/LAC</td><td>Routine</td><td>09/11/2020 5:39 PM EDT</td><td></td><td> </td> 09/11/2020 05:39:00 PM [facility] TROPONIN T HIGH SENSITIVITY <td>TROPONIN T HIGH SENSITIVITY</td><td>STAT</td><td>09/11/2020 5:37 PM EDT</td><td></td><td> </td> 09/11/2020 05:37:00 PM [facility] THROMBOPLASTIN TIME PARTIAL PLASMA/WHOLE BLOOD <td>PAR TIAL THROMBOPLASTIN TIME (PTT)</td><td>STAT</td><td>09/11/2020 5:37 PM EDT</td><td></td><td> </td> 09/11/2020 05:37:00 PM [facility] PROTHROMBIN TIME <td>PROTIME INR</td><td>STAT </td><td>09/11/2020 5:37 PM EDT</td><td></td><td> </td> 09/11/2020 05:37:00 PM [facility] BLOOD COUNT COMPLETE AUTO&AUTO DIFRNTL WBC COUNT <td>C BC AND DIFFERENTIAL</td><td>Routine</td><td>09/11/2020 5:37 PM EDT</td><td></td><td> </td> 09/11/2020 05:37:00 PM [facility] BLOOD TYPING ABO <td>TYPE AND SCREEN</td><td> STAT</td><td>09/11/2020 5:37 PM EDT</td><td></td><td> </td> 09/11/2020 05:37:00 PM [facility] THYROID STIMULATING HORMONE TSH <td>TSH</td><td>Routin e</td><td>09/11/2020 5:37 PM EDT</td><td></td><td> </td> 09/11/2020 05:37:00 PM [facility] HEMOGLOBIN GLYCOSYLATED A1C <td>HEMOGLOBIN A1C</td><td>Routine</td><td>09/11/2020 5:37 PM EDT</td><td></td><td> </td> 09/11/2020 05:37:00 PM [facility] CREATINE KINASE TOTAL <td>CK</td><td>STAT</td><td> 09/11/2020 5:37 PM EDT</td><td></td><td> </td> 09/11/2020 05:37:00 PM [facility] HEPATIC FUNCTION PANEL <td>HEPATIC FUNCTION PANEL A</td><td>Routine</td><td>09/11/2020 5:37 PM EDT</td><td></td><td> </td> 09/11/2020 05:37:00 PM [facility] LIPID PANEL <td>LIPID PANEL</td><td>Rout ine</td><td>09/11/2020 5:37 PM EDT</td><td></td><td> </td> 09/11/2020 05:37:00 PM [facility] BASIC METABOLIC PANEL CALCIUM TOTAL <td>BASIC METABOLI C PANEL</td><td>STAT</td><td>09/11/2020 5:37 PM EDT</td><td></td><td> </td> 09/11/2020 05:37:00 PM [facility] EKG 12-LEAD - CMAXX REPORT <td>EKG 12-LEAD - CMAXX REPORT</td><td></td><td>09/11/2020 5:33 PM EDT</td><td></td><td></td> 09/11/2020 05:33:19 PM [facility] EKG 12-LEAD - CMAXX REPORT <td>EKG 12-LEAD - CMAXX REPORT</td><td></td><td>09/11/2020 5:33 PM EDT</td><td></td><td></td> 09/11/2020 05:33:19 PM [facility] EKG 12-LEAD <td>EKG 12-LEAD</td><td>STAT </td><td>09/11/2020 5:33 PM EDT</td><td></td><td> </td> 09/11/2020 05:33:19 PM [facility] POCT GLUCOSE, DOCKED <td>POCT GLUCOSE, DOCKED</td ><td>Routine</td><td>03/10/2020 11:38 AM EST</td><td></td><td> </td> 03/10/2020 11:38:00 AM [facility] POCT GLUCOSE, DOCKED <td>POCT GLUCOSE, DOCKED</td ><td>Routine</td><td>03/10/2020 7:50 AM EST</td><td></td><td> </td> 03/10/2020 07:50:00 AM [facility] PROTHROMBIN TIME <td>PROTIME INR</td><td>Rout ine</td><td>03/10/2020 3:08 AM EST</td><td></td><td> </td> 03/10/2020 03:08:00 AM [facility] CREATINE KINASE TOTAL <td>CK</td><td>Routine</td>< td>03/10/2020 3:08 AM EST</td><td></td><td> </td> 03/10/2020 03:08:00 AM [facility] BILIRUBIN DIRECT <td>BILIRUBIN, DIRECT</td><t d>Routine</td><td>03/10/2020 3:08 AM EST</td><td></td><td> </td> 03/10/2020 03:08:00 AM [facility] COMPREHENSIVE METABOLIC PANEL <td>COMPREHENSIVE METABO LIC PANEL</td><td>Routine</td><td>03/10/2020 3:08 AM EST</td><td></td><td> </td> 03/10/2020 03:08:00 AM [facility] GLUCOSE QUANTITATIVE BLOOD XCPT REAGENT STRIP <td>POCT GLUCOSE, DOCKED</td><td>Routine</td><td>03/09/2020 9:12 PM EST</td><td></td><td> </td> 03/09/2020 09:12:00 PM [facility] GLUCOSE QUANTITATIVE BLOOD XCPT REAGENT STRIP <td>POCT GLUCOSE, DOCKED</td><td>Routine</td><td>03/09/2020 5:58 PM EST</td><td></td><td> </td> 03/09/2020 05:58:00 PM [facility] GLUCOSE QUANTITATIVE BLOOD XCPT REAGENT STRIP <td>POCT GLUCOSE, DOCKED</td><td>Routine</td><td>03/09/2020 5:02 PM EST</td><td></td><td> </td> 03/09/2020 05:02:00 PM [facility] GLUCOSE QUANTITATIVE BLOOD XCPT REAGENT STRIP <td>POCT GLUCOSE, DOCKED</td><td>Routine</td><td>03/09/2020 1:00 PM EST</td><td></td><td> </td> 03/09/2020 01:00:00 PM [facility] GLUCOSE QUANTITATIVE BLOOD XCPT REAGENT STRIP <td>POCT GLUCOSE, DOCKED</td><td>Routine</td><td>03/09/2020 11:36 AM EST</td><td></td><td> </td> 03/09/2020 11:36:00 AM [facility] GLUCOSE QUANTITATIVE BLOOD XCPT REAGENT STRIP <td>POCT GLUCOSE, DOCKED</td><td>Routine</td><td>03/09/2020 7:49 AM EST</td><td></td><td> </td> 03/09/2020 07:49:00 AM [facility] PROTHROMBIN TIME <td>PROTIME INR</td><td>Rout ine</td><td>03/09/2020 4:47 AM EST</td><td></td><td> </td> 03/09/2020 04:47:00 AM [facility] BLOOD COUNT COMPLETE AUTOMATED <td>CBC</td><td>Routine </td><td>03/09/2020 4:47 AM EST</td><td></td><td> </td> 03/09/2020 04:47:00 AM [facility] CREATINE KINASE TOTAL <td>CK</td><td>Routine</td>< td>03/09/2020 4:47 AM EST</td><td></td><td> </td> 03/09/2020 04:47:00 AM [facility] BILIRUBIN DIRECT <td>BILIRUBIN, DIRECT</td><t d>Routine</td><td>03/09/2020 4:47 AM EST</td><td></td><td> </td> 03/09/2020 04:47:00 AM [facility] COMPREHENSIVE METABOLIC PANEL <td>COMPREHENSIVE METABO LIC PANEL</td><td>Routine</td><td>03/09/2020 4:47 AM EST</td><td></td><td> </td> 03/09/2020 04:47:00 AM [facility] GLUCOSE QUANTITATIVE BLOOD XCPT REAGENT STRIP <td>POCT GLUCOSE, DOCKED</td><td>Routine</td><td>03/08/2020 9:17 PM EST</td><td></td><td> </td> 03/08/2020 09:17:00 PM [facility] GLUCOSE QUANTITATIVE BLOOD XCPT REAGENT STRIP <td>POCT GLUCOSE, DOCKED</td><td>Routine</td><td>03/08/2020 4:40 PM EST</td><td></td><td> </td> 03/08/2020 04:40:00 PM [facility] GLUCOSE QUANTITATIVE BLOOD XCPT REAGENT STRIP <td>POCT GLUCOSE, DOCKED</td><td>Routine</td><td>03/08/2020 11:46 AM EST</td><td></td><td> </td> 03/08/2020 11:46:00 AM [facility] GLUCOSE QUANTITATIVE BLOOD XCPT REAGENT STRIP <td>POCT GLUCOSE, DOCKED</td><td>Routine</td><td>03/08/2020 8:12 AM EST</td><td></td><td> </td> 03/08/2020 08:12:00 AM [facility] NEUTROPHIL CYTO AB COMMENT <td>NEUTROPHIL CYTO AB COMMENT</td><td>Routine</td><td>03/08/2020 7:04 AM EST</td><td></td><td> </td> 03/08/2020 07:04:00 AM [facility] MICROSOMAL ANTIBODIES EACH <td>LIVER KIDNEY MICROS IGG</td><td>Routine</td><td>03/08/2020 7:04 AM EST</td><td></td><td> </td> 03/08/2020 07:04:00 AM [facility] ACETAMINOPHEN, RANDOM <td>ACETAMINOPHEN, RANDOM</td><td>Routine</td><td>03/08/2020 7:04 AM EST</td><td></td><td> </td> 03/08/2020 07:04:00 AM [facility] NATRIURETIC PEPTIDE <td>PROBNP</td><td>Routine</ td><td>03/08/2020 7:04 AM EST</td><td></td><td> </td> 03/08/2020 07:04:00 AM [facility] FLUORESCENT NONNFCT AGT ANTB TITER EA ANTIBODY <td>VIRGIE TROPHIL CYTOPLASMIC ANTIBODY</td><td>Routine</td><td>03/08/2020 7:04 AM EST</td><td></td><td> </td> 03/08/2020 07:04:00 AM [facility] FALMX-7-QBCGQBMMFIP TOTAL <td>IRCAC-3-[id number]</td><td>Routine</td><td>03/08/2020 7:04 AM EST</td><td></td><td> </td> 03/08/2020 07:04:00 AM [facility] FLUORESCENT NONNFCT AGT ANTB SCREEN EA ANTIBODY <td>KS TOCHONDRIAL ANTIBODIES</td><td>Routine</td><td>03/08/2020 7:04 AM EST</td><td></td><td> </td> 03/08/2020 07:04:00 AM [facility] CERULOPLASMIN <td>CERULOPLASMIN</td><td>Ro utine</td><td>03/08/2020 7:04 AM EST</td><td></td><td> </td> 03/08/2020 07:04:00 AM [facility] ACUTE HEPATITIS PANEL <td>HEPATITIS PANEL, ACUTE</td><td>Routine</td><td>03/08/2020 7:04 AM EST</td><td></td><td> </td> 03/08/2020 07:04:00 AM [facility] GAMMAGLOBULIN IGA IGD IGG IGM EACH <td>IGG SUBCLASSES</td><td>Routine</td><td>03/08/2020 7:04 AM EST</td><td></td><td> </td> 03/08/2020 07:04:00 AM [facility] IADNA HEPATITIS C QUANTIFICATION <td>HEPATITIS C RNA, QUANTITATIVE, PCR</td><td>Routine</td><td>03/08/2020 7:04 AM EST</td><td></td><td> </td> 03/08/2020 07:04:00 AM [facility] FLUORESCENT NONNFCT AGT ANTB SCREEN EA ANTIBODY <td>AN TI-SMOOTH MUSCLE ANTIBODY</td><td>Routine</td><td>03/08/2020 7:04 AM EST</td><td></td><td> </td> 03/08/2020 07:04:00 AM [facility] HEPATITIS B SURF ANTIBODY HBSAB <td>HEPATITIS B SURFAC E ANTIBODY</td><td>Routine</td><td>03/08/2020 7:04 AM EST</td><td></td><td> </td> 03/08/2020 07:04:00 AM [facility] PROTHROMBIN TIME <td>PROTIME INR</td><td>Rout ine</td><td>03/08/2020 7:04 AM EST</td><td></td><td> </td> 03/08/2020 07:04:00 AM [facility] FIBRIN DGRADJ PRODUCTS D-DIMER QUAL/SEMIQUAN <td>D-DIM ER, QUANTITATIVE</td><td>Routine</td><td>03/08/2020 7:04 AM EST</td><td></td><td> </td> 03/08/2020 07:04:00 AM [facility] TRANSFERASE ALANINE AMINO ALT SGPT <td>ALT</td><td>Rou irina</td><td>03/08/2020 7:04 AM EST</td><td></td><td> </td> 03/08/2020 07:04:00 AM [facility] TRANSFERASE ASPARTATE AMINO AST SGOT <td>AST</td><td>R outine</td><td>03/08/2020 7:04 AM EST</td><td></td><td> </td> 03/08/2020 07:04:00 AM [facility] PROTEIN XCPT REFRACTOMETRY SERUM PLASMA/WHL BLD <td>ND OTEIN, TOTAL</td><td>Routine</td><td>03/08/2020 7:04 AM EST</td><td></td><td> </td> 03/08/2020 07:04:00 AM [facility] PHOSPHATASE ALKALINE <td>ALKALINE PHOSPHATASE</td ><td>Routine</td><td>03/08/2020 7:04 AM EST</td><td></td><td> </td> 03/08/2020 07:04:00 AM [facility] LACTATE DEHYDROGENASE LDH <td>LACTATE DEHYDROGENASE</td><td>Routine</td><td>03/08/2020 7:04 AM EST</td><td></td><td> </td> 03/08/2020 07:04:00 AM [facility] FERRITIN <td>FERRITIN LEVEL</td><td>R outine</td><td>03/08/2020 7:04 AM EST</td><td></td><td> </td> 03/08/2020 07:04:00 AM [facility] BILIRUBIN DIRECT <td>BILIRUBIN, DIRECT</td><t d>Routine</td><td>03/08/2020 7:04 AM EST</td><td></td><td> </td> 03/08/2020 07:04:00 AM [facility] BILIRUBIN TOTAL <td>BILIRUBIN, TOTAL</td><td >Routine</td><td>03/08/2020 7:04 AM EST</td><td></td><td> </td> 03/08/2020 07:04:00 AM [facility] SALICYLATE LEVEL <td>SALICYLATE LEVEL</td><td >Routine</td><td>03/08/2020 7:04 AM EST</td><td></td><td> </td> 03/08/2020 07:04:00 AM [facility] RENAL FUNCTION PANEL <td>RENAL FUNCTION PANEL</td ><td>Routine</td><td>03/08/2020 7:04 AM EST</td><td></td><td> </td> 03/08/2020 07:04:00 AM [facility] ULTRASOUND ABDOMINAL REAL TIME W/IMAGE LIMITED <td>US ABDOMEN LIMITED [id number]</td><td>Routine</td><td>03/08/2020 6:56 AM EST</td><td></td><td> </td> 03/08/2020 06:56:24 AM [facility] BLOOD COUNT COMPLETE AUTOMATED <td>CBC</td><td>Routine </td><td>03/08/2020 4:03 AM EST</td><td></td><td> </td> 03/08/2020 04:03:00 AM [facility] COMPREHENSIVE METABOLIC PANEL <td>COMPREHENSIVE METABO LIC PANEL</td><td>Routine</td><td>03/08/2020 4:03 AM EST</td><td></td><td> </td> 03/08/2020 04:03:00 AM [facility] GLUCOSE QUANTITATIVE BLOOD XCPT REAGENT STRIP <td>POCT GLUCOSE, DOCKED</td><td>Routine</td><td>03/07/2020 9:22 PM EST</td><td></td><td> </td> 03/07/2020 09:22:00 PM [facility] GLUCOSE QUANTITATIVE BLOOD XCPT REAGENT STRIP <td>POCT GLUCOSE, DOCKED</td><td>Routine</td><td>03/07/2020 7:13 PM EST</td><td></td><td> </td> 03/07/2020 07:13:00 PM [facility] GLUCOSE QUANTITATIVE BLOOD XCPT REAGENT STRIP <td>POCT GLUCOSE, DOCKED</td><td>Routine</td><td>03/07/2020 5:57 PM EST</td><td></td><td> </td> 03/07/2020 05:57:00 PM [facility] GLUCOSE QUANTITATIVE BLOOD XCPT REAGENT STRIP <td>POCT GLUCOSE, DOCKED</td><td>Routine</td><td>03/07/2020 4:37 PM EST</td><td></td><td> </td> 03/07/2020 04:37:00 PM [facility] GLUCOSE QUANTITATIVE BLOOD XCPT REAGENT STRIP <td>POCT GLUCOSE, DOCKED</td><td>Routine</td><td>03/07/2020 11:43 AM EST</td><td></td><td> </td> 03/07/2020 11:43:00 AM [facility] GLUCOSE QUANTITATIVE BLOOD XCPT REAGENT STRIP <td>POCT GLUCOSE, DOCKED</td><td>Routine</td><td>03/07/2020 8:32 AM EST</td><td></td><td> </td> 03/07/2020 08:32:00 AM [facility] ETHYL ALCOHOL LEVEL <td>ETHYL ALCOHOL LEVEL</td> <td>Routine</td><td>03/07/2020 1:45 AM EST</td><td></td><td> </td> 03/07/2020 01:45:00 AM [facility] BLOOD COUNT COMPLETE AUTOMATED <td>CBC</td><td>Routine </td><td>03/07/2020 1:34 AM EST</td><td></td><td> </td> 03/07/2020 01:34:00 AM [facility] CREATINE KINASE TOTAL <td>CK</td><td>Routine</td>< td>03/07/2020 1:34 AM EST</td><td></td><td> </td> 03/07/2020 01:34:00 AM [facility] COMPREHENSIVE METABOLIC PANEL <td>COMPREHENSIVE METABO LIC PANEL</td><td>Routine</td><td>03/07/2020 1:34 AM EST</td><td></td><td> </td> 03/07/2020 01:34:00 AM [facility] URNLS DIP STICK/TABLET REAGENT AUTO MICROSCOPY <td>URI NALYSIS WITH MICROSCOPIC</td><td>Routine</td><td>03/07/2020 1:18 AM EST</td><td></td><td> </td> 03/07/2020 01:18:00 AM [facility] ULTRASOUND ABDOMINAL REAL TIME W/IMAGE LIMITED <td>US ABDOMEN LIMITED [id number]</td><td>STAT</td><td>03/06/2020 11:31 PM EST</td><td></td><td> </td> 03/06/2020 11:31:17 PM [facility] COVID-19 PCR <td>COVID-19 PCR</td><td>Rou irina</td><td>03/06/2020 10:57 PM EST</td><td></td><td> </td> 03/06/2020 10:57:00 PM [facility] PROTHROMBIN TIME <td>PROTIME INR</td><td>STAT </td><td>03/06/2020 10:57 PM EST</td><td></td><td> </td> 03/06/2020 10:57:00 PM [facility] BLOOD COUNT COMPLETE AUTO&AUTO DIFRNTL WBC COUNT <td>C BC AND DIFFERENTIAL</td><td>Routine</td><td>03/06/2020 10:57 PM EST</td><td></td><td> </td> 03/06/2020 10:57:00 PM [facility] CREATINE KINASE TOTAL <td>CK</td><td>Routine</td>< td>03/06/2020 10:57 PM EST</td><td></td><td> </td> 03/06/2020 10:57:00 PM [facility] HEPATIC FUNCTION PANEL <td>HEPATIC FUNCTION PANEL A</td><td>STAT</td><td>03/06/2020 10:57 PM EST</td><td></td><td> </td> 03/06/2020 10:57:00 PM [facility] BASIC METABOLIC PANEL CALCIUM TOTAL <td>BASIC METABOLI C PANEL</td><td>STAT</td><td>03/06/2020 10:57 PM EST</td><td></td><td> </td> 03/06/2020 10:57:00 PM [facility] HEPATITIS C ANTIBODY <td>HEPATITIS C ANTIBODY</td ><td>Routine</td><td>03/06/2020 10:44 PM EST</td><td></td><td> </td> 03/06/2020 10:44:00 PM [facility] IADNA HEPATITIS C QUANTIFICATION <td>HEPATITIS C RNA, QUANTITATIVE, PCR</td><td>Routine</td><td>03/06/2020 10:44 PM EST</td><td></td><td> </td> 03/06/2020 10:44:00 PM [facility] GLUCOSE QUANTITATIVE BLOOD XCPT REAGENT STRIP <td>POCT GLUCOSE, DOCKED</td><td>Routine</td><td>03/06/2020 9:26 PM EST</td><td></td><td> </td> 03/06/2020 09:26:00 PM [facility] Results ID Date Data Source [id number] 11/19/2020 12:00:00 AM EDT [facility] Name Value Range Interpretation Code Description Data Maria Antonia rce(s) Supporting Document(s) SARS-CoV-2 (COVID-19) N gene [Presence] in Respiratory specimen by [facility] with probe detection Negative [facility] This lab was ordered by [facility] and reported by Julianna. ID Date Data Source [id number] 11/09/2020 12:00:00 AM EDT [facility] Name Value Range Interpretation Code Description Data Maria Antonia rce(s) Supporting Document(s) SARS-CoV-2 (COVID-19) RNA [Presence] in Respiratory specimen by ARAM with probe detection Negative [facility] This lab was ordered by [facility] and reported by Julianna. ID Date Data Source [id number] 10/05/2020 02:27:00 PM EDT [facility] Name Value Range Interpretation Code Description Data Maria Antonia rce(s) Supporting Document(s) SARS coronavirus 2 RNA [Presence] in Res piratory specimen by ARAM with probe detection NEGATIVE [facility] This lab was ordered by [facility] a nd reported by [facility]. ID Date Data Source [id number] 09/23/2020 10:13:52 AM EDT [facility] Name Value Range Interpretation Code Description Data Maria Antonia rce(s) Supporting Document(s) Discharge Summary [facility] PKZAXl3vEnAWXlPc35/NVThrRVUxw2SaXJwcMZx7LBrpOVFdC6YsACG6fR4xVCS3ZEzUPfCfEhJrEiLf [facility] [file] m+iQanNrZ5Av+López/bVEblU9QL2PPbzU7cGCggNn7 [file] zjFq1RVFFobAr88cO2QqKrHT3031je/college or university faculty member/z17NrYq+6/vX8/SaEchY5NRS9tG+0p41bAX7O2p3U/z5f9 [file] AgICAgICAgICAgICAgICAgICAgICAgICAgICAgICAg ICAgICAgICAgICAgICAgICAgICAgICAgDQogICAgICAgICAgICAgICAgICAgICAgICAgICAgICAgICAg ICAgICAgICAgICAgICAgICAgICAgICAgICAgICAgICAgICAgICAgICAgICAgICAgICAgICAgICAgICAg ICAgICAgDQogICAgICAgICAgICAgICAgICAgICAgIC AgICAgICAgICAgICAgICAgICAgICAgICAgICAgICAgICAgICAgICAgICAgICAgICAgICAgICAgICAgIC AgICAgICAgICAgICAgICAgDQogICAgICAgICAgICAgICAgICAgICAgICAgICAgICAgICAgICAgICAgIC AgICAgICAgICAgICAgICAgICAgICAgICAgICAgICAg ICAgICAgICAgICAgICAgICAgICAgICAgICAgDQogICAgICAgICAgICAgICAgICAgICAgICAgICAgICAg ICAgICAgICAgICAgICAgICAgICAgICAgICAgICAgICAgICAgICAgICAgICAgICAgICAgICAgICAgICAg ICAgICAgICAgDQogICAgICAgICAgICAgICAgICAgIC AgICAgICAgICAgICAgICAgICAgICAgICAgICAgICAgICAgICAgICAgICAgICAgICAgICAgICAgICAgIC AgICAgICAgICAgICAgICAgICAgDQogICAgICAgICAgICAgICAgICAgICAgICAgICAgICAgICAgICAgIC AgICAgICAgICAgICAgICAgICAgICAgICAgICAgICAg ICAgICAgICAgICAgICAgICAgICAgICAgICAgICAgDQogICAgICAgICAgICAgICAgICAgICAgICAgICAg ICAgICAgICAgICAgICAgICAgICAgICAgICAgICAgICAgICAgICAgICAgICAgICAgICAgICAgICAgICAg ICAgICAgICAgICAgDQogICAgICAgICAgICAgICAgIC AgICAgICAgICAgICAgICAgICAgICAgICAgICAgICAgICAgICAgICAgICAgICAgICAgICAgICAgICAgIC AgICAgICAgICAgICAgICAgICAgICAgDQogICAgICAgICAgICAgICAgICAgICAgICAgICAgICAgICAgIC AgICAgICAgICAgICAgICAgICAgICAgICAgICAgICAg YJBdCTOaPVOhYFJxTQKnZTXaAPBmBORdAWOcLYPxGIAvWOu8E4zhCEDvQMBuVC8nKQe5Ye7+DQoNCmVu XUY5utLvrT6VSQ1pt3ZhRVkmSEGqw9IpDAy4AG1EDHNkHFprBS2SEWezna8BXCNlXNAeySUAd8apEsMz PAT8CPBsCtzlPJ6PQFNyX0ypfpXnGAEkTZZGKEflGY IAZUzsMUBZIJCtILPuCdRtVjPxDDCyBZGtFWXUQET1LYNyHpFwLNHrQNBxPoHeIMXROTNoRNZeKwVsSA lhJV4Lw2QweQKwLI4LMk1DDnKaTW3dmv2CKATjMQNpBdtTApd5VPwkOS5DmAAnoZV2IVBvQCZRZhTnM6 uzj5JsNYBqBCHQFLfwHG2Uj5MadDXmSJg+Fk9VII6p i7BhLKq9OLGjLI2moh0OBPsDDpXsT0EseDzaHCFld4UzJUIuQYMJuA7lDKC5FIX8SMKjtYOjXDFfkBzj UQIEXRPhtMK4NcK0KtJvRzXbBCF0XebiFW5dQWtwWQ8JNMG5VJelUNXzANZaG3kFEePcRSRwMxWrxJpv IX4OVzCaI2CkjsAoyCG1BtJgGQTJRh6+DQplbmRvYm yXWhU3AZZbs2WpQQq2ZN5ZPOAbKOruLB8MHMOcpW3wXWvrLD3DCdC1PVUcBMBRXoJpL72wmIVcIFv2S9 VtYmVkZGVkRmlsZXMgPDwvTmFtZXMgWyBdDQogID4+ID4+BQhoWD9OMYwmorNkEEMjNf0PEFUqRUMcNP 7lQFVgTUPmL6F4vZroDQLHPvYzN2annhyqFY7vXYDc X133xKbzoxRoFXKoMRWiQz0EBNDbBPN3NNSsoGZcKARlFLOZRVylAQ1EdBTcRKO9bA2xEKwcEQRyYRSt P7yRXlVljXviEM27mPlqvgWurWTsHMu+Gt1DCV9qg3IaHAo9ktKpEJqxJAF5BCynKVWgVLBgABJnLHR8 MAH8BLWDWfSrRHBrMCWbFYnmDFDxYISgfn1JTCPcRF O0Oky6VRNaXGLqULHcMKqwAHSgKQS6CXP7QEJcTRAhTJ7WAfFxOHBjOMAnVSmvEWBeQCYruq2ZORMcRB PrJBF2FXRcAEFzVPGsEEvwPDHmRBJ2JpA0TZFaWXTiLN5OWoHfSIGkQNh1MVkdCIRoRTOmwr2TILGjEL LwYYQmQsOhLSIkQECbMVnvDOAlNOA0JVW9AXCaTMVo UW8FEtLeFVTkNBFjCnSuWFNlDYVdpj0HLUGiCZEjZXz7CtMbZIMvDZKlKTshHHKfOST3IOK7TTTdDLPf OT2ZXhKdNCLrYrXtQYqpGJOuBRZvdq5PPIFsJJAkKXCtYHBgVVLaSBLsWImaOPOlIUG7YsF4AZQxPWRh CE5FLfWvTTCkKea5FdGdWKNbQWYicg2OBTTyQUJfWV G9NyIqTHRvHORiAOidJFAzBKA1MXccHKXkRBFxVQ3FAnYqSNIxHln1GEEnKYLgFWMbdf0GVBQiRGXzOX BtFoHzNXHiUMRoQJrxNSAoJBAwEDDdHHTiNHZfBA0XRjRiSPJvYQRhLGRxYRKtFMEmrt2RNIWsKGH3Qx F1FUWoRNNwNNJlRVvzJDUzHQZrJNn6WERaYQMzCJ8R EdTzSBZfTWM4YOfiXQLzOKBinb0ZTDNwSCX0Xbr3OUNwBEBjQOMwCUmcCMTfJFFfKBN7OPFmXKHbWW5S KoQqJANiOOJ6WNEeIDYyCZGtkt7JAPDbATW4QLU8IAWnRFFoXUWuDToxMPWlLIL0Onl2LNPoVZRvQI9M DyVzXWTqOXTtLFGsAVKpRRGvpm4EIKNfWJK2YuR9Ea OnEBFuXANzQPttYFUjGSE6KhC3NDUvVYWoAN1SPdMbCFCvPZy0QHQfRQZpXLTrzo7TYMYaENE1Qve7UV GqHPAbCOKuNKcxKHIzNKR8YBnlTUDoWNMgFK5FWdHqIMNiOOM4TtMcZPBxBGUxfm2YURRzFVU4HmI2WC FtMHDnFALgTNuiVIVnMXDkRyY1ORYkOZEjCL5ASsIv QDYbEGD8RZVxIVOkBVBmxm0ICJJnETD2Jjp5EeIjOETmSLPkMNslVGIsVUU8UMj5TAZxHWBtPT4TKjXe TUPaVCW8UYNrDYTrVNTtnk3LTVTvXMZ4ADm1LwRnMIChQPXzLEotFAIzZFN5AWM0JFEeSRKkUX1LDtAp QZioMEQLUmo4QJakJ1x4WQN5Fz8OW5Fjm9GzOWEbBF BHDHvyDW2hyzXaFIRuJw3HI4iFBqu8CWB9C8XaWvYmFNYrTwAvKuFwP6A8YTAuHIfoHTDxIe8tDGQtTT boIQEbIlHkF7HyQNPwEbR4ENgpQSH0ATQwRQZ2CcWzUA7FEl9QYuD8BIG2rWUzBr6QDOJtOEHHCnZtBK 9GDQo= ID Date Data Source [id number] 09/20/2020 11:45:16 AM EDT [facility] Name Value Range Interpretation Code Description Data Maria Antonia rce(s) Supporting Document(s) Glucose [Mass/volume] in Capillary blood by Glucometer 188 mg/dL 70- 140 [facility] ID Date Data Source [id number] 09/20/2020 07:52:10 AM EDT [facility] Name Value Range Interpretation Code Description Data Maria Antonia rce(s) Supporting Document(s) Glucose [Mass/volume] in Capillary blood by Glucometer 209 mg/dL 70- 140 [facility] ID Date Data Source [id number] [facility] Description Data Maria Antonia rce(s) Supporting Document(s) Bicarbonate [Moles/volume] in Serum 22 mmol/L 22-29 [facility] Chloride [Moles/volume] in Serum or Plasma 103 mmol/L 98-107 [facility] Creatinine [Mass/volume] in Serum or Plasma 0.93 mg/dL 0.70-1.20 [facility] Glucose [Mass/volume] in Serum or Plasma 194 mg/dL 70-140 [facility] Potassium [Moles/volume] in Serum or Plasma 3.8 mmol/L 3.4-5.1 [facility] Sodium [Moles/volume] in Serum or Plasma 133 mmol/L 136-145 [facility] Urea nitrogen [Mass/volume] in Serum or Plasma 16 mg/dL 8-23 [facility] Anion gap 3 in Serum or Plasma 8 mmol/L 8-15 [facility] Osmolality of Serum or Plasma by calculation 282 mosm/kg 275-300 [facility] Creatinine/Urea nitrogen [Mass Ratio] in Serum or Plasma 17 [facility] Calcium [Mass/volume] in Serum or Plasma 7.6 mg/dL 8.8-10.2 L [facility] Glomerular filtration rate/1.73 sq M pre dicted among non-blacks [Volume Rate/Area] in Serum or Plasma by Creatinine-based formula (MDRD) 88 mL/min/1.73m2 >60 [facility] Glomerular filtration rate/1.73 sq M pre dicted among blacks [Volume Rate/Area] in Serum or Plasma by Creatinine-based formula (MDRD) >60 [facility] ID Date Data Source [id number] 09/19/2020 10:21:27 PM [facility] Value Range Interpretation Code Description Data Maria Antonia rce(s) Supporting Document(s) Glucose [Mass/volume] in Capillary blood by Glucometer 194 mg/dL 70- 140 [facility] ID Date Data Source [id number] 09/19/2020 04:11:44 PM [facility] Value Range Interpretation Code Description Data Maria Antonia rce(s) Supporting Document(s) Glucose [Mass/volume] in Capillary blood by Glucometer 325 mg/dL 70- 140 [facility] ID Date Data Source [id number] 09/19/2020 11:43:00 AM [facility] Value Range Interpretation Code Description Data Maria Antonia rce(s) Supporting Document(s) Glucose [Mass/volume] in Capillary blood by Glucometer 301 mg/dL 70- 140 [facility] ID Date Data Source [id number] 09/19/2020 08:46:49 AM [facility] Value Range Interpretation Code Description Data Maria Antonia rce(s) Supporting Document(s) Glucose [Mass/volume] in Capillary blood by Glucometer 126 mg/dL 70- 140 [facility] ID Date Data Source [id number] 09/18/2020 05:11:24 PM [facility] Value Range Interpretation Code Description Data Maria Antonia rce(s) Supporting Document(s) Glucose [Mass/volume] in Capillary blood by Glucometer 408 mg/dL 70- 140 [facility] ID Date Data Source [id number] 09/18/2020 12:14:51 PM [facility] Value Range Interpretation Code Description Data Maria Antonia rce(s) Supporting Document(s) Glucose [Mass/volume] in Capillary blood by Glucometer 321 mg/dL 70- 140 [facility] ID Date Data Source [id number] 09/18/2020 10:14:19 AM [facility] Value Range Interpretation Code Description Data Maria Antonia rce(s) Supporting Document(s) Leukocytes [#/volume] in Blood by Automated count 4.4 10*3/uL 4-10 [facility] Erythrocytes [#/volume] in Blood by Automated count 3.12 10*6/uL 4.6- 6.1 [facility] Hemoglobin [Mass/volume] in Blood 8.9 g/dL 13.5-18 L [facility] Hematocrit [Volume Fraction] of Blood by Automated count 27.4 % 4 1-53 [facility] Erythrocyte mean corpuscular volume [Entitic volume] by Auto mated count 88.1 fL 80-96 [facility] Erythrocyte mean corpuscular hemoglobin [Entitic mass] by Automated count 28.7 pg 27-33 [facility] Erythrocyte mean corpuscular hemoglobin concentration [Mass/volume] by Automated count 32.6 g/dL 32.0-36.0 [facility] al Erythrocyte distribution width [Ratio] by Automated count 21.5 % 11.5-14.5 [facility] Platelets [#/volume] in Blood by Automated count 147 10*3/uL 150-400 [facility] ID Date Data Source [id number] 09/18/2020 10:36:[address] [facility] [place] Name Value Range Interpretation Code Description Data Maria Antonia rce(s) Supporting Document(s) Bicarbonate [Moles/volume] in Serum 19 mmol/L 22-29 [facility] Chloride [Moles/volume] in Serum or Plasma 103 mmol/L 98-107 [facility] Creatinine [Mass/volume] in Serum or Plasma 0.97 mg/dL 0.70-1.20 [facility] Glucose [Mass/volume] in Serum or Plasma 420 mg/dL 70-140 [facility] Potassium [Moles/volume] in Serum or Plasma 3.8 mmol/L 3.4-5.1 [facility] Sodium [Moles/volume] in Serum or Plasma 132 mmol/L 136-145 [facility] Urea nitrogen [Mass/volume] in Serum or Plasma 11 mg/dL 8-23 [facility] Anion gap 3 in Serum or Plasma 10 mmol/L 8-15 [facility] Osmolality of Serum or Plasma by calculation 291 mosm/kg 275-300 [facility] Creatinine/Urea nitrogen [Mass Ratio] in Serum or Plasma 11 [facility] Calcium [Mass/volume] in Serum or Plasma 8.2 mg/dL 8.8-10.2 [facility] Glomerular filtration rate/1.73 sq M pre dicted among non-blacks [Volume Rate/Area] in Serum or Plasma by Creatinine-based formula (MDRD) 86 mL/min/1.73m2 >60 [facility] Glomerular filtration rate/1.73 sq M pre dicted among blacks [Volume Rate/Area] in Serum or Plasma by Creatinine-based formula (MDRD) >60 [facility] ID Date Data Source [id number] 09/18/2020 07:57:[address] [facility] [place] Name Value Range Interpretation Code Description Data Maria Antonia rce(s) Supporting Document(s) Glucose [Mass/volume] in Capillary blood by Glucometer 357 mg/dL 70- 140 [facility] ID Date Data Source [id number] 09/17/2020 05:03:35 PM EDT [facility] Name Value Range Interpretation Code Description Data Maria Antonia rce(s) Supporting Document(s) Glucose [Mass/volume] in Capillary blood by Glucometer 243 mg/dL 70- 140 [facility] ID Date Data Source [id number] 09/17/2020 01:18:33 PM EDT [facility] Name Value Range Interpretation Code Description Data Maria Antonia rce(s) Supporting Document(s) [facility] [id number]/GZXubVNBgq5JsGOkzGNh5IUnkSTDwZ9GdKJV7uU7jVUT0NUeLWpOaWpBgGbE3 lbm [file] [id number]== ID Date Data Source [id number] 09/17/2020 12:07:55 PM [facility] Value Range Interpretation Code Description Data Maria Antonia rce(s) Supporting Document(s) Glucose [Mass/volume] in Capillary blood by Glucometer 218 mg/dL 70- 140 [facility] ID Date Data Source [id number] 09/17/2020 08:01:56 AM [facility] Value Range Interpretation Code Description Data Maria Antonia rce(s) Supporting Document(s) Glucose [Mass/volume] in Capillary blood by Glucometer 280 mg/dL 70- 140 [facility] ID Date Data Source [id number] 09/17/2020 05:11:27 AM [facility] Value Range Interpretation Code Description Data Maria Antonia rce(s) Supporting Document(s) Leukocytes [#/volume] in Blood by Automated count 5.6 10*3/uL 4-10 [facility] Erythrocytes [#/volume] in Blood by Automated count 3.05 10*6/uL 4.6- 6.1 [facility] Hemoglobin [Mass/volume] in Blood 8.6 g/dL 13.5-18 [facility] Hematocrit [Volume Fraction] of Blood by Automated count 26.7 % 4 1-53 [facility] Erythrocyte mean corpuscular volume [Entitic volume] by Auto mated count 87.5 fL 80-96 [facility] Erythrocyte mean corpuscular hemoglobin [Entitic mass] by Automated count 28.2 pg 27-33 [facility] Erythrocyte mean corpuscular hemoglobin concentration [Mass/volume] by Automated count 32.2 g/dL 32.0-36.0 [facility] al Erythrocyte distribution width [Ratio] by Automated count 21.5 % 11.5-14.5 [facility] Platelets [#/volume] in Blood by Automated count 139 10*3/uL 150-400 [facility] ID Date Data Source [id number] 09/17/2020 05:27:54 AM EDT [facility] Name Value Range Interpretation Code Description Data Maria Antonia rce(s) Supporting Document(s) Albumin [Mass/volume] in Serum or Plasma by Bromocresol green (BCG) dye binding method 2.6 g/dL 3.5-5.2 L [facility] al Bilirubin.total [Mass/volume] in Serum or Plasma 0.8 mg/dL <1.2 [facility] Calcium [Mass/volume] in Serum or Plasma 8.5 mg/dL 8.8-10.2 [facility] Chloride [Moles/volume] in Serum or Plasma 105 mmol/L 98-107 [facility] Creatinine [Mass/volume] in Serum or Plasma 0.94 mg/dL 0.70-1.20 [facility] Glucose [Mass/volume] in Serum or Plasma 279 mg/dL 70-140 [facility] Alkaline phosphatase [Enzymatic activity/volume] in Serum or Plasma 114 U/L 40-129 [facility] Potassium [Moles/volume] in Serum or Plasma 3.7 mmol/L 3.4-5.1 [facility] Protein [Mass/volume] in Serum or Plasma 6.0 g/dL 6.4-8.3 [facility] Sodium [Moles/volume] in Serum or Plasma 134 mmol/L 136-145 [facility] Aspartate aminotransferase [Enzymatic activity/volume] in Serum or Plasma 33 U/L <40 [facility] Urea nitrogen [Mass/volume] in Serum or Plasma 9 mg/dL 8-23 [facility] Osmolality of Serum or Plasma by calculation 287 mosm/kg 275-300 [facility] Creatinine/Urea nitrogen [Mass Ratio] in Serum or Plasma 10 [facility] Bicarbonate [Moles/volume] in Serum 18 mmol/L 22-29 [facility] Alanine aminotransferase [Enzymatic activity/volume] in Seru m or Plasma 18 U/L <41 [facility] Anion gap 3 in Serum or Plasma 11 mmol/L 8-15 [facility] Glomerular filtration rate/1.73 sq M pre dicted among non-blacks [Volume Rate/Area] in Serum or Plasma by Creatinine-based formula (MDRD) 87 mL/min/1.73m2 >60 [facility] Glomerular filtration rate/1.73 sq M pre dicted among blacks [Volume Rate/Area] in Serum or Plasma by Creatinine-based formula (MDRD) >60 [facility] ID Date Data Source [id number] 09/17/2020 05:05:13 AM [facility] Value Range Interpretation Code Description Data Maria Antonia rce(s) Supporting Document(s) Ammonia [Moles/volume] in Plasma 32 umol/L 16-60 [facility] ID Date Data Source [id number] 09/17/2020 05:02:14 AM [facility] Value Range Interpretation Code Description Data Maria Antonia rce(s) Supporting Document(s) Lactate [Moles/volume] in Serum or Plasma 2.8 mmol/l 0.5-2.2 [facility] ID Date Data Source [id number] 09/16/2020 09:41:40 PM [facility] Value Range Interpretation Code Description Data Maria Antonia rce(s) Supporting Document(s) Glucose [Mass/volume] in Capillary blood by Glucometer 282 mg/dL 70- 140 [facility] ID Date Data Source [id number] 09/16/2020 05:07:19 PM [facility] Value Range Interpretation Code Description Data Maria Antonia rce(s) Supporting Document(s) Glucose [Mass/volume] in Capillary blood by Glucometer 72 mg/dL 70- 140 [facility] ID Date Data Source [id number] 09/16/2020 11:34:[address] [facility] [place] Name Value Range Interpretation Code Description Data Maria Antonia rce(s) Supporting Document(s) Glucose [Mass/volume] in Capillary blood by Glucometer 215 mg/dL 70- 140 [facility] ID Date Data Source [id number] 09/16/2020 08:09:[address] [facility] [place] Name Value Range Interpretation Code Description Data Maria Antonia rce(s) Supporting Document(s) Glucose [Mass/volume] in Capillary blood by Glucometer 369 mg/dL 70- 140 [facility] ID Date Data Source [id number] 09/16/2020 05:19:[address] [facility] [place] Name Value Range Interpretation Code Description Data Maria Antonia rce(s) Supporting Document(s) Leukocytes [#/volume] in Blood by Automated count 5.4 10*3/uL 4-10 [facility] Erythrocytes [#/volume] in Blood by Automated count 2.83 10*6/uL 4.6- 6.1 [facility] Hemoglobin [Mass/volume] in Blood 8.3 g/dL 13.5-18 L [facility] Hematocrit [Volume Fraction] of Blood by Automated count 24.8 % 4 1-53 [facility] Erythrocyte mean corpuscular volume [Entitic volume] by Auto mated count 87.6 fL 80-96 [facility] Erythrocyte mean corpuscular hemoglobin [Entitic mass] by Automated count 29.2 pg 27-33 [facility] Erythrocyte mean corpuscular hemoglobin concentration [Mass/volume] by Automated count 33.4 g/dL 32.0-36.0 [facility] width [Ratio] by Automated count 21.0 % 11.5-14.5 [facility] Platelets [#/volume] in Blood by Automated count 121 10*3/uL 150-400 [facility] Differential cell count method - Blood [facility] Neutrophils/100 leukocytes in Blood by Automated count 54 % [facility] Lymphocytes/100 leukocytes in Blood by Automated count 26 % [facility] Monocytes/100 leukocytes in Blood by Automated count 15 % [facility] Eosinophils/100 leukocytes in Blood by Automated count 4 % [facility] Basophils/100 leukocytes in Blood by Automated count 1 % [facility] Neutrophils [#/volume] in Blood by Automated count 2.89 10*3/uL 1.8-7 .0 [facility] Lymphocytes [#/volume] in Blood by Automated count 1.41 10*3/uL 1.2-4 .0 [facility] Monocytes [#/volume] in Blood by Automated count 0.81 10*3/uL 0-0.8 [facility] Eosinophils [#/volume] in Blood by Automated count 0.19 10*3/uL 0-0.5 [facility] Basophils [#/volume] in Blood by Automated count 0.08 10*3/uL 0-0.2 [facility] Nucleated erythrocytes/100 leukocytes [Ratio] in Blood by Automated count 0 /100{WBCs} 0-0 [facility] ID Date Data Source [id number] 09/16/2020 05:32:57 AM EDT [facility] Name Value Range Interpretation Code Description Data Maria Antonia rce(s) Supporting Document(s) Bicarbonate [Moles/volume] in Serum 17 mmol/L 22-29 [facility] Chloride [Moles/volume] in Serum or Plasma 108 mmol/L 98-107 [facility] Creatinine [Mass/volume] in Serum or Plasma 0.83 mg/dL 0.70-1.20 [facility] Glucose [Mass/volume] in Serum or Plasma 363 mg/dL 70-140 [facility] Potassium [Moles/volume] in Serum or Plasma 3.7 mmol/L 3.4-5.1 [facility] Sodium [Moles/volume] in Serum or Plasma 136 mmol/L 136-145 [facility] Urea nitrogen [Mass/volume] in Serum or Plasma 8 mg/dL 8-23 [facility] Anion gap 3 in Serum or Plasma 11 mmol/L 8-15 [facility] Osmolality of Serum or Plasma by calculation 295 mosm/kg 275-300 [facility] Creatinine/Urea nitrogen [Mass Ratio] in Serum or Plasma 10 [facility] Calcium [Mass/volume] in Serum or Plasma 9.0 mg/dL 8.8-10.2 [facility] Glomerular filtration rate/1.73 sq M pre dicted among non-blacks [Volume Rate/Area] in Serum or Plasma by Creatinine-based formula (MDRD) >6 0 [facility] Glomerular filtration rate/1.73 sq M pre dicted among blacks [Volume Rate/Area] in Serum or Plasma by Creatinine-based formula (MDRD) >60 [facility] ID Date Data Source [id number] 09/15/2020 04:40:25 PM EDT [facility] Name Value Range Interpretation Code Description Data Maria Antonia rce(s) Supporting Document(s) Glucose [Mass/volume] in Capillary blood by Glucometer 214 mg/dL 70- 140 [facility] ID Date Data Source [id number] 09/15/2020 01:04:30 PM EDT [facility] Name Value Range Interpretation Code Description Data Maria Antonia rce(s) Supporting Document(s) EKG [facility] TDDLNe6wWnHOCsMgo5SlRnTxIMMoEQ0ftki6E4T2eBRmU5YqwDOxv7ttR2XwR5LhNMEdRNQGHM3QbBSe jb2 [file] 8Myl4Ipex/iJUX1FORk+HohtqoFd98S09prSq2PkiKAmCkgNnuEif1Oq26GOmiqMuNUfDOmYNioV0/evp [place] [file] manrique+qasZ/Dg+1yEcv2d8SzE5vM1FbGKO6ct+K8PIvS2AdzDklfKa2n86tV5S/Igpo6ZW3pJMN6I79ry/Z En5+k1hgt9yFH8+iXyUohSWAorYcWs/e5QPVW5KaQd7k7+jeHuhEbhnoArEfe8rJrQ1KRnCAYaoHFAoi st8UN2RIPgycpF9SYp4+R9uy0q1VK+bwzxuyHrGbqm l6VHPkEgkLpByjKD/gxX1/R4Au+ekf9CrgrbxtfyXrd7pQJxeoo4jAAryBl/2R1fese1SwIllMddpi7Q /qZY1/S4+zrr3NInJA4R85p0J6tg8smZ2Uhy8plLrf06TAq8335CzZ1rr99tN9cPm/0iy7zuD0gQ61YA fv6aQU2tb9C+657oP6fkzMLPio+Om9+5vAK8hK7rDR 52TY+31c1F/u4gyxxL34XA/G7c/A2Hsl5qeNkNIMDcNHuJKEfIOE6lpy+W7CufymRw1IJYFCcLUhfLlM 7LhJkwF+pDTxzvicUUPosj9YGGYdv65sOWWu275OTQcg87zQJswh0lsPeyddBojpLWTt6thw1gFmeaX4 qzVImQNoqlKxE1Tzl9RSpSfkBlFFjze9+2aOAFI3Jd XirMhJkwF+rCGqhAU2SboDYR+OKcrwt/wR8yJ4yQin507hixSpijhhTlB7sKXIxT4+h1Zua0i6pzU7wE r68fldD9ROPD1kzO0XsCAO2wHhYXKVDBmUqTmWR//Kz72JnpPSBDH/x2QVGKt2E3x3HT+H46gp/bR3Be CoA4Zl4nq2pIOtfnqjdJcY2LlPcq42gNhFiE2IlSOJ yPGpa8YuUtUsCne2dCBzb2eTdFT0XxhQ+5dUKCPUpy/aZgkfzuTVd4pSgngdfjKlZpy/cMtbecCLyG69 Castañeda/2wErhwYdcUdoJytCRt4h9mcNto+v+V6ZLa8mYgHNUfpXrqxqA1mw0yp4elny42d+XBeKh/BBfL81o 50zmFLbnoVtynQKhhBmRN4IUV9w32p2ppmLvN63Cfi fjcfvm/Mh+2c16vddI4cY94hp3AZ41CBez/wfFQ6KN+Sg/KLEZv0YU1bv1YruQgZ23Ds/FwtB/u6lPUM Jaime/5HCyQKhBi7PqvEFGtqzxyvihUK9+Rozgo70mnLaykmGqi1a+OM+FC7BKHbzo6Mcn22WxUwpJvbmx FKVGPQ6O8vD6ZP7MILfsO7QEeasRYNr2pbLqHT8cR2 rUM9KtuGTAHri9Dy86L7iDMPxLEszlreGCecz60RXLStrnc51iU0xMqzXmHHn4Q941sQaht8t7/ii39C Lcu9sSsx4kHeJdxJL82+Y5qXS6zvwxskrqVg7B3kTt+S792UiMurw4TD/TfTlcPmi3mOgxDb8UbG8g7g v8LiLn++g9N9bDSiTNAVNVHoaUjIKjm+Z333OdzxUJ VSzGNGf4ciASINdb0U/wqRX6S7QN101hJBN6haaHWSTS5FpygCCSNtaNNsWbAUgmLtaIs7CyHcnRtacx 6fF9k++xF5YPGXmNdK+I4njhK9YN8UE3eG9g9j3L6hnSd6riFco3EH0739T/Mh/MfivG5YqYDl0e4DJX s8I2VUqva+4eb5SUsm1QhUuCqr+e8BcS3mag+d2U/G 3L5NCY6jEExfLwOL0tbmnsyYO7Kos6d2R1QY3e1kJ1Vc0avYrsxysgHRhZU6Y4fG9T/Us97F/r7akaMs cWwkIY+5f6nM07BrjgPV00B42tl08O4vB6xwQqea6oDocix/F7fAW/r8EuyZojysSnc/2ZHAu/T1LD5R z4+OGKxqZDZS3W98OZn0mms4cFbSv4YB+b5e+aHvd5 XNf0+Kristi+psUP88KhmV0Z0bD5iDJ+d38VfeKOIgWh6C07i14ajzCRqoqZofChf/7IwJT2HF5EqMRDJ7G N1MJ4Kf/+2OOLDaAf5XsTNSAqURKrzpZGRf/+1WNNFQchSqrHJTDwJ1e5gnt5m95feI+92rdfveLhLkw 5+lcT45fgXJBsYk1K5IZegs3rirvaop/Gv0a9iE73d 5n0l5M+wOU1fxKQ4jodaM/W/K+MlatLylly01thV4Zs+EW2+wbwdcq6p1Yylm1q0INo/7d6j90BJ+/3+ F7IiaH08DOlnmet7Mt14qyc0887/R8O1b5jujeVv93Qi9s583lqO+tcS5Ij7e5c9c9r6WT+842UzT3+J [file] A+c/uPBG8M0H+EnphB+5y2HeM8NwrI++sV+QD [file] [id number] ID Date Data Source [id number] 09/15/2020 10:30:05 PM [facility] Value Range Interpretation Code Description Data Maria Antonia rce(s) Supporting Document(s) Procalcitonin [Mass/volume] in Serum or Plasma 0.06 ng/mL <0.10 [facility] (NOTE) < 0.25 ng/mL Bacterial infec tion unlikely,particularly lower respiratory tract infections.0.25 -<0.50 ng/mL Low risk for progression to severe sepsis/septic shock. Localized infection is possible. Measurement done early (<6 hours) after systemic process starts may still be low.0.50 - 2.00 ng/mL Moderate risk for progression to sepsis/septic shock. > 2.00 ng/mL High risk for progression to sepsis/septic shock. ID Date Data Source [id number] 09/15/2020 12:57:02 PM [facility] Value Range Interpretation Code Description Data Maria Antonia rce(s) Supporting Document(s) Lactate [Moles/volume] in Serum or Plasma 2.5 mmol/l 0.5-2.2 H [facility] ID Date Data Source [id number] 09/15/2020 10:53:03 AM [facility] Value Range Interpretation Code Description Data Maria Antonia rce(s) Supporting Document(s) Glucose [Mass/volume] in Capillary blood by Glucometer 341 mg/dL 70- 140 [facility] ID Date Data Source [id number] 09/15/2020 10:01:39 AM [facility] Value Range Interpretation Code Description Data Maria Antonia rce(s) Supporting Document(s) Lactate [Moles/volume] in Serum or Plasma 2.9 mmol/l 0.5-2.2 [facility] ID Date Data Source [id number] 09/15/2020 07:22:56 AM [facility] Value Range Interpretation Code Description Data Maria Antonia rce(s) Supporting Document(s) Glucose [Mass/volume] in Capillary blood by Glucometer 123 mg/dL 70- 140 [facility] ID Date Data Source [id number] 09/15/2020 04:53:44 AM EDT [facility] Name Value Range Interpretation Code Description Data Maria Antonia rce(s) Supporting Document(s) Leukocytes [#/volume] in Blood by Automated count 5.4 10*3/uL 4-10 [facility] Erythrocytes [#/volume] in Blood by Automated count 2.78 10*6/uL 4.6- 6.1 L [facility] Hemoglobin [Mass/volume] in Blood 8.0 g/dL 13.5-18 L [facility] Hematocrit [Volume Fraction] of Blood by Automated count 24.6 % 4 1-53 L [facility] Erythrocyte mean corpuscular volume [Entitic volume] by Auto mated count 88.6 fL 80-96 [facility] Erythrocyte mean corpuscular hemoglobin [Entitic mass] by Automated count 28.9 pg 27-33 [facility] Erythrocyte mean corpuscular hemoglobin concentration [Mass/volume] by Automated count 32.6 g/dL 32.0-36.0 [facility] width [Ratio] by Automated count 21.1 % 11.5-14.5 H [facility] Platelets [#/volume] in Blood by Automated count 120 10*3/uL 150-400 L [facility] Differential cell count method - Blood [facility] Neutrophils/100 leukocytes in Blood by Automated count 47 % [facility] Lymphocytes/100 leukocytes in Blood by Automated count 33 % [facility] Monocytes/100 leukocytes in Blood by Automated count 14 % [facility] Eosinophils/100 leukocytes in Blood by Automated count 4 % [facility] Basophils/100 leukocytes in Blood by Automated count 2 % [facility] Neutrophils [#/volume] in Blood by Automated count 2.54 10*3/uL 1.8-7 .0 [facility] Lymphocytes [#/volume] in Blood by Automated count 1.79 10*3/uL 1.2-4 .0 [facility] Monocytes [#/volume] in Blood by Automated count 0.77 10*3/uL 0-0.8 [facility] Eosinophils [#/volume] in Blood by Automated count 0.22 10*3/uL 0-0.5 [facility] Basophils [#/volume] in Blood by Automated count 0.11 10*3/uL 0-0.2 [facility] Nucleated erythrocytes/100 leukocytes [Ratio] in Blood by Automated count 0 /100{WBCs} 0-0 [facility] ID Date Data Source [id number] [facility]2020 [facility]07[facility] Interpretation Code Description Data Maria Antonia rce(s) Supporting Document(s) Bicarbonate [Moles/volume] in Serum 18 mmol/L 22-29 L [facility] Chloride [Moles/volume] in Serum or Plasma 111 mmol/L 98-107 H [facility] Creatinine [Mass/volume] in Serum or Plasma 0.88 mg/dL 0.70-1.20 [facility] Glucose [Mass/volume] in Serum or Plasma 80 mg/dL 70-140 [facility] Potassium [Moles/volume] in Serum or Plasma 3.7 mmol/L 3.4-5.1 [facility] Sodium [Moles/volume] in Serum or Plasma 141 mmol/L 136-145 [facility] Urea nitrogen [Mass/volume] in Serum or Plasma 9 mg/dL 8-23 [facility] Anion gap 3 in Serum or Plasma 12 mmol/L 8-15 [facility] Osmolality of Serum or Plasma by calculation 290 mosm/kg 275-300 [facility] Creatinine/Urea nitrogen [Mass Ratio] in Serum or Plasma 10 [facility] Calcium [Mass/volume] in Serum or Plasma 8.3 mg/dL 8.8-10.2 L [facility] Glomerular filtration rate/1.73 sq M pre dicted among non-blacks [Volume Rate/Area] in Serum or Plasma by Creatinine-based formula (MDRD) 90 mL/min/1.73m2 >60 [facility] Glomerular filtration rate/1.73 sq M pre dicted among blacks [Volume Rate/Area] in Serum or Plasma by Creatinine-based formula (MDRD) >60 [facility] ID Date Data Source [id number] 09/15/2020 05:04:[address] [facility] [place] Name Value Range Interpretation Code Description Data Maria Antonia rce(s) Supporting Document(s) Lactate [Moles/volume] in Serum or Plasma 2.3 mmol/l 0.5-2.2 H [facility] ID Date Data Source [id number] 09/14/2020 09:56:34 PM EDT [facility] Value Range Interpretation Code Description Data Maria Antonia rce(s) Supporting Document(s) Lactate [Moles/volume] in Serum or Plasma 2.1 mmol/l 0.5-2.2 [facility] ID Date Data Source [id number] 09/14/2020 09:42:[address] [facility] [place] Name Value Range Interpretation Code Description Data Maria Antonia rce(s) Supporting Document(s) Glucose [Mass/volume] in Capillary blood by Glucometer 250 mg/dL 70- 140 [facility] ID Date Data Source [id number] 09/14/2020 05:00:23 PM [facility] Value Range Interpretation Code Description Data Maria Antonia rce(s) Supporting Document(s) Glucose [Mass/volume] in Capillary blood by Glucometer 283 mg/dL 70- 140 [facility] ID Date Data Source [id number] 09/14/2020 05:09:22 PM [facility] Value Range Interpretation Code Description Data Maria Antonia rce(s) Supporting Document(s) Creatine kinase [Enzymatic activity/volume] in Serum or Plasma 199 U/L 20-200 [facility] ID Date Data Source [id number] 09/14/2020 04:56:02 PM [facility] Value Range Interpretation Code Description Data Maria Antonia rce(s) Supporting Document(s) Lactate [Moles/volume] in Serum or Plasma 2.0 mmol/l 0.5-2.2 [facility] ID Date Data Source [id number] 09/14/2020 02:46:[address] [facility] [place] XR CHEST FRONTAL ONLY [id number] RESULTI nterpreted by:Oseas Hughes [facility]: Exam: XR Chest Exam date and time: 09/14/2020 2:17 PM Age: 65 years old Clinical indication: Cerebral infarction, unspecified; Other: Agitation, elevated lactic acid TECHNIQUE: Imaging protocol: XR of the chest. Views: 1 view. COMPARISON: CT ANGIOGRAPHY THORAX [id number] 09/11/2020 5:16 PM FINDINGS: Lungs: Bilateral opacities consistent with atelectasis or pneumonia. Pleural spaces: Unremarkable. No pleural effusion. No pneumothorax. Heart/Mediastinum: Unremarkable. No cardiomegaly. Bones/joints: No acute findings. IMPRESSION: Bilateral atelectasis versus pneumonia. THIS DOCUMENT HAS BEEN ELECTRONICALLY SIGNED BY OSEAS HUGHES MDThis document has been electronically signed by Oseas Hughes MD on 09/14/2020 2:45 PM Name Value Range Interpretation Code Description Data Maria Antonia rce(s) Supporting Document(s) ID Date Data Source [id number] 09/14/2020 01:16:11 PM [facility] Name Value Range Interpretation Code Description Data Maria Antonia rce(s) Supporting Document(s) Consultation [facility] XJLANn9iHrNNAwPn65/VBJfkCVCvv3ZeFSxpNLs6FFaiAEGmP6CfXAO3yC6iWPV0ARaNYfHmWxMdCaJt lbm [file] 904qXAw4NPqgbPg/5Hq72n4hsHq5cxtjhhZDLRo8Yyd2BNO/nq6V8yQdda43VLX7h47k2YtN1w/zp+ r7FNtxmjl9Nmd1RgoRPWJRAGfUw0BbAk06nPAG+DhI4LwGpZ4lEPi4SU9myPRtX8+uA/RW6fGmkDrpqL v+J1sfYZiZLUNr7ku7+SyWeVv+I4ejDYhev/szx5Vv uzxakewl7nrujltIsAdsJnCU28A4lISJp2+DOwmdMOJza0qFFBnSSXEQuBEeMi+DB23zYn6aNS4zGw5K nKBPmyalf0mzwx9Kua3gRbebXgtRt3juP852ZBcyi7wjGrjHArTxtFPN+G3i+Ca9ECnFRw5YL3Kllyp+ 8mq+hIKDcGkRYnz0SG+ZMgRSKwtAzfJhE6n2kP5r1d /f7MVVimp0DTCxh5tCjsSRDQAnFPprqlkLmbvHK6XB3uLpQYFgRzniYKKI2q5PYMtKjeqcRYqffdNFZT REkVS1sGf24HESUw+36bylrqJcd6jJU7wN8uIp9+PR3tpVH70BIp2D4Cw0I2hyLAQPf//0XZnGjVgy52 UObl7838bzlBrpBYNgFmclYasjvtHlujFFl2q7XTdW Yl8Tx7DiHc316M1N3P5IYnJ+Frn8JsBkouijPGUcJJe+iR7EE4n2CD2oWc5M9JnHm8roLHaZ1YHZcjRA L1ztp84XG1ev/6vU7c+eb/9jfW1PJKzVTgvYsO8+pd+fi5FTl8up3glwO4GSHN5Zr/4QpOPTr8/O9TuZ mKUkjUeefRdqkIQr482qWVIX5lc1MarEOSPYYMbWA3 Xt95kOIPUzMjB3uZ6I1fqAX5WwKeA+cYt+5tFgT96b8XWJze9KDBz/Rose Mary/yo0/34NGKbyG9y3H6NnSma [file] ICAgICAgICAgICAgICAgICAgICAgICAgICAgICAgIC AgICAgICAgICAgICAgICAgICAgICAgICAgICAgICAgICAgICAgICAgICAgICAgICAgICAgICAgICAgIC QvLE3QMHXdMHVxIQQvTTLlBSIcQIXfAKMzVIVzSXWtEYMqALIzSJRpLVZhIMBcIXVcVVZaVBNiZOTqKE AgICAgICAgICAgICAgICAgICAgICAgICAgICAgICAg PNLwITRuODWxGXFsJA8KAAYpVUSaWCMzODWgSGOwYOVqEXAuCLLjTKOiTGXbEFGwOSIhGTUcQUVvDUId STQpFOFgYUMaRARtMRYoBVZyPWErDAQdQYCkEYKeFQXvMTQdHNAuAOItZGFoHVNpOVYiHZXqIP2BQJWg ICAgICAgICAgICAgICAgICAgICAgICAgICAgICAgIC AgICAgICAgICAgICAgICAgICAgICAgICAgICAgICAgICAgICAgICAgICAgICAgICAgICAgICAgICAgIC FoPZMrTM0AKTQiEQQbMUMxZGHjAVHcPZFuAMEvKBMgZWEtSGPxLQGhZLYxZWLuZXYhSODePNCnYOZxNG AgICAgICAgICAgICAgICAgICAgICAgICAgICAgICAg CSOtPAVlFEXjRZBjYHKrDS5LFFQaNUNqMDOjVQLmJZDkTXUxNACvGKBlDOZvWGUnYVScAEDcAESmTOWk EZPuYKYnGZYoVHCaIDAeDIRtBRJtUODgTLBmWABlQALrGSSfSKJvWBByGZKhJYKlKMDxZZEfXTPkIS6P ICAgICAgICAgICAgICAgICAgICAgICAgICAgICAgIC AgICAgICAgICAgICAgICAgICAgICAgICAgICAgICAgICAgICAgICAgICAgICAgICAgICAgICAgICAgIC UlAAIlRQSmGH9EQWXnVBQpPGGvMHEcZRPfJKFyYWMaFSVgQJQhGHTsYWJnZQJkDOKcXXNjTSBzZZCaYR AgICAgICAgICAgICAgICAgICAgICAgICAgICAgICAg BYAmRHMoGIOtJUQlJLZtUHBdPP3HRJVpVNBuKNSnLXYiXHFgYGZsTTOrXZMwEZRxVCZoPPFyJKPzRZDy ICAgICAgICAgICAgICAgICAgICAgICAgICAgICAgICAgICAgICAgICAgICAgICAgICAgICAgICAgICAg VC4VZY30eINew7G5GLHwXX9bemw/Uy1MCZcwczMslU MpMK9YLfZvSU3mcr0YFuVkZG2dsg7JGBhOVsVcU5B6iOXqOLCfOHSYYeJiG87bDScnFh84XXnbYQViQl DjKDn3Nd4BSpAkU7iaGKVuJgS7CYXxSxH1LBYoLlU0QQJzXjKwPYQoQVNjJZAuSECFBFO6VDJdCnMhGx SfALKiPN6VQTUfL386hrGpHf2NDn9XWvMvZA0hcy7E NsdxJXKmQoqPEdu5ZVmeTS5IqCLdrRXiBLZqZAQVZtLbZ0cmw8OaGrfwHOBOQNwyCN8Tz1EedNFoOYt+ Dt9LWU7yr9KhSHoiQPCyBX6xyb5DPEtYAoNsK9YtuUkzFOUuxvB6rRQnCJS8PMA2cgNePZKmHLE8JCgx QYNiPIMvTm4mTp7dUHSdGALfXcB5XTQHSJ6ERDUqAS FsdFSxBDVqBVASIW7XPFizBMS8AACrhuCqrUUnDMplCM8HDDEedoGkWfucKUGJRBm+Rb6QDF4ca3UdMX vuOLXhSP9fxg0DWZlZSvRaX8L3fLQhC6Q5XVblQa9QLTWePXSrGaJzCXLTYNnaLU9HCF2jrtW5CE8BjF GkSQVrEUXffRLbWLi2Q72rwFArQXfpNT3SFFN+Adi+ Cd0LCYUkTHXyRUOfLfMaQOHAMjHxX0GzY0KAy9SrD5QbJQ09vTaevpFkGCdfQM7ZVT8wMQMkHTRZIR3O qPEbmD7mpnKeCaVvDFWAQmPfT26xdMFpLZZdMUX0BEEuOg8UVRCbE9OeahZdgMjlkxXvWRIxDFKPWN9Z JUhqewScnCSebKpkRR25hMmtLX9NJs8LAnBnGL8evc 0RoYNgFv1MMBF3BS9WSMBbNUTpAVZjUBO8KZVpBgSmFOltDQPuHWYaBSY3LRZzOANaHZ4MZgRvOAHnXu sjGBwuHMHdQFNoda3ODFJkOVNvBTh5TXFdVJWiEOOfUDgmPSEuCWGrTLI8NYSmFAHkZU3CTaArUDFbDO L4EPIbJXGuZVKbqt5YRHMtNEQbGkN0SMNuNOLpULXq LVbfBHYaCAA8WHT2EGYfQDLdVE3HZvYzIBXtCBZfJupwAVSkCEShwv2KCIBbAFJkOGP9OlCwTWXrAWUr UEpwAJBoHGM7DBT4MCQxVERnXA2ZIvHzTNQpITRsNCDjRYRmLUOxcm4OGYJlVWEmMmX5LENfOJWaCLHz KJitYEBuUKK7PrRbJRInIPIdUV9BTeHpHSDtFRE8XD sfCYBpBHWkbl8QIXMjVWWrBIjrTqOaXKGwFBWiLPxcRVLkZMZ5NDAgBTPpTIAoVH8VAhMwVZYgCwCbTQ WqEKQsBLXfnn0HEEXnZYZaEYKnUTLpKPAwZVOhZEjiEMCmJUVpDzpqQBXkZLEnJB1FZkLeOHXnHnR3Tj xePIYdFOVjei2QCYBxRJZwVTm4VTQySHVsQLTlBUfz HPXjWMBoAmY9QOGqCXMnMR3LVtCwDXNrJkE6PMUbDGHkTRGiqb8MEDKyHGDbOfN9MRHaIDXkDTRrMMdd TBXlGEL9WAZ7KQHaURJcAL6PIdJeOPAoDoCqTTGiRGGkLXSrod3APXAzYEBoAUFpFSQwTZOcXRKvPUds OTNfOSS6Ipl5VEVaTDPdLS9LQcLgXFNeTvU2CIKkEW DcEDQdpa2EGAEvIXVqWJf3IXOrFKUqKWPjFStoNNZhUGD4NPvqWIMsODKbNN8OOrRsNFGtWpw8EJTkGS UbUVCcnw9LWSXzNOCqTotcNEGdZFMqKFMqTKfuQPUuRHJ9QFK0ECRdYVBvLT2DCnCtDPHgOkmrWWTrXN LiPYDkpy1BJNVwIUFiJNZdKFMqPFJjDYAxSFraOJSr BHO2SNw8XDGvNRBrAL3HKpGtASWwYSIzSlygIZQuNYYxfq7BXEZvNMN4FEJpHTSdSNKpHUWpYGc2lrNt sWViMSb3BS4HA8YmxyDyAGNPLx4Vv056ESJ9VOKkIo6OL7qmVh5nAIIdPKBDIz1KFLp2FML0QsL8Q7Ar QPKgGiExVrO4NwR2DEfeNMVwOXW6VMf+WRjtCNu9Xy b4FuDoCbKwEPH5XyqtFHo1AEZ1VEJzFAJ6IR2jIFCTUx0+DQpzdGFydHhyZWYNCjQwNDUyDQolJUVPRg 0K ID Date Data Source [id number] 09/14/2020 12:50:44 PM EDT [facility] Value Range Interpretation Code Description Data Maria Antonia rce(s) Supporting Document(s) Glucose [Mass/volume] in Capillary blood by Glucometer 186 mg/dL 70- 140 H [facility] ID Date Data Source [id number] 09/14/2020 01:22:26 PM [facility] Value Range Interpretation Code Description Data Maria Antonia rce(s) Supporting Document(s) Lactate [Moles/volume] in Serum or Plasma 3.7 mmol/l 0.5-2.2 H [facility] ID Date Data Source [id number] 09/14/2020 12:50:44 PM [facility] Value Range Interpretation Code Description Data Maria Antonia rce(s) Supporting Document(s) Glucose [Mass/volume] in Capillary blood by Glucometer 150 mg/dL 70- 140 [facility] ID Date Data Source [id number] 09/14/2020 12:50:44 PM [facility] Value Range Interpretation Code Description Data Maria Antonia rce(s) Supporting Document(s) Glucose [Mass/volume] in Capillary blood by Glucometer 80 mg/dL 70- 140 [facility] ID Date Data Source [id number] 09/14/2020 12:50:44 PM [facility] Value Range Interpretation Code Description Data Maria Antonia rce(s) Supporting Document(s) Glucose [Mass/volume] in Capillary blood by Glucometer 55 mg/dL 70- 140 L [facility] ID Date Data Source [id number] 09/14/2020 10:59:07 AM [facility] Value Range Interpretation Code Description Data Maria Antonia rce(s) Supporting Document(s) Glucose [Mass/volume] in Capillary blood by Glucometer 52 mg/dL 70- 140 [facility] ID Date Data Source [id number] 09/14/2020 08:25:49 AM [facility] Value Range Interpretation Code Description Data Maria Antonia rce(s) Supporting Document(s) Lactate [Moles/volume] in Serum or Plasma 2.1 mmol/l 0.5-2.2 [facility] ID Date Data Source [id number] 09/14/2020 07:53:44 AM [facility] Value Range Interpretation Code Description Data Maria Antonia rce(s) Supporting Document(s) Glucose [Mass/volume] in Capillary blood by Glucometer 222 mg/dL 70- 140 [facility] ID Date Data Source [id number] 09/14/2020 05:48:48 AM [facility] Value Range Interpretation Code Description Data Maria Antonia rce(s) Supporting Document(s) Ammonia [Moles/volume] in Plasma 48 umol/L 16-60 [facility] ID Date Data Source [id number] 09/14/2020 05:29:02 AM [facility] Value Range Interpretation Code Description Data Maria Antonia rce(s) Supporting Document(s) Leukocytes [#/volume] in Blood by Automated count 6.8 10*3/uL 4-10 [facility] Erythrocytes [#/volume] in Blood by Automated count 2.87 10*6/uL 4.6- 6.1 L [facility] Hemoglobin [Mass/volume] in Blood 8.2 g/dL 13.5-18 L [facility] Hematocrit [Volume Fraction] of Blood by Automated count 25.2 % 4 1-53 L [facility] Erythrocyte mean corpuscular volume [Entitic volume] by Auto mated count 87.7 fL 80-96 [facility] Erythrocyte mean corpuscular hemoglobin [Entitic mass] by Automated count 28.5 pg 27-33 [facility] Erythrocyte mean corpuscular hemoglobin concentration [Mass/volume] by Automated count 32.5 g/[facility].0[facility] distribution width [Ratio] by Automated count 20.9 % 11.5-14.5 H [facility] Platelets [#/volume] in Blood by Automated count 124 10*3/uL 150-400 L [facility] Differential cell count method - Blood [facility] Neutrophils/100 leukocytes in Blood by Automated count 54 % [facility] Lymphocytes/100 leukocytes in Blood by Automated count 28 % [facility] Monocytes/100 leukocytes in Blood by Automated count 14 % [facility] Eosinophils/100 leukocytes in Blood by Automated count 3 % [facility] Basophils/100 leukocytes in Blood by Automated count 1 % [facility] Neutrophils [#/volume] in Blood by Automated count 3.70 10*3/uL 1.8-7 .0 [facility] Lymphocytes [#/volume] in Blood by Automated count 1.86 10*3/uL 1.2-4 .0 [facility] Monocytes [#/volume] in Blood by Automated count 0.94 10*3/uL 0-0.8 H [facility] Eosinophils [#/volume] in Blood by Automated count 0.19 10*3/uL 0-0.5 [facility] Basophils [#/volume] in Blood by Automated count 0.08 10*3/uL 0-0.2 [facility] Nucleated erythrocytes/100 leukocytes [Ratio] in Blood by Automated count 0 /100{WBCs} 0-0 [facility] ID Date Data Source [id number] 09/14/2020 05:47:18 AM EDT [facility] Name Value Range Interpretation Code Description Data Maria Antonia rce(s) Supporting Document(s) Bicarbonate [Moles/volume] in Serum 19 mmol/L 22-29 L [facility] Chloride [Moles/volume] in Serum or Plasma 105 mmol/L 98-107 [facility] Creatinine [Mass/volume] in Serum or Plasma 0.83 mg/dL 0.70-1.20 [facility] Glucose [Mass/volume] in Serum or Plasma 266 mg/dL 70-140 [facility] Potassium [Moles/volume] in Serum or Plasma 3.9 mmol/L 3.4-5.1 [facility] Sodium [Moles/volume] in Serum or Plasma 134 mmol/L 136-145 L [facility] Urea nitrogen [Mass/volume] in Serum or Plasma 11 mg/dL 8-23 [facility] Anion gap 3 in Serum or Plasma 10 mmol/L 8-15 [facility] Osmolality of Serum or Plasma by calculation 287 mosm/kg 275-300 [facility] Creatinine/Urea nitrogen [Mass Ratio] in Serum or Plasma 14 [facility] Calcium [Mass/volume] in Serum or Plasma 8.9 mg/dL 8.8-10.2 [facility] Glomerular filtration rate/1.73 sq M pre dicted among non-blacks [Volume Rate/Area] in Serum or Plasma by Creatinine-based formula (MDRD) >6 0 [facility] Glomerular filtration rate/1.73 sq M pre dicted among blacks [Volume Rate/Area] in Serum or Plasma by Creatinine-based formula (MDRD) >60 [facility] ID Date Data Source [id number] 09/14/2020 05:45:[address] [facility] [place] Name Value Range Interpretation Code Description Data Maria Antonia rce(s) Supporting Document(s) Lactate [Moles/volume] in Serum or Plasma 3.0 mmol/l 0.5-2.2 H [facility] ID Date Data Source [id number] 09/14/2020 12:54:[address] [facility] [place] Name Value Range Interpretation Code Description Data Maria Antonia rce(s) Supporting Document(s) Color of Urine [facility] Clarity of Urine [facility] Specific gravity of Urine by Refractometry automated 1.012 1.003 -1.030 [facility] pH of Urine by Automated test strip 6.0 5.0-8.0 [facility] Protein [Mass/volume] in Urine by Automated test strip Neg [facility] Glucose [Mass/volume] in Urine by Automated test strip 50 mg/dL Neg ative A [facility] Ketones [Mass/volume] in Urine by Automated test strip Neg [facility] Bilirubin.total [Presence] in Urine by Automated test strip Negative [facility] Hemoglobin [Presence] in Urine by Automated test strip Neg [facility] Leukocyte esterase [Presence] in Urine by Automated test strip Negative [facility] Nitrite [Presence] in Urine by Automated test strip Negati ve [facility] Leukocytes [#/area] in Urine sediment by Automated count 0 -5 [facility] Erythrocytes [#/area] in Urine sediment by Automated count 0-3 [facility] Epithelial cells.squamous [#/area] in Urine sediment by Automate d count None [facility] ID Date Data Source [id number] 09/14/2020 01:21:26 AM [facility] Value Range Interpretation Code Description Data Maria Antonia rce(s) Supporting Document(s) Lactate [Moles/volume] in Serum or Plasma 4.1 mmol/l 0.5-2.2 [facility] Results called to and read back by ROSMERY CARPENTER RN 9E [id number] ID Date Data Source [id number] 09/14/2020 03:42:08 AM [facility] Value Range Interpretation Code Description Data Maria Antonia rce(s) Supporting Document(s) Glucose [Mass/volume] in Capillary blood by Glucometer 248 mg/dL 70- 140 [facility] ID Date Data Source [id number] 09/13/2020 10:28:59 PM [facility] Value Range Interpretation Code Description Data Maria Antonia rce(s) Supporting Document(s) History and Physical [facility] ZLZBSg3rFfUAHjWq25/XBKavTBUmr6MkKPwnRAp7LNheZWFsD5RlFOP5mH9kTPI8TEdKWmMzXnVyGgVd [facility] [file] gx/7J8BjhZsLe+fsyve45Sr7p96EuJKRqENAEq+LJlxkVqMqyujwdJve7WlilUf6BbolKRaWc/OM/+[employer]LL[employer] [file] AgICAgICAgICAgICAgICAgICAgICAgICAgICAgICAgICAgICAgICAgICAgICAgICAgICAgICAgICAgIC AwKX7RCMOnHLAbEHXsLKMzNETbTQCfONZtDGPrPFCi ICAgICAgICAgICAgICAgICAgICAgICAgICAgICAgICAgICAgICAgICAgICAgICAgICAgICAgICAgICAg SWEbDBCsNZWyGCAgFU9YXONyUTHcFXQpKMOrLMRfWYFtXYRzEEMoSQIrWJElSWArOOLmZRNpALFcLMGs ICAgICAgICAgICAgICAgICAgICAgICAgICAgICAgIC BmMUViLMPkVLVkQQTvOZMsQSBgHNGlAO6CUXRwHZVoAVFvXTIrABXbZUPtGPXoQTErPNCjFDNwJYNtEW AgICAgICAgICAgICAgICAgICAgICAgICAgICAgICAgICAgICAgICAgICAgICAgICAgICAgICAgICAgIC KvIXXbAV0OMKXfQRIpNLUkNDZkAJAxKEUaQCBnMKNm ICAgICAgICAgICAgICAgICAgICAgICAgICAgICAgICAgICAgICAgICAgICAgICAgICAgICAgICAgICAg LOTdMPZvBVDrRSQxSHHwWN1ITHJgLIQrBBDdIVVpBGUnKFTkVPSwYRWuGCWcQZSeBNLdFNKxNTWlZNHt ICAgICAgICAgICAgICAgICAgICAgICAgICAgICAgIC TiXRTwGNLzARUlRHCpHWYcRAEeYDRmFJKtKK2ZYWInIRLgOPWgZYVwJRAcRKGqTTZfZZEaELGjOPFkTJ AgICAgICAgICAgICAgICAgICAgICAgICAgICAgICAgICAgICAgICAgICAgICAgICAgICAgICAgICAgIC NqRWNdWKEoMD2XZCMrNUAsKUVwKYBcRTHnTEHsRCWk ICAgICAgICAgICAgICAgICAgICAgICAgICAgICAgICAgICAgICAgICAgICAgICAgICAgICAgICAgICAg VWDdFVSvPMOcCTGkWRZyTRYhHG3FUHKsDHOkLCZbGBMeHWYnVFBvASYrCIMxDPLkLADdPTFlPIIoNNUf ICAgICAgICAgICAgICAgICAgICAgICAgICAgICAgIC YzKOWqVNOrHVYxVURaHKQlMRDsWOLlQAWaFEQzOG8JEQLeZBVcLDAtNARnLJWsUUAoZCFvXNPhRFAwYN AgICAgICAgICAgICAgICAgICAgICAgICAgICAgICAgICAgICAgICAgICAgICAgICAgICAgICAgICAgIC VvGGJeQATsEWUgKJ8ZPQ51cYHlb9Q0FVAaIN7jaka/ Xy3CMLcwdoFzgYAtDC8DHhGbOR2dwu3ZSqLeRF5zrt0TABzCBdRmN2Q1fZBaISEwSMIZWbFoE76tWDfa Cr97WFcbBKShSrFzLHk2Gd5XJnRiI1vcGVRbObW0IJQeFoP2RSJcOqP2NVEgAlSvULUkEVZqAUAzQQUT JBF0YQAkQzLqWsVoPKSkHEtjLHJVPLCfKPEmGdSuHV xeLE2Yc7ZzuVS9GWk+Lv5KZI8zf3UqVVo5DYLrKN2pkp9OCDhAApJcA5VzwoQ5ODG3FGZxYo6SLGLgGL FzuDO2ZEHoEAUIGjAcN1SrdC27ADRHVq1+RXoteuKjKcgTVgO6WIWjd4QcNMv5WP5FXDObUBx5eNKcCN TOINB3OLWyfVRsHEugnv2qfovhNH3ZNSR3ECgoMUEh WvSgZFDzJaq1GaESCOrJKeDjE4Ebe5HlLiK5BNAaNkVbATojGCQtRhD8CP64zLfzAY9THBIwJSRoLM22 LUU7CNSqJd3AVa6KWtXvZQ4bbc5TEONxYSPmVreBVzx8CDicYF9OiGErE7NbhXIgg7lJNcSmC5WQVNEk KGPyYd3KMUCwAwHfFVCqJIliKU7iPYZhRNVPvTeemq I3TM3RJP6ebvJgIM2ORcYgMw3bIj5LWsRjX3VqF5MrRFPoEOSANMvcWB2HPOqtEQ3wHI7Dx8EByJCdoF 2yps4PFQRiUAVqIgmakp6FPebhS3M2aEjhQRYtWHDuWLXRZUdgYV0XLLYuUDR8GWW0PkJcDXOMHiVfX6 5dDC6ZN4Hwf26xFxY4RZVfYzEmYBtrLG60tUrlixPx qGAamJcmFU2BMa8+GMobfrWyDpuUOniwSVOEHgVrJYxAQsUuOZVqBENoVWNvRjQ0BrBxGd8VERXeUEVc NZMlQxItCYHxWPLdNMdpFKCePGD0QWP0PTKxULRqSW8GQaPiQLPjAeB5QrOkMOElAJVnls3VTUGgYSQc ZTC2RvAwODPaKNSyGTajBKYaFYG7UXCzHIItPMCtER 2MXmWzJLJsRRQ8LmFuKODyOZYtsm1UOQNiRDBeWsb6MSGzPXOeRAYxNXmiIZJqAHS2GUVlLKXnVNJdCF 6IHaQnQSRbLCVnPwIvPKOmYKEtla2XDVFpZLSwSgTbMGRsYBZwLSOqUEcwLEZoMIV4AbD1VKAiLXCtGW 7BEfRcJGLbWSV3JwCcWDWyIMRpze3NXKGyIELwMBK5 GNQbTEKbOXLxBZbeLXPvZGLuJAjcBJBiYNWtXY6FUbJyHOHbMgV6JLDvRWYfLTFiza1SGKEsZWFlLcX3 ZNKwCJZhNNApGHvbEQSfTZCmXLD6PCNuTMFwRA9SJgRsHNOsCuLyPYOmTNChKGDenu2PCTVkORKpGbx0 FCUbPJBsDTOiQOybXFPuTIZ8STT0BZUeBGBpHG3NMe PrAICvMyc0ZZJyPEFxGNAind6VHXApUPDwIAg7HSAkIZFvSGBmYQwnLLLeNUFbZQZhLMKwJPQuKL9NPx DcPPVrBNDlSKtcQHKaISSukw3NJBJvLYE5YBY1SHNdWEPuYHYoTViuPXFbTCJnUDN8JWCkGBGgXX4ZLm CeKRFkNEVnVXJdLIAoKLMthi6MLTUeHKJ6KdOuMEId LSNhMQXyBRohEYTqJPRiWBw6OIOhNADfEC7QAkAuKALsPMF0OAWmJRHdWSEbeb1ZYAApWIB8Mlo3RNEn PHVzXIOwJVfiJOWmOZH2GFO0TAXiRXHpTH2FBvVkCGEaONCpDBJbOPXqIWIizn1SNLRySTA1ZFGlBLQp KYXkUOHaBOajTJOkNWO4RoBuKBHqKQAwWI0GZhFtOV KqAZZ7EcDhNPOtGICqme3HMFUaWUY2VsG2ABNdAHCaHSLiODfiBPXyXHN0Yva5HEFrOMNpHK6QHzJhKK WmOIe7ItTeQORoOYPowh4DFWJtOUR0MXM4JMNrCEVcPCObWWxaSSRaCBQ5AeE1SPXjZFVeQL0GBhMwOV QrVAv9CyVgAETcLBTizm2BVABeLFL2KFW1PHArFNWo UWJuOSjpQYAiJRSeTfq8OHIkUGCmJD6IItUfTZJxHlO0RJzqWMIkLYNbwu3IDCNnCDK9EBw6SUWwCEPk PRDzNDi2riSzyXZuBMh0PF5TX8UxwjQqFIkMEf4Iy068MTC0GFLnCa7CI8tkKm5wSXPmHANHPi6PODi4 CVC6MLWtRKGdMKWgBLqwYoIqByYjZvLsXkN8BunlJz A+DRk7JVXvBFB2QBHzEKEiR3McNWS7OCLfGxI7NRbiE9YkVF7zDSLQAc6+DQpzdGFydHhyZWYNCjYxMj [id number] ID Date Data Source [id number] 09/13/2020 11:02:[address] [facility] [place] Name Value Range Interpretation Code Description Data Maria Antonia rce(s) Supporting Document(s) Bicarbonate [Moles/volume] in Serum 19 mmol/L 22-29 L [facility] Chloride [Moles/volume] in Serum or Plasma 105 mmol/L 98-107 [facility] Creatinine [Mass/volume] in Serum or Plasma 0.98 mg/dL 0.70-1.20 [facility] Glucose [Mass/volume] in Serum or Plasma 190 mg/dL 70-140 H [facility] Potassium [Moles/volume] in Serum or Plasma 3.9 mmol/L 3.4-5.1 [facility] Sodium [Moles/volume] in Serum or Plasma 137 mmol/L 136-145 [facility] Urea nitrogen [Mass/volume] in Serum or Plasma 14 mg/dL 8-23 [facility] Anion gap 3 in Serum or Plasma 13 mmol/L 8-15 [facility] Osmolality of Serum or Plasma by calculation 290 mosm/kg 275-300 [facility] Creatinine/Urea nitrogen [Mass Ratio] in Serum or Plasma 14 [facility] Calcium [Mass/volume] in Serum or Plasma 8.5 mg/dL 8.8-10.2 L [facility] Glomerular filtration rate/1.73 sq M pre dicted among non-blacks [Volume Rate/Area] in Serum or Plasma by Creatinine-based formula (MDRD) 86 mL/min/1.73m2 >60 [facility] Glomerular filtration rate/1.73 sq M pre dicted among blacks [Volume Rate/Area] in Serum or Plasma by Creatinine-based formula (MDRD) >60 [facility] ID Date Data Source [id number] 09/13/2020 11:02:32 PM [facility] Value Range Interpretation Code Description Data Maria Antonia rce(s) Supporting Document(s) Beta hydroxybutyrate [Moles/volume] in Serum or Plasma 0.22 mmol/L <0 .60 [facility] (NOTE) <0.60 Normal 0.60-1.50 May indicate the development of a problem >1.50 At risk for DKA ID Date Data Source [id number] 09/13/2020 08:56:11 PM [facility] Value Range Interpretation Code Description Data Maria Antonia rce(s) Supporting Document(s) Glucose [Mass/volume] in Capillary blood by Glucometer 141 mg/dL 70- 140 H [facility] ID Date Data Source [id number] 09/13/2020 09:06:54 PM [facility] Value Range Interpretation Code Description Data Maria Antonia rce(s) Supporting Document(s) Lactate [Moles/volume] in Serum or Plasma 5.4 mmol/l 0.5-2.2 [facility] Results called to and read back by Emir [place]Y ON [id number] AT [id number] [id number] ID Date Data Source [id number] 09/13/2020 07:26:03 PM [facility] Value Range Interpretation Code Description Data Maria Antonia rce(s) Supporting Document(s) Lactate dehydrogenase [Enzymatic activit y/volume] in Serum or Plasma by Lactate to pyruvate reaction 281 U/L 122-225 H [facility] ID Date Data Source [id number] 09/18/2020 10:23:36 AM [facility] Cmnt XXX-Imp : L HANDMicroorgani sm XXX Cult : No growth 5 days Name Value Range Interpretation Code Description Data Maria Antonia rce(s) Supporting Document(s) ID Date Data Source [id number] 09/18/2020 10:23:36 AM [facility] Cmnt XXX-Imp : R HAND 2Microorg anism XXX Cult : No growth 5 days Name Value Range Interpretation Code Description Data Maria Antonia rce(s) Supporting Document(s) ID Date Data Source [id number] 09/13/2020 04:43:44 PM [facility] Value Range Interpretation Code Description Data Maria Antonia rce(s) Supporting Document(s) pH of Venous blood 7.47 7.36-7.41 [facility] [place] [facility] Carbon dioxide [Partial pressure] in Venous blood 26 mmHg 40-45 L [facility] Oxygen [Partial pressure] in Venous blood 81 mmHg [facility] Base excess in Venous blood by calculation [facility] Carbon dioxide, total [Moles/volume] in Venous blood by calculat ion 20 mmol/L [facility] Oxygen saturation in Venous blood 97 % 60-85 H [facility] ID Date Data Source [id number] 09/13/2020 04:31:[address] [facility] [place] Name Value Range Interpretation Code Description Data Maria Antonia rce(s) Supporting Document(s) Glucose [Mass/volume] in Capillary blood by Glucometer 439 mg/dL 70- 140 H [facility] ID Date Data Source [id number] 09/13/2020 04:18:[address] [facility] [place] Name Value Range Interpretation Code Description Data Maria Antonia rce(s) Supporting Document(s) Lactate [Moles/volume] in Serum or Plasma 4.9 mmol/l 0.5-2.2 [facility] Results called to and read back by SUNDAR GUTIERRES RN [id number] ID Date Data Source [id number] 09/13/2020 03:40:[address] [facility] [place] Name Value Range Interpretation Code Description Data Maria Antonia rce(s) Supporting Document(s) Creatinine [Mass/volume] in Urine 39.0 mg/dl [facility] ID Date Data Source [id number] 09/13/2020 03:45:02 PM [facility] Value Range Interpretation Code Description Data Maria Antonia rce(s) Supporting Document(s) Sodium [Moles/volume] in Urine 56 mmol/L [facility] Confirmed ID Date Data Source [id number] 09/13/2020 02:19:[address] [facility] [place] US DOPPLER ABDOMEN PELVIS ORGANS LIMITED [id number] RESULTInterpreted by:Gordon Haro, MDPROCEDURE INFORMATION: Exam: US Duplex Artery or Vein of the Abdominal and/or Reproductive Organs, Limited Exam date and time: 09/13/2020 1:00 PM Age: 65 years old Clinical indication: Cerebral infarction, unspecified; Screening exam; Eval for pvt; Additional info: Ruq rule out protal vein thrombosis TECHNIQUE: Imaging protocol: Real-time duplex ultrasound scan of the arterial or venous flow of the abdomen and/or reproductive organs, with color Doppler flow and spectral waveform analysis with image documentation. Exam focused on the region of clinical interest. Duplex images were received to evaluate vascular conditions. COMPARISON: CT ABDOMEN PELVIS WITH CONTRAST [id number] 09/11/2020 5:16 PM FINDINGS: Tubes, catheters and devices: What was described on CT as a spleno renal shunt could not be identified Hepatic veins: The hepatic veins and inferior vena cava appear normal Spleen: The splenic vein can be seen at the spleen and appears patent with normal directional flow but more centrally cannot be followed. Portal venous: The CT examination of 09/11/2020 was reviewed and based on the numerous dilated tortuous varicose veins seen on that study it is understandable as to why it was difficult to a identify the right and left portal veins. Normal directional flow was seen in the main portal vein which has a somewhat scalloped appearance. The vessel seen around the portal vein are probably related to the numerous varicose veins seen on CT. Other findings: The study was very limited as the patient was described constantly moving and not able to hold breath. IMPRESSION: 1. The study was very limited as the patient was described constantly moving and not able to hold breath. 2. The CT examination of 09/11/2020 was reviewed and based on the numerous dilated tortuous varicose veins seen on that study it is understandable as to why it was difficult to a identify the right and left portal veins. 3. Normal directional flow was seen in the main portal vein which has a somewhat scalloped appearance. 4. The splenic vein can be seen at the spleen and appears patent with normal directional flow but more centrally cannot be followed. 5. The vessel seen around the portal vein are probably related to the numerous varicose veins seen on CT. THIS DOCUMENT HAS BEEN ELECTRONICALLY SIGNED BY GORDON HARO MDThis document has been electronically signed by Gordon Haro MD on 09/13/2020 2:19 PM Name Value Range Interpretation Code Description Data Maria Antonia rce(s) Supporting Document(s) ID Date Data Source [id number] 09/13/2020 02:51:[address] [facility] [place] Name Value Range Interpretation Code Description Data Maria Antonia rce(s) Supporting Document(s) Beta hydroxybutyrate [Moles/volume] in Serum or Plasma 0.17 mmol/L <0 .60 [facility] (NOTE) <0.60 Normal 0.60-1.50 May indicate the development of a problem >1.50 At risk for DKA ID Date Data Source [id number] 09/13/2020 02:51:51 PM EDT [facility] Name Value Range Interpretation Code Description Data Maria Antonia rce(s) Supporting Document(s) Albumin [Mass/volume] in Serum or Plasma by Bromocresol green (BCG) dye binding method 2.4 g/dL 3.5-5.2 [facility] Bil[facility].total [Mass/volume] in Serum or Plasma 1.1 mg/dL <1.2 [facility] Calcium [Mass/volume] in Serum or Plasma 8.7 mg/dL 8.8-10.2 [facility] Chloride [Moles/volume] in Serum or Plasma 99 mmol/L 98-107 [facility] Creatinine [Mass/volume] in Serum or Plasma 1.09 mg/dL 0.70-1.20 [facility] Glucose [Mass/volume] in Serum or Plasma 586 mg/dL 70-140 [facility] Results called to and read back by [id number] TO 09E KRISTIN CHAN AT 1451 Alkaline phosphatase [Enzymatic activity/volume] in Serum or Plasma 111 U/L 40-129 [facility] Potassium [Moles/volume] in Serum or Plasma 4.5 mmol/L 3.4-5.1 [facility] Protein [Mass/volume] in Serum or Plasma 5.9 g/dL 6.4-8.3 [facility] Sodium [Moles/volume] in Serum or Plasma 127 mmol/L 136-145 [facility] Aspartate aminotransferase [Enzymatic activity/volume] in Serum or Plasma 26 U/L <40 [facility] Urea nitrogen [Mass/volume] in Serum or Plasma 14 mg/dL 8-23 [facility] Osmolality of Serum or Plasma by calculation 292 mosm/kg 275-300 [facility] Creatinine/Urea nitrogen [Mass Ratio] in Serum or Plasma 13 [facility] Bicarbonate [Moles/volume] in Serum 16 mmol/L 22-29 L [facility] Alanine aminotransferase [Enzymatic activity/volume] in Seru m or Plasma 15 U/L <41 [facility] Anion gap 3 in Serum or Plasma 13 mmol/L 8-15 [facility] Glomerular filtration rate/1.73 sq M pre dicted among non-blacks [Volume Rate/Area] in Serum or Plasma by Creatinine-based formula (MDRD) 70 mL/min/1.73m2 >60 [facility] Glomerular filtration rate/1.73 sq M pre dicted among blacks [Volume Rate/Area] in Serum or Plasma by Creatinine-based formula (MDRD) 82 mL/min/1.73m2 >60 [facility] ID Date Data Source [id number] 09/13/2020 01:50:[address] [facility] [place] Name Value Range Interpretation Code Description Data Maria Antonia rce(s) Supporting Document(s) Glucose [Mass/volume] in Capillary blood by Glucometer 567 mg/dL 70- 140 [facility] ID Date Data Source [id number] 09/13/2020 11:06:54 AM [facility] Value Range Interpretation Code Description Data Maria Antonia rce(s) Supporting Document(s) Glucose [Mass/volume] in Capillary blood by Glucometer 397 mg/dL 70- 140 [facility] ID Date Data Source [id number] 09/13/2020 11:25:32 AM [facility] Value Range Interpretation Code Description Data Maria Antonia rce(s) Supporting Document(s) Leukocytes [#/volume] in Blood by Automated count 6.7 10*3/uL 4-10 [facility] Erythrocytes [#/volume] in Blood by Automated count 3.13 10*6/uL 4.6- 6.1 [facility] Hemoglobin [Mass/volume] in Blood 8.7 g/dL 13.5-18 [facility] Hematocrit [Volume Fraction] of Blood by Automated count 27.7 % 4 1-53 [facility] Erythrocyte mean corpuscular volume [Entitic volume] by Auto mated count 88.5 fL 80-96 [facility] Erythrocyte mean corpuscular hemoglobin [Entitic mass] by Automated count 27.8 pg 27-33 [facility] Erythrocyte mean corpuscular hemoglobin concentration [Mass/volume] by Automated count 31.5 g/dL 32.0-36.0 [facility] E[facility]th[facility] distribution width [Ratio] by Automated count 20.5 % 11.5-14.5 [facility] Platelets [#/volume] in Blood by Automated count 127 10*3/uL 150-400 [facility] Differential cell count method - Blood [facility] Neutrophils/100 leukocytes in Blood by Automated count 63 % [facility] Lymphocytes/100 leukocytes in Blood by Automated count 20 % [facility] Monocytes/100 leukocytes in Blood by Automated count 16 % [facility] Eosinophils/100 leukocytes in Blood by Automated count 1 % [facility] Basophils/100 leukocytes in Blood by Automated count 0 % [facility] Neutrophils [#/volume] in Blood by Automated count 4.24 10*3/uL 1.8-7 .0 [facility] Lymphocytes [#/volume] in Blood by Automated count 1.31 10*3/uL 1.2-4 .0 [facility] Monocytes [#/volume] in Blood by Automated count 1.04 10*3/uL 0-0.8 H [facility] Eosinophils [#/volume] in Blood by Automated count 0.10 10*3/uL 0-0.5 [facility] Basophils [#/volume] in Blood by Automated count 0.03 10*3/uL 0-0.2 [facility] Nucleated erythrocytes/100 leukocytes [Ratio] in Blood by Automated count 0 /100{WBCs} 0-0 [facility] ID Date Data Source [id number] 09/13/2020 10:19:21 AM T [facility] Name Value Range Interpretation Code Description Data Maria Antonia rce(s) Supporting Document(s) [facility] [id number]IAaRIaMeFcIxBaPk lbm [file] [id number]PZs= ID Date Data Source [id number] 09/13/2020 09:11:40 AM EDT [facility] Name Value Range Interpretation Code Description Data Maria Antonia rce(s) Supporting Document(s) [facility] [id number]K5iRCoI3EhvVUhp7phX4JqZ0PkWKFmAECHNF3HaMOa jb2 [file] [id number]++++uL79x++/xYf7d43/+E37z7/7u3t7c [id number]/ef/nyakxd7050i5VvGCRH6gm9f5cPyQrqE//wD//z7v3KB561+/btu9zsu/4s7Diii/ es2tkbqIm/3ZeUif9+eqO9Ad3p/O7tl+/f3n1+Z+S7x526v/erX73/7OP7z/5KhrpP4eM12eaxxz654S kwomy1d17+xxcff/4Hdc684tx4p/7w/pXSJ9+//fLL rz/7l7+RQEtDfPn+Vx/f3t0Z+eKVv1+9+/zpZg787by8J/7/YmHNvl0Fp/r6q2+/ef/ZF7/64rO3b+8k Pn/7+PY/3n3/eu0vv/z4Cb32tN/j+ZtT3M9/8+HrL7/+6p/ff/61191/47ab1N+9myOj4t/2zz+/zU+b tzz9eWm0/Rvlz3ojsoZrz3gca/viy3e//NC891kiIn /3Q5/95c///oe//itXu2e1G/732/d/+OMff/jrX3/84Y//+Pb5D3/+w49/fPvX/9bWv/7921/+/DZ/0f cthEOhH0s70AQ1n5/0PfDRM7TzeAe8762+5D122P9o7Tx71W01J8jnM/t7cLl+/f8C9L+1B9z/dP3TBO pxfCrp/j6NjL6431V+tZ93rhJrIdlat5f4q0t+bi0P jhCo4DKXs//xZZ/bWJ++fn207w++/s37t19//S8/sbAfLVTPlIV/eT+Yju0S97WaYT3f0dre1PW+tEuB v0TvvgjK9m/++T//6e2vP/znjz9J/MGsj0YFXomHv+CGwa0fu9+db1co4hyxM3/+zx//+r/+S+Yj+WPM nyYfeT/YXD9P/WC//fDt27/9z1fe//CXP/88eT//7m eRWwXA0ckYv/jtx9/zM++bS0mmzvCm9F3I1OIdt8L3Koq55+nkJadwBv4XkJAfM6xph70mkEbGWh504C /8+B//td08H+5yY7094+GT++ccR8K2rin/+6//+vc/u/t8iN/28EjqzYC2M/SzH/7n73/4jz/88OefPf 46dbnRNlRtX457v4/+9Om7a/zshlOcL//y+0+VRvR1 WuXy8RW//vj7/+vPf/x4XpFo1j/a0at1c1o1xjnf+x//+apU//bph6/fPvv+JY84m1E507kg22jb/s8f 39rbX/68ilNuh346HIXb00wr1+Xb+5fwIjTvP//4atp3z/ZUbq1XK8/4/P2HV/bsPnXy/pN+99lnX3/3 5yqpObhWe4mFhuvt/qVxRGN2BjMzMQV8hqKinXgaol HdTokWMTqbUGRpYaa5BN0VySHkJBXoP7V0HGPkul7hYJWuPGMokBLsOvFxYBSQVE8EjYSqXI0YRUb9OQ CcUOKsNzYfBBCseiC9BIYzDHWhAMJwL5GjdoLkeFThWYDnMd2+ON9vx6TtVlBzJYPwFmg0WC7NfHKvMR 0YvGKdrR0kunWuE202klRgSTWmQrtxg7TeVVehROUD YB1DRIW2ORW1RJEwMm3+AW4wm9ZlAnQkHNLeKeq9PP5KpMFkl8AnYF8UP5OqCGSaSDFJNCO1s6GvHHIk chnsritcS5NpUVM0tM1gDNH0MEZlOEydZBVlZIfbPsR5KZPfRSklEMEbPGElAZMeJRMdUSx1lWCiDT8M T8ZaSZCbYSSHXSLsqlMnKz0eRT4DYQ9BQHuyWKJKIn CxTZo5FvrpNUAlC6CrupBavQGyJDTGXAezClizNTXcuZ5ruZrnT6UmQNO3w7FeGT4TL0HpESJcHHECPX B2t5FoKPDnirwnspjdKgTnKTEqTRCkIOKjBH6Sxh6ocSOpbxUeTNPMNOlaWthuKC4jcIvzvkryH6GaoB VzKSA+DiTxRD0rmt6+VqIaTTVrRlc4SSTvEDhoIMEq OZEaTBXbF5oeXILgAoJdDXFrZzRpYX1Lu7MonLOkCt4csjMmNlrYaCFdGjwxPXDnJQRzUECjOaMFZURg UQHpOYLhGZR0RPLcMWNeRLnmWNBfFJJ8CTN5IKNzWYLrWW3hEaVmANMdAfB6CFMyJGKdIMBoktGHHTIl TSM5WYd9SuVwURQzMKKtBYlbMTRkQRWdWQTfYYI1IB G2ULQvJtSbYIClWOGtRRZrEEPqVHAvvnCQQGZbHFZrOTF1DHAdHMIaAORpXBlgHUAzAGQkKBrpVUTqWP MnXF7jGpCxLXNwPYXyTZklMHAqJJCjwqMOOBVxBJMiUSNcIBIwFZCnPKMiJKysTKGvQZEoVFAeEWBvAM RbTH7kJqIlWARsGBQ6MWDqRJZoCOTgmtLBMNCrNJAv QYc3ZNVySRUjZEUgLUwnQDEgAUHpFXL9IRCvOTTiAU2nRnPpFYWxCKZ7MwOvAKJxIANbwuDKXOBjFXCd ATK3FqLeZKRcXMXiPQgeBCUlIQUzHBzgLTCsARYlFE1uClWtNHKoGFLsBMulDQFiJBRkczFPHEKxLGUl VSVkEdQhXIMrXMShXCbcGNNfRER5FaN9BTYgZBNdGL 3jMrAeXPWyHZT6DZhjMPYvLHCcbvRJJRStLKJhKIbvCIEaSHEeCEMjRUviUWDbPPUnGCG6RJGaUZKxWJ 7jOtDgELLqVBMjZZVlExM3SbQwLoVFnKOxyRgouwd5BZfxN4v4KQNkPVrsTM1dcgEaQAGuRkepRj0siS V3ZPBqUvpKQc2Rr3LbnmS2igFbMqP7HRgeXyZwIJ7R ID Date Data Source [id number] 09/13/2020 08:48:49 AM EDT [facility] Name Value Range Interpretation Code Description Data Maria Antonia e(s) Supporting Document(s) Bicarbonate [Moles/volume] in Serum 16 mmol/L 22-29 L [facility] Chloride [Moles/volume] in Serum or Plasma 99 mmol/L 98-107 [facility] Creatinine [Mass/volume] in Serum or Plasma 0.81 mg/dL 0.70-1.20 [facility] Glucose [Mass/volume] in Serum or Plasma 384 mg/dL 70-140 H [facility] Potassium [Moles/volume] in Serum or Plasma 4.3 mmol/L 3.4-5.1 [facility] Sodium [Moles/volume] in Serum or Plasma 128 mmol/L 136-145 L [facility] Urea nitrogen [Mass/volume] in Serum or Plasma 14 mg/dL 8-23 [facility] Anion gap 3 in Serum or Plasma 12 mmol/L 8-15 [facility] Osmolality of Serum or Plasma by calculation 281 mosm/kg 275-300 [facility] Creatinine/Urea nitrogen [Mass Ratio] in Serum or Plasma 17 [facility] Calcium [Mass/volume] in Serum or Plasma 8.8 mg/dL 8.8-10.2 [facility] Glomerular filtration rate/1.73 sq M pre dicted among non-blacks [Volume Rate/Area] in Serum or Plasma by Creatinine-based formula (MDRD) >6 0 [facility] Glomerular filtration rate/1.73 sq M pre dicted among blacks [Volume Rate/Area] in Serum or Plasma by Creatinine-based formula (MDRD) >60 [facility] ID Date Data Source [id number] 09/13/2020 07:43:49 AM [facility] Value Range Interpretation Code Description Data Maria Antonia rce(s) Supporting Document(s) Glucose [Mass/volume] in Capillary blood by Glucometer 375 mg/dL 70- 140 H [facility] ID Date Data Source [id number] 09/13/2020 05:39:47 AM [facility] Value Range Interpretation Code Description Data Maria Antonia rce(s) Supporting Document(s) Ammonia [Moles/volume] in Plasma 70 umol/L 16-60 H [facility] ID Date Data Source [id number] 09/13/2020 05:38:08 AM [facility] Value Range Interpretation Code Description Data Maria Antonia rce(s) Supporting Document(s) Bicarbonate [Moles/volume] in Serum 17 mmol/L 22-29 L [facility] Chloride [Moles/volume] in Serum or Plasma 101 mmol/L 98-107 [facility] Creatinine [Mass/volume] in Serum or Plasma 0.86 mg/dL 0.70-1.20 [facility] Glucose [Mass/volume] in Serum or Plasma 364 mg/dL 70-140 H [facility] Potassium [Moles/volume] in Serum or Plasma 4.3 mmol/L 3.4-5.1 [facility] Sodium [Moles/volume] in Serum or Plasma 129 mmol/L 136-145 L [facility] Urea nitrogen [Mass/volume] in Serum or Plasma 14 mg/dL 8-23 [facility] Anion gap 3 in Serum or Plasma 11 mmol/L 8-15 [facility] Osmolality of Serum or Plasma by calculation 284 mosm/kg 275-300 [facility] Creatinine/Urea nitrogen [Mass Ratio] in Serum or Plasma 16 [facility] Calcium [Mass/volume] in Serum or Plasma 8.6 mg/dL 8.8-10.2 L [facility] Glomerular filtration rate/1.73 sq M pre dicted among non-blacks [Volume Rate/Area] in Serum or Plasma by Creatinine-based formula (MDRD) >6 0 [facility] Glomerular filtration rate/1.73 sq M pre dicted among blacks [Volume Rate/Area] in Serum or Plasma by Creatinine-based formula (MDRD) >60 [facility] ID Date Data Source [id number] 09/13/2020 05:01:24 AM T [facility] Name Value Range Interpretation Code Description Data Maria Antonia rce(s) Supporting Document(s) Glucose [Mass/volume] in Capillary blood by Glucometer 341 mg/dL 70- 140 H [facility] ID Date Data Source [id number] [facility]/12[facility]2020 10[facility]29[facility] [id number] ULTInterpreted by:Rosales Serrano MDINDICATION: Left hemiparesis, aphasiaTECHNIQUE: Multiplanar and multisequence MR images of the brain were obtained without intravenous contrast.Comparison: CT head 09/12/2020FINDINGS: No areas of restricted diffusion to suggest acute infarct. A focus of susceptibility on the susceptibility weighted images in the left frontal lobe corresponds to decreased T1 and T2 signal and is consistent with hemosiderin deposition. T2 FLAIR hyperintensity in the left occipital lobe subcortical white matter and left pos terior parietal lobe periventricular white matter may represent remote infarctions. Additionally, a thin periventricular band of T2 and FLAIR hyperintensity is likely secondary to chronic small vessel microangiopathic ischemic change. There is no evidence of acute intraparenchymal hemorrhage. No extra axial fluid collections are seen. There are no masses, mass effect, or midline shift. Prominence of the ventricular system, fissures and sulci is commensurate with cerebral volume loss. The pituitary gland, and cerebellar tonsils appear grossly unremarkable. There is mild atrophy of the corpus callosum. Flow voids of the major intracranial arterial vessels are identified. There is partial opacification of the right mastoid air cells. Left mastoid air cells are incompletely pneumatized but clear. The imaged portions of the paranasal sinuses, and orbits are unremarkable. IMPRESSION:1. No acute infarction or intracranial hemorrhage.2. T2 FLAIR hyperintensities in the left occipital and left parietal lobes may represent remote infarctionThis document has been electronically signed by Guy Kilpatrick MD on 09/12/2020 10:27 PM Name Value Range Interpretation Code Description Data Maria Antonia rce(s) Supporting Document(s) ID Date Data Source [id number] 09/12/2020 06:25:40 PM EDT [facility] CT HEAD WITHOUT CONTRAST [id number] LTInterpreted by:BRANDON HughesPROCEDURE INFORMATION: Exam: CT Head Without Contrast Exam date and time: 09/12/2020 5:36 PM Age: 65 years old Clinical indication: Cerebral infarction, unspecified; Condition or disease; Other: Na; Additional info: Post tpa TECHNIQUE: Imaging protocol: Computed tomography of the head without contrast. Radiation optimization: All CT scans at this facility use at least one of these dose optimization techniques: automated exposure control; mA and/or kV adjustment per patient size (includes targeted exams where dose is matched to clinical indication); or iterative reconstruction. COMPARISON: CT HEAD WITHOUT CONTRAST [id number] 09/12/2020 1:30 AM FINDINGS: Brain: Normal cortical pattern for patient's age. No intracranial hemorrhage or mass effect. Mild white matter changes are stable. Cerebral ventricles: No ventriculomegaly. Paranasal sinuses: Normal visualized sinuses. Mastoid air cells: Visualized mastoid air cells are well aerated. Bones/joints: Unremarkable. No acute fracture. Soft tissues: Unremarkable. IMPRESSION: No acute intracranial hemorrhage. No interval change.THIS DOCUMENT HAS BEEN ELECTRONICALLY SIGNED BY ALIYA WHALEN MDThis document has been electronically signed by BRANDON Hughes on 09/12/2020 6:25 PM Name Value Range Interpretation Code Description Data Maria Antonia rce(s) Supporting Document(s) ID Date Data Source [id number] 09/12/2020 06:58:34 PM EDT [facility] Name Value Range Interpretation Code Description Data Maria Antonia rce(s) Supporting Document(s) Glucose [Mass/volume] in Capillary blood by Glucometer 396 mg/dL 70- 140 [facility] ID Date Data Source [id number] 09/12/2020 07:58:01 AM EDT [facility] Name Value Range Interpretation Code Description Data Maria Antonia rce(s) Supporting Document(s) Bicarbonate [Moles/volume] in Serum 19 mmol/L 22-29 L [facility] Chloride [Moles/volume] in Serum or Plasma 108 mmol/L 98-107 H [facility] Creatinine [Mass/volume] in Serum or Plasma 0.77 mg/dL 0.70-1.20 [facility] Glucose [Mass/volume] in Serum or Plasma 161 mg/dL 70-140 H [facility] Potassium [Moles/volume] in Serum or Plasma 4.3 mmol/L 3.4-5.1 [facility] Sodium [Moles/volume] in Serum or Plasma 135 mmol/L 136-145 L [facility] Urea nitrogen [Mass/volume] in Serum or Plasma 13 mg/dL 8-23 [facility] Anion gap 3 in Serum or Plasma 9 mmol/L 8-15 [facility] Osmolality of Serum or Plasma by calculation 283 mosm/kg 275-300 [facility] Creatinine/Urea nitrogen [Mass Ratio] in Serum or Plasma 16 [facility] Calcium [Mass/volume] in Serum or Plasma 8.6 mg/dL 8.8-10.2 L [facility] QA FLAGS AND/OR RANGES MODIFIED BY DEMOG RAPHIC UPDATE ON 09/12 AT 1750 Glomerular filtration rate/1.73 sq M pre dicted among non-blacks [Volume Rate/Area] in Serum or Plasma by Creatinine-based formula (MDRD) >6 0 [facility] Glomerular filtration rate/1.73 sq M pre dicted among blacks [Volume Rate/Area] in Serum or Plasma by Creatinine-based formula (MDRD) >60 [facility] ID Date Data Source [id number] 09/11/2020 07:25:08 PM EDT [facility] Name Value Range Interpretation Code Description Data Maria Antonia rce(s) Supporting Document(s) Bicarbonate [Moles/volume] in Serum 20 mmol/L 22-29 L [facility] Chloride [Moles/volume] in Serum or Plasma 101 mmol/L 98-107 [facility] Creatinine [Mass/volume] in Serum or Plasma 0.82 mg/dL 0.70-1.20 [facility] Glucose [Mass/volume] in Serum or Plasma 114 mg/dL 70-140 [facility] Potassium [Moles/volume] in Serum or Plasma 4.1 mmol/L 3.4-5.1 [facility] Sodium [Moles/volume] in Serum or Plasma 128 mmol/L 136-145 [facility] Urea nitrogen [Mass/volume] in Serum or Plasma 14 mg/dL 8-23 [facility] Anion gap 3 in Serum or Plasma 7 mmol/L 8-15 [facility] Osmolality of Serum or Plasma by calculation 267 mosm/kg 275-300 [facility] Creatinine/Urea nitrogen [Mass Ratio] in Serum or Plasma 17 [facility] Calcium [Mass/volume] in Serum or Plasma 8.1 mg/dL 8.8-10.2 [facility] QA FLAGS AND/OR RANGES MODIFIED BY DEMOG RAPHIC UPDATE ON 09/12 AT 1750 Glomerular filtration rate/1.73 sq M pre dicted among non-blacks [Volume Rate/Area] in Serum or Plasma by Creatinine-based formula (MDRD) >6 0 [facility] Glomerular filtration rate/1.73 sq M pre dicted among blacks [Volume Rate/Area] in Serum or Plasma by Creatinine-based formula (MDRD) >60 [facility] ID Date Data Source [id number] 06/05/2020 07:52:00 AM EDT [facility] Name Value Range Interpretation Code Description Data Maria Antonia rce(s) Supporting Document(s) COVID-19 RT-PCR [facility] Not Detected [facility] A not detected (negative) test result fo r this test means that SARS-CoV-2 RNA was not present in the specimen above the limit ofdetection. Laboratory test results should always be considered in thecontext of clinical observations and epidemiological data in making afinal diagnosis and patient management decisions. Results will bereported to government agencies as required.This test has received Emergency Use Authorization (EUA). We will continue to follow federal and state requirements for COVID-19 reporting. This test has been authorized only for the detection of RNAfrom SARS-CoV-2 virus and diagnosis of SARS-CoV-2 virus infection, notfor any other viruses or pathogens. This test is only authorized for the duration of the declaration that circumstances exist justifying the authorization of the emergency use of in vitro diagnostic tests for detection of SARS-CoV-2 virus and/or diagnosis of SARS-CoV-2 virusinfection under section 564(b)(1) of the Act, 21 U.S.C. section 360bbb-3(b)(1), unless the authorization is terminated or revoked sooner. We will continue to follow federal and state requirements for both notification of results and any confirmatory testing that is required by another agency. This test was developed and its performance characteristics determined by [facility] and verified at [facility]. It has not been cleared or approved by the U.S. Food and Drug Administration for diagnostic use. This test has been authorized by FDA under an EUA for use by authorized laboratories. Results should be used in conjunction with clinical findings, and should not form the sole basis for a diagnosis or treatment decision. Methods: SARS-CoV-2 Multiplex RT-PCR Assay ID Date Data Source [id number] 06/03/2020 04:00:00 PM EDT [facility] Name Value Range Interpretation Code Description Data Maria Antonia rce(s) Supporting Document(s) SARS-CoV-2 (COVID-19) N gene [Presence] in Respiratory specimen by ARAM with probe detection NEGATIVE [facility] and reported by [facility]. ID Date Data Source [id number] 06/03/2020 12:00:00 AM EDT [facility] Name Value Range Interpretation Code Description Data Maria Antonia rce(s) Supporting Document(s) Carestart Rapid COVID Antigen Test Negative [facility] lab [facility] ID Date Data Source [id number] 05/03/2020 04:58:00 PM EST [facility] Name Value Range Interpretation Code Description Data Maria Antonia rce(s) Supporting Document(s) SARS coronavirus 2 RNA [Presence] in Res piratory specimen by ARAM with probe detection NEGATIVE [facility] This lab was ordered by [facility] a nd reported by [facility]. ID Date Data Source [id number] 04/01/2020 06:29:00 PM EST [facility] Name Value Range Interpretation Code Description Data Maria Antonia rce(s) Supporting Document(s) SARS coronavirus 2 RNA [Presence] in Res piratory specimen by ARAM with probe detection NEGATIVE [facility] This lab was ordered by [facility] a nd reported by [facility]. ID Date Data Source [id number] 03/13/2020 12:49:42 PM EST [facility] Name Value Range Interpretation Code Description Data Maria Antonia rce(s) Supporting Document(s) Discharge Summary [facility] DCNRRm0qHlJHKdEp17/FNYykJXIxe4IrGJfwUNu7EEkeLBTeC9VuNML2lT7oXTJ4KKoEJsQmDuLiBLN9 lbm [file] AgICAgICAgICAgICAgICAgICAgICAgICAgICAgICAgICAgICAgICAgICAgICAgICAgICAgICAgICAgIC AgICAgICAgICAgICAgICAgICAgICAgICAgICAgICAg ZK7UKUPsTSNsIWTyPECtFKWeVDQpEPAaTDYnGUFuLEJnXQFrAWDnHYBlWMPoKEQtZZGkQJQwQJIqKMRq KGHcLVWyUQPtSKGqRYGgHWSgBCRmXNKuNPRcMZPhYDYhFPOuGVHjPJRxJZ2RSWObDGDeDPEjKFYwRMVj ICAgICAgICAgICAgICAgICAgICAgICAgICAgICAgIC SqBDNiJHRrPGKxBRTjVDJyQUMbXGBmOSDvOEXsVTAyWZLpTDAbVZFsXRXpHLOeWABhDATvIY9NXLJtXA AgICAgICAgICAgICAgICAgICAgICAgICAgICAgICAgICAgICAgICAgICAgICAgICAgICAgICAgICAgIC AgICAgICAgICAgICAgICAgICAgICAgICAgICAgICAg RWEpLI8KGLToCHHdVMGbQHRmQTOkIQKhXCDuRRFhHHMbAGEuBMHjYPClKWIkUZGfCMGkBLRtUCLvNBBa HFEvGVXeDZIwCMOdTPWnSIGtZYWeBQAjMMDoXDWgIRVwXKQbQBCxQXPmENYnMN8RHCZyBCKgSMLhFWZq ICAgICAgICAgICAgICAgICAgICAgICAgICAgICAgIC FjKTKzESEoIOFaGNXmANIiYEDfUPZrZJUeEOHoIFElRWLgSTIzTNUfEFKmIISvOYXoRBGtKOIiMF6BWX AgICAgICAgICAgICAgICAgICAgICAgICAgICAgICAgICAgICAgICAgICAgICAgICAgICAgICAgICAgIC AgICAgICAgICAgICAgICAgICAgICAgICAgICAgICAg WVFwGIQyYL1QGEVyHCRhGGOxJNVhPWNwJEMqWLHsTPBsFLWeGHEePHLfQMMsWKCsABMxRCKjTDNoGFCe TMHkTKDdTDZgJOPcYZOpDCRsGPNtCLAoXMAxQKXwNTEaIMAmIXBrFANyNCMtRPNtCE3LGPYeGVDcCSJi ICAgICAgICAgICAgICAgICAgICAgICAgICAgICAgIC AgICAgICAgICAgICAgICAgICAgICAgICAgICAgICAgICAgICAgICAgICAgICAgICAgICAgICAgICAgIA 0KICAgICAgICAgICAgICAgICAgICAgICAgICAgICAgICAgICAgICAgICAgICAgICAgICAgICAgICAgIC AgICAgICAgICAgICAgICAgICAgICAgICAgICAgICAg CXRnIAQsFUPlLX3UZX64rUAte8Q0OUXfHY9oyfa/Ni9HYKbxeaKhzGFeBF1QKaTyGW7nvv6NKjOcUB1k oa7XRIdEFkLsX8A7aJExSNZxPUNXByCiS31tBMaiEe77SEkrPSYkVsJtYOo6Zt3MDmMbI1cgTLMkVeW2 NWLfQsD4UBRnHkY7TUDjVqYeJZQiEECzKZBvHHUQBH Y6ORFcEuQoAJpxLZ2Sp5XktVA2FPz+Fo5IYK4et8HrQGrdXSIzVF7xzn1KWYyDEaRcB8CkraO4EAP4RV AnIz7BBTKoJUNqyHKtJYLfPXYBQuGqR1WlcU01KUNJQl1+BEkwheTpUgmXGhJ8FFLrm0QpQBl6CB1HDW XpTIo1qXZfKYlcZ9pnylqaTNE9eJ2wiczvQsmqWxTa s9gbREXdXuPuBZhlCR9gEPYqQP85MeAuLgHbKIP6QTHgDI4vNXyzYK9MEXJ9RGdmUYXmNTKnW8cKHmCm EDBfVdViiHnsAJ4UIkBpM9UqbwMwiMTkTUSwZUBQAn8+XIzylfHaVmeYCfMhFINgb7AyFYa8KC6YSMMq BBqcMP9TDJBmaM0zOFdiZS7WYhTfHtZtYCMVHjPxU2 0jtKIfBZi0P5NpGlHqLYHiWzzcFYDtAWunUoQxVRWlWlJpOYjmLJ2+ID4+CHwhHW0DDPdummZiBMZuYa 1XXZPkNRDjRP1sSLTzSJSfT0W3hZubKBUYNwEvF4wzlmolMZ5dGRSpM921rIndzdQmZWY8VPEfQx1IZC OaTDU7GPPoyWCpPrdvDLMLLEqmXX0WoLDgHOS1fR8b GJdfGONcALVzW2jUPcHhjJfoNP27kYeyewYmaXLhYBf+Sh3JGO1us9EbNKb0umVhQBboSKZiRIkeTFDq QZRyZHHlPON0IBV3YSOGFmJpAFIdRXFdVCxkTVRkTLQvtm7ENUJmQOShLSAfOiFjAEImCBTdAYrkLRTr WZSnRwe1UCVdEWInCT6LLrRaUETsTVTbAZwnTPCiFK Ehxu4IOHImVSMbJqO6BaIzTATyWFKmDXsqTFBoYNOwNgz8OHOuRHLvQD8IMeFrZLXhDGviDntxHPCaMI Owcc9GSOMiCUYzTVQ3NaDrKGCsTNXdWGhlLPClLTThCGDwMNIfYGQxOM1PNcIqRGOiEERnAhQaYKRhPP Zilu1ZLNJbGHIvPZGuNSBoYGXgENUdZNitGLPzHUR8 VqUaJEZpQEHrAQ3ZYrEcNNPnWMt2YbjjCUQnLOKnkq4IYQLaMKLaBkf3JAWuSNSgUVJuEPaxXADoUWL1 NPJ2KIEoTYHaJI6PAfVqDNJuVYwlUpKiWUPyRGPvjm4LFCVeEAKvGWNhFkYzDZBqFVNcVRewBLXeKZGo LlKbNSBePTHwSU6TMpWzUFUhSbH7XSQaKCCePAKxfk 1LBTVtRYCkUFK1VtLmQNSgIKFrTKkyOONfRYIrCOC0RIJfLAMcNM8GTjNbECNzCjT6DVWqHMPdORKspm 5ICQXtFVMuIcwqIBHnRLFnQUGzONuwUXGdXNTzBLIqEZEpJMDfEG7JOcZiZIEgLtViOMWyNVXzWMKlda 4VSIImQIHvPMV1HFMeHIMuNPJzZCfoJQZqIIM4Vsp6 WUZeCOThJX8WJnZnRAAeDpZ3SaoeDEBbGLMsrr9KCDTqNAXkGAOmUKSaRSQiIFUmZWxfLYIjKWM9KkLu JIVoWEIoLI0IRiCsDKNqDyN0BvFaCSNwMZRlhf5FWGWhMUCaHSE3RORaCYKaUHXjBMatIWUqMNWiUKq8 GBVuFVCcXE9DZeGmXCLbQuRvAThjBNUdQJYxmd2KIZ HtPOBnYUN9MUPgYBYxDKHiKMmpITAbTGHwUMt6FSNmMYTgBM9FJiJbKHYzKaKhPEOhDCGkTYFmdn1SJE CeXDHfWwAxWSJsHYTyJMXjVWnpKHJdEYKoZUq4EYHlWQYqPF1GRiVlKLXsBxJ2FdDkYYSsKEEjhy0QkE HklXlvoa3SBKaTOc0RpFqmBSJfLBgqOw0bkVR9RKNh FJLRWb4IwlVqTKZhKRLWRDqlBYExJOT1QbFoFDDcAStzZUZdHFe3JMKdJcRnRyLwHDLrIXC8BgB3DLe0 D4I0ZQTaQZAgG1HuTgGsEDM2KZC3Q9UqClX2RnX+BF9wEYr+Hi1Ql5AmhqS4jlPcVBtiZfs4TS1GIBCV T0YNCg== ID Date Data Source [id number] 03/10/2020 12:20:35 PM [facility] Value Range Interpretation Code Description Data Maria Antonia rce(s) Supporting Document(s) Glucose [Mass/volume] in Capillary blood by Glucometer 191 mg/dL 70- 140 [facility] ID Date Data Source [id number] 03/10/2020 08:24:44 AM [facility] Value Range Interpretation Code Description Data Maria Antonia rce(s) Supporting Document(s) Glucose [Mass/volume] in Capillary blood by Glucometer 140 mg/dL 70- 140 [facility] ID Date Data Source [id number] 03/10/2020 05:13:44 AM [facility] Value Range Interpretation Code Description Data Maria Antonia rce(s) Supporting Document(s) Prothrombin time (PT) 25.7 s 12.5-14.9 [facility] INR in Platelet poor plasma by Coagulation assay 2.29 [facility] Routine intensity oral anticoagulation I NR is typically 2.0-3.0. Target INR must be clinically individualized. ID Date Data Source [id number] 03/10/2020 05:17:59 AM [facility] Value Range Interpretation Code Description Data Maria Antonia rce(s) Supporting Document(s) Bilirubin.direct [Mass/volume] in Serum or Plasma 0.4 mg/dL <0.3 [facility] ID Date Data Source [id number] 03/10/2020 05:17:59 AM [facility] Value Range Interpretation Code Description Data Maria Antonia rce(s) Supporting Document(s) Albumin [Mass/volume] in Serum or Plasma by Bromocresol green (BCG) dye binding method 1.7 g/dL 3.5-5.2 [facility] Bil[facility].total [Mass/volume] in Serum or Plasma 1.1 mg/dL <1.2 [facility] Calcium [Mass/volume] in Serum or Plasma 7.8 mg/dL 8.8-10.2 L [facility] Chloride [Moles/volume] in Serum or Plasma 104 mmol/L 98-107 [facility] Creatinine [Mass/volume] in Serum or Plasma 0.79 mg/dL 0.70-1.20 [facility] Glucose [Mass/volume] in Serum or Plasma 269 mg/dL 70-140 [facility] Alkaline phosphatase [Enzymatic activity/volume] in Serum or Plasma 76 U/L 40-129 [facility] Potassium [Moles/volume] in Serum or Plasma 4.0 mmol/L 3.4-5.1 [facility] Protein [Mass/volume] in Serum or Plasma 5.1 g/dL 6.4-8.3 L [facility] Sodium [Moles/volume] in Serum or Plasma 132 mmol/L 136-145 [facility] Aspartate aminotransferase [Enzymatic activity/volume] in Serum or Plasma 151 U/L <40 [facility] Urea nitrogen [Mass/volume] in Serum or Plasma 15 mg/dL 8-23 [facility] Osmolality of Serum or Plasma by calculation 284 mosm/kg 275-300 [facility] Creatinine/Urea nitrogen [Mass Ratio] in Serum or Plasma 19 [facility] Bicarbonate [Moles/volume] in Serum 23 mmol/L 22-29 [facility] Alanine aminotransferase [Enzymatic activity/volume] in Seru m or Plasma 262 U/L <41 [facility] Anion gap 3 in Serum or Plasma 5 mmol/L 8-15 L [facility] Glomerular filtration rate/1.73 sq M pre dicted among non-blacks [Volume Rate/Area] in Serum or Plasma by Creatinine-based formula (MDRD) >6 0 [facility] Glomerular filtration rate/1.73 sq M pre dicted among blacks [Volume Rate/Area] in Serum or Plasma by Creatinine-based formula (MDRD) >60 [facility] ID Date Data Source [id number] 03/10/2020 05:17:59 AM [facility] Value Range Interpretation Code Description Data Maria Antonia rce(s) Supporting Document(s) Creatine kinase [Enzymatic activity/volume] in Serum or Plasma 1 469 U/L 20-200 [facility] ID Date Data Source [id number] 03/09/2020 09:27:30 PM [facility] Value Range Interpretation Code Description Data Maria Antonia rce(s) Supporting Document(s) Glucose [Mass/volume] in Capillary blood by Glucometer 211 mg/dL 70- 140 [facility] ID Date Data Source [id number] 03/09/2020 06:39:34 PM [facility] Value Range Interpretation Code Description Data Maria Antonia rce(s) Supporting Document(s) Glucose [Mass/volume] in Capillary blood by Glucometer 273 mg/dL 70- 140 [facility] ID Date Data Source [id number] 03/09/2020 05:42:11 PM [facility] Value Range Interpretation Code Description Data Maria Antonia rce(s) Supporting Document(s) Glucose [Mass/volume] in Capillary blood by Glucometer 256 mg/dL 70- 140 [facility] ID Date Data Source [id number] 03/09/2020 01:15:52 PM [facility] Value Range Interpretation Code Description Data Maria Antonia rce(s) Supporting Document(s) Glucose [Mass/volume] in Capillary blood by Glucometer 236 mg/dL 70- 140 [facility] ID Date Data Source [id number] 03/09/2020 12:00:29 PM [facility] Value Range Interpretation Code Description Data Maria Antonia rce(s) Supporting Document(s) Glucose [Mass/volume] in Capillary blood by Glucometer 206 mg/dL 70- 140 [facility] ID Date Data Source [id number] 03/09/2020 08:08:29 AM [facility] Value Range Interpretation Code Description Data Maria Antonia rce(s) Supporting Document(s) Glucose [Mass/volume] in Capillary blood by Glucometer 172 mg/dL 70- 140 [facility] ID Date Data Source [id number] 03/09/2020 05:10:42 AM [facility] Value Range Interpretation Code Description Data Maria Antonia rce(s) Supporting Document(s) Leukocytes [#/volume] in Blood by Automated count 5.8 10*3/uL 4-10 [facility] Erythrocytes [#/volume] in Blood by Automated count 3.22 10*6/uL 4.6- 6.1 [facility] Hemoglobin [Mass/volume] in Blood 11.1 g/dL 13.5-18 [facility] Hematocrit [Volume Fraction] of Blood by Automated count 32.7 % 4 1-53 [facility] Erythrocyte mean corpuscular volume [Entitic volume] b y Automated count 101.6 fL 80-96 [facility] Erythrocyte mean corpuscular hemoglobin [Entitic mass] by Automated count 34.3 pg 27-33 [facility] Erythrocyte mean corpuscular hemoglobin concentration [Mass/volume] by Automated count 33.8 g/dL 32.0-36.0 [facility] Erythrocyte distribution width [Ratio] by Automated count 17.3 % 11.5-14.5 [facility] Platelets [#/volume] in Blood by Automated count 97 10*3/uL 150-400 [facility] ID Date Data Source [id number] 03/09/2020 05:22:54 AM [facility] Name Value Range Interpretation Code Description Data Maria Antonia rce(s) Supporting Document(s) Prothrombin time (PT) 26.1 s 12.5-14.9 H [facility] INR in Platelet poor plasma by Coagulation assay 2.34 [facility] Routine intensity oral anticoagulation I NR is typically 2.0-3.0. Target INR must be clinically individualized. ID Date Data Source [id number] 03/09/2020 05:34:32 AM [facility] Value Range Interpretation Code Description Data Maria Antonia rce(s) Supporting Document(s) Bilirubin.direct [Mass/volume] in Serum or Plasma 0.5 mg/dL <0.3 [facility] ID Date Data Source [id number] 03/09/2020 05:34:32 AM [facility] Value Range Interpretation Code Description Data Maria Antonia rce(s) Supporting Document(s) Albumin [Mass/volume] in Serum or Plasma by Bromocresol green (BCG) dye binding method 1.9 g/dL 3.5-5.2 [facility] Bilirubin.total [Mass/volume] in Serum or Plasma 1.6 mg/dL <1.2 [facility] Calcium [Mass/volume] in Serum or Plasma 7.8 mg/dL 8.8-10.2 [facility] Chloride [Moles/volume] in Serum or Plasma 107 mmol/L 98-107 [facility] Creatinine [Mass/volume] in Serum or Plasma 0.82 mg/dL 0.70-1.20 [facility] Glucose [Mass/volume] in Serum or Plasma 228 mg/dL 70-140 [facility] Alkaline phosphatase [Enzymatic activity/volume] in Serum or Plasma 72 U/L 40-129 [facility] Potassium [Moles/volume] in Serum or Plasma 3.7 mmol/L 3.4-5.1 [facility] Protein [Mass/volume] in Serum or Plasma 5.3 g/dL 6.4-8.3 L [facility] Sodium [Moles/volume] in Serum or Plasma 132 mmol/L 136-145 [facility] Aspartate aminotransferase [Enzymatic activity/volume] in Serum or Plasma 253 U/L <40 [facility] Urea nitrogen [Mass/volume] in Serum or Plasma 15 mg/dL 8-23 [facility] Osmolality of Serum or Plasma by calculation 283 mosm/kg 275-300 [facility] Creatinine/Urea nitrogen [Mass Ratio] in Serum or Plasma 19 [facility] Bicarbonate [Moles/volume] in Serum 20 mmol/L 22-29 [facility] Alanine aminotransferase [Enzymatic activity/volume] in Seru m or Plasma 339 U/L <41 [facility] Anion gap 3 in Serum or Plasma 6 mmol/L 8-15 [facility] Glomerular filtration rate/1.73 sq M pre dicted among non-blacks [Volume Rate/Area] in Serum or Plasma by Creatinine-based formula (MDRD) >6 0 [facility] Glomerular filtration rate/1.73 sq M pre dicted among blacks [Volume Rate/Area] in Serum or Plasma by Creatinine-based formula (MDRD) >60 [facility] ID Date Data Source [id number] 03/09/2020 05:49:42 AM [facility] Value Range Interpretation Code Description Data Maria Antonia rce(s) Supporting Document(s) Creatine kinase [Enzymatic activity/volume] in Serum or Plasma 3 003 U/L 20-200 [facility] Confirmed ID Date Data Source [id number] 03/08/2020 09:20:12 PM [facility] Value Range Interpretation Code Description Data Maria Antonia rce(s) Supporting Document(s) Glucose [Mass/volume] in Capillary blood by Glucometer 308 mg/dL 70- 140 [facility] ID Date Data Source [id number] 03/08/2020 05:13:08 PM [facility] Value Range Interpretation Code Description Data Maria Antonia rce(s) Supporting Document(s) Glucose [Mass/volume] in Capillary blood by Glucometer 236 mg/dL 70- 140 [facility] ID Date Data Source [id number] 03/08/2020 11:58:35 AM EST [facility] Name Value Range Interpretation Code Description Data Maria Antonia rce(s) Supporting Document(s) Glucose [Mass/volume] in Capillary blood by Glucometer 285 mg/dL 70- 140 [facility] ID Date Data Source [id number] 03/08/2020 08:17:03 AM [facility] Value Range Interpretation Code Description Data Maria Antonia rce(s) Supporting Document(s) Glucose [Mass/volume] in Capillary blood by Glucometer 255 mg/dL 70- 140 [facility] ID Date Data Source [id number] 03/08/2020 08:03:03 AM [facility] Value Range Interpretation Code Description Data Maria Antonia rce(s) Supporting Document(s) [facility] DLUXOa9mQlEDEwKa13/GWXjuRLJks6VhYXyyRQy2EFjoSEEmR1UnACB4fQ9dWTL5CIeFYaLwMxToGUJ0 lbm ReEqvLVzDxVHFjOfcOJxYiXXjpKxvlcFUqTH1VfIN2LNYvQ34yVWEhQDOqM3QeWWOxLgI+Hr2EHWGeaP KeEA4GYfiX3Q2dG1mTLo3+FnzehhchekDeUDTQh3umdFZ3yJKN7cjfv20FsJNGP5P5EyY1YyhQG9dQQK tOW1wrQldQ1bnVZgBEF0+/b6tcRG1b28fZjTRquoZ/ r86CldLTdtU//9UQk9lu4py7x+zl5hXbpIuEv1Y+U9tfv/Cmr7Z+slQ6m+xtk0KPMjUsxNqSpnkUBn1Y 92Su5SFW9tST4sWLD3z3beVC1OS1//H1a9X/oFg43p5tEC7Ty+3Vqu/yv3OWhJi7dr5v8LI1vVLhvdNr 07fV2tj82x6zpAvICvjV/ZmWhxxZKeXDdNHNlNmmiT c5N144s6Ac6QFKgJWa4ulbfQmpauQF/CjuF1de79/8KMgV2S9yEsnFqlcOj2XNaYZbpxXmo1YegYtVmv vkc9SMUr9VmGDkTSsImtB3HkPEkoTnWTNg3k7Ca+m+Thz5Tp9Y53Ej8IhCN8MJ+0WMQE1P50xLGWnkyg fQ7XTO0J3/s36009M5egC75L2PIV+2o443x7Z9mVrT [file] [id number] ID Date Data Source [id number] 03/08/2020 07:46:34 AM [facility] US ABDOMEN LIMITED [id number] RESULTInte rpreted by:Kerri Adhikari, MDPROCEDURE INFORMATION: Exam: US Abdomen, Limited; Right Upper Quadrant Exam date and time: 03/08/2020 5:35 AM Age: 64 years old Clinical indication: Screening exam; Other: Evaluate ruq TECHNIQUE: Imaging protocol: US abdomen. Real time ultrasound with image documentation. Limited exam focused on the right upper quadrant. COMPARISON: US ABDOMEN LIMITED [id number] PORTABLE 03/06/2020 11:29 PM FINDINGS: Liver: The [...] rce(s) Supporting Document(s) ID Date Data Source [id number] 03/09/2020 04:07:16 PM [facility] Name Value Range Interpretation Code Description Data Maria Antonia rce(s) Supporting Document(s) Liver kidney microsomal 1 Ab [Units/volume] in Serum 0.0-2 0.0 [facility] (NOTE) Neg ative 0.0 - 20.0 Equivocal 20.1 - 24.9 Positive >24.9LKM type 1 antibodies are detected in patients withautoimmune hepatitis type 2 and in up to 8% ofpatients with chronic HCV infection.Performed At: RN [facility] [address] [id number] Bee MD Ph:[phone] ID Date Data Source [id number] 03/09/2020 09:05:59 PM [facility] Name Value Range Interpretation Code Description Data Maria Antonia rce(s) Supporting Document(s) IgG [Mass/volume] in Serum or Plasma 1984 mg/dL 603-1613 H [facility] IgG subclass 1 [Mass/volume] in Serum 1143 mg/dL 248-810 [facility] IgG subclass 2 [Mass/volume] in Serum 316 mg/dL 130-555 [facility] IgG subclass 3 [Mass/volume] in Serum 74 mg/dL 15-102 [facility] IgG subclass 4 [Mass/volume] in Serum 97 mg/dL 2-96 [facility] (NOTE)Performed At: [facility] [address] [place], [place] [id number] Coburn MD Ph:[phone] At: [facility] [address] [id number] Bee MD Ph:[phone] ID Date Data Source [id number] 03/09/2020 10:05:41 PM [facility] Name Value Range Interpretation Code Description Data Maria Antonia rce(s) Supporting Document(s) Hepatitis C virus RNA [Units/volume] (vi ral load) in Serum or Plasma by Probe and target amplification method [facility] Hepatitis C virus RNA [log units/volume] (viral load) in Serum or Plasma by Probe and target amplification method [facility] Service [facility] (NOTE)The quantitative range of this ass ay is 15 IU/mL to 100 millionIU/mL.Performed At: [facility] [id number] Bee MD Ph:[phone] ID Date Data Source [id number] 03/08/2020 08:17:03 AM [facility] Name Value Range Interpretation Code Description Data Maria Antonia rce(s) Supporting Document(s) Hepatitis A virus IgM Ab [Presence] in Serum or Plasma by Im munoassay Non Reactive [facility] No acute infection, susceptible to infec tion. Hepatitis B virus core IgM Ab [Presence] in Serum or Plasma by Immunoassay Non Reactive [facility] IgM antibodies to HBc were not detected, does not exclude the possibility of exposure to HBV. Hepatitis C virus Ab [Presence] in Serum or Plasma by Immuno assay Non Reactive [facility] Past or current Hepatitis C infection. Harish merrill forwarded to reference laboratory for quantitative HCV RNA testing. Hepatitis B virus surface Ag [Presence] in Serum or Plasma b y Immunoassay Non Reactive [facility] No active or previous infection. Suscept ible to infection. ID Date Data Source [id number] 03/08/2020 10:30:48 AM [facility] Value Range Interpretation Code Description Data Maria Antonia rce(s) Supporting Document(s) Hepatitis B virus surface Ab [Units/volume] in Serum o r Plasma by Immunoassay 18 m[IU]/mL >11.4 [facility] ReactiveImmunity due to hepatitis B immu nization or natural infection. ID Date Data Source [id number] 03/09/2020 01:27:49 PM [facility] Value Range Interpretation Code Description Data Maria Antonia rce(s) Supporting Document(s) Neutrophil cytoplasmic Ab [Presence] in Serum by Immunofluoresce nce Negative [facility] ID Date Data Source [id number] 03/09/2020 02:21:54 PM [facility] Value Range Interpretation Code Description Data Maria Antonia rce(s) Supporting Document(s) Mitochondria Ab [Units/volume] in Serum Negative [facility] ID Date Data Source [id number] 03/09/2020 02:21:54 PM [facility] Value Range Interpretation Code Description Data Maria Antonia rce(s) Supporting Document(s) Actin smooth muscle IgG Ab [Units/volume] in Serum Negativ e [facility] ID Date Data Source [id number] 03/08/2020 07:37:50 AM [facility] Value Range Interpretation Code Description Data Maria Antonia rce(s) Supporting Document(s) Prothrombin time (PT) 30.9 s 12.5-14.9 H [facility] INR in Platelet poor plasma by Coagulation assay 2.89 [facility] Routine intensity oral anticoagulation I NR is typically 2.0-3.0. Target INR must be clinically individualized. ID Date Data Source [id number] 03/08/2020 08:10:23 AM [facility] Value Range Interpretation Code Description Data Maria Antonia rce(s) Supporting Document(s) Acetaminophen [Mass/volume] in Serum or Plasma 10.0-30.0 L [facility] ID Date Data Source [id number] 03/08/2020 08:10:23 AM [facility] Value Range Interpretation Code Description Data Maria Antonia rce(s) Supporting Document(s) Alanine aminotransferase [Enzymatic activity/volume] in Seru m or Plasma 432 U/L <41 H [facility] ID Date Data Source [id number] 03/08/2020 08:10:23 AM [facility] Name Value Range Interpretation Code Description Data Maria Antonia rce(s) Supporting Document(s) Aspartate aminotransferase [Enzymatic activity/volume] in Serum or Plasma 469 U/L <40 H [facility] ID Date Data Source [id number] 03/08/2020 08:10:23 AM [facility] Value Range Interpretation Code Description Data Maria Antonia rce(s) Supporting Document(s) Alkaline phosphatase [Enzymatic activity/volume] in Serum or Plasma 76 U/L 40-129 [facility] ID Date Data Source [id number] 03/08/2020 08:10:23 AM [facility] Value Range Interpretation Code Description Data Maria Antonia rce(s) Supporting Document(s) Albumin [Mass/volume] in Serum or Plasma by Bromocresol green (BCG) dye binding method 1.9 g/dL 3.5-5.2 [facility] Sodium [Moles/volume] in Serum or Plasma 130 mmol/L 136-145 L [facility] Potassium [Moles/volume] in Serum or Plasma 4.0 mmol/L 3.4-5.1 [facility] Chloride [Moles/volume] in Serum or Plasma 104 mmol/L 98-107 [facility] Bicarbonate [Moles/volume] in Serum 19 mmol/L 22-29 [facility] Glucose [Mass/volume] in Serum or Plasma 270 mg/dL 70-140 H [facility] Urea nitrogen [Mass/volume] in Serum or Plasma 13 mg/dL 8-23 [facility] Creatinine [Mass/volume] in Serum or Plasma 0.73 mg/dL 0.70-1.20 [facility] Calcium [Mass/volume] in Serum or Plasma 7.9 mg/dL 8.8-10.2 [facility] Phosphate [Mass/volume] in Serum or Plasma 2.3 mg/dL 2.5-4.5 [facility] Glomerular filtration rate/1.73 sq M pre dicted among non-blacks [Volume Rate/Area] in Serum or Plasma by Creatinine-based formula (MDRD) >6 0 [facility] Glomerular filtration rate/1.73 sq M pre dicted among blacks [Volume Rate/Area] in Serum or Plasma by Creatinine-based formula (MDRD) >60 [facility] ID Date Data Source [id number] 03/08/2020 08:10:23 AM [facility] Value Range Interpretation Code Description Data Maria Antonia rce(s) Supporting Document(s) Bilirubin.total [Mass/volume] in Serum or Plasma 2.2 mg/dL <1.2 H [facility] ID Date Data Source [id number] 03/08/2020 08:10:23 AM [facility] Value Range Interpretation Code Description Data Maria Antonia rce(s) Supporting Document(s) Ferritin [Mass/volume] in Serum or Plasma 170 ng/ml 30-400 [facility] ID Date Data Source [id number] 03/08/2020 08:10:23 AM [facility] Value Range Interpretation Code Description Data Maria Antonia rce(s) Supporting Document(s) Bilirubin.direct [Mass/volume] in Serum or Plasma 0.7 mg/dL <0.3 H [facility] ID Date Data Source [id number] 03/08/2020 08:10:23 AM [facility] Value Range Interpretation Code Description Data Maria Antonia rce(s) Supporting Document(s) Protein [Mass/volume] in Serum or Plasma 5.3 g/dL 6.4-8.3 L [facility] ID Date Data Source [id number] 03/08/2020 08:10:23 AM [facility] Value Range Interpretation Code Description Data Maria Antonia rce(s) Supporting Document(s) Salicylates [Mass/volume] in Serum or Plasma 3.0-30.0 L [facility] ID Date Data Source [id number] 03/08/2020 10:14:48 AM [facility] Value Range Interpretation Code Description Data Maria Antonia rce(s) Supporting Document(s) Alpha 1 antitrypsin [Mass/volume] in Serum or Plasma 110 mg/dl 90-20 0 [facility] ID Date Data Source [id number] 03/08/2020 10:14:48 AM [facility] Value Range Interpretation Code Description Data Maria Antonia rce(s) Supporting Document(s) Ceruloplasmin [Mass/volume] in Serum or Plasma 16 mg/dl 15-30 [facility] ID Date Data Source [id number] 03/08/2020 11:28:28 AM [facility] Name Value Range Interpretation Code Description Data Maria Antonia rce(s) Supporting Document(s) Natriuretic peptide.B prohormone N-Terminal [Mass/volu me] in Serum or Plasma 805 pg/mL <125 H [facility] ID Date Data Source [id number] 03/08/2020 11:50:41 AM [facility] Name Value Range Interpretation Code Description Data Maria Antonia rce(s) Supporting Document(s) Fibrin D-dimer FEU [Mass/volume] in Platelet poor plas ma by Immunoassay 0.57 ug/mL{FEU} <0.50 H [facility] ID Date Data Source [id number] 03/08/2020 03:01:46 PM [facility] Value Range Interpretation Code Description Data Maria Antonia rce(s) Supporting Document(s) Lactate dehydrogenase [Enzymatic activit y/volume] in Serum or Plasma by Lactate to pyruvate reaction 1330 U/L 122-225 H [facility] Confirmed ID Date Data Source [id number] 03/08/2020 05:17:56 AM [facility] Value Range Interpretation Code Description Data Maria Antonia rce(s) Supporting Document(s) Leukocytes [#/volume] in Blood by Automated count 7.0 10*3/uL 4-10 [facility] Erythrocytes [#/volume] in Blood by Automated count 3.33 10*6/uL 4.6- 6.1 [facility] Hemoglobin [Mass/volume] in Blood 11.4 g/dL 13.5-18 L [facility] Hematocrit [Volume Fraction] of Blood by Automated count 33.5 % 4 1-53 [facility] Erythrocyte mean corpuscular volume [Entitic volume] b y Automated count 100.7 fL 80-96 H [facility] Erythrocyte mean corpuscular hemoglobin [Entitic mass] by Automated count 34.2 pg 27-33 H [facility] Erythrocyte mean corpuscular hemoglobin concentration [Mass/volume] by Automated count 34.0 g/dL 32.0-36.0 [facility] width [Ratio] by Automated count 16.6 % 11.5-14.5 [facility] Platelets [#/volume] in Blood by Automated count 90 10*3/uL 150-400 L [facility] ID Date Data Source [id number] 03/08/2020 05:34:12 AM [facility] Name Value Range Interpretation Code Description Data Maria Antonia rce(s) Supporting Document(s) Albumin [Mass/volume] in Serum or Plasma by Bromocresol green (BCG) dye binding method 2.0 g/dL 3.5-5.2 [facility] Bilirubin.total [Mass/volume] in Serum or Plasma 2.2 mg/dL <1.2 H [facility] Calcium [Mass/volume] in Serum or Plasma 7.8 mg/dL 8.8-10.2 L [facility] Chloride [Moles/volume] in Serum or Plasma 107 mmol/L 98-107 [facility] Creatinine [Mass/volume] in Serum or Plasma 0.71 mg/dL 0.70-1.20 [facility] Glucose [Mass/volume] in Serum or Plasma 274 mg/dL 70-140 H [facility] Alkaline phosphatase [Enzymatic activity/volume] in Serum or Plasma 80 U/L 40-129 [facility] Potassium [Moles/volume] in Serum or Plasma 4.0 mmol/L 3.4-5.1 [facility] Protein [Mass/volume] in Serum or Plasma 5.2 g/dL 6.4-8.3 L [facility] Sodium [Moles/volume] in Serum or Plasma 133 mmol/L 136-145 L [facility] Aspartate aminotransferase [Enzymatic activity/volume] in Serum or Plasma 501 U/L <40 H [facility] Urea nitrogen [Mass/volume] in Serum or Plasma 14 mg/dL 8-23 [facility] Osmolality of Serum or Plasma by calculation 286 mosm/kg 275-300 [facility] Creatinine/Urea nitrogen [Mass Ratio] in Serum or Plasma 20 [facility] Bicarbonate [Moles/volume] in Serum 19 mmol/L 22-29 L [facility] Alanine aminotransferase [Enzymatic activity/volume] in Seru m or Plasma 441 U/L <41 H [facility] Anion gap 3 in Serum or Plasma 7 mmol/L 8-15 L [facility] Glomerular filtration rate/1.73 sq M pre dicted among non-blacks [Volume Rate/Area] in Serum or Plasma by Creatinine-based formula (MDRD) >6 0 [facility] Glomerular filtration rate/1.73 sq M pre dicted among blacks [Volume Rate/Area] in Serum or Plasma by Creatinine-based formula (MDRD) >60 [facility] ID Date Data Source [id number] 03/07/2020 09:33:42 PM [facility] Value Range Interpretation Code Description Data Maria Antonia rce(s) Supporting Document(s) Glucose [Mass/volume] in Capillary blood by Glucometer 300 mg/dL 70- 140 H [facility] ID Date Data Source [id number] 03/07/2020 09:33:42 PM [facility] Value Range Interpretation Code Description Data Maria Antonia rce(s) Supporting Document(s) Glucose [Mass/volume] in Capillary blood by Glucometer 314 mg/dL 70- 140 [facility] ID Date Data Source [id number] 03/07/2020 06:05:04 PM [facility] Value Range Interpretation Code Description Data Maria Antonia rce(s) Supporting Document(s) Glucose [Mass/volume] in Capillary blood by Glucometer 264 mg/dL 70- 140 [facility] ID Date Data Source [id number] 03/07/2020 04:39:38 PM [facility] Value Range Interpretation Code Description Data Maria Antonia rce(s) Supporting Document(s) Glucose [Mass/volume] in Capillary blood by Glucometer 233 mg/dL 70- 140 [facility] ID Date Data Source [id number] 03/07/2020 11:49:44 AM [facility] Value Range Interpretation Code Description Data Maria Antonia rce(s) Supporting Document(s) Glucose [Mass/volume] in Capillary blood by Glucometer 326 mg/dL 70- 140 [facility] ID Date Data Source [id number] 03/07/2020 08:33:10 AM [facility] Value Range Interpretation Code Description Data Maria Antonia rce(s) Supporting Document(s) Glucose [Mass/volume] in Capillary blood by Glucometer 315 mg/dL 70- 140 [facility] ID Date Data Source [id number] 03/07/2020 01:46:37 AM [facility] Value Range Interpretation Code Description Data Maria Antonia rce(s) Supporting Document(s) History and Physical [facility] [id number] lbm [file] 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 Name Value Range Interpretation Code Description Data Maria Antonia rce(s) Supporting Document(s) Ethanol [Mass/volume] in Serum or Plasma Negative [facility] ID Date Data Source [id number] 03/07/2020 02:17:20 AM [facility] Name Value Range Interpretation Code Description Data Maria Antonia rce(s) Supporting Document(s) Leukocytes [#/volume] in Blood by Automated count 6.8 10*3/uL 4-10 [facility] Erythrocytes [#/volume] in Blood by Automated count 3.38 10*6/uL 4.6- 6.1 L [facility] Hemoglobin [Mass/volume] in Blood 11.5 g/dL 13.5-18 L [facility] Hematocrit [Volume Fraction] of Blood by Automated count 33.7 % 4 1-53 L [facility] Erythrocyte mean corpuscular volume [Entitic volume] by Auto mated count 99.8 fL 80-96 H [facility] Erythrocyte mean corpuscular hemoglobin [Entitic mass] by Automated count 34.0 pg 27-33 H [facility] Erythrocyte mean corpuscular hemoglobin concentration [Mass/volume] by Automated count 34.0 g/dL 32.0-36.0 [facility] Erythrocyte distribution width [Ratio] by Automated count 16.3 % 11.5-14.5 [facility] Platelets [#/volume] in Blood by Automated count 82 10*3/uL 150-400 L [facility] ID Date Data Source [id number] 03/07/2020 02:52:13 AM [facility] Name Value Range Interpretation Code Description Data Maria Antonia rce(s) Supporting Document(s) Albumin [Mass/volume] in Serum or Plasma by Bromocresol green (BCG) dye binding method 1.9 g/dL 3.5-5.2 L [facility] Bilirubin.total [Mass/volume] in Serum or Plasma 1.8 mg/dL <1.2 H [facility] Calcium [Mass/volume] in Serum or Plasma 7.8 mg/dL 8.8-10.2 [facility] Chloride [Moles/volume] in Serum or Plasma 103 mmol/L 98-107 [facility] Creatinine [Mass/volume] in Serum or Plasma 0.78 mg/dL 0.70-1.20 [facility] Glucose [Mass/volume] in Serum or Plasma 336 mg/dL 70-140 H [facility] Alkaline phosphatase [Enzymatic activity/volume] in Serum or Plasma 85 U/L 40-129 [facility] Potassium [Moles/volume] in Serum or Plasma 4.5 mmol/L 3.4-5.1 [facility] Protein [Mass/volume] in Serum or Plasma 5.3 g/dL 6.4-8.3 [facility] Sodium [Moles/volume] in Serum or Plasma 133 mmol/L 136-145 [facility] Aspartate aminotransferase [Enzymatic activity/volume] in Serum or Plasma 852 U/L <40 H [facility] Confirmed Urea nitrogen [Mass/volume] in Serum or Plasma 14 mg/dL 8-23 [facility] Osmolality of Serum or Plasma by calculation 289 mosm/kg 275-300 [facility] Creatinine/Urea nitrogen [Mass Ratio] in Serum or Plasma 18 [facility] Bicarbonate [Moles/volume] in Serum 22 mmol/L 22-29 [facility] Alanine aminotransferase [Enzymatic activity/volume] in Seru m or Plasma 505 U/L <41 H [facility] Anion gap 3 in Serum or Plasma 9 mmol/L 8-15 [facility] Glomerular filtration rate/1.73 sq M pre dicted among non-blacks [Volume Rate/Area] in Serum or Plasma by Creatinine-based formula (MDRD) >6 0 [facility] Glomerular filtration rate/1.73 sq M pre dicted among blacks [Volume Rate/Area] in Serum or Plasma by Creatinine-based formula (MDRD) >60 [facility] ID Date Data Source [id number] 03/07/2020 10:12:22 AM [facility] Name Value Range Interpretation Code Description Data Maria Antonia rce(s) Supporting Document(s) Creatine kinase [Enzymatic activity/volume] in Serum or Plasma 1 4700 U/L 20-200 H [facility] Confirmed ID Date Data Source [id number] 03/07/2020 05:41:54 AM [facility] Name Value Range Interpretation Code Description Data Maria Antonia rce(s) Supporting Document(s) Color of Urine [facility] Clarity of Urine [facility] Specific gravity of Urine by Refractometry automated 1.005 1.003 -1.030 [facility] pH of Urine by Automated test strip 5.0 5.0-8.0 [facility] Protein [Mass/volume] in Urine by Automated test strip Neg [facility] Glucose [Mass/volume] in Urine by Automated test strip Neg [facility] Ketones [Mass/volume] in Urine by Automated test strip Neg [facility] Bilirubin.total [Presence] in Urine by Automated test strip Negative [facility] Hemoglobin [Presence] in Urine by Automated test strip Neg [facility] A [facility] Leukocyte esterase [Presence] in Urine by Automated test strip Negative [facility] Nitrite [Presence] in Urine by Automated test strip Negati ve [facility] Leukocytes [#/area] in Urine sediment by Automated count 1 /HPF 0 -5 [facility] Erythrocytes [#/area] in Urine sediment by Automated count 6 /HPF 0-3 H [facility] Bacteria [#/area] in Urine sediment by Automated count Non e [facility] Epithelial cells.squamous [#/area] in Urine sediment by Automate d count None [facility] Mucus [#/area] in Urine sediment by Microscopy low power field None [facility] [place] [#/area] in Urine sediment by Microscopy high po wer field 2 /[HPF] None [facility] ID Date Data Source [id number] 03/06/2020 11:38:58 PM [facility] US ABDOMEN LIMITED [id number] RESULTInte rpreted by:BRANDON FigueroaPROCEDURE INFORMATION: Exam: US [...] DOCUMENT HAS BEEN ELECTRONICALLY SIGNED BY MELI Samanos document has been electronically signed by BRANDON Figueroa on 03/06/2020 11:38 PM Name Value Range Interpretation Code Description Data Maria Antonia rce(s) Supporting Document(s) ID Date Data Source [id number] 03/06/2020 10:57:00 PM EST [facility] Name Value Range Interpretation Code Description Data Maria Antonia rce(s) Supporting Document(s) SARS-CoV-2 RNA [facility] This lab was ordered by [facility] and reported by [facility] ID Date Data Source [id number] 03/07/2020 09:57:18 AM 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 Name Value Range Interpretation Code Description Data Maria Antonia rce(s) Supporting Document(s) Bicarbonate [Moles/volume] in Serum 20 mmol/L 22-29 L [facility] Chloride [Moles/volume] in Serum or Plasma 103 mmol/L 98-107 [facility] Creatinine [Mass/volume] in Serum or Plasma 0.77 mg/dL 0.70-1.20 [facility] Glucose [Mass/volume] in Serum or Plasma 317 mg/dL 70-140 H [facility] Potassium [Moles/volume] in Serum or Plasma 4.9 mmol/L 3.4-5.1 [facility] Hemolyzed Sodium [Moles/volume] in Serum or Plasma 133 mmol/L 136-145 L [facility] Urea nitrogen [Mass/volume] in Serum or Plasma 13 mg/dL 8-23 [facility] Anion gap 3 in Serum or Plasma 9 mmol/L 8-15 [facility] Osmolality of Serum or Plasma by calculation 288 mosm/kg 275-300 [facility] Creatinine/Urea nitrogen [Mass Ratio] in Serum or Plasma 17 [facility] Calcium [Mass/volume] in Serum or Plasma 7.8 mg/dL 8.8-10.2 L [facility] Glomerular filtration rate/1.73 sq M pre dicted among non-blacks [Volume Rate/Area] in Serum or Plasma by Creatinine-based formula (MDRD) >6 0 [facility] Glomerular filtration rate/1.73 sq M pre dicted among blacks [Volume Rate/Area] in Serum or Plasma by Creatinine-based formula (MDRD) >60 [facility] ID Date Data Source [id number] 03/07/2020 12:29:32 AM [facility] Value Range Interpretation Code Description Data Maria Antonia rce(s) Supporting Document(s) Albumin [Mass/volume] in Serum or Plasma by Bromocresol green (BCG) dye binding method 1.9 g/dL 3.5-5.2 [facility] Bilirubin.total [Mass/volume] in Serum or Plasma 1.6 mg/dL <1.2 H [facility] Bilirubin.direct [Mass/volume] in Serum or Plasma 0.5 mg/dL <0.3 H [facility] Alkaline phosphatase [Enzymatic activity/volume] in Serum or Plasma 88 U/L 40-129 [facility] Aspartate aminotransferase [Enzymatic activity/volume] in Serum or Plasma 897 U/L <40 H [facility] Confirmed Alanine aminotransferase [Enzymatic activity/volume] in Seru m or Plasma 506 U/L <41 H [facility] Protein [Mass/volume] in Serum or Plasma 5.4 g/dL 6.4-8.3 L [facility] ID Date Data Source [id number] 03/07/2020 12:29:32 AM [facility] Value Range Interpretation Code Description Data Maria Antonia rce(s) Supporting Document(s) Creatine kinase [Enzymatic activity/volume] in Serum or Plasma 1 6166 U/L 20-200 H [facility] Confirmed ID Date Data Source [id number] 03/06/2020 11:56:27 PM [facility] Value Range Interpretation Code Description Data Maria Antonia rce(s) Supporting Document(s) Prothrombin time (PT) 45.6 s 12.5-14.9 H [facility] INR in Platelet poor plasma by Coagulation assay 4.72 [facility] Routine intensity oral anticoagulation I NR is typically 2.0-3.0. Target INR must be clinically individualized. ID Date Data Source [id number] 03/06/2020 11:42:13 PM [facility] Value Range Interpretation Code Description Data Maria Antonia rce(s) Supporting Document(s) Leukocytes [#/volume] in Blood by Automated count 6.9 10*3/uL 4-10 [facility] Erythrocytes [#/volume] in Blood by Automated count 3.39 10*6/uL 4.6- 6.1 L [facility] Hemoglobin [Mass/volume] in Blood 11.6 g/dL 13.5-18 L [facility] Hematocrit [Volume Fraction] of Blood by Automated count 34.0 % 4 1-53 L [facility] Erythrocyte mean corpuscular volume [Entitic volume] b y Automated count 100.4 fL 80-96 H [facility] Erythrocyte mean corpuscular hemoglobin [Entitic mass] by Automated count 34.1 pg 27-33 H [facility] Erythrocyte mean corpuscular hemoglobin concentration [Mass/volume] by Automated count 34.0 g/dL 32.0-36.0 [facility] E[facility]th[facility] distribution width [Ratio] by Automated count 16.4 % 11.5-14.5 H [facility] Platelets [#/volume] in Blood by Automated count 79 10*3/uL 150-400 L [facility] Differential cell count method - Blood [facility] Neutrophils/100 leukocytes in Blood by Automated count 65 % [facility] Lymphocytes/100 leukocytes in Blood by Automated count 16 % [facility] Monocytes/100 leukocytes in Blood by Automated count 14 % [facility] Eosinophils/100 leukocytes in Blood by Automated count 4 % [facility] Basophils/100 leukocytes in Blood by Automated count 1 % [facility] Neutrophils [#/volume] in Blood by Automated count 4.44 10*3/uL 1.8-7 .0 [facility] Lymphocytes [#/volume] in Blood by Automated count 1.09 10*3/uL 1.2-4 .0 [facility] Monocytes [#/volume] in Blood by Automated count 0.94 10*3/uL 0-0.8 [facility] Eosinophils [#/volume] in Blood by Automated count 0.30 10*3/uL 0-0.5 [facility] Basophils [#/volume] in Blood by Automated count 0.08 10*3/uL 0-0.2 [facility] Nucleated erythrocytes/100 leukocytes [Ratio] in Blood by Automated count 0 /100{WBCs} 0-0 [facility] ID Date Data Source [id number] 03/07/2020 03:14:13 AM [facility] Name Value Range Interpretation Code Description Data Maria Antonia rce(s) Supporting Document(s) Hepatitis C virus Ab [Presence] in Serum or Plasma by Immuno assay Non Reactive A [facility] Past or current Hepatitis C infection. S jacinton forwarded to reference laboratory for quantitative HCV RNA testing. ID Date Data Source [id number] 03/06/2020 09:28:51 PM EST [facility] Name Value Range Interpretation Code Description Data Maria Antonia rce(s) Supporting Document(s) Glucose [Mass/volume] in Capillary blood by Glucometer 293 mg/dL 70- 140 H [facility] ID Date Data Source [id number] 03/05/2020 02:20:00 PM EST [facility] Name Value Range Interpretation Code Description Data Maria Antonia rce(s) Supporting Document(s) SARS coronavirus 2 RNA [Presence] in Res piratory specimen by ARAM with probe detection [facility] This lab was ordered by [facility] a nd reported by [facility]. Procedure Social History Code Duration Value Status Description Data Source(s ) Alcohol intake 03/06/2020 12:00:00 AM EST Ex-drinker (finding) comp leted Ex- drinker (finding) [facility] Smoking 03/06/2020 12:00:00 AM EST Unknown if ever smoked comp leted Unknown if ever smoked [facility] Vital Signs ID Date Data Source [id number] 03/17/2020 07:53:41 AM EST [facility] Name Value Range Interpretation Code Description Data Source(s) WEIGHT RECORDED 156 lb 156 lb [facility] Body height Measured 70 in 70 in [facility] WEIGHT RECORDED 154.6 lb 154.6 lb [facility] Body height Measured 70 in 70 in [facility] TRANSFER FROM [facility] Patient Treatment Plan of Care Planned Activity Planned Date Details Description Data Source (s) Insulin, Aspart, Human 100 UNT/ML Injectable Solution 09/20/2020 12:00:00 AM [facility] ospital 3 ML Insulin Glargine 100 UNT/ML Pen Injector 09/20/2020 12:00:00 A M [facility] quetiapine 25 MG Oral Tablet 09/19/2020 10:00:00 AM [facility] Acetaminophen 325 MG Oral Tablet 09/17/2020 11:58:43 AM [facility] Ozempic (0.25 or 0.5 MG/DOSE) 2 MG/1.5ML Subcutaneous Solution Pen-injector (semaglutide) 09/17/2020 12:00:00 AM EDT [facility] dextrose 50 % IV solution 25 mL 09/16/2020 08:35:03 AM [facility] Glucagon 1 MG Injection 09/16/2020 08:35:03 AM [facility] Glucose 0.417 MG/MG Oral Gel 09/16/2020 08:35:03 AM [facility] Metoprolol Tartrate 1 MG/ML Injectable Solution 09/13/2020 05:28:33 PM [facility] albuterol (PROVENTIL HFA) inhaler 2 puff 09/12/2020 03:59:11 PM [facility] Insulin Aspart FlexPen 100 UNIT/ML 07/20/2020 01:00:00 AM EDT [facility]) Lantus SoloStar 100 UNIT/ML 07/20/2020 01:00:00 AM EDT [facility]) Aspirin EC 81 MG 07/20/2020 01:00:00 AM EDT [facility]) Capsaicin 0.025 % 07/20/2020 01:00:00 AM EDT [facility]) Ergocal 2500 UNIT 07/20/2020 01:00:00 AM EDT [facility]) Folic Acid 1 MG 07/20/2020 01:00:00 AM EDT [facility]) Lactulose 10 GM/15ML 07/20/2020 01:00:00 AM EDT [facility]) Metoprolol Tartrate 25 MG 07/20/2020 01:00:00 AM EDT [facility]) Multi Vitamin 07/20/2020 01:00:00 AM EDT [facility]) Pantoprazole Sodium 40 MG 07/20/2020 01:00:00 AM EDT [facility]) Pregabalin 150 MG 07/20/2020 01:00:00 AM EDT [facility]) Xifaxan 550 MG 07/20/2020 01:00:00 AM EDT [facility]) Spironolactone 100 MG 07/20/2020 01:00:00 AM EDT [facility] ([facility]) Thiamine HCl 100 MG 07/20/2020 01:00:00 AM EDT [facility] ([facility]) oxyCODONE HCl 5 MG 07/20/2020 01:00:00 AM EDT [facility] ([facility]) Spironolactone 100 MG Oral Tablet 03/11/2020 12:00:00 AM [facility] Furosemide 40 MG Oral Tablet 03/11/2020 12:00:00 AM [facility] dextrose 50 % IV solution 25 mL 03/06/2020 09:52:55 PM [facility] Glucagon 1 MG Injection 03/06/2020 09:52:55 PM [facility] Glucose 0.417 MG/MG Oral Gel 03/06/2020 09:52:55 PM [facility] 3 ML Insulin [facility]ine 100 [facility], Aspart, Human [facility]
[2021-01-10] MEDS ORDERED: LACTULOSE 20 GM/30 ML SYRUP UD PO ONE (15:35)
[2021-01-10 15:50] LABS: BASO # 0.1 10^3/uL (0.0-0.2); BASO % 2.1 % (0.0-1.0); EOS # 0.2 10^3/uL (0.0-0.5); EOS % 2.9 % (0.0-3.0); HEMATOCRIT 31.5 % (42.0-52.0); LYMPH # 1.2 10^3/uL (1.5-5.0); LYMPH % 19.9 % (24.0-44.0); MEAN CORPUSCULAR HEMOGLOBIN 25.4 pg (27.0-33.0); MEAN CORPUSCULAR HGB CONC 31.7 g/dl (32.0-36.5); MEAN CORPUSCULAR VOLUME 80.2 fl (80.0-96.0); MONO # 0.9 10^3/uL (0.0-0.8); NEUTROPHILS # 3.5 10^3/uL (1.5-8.5); NEUTROPHILS % 59.9 % (36.0-66.0); PLATELET COUNT, AUTOMATED 136 10^3/uL (150-450); RED BLOOD COUNT 3.93 10^6/uL (4.30-6.10); WHITE BLOOD COUNT 5.8 10^3/uL (4.0-10.0)
--- OUTSIDE RECORDS SUMMARY | 2021-01-10 16:04 | CCD ---
Author Author [facility] Organization [facility] Address Unknown Phone Unavailable Care Team Providers Care Forepart Reducer Name Role Phone John, C Virginia DO Unavailable Unavailable John, C Virginia DO Unavailable Unavailable Dorothy, C Virginia DO Unavailable Unavailable John, C Virginia DO Unavailable Unavailable John, C Virginia DO Unavailable Unavailable John, C Virginia DO Unavailable Unavailable John, C Virginia DO Unavailable Unavailable Dorothy, C Virginia DO Unavailable Unavailable John, C Virginia DO Unavailable Unavailable John, C Virginia DO Unavailable Unavailable John, C Virginia DO Unavailable Unavailable Dorothy, C Virginia DO Unavailable Unavailable Dorothy, C Virginia DO Unavailable Unavailable John, C Virginia DO Unavailable Unavailable John, C Virginia DO Unavailable Unavailable Dorothy, C Virginia DO Unavailable Unavailable Dorothy, C Virginia DO Unavailable Unavailable Dorothy, C Virginia DO Unavailable Unavailable Dorothy, C Virginia DO Unavailable Unavailable John, C Virginia DO Unavailable Unavailable John, C Virginia DO Unavailable Unavailable John, C Virginia DO Unavailable Unavailable Dorothy, C Virginia DO Unavailable Unavailable John, C Virginia DO Unavailable Unavailable Dorothy, C Virginia DO Unavailable Unavailable Dorothy, C Virginia DO Unavailable Unavailable John, C Virginia DO Unavailable Unavailable Dorothy, C Virginia DO Unavailable Unavailable John, C Virginia DO Unavailable Unavailable John, C Virginia DO Unavailable Unavailable John, C Virginia DO Unavailable Unavailable John, C Virginia DO Unavailable Unavailable Dorothy, C Virginia DO Unavailable Unavailable Dorothy, C Virginia DO Unavailable Unavailable John, C [...] WEBB MD Unavailable Unavailable Zach Valdez Unavailable [phone] Zach Valdez Unavailable [phone] Zach Valdez Unavailable [phone] Zach Valdez Unavailable [phone] Zach Valdez Unavailable [phone] Zach Valdez Unavailable [phone] Re-disclosure Warning The records that you are [...] is protected by Article 27-F of the [facility] Public Health law. If you continue you may have access to information: Regarding HIV / AIDS; Provided by facilities licensed or operated by the [facility] Office of Mental Health; or Provided by the [facility] Office for People With Developmental Disabilities. If such information is present, then the following [facility] mandated warning applies: This information has been [...] law may result in a fine or detention sentence or both. A general authorization for the release of medical or other information is NOT sufficient authorization for further disc losure. Allergies and Adverse Reactions Type Description Substance Reaction Status Data Source(s ) Gabapentin, Spironolactone, Metformin, Atorvastatin Ga bapentin, Spironolactone, Metformin, Atorvastatin Gabapentin, Spironolactone, Metformin, Atorvastatin active NETSMART ([facility] ) Propensity to adverse reactions SPIRONOLACTONE SPIRONOLACTONE Other [facility] Propensity to adverse reactions GABAPENTIN GABAPENTIN N&V [facility] Propensity to adverse reactions EGGS OR EGG-DERIVED PRODUCTS EGGS OR EGG-DERIVED PRODUCTS Itching [facility] ospital Encounters Encounter Providers Location Date Indications Data Source(s ) Emergency Attender: MARISA PAEZ MDAdmitter: TALIA Henryer: MARISA PAEZ MD 09/11/2020 05:10:52 PM EDT Cerebral inf arction, unspecified [facility] Cerebral infarction, unspecified Emergency Attender: MARISA PAEZ MDAdmitter: TALIA Henryer: MARISA PAEZ MD 09/11/2020 05:05:55 PM EDT Cerebral inf arction, unspecified [facility] Cerebral infarction, unspecified Emergency Attender: MARISA PAEZ MDAdmitter: TALIA Torres: MARISA PAEZ MD 09/11/2020 05:05:41 PM EDT Cerebral inf arction, unspecified [facility] Cerebral infarction, unspecified Inpatient Attender: Rogelio Holt MDAt tender: LANE MOORE MDAttender: MARISA PAEZ MDAttender: Virginia Lopez DOAttender: Talia LedezmayAttender: TALIA JAMIRHRYAdmitter: TALIA JUANMLeferrer: TALIA BOWIEHRY [id number] 09/11/2020 12:00:00 AM EDT - 09/20/2020 03:50:00 PM EDT [facility] Patient discharged. 07/20/2020 01:00:00 AM EDT - 021 11:47:40 AM EDT [facility]) Outpatient Attender: Zach Valdez 06/03 03:27:53 PM EDT - 06/03/2020 04:58:24 PM EDT [facility] ([facility] ) Inpatient Attender: MOON Mullen nder: SERENITY COBB MDAttender: JOSETTE STEWART MDAttender: ANGELO WATTS MDAttender: DAVID Youssef MDAdmitter: AUDIE HernándezReferrer: DAVID Youssef MDConsultant: JOSETTE STEWART MD A-A 03/06/2020 12:00:00 AM EST - 03/10/2020 03:51:00 PM EST hepatic encephalopaty, rhabdo, AMS [facility] hepatic encephalopaty, rhabdo, AMS Patient discharged. Immunizations Vaccine Date Status Description Data Source(s) COVID-19 VACCINE 07/28/2020 12:00:00 AM EDT completed [facility] Vaccine Series Complete: YESThis Data wa s Submitted to [facility] Via [facility]. Medications Medication Brand Name Start Date Product [...] provided. Maximum daily dose 55units. DX 11.65 [facility] 3 ML Insulin Glargine 100 UNT/ML Pen Inj cam Insulin Glargine 100 UNIT/ML Subcutaneous Solution Pen-injector (LANTUS SOLOSTAR) Insulin Glargine 100 UNIT/ML Subcutaneous Solution Pen-injector (LANTUS SOLOSTAR) 09/20/2020 12:00:00 AM EDT 35 U Subcutaneous active Inj ect 35 Units into the skin nightly Inject 35 units lantus daily [facility] quetiapine 25 MG Oral Tablet QUEtiapine (SEROquel) tab let 12.5 mg QUEtiapine (SEROquel) tablet 12.5 mg 09/19/2020 10:00:00 AM EDT 12.5 mg Oral active 12.5 mg, Oral, Nightly PRN, For agitation, Starting on 09/19/20 at 1000, For 72 hours
Hold if patient is lethargic.
[facility] Medication administered onsite Insulin Glargine 100 UNT/ML [...] glucose more than 400 mg/dL: notify provider
[facility] Medication administered onsite insulin lispro (HUMALOG) injection CUSTO MIZABLE DOSE INSULIN patients 1-40 Units [id number] 09/18/2020 01:00:00 PM EDT U Subcutaneous active [...] gm if only clear liquid consumed): 28 [facility] Medication administered onsite Oxycodone Hydrochloride 5 MG [...] only) require Pain Service consultation and approval.
[facility] Medication administered onsite insulin lispro (HUMALOG) injection CUSTO MIZABLE DOSE INSULIN patients 1-40 Units [id number] 09/17/2020 06:00:00 PM EDT U Subcutaneous aborted [...] gm if only clear liquid consumed): 26 [facility] Medication administered onsite Acetaminophen 325 MG Oral [...] mg from all sources in 24 hours.
[facility] Medication administered onsite Ozempic (0.25 or 0.5 MG/DOSE) 2 MG/1.5ML Subcutaneous Solution Pen-injector (semaglutide) [id number] 09/17/2020 12:00:00 AM EDT 0.25 mg Subcut aneous active Inject 0.25 mg into the skin every 7 (seven) days [facility] Sodium Bicarbonate 650 MG Oral Tablet sodium bicarbona te tablet 650 mg sodium bicarbonate tablet 650 mg 09/16/2020 05:00:00 PM EDT 650 mg Oral active 650 mg, Oral, Three Times Daily Standar d, First dose on Sun09/16/20 at 1700, For 20 doses [facility] Medication administered onsite insulin lispro (HUMALOG) injection CUSTO MIZABLE DOSE INSULIN patients 1-40 Units [id number] 09/16/2020 09:00:00 AM EDT U Subcutaneous aborted [...] gm if only clear liquid consumed): 24 [facility] Medication administered onsite Insulin Glargine 100 UNT/ML [...] glucose more than 400 mg/dL: notify provider
[facility] Medication administered onsite Glucose 0.417 MG/MG Oral Gel glucose (GLUTOSE) 40 % or al gel 15 g glucose (GLUTOSE) 40 % oral gel 15 g 09/16/2020 08:35:03 AM EDT 15 g Oral active 15 g, Oral, PRN, Low blood s ugar, for gluose 55-69 mg/dl and able to take PO, Starting on Ann 09/16/20 at 0835, For 30 days [facility] Medication administered onsite Glucagon 1 MG Injection glucagon (human recombinant) ( GLUCAGEN) injection 1 mg glucagon (human recombinant) (GLUCAGEN) injection 1 mg 09/16/2020 08:35:03 AM EDT 1 mg Intramuscular active 1 mg, Intramuscular, PRN, for glucose <55 without IV access, Starting on Ann 09/16/20 at 0835, For 30 days [facility] Medication administered onsite dextrose 50 % IV solution 25 mL [id number] 09/16/2020 08:35:03 AM E DT 25 mL Intravenous active 25 mL, Intrav enous, PRN, Other, blood glucose <55, Starting on Sun09/16/20 at 0835, For 30 days
Not for midline administration.
[facility] Medication administered onsite quetiapine 25 MG Oral Tablet QUEtiapine (SEROquel) tab let 12.5 mg QUEtiapine (SEROquel) tablet 12.5 mg 09/15/2020 09:00:00 PM EDT 12.5 mg Oral aborted 12.5 mg, Oral, Every evening , First dose on Sun09/15/20 at 2100, For 30 days
Hold if patient is lethargic.
[facility] Medication administered onsite insulin lispro (HumaLOG) injection MEDIU M DOSE EATING INSULIN patients 1-16 Units [id number] 09/15/2020 01:00:00 PM EDT U Subcutaneous aborted 1-16 Units, Subcutaneous, Three Times Daily-With Meals, First dose on Sun09/15/20 at 1300, For 30 days
Nursing MUST open the 'SQ Insulin Dosing Charts' Sidebar Report, or, the Patient Summary or Summary Report within the ED.
[facility] Medication administered onsite Spironolactone 25 MG Oral Tablet spironolactone (ALDAC TONE) tablet 25 mg spironolactone (ALDACTONE) tablet 25 mg 09/15/2020 09:00:00 AM EDT 25 mg Oral active 25 mg, Oral, Da lela Standard, First dose (after last modification) on Sun09/15/20 at 0900, For 27 doses [facility] Medication administered onsite Melatonin 5 MG Oral Tablet melatonin tablet 10 mg melatonin tablet 10 mg 09/14/2020 10:00:00 PM EDT 10 mg Oral active 10 mg, Oral, Nightly, First dose on Sun09/14/20 at 2200, For 30 days [facility] Medication administered onsite Insulin Glargine 100 UNT/ML [...] glucose more than 400 mg/dL: notify provider
[facility] Medication administered onsite insulin lispro (HumaLOG) injection LOW DOSE EATING INS ULIN patients 1-8 Units [id number] 09/14/2020 06:00:00 PM EDT U Subcutaneous aborted 1-8 Units, Subcutaneous, Three Times Daily-With Meals, First dose on Sun09/14/20 at 1800, For 30 days
Nursing MUST open the 'SQ Insulin Dosing Charts' Sidebar Report, or, the Patient Summary or Summary Report within the ED.
[facility] Medication administered onsite haloperidol lactate (HALDOL) injection 1 mg [id number] 09/14/2020 05:30:00 PM EDT 1 mg Intramuscular completed 1 mg, Intramuscular, Once, On Sun09/14/20 at 1730, For 1 dose [facility] Medication administered onsite NaCl infusion 0.9 % [id number] 09/14/2020 03:30:00 PM EDT Intravenous completed at 500 mL/hr, Intrav enous, Continuous, Starting on Sun09/14/20 at 1530, For 2 hours [facility] Medication administered onsite 0.4 ML Enoxaparin sodium 100 MG/ML Prefi lled Syringe enoxaparin sodium (LOVENOX) injection 40 mg enoxaparin sodium (LOVENOX) injection 40 mg 09/14/2020 09:00:00 AM EDT 40 mg Subcutaneous active 40 mg, Subcutaneous, Daily Standard, First dose on Sun09/14/20 at 0900, For 30 days [facility] Medication administered onsite sodium chloride 0.9 % bolus 500 mL [id number] 09/14/2020 01:45:00 AM EDT 500 mL Intravenous completed 500 mL, Intravenous, Once, On Sun09/14/20 at 0145, For 1 dose [facility] Medication administered onsite NaCl infusion 0.9 % [id number] 09/14/2020 01:45:00 AM EDT Intravenous aborted at 75 mL/hr, Intrave nous, Continuous, Starting on Sun09/14/20 at 0145, For 24 hours [facility] Medication administered onsite Melatonin 5 MG Oral Tablet melatonin tablet 5 mg melatonin t ablet 5 mg 09/13/2020 10:00:00 PM EDT 5 mg Oral aborted 5 mg, Oral, Nightly, First dose on Sun09/13/20 at 2200, For 30 days [facility] Medication administered onsite atorvastatin 40 MG Oral Tablet atorvastatin (LIPITOR) tablet 80 mg atorvastatin (LIPITOR) tablet 80 mg 09/13/2020 09:00:00 PM EDT 80 mg Oral active 80 mg, Oral, Every evening, First dose on Sun09/13/20 at 2100, For 30 days [facility] Medication administered onsite lactated ringers bolus 1,000 mL [id number] 09/13/2020 08:45:00 PM EDT 1000 mL Intravenous completed 1,000 mL , Intravenous, Once, On Sun09/13/20 at 2045, For 1 dose [facility] Medication administered onsite insulin lispro (HUMALOG) injection CUSTO MIZABLE DOSE INSULIN patients 1-32 Units [id number] 09/13/2020 06:00:00 PM EDT U Subcutaneous aborted [...] gm if only clear liquid consumed): 32 [facility] Medication administered onsite lactated ringers bolus 1,000 mL [id number] 09/13/2020 05:30:00 PM EDT 1000 mL Intravenous completed 1,000 mL , Intravenous, Once, On Sun09/13/20 at 1730, For 1 dose [facility] Medication administered onsite haloperidol lactate (HALDOL) injection 1 mg [id number] 09/13/2020 05:30:00 PM EDT 1 mg Intramuscular completed 1 mg, Intramuscular, Once, On Sun09/13/20 at 1730, For 1 dose [facility] Medication administered onsite Metoprolol Tartrate 1 MG/ML [...] a medical provider and 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
[facility] Medication administered onsite Lactulose 667 MG/ML Oral Solution lactulose (CHRONULAC ) solution 45 mL lactulose (CHRONULAC) solution 45 mL 09/13/2020 05:00:00 PM EDT 45 mL Oral active 45 mL, Oral, Three Times Daily Standard , First dose (after last modification) on Sun09/13/20 at 1700, For 30 days
Titrate to 3 bowel movements daily
[facility] Medication administered onsite Insulin Glargine 100 UNT/ML [...] glucose more than 400 mg/dL: notify provider
[facility] Medication administered onsite insulin lispro (HumaLOG) injection HIGH DOSE EATING IN SULIN patients 1-22 Units [id number] 09/13/2020 01:00:00 PM EDT U Subcutaneous aborted 1-22 Units, Subcutaneous, Three Times Daily-With Meals, First dose on Sun09/13/20 at 1300, For 30 days
Nursing MUST open the 'SQ Insulin Dosing Charts' Sidebar Report, or, the Patient Summary or Summary Report within the ED.
[facility] Medication administered onsite haloperidol lactate (HALDOL) injection 1 mg [id number] 09/12/2020 10:15:00 PM EDT 1 mg Intramuscular completed 1 mg, Intramuscular, Once, On 09/12/20 at 2215, For 1 dose [facility] Medication administered onsite Insulin Glargine 100 UNT/ML [...] glucose more than 400 mg/dL: notify provider
[facility] Medication administered onsite Aspirin 81 MG Chewable Tablet aspirin chewable tablet 81 mg aspirin chewable tablet 81 mg 09/12/2020 06:45:00 PM EDT 81 mg Oral activ e 81 mg, Oral, Daily Standard, First dose on 09/12/20 at 1845, For 30 days
Chew tablet before swallowing.
[facility] Medication administered onsite insulin lispro (HumaLOG) injection MEDIU M DOSE EATING INSULIN patients 1-16 Units [id number] 09/12/2020 06:00:00 PM EDT U Subcutaneous aborted 1-16 Units, Subcutaneous, Three Times Daily-With Meals, First dose on 09/12/20 at 1800, For 30 days
Nursing MUST open the 'SQ Insulin Dosing Charts' Sidebar Report, or, the Patient Summary or Summary Report within the ED.
[facility] Medication administered onsite 1 ML Lorazepam 2 MG/ML Injection LORazepam (ATIVAN) 2 MG/ML injection LORazepam (ATIVAN) 2 MG/ML injection 09/12/2020 05:09:22 PM EDT completed Starting on 09/12/20 at 1709, For 1 dose
Dex [place]: cabinet override
[facility] Medication administered onsite Lactulose 667 MG/ML Oral Solution lactulose (CHRONULAC ) solution 30 mL lactulose (CHRONULAC) solution 30 mL 09/12/2020 05:00:00 PM EDT 30 mL Oral aborted 30 mL, Oral, Four Times Tracy ly Standard, First dose (after last modification) on 09/12/20 at 1700, For 3 days [facility] Medication administered onsite Insulin Lispro 100 UNT/ML [...] than 400 mg/dL - notify the provider.
[facility] Medication administered onsite albuterol (PROVENTIL HFA) inhaler 2 puff [id number] 09/12/2020 03:59:11 PM EDT 2 {puff} Inhalation active 2 pu ff, Inhalation, Every 6 hours PRN, Wheezing, Starting on 09/12/20 at 1559, For 9 days 16 hours
Shake the inhaler well before each spray.
[facility] Medication administered onsite metoprolol (LOPRESSOR) split tablet 12.5 mg [id number] 09/12/2020 09:00:00 AM EDT 12.5 mg Oral active 12.5 mg, Oral, 2 Times Daily, First dose on 09/12/20 at 0900, For 30 days [facility] Medication administered onsite Spironolactone 25 MG Oral Tablet spironolactone (ALDAC TONE) tablet 100 mg spironolactone (ALDACTONE) tablet 100 mg 09/12/2020 09:00:00 AM EDT 100 mg Oral aborted 100 mg, Oral, Daily Standard, First dose on 09/12/20 at 0900, For 30 days [facility] Medication administered onsite rifaximin 550 MG Oral Tablet rifAXIMin (XIFAXAN) table t 550 mg rifAXIMin (XIFAXAN) tablet 550 mg 09/12/2020 09:00:00 AM EDT 550 mg Oral active 550 mg, Oral, 2 Times Daily, First dose on 09/12/20 at 0900, For 30 days [facility] Medication administered onsite Thiamine 100 MG Oral Tablet thiamine (B-1) tablet 100 mg thiamine (B-1) tablet 100 mg 09/12/2020 09:00:00 AM EDT 100 mg Oral active 100 mg, Oral, Daily Standard, First dose on 09/12/20 at 0900, For 30 days [facility] Medication administered onsite Folic Acid 1 MG Oral Tablet folic acid (FOLVITE) table t 1 mg folic acid (FOLVITE) tablet 1 mg 09/12/2020 09:00:00 AM EDT 1 mg Oral active 1 mg, Oral, Daily Standard, First dose on 09/12/20 at 0900, For 30 days [facility] Medication administered onsite pantoprazole 40 MG Delayed Release Oral Tablet pantoprazole (PROTONIX) EC tablet 40 mg pantoprazole (PROTONIX) EC tablet 40 mg 09/12/2020 07:30:00 AM E DT 40 mg Oral active 40 mg, Ora l, Two times daily before breakfast and dinner, First dose on 09/12/20 at 0730, For 30 days
Do not crush or chew
[facility] Medication administered onsite Lactulose 667 MG/ML Oral Solution lactulose (CHRONULAC ) solution 30 mL lactulose (CHRONULAC) solution 30 mL 09/12/2020 12:39:02 AM EDT 30 mL Oral aborted 30 mL, Oral, Three Times Da lela-PRN, titrate to 3-4 BM a day, Starting on 09/12/20 at 0039, For 30 days [facility] Medication administered onsite sodium chloride infusion 0.9 % [id number] 09/11/2020 05:45:00 PM ED T 50 mL Intravenous completed Intravenous, Once, On 09/11/20 at 1745, For 1 dose
After completion of Alteplase flush line with 50 ml NS at the same rate as the Alteplase infusion.
[facility] Medication administered onsite lactated ringers bolus 500 mL [id number] 09/11/2020 05:30:00 PM EDT 500 mL Intravenous completed 500 mL, Intra venous, Once, On 09/11/20 at 1730, For 1 dose [facility] Medication administered onsite Insulin Aspart FlexPen 100 UNIT/ML Insulin Aspart FlexPen 01:00:00 AM EDT completed NETSMAR T ([facility]) Lantus SoloStar 100 UNIT/ML Lantus SoloStar 07/20/2020 01:00:00 AM EDT 25.0 {unit} completed NETSMART ([facility]) Aspirin EC 81 MG Aspirin EC 07/20/2020 01:00:00 AM EDT completed NETSMART ([facility] ) Capsaicin 0.025 % Capsaicin 07/20/2020 01:00:00 AM EDT completed [facility]SMART ([facility] ) Ergocal 2500 UNIT Ergocal 07/20/2020 01:00:00 AM EDT completed [facility]SMART ([facility]) Folic Acid 1 MG Folic Acid 07/20/2020 01:00:00 AM EDT completed [facility]SMART ([facility]) Lactulose 10 GM/15ML Lactulose 07/20/2020 01:00:00 AM EDT 40.0 { ml} completed [facility]SMART ([facility]) Metoprolol Tartrate 25 MG Metoprolol Tartrate 07/20/2020 01:00:00 A M EDT 0.5 {tablet} completed [facility]SMART ([facility]) Multi Vitamin Multi Vitamin 07/20/2020 01:00:00 AM EDT completed NETSMART ([facility] ) Pantoprazole Sodium 40 MG Pantoprazole Sodium 07/20/2020 01:00:00 AM E DT completed [facility]SMART ([facility]) Pregabalin 150 MG Pregabalin 07/20/2020 01:00:00 AM EDT completed [facility]SMART ([facility] ) Xifaxan 550 MG Xifaxan 07/20/2020 01:00:00 AM EDT completed [facility]SMART ([facility]) Spironolactone 100 MG Spironolactone 07/20/2020 01:00:00 AM EDT completed [facility]SMART ([facility]) Thiamine HCl 100 MG Thiamine HCl 07/20/2020 01:00:00 AM EDT completed [facility]SMART ([facility]) oxyCODONE HCl 5 MG oxyCODONE HCl 07/20/2020 01:00:00 AM EDT completed [facility]SMART ([facility]) Spironolactone 100 MG Oral Tablet Spironolactone 100 M G Oral Tablet (ALDACTONE) Spironolactone 100 MG Oral Tablet (ALDACTONE) 03/11/2020 12:00:00 AM EST 100 mg Oral active Take 1 tablet by mouth d [facility] Furosemide 40 MG Oral Tablet Furosemide 40 MG Oral Tab let (LASIX) Furosemide 40 MG Oral Tablet (LASIX) 03/11/2020 12:00:00 AM EST 40 mg Oral active Take 1 tablet by mouth daily [facility] Insulin Glargine 100 UNT/ML Injectable S [...] glucose more than 400 mg/dL: notify provider
[facility] Medication administered onsite Furosemide 40 MG Oral Tablet furosemide (LASIX) tablet 40 mg furosemide (LASIX) tablet 40 mg 03/09/2020 09:00:00 AM EST 40 mg Oral activ e 40 mg, Oral, Daily Standard, First dose on Sun03/09/20 at 0900, For 30 days [facility] Medication administered onsite Spironolactone 25 MG Oral Tablet spironolactone (ALDAC TONE) tablet 100 mg spironolactone (ALDACTONE) tablet 100 mg 03/09/2020 09:00:00 AM EST 100 mg Oral active 100 mg, Oral, Daily Standard, First dose on Sun03/09/20 at 0900, For 30 days [facility] Medication administered onsite Insulin Glargine 100 UNT/ML [...] glucose more than 400 mg/dL: notify provider
[facility] Medication administered onsite Lactulose 667 MG/ML Oral Solution lactulose (CHRONULAC ) solution 30 mL lactulose (CHRONULAC) solution 30 mL 03/08/2020 01:45:00 PM EST 30 mL Oral completed 30 mL, Oral, Every 6 hours, First dose (after last reorder) on Sun03/08/20 at 1345, For 1 dose
Titrate to 3-4 bowel movements per day
[facility] Medication administered onsite furosemide (LASIX) injection 40 mg [id number] 03/08/2020 05:45:00 AM EST 40 mg Intravenous completed 40 mg, I ntravenous, Once, Sun03/08/20 at 0545, For 1 dose
Notify provider if systolic blood pressure less than: 90 [facility] Medication administered onsite Acetaminophen 325 MG Oral [...] mg from all sources in 24 hours.
[facility] Medication administered onsite Docusate Sodium 100 MG Oral Capsule docusate sodium (C OLACE) capsule 100 mg docusate sodium (COLACE) capsule 100 mg 03/07/2020 09:00:00 AM EST 100 mg Oral active 100 mg, Oral, 2 Times Daily, First dose on 03/07/20 at 0900, For 30 days [facility] Medication administered onsite rifaximin 550 MG Oral Tablet rifAXIMin (XIFAXAN) table t 550 mg rifAXIMin (XIFAXAN) tablet 550 mg 03/07/2020 09:00:00 AM EST 550 mg Oral active 550 mg, Oral, 2 Times Daily, First dose on 03/07/20 at 0900, For 30 days [facility] Medication administered onsite Thiamine 100 MG Oral Tablet thiamine (B-1) tablet 100 mg thiamine (B-1) tablet 100 mg 03/07/2020 09:00:00 AM EST 100 mg Oral active 100 mg, Oral, Daily Standard, First dose on 03/07/20 at 0900, For 30 days [facility] Medication administered onsite Capsaicin 1 MG/ML Topical Cream capsaicin (CAPZASIN HP ) 0.1 % topical cream capsaicin (CAPZASIN HP) 0.1 % topical cream 03/07/2020 09:00:00 AM EST Topical active Topical, Three Times Daily Standard, First dose on 03/07/20 at 0900, For 30 days
Apply to back, legs and shoulders
[facility] Medication administered onsite NaCl infusion 0.9 % [id number] 03/07/2020 09:00:00 AM EST Intravenous aborted at 100 mL/hr, Intrav enous, Continuous, Starting 03/07/20 at 0900, For 24 hours [facility] Medication administered onsite 0.4 ML Enoxaparin sodium [...] hours after epidural catheter has been removed.
[facility] Medication administered onsite Lisinopril 5 MG Oral Tablet lisinopril (PRINIVIL,ZESTR IL) tablet 5 mg lisinopril (PRINIVIL,ZESTRIL) tablet 5 mg 03/07/2020 09:00:00 AM EST 5 mg Or al active 5 mg, Oral, Daily Standard, Fir st dose on 03/07/20 at 0900, For 30 days [facility] Medication administered onsite metoprolol (LOPRESSOR) split tablet 12.5 mg [id number] 03/07/2020 09:00:00 AM EST 12.5 mg Oral active 12.5 mg, Oral, Daily Standard, First dose (after last modification) on 03/07/20 at 0900, For 30 days [facility] Medication administered onsite insulin lispro (HumaLOG) injection MEDIU M DOSE EATING INSULIN patients 1-16 Units [id number] 03/07/2020 08:00:00 AM EST U Subcutaneous active 1-16 Units, Subcutaneous, Three Times Daily-With Meals, First dose on 03/07/20 at 0800, For 30 days
Nursing MUST open the 'SQ Insulin Dosing Charts' Sidebar Report, or, the Patient Summary or Summary Report within the ED.
[facility] Medication administered onsite Ceftriaxone 2000 MG Injection cefTRIAXone (ROCEPHIN) I VPB (premix) 2 g cefTRIAXone (ROCEPHIN) IVPB (premix) 2 g 03/06/2020 11:15:00 PM EST 2 g Intravenous completed 2 g, Intraven ous, at 100 mL/hr, Every 24 hours, First dose (after last modification) on 03/06/20 at 2315, For 1 dose
Discouraged Uses: Empiric treatment of post-surgical meningitis (ceftazidime preferred)
[facility] Medication administered onsite Lactulose 667 MG/ML Oral Solution lactulose (CHRONULAC ) solution 40 mL lactulose (CHRONULAC) solution 40 mL 03/06/2020 11:00:00 PM EST 40 mL Oral aborted 40 mL, Oral, Three Times Da lela Standard, First dose (after last modification) on 03/06/20 at 2300, For 30 days
Titrate to 3-4 bowel movements per day
[facility] Medication administered onsite NaCl infusion 0.9 % [id number] 03/06/2020 10:00:00 PM EST Intravenous aborted at 100 mL/hr, Intrav enous, Continuous, Starting 03/06/20 at 2200, For 24 hours [facility] Medication administered onsite Insulin Glargine 100 UNT/ML [...] glucose more than 400 mg/dL: notify provider
[facility] Medication administered onsite furosemide (LASIX) injection 20 mg [id number] 03/06/2020 10:00:00 PM EST 20 mg Intravenous completed 20 mg, I ntravenous, Once, 03/06/20 at 2200, For 1 dose
Notify provider if systolic blood pressure less than: 100 [facility] Medication administered onsite ondansetron (ZOFRAN) injection 4 mg [id number] 03/06/2020 09:57:5 5 PM EST 4 mg Intravenous active 4 mg, In travenous, Every 8 hours PRN, Nausea, Vomiting, Starting 03/06/20 at 2157, For 30 days [facility] Medication administered onsite Oxycodone Hydrochloride 5 MG [...] only) require Pain Service consultation and approval.
[facility] Medication administered onsite Glucagon 1 MG Injection glucagon (human recombinant) ( GLUCAGEN) injection 1 mg glucagon (human recombinant) (GLUCAGEN) injection 1 mg 03/06/2020 09:52:55 PM EST 1 mg Intramuscular active 1 mg, Intramuscular, PRN, for glucose <55 without IV access, Starting 03/06/20 at 2152, For 30 days [facility] Medication administered onsite dextrose 50 % IV solution 25 mL [id number] 03/06/2020 09:52:[address] 25 mL Intravenous active 25 mL, Intrav enous, PRN, Other, blood glucose <55, Starting 03/06/20 at 2152, For 30 days
Not for midline administration.
[facility] Medication administered onsite Glucose 0.417 MG/MG Oral Gel glucose (GLUTOSE) 40 % or al gel 15 g glucose (GLUTOSE) 40 % oral gel 15 g 03/06/2020 09:52:55 PM EST 15 g Oral active 15 g, Oral, PRN, Low blood s ugar, for gluose 55-69 mg/dl and able to take PO, Starting 03/06/20 at 2152, For 30 days [facility] Medication administered onsite Acetaminophen 325 MG Oral [...] mg from all sources in 24 hours.
[facility] Medication administered onsite 3 ML Insulin Glargine 100 UNT/ML Pen Inj cma Insulin Glargine 100 UNIT/ML Subcutaneous Solution Pen-injector (LANTUS SOLOSTAR) Insulin Glargine 100 UNIT/ML Subcutaneous Solution Pen-injector (LANTUS SOLOSTAR) 40 U Subcutaneous aborted Inject 40 Units i nto the skin nightly [facility] 3 ML Insulin, Aspart, Human 100 UNT/ML P en Injector Insulin Aspart 100 UNIT/ML Subcutaneous Solution Pen-injector (NOVOLOG FLEXPEN) Insulin Aspart 100 UNIT/ML Subcutaneous Solution Pen-injector (NOVOLOG FLEXPEN) Subcutaneous aborted Inject into the skin Three times daily before meals Per sliding scale [facility] Insurance Providers Payer name Policy type / Coverage type Policy ID Covered libertarian ID Covered libertarian's relationship to coffey Policy [place] Plan Information OTHER B [id number] Self [id number] [facility] [employer] [place] Plan/ [id number] Self [id number] OTHER B [id number] Self [id number] OTHER B [id number] Self [id number] [place]/136E O [id number] S [id number] OPT[employer] [place] O [id number] S [id number] VA [facility] OPTUM [id number] SP [id number] WPS MV-VAPCCC [place] [id number] SP [id number] [place] O [id number] S [id number] COMM[employer]CIAL GENERIC [id number] [place] [id number] COMMERCIAL GENERIC [id number] [id number] OPTUM [facility] [id number] SP [id number] 'S ADMINISTRATION [id number] SP [id number] OTHER B Self OTHER B [id number] Self [id number] 'S ADMINISTRATION [id number] SP [id number] Problems, Conditions, and Diagnoses Code Display Name Description Problem Type Effective Dates Data Source(s) I63.9 Cerebral infarction, unspecified Cerebral infarc tion, unspecified Diagnosis 09/11/2020 05:05:41 PM EDT [facility] hepatic encephalopaty, rhabdo, AMS hepatic encep halopaty, rhabdo, AMS Diagnosis 03/06/2020 07:53:00 PM EST [facility] 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 terminal block assembler (cu rrent) use of insulin Problem 07/14/2020 01:00:00 AM [facility] I50.9 Heart failure, unspecified Heart failure, unspecified Problem 07/14/2020 01:00:00 AM EDT [facility] ([facility] ) I48.0 Paroxysmal atrial fibrillation Paroxysmal atrial fibri llation Problem 07/14/2020 01:00:00 AM EDT [facility] ([facility] ) K74.60 Unspecified cirrhosis of liver Unspecified cirrhosis o f liver Problem 07/14/2020 01:00:00 AM EDT [facility] ([facility] ) I25.10 Atherosclerotic heart diseas e of [place] coronary artery without angina pectoris Atherosclerotic heart disease of [place] coronary artery without angina pectoris Problem 07/14/2020 01:00:00 AM EDT [facility] ([facility]) J44.1 Chronic obstructive pulmonary disease wi th (acute) exacerbation Chronic obstructive pulmonary disease with (acute) exacerbation Problem 07/14/2020 01:00:00 AM EDT [facility] ([facility] ) Z79.01 prison (current) use of anticoagulant s terminal block assembler (current) use of anticoagulants Problem 07/14/2020 01:00:00 AM EDT [facility] ([facility]) E11.9 Type 2 diabetes mellitus without complic ations Type 2 diabetes mellitus without complications Problem 07/14/2020 01:00:00 AM EDT [facility] ([facility]) Surgeries/Procedures Procedure Description Date Indications Data Source(s) POCT GLUCOSE, DOCKED <td>POCT GLUCOSE, DOCKED</td ><td>Routine</td><td>09/20/2020 11:29 AM EDT</td><td></td><td> </td> 09/20/2020 11:29:00 AM [facility] POCT GLUCOSE, DOCKED <td>POCT GLUCOSE, DOCKED</td ><td>Routine</td><td>09/20/2020 7:44 AM EDT</td><td></td><td> </td> 09/20/2020 07:44:00 AM [facility] BASIC METABOLIC PANEL CALCIUM TOTAL <td>BASIC METABOLI C PANEL</td><td>Routine</td><td>09/20/2020 3:01 AM EDT</td><td></td><td> </td> 09/20/2020 03:01:00 AM [facility] GLUCOSE QUANTITATIVE BLOOD XCPT REAGENT STRIP <td>POCT GLUCOSE, DOCKED</td><td>Routine</td><td>09/19/2020 10:15 PM EDT</td><td></td><td> </td> 09/19/2020 10:15:00 PM [facility] GLUCOSE QUANTITATIVE BLOOD XCPT REAGENT STRIP <td>POCT GLUCOSE, DOCKED</td><td>Routine</td><td>09/19/2020 4:06 PM EDT</td><td></td><td> </td> 09/19/2020 04:06:00 PM [facility] GLUCOSE QUANTITATIVE BLOOD XCPT REAGENT STRIP <td>POCT GLUCOSE, DOCKED</td><td>Routine</td><td>09/19/2020 11:40 AM EDT</td><td></td><td> </td> 09/19/2020 11:40:00 AM [facility] GLUCOSE QUANTITATIVE BLOOD XCPT REAGENT STRIP <td>POCT GLUCOSE, DOCKED</td><td>Routine</td><td>09/19/2020 8:00 AM EDT</td><td></td><td> </td> 09/19/2020 08:00:00 AM [facility] GLUCOSE QUANTITATIVE BLOOD XCPT REAGENT STRIP <td>POCT GLUCOSE, DOCKED</td><td>Routine</td><td>09/18/2020 4:46 PM EDT</td><td></td><td> </td> 09/18/2020 04:46:00 PM [facility] GLUCOSE QUANTITATIVE BLOOD XCPT REAGENT STRIP <td>POCT GLUCOSE, DOCKED</td><td>Routine</td><td>09/18/2020 12:10 PM EDT</td><td></td><td> </td> 09/18/2020 12:10:00 PM [facility] BLOOD COUNT COMPLETE AUTOMATED <td>CBC</td><td>Routine </td><td>09/18/2020 10:01 AM EDT</td><td></td><td> </td> 09/18/2020 10:01:00 AM [facility] BASIC METABOLIC PANEL CALCIUM TOTAL <td>BASIC METABOLI C PANEL</td><td>Routine</td><td>09/18/2020 10:01 AM EDT</td><td></td><td> </td> 09/18/2020 10:01:00 AM [facility] GLUCOSE QUANTITATIVE BLOOD XCPT REAGENT STRIP <td>POCT GLUCOSE, DOCKED</td><td>Routine</td><td>09/18/2020 7:45 AM EDT</td><td></td><td> </td> 09/18/2020 07:45:00 AM [facility] GLUCOSE QUANTITATIVE BLOOD XCPT REAGENT STRIP <td>POCT GLUCOSE, DOCKED</td><td>Routine</td><td>09/17/2020 5:01 PM EDT</td><td></td><td> </td> 09/17/2020 05:01:00 PM [facility] GLUCOSE QUANTITATIVE BLOOD XCPT REAGENT STRIP <td>POCT GLUCOSE, DOCKED</td><td>Routine</td><td>09/17/2020 12:03 PM EDT</td><td></td><td> </td> 09/17/2020 12:03:00 PM [facility] GLUCOSE QUANTITATIVE BLOOD XCPT REAGENT STRIP <td>POCT GLUCOSE, DOCKED</td><td>Routine</td><td>09/17/2020 7:56 AM EDT</td><td></td><td> </td> 09/17/2020 07:56:00 AM [facility] BLOOD COUNT COMPLETE AUTOMATED <td>CBC</td><td>Routine </td><td>09/17/2020 4:12 AM EDT</td><td></td><td> </td> 09/17/2020 04:12:00 AM [facility] LACTATE <td>LACTIC ACID LEVEL, PLASM A</td><td>Routine</td><td>09/17/2020 4:12 AM EDT</td><td></td><td> </td> 09/17/2020 04:12:00 AM [facility] AMMONIA <td>AMMONIA LEVEL</td><td>Ro utine</td><td>09/17/2020 4:12 AM EDT</td><td></td><td> </td> 09/17/2020 04:12:00 AM [facility] COMPREHENSIVE METABOLIC PANEL <td>COMPREHENSIVE METABO LIC PANEL</td><td>Routine</td><td>09/17/2020 4:12 AM EDT</td><td></td><td> </td> 09/17/2020 04:12:00 AM [facility] GLUCOSE QUANTITATIVE BLOOD XCPT REAGENT STRIP <td>POCT GLUCOSE, DOCKED</td><td>Routine</td><td>09/16/2020 9:40 PM EDT</td><td></td><td> </td> 09/16/2020 09:40:00 PM [facility] GLUCOSE QUANTITATIVE BLOOD XCPT REAGENT STRIP <td>POCT GLUCOSE, DOCKED</td><td>Routine</td><td>09/16/2020 5:04 PM EDT</td><td></td><td> </td> 09/16/2020 05:04:00 PM [facility] GLUCOSE QUANTITATIVE BLOOD XCPT REAGENT STRIP <td>POCT GLUCOSE, DOCKED</td><td>Routine</td><td>09/16/2020 11:31 AM EDT</td><td></td><td> </td> 09/16/2020 11:31:00 AM [facility] GLUCOSE QUANTITATIVE BLOOD XCPT REAGENT STRIP <td>POCT GLUCOSE, DOCKED</td><td>Routine</td><td>09/16/2020 8:04 AM EDT</td><td></td><td> </td> 09/16/2020 08:04:00 AM [facility] BLOOD COUNT COMPLETE AUTO&AUTO DIFRNTL WBC COUNT <td>C BC AND DIFFERENTIAL</td><td>Routine</td><td>09/16/2020 4:54 AM EDT</td><td></td><td> </td> 09/16/2020 04:54:00 AM [facility] BASIC METABOLIC PANEL CALCIUM TOTAL <td>BASIC METABOLI C PANEL</td><td>Routine</td><td>09/16/2020 4:54 AM EDT</td><td></td><td> </td> 09/16/2020 04:54:00 AM [facility] GLUCOSE QUANTITATIVE BLOOD XCPT REAGENT STRIP <td>POCT GLUCOSE, DOCKED</td><td>Routine</td><td>09/15/2020 4:24 PM EDT</td><td></td><td> </td> 09/15/2020 04:24:00 PM [facility] EKG 12-LEAD - CMAXX REPORT <td>EKG 12-LEAD - CMAXX REPORT</td><td></td><td>09/15/2020 12:40 PM EDT</td><td></td><td></td> 09/15/2020 12:40:03 PM [facility] EKG 12-LEAD - CMAXX REPORT <td>EKG 12-LEAD - CMAXX REPORT</td><td></td><td>09/15/2020 12:40 PM EDT</td><td></td><td></td> 09/15/2020 12:40:03 PM [facility] EKG 12-LEAD <td>EKG 12-LEAD</td><td>Rout ine</td><td>09/15/2020 12:40 PM EDT</td><td></td><td> </td> 09/15/2020 12:40:03 PM [facility] PROCALCITONIN (PCT) <td>PROCALCITONIN</td><td>Ro utine</td><td>09/15/2020 11:11 AM EDT</td><td></td><td> </td> 09/15/2020 11:11:00 AM [facility] LACTATE <td>LACTIC ACID LEVEL, PLASM A</td><td>Timed</td><td>09/15/2020 11:11 AM EDT</td><td></td><td> </td> 09/15/2020 11:11:00 AM [facility] GLUCOSE QUANTITATIVE BLOOD XCPT REAGENT STRIP <td>POCT GLUCOSE, DOCKED</td><td>Routine</td><td>09/15/2020 10:47 AM EDT</td><td></td><td> </td> 09/15/2020 10:47:00 AM [facility] LACTATE <td>LACTIC ACID LEVEL, PLASM A</td><td>Timed</td><td>09/15/2020 9:11 AM EDT</td><td></td><td> </td> 09/15/2020 09:11:00 AM [facility] GLUCOSE QUANTITATIVE BLOOD XCPT REAGENT STRIP <td>POCT GLUCOSE, DOCKED</td><td>Routine</td><td>09/15/2020 7:15 AM EDT</td><td></td><td> </td> 09/15/2020 07:15:00 AM [facility] BLOOD COUNT COMPLETE AUTO&AUTO DIFRNTL WBC COUNT <td>C BC AND DIFFERENTIAL</td><td>Routine</td><td>09/15/2020 4:21 AM EDT</td><td></td><td> </td> 09/15/2020 04:21:00 AM [facility] LACTATE <td>LACTIC ACID LEVEL, PLASM A</td><td>Timed</td><td>09/15/2020 4:21 AM EDT</td><td></td><td> </td> 09/15/2020 04:21:00 AM [facility] BASIC METABOLIC PANEL CALCIUM TOTAL <td>BASIC METABOLI C PANEL</td><td>Routine</td><td>09/15/2020 4:21 AM EDT</td><td></td><td> </td> 09/15/2020 04:21:00 AM [facility] LACTATE <td>LACTIC ACID LEVEL, PLASM A</td><td>Timed</td><td>09/14/2020 9:14 PM EDT</td><td></td><td> </td> 09/14/2020 09:14:00 PM [facility] GLUCOSE QUANTITATIVE BLOOD XCPT REAGENT STRIP <td>POCT GLUCOSE, DOCKED</td><td>Routine</td><td>09/14/2020 9:12 PM EDT</td><td></td><td> </td> 09/14/2020 09:12:00 PM [facility] GLUCOSE QUANTITATIVE BLOOD XCPT REAGENT STRIP <td>POCT GLUCOSE, DOCKED</td><td>Routine</td><td>09/14/2020 4:58 PM EDT</td><td></td><td> </td> 09/14/2020 04:58:00 PM [facility] LACTATE <td>LACTIC ACID LEVEL, PLASM A</td><td>Timed</td><td>09/14/2020 3:56 PM EDT</td><td></td><td> </td> 09/14/2020 03:56:00 PM [facility] CREATINE KINASE TOTAL <td>CK</td><td>Routine</td>< td>09/14/2020 3:56 PM EDT</td><td></td><td> </td> 09/14/2020 03:56:00 PM [facility] XR CHEST FRONTAL ONLY [id number] <td>XR CHEST FRONTAL ONLY [id number]</td><td>Routine</td><td>09/14/2020 2:17 PM EDT</td><td></td><td> </td> 09/14/2020 02:17:00 PM [facility] GLUCOSE QUANTITATIVE BLOOD XCPT REAGENT STRIP <td>POCT GLUCOSE, DOCKED</td><td>Routine</td><td>09/14/2020 12:41 PM EDT</td><td></td><td> </td> 09/14/2020 12:41:00 PM [facility] LACTATE <td>LACTIC ACID LEVEL, PLASM A</td><td>Timed</td><td>09/14/2020 12:25 PM EDT</td><td></td><td> </td> 09/14/2020 12:25:00 PM [facility] GLUCOSE QUANTITATIVE BLOOD XCPT REAGENT STRIP <td>POCT GLUCOSE, DOCKED</td><td>Routine</td><td>09/14/2020 11:41 AM EDT</td><td></td><td> </td> 09/14/2020 11:41:00 AM [facility] GLUCOSE QUANTITATIVE BLOOD XCPT REAGENT STRIP <td>POCT GLUCOSE, DOCKED</td><td>Routine</td><td>09/14/2020 11:24 AM EDT</td><td></td><td> </td> 09/14/2020 11:24:00 AM [facility] GLUCOSE QUANTITATIVE BLOOD XCPT REAGENT STRIP <td>POCT GLUCOSE, DOCKED</td><td>Routine</td><td>09/14/2020 11:00 AM EDT</td><td></td><td> </td> 09/14/2020 11:00:00 AM [facility] GLUCOSE QUANTITATIVE BLOOD XCPT REAGENT STRIP <td>POCT GLUCOSE, DOCKED</td><td>Routine</td><td>09/14/2020 10:56 AM EDT</td><td></td><td> </td> 09/14/2020 10:56:00 AM [facility] LACTATE <td>LACTIC ACID LEVEL, PLASM A</td><td>Timed</td><td>09/14/2020 7:54 AM EDT</td><td></td><td> </td> 09/14/2020 07:54:00 AM [facility] GLUCOSE QUANTITATIVE BLOOD XCPT REAGENT STRIP <td>POCT GLUCOSE, DOCKED</td><td>Routine</td><td>09/14/2020 7:26 AM EDT</td><td></td><td> </td> 09/14/2020 07:26:00 AM [facility] BLOOD COUNT COMPLETE AUTO&AUTO DIFRNTL WBC COUNT <td>C BC AND DIFFERENTIAL</td><td>Routine</td><td>09/14/2020 4:42 AM EDT</td><td></td><td> </td> 09/14/2020 04:42:00 AM [facility] LACTATE <td>LACTIC ACID LEVEL, PLASM A</td><td>Timed</td><td>09/14/2020 4:42 AM EDT</td><td></td><td> </td> 09/14/2020 04:42:00 AM [facility] AMMONIA <td>AMMONIA LEVEL</td><td>Ro utine</td><td>09/14/2020 4:42 AM EDT</td><td></td><td> </td> 09/14/2020 04:42:00 AM [facility] BASIC METABOLIC PANEL CALCIUM TOTAL <td>BASIC METABOLI C PANEL</td><td>Routine</td><td>09/14/2020 4:42 AM EDT</td><td></td><td> </td> 09/14/2020 04:42:00 AM [facility] URNLS DIP STICK/TABLET REAGENT AUTO MICROSCOPY <td>URI NALYSIS WITH MICROSCOPIC</td><td>Routine</td><td>09/14/2020 12:33 AM EDT</td><td></td><td> </td> 09/14/2020 12:33:00 AM [facility] LACTATE <td>LACTIC ACID LEVEL, PLASM A</td><td>Timed</td><td>09/14/2020 12:27 AM EDT</td><td></td><td> </td> 09/14/2020 12:27:00 AM [facility] GLUCOSE QUANTITATIVE BLOOD XCPT REAGENT STRIP <td>POCT GLUCOSE, DOCKED</td><td>Routine</td><td>09/13/2020 10:50 PM EDT</td><td></td><td> </td> 09/13/2020 10:50:00 PM [facility] ACETONE/OTHER KETONE BODIES SERUM QUANTITATIVE <td>BETAHYDROXYBUTYRATE</td><td>Routine</td><td>09/13/2020 9:58 PM EDT</td><td></td><td> </td> 09/13/2020 09:58:00 PM [facility] BASIC METABOLIC PANEL CALCIUM TOTAL <td>BASIC METABOLI C PANEL</td><td>Routine</td><td>09/13/2020 9:58 PM EDT</td><td></td><td> </td> 09/13/2020 09:58:00 PM [facility] GLUCOSE QUANTITATIVE BLOOD XCPT REAGENT STRIP <td>POCT GLUCOSE, DOCKED</td><td>Routine</td><td>09/13/2020 8:53 PM EDT</td><td></td><td> </td> 09/13/2020 08:53:00 PM [facility] LACTATE <td>LACTIC ACID LEVEL, PLASM A</td><td>Timed</td><td>09/13/2020 8:23 PM EDT</td><td></td><td> </td> 09/13/2020 08:23:00 PM [facility] LACTATE DEHYDROGENASE LDH <td>LACTATE DEHYDROGENASE</td><td>Routine</td><td>09/13/2020 6:39 PM EDT</td><td></td><td> </td> 09/13/2020 06:39:00 PM [facility] CULTURE BACTERIAL BLOOD AEROBIC W/ID ISOLATES <td>BLOO D CULTURE</td><td>Routine</td><td>09/13/2020 6:35 PM EDT</td><td></td><td> </td> 09/13/2020 06:35:00 PM [facility] CULTURE BACTERIAL BLOOD AEROBIC W/ID ISOLATES <td>BLOO D CULTURE</td><td>Routine</td><td>09/13/2020 6:35 PM EDT</td><td></td><td> </td> 09/13/2020 06:35:00 PM [facility] BLOOD GASES ANY COMBINATION PH PCO2 PO2 CO2 HCO3 <td>B LOOD GAS, VENOUS</td><td>Routine</td><td>09/13/2020 4:30 PM EDT</td><td></td><td> </td> 09/13/2020 04:30:00 PM [facility] GLUCOSE QUANTITATIVE BLOOD XCPT REAGENT STRIP <td>POCT GLUCOSE, DOCKED</td><td>Routine</td><td>09/13/2020 4:29 PM EDT</td><td></td><td> </td> 09/13/2020 04:29:00 PM [facility] LACTATE <td>LACTIC ACID LEVEL, PLASM A</td><td>Routine</td><td>09/13/2020 3:18 PM EDT</td><td></td><td> </td> 09/13/2020 03:18:00 PM [facility] SODIUM URINE <td>SODIUM, URINE, RANDOM</t d><td>Routine</td><td>09/13/2020 2:26 PM EDT</td><td></td><td> </td> 09/13/2020 02:26:00 PM [facility] CREATININE OTHER SOURCE <td>CREATININE, URINE, RANDOM</td><td>Routine</td><td>09/13/2020 2:26 PM EDT</td><td></td><td> </td> 09/13/2020 02:26:00 PM [facility] ECHO TTHRC R-T 2D W/WOM-MODE COMPL SPEC&COLR DOP <td>E CHOCARDIOGRAM 2D COMPLETE</td><td>Routine</td><td>09/13/2020 2:00 PM EDT</td><td></td><td> </td> 09/13/2020 02:00:45 PM [facility] ACETONE/OTHER KETONE BODIES SERUM QUANTITATIVE <td>BETAHYDROXYBUTYRATE</td><td>STAT</td><td>09/13/2020 1:51 PM EDT</td><td></td><td> </td> 09/13/2020 01:51:00 PM [facility] COMPREHENSIVE METABOLIC PANEL <td>COMPREHENSIVE METABO LIC PANEL</td><td>STAT</td><td>09/13/2020 1:51 PM EDT</td><td></td><td> </td> 09/13/2020 01:51:00 PM [facility] GLUCOSE QUANTITATIVE BLOOD XCPT REAGENT STRIP <td>POCT GLUCOSE, DOCKED</td><td>Routine</td><td>09/13/2020 1:47 PM EDT</td><td></td><td> </td> 09/13/2020 01:47:00 PM [facility] DUP-SCAN ARTL PAKO ABDL/PEL/SCROT&/RPR ORGN LMTD <td>US DOPPLER ABDOMEN PELVIS ORGANS LIMITED [id number]</td><td>Routine</td><td>09/13/2020 1:37 PM EDT</td><td></td><td> </td> 09/13/2020 01:37:14 PM [facility] GLUCOSE QUANTITATIVE BLOOD XCPT REAGENT STRIP <td>POCT GLUCOSE, DOCKED</td><td>Routine</td><td>09/13/2020 11:00 AM EDT</td><td></td><td> </td> 09/13/2020 11:00:00 AM [facility] BLOOD COUNT COMPLETE AUTO&AUTO DIFRNTL WBC COUNT <td>C BC AND DIFFERENTIAL</td><td>Routine</td><td>09/13/2020 10:59 AM EDT</td><td></td><td> </td> 09/13/2020 10:59:00 AM [facility] BASIC METABOLIC PANEL CALCIUM TOTAL <td>BASIC METABOLI C PANEL</td><td>STAT</td><td>09/13/2020 8:02 AM EDT</td><td></td><td> </td> 09/13/2020 08:02:00 AM [facility] GLUCOSE QUANTITATIVE BLOOD XCPT REAGENT STRIP <td>POCT GLUCOSE, DOCKED</td><td>Routine</td><td>09/13/2020 7:34 AM EDT</td><td></td><td> </td> 09/13/2020 07:34:00 AM [facility] GLUCOSE QUANTITATIVE BLOOD XCPT REAGENT STRIP <td>POCT GLUCOSE, DOCKED</td><td>Routine</td><td>09/13/2020 4:57 AM EDT</td><td></td><td> </td> 09/13/2020 04:57:00 AM [facility] AMMONIA <td>AMMONIA LEVEL</td><td>Ro utine</td><td>09/13/2020 4:57 AM EDT</td><td></td><td> </td> 09/13/2020 04:57:00 AM [facility] BASIC METABOLIC PANEL CALCIUM TOTAL <td>BASIC METABOLI C PANEL</td><td>Routine</td><td>09/13/2020 4:57 AM EDT</td><td></td><td> </td> 09/13/2020 04:57:00 AM [facility] MRI BRAIN BRAIN STEM W/O CONTRAST MATERIAL <td>MR BRAI N WITHOUT CONTRAST [id number]</td><td>Routine</td><td>09/12/2020 6:15 PM EDT</td><td></td><td> </td> 09/12/2020 06:15:00 [address] [facility] CT HEAD/BRAIN W/O CONTRAST MATERIAL <td>CT HEAD WITHOU T CONTRAST [id number]</td><td>Routine</td><td>09/12/2020 5:59 PM EDT</td><td></td><td> </td> 09/12/2020 05:59:06 PM [facility] GLUCOSE QUANTITATIVE BLOOD XCPT REAGENT STRIP <td>POCT GLUCOSE, DOCKED</td><td>Routine</td><td>09/12/2020 4:18 PM EDT</td><td></td><td> </td> 09/12/2020 04:18:00 PM [facility] GLUCOSE QUANTITATIVE BLOOD XCPT REAGENT STRIP <td>POCT GLUCOSE, DOCKED</td><td>Routine</td><td>09/12/2020 3:44 PM EDT</td><td></td><td> </td> 09/12/2020 03:44:00 PM [facility] AMMONIA <td>AMMONIA LEVEL</td><td>Ro utine</td><td>09/12/2020 11:02 AM EDT</td><td></td><td> </td> 09/12/2020 11:02:00 AM [facility] BLOOD COUNT COMPLETE AUTO&AUTO DIFRNTL WBC COUNT <td>C BC AND DIFFERENTIAL</td><td>Routine</td><td>09/12/2020 5:57 AM EDT</td><td></td><td> </td> 09/12/2020 05:57:00 AM [facility] BASIC METABOLIC PANEL CALCIUM TOTAL <td>BASIC METABOLI C PANEL</td><td>Routine</td><td>09/12/2020 5:57 AM EDT</td><td></td><td> </td> 09/12/2020 05:57:00 AM [facility] CT HEAD/BRAIN W/O CONTRAST MATERIAL <td>CT HEAD WITHOU T CONTRAST 21561</td><td>Routine</td><td>09/12/2020 1:41 AM EDT</td><td></td><td> </td> 09/12/2020 01:41:04 AM [facility] SODIUM URINE <td>SODIUM, URINE, RANDOM</t d><td>Routine</td><td>09/12/2020 1:01 AM EDT</td><td></td><td> </td> 09/12/2020 01:01:00 AM [facility] OSMOLALITY URINE <td>OSMOLALITY, URINE</td><t d>Routine</td><td>09/12/2020 1:01 AM EDT</td><td></td><td> </td> 09/12/2020 01:01:00 AM [facility] RESPIRATORY PATHOGEN PANEL <td>RESPIRATORY PATHOGEN PANEL</td><td>Routine</td><td>09/11/2020 6:44 PM EDT</td><td></td><td> </td> 09/11/2020 06:44:00 PM [facility] COVID-19 PCR <td>COVID-19 PCR</td><td>Rou irina</td><td>09/11/2020 6:44 PM EDT</td><td></td><td> </td> 09/11/2020 06:44:00 PM [facility] AMMONIA <td>AMMONIA LEVEL</td><td>ST AT</td><td>09/11/2020 6:44 PM EDT</td><td></td><td> </td> 09/11/2020 06:44:00 PM [facility] POCT ID NOW COVID-19 <td>POCT ID NOW COVID-19</td ><td>Routine</td><td>09/11/2020 6:32 PM EDT</td><td></td><td> </td> 09/11/2020 06:32:[address] [facility] CT ANGIOGRAPHY NECK W/CONTRAST/NONCONTRAST <td>CT MARIBEL OGRAPHY NECK [id number]</td><td>CODE</td><td>09/11/2020 5:57 PM EDT</td><td></td><td> </td> 09/11/2020 05:57:52 PM [facility] CT ANGIOGRAPHY HEAD W/CONTRAST/NONCONTRAST <td>CT MARIBEL OGRAPHY HEAD [id number]</td><td>CODE</td><td>09/11/2020 5:57 PM EDT</td><td></td><td> </td> 09/11/2020 05:57:52 PM [facility] CT ANGIOGRAPHY CHEST W/CONTRAST/NONCONTRAST <td>CT ANG IOGRAPHY THORAX [id number]</td><td>CODE</td><td>09/11/2020 5:57 PM EDT</td><td></td><td> </td> 09/11/2020 05:57:12 [address] [facility] CT ABDOEN & PELVIS W/CONTRAST MATERIAL <td>CT ABDOMEN PELVIS WITH CONTRAST [id number]</td><td>CODE</td><td>09/11/2020 5:57 PM EDT</td><td></td><td> </td> 09/11/2020 05:57:12 PM [facility] CEREBRAL PERFUSION ANALYS CT W/BLOOD FLOW&VOLUME <td>C T CEREBRAL PERFUSION WITH CONTRAST 0042T</td><td>CODE</td><td>09/11/2020 5:56 PM EDT</td><td></td><td> </td> 09/11/2020 05:56:32 PM [facility] TROPONIN QUANTITATIVE <td>POCT ISTAT TROPONIN</td> <td>Routine</td><td>09/11/2020 5:54 PM EDT</td><td></td><td> </td> 09/11/2020 05:54:00 PM [facility] BASIC METABOLIC PANEL CALCIUM IONIZED <td>POCT ISTAT CHEM8</td><td>Routine</td><td>09/11/2020 5:52 PM EDT</td><td></td><td> </td> 09/11/2020 05:52:00 PM [facility] EKG ED PHYSICIAN INTERPRETATION <td>EKG ED PHYSICIAN INTERPRETATION</td><td>Routine</td><td>09/11/2020 5:50 PM EDT</td><td></td><td> </td> 09/11/2020 05:50:09 PM [facility] DRUGS OF ABUSE, URINE <td>DRUGS OF ABUSE, URINE</t d><td>STAT</td><td>09/11/2020 5:44 PM EDT</td><td></td><td> </td> 09/11/2020 05:44:00 PM [facility] URNLS DIP STICK/TABLET REAGENT AUTO MICROSCOPY <td>URI NALYSIS WITH MICROSCOPIC</td><td>STAT</td><td>09/11/2020 5:44 PM EDT</td><td></td><td> </td> 09/11/2020 05:44:00 PM [facility] BLOOD GASES ANY COMBINATION PH PCO2 PO2 CO2 HCO3 <td>P OCT ISTAT VBG/LAC</td><td>Routine</td><td>09/11/2020 5:39 PM EDT</td><td></td><td> </td> 09/11/2020 05:39:00 PM [facility] TROPONIN T HIGH SENSITIVITY <td>TROPONIN T HIGH SENSITIVITY</td><td>STAT</td><td>09/11/2020 5:37 PM EDT</td><td></td><td> </td> 09/11/2020 05:37:00 PM [facility] THROMBOPLASTIN TIME PARTIAL PLASMA/WHOLE BLOOD <td>PAR TIAL THROMBOPLASTIN TIME (PTT)</td><td>STAT</td><td>09/11/2020 5:37 PM EDT</td><td></td><td> </td> 09/11/2020 05:37:00 PM [facility] PROTHROMBIN TIME <td>PROTIME INR</td><td>STAT </td><td>09/11/2020 5:37 PM EDT</td><td></td><td> </td> 09/11/2020 05:37:00 PM [facility] BLOOD COUNT COMPLETE AUTO&AUTO DIFRNTL WBC COUNT <td>C BC AND DIFFERENTIAL</td><td>Routine</td><td>09/11/2020 5:37 PM EDT</td><td></td><td> </td> 09/11/2020 05:37:00 PM [facility] BLOOD TYPING ABO <td>TYPE AND SCREEN</td><td> STAT</td><td>09/11/2020 5:37 PM EDT</td><td></td><td> </td> 09/11/2020 05:37:00 PM [facility] THYROID STIMULATING HORMONE TSH <td>TSH</td><td>Routin e</td><td>09/11/2020 5:37 PM EDT</td><td></td><td> </td> 09/11/2020 05:37:00 PM [facility] HEMOGLOBIN GLYCOSYLATED A1C <td>HEMOGLOBIN A1C</td><td>Routine</td><td>09/11/2020 5:37 PM EDT</td><td></td><td> </td> 09/11/2020 05:37:00 PM [facility] CREATINE KINASE TOTAL <td>CK</td><td>STAT</td><td> 09/11/2020 5:37 PM EDT</td><td></td><td> </td> 09/11/2020 05:37:00 PM [facility] HEPATIC FUNCTION PANEL <td>HEPATIC FUNCTION PANEL A</td><td>Routine</td><td>09/11/2020 5:37 PM EDT</td><td></td><td> </td> 09/11/2020 05:37:00 PM [facility] LIPID PANEL <td>LIPID PANEL</td><td>Rout ine</td><td>09/11/2020 5:37 PM EDT</td><td></td><td> </td> 09/11/2020 05:37:00 PM [facility] BASIC METABOLIC PANEL CALCIUM TOTAL <td>BASIC METABOLI C PANEL</td><td>STAT</td><td>09/11/2020 5:37 PM EDT</td><td></td><td> </td> 09/11/2020 05:37:00 PM [facility] EKG 12-LEAD - CMAXX REPORT <td>EKG 12-LEAD - CMAXX REPORT</td><td></td><td>09/11/2020 5:33 PM EDT</td><td></td><td></td> 09/11/2020 05:33:19 PM [facility] EKG 12-LEAD - CMAXX REPORT <td>EKG 12-LEAD - CMAXX REPORT</td><td></td><td>09/11/2020 5:33 PM EDT</td><td></td><td></td> 09/11/2020 05:33:19 PM [facility] EKG 12-LEAD <td>EKG 12-LEAD</td><td>STAT </td><td>09/11/2020 5:33 PM EDT</td><td></td><td> </td> 09/11/2020 05:33:19 PM [facility] POCT GLUCOSE, DOCKED <td>POCT GLUCOSE, DOCKED</td ><td>Routine</td><td>03/10/2020 11:38 AM EST</td><td></td><td> </td> 03/10/2020 11:38:00 AM [facility] POCT GLUCOSE, DOCKED <td>POCT GLUCOSE, DOCKED</td ><td>Routine</td><td>03/10/2020 7:50 AM EST</td><td></td><td> </td> 03/10/2020 07:50:00 AM [facility] PROTHROMBIN TIME <td>PROTIME INR</td><td>Rout ine</td><td>03/10/2020 3:08 AM EST</td><td></td><td> </td> 03/10/2020 03:08:00 AM [facility] CREATINE KINASE TOTAL <td>CK</td><td>Routine</td>< td>03/10/2020 3:08 AM EST</td><td></td><td> </td> 03/10/2020 03:08:00 AM [facility] BILIRUBIN DIRECT <td>BILIRUBIN, DIRECT</td><t d>Routine</td><td>03/10/2020 3:08 AM EST</td><td></td><td> </td> 03/10/2020 03:08:00 AM [facility] COMPREHENSIVE METABOLIC PANEL <td>COMPREHENSIVE METABO LIC PANEL</td><td>Routine</td><td>03/10/2020 3:08 AM EST</td><td></td><td> </td> 03/10/2020 03:08:00 AM [facility] GLUCOSE QUANTITATIVE BLOOD XCPT REAGENT STRIP <td>POCT GLUCOSE, DOCKED</td><td>Routine</td><td>03/09/2020 9:12 PM EST</td><td></td><td> </td> 03/09/2020 09:12:00 PM [facility] GLUCOSE QUANTITATIVE BLOOD XCPT REAGENT STRIP <td>POCT GLUCOSE, DOCKED</td><td>Routine</td><td>03/09/2020 5:58 PM EST</td><td></td><td> </td> 03/09/2020 05:58:00 PM [facility] GLUCOSE QUANTITATIVE BLOOD XCPT REAGENT STRIP <td>POCT GLUCOSE, DOCKED</td><td>Routine</td><td>03/09/2020 5:02 PM EST</td><td></td><td> </td> 03/09/2020 05:02:00 PM [facility] GLUCOSE QUANTITATIVE BLOOD XCPT REAGENT STRIP <td>POCT GLUCOSE, DOCKED</td><td>Routine</td><td>03/09/2020 1:00 PM EST</td><td></td><td> </td> 03/09/2020 01:00:00 PM [facility] GLUCOSE QUANTITATIVE BLOOD XCPT REAGENT STRIP <td>POCT GLUCOSE, DOCKED</td><td>Routine</td><td>03/09/2020 11:36 AM EST</td><td></td><td> </td> 03/09/2020 11:36:00 AM [facility] GLUCOSE QUANTITATIVE BLOOD XCPT REAGENT STRIP <td>POCT GLUCOSE, DOCKED</td><td>Routine</td><td>03/09/2020 7:49 AM EST</td><td></td><td> </td> 03/09/2020 07:49:00 AM [facility] PROTHROMBIN TIME <td>PROTIME INR</td><td>Rout ine</td><td>03/09/2020 4:47 AM EST</td><td></td><td> </td> 03/09/2020 04:47:00 AM [facility] BLOOD COUNT COMPLETE AUTOMATED <td>CBC</td><td>Routine </td><td>03/09/2020 4:47 AM EST</td><td></td><td> </td> 03/09/2020 04:47:00 AM [facility] CREATINE KINASE TOTAL <td>CK</td><td>Routine</td>< td>03/09/2020 4:47 AM EST</td><td></td><td> </td> 03/09/2020 04:47:00 AM [facility] BILIRUBIN DIRECT <td>BILIRUBIN, DIRECT</td><t d>Routine</td><td>03/09/2020 4:47 AM EST</td><td></td><td> </td> 03/09/2020 04:47:00 AM [facility] COMPREHENSIVE METABOLIC PANEL <td>COMPREHENSIVE METABO LIC PANEL</td><td>Routine</td><td>03/09/2020 4:47 AM EST</td><td></td><td> </td> 03/09/2020 04:47:00 AM [facility] GLUCOSE QUANTITATIVE BLOOD XCPT REAGENT STRIP <td>POCT GLUCOSE, DOCKED</td><td>Routine</td><td>03/08/2020 9:17 PM EST</td><td></td><td> </td> 03/08/2020 09:17:00 PM [facility] GLUCOSE QUANTITATIVE BLOOD XCPT REAGENT STRIP <td>POCT GLUCOSE, DOCKED</td><td>Routine</td><td>03/08/2020 4:40 PM EST</td><td></td><td> </td> 03/08/2020 04:40:00 PM [facility] GLUCOSE QUANTITATIVE BLOOD XCPT REAGENT STRIP <td>POCT GLUCOSE, DOCKED</td><td>Routine</td><td>03/08/2020 11:46 AM EST</td><td></td><td> </td> 03/08/2020 11:46:00 AM [facility] GLUCOSE QUANTITATIVE BLOOD XCPT REAGENT STRIP <td>POCT GLUCOSE, DOCKED</td><td>Routine</td><td>03/08/2020 8:12 AM EST</td><td></td><td> </td> 03/08/2020 08:12:00 AM [facility] NEUTROPHIL CYTO AB COMMENT <td>NEUTROPHIL CYTO AB COMMENT</td><td>Routine</td><td>03/08/2020 7:04 AM EST</td><td></td><td> </td> 03/08/2020 07:04:00 AM [facility] MICROSOMAL ANTIBODIES EACH <td>LIVER KIDNEY MICROS IGG</td><td>Routine</td><td>03/08/2020 7:04 AM EST</td><td></td><td> </td> 03/08/2020 07:04:00 AM [facility] ACETAMINOPHEN, RANDOM <td>ACETAMINOPHEN, RANDOM</td><td>Routine</td><td>03/08/2020 7:04 AM EST</td><td></td><td> </td> 03/08/2020 07:04:00 AM [facility] NATRIURETIC PEPTIDE <td>PROBNP</td><td>Routine</ td><td>03/08/2020 7:04 AM EST</td><td></td><td> </td> 03/08/2020 07:04:00 AM [facility] FLUORESCENT NONNFCT AGT ANTB TITER EA ANTIBODY <td>VIRGIE TROPHIL CYTOPLASMIC ANTIBODY</td><td>Routine</td><td>03/08/2020 7:04 AM EST</td><td></td><td> </td> 03/08/2020 07:04:00 AM [facility] ZDSVL-[id number] TOTAL <td>OXOTI-9-GJNVYUUBSUB</td><td>Routine</td><td>03/08/2020 7:04 AM EST</td><td></td><td> </td> 03/08/2020 07:04:00 AM [facility] FLUORESCENT NONNFCT AGT ANTB SCREEN EA ANTIBODY <td>UT TOCHONDRIAL ANTIBODIES</td><td>Routine</td><td>03/08/2020 7:04 AM EST</td><td></td><td> </td> 03/08/2020 07:04:00 AM [facility] CERULOPLASMIN <td>CERULOPLASMIN</td><td>Ro utine</td><td>03/08/2020 7:04 AM EST</td><td></td><td> </td> 03/08/2020 07:04:00 AM [facility] ACUTE HEPATITIS PANEL <td>HEPATITIS PANEL, ACUTE</td><td>Routine</td><td>03/08/2020 7:04 AM EST</td><td></td><td> </td> 03/08/2020 07:04:00 AM [facility] GAMMAGLOBULIN IGA IGD IGG IGM EACH <td>IGG SUBCLASSES</td><td>Routine</td><td>03/08/2020 7:04 AM EST</td><td></td><td> </td> 03/08/2020 07:04:00 AM [facility] IADNA HEPATITIS C QUANTIFICATION <td>HEPATITIS C RNA, QUANTITATIVE, PCR</td><td>Routine</td><td>03/08/2020 7:04 AM EST</td><td></td><td> </td> 03/08/2020 07:04:00 AM [facility] FLUORESCENT NONNFCT AGT ANTB SCREEN EA ANTIBODY <td>AN TI-SMOOTH MUSCLE ANTIBODY</td><td>Routine</td><td>03/08/2020 7:04 AM EST</td><td></td><td> </td> 03/08/2020 07:04:00 AM [facility] HEPATITIS B SURF ANTIBODY HBSAB <td>HEPATITIS B SURFAC E ANTIBODY</td><td>Routine</td><td>03/08/2020 7:04 AM EST</td><td></td><td> </td> 03/08/2020 07:04:00 AM [facility] PROTHROMBIN TIME <td>PROTIME INR</td><td>Rout ine</td><td>03/08/2020 7:04 AM EST</td><td></td><td> </td> 03/08/2020 07:04:00 AM [facility] FIBRIN DGRADJ PRODUCTS D-DIMER QUAL/SEMIQUAN <td>D-DIM ER, QUANTITATIVE</td><td>Routine</td><td>03/08/2020 7:04 AM EST</td><td></td><td> </td> 03/08/2020 07:04:00 AM [facility] TRANSFERASE ALANINE AMINO ALT SGPT <td>ALT</td><td>Rou irina</td><td>03/08/2020 7:04 AM EST</td><td></td><td> </td> 03/08/2020 07:04:00 AM [facility] TRANSFERASE ASPARTATE AMINO AST SGOT <td>AST</td><td>R outine</td><td>03/08/2020 7:04 AM EST</td><td></td><td> </td> 03/08/2020 07:04:00 AM [facility] PROTEIN XCPT REFRACTOMETRY SERUM PLASMA/WHL BLD <td>VT OTEIN, TOTAL</td><td>Routine</td><td>03/08/2020 7:04 AM EST</td><td></td><td> </td> 03/08/2020 07:04:00 AM [facility] PHOSPHATASE ALKALINE <td>ALKALINE PHOSPHATASE</td ><td>Routine</td><td>03/08/2020 7:04 AM EST</td><td></td><td> </td> 03/08/2020 07:04:00 AM [facility] LACTATE DEHYDROGENASE LDH <td>LACTATE DEHYDROGENASE</td><td>Routine</td><td>03/08/2020 7:04 AM EST</td><td></td><td> </td> 03/08/2020 07:04:00 AM [facility] FERRITIN <td>FERRITIN LEVEL</td><td>R outine</td><td>03/08/2020 7:04 AM EST</td><td></td><td> </td> 03/08/2020 07:04:00 AM [facility] BILIRUBIN DIRECT <td>BILIRUBIN, DIRECT</td><t d>Routine</td><td>03/08/2020 7:04 AM EST</td><td></td><td> </td> 03/08/2020 07:04:00 AM [facility] BILIRUBIN TOTAL <td>BILIRUBIN, TOTAL</td><td >Routine</td><td>03/08/2020 7:04 AM EST</td><td></td><td> </td> 03/08/2020 07:04:00 AM [facility] SALICYLATE LEVEL <td>SALICYLATE LEVEL</td><td >Routine</td><td>03/08/2020 7:04 AM EST</td><td></td><td> </td> 03/08/2020 07:04:00 AM [facility] RENAL FUNCTION PANEL <td>RENAL FUNCTION PANEL</td ><td>Routine</td><td>03/08/2020 7:04 AM EST</td><td></td><td> </td> 03/08/2020 07:04:00 AM [facility] ULTRASOUND ABDOMINAL REAL TIME W/IMAGE LIMITED <td>US ABDOMEN LIMITED [id number]</td><td>Routine</td><td>03/08/2020 6:56 AM EST</td><td></td><td> </td> 03/08/2020 06:56:24 AM [facility] BLOOD COUNT COMPLETE AUTOMATED <td>CBC</td><td>Routine </td><td>03/08/2020 4:03 AM EST</td><td></td><td> </td> 03/08/2020 04:03:00 AM [facility] COMPREHENSIVE METABOLIC PANEL <td>COMPREHENSIVE METABO LIC PANEL</td><td>Routine</td><td>03/08/2020 4:03 AM EST</td><td></td><td> </td> 03/08/2020 04:03:00 AM [facility] GLUCOSE QUANTITATIVE BLOOD XCPT REAGENT STRIP <td>POCT GLUCOSE, DOCKED</td><td>Routine</td><td>03/07/2020 9:22 PM EST</td><td></td><td> </td> 03/07/2020 09:22:00 PM [facility] GLUCOSE QUANTITATIVE BLOOD XCPT REAGENT STRIP <td>POCT GLUCOSE, DOCKED</td><td>Routine</td><td>03/07/2020 7:13 PM EST</td><td></td><td> </td> 03/07/2020 07:13:00 PM [facility] GLUCOSE QUANTITATIVE BLOOD XCPT REAGENT STRIP <td>POCT GLUCOSE, DOCKED</td><td>Routine</td><td>03/07/2020 5:57 PM EST</td><td></td><td> </td> 03/07/2020 05:57:00 PM [facility] GLUCOSE QUANTITATIVE BLOOD XCPT REAGENT STRIP <td>POCT GLUCOSE, DOCKED</td><td>Routine</td><td>03/07/2020 4:37 PM EST</td><td></td><td> </td> 03/07/2020 04:37:00 PM [facility] GLUCOSE QUANTITATIVE BLOOD XCPT REAGENT STRIP <td>POCT GLUCOSE, DOCKED</td><td>Routine</td><td>03/07/2020 11:43 AM EST</td><td></td><td> </td> 03/07/2020 11:43:00 AM [facility] GLUCOSE QUANTITATIVE BLOOD XCPT REAGENT STRIP <td>POCT GLUCOSE, DOCKED</td><td>Routine</td><td>03/07/2020 8:32 AM EST</td><td></td><td> </td> 03/07/2020 08:32:00 AM [facility] ETHYL ALCOHOL LEVEL <td>ETHYL ALCOHOL LEVEL</td> <td>Routine</td><td>03/07/2020 1:45 AM EST</td><td></td><td> </td> 03/07/2020 01:45:00 AM [facility] BLOOD COUNT COMPLETE AUTOMATED <td>CBC</td><td>Routine </td><td>03/07/2020 1:34 AM EST</td><td></td><td> </td> 03/07/2020 01:34:00 AM [facility] CREATINE KINASE TOTAL <td>CK</td><td>Routine</td>< td>03/07/2020 1:34 AM EST</td><td></td><td> </td> 03/07/2020 01:34:00 AM [facility] COMPREHENSIVE METABOLIC PANEL <td>COMPREHENSIVE METABO LIC PANEL</td><td>Routine</td><td>03/07/2020 1:34 AM EST</td><td></td><td> </td> 03/07/2020 01:34:00 AM [facility] URNLS DIP STICK/TABLET REAGENT AUTO MICROSCOPY <td>URI NALYSIS WITH MICROSCOPIC</td><td>Routine</td><td>03/07/2020 1:18 AM EST</td><td></td><td> </td> 03/07/2020 01:18:00 AM [facility] ULTRASOUND ABDOMINAL REAL TIME W/IMAGE LIMITED <td>US ABDOMEN LIMITED [id number]</td><td>STAT</td><td>03/06/2020 11:31 PM EST</td><td></td><td> </td> 03/06/2020 11:31:17 PM [facility] COVID-19 PCR <td>COVID-19 PCR</td><td>Rou irina</td><td>03/06/2020 10:57 PM EST</td><td></td><td> </td> 03/06/2020 10:57:00 PM [facility] PROTHROMBIN TIME <td>PROTIME INR</td><td>STAT </td><td>03/06/2020 10:57 PM EST</td><td></td><td> </td> 03/06/2020 10:57:00 PM [facility] BLOOD COUNT COMPLETE AUTO&AUTO DIFRNTL WBC COUNT <td>C BC AND DIFFERENTIAL</td><td>Routine</td><td>03/06/2020 10:57 PM EST</td><td></td><td> </td> 03/06/2020 10:57:00 PM [facility] CREATINE KINASE TOTAL <td>CK</td><td>Routine</td>< td>03/06/2020 10:57 PM EST</td><td></td><td> </td> 03/06/2020 10:57:00 PM [facility] HEPATIC FUNCTION PANEL <td>HEPATIC FUNCTION PANEL A</td><td>STAT</td><td>03/06/2020 10:57 PM EST</td><td></td><td> </td> 03/06/2020 10:57:00 PM [facility] BASIC METABOLIC PANEL CALCIUM TOTAL <td>BASIC METABOLI C PANEL</td><td>STAT</td><td>03/06/2020 10:57 PM EST</td><td></td><td> </td> 03/06/2020 10:57:00 PM [facility] HEPATITIS C ANTIBODY <td>HEPATITIS C ANTIBODY</td ><td>Routine</td><td>03/06/2020 10:44 PM EST</td><td></td><td> </td> 03/06/2020 10:44:00 PM [facility] IADNA HEPATITIS C QUANTIFICATION <td>HEPATITIS C RNA, QUANTITATIVE, PCR</td><td>Routine</td><td>03/06/2020 10:44 PM EST</td><td></td><td> </td> 03/06/2020 10:44:00 PM [facility] GLUCOSE QUANTITATIVE BLOOD XCPT REAGENT STRIP <td>POCT GLUCOSE, DOCKED</td><td>Routine</td><td>03/06/2020 9:26 PM EST</td><td></td><td> </td> 03/06/2020 09:26:00 PM [facility] Results ID Date Data Source [id number] 11/19/2020 12:00:00 AM EDT [facility] Name Value Range Interpretation Code Description Data Maria Antonia rce(s) Supporting Document(s) SARS-CoV-2 (COVID-19) N gene [Presence] in Respiratory specimen by ARAM with probe detection Negative [facility] This lab was ordered by [facility] and reported by Julianna. ID Date Data Source [id number] 11/09/2020 12:00:00 AM EDT [facility] Name Value Range Interpretation Code Description Data Maria Antonia rce(s) Supporting Document(s) SARS-CoV-2 (COVID-19) RNA [Presence] in Respiratory specimen by ARAM with probe detection Negative [facility] This lab was ordered by [facility] and reported by Julianna. ID Date Data Source [id number] 10/05/2020 02:27:00 PM EDT [facility] Name Value Range Interpretation Code Description Data Maria Antonia rce(s) Supporting Document(s) SARS coronavirus 2 RNA [Presence] in Res piratory specimen by ARAM with probe detection NEGATIVE [facility] This lab was ordered by [facility] a nd reported by [facility]. ID Date Data Source [id number] 09/23/2020 10:13:52 AM EDT [facility] Name Value Range Interpretation Code Description Data Maria Antonia rce(s) Supporting Document(s) Discharge Summary [facility] [id number]/QFYhpHXIjm8YhFNgqUSj0MOhlAOFxS3FlLON3yY1bCAV2MXjCPrZeCpJcIdLh [facility] [file] m+bItgFxD9Qc+López/hZXbvT7YH5WUozK3eVWmxKg6 [file] [id number]/pearl fisherman/f97LrEc+6/vX8/DzPnyJ2SXF8lC+7v96sTX1V5k6I/z5f9 [file] AgICAgICAgICAgICAgICAgICAgICAgICAgICAgICAg ICAgICAgICAgICAgICAgICAgICAgICAgDQogICAgICAgICAgICAgICAgICAgICAgICAgICAgICAgICAg ICAgICAgICAgICAgICAgICAgICAgICAgICAgICAgICAgICAgICAgICAgICAgICAgICAgICAgICAgICAg ICAgICAgDQogICAgICAgICAgICAgICAgICAgICAgIC AgICAgICAgICAgICAgICAgICAgICAgICAgICAgICAgICAgICAgICAgICAgICAgICAgICAgICAgICAgIC AgICAgICAgICAgICAgICAgDQogICAgICAgICAgICAgICAgICAgICAgICAgICAgICAgICAgICAgICAgIC AgICAgICAgICAgICAgICAgICAgICAgICAgICAgICAg ICAgICAgICAgICAgICAgICAgICAgICAgICAgDQogICAgICAgICAgICAgICAgICAgICAgICAgICAgICAg ICAgICAgICAgICAgICAgICAgICAgICAgICAgICAgICAgICAgICAgICAgICAgICAgICAgICAgICAgICAg ICAgICAgICAgDQogICAgICAgICAgICAgICAgICAgIC AgICAgICAgICAgICAgICAgICAgICAgICAgICAgICAgICAgICAgICAgICAgICAgICAgICAgICAgICAgIC AgICAgICAgICAgICAgICAgICAgDQogICAgICAgICAgICAgICAgICAgICAgICAgICAgICAgICAgICAgIC AgICAgICAgICAgICAgICAgICAgICAgICAgICAgICAg ICAgICAgICAgICAgICAgICAgICAgICAgICAgICAgDQogICAgICAgICAgICAgICAgICAgICAgICAgICAg ICAgICAgICAgICAgICAgICAgICAgICAgICAgICAgICAgICAgICAgICAgICAgICAgICAgICAgICAgICAg ICAgICAgICAgICAgDQogICAgICAgICAgICAgICAgIC AgICAgICAgICAgICAgICAgICAgICAgICAgICAgICAgICAgICAgICAgICAgICAgICAgICAgICAgICAgIC AgICAgICAgICAgICAgICAgICAgICAgDQogICAgICAgICAgICAgICAgICAgICAgICAgICAgICAgICAgIC AgICAgICAgICAgICAgICAgICAgICAgICAgICAgICAg JYJrGHJzTKHnXUKoXZGbMNKiTPZhJDEvQVIsMGTtFBEvPSw0N9haAOApCXOiVP5iOTj4De9+DQoNCmVu QXV8kjXzvX9UVB6ir8XbVUutPTGqn2WtAQs6XS0CZXJeQCysOR0HGBapaa7GPCMzLYJtvVXGc7byWkIv DTY7DSAqGacwFE8NSPJtM4uozdQdXSNiFNVYUJqmPZ XUHDpyKPLLPAItCEYqMlAiAgBmYDLeQFEiEFLQVCS2GAFlUpRqCEQcCMRjYeXhZVVNROBfBSOhVaRkHN jaVH5Dv4GxxNTkYR2GYl6NCjXyNB9tup5XRPWxIFQeNgdODws5WFkuED8PbASdyCO6TSOsSOGJOnRjK9 xal7CySGGdJZKJMZqbMB2Tl6YqhBBtHGz+Cb7INZ2x t7TuBIm8SAHgKX3gaz3TZIlXMpCoE6LsdIfySWMmz3LhZVOoYOSHyT0qAEO4MCC3LTRtcWWnQDTgaPcf HJTBGAGrlTF9LwN9QbStUsHvKPM9FtyzFX0xCIcwFU3MFAZ7GFhrWIAnDPTpC8qUUxFzDJFaRwNekAzo EY5GOxXlS8GbtdIwmEK2KeZxQPJFXh3+DQplbmRvYm fJXpG7PTMdx9LqZWz5OU0MCEOoNTocDQ1IMCQvsJ5cDCqmXC2XDzA6VHZnPFYQUiHwG02tiOGpCDr9O7 VtYmVkZGVkRmlsZXMgPDwvTmFtZXMgWyBdDQogID4+ID4+MFiaMJ9SGDqnjaQnQWRaGf9SBFWjGOSmUF 6oZDXnGOQkK0P2fGmoBIZRZfOtE3syzigbDI4iEGTg R212aTxoafRiJLSeNGMvCh5PQWHyFJJ2MMDcjKCsYIOfBICXATxyRC3UrIBgAAP3dV2mTMicGCKsBZKf K3bYKqYvvSzeMK18qOrussDpnVTmGVc+Mz5BAI7ji0NsTRy4qbZeAZcpVDF0MAljHIRuNPObTZTqFYX7 NZZ8GLVACpJyTQJmMHXcFKnfUBRzSPLsdi9YHUOoEN Q9Cxg7EXOvKFYaIRVsDSioGOVvSSI4MHB5DIGjPAMxEE7NPtQhUTZjAHSaQOirYRIhZCNska5CDUDfHG KtXGY9UIDpZGRgAOOjEAjsYICyFAW6XzT0XYOgQCWrOI3KDfWgNJKbFNy7UGerKXOvSKBdai9QMPWpJG RjAEMgWrSuHVXsDJKsFIgtFRMjNPS1EBM2BQObUHSp QM8OAjXxYDZiBVHdNtFmBMNfIJObnx3MLCUpXAIaPTg0JvQiCFEaLNHpGVfyROJtXTX2AOQ0MNTzOLGi LI1BVlBvVVJaNrMeZPecQFNbZYRusx9ANCAnZVKnAYBwFNIoDENxEHJsDTtrZHTiMJU9SmR8TBCaODHa LY5XJfEqBMNpTmf0QaEoCLOtSDQiqh3TLTDeNEJwVO R4PtHcTNQuZPYmVAhdQFBiTRF4SFztMALvZTVsWV4VLpMhYQEtAou6GEMuFRXsOAUnje7BISJkDEEjUT YcZeNxUXKlVXVcQPxgQSFeMIFzRMCcVRNtMWAhFR4GKeLyJLZbZBUtLRMxPQLtOMKrxs0PXWQfWHB4Ln E3BRRuZGJoDBGxYMvqFQVdOZQgTYh6EAWnYBUyCG6T EnLkLAByKJK8PSzfBYDoENVxfc2JTZUtUUW2Ybp9ADRzYRRyWGIyZHleXKZpAYQeDZX4LBNtXJPaQP1N ZmDzLYWcRNK2AMQjFPJjSTIigd6GQVCpOSE7YNV5WQFwUQMyKQJfBUxrFUUbKEP8Yuh9OXGoCQCaGZ0J LxDnWJWbAAIgEBXcXAAgTFVbfb1OPOMvPFI2RpF0Bt HxLJEzCSTgXHymDPIlTBZ3ZgU0EPBsSQRmHW4CXpQdWOAqZBs9HGTgCBPuJYXdni8GOEKrLVZ9Kbx2ST CrZHLsPKJmSMkoPBZqQUR4OHivGNKvDNOsAB7KSxPsSQMsASV0RjKkUYDnKJFdlp0NJPCvQGE3YqH1OK VjLHPtSDFpHOrrIJYwLNZlOwH5KOSjVKSlCA7ACsUm GRDsXBX7JUPaKNOdIFQlpg6UURVcYEZ8Fhg1IpQuGBTuUSCnZZxtUBZhWUC2ICm7NHGwVEOgIP7XZdBj MVSoYTK2WUTtRZRhEOGakw2YKMOaHRJ2IJr7XfPvKKIjLPScHOlvGUGmQDW1YSG4OZXlVOBaMD3ADdWl SMwqAJRRGgv5KQtmS6t5XUG5Wa5QI8Uwb6ZoGDZkDL OMZKwgVK2xncXuAJEyRr0EF6qVXmv2YKH6M3SfEgCvOLXuBsFhOwIiS2B0IIKfOPsiMJJkVh6pCUHlMU rpPRAwHcXtX4InWGPlJkG0PZfnRZG6FSUfTTV3NrPjMM1RNn5FKwY6WVT9tJHjUv4VRJZjVEFBWiNdJG 9GDQo= ID Date Data Source [id number] 09/20/2020 11:45:16 AM EDT [facility] Name Value Range Interpretation Code Description Data Maria Antonia rce(s) Supporting Document(s) Glucose [Mass/volume] in Capillary blood by Glucometer 188 mg/dL 70- 140 H [facility] ID Date Data Source [id number] 09/20/2020 07:52:10 AM EDT [facility] Name Value Range Interpretation Code Description Data Maria Antonia rce(s) Supporting Document(s) Glucose [Mass/volume] in Capillary blood by Glucometer 209 mg/dL 70- 140 H [facility] ID Date Data Source [id number] [facility] Description Data Maria Antonia rce(s) Supporting Document(s) Bicarbonate [Moles/volume] in Serum 22 mmol/L 22-29 [facility] Chloride [Moles/volume] in Serum or Plasma 103 mmol/L 98-107 [facility] Creatinine [Mass/volume] in Serum or Plasma 0.93 mg/dL 0.70-1.20 [facility] Glucose [Mass/volume] in Serum or Plasma 194 mg/dL 70-140 H [facility] Potassium [Moles/volume] in Serum or Plasma 3.8 mmol/L 3.4-5.1 [facility] Sodium [Moles/volume] in Serum or Plasma 133 mmol/L 136-145 L [facility] Urea nitrogen [Mass/volume] in Serum or Plasma 16 mg/dL 8-23 [facility] Anion gap 3 in Serum or Plasma 8 mmol/L 8-15 [facility] Osmolality of Serum or Plasma by calculation 282 mosm/kg 275-300 [facility] Creatinine/Urea nitrogen [Mass Ratio] in Serum or Plasma 17 [facility] Calcium [Mass/volume] in Serum or Plasma 7.6 mg/dL 8.8-10.2 L [facility] Glomerular filtration rate/1.73 sq M pre dicted among non-blacks [Volume Rate/Area] in Serum or Plasma by Creatinine-based formula (MDRD) 88 mL/min/1.73m2 >60 [facility] Glomerular filtration rate/1.73 sq M pre dicted among blacks [Volume Rate/Area] in Serum or Plasma by Creatinine-based formula (MDRD) >60 [facility] ID Date Data Source [id number] 09/19/2020 10:21:27 PM [facility] Value Range Interpretation Code Description Data Maria Antonia rce(s) Supporting Document(s) Glucose [Mass/volume] in Capillary blood by Glucometer 194 mg/dL 70- 140 H [facility] ID Date Data Source [id number] 09/19/2020 04:11:44 PM [facility] Value Range Interpretation Code Description Data Maria Antonia rce(s) Supporting Document(s) Glucose [Mass/volume] in Capillary blood by Glucometer 325 mg/dL 70- 140 H [facility] ID Date Data Source [id number] 09/19/2020 11:43:00 AM [facility] Value Range Interpretation Code Description Data Maria Antonia rce(s) Supporting Document(s) Glucose [Mass/volume] in Capillary blood by Glucometer 301 mg/dL 70- 140 H [facility] ID Date Data Source [id number] 09/19/2020 08:46:49 AM [facility] Value Range Interpretation Code Description Data Maria Antonia rce(s) Supporting Document(s) Glucose [Mass/volume] in Capillary blood by Glucometer 126 mg/dL 70- 140 [facility] ID Date Data Source [id number] 09/18/2020 05:11:24 PM [facility] Value Range Interpretation Code Description Data Maria Antonia rce(s) Supporting Document(s) Glucose [Mass/volume] in Capillary blood by Glucometer 408 mg/dL 70- 140 [facility] ID Date Data Source [id number] 09/18/2020 12:14:51 PM [facility] Value Range Interpretation Code Description Data Maria Antonia rce(s) Supporting Document(s) Glucose [Mass/volume] in Capillary blood by Glucometer 321 mg/dL 70- 140 [facility] ID Date Data Source [id number] 09/18/2020 10:14:19 AM [facility] Value Range Interpretation Code Description Data Maria Antonia rce(s) Supporting Document(s) Leukocytes [#/volume] in Blood by Automated count 4.4 10*3/uL 4-10 [facility] Erythrocytes [#/volume] in Blood by Automated count 3.12 10*6/uL 4.6- 6.1 [facility] Hemoglobin [Mass/volume] in Blood 8.9 g/dL 13.5-18 L [facility] Hematocrit [Volume Fraction] of Blood by Automated count 27.4 % 4 1-53 L [facility] Erythrocyte mean corpuscular volume [Entitic volume] by Auto mated count 88.1 fL 80-96 [facility] Erythrocyte mean corpuscular hemoglobin [Entitic mass] by Automated count 28.7 pg 27-33 [facility] Erythrocyte mean corpuscular hemoglobin concentration [Mass/volume] by Automated count 32.6 g/dL 32.0-36.0 [facility] Erythrocyte distribution width [Ratio] by Automated count 21.5 % 11.5-14.5 H [facility] Platelets [#/volume] in Blood by Automated count 147 10*3/uL 150-400 L [facility] ID Date Data Source [id number] 09/18/2020 10:36:31 AM [facility] Name Value Range Interpretation Code Description Data Maria Antonia rce(s) Supporting Document(s) Bicarbonate [Moles/volume] in Serum 19 mmol/L 22-29 L [facility] Chloride [Moles/volume] in Serum or Plasma 103 mmol/L 98-107 [facility] Creatinine [Mass/volume] in Serum or Plasma 0.97 mg/dL 0.70-1.20 [facility] Glucose [Mass/volume] in Serum or Plasma 420 mg/dL 70-140 H [facility] Potassium [Moles/volume] in Serum or Plasma 3.8 mmol/L 3.4-5.1 [facility] Sodium [Moles/volume] in Serum or Plasma 132 mmol/L 136-145 L [facility] Urea nitrogen [Mass/volume] in Serum or Plasma 11 mg/dL 8-23 [facility] Anion gap 3 in Serum or Plasma 10 mmol/L 8-15 [facility] Osmolality of Serum or Plasma by calculation 291 mosm/kg 275-300 [facility] Creatinine/Urea nitrogen [Mass Ratio] in Serum or Plasma 11 [facility] Calcium [Mass/volume] in Serum or Plasma 8.2 mg/dL 8.8-10.2 L [facility] Glomerular filtration rate/1.73 sq M pre dicted among non-blacks [Volume Rate/Area] in Serum or Plasma by Creatinine-based formula (MDRD) 86 mL/min/1.73m2 >60 [facility] Glomerular filtration rate/1.73 sq M pre dicted among blacks [Volume Rate/Area] in Serum or Plasma by Creatinine-based formula (MDRD) >60 [facility] ID Date Data Source [id number] 09/18/2020 07:57:26 AM [facility] Name Value Range Interpretation Code Description Data Maria Antonia rce(s) Supporting Document(s) Glucose [Mass/volume] in Capillary blood by Glucometer 357 mg/dL 70- 140 H [facility] ID Date Data Source [id number] 09/17/2020 05:03:35 PM EDT [facility] Name Value Range Interpretation Code Description Data Maria Antonia rce(s) Supporting Document(s) Glucose [Mass/volume] in Capillary blood by Glucometer 243 mg/dL 70- 140 H [facility] ID Date Data Source [id number] 09/17/2020 01:18:33 PM EDT [facility] Name Value Range Interpretation Code Description Data Maria Antonia rce(s) Supporting Document(s) [facility] [id number] lbm [file] [id number]== ID Date Data Source [id number] 09/17/2020 12:07:55 PM [facility] Value Range Interpretation Code Description Data Maria Antonia rce(s) Supporting Document(s) Glucose [Mass/volume] in Capillary blood by Glucometer 218 mg/dL 70- 140 H [facility] ID Date Data Source [id number] 09/17/2020 08:01:56 AM [facility] Value Range Interpretation Code Description Data Maria Antonia rce(s) Supporting Document(s) Glucose [Mass/volume] in Capillary blood by Glucometer 280 mg/dL 70- 140 H [facility] ID Date Data Source [id number] 09/17/2020 05:11:27 AM [facility] Value Range Interpretation Code Description Data Maria Antonia rce(s) Supporting Document(s) Leukocytes [#/volume] in Blood by Automated count 5.6 10*3/uL 4-10 [facility] Erythrocytes [#/volume] in Blood by Automated count 3.05 10*6/uL 4.6- 6.1 L [facility] Hemoglobin [Mass/volume] in Blood 8.6 g/dL 13.5-18 L [facility] Hematocrit [Volume Fraction] of Blood by Automated count 26.7 % 4 1-53 L [facility] Erythrocyte mean corpuscular volume [Entitic volume] by Auto mated count 87.5 fL 80-96 [facility] Erythrocyte mean corpuscular hemoglobin [Entitic mass] by Automated count 28.2 pg 27-33 [facility] Erythrocyte mean corpuscular hemoglobin concentration [Mass/volume] by Automated count 32.2 g/dL 32.0-36.0 [facility] al Erythrocyte distribution width [Ratio] by Automated count 21.5 % 11.5-14.5 H [facility] Platelets [#/volume] in Blood by Automated count 139 10*3/uL 150-400 L [facility] ID Date Data Source [id number] 09/17/2020 05:27:54 AM EDT [facility] Name Value Range Interpretation Code Description Data Maria Antonia rce(s) Supporting Document(s) Albumin [Mass/volume] in Serum or Plasma by Bromocresol green (BCG) dye binding method 2.6 g/dL 3.5-5.2 L [facility] al Bilirubin.total [Mass/volume] in Serum or Plasma 0.8 mg/dL <1.2 [facility] Calcium [Mass/volume] in Serum or Plasma 8.5 mg/dL 8.8-10.2 L [facility] Chloride [Moles/volume] in Serum or Plasma 105 mmol/L 98-107 [facility] Creatinine [Mass/volume] in Serum or Plasma 0.94 mg/dL 0.70-1.20 [facility] Glucose [Mass/volume] in Serum or Plasma 279 mg/dL 70-140 H [facility] Alkaline phosphatase [Enzymatic activity/volume] in Serum or Plasma 114 U/L 40-129 [facility] Potassium [Moles/volume] in Serum or Plasma 3.7 mmol/L 3.4-5.1 [facility] Protein [Mass/volume] in Serum or Plasma 6.0 g/dL 6.4-8.3 L [facility] Sodium [Moles/volume] in Serum or Plasma 134 mmol/L 136-145 L [facility] Aspartate aminotransferase [Enzymatic activity/volume] in Serum or Plasma 33 U/L <40 [facility] Urea nitrogen [Mass/volume] in Serum or Plasma 9 mg/dL 8-23 [facility] Osmolality of Serum or Plasma by calculation 287 mosm/kg 275-300 [facility] Creatinine/Urea nitrogen [Mass Ratio] in Serum or Plasma 10 [facility] Bicarbonate [Moles/volume] in Serum 18 mmol/L 22-29 L [facility] Alanine aminotransferase [Enzymatic activity/volume] in Seru m or Plasma 18 U/L <41 [facility] Anion gap 3 in Serum or Plasma 11 mmol/L 8-15 [facility] Glomerular filtration rate/1.73 sq M pre dicted among non-blacks [Volume Rate/Area] in Serum or Plasma by Creatinine-based formula (MDRD) 87 mL/min/1.73m2 >60 [facility] Glomerular filtration rate/1.73 sq M pre dicted among blacks [Volume Rate/Area] in Serum or Plasma by Creatinine-based formula (MDRD) >60 [facility] ID Date Data Source [id number] 09/17/2020 05:05:13 AM [facility] Value Range Interpretation Code Description Data Maria Antonia rce(s) Supporting Document(s) Ammonia [Moles/volume] in Plasma 32 umol/L 16-60 [facility] ID Date Data Source [id number] 09/17/2020 05:02:14 AM [facility] Value Range Interpretation Code Description Data Maria Antonia rce(s) Supporting Document(s) Lactate [Moles/volume] in Serum or Plasma 2.8 mmol/l 0.5-2.2 H [facility] ID Date Data Source [id number] 09/16/2020 09:41:40 PM [facility] Value Range Interpretation Code Description Data Maria Antonia rce(s) Supporting Document(s) Glucose [Mass/volume] in Capillary blood by Glucometer 282 mg/dL 70- 140 H [facility] ID Date Data Source [id number] 09/16/2020 05:07:19 PM [facility] Value Range Interpretation Code Description Data Maria Antonia rce(s) Supporting Document(s) Glucose [Mass/volume] in Capillary blood by Glucometer 72 mg/dL 70- 140 [facility] ID Date Data Source [id number] 09/16/2020 11:34:19 AM [facility] Name Value Range Interpretation Code Description Data Maria Antonia rce(s) Supporting Document(s) Glucose [Mass/volume] in Capillary blood by Glucometer 215 mg/dL 70- 140 [facility] ID Date Data Source [id number] 09/16/2020 08:09:22 AM [facility] Name Value Range Interpretation Code Description Data Maria Antonia rce(s) Supporting Document(s) Glucose [Mass/volume] in Capillary blood by Glucometer 369 mg/dL 70- 140 [facility] ID Date Data Source [id number] 09/16/2020 05:19:01 AM [facility] Name Value Range Interpretation Code Description Data Maria Antonia rce(s) Supporting Document(s) Leukocytes [#/volume] in Blood by Automated count 5.4 10*3/uL 4-10 [facility] Erythrocytes [#/volume] in Blood by Automated count 2.83 10*6/uL 4.6- 6.1 [facility] Hemoglobin [Mass/volume] in Blood 8.3 g/dL 13.5-18 L [facility] Hematocrit [Volume Fraction] of Blood by Automated count 24.8 % 4 1-53 L [facility] Erythrocyte mean corpuscular volume [Entitic volume] by Auto mated count 87.6 fL 80-96 [facility] Erythrocyte mean corpuscular hemoglobin [Entitic mass] by Automated count 29.2 pg 27-33 [facility] Erythrocyte mean corpuscular hemoglobin concentration [Mass/volume] by Automated count 33.4 g/dL 32.0-36.0 [facility]th[facility] distribution width [Ratio] by Automated count 21.0 % 11.5-14.5 [facility] Platelets [#/volume] in Blood by Automated count 121 10*3/uL 150-400 L [facility] Differential cell count method - Blood [facility] Neutrophils/100 leukocytes in Blood by Automated count 54 % [facility] Lymphocytes/100 leukocytes in Blood by Automated count 26 % [facility] Monocytes/100 leukocytes in Blood by Automated count 15 % [facility] Eosinophils/100 leukocytes in Blood by Automated count 4 % [facility] Basophils/100 leukocytes in Blood by Automated count 1 % [facility] Neutrophils [#/volume] in Blood by Automated count 2.89 10*3/uL 1.8-7 .0 [facility] Lymphocytes [#/volume] in Blood by Automated count 1.41 10*3/uL 1.2-4 .0 [facility] Monocytes [#/volume] in Blood by Automated count 0.81 10*3/uL 0-0.8 H [facility] Eosinophils [#/volume] in Blood by Automated count 0.19 10*3/uL 0-0.5 [facility] Basophils [#/volume] in Blood by Automated count 0.08 10*3/uL 0-0.2 [facility] Nucleated erythrocytes/100 leukocytes [Ratio] in Blood by Automated count 0 /100{WBCs} 0-0 [facility] ID Date Data Source [id number] 09/16/2020 05:32:57 AM EDT [facility] Name Value Range Interpretation Code Description Data Maria Antonia rce(s) Supporting Document(s) Bicarbonate [Moles/volume] in Serum 17 mmol/L 22-29 L [facility] Chloride [Moles/volume] in Serum or Plasma 108 mmol/L 98-107 H [facility] Creatinine [Mass/volume] in Serum or Plasma 0.83 mg/dL 0.70-1.20 [facility] Glucose [Mass/volume] in Serum or Plasma 363 mg/dL 70-140 H [facility] Potassium [Moles/volume] in Serum or Plasma 3.7 mmol/L 3.4-5.1 [facility] Sodium [Moles/volume] in Serum or Plasma 136 mmol/L 136-145 [facility] Urea nitrogen [Mass/volume] in Serum or Plasma 8 mg/dL 8-23 [facility] Anion gap 3 in Serum or Plasma 11 mmol/L 8-15 [facility] Osmolality of Serum or Plasma by calculation 295 mosm/kg 275-300 [facility] Creatinine/Urea nitrogen [Mass Ratio] in Serum or Plasma 10 [facility] Calcium [Mass/volume] in Serum or Plasma 9.0 mg/dL 8.8-10.2 [facility] Glomerular filtration rate/1.73 sq M pre dicted among non-blacks [Volume Rate/Area] in Serum or Plasma by Creatinine-based formula (MDRD) >6 0 [facility] Glomerular filtration rate/1.73 sq M pre dicted among blacks [Volume Rate/Area] in Serum or Plasma by Creatinine-based formula (MDRD) >60 [facility] ID Date Data Source [id number] 09/15/2020 04:40:25 PM EDT [facility] Name Value Range Interpretation Code Description Data Maria Antonia rce(s) Supporting Document(s) Glucose [Mass/volume] in Capillary blood by Glucometer 214 mg/dL 70- 140 H [facility] ID Date Data Source [id number] 09/15/2020 01:04:30 PM EDT [facility] Name Value Range Interpretation Code Description Data Maria Antonia rce(s) Supporting Document(s) EKG [facility] [id number] jb2 [file] cardiovascular service line [file] manrique+qasZ/Dg+8yNbs3z3CrA6qP0NtFBY4xs+Z7VSaQ1OupRadlEv1n11rI1H/Mwyw0FV5iVGV4U40wx/Z En5+a9fkh5tKW9+iXyUohSWAorYcWs/w8YZFG4PlBz8n6+vyBlwAkvgqNjXkw8lYxA7MFgDAJssKAGur hw0FB7QXCbnerJ9GUv1+P5ik9n2EI+bwzxuyHrGbqm k5WICfFikPeFduMH/gxX1/R4Au+mtm0DqubuoylxMqx2dQWiwxf9lRNtaRp/7Z5iyyp7AkSogJgtjh0R /qZY1/S4+qbu4NOzCO8D86d9F8rb7kuX9Dua9xqEjw87EOt8800BsS6ez26bJ0bOt/3by3kjK4jW10DC oy7eUO6ot8Q+959cH2oqxFGBas+Om9+9nYE3vI5sOT 52TY+31c1F/e9qqedV29OI/G7c/J2Ltt8cfNiDVDYwEWqAZCpMIE2ozd+S3ZwevnWh2XNOXWoEHccCsB 7LhJkwF+rLJovdicACUfoh5BSVIhj81qJXDk869VMUsi91dJCprd2eoQlbvyDkkcGRJi0vez8hSjsbG5 xwTVyQUronFsA7Nib3VKpKrpGjXRgmw0+9kAYVB4Qe XirMhJkwF+xBIqcDX1FgnKRF+OKcrwt/eT4cX8mFse652lbzPhnavqAiP7eMGGtL4+l0Pqa0o1dhR3cN t26ispG2RLDP4bsK9TsRXI6lUnOGTXSEiKfVqYL//Tq38IatEFDNI/h0FWJDn1F2a1TB+H46gp/bR3Be TxY2Ez0la2mJMqzpffuAcL6YcIfa79yUuCpE6KgJAM kBSeb6RcPgMmLuy7oATza0iVuAM7CnrO+5dUKCPUpy/mDgmxopFHq0rSnsnmefCvYvo/eImonbZCsW66 Castañeda/2hSoxtZnnTbcUriHKy7u1oyYjj+v+N4DBj3kFcWVRkqCunnaD8qw0kf3pfmi88m+XBeKh/JGfS54u 81zfBJcasYjsyCInzKyVF6OXP4h51a5vhxTrM97Rfm fjcfvm/Mh+1a60arvX0xE09eb1RS87FVwe/xrZS2DG+Sg/TVBPt9OB9yi4IjfGyQ38Xr/FwtB/u6lPUM Jaime/5ZFrCTzAx7JpfSHLrswaqlrvWE5+Zeddy47slWhbuoPqu8p+OM+PM8TSCihm6Tpq65VwXhiEjlhb OXALHC0O0rK0PN1UWQkgI7LDioiUICs8dgQeOS9rE0 kIH8BtyERXMwk2Fe23F2qVCCeMSgudnzFJopp53OXZWnmzh62nN8jQoiZiJIf6L761jXsli6b0/ii39C Rsn2zVsu8zKjLiqOJ29+X1rAG4nvhiebahLd4I2iBc+N435CgQody5QX/VhQzlByd9sMygKv4QqT9t3h v8LiLn++h3C5vIFsDEJZMHKfiSdQDxs+J266WwftYC SPbZGXm6wvLUPPnf0T/wfWO2U4BK539bZDZ6ygdQFJTK1JyhfVYWBgkNCqPrRWtgQyyQr1ZrZlhBktoz 6fF9k++iK2NYNGdKkW+Q3qvbO2GO6QI1jX9h3r5N2uuWz5meHts8FO0794F/Mh/NoapL9PaSZe5q8FTZ q1R1NXxxk+0bx1FQww5RmGaTdb+a7ZyN6qkq+d2U/G 5N6GGY6gTTetSiLM5cgbznkUJ1Qow3m8Y4QT4z7qU3Xe1moJlohdjkREpPR4R0wK1L/Us97F/d8xylKh cWwkIY+4m9uZ55XcveSZ27X84vl46Y3vJ0bkCfps1cSbcdk/F7fAW/y1MhlHuwhrAoc/2ZHAu/T1LD5R z4+NGUmvOBJF2L87LTd9oko2hUqSr0YS+b5e+aHvd5 XNf0+Kristi+xhIL24VlvF4G1xU2aZG+r75PneTYGlNo6D02r90cvrDYvucTpvGzb/0FhNO4OC7FkVXKE0X B3FV2Up/+2EYADrZn8TzUBRMeAVBckyJMBd/+8LHWJGjrNsgUCYQdF9c0yko6s12ygG+92rdfveLhLkw 5+bjL75vvQQAeAk0Q9CJqxa2islfamq/Ih9m9iD08q 5n0l5M+wIG5vsZW0zxonS/W/K+HduxRjvme53vwQ8Ix+EW2+cjjues9u9Qdxy7q8VZv/7z8j08EF+/3+ V8GjnB10OFervha7Jm89yut1600/Z7G9s9qodiZu00Rl9g232kbL+gzY9Cc2j3m0q9r2TE+755OnF6+J [file] A+c/pSGA3O7Z+EnphB+1p5PoG3TivD++sV+QD [file] [id number] ID Date Data Source [id number] 09/15/2020 10:30:05 PM [facility] Value Range Interpretation Code Description Data Maria Antonia rce(s) Supporting Document(s) Procalcitonin [Mass/volume] in Serum or Plasma 0.06 ng/mL <0.10 [facility] (NOTE) < 0.25 ng/mL Bacterial infec tion unlikely,particularly lower respiratory tract infections.0.25 -<0.50 ng/mL Low risk for progression to severe sepsis/septic shock. Localized infection is possible. Measurement done early (<6 hours) after systemic process starts may still be low.0.50 - 2.00 ng/mL Moderate risk for progression to sepsis/septic shock. > 2.00 ng/mL High risk for progression to sepsis/septic shock. ID Date Data Source [id number] 09/15/2020 12:57:02 PM [facility] Value Range Interpretation Code Description Data Maria Antonia rce(s) Supporting Document(s) Lactate [Moles/volume] in Serum or Plasma 2.5 mmol/l 0.5-2.2 H [facility] ID Date Data Source [id number] 09/15/2020 10:53:03 AM [facility] Value Range Interpretation Code Description Data Maria Antonia rce(s) Supporting Document(s) Glucose [Mass/volume] in Capillary blood by Glucometer 341 mg/dL 70- 140 H [facility] ID Date Data Source [id number] 09/15/2020 10:01:39 AM [facility] Value Range Interpretation Code Description Data Maria Antonia rce(s) Supporting Document(s) Lactate [Moles/volume] in Serum or Plasma 2.9 mmol/l 0.5-2.2 H [facility] ID Date Data Source [id number] 09/15/2020 07:22:56 AM [facility] Value Range Interpretation Code Description Data Maria Antonia rce(s) Supporting Document(s) Glucose [Mass/volume] in Capillary blood by Glucometer 123 mg/dL 70- 140 [facility] ID Date Data Source [id number] 09/15/2020 04:53:44 AM EDT [facility] Name Value Range Interpretation Code Description Data Maria Antonia rce(s) Supporting Document(s) Leukocytes [#/volume] in Blood by Automated count 5.4 10*3/uL 4-10 [facility] Erythrocytes [#/volume] in Blood by Automated count 2.78 10*6/uL 4.6- 6.1 L [facility] Hemoglobin [Mass/volume] in Blood 8.0 g/dL 13.5-18 L [facility] Hematocrit [Volume Fraction] of Blood by Automated count 24.6 % 4 1-53 L [facility] Erythrocyte mean corpuscular volume [Entitic volume] by Auto mated count 88.6 fL 80-96 [facility] Erythrocyte mean corpuscular hemoglobin [Entitic mass] by Automated count 28.9 pg 27-33 [facility] Erythrocyte mean corpuscular hemoglobin concentration [Mass/volume] by Automated count 32.6 g/dL 32.0-36.0 [facility] distribution width [Ratio] by Automated count 21.1 % 11.5-14.5 H [facility] Platelets [#/volume] in Blood by Automated count 120 10*3/uL 150-400 L [facility] Differential cell count method - Blood [facility] Neutrophils/100 leukocytes in Blood by Automated count 47 % [facility] Lymphocytes/100 leukocytes in Blood by Automated count 33 % [facility] Monocytes/100 leukocytes in Blood by Automated count 14 % [facility] Eosinophils/100 leukocytes in Blood by Automated count 4 % [facility] Basophils/100 leukocytes in Blood by Automated count 2 % [facility] Neutrophils [#/volume] in Blood by Automated count 2.54 10*3/uL 1.8-7 .0 [facility] Lymphocytes [#/volume] in Blood by Automated count 1.79 10*3/uL 1.2-4 .0 [facility] Monocytes [#/volume] in Blood by Automated count 0.77 10*3/uL 0-0.8 [facility] Eosinophils [#/volume] in Blood by Automated count 0.22 10*3/uL 0-0.5 [facility] Basophils [#/volume] in Blood by Automated count 0.11 10*3/uL 0-0.2 [facility] Nucleated erythrocytes/100 leukocytes [Ratio] in Blood by Automated count 0 /100{WBCs} 0-0 [facility] ID Date Data Source [id number] [facility] Interpret[facility] Code Description Data Maria Antonia rce(s) Supporting Document(s) Bicarbonate [Moles/volume] in Serum 18 mmol/L 22-29 L [facility] Chloride [Moles/volume] in Serum or Plasma 111 mmol/L 98-107 H [facility] Creatinine [Mass/volume] in Serum or Plasma 0.88 mg/dL 0.70-1.20 [facility] Glucose [Mass/volume] in Serum or Plasma 80 mg/dL 70-140 [facility] Potassium [Moles/volume] in Serum or Plasma 3.7 mmol/L 3.4-5.1 [facility] Sodium [Moles/volume] in Serum or Plasma 141 mmol/L 136-145 [facility] Urea nitrogen [Mass/volume] in Serum or Plasma 9 mg/dL 8-23 [facility] Anion gap 3 in Serum or Plasma 12 mmol/L 8-15 [facility] Osmolality of Serum or Plasma by calculation 290 mosm/kg 275-300 [facility] Creatinine/Urea nitrogen [Mass Ratio] in Serum or Plasma 10 [facility] Calcium [Mass/volume] in Serum or Plasma 8.3 mg/dL 8.8-10.2 L [facility] Glomerular filtration rate/1.73 sq M pre dicted among non-blacks [Volume Rate/Area] in Serum or Plasma by Creatinine-based formula (MDRD) 90 mL/min/1.73m2 >60 [facility] Glomerular filtration rate/1.73 sq M pre dicted among blacks [Volume Rate/Area] in Serum or Plasma by Creatinine-based formula (MDRD) >60 [facility] ID Date Data Source [id number] 09/15/2020 05:04:28 AM [facility] Name Value Range Interpretation Code Description Data Maria Antonia rce(s) Supporting Document(s) Lactate [Moles/volume] in Serum or Plasma 2.3 mmol/l 0.5-2.2 H [facility] ID Date Data Source [id number] 09/14/2020 09:56:34 PM EDT [facility] Value Range Interpretation Code Description Data Maria Antonia rce(s) Supporting Document(s) Lactate [Moles/volume] in Serum or Plasma 2.1 mmol/l 0.5-2.2 [facility] ID Date Data Source [id number] 09/14/2020 09:42:35 PM [facility] Name Value Range Interpretation Code Description Data Maria Antonia rce(s) Supporting Document(s) Glucose [Mass/volume] in Capillary blood by Glucometer 250 mg/dL 70- 140 H [facility] ID Date Data Source [id number] 09/14/2020 05:00:23 PM [facility] Value Range Interpretation Code Description Data Maria Antonia rce(s) Supporting Document(s) Glucose [Mass/volume] in Capillary blood by Glucometer 283 mg/dL 70- 140 H [facility] ID Date Data Source [id number] 09/14/2020 05:09:22 PM [facility] Value Range Interpretation Code Description Data Maria Antonia rce(s) Supporting Document(s) Creatine kinase [Enzymatic activity/volume] in Serum or Plasma 199 U/L 20-200 [facility] ID Date Data Source [id number] 09/14/2020 04:56:02 PM [facility] Value Range Interpretation Code Description Data Maria Antonia rce(s) Supporting Document(s) Lactate [Moles/volume] in Serum or Plasma 2.0 mmol/l 0.5-2.2 [facility] ID Date Data Source [id number] 09/14/2020 02:46:00 PM [facility] XR CHEST FRONTAL ONLY [id number] RESULTI nterpreted by:Oseas Hughes [facility] IN[facility]: Exam: XR Chest Exam date and time: 09/14/2020 2:17 PM Age: 65 years old Clinical indication: Cerebral infarction, unspecified; Other: Agitation, elevated lactic acid TECHNIQUE: Imaging protocol: XR of the chest. Views: 1 view. COMPARISON: CT ANGIOGRAPHY THORAX [id number] 09/11/2020 5:16 PM FINDINGS: Lungs: Bilateral opacities [...] rce(s) Supporting Document(s) ID Date Data Source [id number] 09/14/2020 01:16:11 PM T [facility] Name Value Range Interpretation Code Description Data Maria Antonia rce(s) Supporting Document(s) [facility]ation [facility]POBf1dPxGDXqUc71/JSRpnJFEsd6UvCHypKQl6WJinFRGoK9BaEYD5hW3iWJP1NGpDKnLuQdYbPjQd lbm [file] 162fCEc3YGyynNl/6Ur09l4qfJq9cpvutzHIJXa8Ngn6WTW/jk0M8nBlwp79LMS9e43l6PpQ6f/zp+ m8OWzsztr1Dhr5EdfAYICOCAwXt1ZcQw58hVMK+BqR2QwOqW7jJYn8IU2vhHEcZ1+uA/WV7vQxrFnytL v+B1kbLCmDWPMn5dt0+SyWeVv+P6idLRlln/szx5Vv lmffutol0fawpxdGkDrdPfVF17T9hDCGq6+GWkvlVPMtz0tQTBgECULJvKFrZf+LB43aKi1zIA3mUj4L mDLPmaowd0igod4Eef3iOukiVtrPn3dsI254FCxlv0hcJgoZOvAgwQTC+G3i+Gg8SAoAOy7IS1Irabu+ 8mq+bJGZlOsMTdt7SI+AYzLNJonEdpExD9d7xH3d9t /y5SXVbvo0PCMop8uPmpVNHHUoRKukxrmLclhVO5PA1vVkADAdPwbgXZYH1i1YZIwImhkvXTiwkzDNYS VHkKS4dDn67SFZLf+75gsznaGtj0yFG1lB4zIt1+UN1ewVH92MQp5D1My9D6jxYIOEc//4VFqErBch23 RVzc3441ipbFrpPJKqRgnrIspyppLyohAZk8q6PBzG Gd8Mm0TzFg374H8P9P8OXnW+Qdj8BqWdcxbsWDOcELk+sN4FJ6s0AM6nEr8A0TtXs4etMYuR9JHNdcBC L9mem82WI0jm/6vU7c+eb/5jbO9NPJmZGxuKoZ2+pd+sq5WCj1vm7kuaQ2FXOA7Gl/7FlCLPp9/O9TuZ eRQqhIxobFapaCIb905vYANZ0pw3RmyYHDCXFTfVO7 Pm31ySVCEcOdD2iB2V6msLT8AaAeS+cYt+9fNmE53f2RBLwz9IMTx/Rose Mary/yo0/12HCOofT0v4N1GaWlg [file] bMuzzOu+ej70TziU5xaE3YJenxRzgsp3YSirQ1fwDj1tchrOEBO0ioRUtYTIrZJ/hspMjlJ4lGga/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 [file] 0K ID Date Data Source [id number] 09/14/2020 12:50:44 PM EDT [facility] Value Range Interpretation Code Description Data Maria Antonia rce(s) Supporting Document(s) Glucose [Mass/volume] in Capillary blood by Glucometer 186 mg/dL 70- 140 H [facility] ID Date Data Source [id number] 09/14/2020 01:22:26 PM [facility] Value Range Interpretation Code Description Data Maria Antonia rce(s) Supporting Document(s) Lactate [Moles/volume] in Serum or Plasma 3.7 mmol/l 0.5-2.2 H [facility] ID Date Data Source [id number] 09/14/2020 12:50:44 PM [facility] Value Range Interpretation Code Description Data Maria Antonia rce(s) Supporting Document(s) Glucose [Mass/volume] in Capillary blood by Glucometer 150 mg/dL 70- 140 H [facility] ID Date Data Source [id number] 09/14/2020 12:50:44 PM [facility] Value Range Interpretation Code Description Data Maria Antonia rce(s) Supporting Document(s) Glucose [Mass/volume] in Capillary blood by Glucometer 80 mg/dL 70- 140 [facility] ID Date Data Source [id number] 09/14/2020 12:50:44 PM [facility] Value Range Interpretation Code Description Data Maria Antonia rce(s) Supporting Document(s) Glucose [Mass/volume] in Capillary blood by Glucometer 55 mg/dL 70- 140 L [facility] ID Date Data Source [id number] 09/14/2020 10:59:07 AM [facility] Value Range Interpretation Code Description Data Maria Antonia rce(s) Supporting Document(s) Glucose [Mass/volume] in Capillary blood by Glucometer 52 mg/dL 70- 140 [facility] ID Date Data Source [id number] 09/14/2020 08:25:49 AM [facility] Value Range Interpretation Code Description Data Maria Antonia rce(s) Supporting Document(s) Lactate [Moles/volume] in Serum or Plasma 2.1 mmol/l 0.5-2.2 [facility] ID Date Data Source [id number] 09/14/2020 07:53:44 AM [facility] Value Range Interpretation Code Description Data Maria Antonia rce(s) Supporting Document(s) Glucose [Mass/volume] in Capillary blood by Glucometer 222 mg/dL 70- 140 H [facility] ID Date Data Source [id number] 09/14/2020 05:48:48 AM [facility] Value Range Interpretation Code Description Data Maria Antonia rce(s) Supporting Document(s) Ammonia [Moles/volume] in Plasma 48 umol/L 16-60 [facility] ID Date Data Source [id number] 09/14/2020 05:29:02 AM [facility] Value Range Interpretation Code Description Data Maria Antonia rce(s) Supporting Document(s) Leukocytes [#/volume] in Blood by Automated count 6.8 10*3/uL 4-10 [facility] Erythrocytes [#/volume] in Blood by Automated count 2.87 10*6/uL 4.6- 6.1 L [facility] Hemoglobin [Mass/volume] in Blood 8.2 g/dL 13.5-18 L [facility] Hematocrit [Volume Fraction] of Blood by Automated count 25.2 % 4 1-53 L [facility] Erythrocyte mean corpuscular volume [Entitic volume] by Auto mated count 87.7 fL 80-96 [facility] Erythrocyte mean corpuscular hemoglobin [Entitic mass] by Automated count 28.5 pg 27-33 [facility] Erythrocyte mean corpuscular hemoglobin concentration [Mass/volume] by Automated count 32.5 g/dL 32.0-36.0 [facility] E[facility]throcyte distribution width [Ratio] by Automated count 20.9 % 11.5-14.5 H [facility] Platelets [#/volume] in Blood by Automated count 124 10*3/uL 150-400 L [facility] Differential cell count method - Blood [facility] Neutrophils/100 leukocytes in Blood by Automated count 54 % [facility] Lymphocytes/100 leukocytes in Blood by Automated count 28 % [facility] Monocytes/100 leukocytes in Blood by Automated count 14 % [facility] Eosinophils/100 leukocytes in Blood by Automated count 3 % [facility] Basophils/100 leukocytes in Blood by Automated count 1 % [facility] Neutrophils [#/volume] in Blood by Automated count 3.70 10*3/uL 1.8-7 .0 [facility] Lymphocytes [#/volume] in Blood by Automated count 1.86 10*3/uL 1.2-4 .0 [facility] Monocytes [#/volume] in Blood by Automated count 0.94 10*3/uL 0-0.8 H [facility] Eosinophils [#/volume] in Blood by Automated count 0.19 10*3/uL 0-0.5 [facility] Basophils [#/volume] in Blood by Automated count 0.08 10*3/uL 0-0.2 [facility] Nucleated erythrocytes/100 leukocytes [Ratio] in Blood by Automated count 0 /100{WBCs} 0-0 [facility] ID Date Data Source [id number] 09/14/2020 05:47:18 AM EDT [facility] Name Value Range Interpretation Code Description Data Maria Antonia rce(s) Supporting Document(s) Bicarbonate [Moles/volume] in Serum 19 mmol/L 22-29 L [facility] Chloride [Moles/volume] in Serum or Plasma 105 mmol/L 98-107 [facility] Creatinine [Mass/volume] in Serum or Plasma 0.83 mg/dL 0.70-1.20 [facility] Glucose [Mass/volume] in Serum or Plasma 266 mg/dL 70-140 H [facility] Potassium [Moles/volume] in Serum or Plasma 3.9 mmol/L 3.4-5.1 [facility] Sodium [Moles/volume] in Serum or Plasma 134 mmol/L 136-145 L [facility] Urea nitrogen [Mass/volume] in Serum or Plasma 11 mg/dL 8-23 [facility] Anion gap 3 in Serum or Plasma 10 mmol/L 8-15 [facility] Osmolality of Serum or Plasma by calculation 287 mosm/kg 275-300 [facility] Creatinine/Urea nitrogen [Mass Ratio] in Serum or Plasma 14 [facility] Calcium [Mass/volume] in Serum or Plasma 8.9 mg/dL 8.8-10.2 [facility] Glomerular filtration rate/1.73 sq M pre dicted among non-blacks [Volume Rate/Area] in Serum or Plasma by Creatinine-based formula (MDRD) >6 0 [facility] Glomerular filtration rate/1.73 sq M pre dicted among blacks [Volume Rate/Area] in Serum or Plasma by Creatinine-based formula (MDRD) >60 [facility] ID Date Data Source [id number] 09/14/2020 05:45:37 AM [facility] Name Value Range Interpretation Code Description Data Maria Antonia rce(s) Supporting Document(s) Lactate [Moles/volume] in Serum or Plasma 3.0 mmol/l 0.5-2.2 H [facility] ID Date Data Source [id number] 09/14/2020 12:54:15 AM [facility] Name Value Range Interpretation Code Description Data Maria Antonia rce(s) Supporting Document(s) Color of Urine [facility] Clarity of Urine [facility] Specific gravity of Urine by Refractometry automated 1.012 1.003 -1.030 [facility] pH of Urine by Automated test strip 6.0 5.0-8.0 [facility] Protein [Mass/volume] in Urine by Automated test strip Neg [facility] Glucose [Mass/volume] in Urine by Automated test strip 50 mg/dL Neg ative [facility] Ketones [Mass/volume] in Urine by Automated test strip Neg [facility] Bilirubin.total [Presence] in Urine by Automated test strip Negative [facility] Hemoglobin [Presence] in Urine by Automated test strip Neg [facility] Leukocyte esterase [Presence] in Urine by Automated test strip Negative [facility] Nitrite [Presence] in Urine by Automated test strip Negati ve [facility] Leukocytes [#/area] in Urine sediment by Automated count 0 -5 [facility] Erythrocytes [#/area] in Urine sediment by Automated count 0-3 [facility] Epithelial cells.squamous [#/area] in Urine sediment by Automate d count [facility] ID Date Data Source [id number] 09/14/2020 01:21:26 AM [facility] Value Range Interpretation Code Description Data Maria Antonia rce(s) Supporting Document(s) Lactate [Moles/volume] in Serum or Plasma 4.1 mmol/l 0.5-2.2 [facility] Results called to and read back by ROSMERY CARPENTER RN 9E [id number] ID Date Data Source [id number] 09/14/2020 03:42:08 AM [facility] Value Range Interpretation Code Description Data Maria Antonia rce(s) Supporting Document(s) Glucose [Mass/volume] in Capillary blood by Glucometer 248 mg/dL 70- 140 [facility] ID Date Data Source [id number] 09/13/2020 10:28:59 PM [facility] Value Range Interpretation Code Description Data Maria Antonia rce(s) Supporting Document(s) History and Physical [facility] QFVLGw0sMsXRMvAz01/ZPNzqFAGsc8GfISsoLQo3WXeuEVHvF9ZkVBN1uF7jHGJ2XVqJBgVrTnSxGhBy [facility] [file] gx/7O5OczGpUd+dgphw44Gj4o17JdADBaDLAPn+AJilaHqXmcedbzSfj0UvehAt8XlwaKGnUr/OM/+SAMPLE CUTTER [file] AgICAgICAgICAgICAgICAgICAgICAgICAgICAgICAgICAgICAgICAgICAgICAgICAgICAgICAgICAgIC WjVM0HBEOlLXLsXJAmVSIeJUOvZABiIKNsYLZcXAEb ICAgICAgICAgICAgICAgICAgICAgICAgICAgICAgICAgICAgICAgICAgICAgICAgICAgICAgICAgICAg VBWuIPVcTYFrMMRsCJ3XYUYzSXHqLGVeDMXyKRDyVGNqEWYfPNJuTTIoJTYeKOHaULWoOYEmSOQjKKSa ICAgICAgICAgICAgICAgICAgICAgICAgICAgICAgIC HoDXVyWMGrZQTzEYAbXYAbCVKzTYLpIM6RCOGaYYRqSYXvEKYpDQMxEVIwLXPiZOHoBLZgZHDcMCBeSI AgICAgICAgICAgICAgICAgICAgICAgICAgICAgICAgICAgICAgICAgICAgICAgICAgICAgICAgICAgIC VoULNsXQ9CZJBoWIJjDJTpJZLsNYBbBFHlMHAkXNIk ICAgICAgICAgICAgICAgICAgICAgICAgICAgICAgICAgICAgICAgICAgICAgICAgICAgICAgICAgICAg ORUoHAPdTXHlMZCfFFOoAP6LFRWbWUNiIJJeKVXgTLApOWLeBUFsYTZuCMSoRUJaMHGrRCFdRCJfNLPv ICAgICAgICAgICAgICAgICAgICAgICAgICAgICAgIC GbFCKcOCStFJYcWGIxSIMsWCOoLPXjIMZnLN8NNSVpMFAnCXEnHJYhIPMrIURnETWyFVIyMZGiXQEhJW AgICAgICAgICAgICAgICAgICAgICAgICAgICAgICAgICAgICAgICAgICAgICAgICAgICAgICAgICAgIC BxIJFpMEYiYO5QQELkJHFnMLRjSCCsPOOgDAZdSEHs ICAgICAgICAgICAgICAgICAgICAgICAgICAgICAgICAgICAgICAgICAgICAgICAgICAgICAgICAgICAg SGWiLHIpGPDbHWEuLJCaZSPeRU3LNFLqBVTuNFYkZHSgMQZvWRIzHRKxMUTvMFQxJSVqMWUoMZCpTITy ICAgICAgICAgICAgICAgICAgICAgICAgICAgICAgIC NiQMPjTDJsRJZgNOWqXSTjVEGfETLsPCNhFYOhUD5QVLLoOVZrFXHeDSAyQNEgBVQhZSXrAATzCNXzYG AgICAgICAgICAgICAgICAgICAgICAgICAgICAgICAgICAgICAgICAgICAgICAgICAgICAgICAgICAgIC SeEGZvPMZkFDTwHX6GNN49nAHvl0L4PNNmLD0mkfk/ Wo5UBUpmryQxsRDlCL8BZkBjNQ2qoj9PMhHjCA6ejw7KTQsBMiYoH2Y9bUPjTBLjRXPODkHdF52eAZug Fp46GVrmDHEaUlZuUKx2Sv0MLpRbH6uhHTYzRyG3IENgTfN2UKMhFtM9YHErRuLmWJIqHONfTJIhIBTE SDJ5QXJgPxXvFtJjYSLtPNxiKKCYQEBeRJQyKnKqHT cyKB7Ad8OneKL5LHo+Cf4POV0jc7ZhWHs4BBRzID9fla8NCFwBVpRwO3IpndF5MSL6KIVbFo2ZUIMkAY FoyAJ5GHSyZESXGlOwQ3BboC49TAHLRn0+IYvzpjNeWliBZoI3PJPle3OmYNv5OF5KDJAyNGx9dMBoKV FZKET0UHOsiVGeKPcjzr8tgvtvSJ8BFXQ2LBxyHJDv MzWtVLOfIdq5PdOOBYwHNoCiJ8Wbp2FjDcC8ZYBjQhSwWRprQJZlDxO4AV73fKetJF2YHCPcEZWnLN43 EMB5RQNsKi7ETe3LIgSlTT5yfw1ITMDqAIFyZlvSXjg4XBimVE4EoXZiI7RjcHDwo3aDIiGzK1GPYXAf XYVrYp2IKQBtEkQcWGXzLVrdNE2mRMCkNQDLoZhglh P5JM1JLL7iyfYoZB0SPjQgMq1yCy4HHvSiM1SxD8ErVQRrMAZUBNlsBS8QFElfCO9oRW4Bo3DSrNCoaI 1xkn3AQYKlJGOxLxronf9SWhwuW3K5uRxaRPWxSWHePVJJUGquJK9VYCMtPCF4JEU4RwQmFAMVMxVjJ2 5eCF6DF6Asm16rSvO1UUGcLrGzQAucHE98cWylveMe aZBqbGzhOU3JKm9+MLjuxqLdCxsHCyakVJKEKjDqQWmJDjTfRVPcWDGnNLRbFhK0NsXeHy1ALBCmXSCq WPWrEcHlYPXwFXEuALfaYGGyTVM1BWM2ZEElWVDwFS8ZBtXvYAYrRcI3IiNbKNEnMKBrgz7HMABaFBRo IHC2SbLkWAYfVDChOLhzRFPnUGE8KXHvFHTqJMVpIV 9XKfFsXPHzBDS2ClIhDYUyBUAull1HLBPiBYFkMdp2AVMnUMMnNMYjWOcyLSUkEFS9IXCkNXDkEONiKL 5YOyUqMXFcVWPeEuYrCFIaFZUzfd1QVQKfPLNsFpFqQQPgFFOfSLErXNxgSOSfHPK8BfK0YYYhJVEjBQ 4QFaCvAMBmZKR1HvOnOFMvEJDmrw7RQXYqTAIfDXA3 YLLdABKpNZXjRJnwJGMsNNJwTSdfBWToNZStQP2LHhZcLNTfVrC2PUNxSMGlDXWson3OWXOdTTNcGlO2 DYHvALEmKYRzVDzuQYNxBANgWLZ2FJLnRSHfQU1MFhJaOBUwDsJpIAIcECGpLXMubj3NZPWiTTEgNkv7 BPPcZVJkBRGkWXffYWMvUDC7UYG2SBAoAJQtBY3JJp GkSOLvHge7CVIoWWKvMCVenu8JISHiAZIrYFa5BHHoIYKuSPGmQCgmHLKeUTFpOYGaVKApYPPsZQ3IZv GwJDDjLQWnAZitZSIkYEPeui2RKAXtBPN1RKX6WPJuECKmBNTmZGbyASBrLHPnCPZ6MBWxFTFeRR3FMc PcOAHfLFSoEMItMPNoYLDumw9OTHDyNLJ2XjMmPVIl CIXsKXKdFRurFIGoAVXyKLf9YUTeLXPgCY1SMiSiPUVxDKK4EQIlQEYjEMLdgs4KQTOcSWI5Ybu8NBUv CGBsFPUfYUsiEKHeDKV6NWF1EXQlDTXqWV4EKiWiICQfIWBjXOKsXPVuRGHigl1TMLEgOOB1KTXhFTFv AQFbJXXsWVylWHXmTVJ8WyUwSZWpQVGaEO1DBsSwWP InLAZ2NuLpNXJpVBWekb6VHIQjMYJ8LdP3TFMsJMJjGBTqVEnnTZZzSNL2Ahd7IXWzIBRqQO0DLwLuIA GlLMl1MfPiICZbHOOzvx3MUCHnFNY2QWL6JYOmVTTuKBEuMPhfIKUdGQQ9ZtM2HIFhDZGbTO7VBcPnIZ FjNZq8UrRpVVHmTBOtdi1NSAPwOVX3XYJ7QFZdNQMt HLLjZXmlZTTeYZLvUje2GGRfFXEaVS9QLgOyTWZiKvE9ZYfoHJAfJSLuad9YTAOgLOF0HUt2QALjDPEv HRUfOYt3poIqyMPxIPy2NX2PC2UnngBzFLjXGe6Gh184KSJ0DPZnBz7WG9ttJv4bCGJqWNOQWp9UVHu9 JLR9ATRsITDeGTIeTNjyXhPyChMqToElOhS3LslaOv A+HIj8ALGqUMJ6TAFbAVVfL2QcXHQ2HXTwBrO7ZXtsI9ZuOV1dUXQZQr6+DQpzdGFydHhyZWYNCjYxMj E3JNiaUCILYu4Z ID Date Data Source [id number] 09/13/2020 11:02:32 PM [facility] Name Value Range Interpretation Code Description Data Maria Antonia rce(s) Supporting Document(s) Bicarbonate [Moles/volume] in Serum 19 mmol/L 22-29 L [facility] Chloride [Moles/volume] in Serum or Plasma 105 mmol/L 98-107 [facility] Creatinine [Mass/volume] in Serum or Plasma 0.98 mg/dL 0.70-1.20 [facility] Glucose [Mass/volume] in Serum or Plasma 190 mg/dL 70-140 H [facility] Potassium [Moles/volume] in Serum or Plasma 3.9 mmol/L 3.4-5.1 [facility] Sodium [Moles/volume] in Serum or Plasma 137 mmol/L 136-145 [facility] Urea nitrogen [Mass/volume] in Serum or Plasma 14 mg/dL 8-23 [facility] Anion gap 3 in Serum or Plasma 13 mmol/L 8-15 [facility] Osmolality of Serum or Plasma by calculation 290 mosm/kg 275-300 [facility] Creatinine/Urea nitrogen [Mass Ratio] in Serum or Plasma 14 [facility] Calcium [Mass/volume] in Serum or Plasma 8.5 mg/dL 8.8-10.2 L [facility] Glomerular filtration rate/1.73 sq M pre dicted among non-blacks [Volume Rate/Area] in Serum or Plasma by Creatinine-based formula (MDRD) 86 mL/min/1.73m2 >60 [facility] Glomerular filtration rate/1.73 sq M pre dicted among blacks [Volume Rate/Area] in Serum or Plasma by Creatinine-based formula (MDRD) >60 [facility] ID Date Data Source [id number] 09/13/2020 11:02:32 PM [facility] Value Range Interpretation Code Description Data Maria Antonia rce(s) Supporting Document(s) Beta hydroxybutyrate [Moles/volume] in Serum or Plasma 0.22 mmol/L <0 .60 [facility] (NOTE) <0.60 Normal 0.60-1.50 May indicate the development of a problem >1.50 At risk for DKA ID Date Data Source [id number] 09/13/2020 08:56:11 PM [facility] Value Range Interpretation Code Description Data Maria Antonia rce(s) Supporting Document(s) Glucose [Mass/volume] in Capillary blood by Glucometer 141 mg/dL 70- 140 H [facility] ID Date Data Source [id number] 09/13/2020 09:06:54 PM [facility] Value Range Interpretation Code Description Data Maria Antonia rce(s) Supporting Document(s) Lactate [Moles/volume] in Serum or Plasma 5.4 mmol/l 0.5-2.2 [facility] Results called to and read back by Emir [place]Y ON [id number] AT [id number] [id number] ID Date Data Source [id number] 09/13/2020 07:26:03 PM [facility] Value Range Interpretation Code Description Data Maria Antonia rce(s) Supporting Document(s) Lactate dehydrogenase [Enzymatic activit y/volume] in Serum or Plasma by Lactate to pyruvate reaction 281 U/L 122-225 H [facility] ID Date Data Source [id number] 09/18/2020 10:23:36 AM [facility] Cmnt XXX-Imp : L HANDMicroorgani sm XXX Cult : No growth 5 days Name Value Range Interpretation Code Description Data Maria Antonia rce(s) Supporting Document(s) ID Date Data Source [id number] 09/18/2020 10:23:36 AM [facility] C[facility]nt XXX-Imp : R HAND 2Microorg anism XXX Cult : No growth 5 days Name Value Range Interpretation Code Description Data Maria Antonia rce(s) Supporting Document(s) ID Date Data Source [id number] 09/13/2020 04:43:44 PM [facility] Value Range Interpretation Code Description Data Maria Antonia rce(s) Supporting Document(s) pH of Venous blood 7.47 7.36-7.41 H [facility] Carbon dioxide [Partial pressure] in Venous blood 26 mmHg 40-45 L [facility] Oxygen [Partial pressure] in Venous blood 81 mmHg [facility] Base excess in Venous blood by calculation [facility] Carbon dioxide, total [Moles/volume] in Venous blood by calculat ion 20 mmol/L [facility] Oxygen saturation in Venous blood 97 % 60-85 H [facility] ID Date Data Source [id number] 09/13/2020 04:31:51 PM [facility] Name Value Range Interpretation Code Description Data Maria Antonia rce(s) Supporting Document(s) Glucose [Mass/volume] in Capillary blood by Glucometer 439 mg/dL 70- 140 H [facility] ID Date Data Source [id number] 09/13/2020 04:18:10 PM [facility] Name Value Range Interpretation Code Description Data Maria Antonia rce(s) Supporting Document(s) Lactate [Moles/volume] in Serum or Plasma 4.9 mmol/l 0.5-2.2 [facility] Results called to and read back by SUNDAR GUTIERRES RN 9E [id number] AD [id number] ID Date Data Source [id number] 09/13/2020 03:40:12 PM [facility] Name Value Range Interpretation Code Description Data Maria Antonia rce(s) Supporting Document(s) Creatinine [Mass/volume] in Urine 39.0 mg/dl [facility] ID Date Data Source [id number] 09/13/2020 03:45:02 PM [facility] Value Range Interpretation Code Description Data Maria Antonia rce(s) Supporting Document(s) Sodium [Moles/volume] in Urine 56 mmol/L [facility] Confirmed ID Date Data Source [id number] 09/13/2020 02:19:58 PM [facility] US DOPPLER ABDOMEN PELVIS ORGANS LIMITED [id number] RESULTInterpreted by:Gordon Haro, MDPROCEDURE INFORMATION: Exam: US [...] conditions. COMPARISON: CT ABDOMEN PELVIS WITH CONTRAST [id number] 09/11/2020 5:16 PM FINDINGS: Tubes, catheters and [...] rce(s) Supporting Document(s) ID Date Data Source [id number] 09/13/2020 02:51:51 PM [facility] Name Value Range Interpretation Code Description Data Maria Antonia rce(s) Supporting Document(s) Beta hydroxybutyrate [Moles/volume] in Serum or Plasma 0.17 mmol/L <0 .60 [facility] (NOTE) <0.60 Normal 0.60-1.50 May indicate the development of a problem >1.50 At risk for DKA ID Date Data Source [id number] 09/13/2020 02:51:51 PM EDT [facility] Name Value Range Interpretation Code Description Data Maria Antonia rce(s) Supporting Document(s) Albumin [Mass/volume] in Serum or Plasma by Bromocresol green (BCG) dye binding method 2.4 g/dL 3.5-5.2 [facility] Bil[facility].total [Mass/volume] in Serum or Plasma 1.1 mg/dL <1.2 [facility] Calcium [Mass/volume] in Serum or Plasma 8.7 mg/dL 8.8-10.2 [facility] Chloride [Moles/volume] in Serum or Plasma 99 mmol/L 98-107 [facility] Creatinine [Mass/volume] in Serum or Plasma 1.09 mg/dL 0.70-1.20 [facility] Glucose [Mass/volume] in Serum or Plasma 586 mg/dL 70-140 [facility] Results called to and read back by [id number] TO 09E KRISTIN CHAN AT 1451 Alkaline phosphatase [Enzymatic activity/volume] in Serum or Plasma 111 U/L 40-129 [facility] Potassium [Moles/volume] in Serum or Plasma 4.5 mmol/L 3.4-5.1 [facility] Protein [Mass/volume] in Serum or Plasma 5.9 g/dL 6.4-8.3 [facility] Sodium [Moles/volume] in Serum or Plasma 127 mmol/L 136-145 [facility] Aspartate aminotransferase [Enzymatic activity/volume] in Serum or Plasma 26 U/L <40 [facility] Urea nitrogen [Mass/volume] in Serum or Plasma 14 mg/dL 8-23 [facility] Osmolality of Serum or Plasma by calculation 292 mosm/kg 275-300 [facility] Creatinine/Urea nitrogen [Mass Ratio] in Serum or Plasma 13 [facility] Bicarbonate [Moles/volume] in Serum 16 mmol/L 22-29 L [facility] Alanine aminotransferase [Enzymatic activity/volume] in Seru m or Plasma 15 U/L <41 [facility] Anion gap 3 in Serum or Plasma 13 mmol/L 8-15 [facility] Glomerular filtration rate/1.73 sq M pre dicted among non-blacks [Volume Rate/Area] in Serum or Plasma by Creatinine-based formula (MDRD) 70 mL/min/1.73m2 >60 [facility] Glomerular filtration rate/1.73 sq M pre dicted among blacks [Volume Rate/Area] in Serum or Plasma by Creatinine-based formula (MDRD) 82 mL/min/1.73m2 >60 [facility] ID Date Data Source [id number] 09/13/2020 01:50:43 PM [facility] Name Value Range Interpretation Code Description Data Maria Antonia rce(s) Supporting Document(s) Glucose [Mass/volume] in Capillary blood by Glucometer 567 mg/dL 70- 140 [facility] ID Date Data Source [id number] 09/13/2020 11:06:54 AM [facility] Value Range Interpretation Code Description Data Maria Antonia rce(s) Supporting Document(s) Glucose [Mass/volume] in Capillary blood by Glucometer 397 mg/dL 70- 140 [facility] ID Date Data Source [id number] 09/13/2020 11:25:32 AM [facility] Value Range Interpretation Code Description Data Maria Antonia rce(s) Supporting Document(s) Leukocytes [#/volume] in Blood by Automated count 6.7 10*3/uL 4-10 [facility] Erythrocytes [#/volume] in Blood by Automated count 3.13 10*6/uL 4.6- 6.1 [facility] Hemoglobin [Mass/volume] in Blood 8.7 g/dL 13.5-18 [facility] Hematocrit [Volume Fraction] of Blood by Automated count 27.7 % 4 1-53 [facility] Erythrocyte mean corpuscular volume [Entitic volume] by Auto mated count 88.5 fL 80-96 [facility] Erythrocyte mean corpuscular hemoglobin [Entitic mass] by Automated count 27.8 pg 27-33 [facility] Erythrocyte mean corpuscular hemoglobin concentration [Mass/volume] by Automated count 31.5 g/dL 32.0-[facility].0 [facility] distribution width [Ratio] by Automated count 20.5 % 11.5-14.5 [facility] Platelets [#/volume] in Blood by Automated count 127 10*3/uL 150-400 [facility] Differential cell count method - Blood [facility] Neutrophils/100 leukocytes in Blood by Automated count 63 % [facility] Lymphocytes/100 leukocytes in Blood by Automated count 20 % [facility] Monocytes/100 leukocytes in Blood by Automated count 16 % [facility] Eosinophils/100 leukocytes in Blood by Automated count 1 % [facility] Basophils/100 leukocytes in Blood by Automated count 0 % [facility] Neutrophils [#/volume] in Blood by Automated count 4.24 10*3/uL 1.8-7 .0 [facility] Lymphocytes [#/volume] in Blood by Automated count 1.31 10*3/uL 1.2-4 .0 [facility] Monocytes [#/volume] in Blood by Automated count 1.04 10*3/uL 0-0.8 H [facility] Eosinophils [#/volume] in Blood by Automated count 0.10 10*3/uL 0-0.5 [facility] Basophils [#/volume] in Blood by Automated count 0.03 10*3/uL 0-0.2 [facility] Nucleated erythrocytes/100 leukocytes [Ratio] in Blood by Automated count 0 /100{WBCs} 0-0 [facility] ID Date Data Source [id number] 09/13/2020 10:19:21 AM T [facility] Name Value Range Interpretation Code Description Data Maria Antonia rce(s) Supporting Document(s) [facility] QNVSEu1aEfQSJmIn94/NVRjkFCLub0ZyMKobVZw0TYxgETHxQ4OmTSW5bG8hUYN8DCpVCrJcDqGsPdKo lbm [file] KfEAZiAZGwMzUqV1D9V5YkOaTsBgJ3OhXoNW7PJx6GIiP1QKH1xYEyXe8JXLVvGDZZDtTiQB9SKEp= ID Date Data Source [id number] 09/13/2020 09:11:40 AM EDT [facility] Name Value Range Interpretation Code Description Data Maria Antonia rce(s) Supporting Document(s) [facility] GDWVLc1kYiVDLaPrl0DwUnVjQKWxJG1zlww7U7V4lNHyS9CldTXcw4jiV1OzY0BuNXMnMRQMEY4LpEWg jb2 [file] [id number]++++uL79x++/mIi6x21/+E37z7/7u3t7c VV14852tb9no/ef/judsjj7114a7BaVFCU4pb4r1kIdThaL//wD//v0s3RH813+/mzl2pse/3u6Jtyc/ mn2tspzSb/4QnGfo9+vwT2Oe3t/O7tl+/f3n1+Z+D7d488b/erX73/7OP7z/5YdhwG5eA37vhqju295H zjevc7e96+xxcff/1Yxq595kt6i/7w/pXSJ9+//fLL rz/7l7+RQEtDfPn+Vx/f3t0Z+eKVv1+9+/cgWz221gy2H/7/LlZQao2Ub/r6q2+/ef/ZF7/64rO3b+8k Pn/7+PY/3n3/eu0vv/c0Si24lX/j+ZtT3M9/8+HrL7/+6p/ff/08273/47ab1N+9yaEh1b/2zz+/zU+b ibg9aWx8/Kvsa5nawgZkf3pok/viy3e//XY090xvBk /3Q5/95c///oe//nxPo7g5M/732/d/+OMff/jrX3/84Y//+Pb5D3/+w49/fPvX/9bWv/7921/+/DZ/0f nycVXqP1c29KI3u5/2AvXQJ6XbhTx3246+1X200K0x2Cx45N74Y8wsA/t7cLl+/f8C9L+1B9z/dP3TBO pxfCrp/r0JsL8340H+oZ96ehFzAtptm1i3o8l+bi0P uyMu4NNWa//xZZ/bWJ++ip879w++/s37t19//S8/sbAfLVTPlIV/eT+Ypw1V52NmTW2y1qbn3MX+tEuB w7EvtavB0i/++T//6e2vP/znjz9J/OQsi1HQEbuWs+XVkq7ri9+yn8ix1ketQ3/+zx//+r/+S+Yj+WPM nyYfeT/YXD9P/WC//fDt27/9z1fe//CXP/88eT//7m uPPaAX6btCg/jtx9/zM++iL2akcvIc2B6R1IAyt7T3Pvb26+dvTfpeQw3UxKTbB8owv74sgAvFRw187S /8+B//td08H+0mD0514+GT++sfV6O5glp/+6//+vc/u/t8iN/34OgjcUL5Z/SzH/7n73/4jz/88OefPf 72jzgEQuIuG814f5/+9Om7a/zshlOcL//y+0+VRvR1 XsGo4QP//vj7/+vPf/t5ExFl2s/s7kl3x2d0lrtk+x//+apU//bph6/fPvv+NO02h8Y233if19al/s8f 39rbX/84lnDab778QAFb33of5+Xb+5fwIjTvP//4atp3z/ZVhy5MX9/4/P2HV/bsPnXy/pN+99lnX3/3 4fbeMqfUc4nVbbac/cVpJFA4CpWhDUJ3icNikMbrcm XaEvhKPYlsINYnNxd5WU8YcBMfJEDuN5K2LPKqtt0xUEPqYVMorFLnJjUfQLVWFN6OoCYdCO4UGUv2GD IfZTPlOjAjYGWkiqG7CCFdUBTnKKFzX7HuqoZmtANyQTDzLf1+QJ3gd0HfAeRuOWRiTxf3RU4GlSZwVB 0ZiIShxM8rmzJyB719utFfUCYkWcnqu7AyNVvhWPVO OF1FBHX5MJE0CLYjZf1+XO6pr4QdXbSyCWPaOdd2EP3FeUSvo7ZsRU3KY7FaCHDzLUNNKHH4f7TiEDUw xgnjjufpB1VaQAK8vE8aSUI3BFOpOPjmEKEgUIkyZnJ2KMIdBGvwAULgUDMqRXXyAPHfXEt6yMPqGF0O M0LlKZNaMESFBBRnskWqHh9fQO4IML6TBQfjPNXJOe CtNZq4CdniLZTiD8IojbVvrZNuBDEDPFxgTxnoJCFjcL0wvNmgV6JsJOU6n7BfAM0ZF9LjHUPrYLLJMW I2l2OsMIDlsdrzkwwiJdCoUZJyTNAsDCLwGF6Nas6sbZTaqkKhKHQGZVyyDjlwEE3weGjzmitdC5WusK VzKSA+XkYzWU1koy4+VuKsVUXaKdq5TXHiCIagGSHu JZNvDSQxF6xtAXOgGzBmYUQaIvKhCP8Tr7OilVQcSz9zmnXfSkqFzRNfDnsiCZBrBDQnZBKuZlSVMHLt KHOaSWZwWDR1MDQoEURyPNkfXMFiJHG0UXX4WUUwYFLyEJ3kMfBlWNTrVnG8UWAnXFFuPPUmgkKENSSe KYX0POo7UjPcQAZxXUAmBSilDZKuOQRdJJEcPZB9JC F5KVEyWiJfPCEuEKOjORRmYKEeXCIrdxPGSOLuIUNxCFX6XGFhQQJeFGDwAYkcGXIyIJDvKYljERCyYN VbCP7oTrLbCQEcAWRdFMluSAWzOHXsbmQSTRSgZXLyYIDqAWQeBVXpDLYkFQseRDZcPPKcPMHlIQWzIX CeOK7qXbKqLQZmTSU7EIJjAKGiQRUzpsWHULCmRCNr EUj1IJJgROPpFLMhBQflJRScCQMvTHT7GTZkSSEcIN7uLaEbBEXpTXF3SuInECRyAKRfknIILVOpLANo AUJ9AuCzOHAaMKIkLJztMLTqANBjRVtfJNChMXCzPN7gBiWnDZKtHYTjIJwxSMHjVTRocrHLJAFvOEVd YBHjWtQkZHSzLYCpRBvoOJCpHTR5ZwQ8LYGqIHEdAM 1jXwHeZROyZOP1AFmuZNMlZQDcchGQXVGgQTIrZHlkDNKtQIYaUSDsHRzlDRYpYSYbOTT4PUQhQLLkSW 4oLsInEQWrZBCuFNRrAgH8VmReIbFUcWEptCpqvfu6SSgqO3i1PCAiGXbbMJ8dxfIaLJRvRzpiKv6rzS I6AHQmGbwGQb5Tc2YxjsF6cmJtMjO5LXriLpYyTV7I ID Date Data Source [id number] 09/13/2020 08:48:49 AM EDT [facility] Name Value Range Interpretation Code Description Data Maria Antonia e(s) Supporting Document(s) Bicarbonate [Moles/volume] in Serum 16 mmol/L 22-29 L [facility] Chloride [Moles/volume] in Serum or Plasma 99 mmol/L 98-107 [facility] Creatinine [Mass/volume] in Serum or Plasma 0.81 mg/dL 0.70-1.20 [facility] Glucose [Mass/volume] in Serum or Plasma 384 mg/dL 70-140 H [facility] Potassium [Moles/volume] in Serum or Plasma 4.3 mmol/L 3.4-5.1 [facility] Sodium [Moles/volume] in Serum or Plasma 128 mmol/L 136-145 L [facility] Urea nitrogen [Mass/volume] in Serum or Plasma 14 mg/dL 8-23 [facility] Anion gap 3 in Serum or Plasma 12 mmol/L 8-15 [facility] Osmolality of Serum or Plasma by calculation 281 mosm/kg 275-300 [facility] Creatinine/Urea nitrogen [Mass Ratio] in Serum or Plasma 17 [facility] Calcium [Mass/volume] in Serum or Plasma 8.8 mg/dL 8.8-10.2 [facility] Glomerular filtration rate/1.73 sq M pre dicted among non-blacks [Volume Rate/Area] in Serum or Plasma by Creatinine-based formula (MDRD) >6 0 [facility] Glomerular filtration rate/1.73 sq M pre dicted among blacks [Volume Rate/Area] in Serum or Plasma by Creatinine-based formula (MDRD) >60 [facility] ID Date Data Source [id number] 09/13/2020 07:43:49 AM [facility] Value Range Interpretation Code Description Data Maria Antonia rce(s) Supporting Document(s) Glucose [Mass/volume] in Capillary blood by Glucometer 375 mg/dL 70- 140 H [facility] ID Date Data Source [id number] 09/13/2020 05:39:47 AM [facility] Value Range Interpretation Code Description Data Maria Antonia rce(s) Supporting Document(s) Ammonia [Moles/volume] in Plasma 70 umol/L 16-60 H [facility] ID Date Data Source [id number] 09/13/2020 05:38:08 AM [facility] Value Range Interpretation Code Description Data Maria Antonia rce(s) Supporting Document(s) Bicarbonate [Moles/volume] in Serum 17 mmol/L 22-29 L [facility] Chloride [Moles/volume] in Serum or Plasma 101 mmol/L 98-107 [facility] Creatinine [Mass/volume] in Serum or Plasma 0.86 mg/dL 0.70-1.20 [facility] Glucose [Mass/volume] in Serum or Plasma 364 mg/dL 70-140 H [facility] Potassium [Moles/volume] in Serum or Plasma 4.3 mmol/L 3.4-5.1 [facility] Sodium [Moles/volume] in Serum or Plasma 129 mmol/L 136-145 L [facility] Urea nitrogen [Mass/volume] in Serum or Plasma 14 mg/dL 8-23 [facility] Anion gap 3 in Serum or Plasma 11 mmol/L 8-15 [facility] Osmolality of Serum or Plasma by calculation 284 mosm/kg 275-300 [facility] Creatinine/Urea nitrogen [Mass Ratio] in Serum or Plasma 16 [facility] Calcium [Mass/volume] in Serum or Plasma 8.6 mg/dL 8.8-10.2 L [facility] Glomerular filtration rate/1.73 sq M pre dicted among non-blacks [Volume Rate/Area] in Serum or Plasma by Creatinine-based formula (MDRD) >6 0 [facility] Glomerular filtration rate/1.73 sq M pre dicted among blacks [Volume Rate/Area] in Serum or Plasma by Creatinine-based formula (MDRD) >60 [facility] ID Date Data Source [id number] 09/13/2020 05:01:24 AM T [facility] Name Value Range Interpretation Code Description Data Maria Antonia rce(s) Supporting Document(s) Glucose [Mass/volume] in Capillary blood by Glucometer 341 mg/dL 70- 140 H [facility] ID Date Data Source [id number] [facility] [id number] RES ULTInterpreted by:Rosales Serrano MDINDICATION: Left hemiparesis, [...] rce(s) Supporting Document(s) ID Date Data Source [id number] 09/12/2020 06:25:40 PM EDT [facility] CT HEAD WITHOUT CONTRAST [id number] RESU LTInterpreted by:BRANDON HughesPROCEDURE INFORMATION: Exam: CT [...] iterative reconstruction. COMPARISON: CT HEAD WITHOUT CONTRAST [id number] 09/12/2020 1:30 AM FINDINGS: Brain: Normal cortical [...] rce(s) Supporting Document(s) ID Date Data Source [id number] 09/12/2020 06:58:34 PM EDT [facility] Name Value Range Interpretation Code Description Data Maria Antonia rce(s) Supporting Document(s) Glucose [Mass/volume] in Capillary blood by Glucometer 396 mg/dL 70- 140 H [facility] ID Date Data Source [id number] 09/12/2020 07:58:01 AM EDT [facility] Name Value Range Interpretation Code Description Data Maria Antonia rce(s) Supporting Document(s) Bicarbonate [Moles/volume] in Serum 19 mmol/L 22-29 L [facility] Chloride [Moles/volume] in Serum or Plasma 108 mmol/L 98-107 H [facility] Creatinine [Mass/volume] in Serum or Plasma 0.77 mg/dL 0.70-1.20 [facility] Glucose [Mass/volume] in Serum or Plasma 161 mg/dL 70-140 H [facility] Potassium [Moles/volume] in Serum or Plasma 4.3 mmol/L 3.4-5.1 [facility] Sodium [Moles/volume] in Serum or Plasma 135 mmol/L 136-145 L [facility] Urea nitrogen [Mass/volume] in Serum or Plasma 13 mg/dL 8-23 [facility] Anion gap 3 in Serum or Plasma 9 mmol/L 8-15 [facility] Osmolality of Serum or Plasma by calculation 283 mosm/kg 275-300 [facility] Creatinine/Urea nitrogen [Mass Ratio] in Serum or Plasma 16 [facility] Calcium [Mass/volume] in Serum or Plasma 8.6 mg/dL 8.8-10.2 L [facility] QA FLAGS AND/OR RANGES MODIFIED BY DEMOG RAPHIC UPDATE ON 09/12 AT 1750 Glomerular filtration rate/1.73 sq M pre dicted among non-blacks [Volume Rate/Area] in Serum or Plasma by Creatinine-based formula (MDRD) >6 0 [facility] Glomerular filtration rate/1.73 sq M pre dicted among blacks [Volume Rate/Area] in Serum or Plasma by Creatinine-based formula (MDRD) >60 [facility] ID Date Data Source [id number] 09/11/2020 07:25:08 PM EDT [facility] Name Value Range Interpretation Code Description Data Maria Antonia rce(s) Supporting Document(s) Bicarbonate [Moles/volume] in Serum 20 mmol/L 22-29 L [facility] Chloride [Moles/volume] in Serum or Plasma 101 mmol/L 98-107 [facility] Creatinine [Mass/volume] in Serum or Plasma 0.82 mg/dL 0.70-1.20 [facility] Glucose [Mass/volume] in Serum or Plasma 114 mg/dL 70-140 [facility] Potassium [Moles/volume] in Serum or Plasma 4.1 mmol/L 3.4-5.1 [facility] Sodium [Moles/volume] in Serum or Plasma 128 mmol/L 136-145 [facility] Urea nitrogen [Mass/volume] in Serum or Plasma 14 mg/dL 8-23 [facility] Anion gap 3 in Serum or Plasma 7 mmol/L 8-15 [facility] Osmolality of Serum or Plasma by calculation 267 mosm/kg 275-300 [facility] Creatinine/Urea nitrogen [Mass Ratio] in Serum or Plasma 17 [facility] Calcium [Mass/volume] in Serum or Plasma 8.1 mg/dL 8.8-10.2 [facility] QA FLAGS AND/OR RANGES MODIFIED BY DEMOG RAPHIC UPDATE ON 09/12 AT 1750 Glomerular filtration rate/1.73 sq M pre dicted among non-blacks [Volume Rate/Area] in Serum or Plasma by Creatinine-based formula (MDRD) >6 0 [facility] Glomerular filtration rate/1.73 sq M pre dicted among blacks [Volume Rate/Area] in Serum or Plasma by Creatinine-based formula (MDRD) >60 [facility] ID Date Data Source [id number] 06/05/2020 07:52:00 AM EDT [email or web address] Name Value Range Interpretation Code Description Data Maria Antonia rce(s) Supporting Document(s) COVID-19 RT-PCR SAMPLE CUTTER SWAB Not Detected [facility] A not detected (negative) test result [...] developed and its performance characteristics determined by [employer] and verified at [email or web address]. It has not been cleared or approved by the U.S. Food and Drug Administration for diagnostic use. This test has been authorized by FDA under an EUA for use by authorized laboratories. Results should be used in conjunction with clinical findings, and should not form the sole basis for a diagnosis or treatment decision. Methods: SARS-CoV-2 Multiplex RT-PCR Assay ID Date Data Source [id number] 06/03/2020 04:00:00 PM EDT [facility] Name Value Range Interpretation Code Description Data Maria Antonia rce(s) Supporting Document(s) SARS-CoV-2 (COVID-19) N gene [Presence] in Respiratory specimen by ARAM with probe detection NEGATIVE [facility] and reported by [email or web address]. ID Date Data Source [id number] 06/03/2020 12:00:00 AM EDT [facility] Name Value Range Interpretation Code Description Data Maria Antonia rce(s) Supporting Document(s) Carestart Rapid COVID Antigen Test Negative [facility] ID Date Data Source [id number] 05/03/2020 04:58:00 PM EST [facility] Name Value Range Interpretation Code Description Data Maria Antonia rce(s) Supporting Document(s) SARS coronavirus 2 RNA [Presence] in Res piratory specimen by ARAM with probe detection NEGATIVE [facility] This lab was ordered by [facility] a nd reported by [facility]. ID Date Data Source [id number] 04/01/2020 06:29:00 PM EST [facility] Name Value Range Interpretation Code Description Data Maria Antonia rce(s) Supporting Document(s) SARS coronavirus 2 RNA [Presence] in Res piratory specimen by ARAM with probe detection NEGATIVE [facility] This lab was ordered by [facility] a nd reported by [facility]. ID Date Data Source [id number] 03/13/2020 12:49:42 PM EST [facility] Name Value Range Interpretation Code Description Data Maria Antonia rce(s) Supporting Document(s) Discharge Summary [facility] YASMVl2nWqESLoTb36/JNPgtDAHbn1ZmUOjkGSi2JZemZIJpE6IyKWN5fI1nPZY2QWbKXfQoAiZrKXA1 lbm [file] AgICAgICAgICAgICAgICAgICAgICAgICAgICAgICAgICAgICAgICAgICAgICAgICAgICAgICAgICAgIC AgICAgICAgICAgICAgICAgICAgICAgICAgICAgICAg EF0DHVFaTPAsQZMvSYWcULEjFLSuAXOgWJTcMEOgIDOnABMiPKZvIFVzLCPySFWrEVQsFOTkZOGdOKRv VBDfCUQgPLPyFPSjDKZrIKDlSLYuGUPgGBGlCOXzLDFyRQLiJCRhFNFyJZ8PIRLsHPIfEZXjTIHvXKEe ICAgICAgICAgICAgICAgICAgICAgICAgICAgICAgIC PxMJIvLLAxRZZaIFRwKKMkDXXnPSZhQBBgLOQuSQIdHDLrAVYiGXYrKQQlEOHfRNTzBEDvVP7CNDVoNX AgICAgICAgICAgICAgICAgICAgICAgICAgICAgICAgICAgICAgICAgICAgICAgICAgICAgICAgICAgIC AgICAgICAgICAgICAgICAgICAgICAgICAgICAgICAg WDEiQO8HMTGjGGDrWTKxLKQlBQOdPXEyZDYwAHByKABkKBDuJUVbCIIqBRNeCNPmSDMqWQHbNQHbIZXc QNJzMNSoMACmGJDlMWChLKXsFSNuLYLcGGRaQCHlQIPoGRUbWGKoBCIzTSUgBF3EJOKbGTExVZUrSHIx ICAgICAgICAgICAgICAgICAgICAgICAgICAgICAgIC IgVWJtRCInFMGsHUTyZQDmEHIjLZZnESXdZFOoYKPbGHHwHJSvKTQpAEPvTQNlCKIlXNSaAPBkWH6IIE AgICAgICAgICAgICAgICAgICAgICAgICAgICAgICAgICAgICAgICAgICAgICAgICAgICAgICAgICAgIC AgICAgICAgICAgICAgICAgICAgICAgICAgICAgICAg CVIjIMOeEB4PJNNjYBRgDPOdOEJyXCQkRDRfJIDbFLZbRZGkQLDoEVGwGMHmFVNgYYTkXXEgHTWnCEKw IHGmIUTqHELgWVHvAOFhZGXgKAEgQSPsUZQxQZWpJJVjZFElLJFtKDHgGDNmELUgRI8BXHWuFKXjPPGq ICAgICAgICAgICAgICAgICAgICAgICAgICAgICAgIC AgICAgICAgICAgICAgICAgICAgICAgICAgICAgICAgICAgICAgICAgICAgICAgICAgICAgICAgICAgIA 0KICAgICAgICAgICAgICAgICAgICAgICAgICAgICAgICAgICAgICAgICAgICAgICAgICAgICAgICAgIC AgICAgICAgICAgICAgICAgICAgICAgICAgICAgICAg CDKbFXOiCNOyFN2RRK51oPXtv8I8PURvLZ7qnve/Gl8DYBqsthNoiPCdTN4NRkYtKL0mcz0BGwXbKD9u gu1WZPrWZaYfW2R2rSJfBIPdGVLRVdHeU06cTYcjQv16DJaeBGOsMfUvVYt9Jc4POfQoC6ykCVFiDtA2 JBIjPsG9PFYjOkP4XFHhDdDwQPEqKPYqYWMnQQBAHN Z3NBFfJcTtVIfdER3Hk7IhoPU6XFh+En6JUU3mr4JaNCqfPJUcQI6xay3VLMaMCyWrJ8VjhgM7YDQ8JR RbAc6GBYSwDXZvkHSzRPXfCSDIXpTuE1IzoH96GOTBNa9+YLbfpaAhJvjETpI7WNCyl2AgRBw4FZ2ZJG BaJLf2uZDzIKavN2ljtuquWUR7wT1fpyxrUosmTyHl h5cxIPIbAgWxETdkCC3hTWSvBL80TtArElBqUED5CQBfZU9eEHufKQ3BPHT6EUscHCCzOFNwL7oRUlMv NYEpReOrtJesRX7IPjNkL4NlixXfiMFlBKDoVZLHUl5+APgoirWrJltGUyZwJCWkp6FfCMc6JK0WHUHi OUqzQL0MYIIufV7lBXljBE3RVmOkViHwTMDUQzXoX8 5viYLjOCl2X5YmCdGxMABcReghQHHgNZprHtVfWBIlYkMyNLntSX4+ID4+ERkkMH6VANeibgEwHXTfUx 9DGKLqBAMeCA7hAXIrQVJkQ6B1zMoyZSHIKwXyP9sltoesLP0eQUYmO056qIthtnAlGZD7NPXpBs3IML WoTEM5JFOnoQIsMmzqHFFUISuwQN3FtCIpPPV6vL2e KBabYSOeLIJaY4eTRmQkbUjjHF51sTpozsIbbCApSYv+Dg0WAX7zf2NdCDf6wkRqFGkjGDNcYJgtOFGw ZRLfSSMqNWR2JVX2KSNOSeBiGLJaKFPlTDdiIOUuGQYtox5XWQZeTHLiTKJvVpBkCCYxSSImYVpfCEHm JUYpTav9NFVnLBNjEJ8NHrBsMUWuYZCpCTejAAWrIJ Sdey0KVMDmITLmZvU5SoTaESToFRBjRTusRKPbWKSsTbx8JDJvKWJoVB2ZYgAmTWDrRWqnVnifVSUqAR Fvsk9YXMFvRYBzTEH9MbUbQXMtQAUwKKmyAAIuLHMlGXLeRTPuPTGuXC4BJlVjRNPuIASjLzQvSDUsAA Wcco9RJZOvDEHoWYObGMChYHAoNFLqRZslHCOxOLU0 XjSeYQIkASZsZE3NVoIvDYTeQLm5TsljZLTvRPXbvt5TJCQvIWLlBlp5FUEnJDGsBTZlHRfmJKReBRM1 FQP6KUBtHYJuMI6SXlTjWVMlNKgaGkBfNNQvCWTjit6OEBRgWBDwTZNlKnDvILShLWNwGLnvIREtCXBx HmTkQVTdTQFxGJ2HSyBkQGToDxA6FYLrPQCyPKHarv 7KVDZgIXHiETJ5HeOcIWDpLBKkJGzsGCOjNUEdFTU6YDJmUMCdTV8AEgGgUNTaZvU6XXXsBHPuDARqkd 8NUHWgYIUyNfwbQCBaKJZqPXWhDFdyCZQwYBZrCUJoPWIfMDQcSX3NGfDfUEEmSlUrDCFtWLDsARMxcl 5KJENhZULmDSF8IQMwOXOtSTFfIBkyRUUxYTV7Ykd6 HISnDVQdBU4CGxPtRQVrXpP1BzcwKEIsODTbrh3GOLLdDEClKKCwGRSrEFDpOSCeNMbmQGWiPEH4WdYe ETQqVSVoXE0EZnQdFTCkLyU8WbVrXEIeGNPwia3EWBGaPVClUHS0DMAfBMOuRKMaBEeeKWMlWGVlBOv7 DLEiZVWqET9MTqDjBEQbIkRzWSmmPEJoKMDbaw1HXJ XvWJPbOLA7XOCfGTTzNNGrHNjvUSSzLKGsHTo8UMUlEFMkGB6DLbGcSVDjAuLdUCOkKUIhAKLlyw2DWV MfDCEfFlIrEPGqRHAlYAPsGMriBVOnCPKdTTl8NMVyKNSkYL6URtLqDYLpEsJ3CeApFWNlBGYmod4UwG YwiMhtmh1WPXoFXu6YuOwtLKHdNNjfUu3miJA1LZAk WCKUVz1HqfDuKETsERXVFThkYOCwEDA5SlSmXUQtICcmBTSqADv2GUSuTzVcBeXdMFGxZLQ0BkU3PXk1 Q7F0RFAeDKEoY6OmDhFmUYG5FSO3C5JyOmF1DuN+FI3cSRe+Vs1Lq2OvloL8ebQoDAvhMbz1CY3EOBLJ T0YNCg== ID Date Data Source [id number] 03/10/2020 12:20:35 PM [facility] Value Range Interpretation Code Description Data Maria Antonia rce(s) Supporting Document(s) Glucose [Mass/volume] in Capillary blood by Glucometer 191 mg/dL 70- 140 [facility] ID Date Data Source [id number] 03/10/2020 08:24:44 AM [facility] Value Range Interpretation Code Description Data Maria Antonia rce(s) Supporting Document(s) Glucose [Mass/volume] in Capillary blood by Glucometer 140 mg/dL 70- 140 [facility] ID Date Data Source [id number] 03/10/2020 05:13:44 AM [facility] Value Range Interpretation Code Description Data Maria Antonia rce(s) Supporting Document(s) Prothrombin time (PT) 25.7 s 12.5-14.9 H [facility] INR in Platelet poor plasma by Coagulation assay 2.29 [facility] Routine intensity oral anticoagulation I NR is typically 2.0-3.0. Target INR must be clinically individualized. ID Date Data Source [id number] 03/10/2020 05:17:59 AM [facility] Value Range Interpretation Code Description Data Maria Antonia rce(s) Supporting Document(s) Bilirubin.direct [Mass/volume] in Serum or Plasma 0.4 mg/dL <0.3 [facility] ID Date Data Source [id number] 03/10/2020 05:17:59 AM [facility] Value Range Interpretation Code Description Data Maria Antonia rce(s) Supporting Document(s) Albumin [Mass/volume] in Serum or Plasma by Bromocresol green (BCG) dye binding method 1.7 g/dL 3.5[facility] Bilirubin.total [Mass/volume] in Serum or Plasma 1.1 mg/dL <1.2 [facility] Calcium [Mass/volume] in Serum or Plasma 7.8 mg/dL 8.8-10.2 L [facility] Chloride [Moles/volume] in Serum or Plasma 104 mmol/L 98-107 [facility] Creatinine [Mass/volume] in Serum or Plasma 0.79 mg/dL 0.70-1.20 [facility] Glucose [Mass/volume] in Serum or Plasma 269 mg/dL 70-140 [facility] Alkaline phosphatase [Enzymatic activity/volume] in Serum or Plasma 76 U/L 40-129 [facility] Potassium [Moles/volume] in Serum or Plasma 4.0 mmol/L 3.4-5.1 [facility] Protein [Mass/volume] in Serum or Plasma 5.1 g/dL 6.4-8.3 L [facility] Sodium [Moles/volume] in Serum or Plasma 132 mmol/L 136-145 L [facility] Aspartate aminotransferase [Enzymatic activity/volume] in Serum or Plasma 151 U/L <40 [facility] Urea nitrogen [Mass/volume] in Serum or Plasma 15 mg/dL 8-23 [facility] Osmolality of Serum or Plasma by calculation 284 mosm/kg 275-300 [facility] Creatinine/Urea nitrogen [Mass Ratio] in Serum or Plasma 19 [facility] Bicarbonate [Moles/volume] in Serum 23 mmol/L 22-29 [facility] Alanine aminotransferase [Enzymatic activity/volume] in Seru m or Plasma 262 U/L <41 [facility] Anion gap 3 in Serum or Plasma 5 mmol/L 8-15 L [facility] Glomerular filtration rate/1.73 sq M pre dicted among non-blacks [Volume Rate/Area] in Serum or Plasma by Creatinine-based formula (MDRD) >6 0 [facility] Glomerular filtration rate/1.73 sq M pre dicted among blacks [Volume Rate/Area] in Serum or Plasma by Creatinine-based formula (MDRD) >60 [facility] ID Date Data Source [id number] 03/10/2020 05:17:59 AM [facility] Value Range Interpretation Code Description Data Maria Antonia rce(s) Supporting Document(s) Creatine kinase [Enzymatic activity/volume] in Serum or Plasma 1 469 U/L 20-200 [facility] ID Date Data Source [id number] 03/09/2020 09:27:30 PM [facility] Value Range Interpretation Code Description Data Maria Antonia rce(s) Supporting Document(s) Glucose [Mass/volume] in Capillary blood by Glucometer 211 mg/dL 70- 140 [facility] ID Date Data Source [id number] 03/09/2020 06:39:34 PM [facility] Value Range Interpretation Code Description Data Maria Antonia rce(s) Supporting Document(s) Glucose [Mass/volume] in Capillary blood by Glucometer 273 mg/dL 70- 140 [facility] ID Date Data Source [id number] 03/09/2020 05:42:11 PM [facility] Value Range Interpretation Code Description Data Maria Antonia rce(s) Supporting Document(s) Glucose [Mass/volume] in Capillary blood by Glucometer 256 mg/dL 70- 140 [facility] ID Date Data Source [id number] 03/09/2020 01:15:52 PM [facility] Value Range Interpretation Code Description Data Maria Antonia rce(s) Supporting Document(s) Glucose [Mass/volume] in Capillary blood by Glucometer 236 mg/dL 70- 140 [facility] ID Date Data Source [id number] 03/09/2020 12:00:29 PM [facility] Value Range Interpretation Code Description Data Maria Antonia rce(s) Supporting Document(s) Glucose [Mass/volume] in Capillary blood by Glucometer 206 mg/dL 70- 140 [facility] ID Date Data Source [id number] 03/09/2020 08:08:29 AM [facility] Value Range Interpretation Code Description Data Maria Antonia rce(s) Supporting Document(s) Glucose [Mass/volume] in Capillary blood by Glucometer 172 mg/dL 70- 140 [facility] ID Date Data Source [id number] 03/09/2020 05:10:42 AM [facility] Value Range Interpretation Code Description Data Maria Antonia rce(s) Supporting Document(s) Leukocytes [#/volume] in Blood by Automated count 5.8 10*3/uL 4-10 [facility] Erythrocytes [#/volume] in Blood by Automated count 3.22 10*6/uL 4.6- 6.1 [facility] Hemoglobin [Mass/volume] in Blood 11.1 g/dL 13.5-18 [facility] Hematocrit [Volume Fraction] of Blood by Automated count 32.7 % 4 1-53 [facility] Erythrocyte mean corpuscular volume [Entitic volume] b y Automated count 101.6 fL 80-96 [facility] Erythrocyte mean corpuscular hemoglobin [Entitic mass] by Automated count 34.3 pg 27-33 [facility] Erythrocyte mean corpuscular hemoglobin concentration [Mass/volume] by Automated count 33.8 g/dL 32.0-36.0 [facility] Erythrocyte distribution width [Ratio] by Automated count 17.3 % 11.5-14.5 [facility] Platelets [#/volume] in Blood by Automated count 97 10*3/uL 150-400 L [facility] ID Date Data Source [id number] 03/09/2020 05:22:54 AM [facility] Name Value Range Interpretation Code Description Data Maria Antonia rce(s) Supporting Document(s) Prothrombin time (PT) 26.1 s 12.5-14.9 [facility] INR in Platelet poor plasma by Coagulation assay 2.34 [facility] Routine intensity oral anticoagulation I NR is typically 2.0-3.0. Target INR must be clinically individualized. ID Date Data Source [id number] 03/09/2020 05:34:32 AM [facility] Value Range Interpretation Code Description Data Maria Antonia rce(s) Supporting Document(s) Bilirubin.direct [Mass/volume] in Serum or Plasma 0.5 mg/dL <0.3 [facility] ID Date Data Source [id number] 03/09/2020 05:34:32 AM [facility] Value Range Interpretation Code Description Data Maria Antonia rce(s) Supporting Document(s) Albumin [Mass/volume] in Serum or Plasma by Bromocresol green (BCG) dye binding method 1.9 g/dL 3.5-5.2 [facility] Bilirubin.total [Mass/volume] in Serum or Plasma 1.6 mg/dL <1.2 H [facility] Calcium [Mass/volume] in Serum or Plasma 7.8 mg/dL 8.8-10.2 [facility] Chloride [Moles/volume] in Serum or Plasma 107 mmol/L 98-107 [facility] Creatinine [Mass/volume] in Serum or Plasma 0.82 mg/dL 0.70-1.20 [facility] Glucose [Mass/volume] in Serum or Plasma 228 mg/dL 70-140 [facility] Alkaline phosphatase [Enzymatic activity/volume] in Serum or Plasma 72 U/L 40-129 [facility] Potassium [Moles/volume] in Serum or Plasma 3.7 mmol/L 3.4-5.1 [facility] Protein [Mass/volume] in Serum or Plasma 5.3 g/dL 6.4-8.3 L [facility] Sodium [Moles/volume] in Serum or Plasma 132 mmol/L 136-145 L [facility] Aspartate aminotransferase [Enzymatic activity/volume] in Serum or Plasma 253 U/L <40 [facility] Urea nitrogen [Mass/volume] in Serum or Plasma 15 mg/dL 8-23 [facility] Osmolality of Serum or Plasma by calculation 283 mosm/kg 275-300 [facility] Creatinine/Urea nitrogen [Mass Ratio] in Serum or Plasma 19 [facility] Bicarbonate [Moles/volume] in Serum 20 mmol/L 22-29 L [facility] Alanine aminotransferase [Enzymatic activity/volume] in Seru m or Plasma 339 U/L <41 H [facility] Anion gap 3 in Serum or Plasma 6 mmol/L 8-15 L [facility] Glomerular filtration rate/1.73 sq M pre dicted among non-blacks [Volume Rate/Area] in Serum or Plasma by Creatinine-based formula (MDRD) >6 0 [facility] Glomerular filtration rate/1.73 sq M pre dicted among blacks [Volume Rate/Area] in Serum or Plasma by Creatinine-based formula (MDRD) >60 [facility] ID Date Data Source [id number] 03/09/2020 05:49:42 AM [facility] Value Range Interpretation Code Description Data Maria Antonia rce(s) Supporting Document(s) Creatine kinase [Enzymatic activity/volume] in Serum or Plasma 3 003 U/L 20-200 [facility] Confirmed ID Date Data Source [id number] 03/08/2020 09:20:12 PM [facility] Value Range Interpretation Code Description Data Maria Antonia rce(s) Supporting Document(s) Glucose [Mass/volume] in Capillary blood by Glucometer 308 mg/dL 70- 140 [facility] ID Date Data Source [id number] 03/08/2020 05:13:08 PM [facility] Value Range Interpretation Code Description Data Maria Antonia rce(s) Supporting Document(s) Glucose [Mass/volume] in Capillary blood by Glucometer 236 mg/dL 70- 140 [facility] ID Date Data Source [id number] 03/08/2020 11:58:35 AM EST [facility] Name Value Range Interpretation Code Description Data Maria Antonia rce(s) Supporting Document(s) Glucose [Mass/volume] in Capillary blood by Glucometer 285 mg/dL 70- 140 [facility] ID Date Data Source [id number] 03/08/2020 08:17:03 AM [facility] Value Range Interpretation Code Description Data Maria Antonia rce(s) Supporting Document(s) Glucose [Mass/volume] in Capillary blood by Glucometer 255 mg/dL 70- 140 [facility] ID Date Data Source [id number] 03/08/2020 08:03:03 AM [facility] Value Range Interpretation Code Description Data Maria Antonia rce(s) Supporting Document(s) [facility] CFXFQi3pPlVYHiDt45/UQBvmOSWun9BjETyxAKk6PTchXZQlM4KmEKZ0aP0rVGE7IFaFFqItKuEwLBV6 lbm FeNqiFGaPfCAOwWyuPVjKzCMlwDuqudGXpEC7NeSC0TAIuG82gERCgHOYsM9DcCSEgUuY+Xy0QOPJsyF OwSH8MXszF7V8xP9qMIi5+IpjnpfksrmVlIBFWr6uokPC6aSZV8iyex13ReXUGY9O4LeK6OfjIR9xHTV lUH1hbOjgZ0stIWeEFA6+/y9fqLC5n62bAvEKhrjD/ k24QuuSKtjG//3WYf7rk2ni3i+cg7jUkbSdMf4F+U9tfv/Cmr7Z+slQ6m+xak5FLGcHygMoEpzeUOk9I 47Xh5PTI0yLW5aXBN2h0oxPR6YR1//H1a9X/nZv81a7vNW7Xz+3Vqu/gn9LLaSa4ck6c7OF9hVOcruUk 67bO3xt69s7rfQhAOlzP/ZmWhxxZKeXDdNHNlNmmiT h6C162x9Wc5JWOxOZq5mfvoIawjhNO/NkqI3zy24/8BAcS9J0sZbmDmsxPp1STyUNdbrCid7WmqUiFob lna3VPQl2FjLQxGPnAcuM4TeTNxfGuAPWz5a5Pu+m+Xyf5Ii1Z12Ao4RyUO1GS+8PILC0D98hPDDcbvh lO5JVE1B9/u53424W0uzQ00C1HWJ+9b056u1M4rMmX [file] [id number] ID Date Data Source [id number] 03/08/2020 07:46:34 AM [facility] US ABDOMEN LIMITED [id number] RESULTInte rpreted by:Kerri Adhikari, MDPROCEDURE INFORMATION: Exam: US Abdomen, Limited; Right Upper Quadrant Exam date and time: 03/08/2020 5:35 AM Age: 64 years old Clinical indication: Screening exam; Other: Evaluate ruq TECHNIQUE: Imaging protocol: US abdomen. Real time ultrasound with image documentation. Limited exam focused on the right upper quadrant. COMPARISON: US ABDOMEN LIMITED [id number] PORTABLE 03/06/2020 11:29 PM FINDINGS: Liver: The [...] rce(s) Supporting Document(s) ID Date Data Source [id number] 03/09/2020 04:07:16 PM [facility] Name Value Range Interpretation Code Description Data Maria Antonia rce(s) Supporting Document(s) Liver kidney microsomal 1 Ab [Units/volume] in Serum 0.0-2 0.0 [facility] (NOTE) Neg ative 0.0 - 20.0 Equivocal 20.1 - 24.9 Positive >24.9LKM type 1 antibodies are detected in patients withautoimmune hepatitis type 2 and in up to 8% ofpatients with chronic HCV infection.Performed At: RN [facility] [address] [id number] Bee MD Ph:[phone] ID Date Data Source [id number] 03/09/2020 09:05:59 PM [facility] Name Value Range Interpretation Code Description Data Maria Antonia rce(s) Supporting Document(s) IgG [Mass/volume] in Serum or Plasma 1984 mg/dL 603-1613 H [facility] IgG subclass 1 [Mass/volume] in Serum 1143 mg/dL 248-810 [facility] IgG subclass 2 [Mass/volume] in Serum 316 mg/dL 130-555 [facility] IgG subclass 3 [Mass/volume] in Serum 74 mg/dL 15-102 [facility] IgG subclass 4 [Mass/volume] in Serum 97 mg/dL 2-96 H [facility] (NOTE)Performed At: [facility] [address] [place], [place] [id number] Coburn MD Ph:[phone] At: KRIST[facility] [address] [id number] Bee MD Ph:[phone] ID Date Data Source [id number] 03/09/2020 10:05:41 PM [facility] Name Value Range Interpretation Code Description Data Maria Antonia rce(s) Supporting Document(s) Hepatitis C virus RNA [Units/volume] (vi ral load) in Serum or Plasma by Probe and target amplification method [facility] Hepatitis C virus RNA [log units/volume] (viral load) in Serum or Plasma by Probe and target amplification method [facility] Service [facility] (NOTE)The quantitative range of this ass ay is 15 IU/mL to 100 millionIU/mL.Performed At: [facility] [id number] Bee MD Ph:[phone] ID Date Data Source [id number] 03/08/2020 08:17:03 AM [facility] Name Value Range Interpretation Code Description Data Maria Antonia rce(s) Supporting Document(s) Hepatitis A virus IgM Ab [Presence] in Serum or Plasma by Im munoassay Non Reactive [facility] No acute infection, susceptible to infec tion. Hepatitis B virus core IgM Ab [Presence] in Serum or Plasma by Immunoassay Non Reactive [facility] IgM antibodies to HBc were not detected, does not exclude the possibility of exposure to HBV. Hepatitis C virus Ab [Presence] in Serum or Plasma by Immuno assay Non [facility] Past or current Hepatitis C infection. Harish merrill forwarded to reference laboratory for quantitative HCV RNA testing. Hepatitis B virus surface Ag [Presence] in Serum or Plasma b y Immunoassay Non Reactive [facility] No active or previous infection. Suscept ible to infection. ID Date Data Source [id number] 03/08/2020 10:30:48 AM [facility] Value Range Interpretation Code Description Data Maria Antonia rce(s) Supporting Document(s) Hepatitis B virus surface Ab [Units/volume] in Serum o r Plasma by Immunoassay 18 m[IU]/mL >11.4 [facility] ReactiveImmunity due to hepatitis B immu nization or natural infection. ID Date Data Source [id number] 03/09/2020 01:27:49 PM [facility] Value Range Interpretation Code Description Data Maria Antonia rce(s) Supporting Document(s) Neutrophil cytoplasmic Ab [Presence] in Serum by Immunofluoresce nce Negative [facility] ID Date Data Source [id number] 03/09/2020 02:21:54 PM [facility] Value Range Interpretation Code Description Data Maria Antonia rce(s) Supporting Document(s) Mitochondria Ab [Units/volume] in Serum Negative [facility] ID Date Data Source [id number] 03/09/2020 02:21:54 PM [facility] Value Range Interpretation Code Description Data Maria Antonia rce(s) Supporting Document(s) Actin smooth muscle IgG Ab [Units/volume] in Serum Negativ e [facility] ID Date Data Source [id number] 03/08/2020 07:37:50 AM [facility] Value Range Interpretation Code Description Data Maria Antonia rce(s) Supporting Document(s) Prothrombin time (PT) 30.9 s 12.5-14.9 H [facility] INR in Platelet poor plasma by Coagulation assay 2.89 [facility] Routine intensity oral anticoagulation I NR is typically 2.0-3.0. Target INR must be clinically individualized. ID Date Data Source [id number] 03/08/2020 08:10:23 AM [facility] Value Range Interpretation Code Description Data Maria Antonia rce(s) Supporting Document(s) Acetaminophen [Mass/volume] in Serum or Plasma 10.0-30.0 L [facility] ID Date Data Source [id number] 03/08/2020 08:10:23 AM [facility] Value Range Interpretation Code Description Data Maria Antonia rce(s) Supporting Document(s) Alanine aminotransferase [Enzymatic activity/volume] in Seru m or Plasma 432 U/L <41 H [facility] ID Date Data Source [id number] 03/08/2020 08:10:23 AM [facility] Name Value Range Interpretation Code Description Data Maria Antonia rce(s) Supporting Document(s) Aspartate aminotransferase [Enzymatic activity/volume] in Serum or Plasma 469 U/L <40 H [facility] ID Date Data Source [id number] 03/08/2020 08:10:23 AM [facility] Value Range Interpretation Code Description Data Maria Antonia rce(s) Supporting Document(s) Alkaline phosphatase [Enzymatic activity/volume] in Serum or Plasma 76 U/L 40-129 [facility] ID Date Data Source [id number] 03/08/2020 08:10:23 AM [facility] Value Range Interpretation Code Description Data Maria Antonia rce(s) Supporting Document(s) Albumin [Mass/volume] in Serum or Plasma by Bromocresol green (BCG) dye binding method 1.9 g/dL 3.5-5.2 [facility] Sodium [Moles/volume] in Serum or Plasma 130 mmol/L 136-145 L [facility] Potassium [Moles/volume] in Serum or Plasma 4.0 mmol/L 3.4-5.1 [facility] Chloride [Moles/volume] in Serum or Plasma 104 mmol/L 98-107 [facility] Bicarbonate [Moles/volume] in Serum 19 mmol/L 22-29 [facility] Glucose [Mass/volume] in Serum or Plasma 270 mg/dL 70-140 H [facility] Urea nitrogen [Mass/volume] in Serum or Plasma 13 mg/dL 8-23 [facility] Creatinine [Mass/volume] in Serum or Plasma 0.73 mg/dL 0.70-1.20 [facility] Calcium [Mass/volume] in Serum or Plasma 7.9 mg/dL 8.8-10.2 [facility] Phosphate [Mass/volume] in Serum or Plasma 2.3 mg/dL 2.5-4.5 [facility] Glomerular filtration rate/1.73 sq M pre dicted among non-blacks [Volume Rate/Area] in Serum or Plasma by Creatinine-based formula (MDRD) >6 0 [facility] Glomerular filtration rate/1.73 sq M pre dicted among blacks [Volume Rate/Area] in Serum or Plasma by Creatinine-based formula (MDRD) >60 [facility] ID Date Data Source [id number] 03/08/2020 08:10:23 AM [facility] Value Range Interpretation Code Description Data Maria Antonia rce(s) Supporting Document(s) Bilirubin.total [Mass/volume] in Serum or Plasma 2.2 mg/dL <1.2 H [facility] ID Date Data Source [id number] 03/08/2020 08:10:23 AM [facility] Value Range Interpretation Code Description Data Maria Antonia rce(s) Supporting Document(s) Ferritin [Mass/volume] in Serum or Plasma 170 ng/ml 30-400 [facility] ID Date Data Source [id number] 03/08/2020 08:10:23 AM [facility] Value Range Interpretation Code Description Data Maria Antonia rce(s) Supporting Document(s) Bilirubin.direct [Mass/volume] in Serum or Plasma 0.7 mg/dL <0.3 H [facility] ID Date Data Source [id number] 03/08/2020 08:10:23 AM [facility] Value Range Interpretation Code Description Data Maria Antonia rce(s) Supporting Document(s) Protein [Mass/volume] in Serum or Plasma 5.3 g/dL 6.4-8.3 L [facility] ID Date Data Source [id number] 03/08/2020 08:10:23 AM [facility] Value Range Interpretation Code Description Data Maria Antonia rce(s) Supporting Document(s) Salicylates [Mass/volume] in Serum or Plasma 3.0-30.0 L [facility] ID Date Data Source [id number] 03/08/2020 10:14:48 AM [facility] Value Range Interpretation Code Description Data Maria Antonia rce(s) Supporting Document(s) Alpha 1 antitrypsin [Mass/volume] in Serum or Plasma 110 mg/dl 90-20 0 [facility] ID Date Data Source [id number] 03/08/2020 10:14:48 AM [facility] Value Range Interpretation Code Description Data Maria Antonia rce(s) Supporting Document(s) Ceruloplasmin [Mass/volume] in Serum or Plasma 16 mg/dl 15-30 [facility] ID Date Data Source [id number] 03/08/2020 11:28:28 AM [facility] Name Value Range Interpretation Code Description Data Maria Antonia rce(s) Supporting Document(s) Natriuretic peptide.B prohormone N-Terminal [Mass/volu me] in Serum or Plasma 805 pg/mL <125 H [facility] ID Date Data Source [id number] 03/08/2020 11:50:41 AM [facility] Name Value Range Interpretation Code Description Data Maria Antonia rce(s) Supporting Document(s) Fibrin D-dimer FEU [Mass/volume] in Platelet poor plas ma by Immunoassay 0.57 ug/mL{FEU} <0.50 H [facility] ID Date Data Source [id number] 03/08/2020 03:01:46 PM [facility] Value Range Interpretation Code Description Data Maria Antonia rce(s) Supporting Document(s) Lactate dehydrogenase [Enzymatic activit y/volume] in Serum or Plasma by Lactate to pyruvate reaction 1330 U/L 122-225 H [facility] Confirmed ID Date Data Source [id number] 03/08/2020 05:17:56 AM [facility] Value Range Interpretation Code Description Data Maria Antonia rce(s) Supporting Document(s) Leukocytes [#/volume] in Blood by Automated count 7.0 10*3/uL 4-10 [facility] Erythrocytes [#/volume] in Blood by Automated count 3.33 10*6/uL 4.6- 6.1 [facility] Hemoglobin [Mass/volume] in Blood 11.4 g/dL 13.5-18 L [facility] Hematocrit [Volume Fraction] of Blood by Automated count 33.5 % 4 1-53 [facility] Erythrocyte mean corpuscular volume [Entitic volume] b y Automated count 100.7 fL 80-96 H [facility] Erythrocyte mean corpuscular hemoglobin [Entitic mass] by Automated count 34.2 pg 27-33 H [facility] Erythrocyte mean corpuscular hemoglobin concentration [Mass/volume] by Automated count 34.0 g/dL 32.0-36.0 [facility] Erythrocyte distribution width [Ratio] by Automated count 16.6 % 11.5-14.5 [facility] Platelets [#/volume] in Blood by Automated count 90 10*3/uL 150-400 L [facility] ID Date Data Source [id number] 03/08/2020 05:34:12 AM [facility] Name Value Range Interpretation Code Description Data Maria Antonia rce(s) Supporting Document(s) Albumin [Mass/volume] in Serum or Plasma by Bromocresol green (BCG) dye binding method 2.0 g/dL 3.5-5.2 [facility] Bilirubin.total [Mass/volume] in Serum or Plasma 2.2 mg/dL <1.2 H [facility] Calcium [Mass/volume] in Serum or Plasma 7.8 mg/dL 8.8-10.2 L [facility] Chloride [Moles/volume] in Serum or Plasma 107 mmol/L 98-107 [facility] Creatinine [Mass/volume] in Serum or Plasma 0.71 mg/dL 0.70-1.20 [facility] Glucose [Mass/volume] in Serum or Plasma 274 mg/dL 70-140 H [facility] Alkaline phosphatase [Enzymatic activity/volume] in Serum or Plasma 80 U/L 40-129 [facility] Potassium [Moles/volume] in Serum or Plasma 4.0 mmol/L 3.4-5.1 [facility] Protein [Mass/volume] in Serum or Plasma 5.2 g/dL 6.4-8.3 L [facility] Sodium [Moles/volume] in Serum or Plasma 133 mmol/L 136-145 L [facility] Aspartate aminotransferase [Enzymatic activity/volume] in Serum or Plasma 501 U/L <40 H [facility] Urea nitrogen [Mass/volume] in Serum or Plasma 14 mg/dL 8-23 [facility] Osmolality of Serum or Plasma by calculation 286 mosm/kg 275-300 [facility] Creatinine/Urea nitrogen [Mass Ratio] in Serum or Plasma 20 [facility] Bicarbonate [Moles/volume] in Serum 19 mmol/L 22-29 L [facility] Alanine aminotransferase [Enzymatic activity/volume] in Seru m or Plasma 441 U/L <41 H [facility] Anion gap 3 in Serum or Plasma 7 mmol/L 8-15 L [facility] Glomerular filtration rate/1.73 sq M pre dicted among non-blacks [Volume Rate/Area] in Serum or Plasma by Creatinine-based formula (MDRD) >6 0 [facility] Glomerular filtration rate/1.73 sq M pre dicted among blacks [Volume Rate/Area] in Serum or Plasma by Creatinine-based formula (MDRD) >60 [facility] ID Date Data Source [id number] 03/07/2020 09:33:42 PM [facility] Value Range Interpretation Code Description Data Maria Antonia rce(s) Supporting Document(s) Glucose [Mass/volume] in Capillary blood by Glucometer 300 mg/dL 70- 140 H [facility] ID Date Data Source [id number] 03/07/2020 09:33:42 PM [facility] Value Range Interpretation Code Description Data Maria Antonia rce(s) Supporting Document(s) Glucose [Mass/volume] in Capillary blood by Glucometer 314 mg/dL 70- 140 [facility] ID Date Data Source [id number] 03/07/2020 06:05:04 PM [facility] Value Range Interpretation Code Description Data Maria Antonia rce(s) Supporting Document(s) Glucose [Mass/volume] in Capillary blood by Glucometer 264 mg/dL 70- 140 [facility] ID Date Data Source [id number] 03/07/2020 04:39:38 PM [facility] Value Range Interpretation Code Description Data Maria Antonia rce(s) Supporting Document(s) Glucose [Mass/volume] in Capillary blood by Glucometer 233 mg/dL 70- 140 [facility] ID Date Data Source [id number] 03/07/2020 11:49:44 AM [facility] Value Range Interpretation Code Description Data Maria Antonia rce(s) Supporting Document(s) Glucose [Mass/volume] in Capillary blood by Glucometer 326 mg/dL 70- 140 [facility] ID Date Data Source [id number] 03/07/2020 08:33:10 AM [facility] Value Range Interpretation Code Description Data Maria Antonia rce(s) Supporting Document(s) Glucose [Mass/volume] in Capillary blood by Glucometer 315 mg/dL 70- 140 [facility] ID Date Data Source [id number] 03/07/2020 01:46:37 AM [facility] Value Range Interpretation Code Description Data Maria Antonia rce(s) Supporting Document(s) History and Physical [facility] AKOQUj0dCgSCDbFi89/RPOziSKAli6VyPGzxDPb7HTliBOMuB2JkMYP1nQ7vLOP3QLaCBeCaNvDiRYSb lbm [file] IAQbP2gEXSMtVX9J6GeCaVUTOpaNy11DBiW2XdkM8wMrkaxtfa7h9TpEnYHcMXi6Eyg+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] AgICAgICAgICAgICAgICAgICAgICAgICAgICAgICAgICAgICAgICAgICAgICAgICAgICAgICAgICAgIC AgICAgICAgICAgICAgICAgICAgICAgDQogICAgICAgICAgICAgICAgICAgICAgICAgICAgICAgICAgIC AgICAgICAgICAgICAgICAgICAgICAgICAgICAgICAg ICAgICAgICAgICAgICAgICAgICAgICAgICAgICAgICAgDQogICAgICAgICAgICAgICAgICAgICAgICAg ICAgICAgICAgICAgICAgICAgICAgICAgICAgICAgICAgICAgICAgICAgICAgICAgICAgICAgICAgICAg ICAgICAgICAgICAgICAgDQogICAgICAgICAgICAgIC AgICAgICAgICAgICAgICAgICAgICAgICAgICAgICAgICAgICAgICAgICAgICAgICAgICAgICAgICAgIC AgICAgICAgICAgICAgICAgICAgICAgICAgDQogICAgICAgICAgICAgICAgICAgICAgICAgICAgICAgIC AgICAgICAgICAgICAgICAgICAgICAgICAgICAgICAg ICAgICAgICAgICAgICAgICAgICAgICAgICAgICAgICAgICAgDQogICAgICAgICAgICAgICAgICAgICAg ICAgICAgICAgICAgICAgICAgICAgICAgICAgICAgICAgICAgICAgICAgICAgICAgICAgICAgICAgICAg ICAgICAgICAgICAgICAgICAgDQogICAgICAgICAgIC AgICAgICAgICAgICAgICAgICAgICAgICAgICAgICAgICAgICAgICAgICAgICAgICAgICAgICAgICAgIC AgICAgICAgICAgICAgICAgICAgICAgICAgICAgDQogICAgICAgICAgICAgICAgICAgICAgICAgICAgIC AgICAgICAgICAgICAgICAgICAgICAgICAgICAgICAg ICAgICAgICAgICAgICAgICAgICAgICAgICAgICAgICAgICAgICAgDQogICAgICAgICAgICAgICAgICAg ICAgICAgICAgICAgICAgICAgICAgICAgICAgICAgICAgICAgICAgICAgICAgICAgICAgICAgICAgICAg ICAgICAgICAgICAgICAgICAgICAgDQogICAgICAgIC AgICAgICAgICAgICAgICAgICAgICAgICAgICAgICAgICAgICAgICAgICAgICAgICAgICAgICAgICAgIC CiYBPmVWYtEYQlSKEfBVPdUUWgJGYlXBYoHQQqULIsMUf9V3ipQZRwPVLmFL9vSOz5Sv3+DQoNCmVuZH E5bbMvfT1MSK2py2DeZMbxCYFrt8DnMUx7AH9JLYUd KBksYW0ZLJvnnl0XILKpRLIlbWXQt5nlAeVsQDM3OQTaLmkfDS7HGJLvF0pkfqCeCSWoJSOFYSumRMKR HNzqDQDKZLOfEHAjPaNdPsHyMUKlHQQgZAEBWB7EEgZmL1XvkZ43UCLORc0+LKepluCjLqgFSwJ4KPQi l3DjNVf5IB2PLCGxUcjqn5QdWkyiZBZUPHerCC7QFF D8ELL5HQUaUs5BJYNoA573miOqHO0UWy9HWmGeLP4hib9TOoajKZPwUdaNHlx3QQmpSG7AhMNpFBvGQk OuUeogPT9fPCIzc29pBI32Lz9qydauXVVGKwGphYMiJqBjKrNjECJoBJklLeGJYVpCUwBoS7Gnp2DuOp R3TLJhArBgUVdiHJLkArQ6VM88jBpqLO4SBNHeBHFw QX22BKR2BRWvZu6OGl9QUaOkFL6tfw5TOFDpQTQlJkfRCkv7XOlnGV1PdAMxB0RefBXat0iFJfAaK7QP VBS4ATOhZk2NZMMtKmSwSJXsPFhpHH7pQIMrARVSmDsnmnI7AR8QWX0eiaMqIM4QExCxEd1hKj5ZYcGa C1BfW5BlEXUmIPEEJMnbNK4XCCaaLL5tPE1He5KCuN NjqG3zeu4VSDZvIKImQimyfs3LQxntW3S4wHgyUWBnJafeJZEMUDbpTP3BXNXhQEV4UFXhOaVfXQOQVg HfS48iMZ2LG5Zpz91uEoP0OCVxFnKeXWhcEB98jXkhceMihFDqqKnkDC5MTt1+DQplbmRvYmoNCnhyZW ZWPjHaUBFSDqWdLAUhGZSxDOOaVcZ6RkVzJv6TKNBg HKObECAwDtEjMCThFDCbVAufRVJyXURfRLFxMBJpYRMxUX8FUjZnSKVsJSO4XWjlMLPcOCJfwq1CITHp WOHbROG6UaDlMLLaZTIkFEsjEENvGJZfTWx1VUTlOLLxGI0CGbVvIQBeIYSfSGNyUCXuJKSpkf9XVIWq BVDwUHT2KyFwCGXtGOEeVPodQJVaJNN8YCi0QBUwPQ KoJR3HZqPyZUPbNBE8VXytPWJjLXLmds5ZNZMiVICvYWz5CRNmCEXhDSIwTEsrWDBbSCZ2MFK9OFZaKY UnLF0VBmWuENKxCWVyIuYkAQDbDIMllb3AWYFpMUToYEAnKUFnQXYhACDgGKxaIHYsWZT4ZaFpDQEvEG UkFZ0QKoRqUIUaSrJ6UJlhVHSsDNScar7BWPSgTRWn BEEyWYXiDOQcNAHsQHciWEOrJFCxFJj5PUXfBZRlLJ1BSsFeYOWaMjRuOTOhZHJeBABipy7RZUJcNZOy GuO8WAQtWIYdIREfVIaoCKChBYWnYpZcSMDzKLQyWL6ZZxRaUZGpQvS5WlXiZDOdBIKaiv1KXTLgZUKy HqndEkUwZERiJLNaGIehCTTqOAW2FdnfUGNmTXDgUM 6SPrPeQBRpEgG8BhMlNOGkQYRfnu2XOYUaZFBfRIA1XyAsHQYrDFZxUDqpWHVsFSX0ZVDcATCtNVKhIW 2ZPnChXWZcTqWjNTSzDSPnMXBppb6RDIJaDJFiZpUfGdGcUTVgXLXiPRwrEABmTPQ4Mji3YMIkZIGyBS 1ACgQpVMLxZasmLCArTEGbGRAoax2ZZXSnCYVwGCYw GQSqURXuMDYgPYabZCJjUWQ6ZBRhAYYkJSYmXJ4TKcSiGNNmAvd4PZjcNKKlSUNrsc2LUNMsUBGqSRX2 UaAfRKOrKQNmNImeOLCyPKS8LFJtMYTnUZQqYZ6XQsNeBULzFVAiKQugOUSxBQGlal4ISSKcSRP2EZU3 ISChPTTeKIWpOSfjHTTaYFNvPDQ2QTMwIWMxBQ0WQt JuHYIxQKYgWPUcAEGmMMIjeu5OJTYiHCH8XjQ1NOTfVSZnECXjIEy3eeTfeYCgGWx0WF2EF7RrlqAkGN EABl5Kb348WTOjHROuOz6WS5eqMt1xVVQaQUSXZc5OZKb6APOiRWpeWNRmNkH2YNJlIKFmNpP3HSX0ZF c0ELJkIHS+EOx3PAWiDPE9BWRcPFntDeF4L3R6Oaj4 ZzT8JWnaWZD8PD1dGIHIEl3+VWmsyAPcoCkrIUJNTbVmEem6CAmhZXVZPp4Z ID Date Data Source [id number] 03/07/2020 03:17:54 AM [facility] Name Value Range Interpretation Code Description Data Maria Antonia rce(s) Supporting Document(s) Ethanol [Mass/volume] in Serum or Plasma Negative [facility] ID Date Data Source [id number] 03/07/2020 02:17:20 AM [facility] Name Value Range Interpretation Code Description Data Maria Antonia rce(s) Supporting Document(s) Leukocytes [#/volume] in Blood by Automated count 6.8 10*3/uL 4-10 [facility] Erythrocytes [#/volume] in Blood by Automated count 3.38 10*6/uL 4.6- 6.1 L [facility] Hemoglobin [Mass/volume] in Blood 11.5 g/dL 13.5-18 L [facility] Hematocrit [Volume Fraction] of Blood by Automated count 33.7 % 4 1-53 L [facility] Erythrocyte mean corpuscular volume [Entitic volume] by Auto mated count 99.8 fL 80-96 H [facility] Erythrocyte mean corpuscular hemoglobin [Entitic mass] by Automated count 34.0 pg 27-33 H [facility] Erythrocyte mean corpuscular hemoglobin concentration [Mass/volume] by Automated count 34.0 g/dL 32.0-36.0 [facility] Erythrocyte distribution width [Ratio] by Automated count 16.3 % 11.5-14.5 [facility] Platelets [#/volume] in Blood by Automated count 82 10*3/uL 150-400 L [facility] ID Date Data Source [id number] 03/07/2020 02:52:13 AM [facility] Name Value Range Interpretation Code Description Data Maria Antonia rce(s) Supporting Document(s) Albumin [Mass/volume] in Serum or Plasma by Bromocresol green (BCG) dye binding method 1.9 g/dL 3.5-5.2 L [facility] Bilirubin.total [Mass/volume] in Serum or Plasma 1.8 mg/dL <1.2 H [facility] Calcium [Mass/volume] in Serum or Plasma 7.8 mg/dL 8.8-10.2 [facility] Chloride [Moles/volume] in Serum or Plasma 103 mmol/L 98-107 [facility] Creatinine [Mass/volume] in Serum or Plasma 0.78 mg/dL 0.70-1.20 [facility] Glucose [Mass/volume] in Serum or Plasma 336 mg/dL 70-140 H [facility] Alkaline phosphatase [Enzymatic activity/volume] in Serum or Plasma 85 U/L 40-129 [facility] Potassium [Moles/volume] in Serum or Plasma 4.5 mmol/L 3.4-5.1 [facility] Protein [Mass/volume] in Serum or Plasma 5.3 g/dL 6.4-8.3 [facility] Sodium [Moles/volume] in Serum or Plasma 133 mmol/L 136-145 [facility] Aspartate aminotransferase [Enzymatic activity/volume] in Serum or Plasma 852 U/L <40 H [facility] Confirmed Urea nitrogen [Mass/volume] in Serum or Plasma 14 mg/dL 8-23 [facility] Osmolality of Serum or Plasma by calculation 289 mosm/kg 275-300 [facility] Creatinine/Urea nitrogen [Mass Ratio] in Serum or Plasma 18 [facility] Bicarbonate [Moles/volume] in Serum 22 mmol/L 22-29 [facility] Alanine aminotransferase [Enzymatic activity/volume] in Seru m or Plasma 505 U/L <41 H [facility] Anion gap 3 in Serum or Plasma 9 mmol/L 8-15 [facility] Glomerular filtration rate/1.73 sq M pre dicted among non-blacks [Volume Rate/Area] in Serum or Plasma by Creatinine-based formula (MDRD) >6 0 [facility] Glomerular filtration rate/1.73 sq M pre dicted among blacks [Volume Rate/Area] in Serum or Plasma by Creatinine-based formula (MDRD) >60 [facility] ID Date Data Source [id number] 03/07/2020 10:12:22 AM [facility] Name Value Range Interpretation Code Description Data Maria Antonia rce(s) Supporting Document(s) Creatine kinase [Enzymatic activity/volume] in Serum or Plasma 1 4700 U/L 20-200 H [facility] Confirmed ID Date Data Source [id number] 03/07/2020 05:41:54 AM [facility] Name Value Range Interpretation Code Description Data Maria Antonia rce(s) Supporting Document(s) Color of Urine [facility] Clarity of Urine [facility] Specific gravity of Urine by Refractometry automated 1.005 1.003 -1.030 [facility] pH of Urine by Automated test strip 5.0 5.0-8.0 [facility] Protein [Mass/volume] in Urine by Automated test strip Neg [facility] Glucose [Mass/volume] in Urine by Automated test strip Neg [facility] Ketones [Mass/volume] in Urine by Automated test strip Neg [facility] Bilirubin.total [Presence] in Urine by Automated test strip Negative [facility] Hemoglobin [Presence] in Urine by Automated test strip Neg [facility] A [facility] Leukocyte esterase [Presence] in Urine by Automated test strip Negative [facility] Nitrite [Presence] in Urine by Automated test strip Negati ve [facility] Leukocytes [#/area] in Urine sediment by Automated count 1 /HPF 0 -5 [facility] Erythrocytes [#/area] in Urine sediment by Automated count 6 /HPF 0-3 H [facility] Bacteria [#/area] in Urine sediment by Automated count Non [facility] Epithelial cells.squamous [#/area] in Urine sediment by Automate d count [facility] Mucus [#/area] in Urine sediment by Microscopy low power field [facility] Spermatozoa [#/area] in Urine sediment by Microscopy high po wer field 2 /[HPF] [facility] ID Date Data Source [id number] 03/06/2020 11:38:58 PM [facility] US ABDOMEN LIMITED [id number] RESULTInte rpreted by:BRANDON FigueroaPROCEDURE INFORMATION: Exam: US [...] RNA [place] This lab was ordered by [facility] and reported by [facility]. 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 [facility] Patient has symptoms related to condition [facility] When did you start to experience these symptoms [Date and time] [Phen X] [facility] Patient was hospitalized because of this condition [facility] patient was admitted to ICU for condition [facility] Patient resides in a congregate care setting [facility] status [facility] ID Date Data Source [id number] 03/07/2020 12:10:51 AM [facility] Name Value Range Interpretation Code Description Data Maria Antonia rce(s) Supporting Document(s) Bicarbonate [Moles/volume] in Serum 20 mmol/L 22-29 L [facility] Chloride [Moles/volume] in Serum or Plasma 103 mmol/L 98-107 [facility] Creatinine [Mass/volume] in Serum or Plasma 0.77 mg/dL 0.70-1.20 [facility] Glucose [Mass/volume] in Serum or Plasma 317 mg/dL 70-140 H [facility] Potassium [Moles/volume] in Serum or Plasma 4.9 mmol/L 3.4-5.1 [facility] Hemolyzed Sodium [Moles/volume] in Serum or Plasma 133 mmol/L 136-145 L [facility] Urea nitrogen [Mass/volume] in Serum or Plasma 13 mg/dL 8-23 [facility] Anion gap 3 in Serum or Plasma 9 mmol/L 8-15 [facility] Osmolality of Serum or Plasma by calculation 288 mosm/kg 275-300 [facility] Creatinine/Urea nitrogen [Mass Ratio] in Serum or Plasma 17 [facility] Calcium [Mass/volume] in Serum or Plasma 7.8 mg/dL 8.8-10.2 L [facility] Glomerular filtration rate/1.73 sq M pre dicted among non-blacks [Volume Rate/Area] in Serum or Plasma by Creatinine-based formula (MDRD) >6 0 [facility] Glomerular filtration rate/1.73 sq M pre dicted among blacks [Volume Rate/Area] in Serum or Plasma by Creatinine-based formula (MDRD) >60 [facility] ID Date Data Source [id number] 03/07/2020 12:29:32 AM [facility] Value Range Interpretation Code Description Data Maria Antonia rce(s) Supporting Document(s) Albumin [Mass/volume] in Serum or Plasma by Bromocresol green (BCG) dye binding method 1.9 g/dL 3.5-5.2 [facility] Bilirubin.total [Mass/volume] in Serum or Plasma 1.6 mg/dL <1.2 H [facility] Bilirubin.direct [Mass/volume] in Serum or Plasma 0.5 mg/dL <0.3 H [facility] Alkaline phosphatase [Enzymatic activity/volume] in Serum or Plasma 88 U/L 40-129 [facility] Aspartate aminotransferase [Enzymatic activity/volume] in Serum or Plasma 897 U/L <40 H [facility] Confirmed Alanine aminotransferase [Enzymatic activity/volume] in Seru m or Plasma 506 U/L <41 H [facility] Protein [Mass/volume] in Serum or Plasma 5.4 g/dL 6.4-8.3 L [facility] ID Date Data Source [id number] 03/07/2020 12:29:32 AM [facility] Value Range Interpretation Code Description Data Maria Antonia rce(s) Supporting Document(s) Creatine kinase [Enzymatic activity/volume] in Serum or Plasma 1 6166 U/L 20-200 H [facility] Confirmed ID Date Data Source [id number] 03/06/2020 11:56:27 PM [facility] Value Range Interpretation Code Description Data Maria Antonia rce(s) Supporting Document(s) Prothrombin time (PT) 45.6 s 12.5-14.9 H [facility] INR in Platelet poor plasma by Coagulation assay 4.72 [facility] Routine intensity oral anticoagulation I NR is typically 2.0-3.0. Target INR must be clinically individualized. ID Date Data Source [id number] 03/06/2020 11:42:13 PM [facility] Value Range Interpretation Code Description Data Maria Antonia rce(s) Supporting Document(s) Leukocytes [#/volume] in Blood by Automated count 6.9 10*3/uL 4-10 [facility] Erythrocytes [#/volume] in Blood by Automated count 3.39 10*6/uL 4.6- 6.1 L [facility] Hemoglobin [Mass/volume] in Blood 11.6 g/dL 13.5-18 L [facility] Hematocrit [Volume Fraction] of Blood by Automated count 34.0 % 4 1-53 L [facility] Erythrocyte mean corpuscular volume [Entitic volume] b y Automated count 100.4 fL 80-96 H [facility] Erythrocyte mean corpuscular hemoglobin [Entitic mass] by Automated count 34.1 pg 27-33 H [facility] Erythrocyte mean corpuscular hemoglobin concentration [Mass/volume] by Automated count 34.0 g/dL 32.0-36.0 [facility] Erythrocyte distribution width [Ratio] by Automated count 16.4 % 11.5-14.5 H [facility] Platelets [#/volume] in Blood by Automated count 79 10*3/uL 150-400 L [facility] Differential cell count method - Blood [facility] Neutrophils/100 leukocytes in Blood by Automated count 65 % [facility] Lymphocytes/100 leukocytes in Blood by Automated count 16 % [facility] Monocytes/100 leukocytes in Blood by Automated count 14 % [facility] Eosinophils/100 leukocytes in Blood by Automated count 4 % [facility] Basophils/100 leukocytes in Blood by Automated count 1 % [facility] Neutrophils [#/volume] in Blood by Automated count 4.44 10*3/uL 1.8-7 .0 [facility] Lymphocytes [#/volume] in Blood by Automated count 1.09 10*3/uL 1.2-4 .0 [facility] Monocytes [#/volume] in Blood by Automated count 0.94 10*3/uL 0-0.8 [facility] Eosinophils [#/volume] in Blood by Automated count 0.30 10*3/uL 0-0.5 [facility] Basophils [#/volume] in Blood by Automated count 0.08 10*3/uL 0-0.2 [facility] Nucleated erythrocytes/100 leukocytes [Ratio] in Blood by Automated count 0 /100{WBCs} 0-0 [facility] ID Date Data Source [id number] 03/07/2020 03:14:13 AM [facility] Name Value Range Interpretation Code Description Data Maria Antonia rce(s) Supporting Document(s) Hepatitis C virus Ab [Presence] in Serum or Plasma by Immuno assay Non Reactive A [facility] Past or current Hepatitis C infection. S jacinton forwarded to reference laboratory for quantitative HCV RNA testing. ID Date Data Source [id number] 03/06/2020 09:28:51 PM EST [facility] Name Value Range Interpretation Code Description Data Maria Antonia rce(s) Supporting Document(s) Glucose [Mass/volume] in Capillary blood by Glucometer 293 mg/dL 70- 140 H [facility] ID Date Data Source [id number] 03/05/2020 02:20:00 PM EST [facility] Name Value Range Interpretation Code Description Data Maria Antonia rce(s) Supporting Document(s) SARS coronavirus 2 RNA [Presence] in Res piratory specimen by ARAM with probe [facility] This lab was ordered by [facility] a nd reported by [facility]. Procedure Social History Code Duration Value Status Description Data Source(s ) Alcohol intake 03/06/2020 12:00:00 AM EST Ex-drinker (finding) comp leted Ex- drinker (finding) [facility] Smoking 03/06/2020 12:00:00 AM EST Unknown if ever smoked comp leted Unknown if ever smoked [facility] Vital Signs ID Date Data Source [id number] 03/17/2020 07:53:41 AM EST [facility] Name Value Range Interpretation Code Description Data Source(s) WEIGHT RECORDED 156 lb 156 lb [facility] Body height Measured 70 in 70 in [facility] WEIGHT RECORDED 154.6 lb 154.6 lb [facility] Body height Measured 70 in 70 in [facility] TRANSFER FROM [facility] Patient Treatment Plan of Care Planned Activity Planned Date Details Description Data Source (s) Insulin, Aspart, Human 100 UNT/ML Injectable Solution 09/20/2020 12:00:00 AM [facility] 3 ML Insulin Glargine 100 UNT/ML Pen Injector 09/20/2020 12:00:00 A M [facility] quetiapine 25 MG Oral Tablet 09/19/2020 10:00:00 AM [facility] Acetaminophen 325 MG Oral Tablet 09/17/2020 11:58:43 AM [facility] Ozempic (0.25 or 0.5 MG/DOSE) 2 MG/1.5ML Subcutaneous Solution Pen-injector (semaglutide) 09/17/2020 12:00:00 AM EDT [facility] dextrose 50 % IV solution 25 mL 09/16/2020 08:35:03 AM [facility] Glucagon 1 MG Injection 09/16/2020 08:35:03 AM [facility] Glucose 0.417 MG/MG Oral Gel 09/16/2020 08:35:03 AM [facility] Metoprolol Tartrate 1 MG/ML Injectable Solution 09/13/2020 05:28:33 PM [facility] albuterol (PROVENTIL HFA) inhaler 2 puff 09/12/2020 03:59:11 PM [facility] Insulin Aspart FlexPen 100 UNIT/ML 07/20/2020 01:00:00 AM EDT [facility]) Lantus SoloStar 100 UNIT/ML 07/20/2020 01:00:00 AM EDT [facility]) Aspirin EC 81 MG 07/20/2020 01:00:00 AM EDT [facility]) Capsaicin 0.025 % 07/20/2020 01:00:00 AM EDT [facility]) Ergocal 2500 UNIT 07/20/2020 01:00:00 AM EDT [facility]) Folic Acid 1 MG 07/20/2020 01:00:00 AM EDT [facility]) Lactulose 10 GM/15ML 07/20/2020 01:00:00 AM EDT [facility]) Metoprolol Tartrate 25 MG 07/20/2020 01:00:00 AM EDT [facility]) Multi Vitamin 07/20/2020 01:00:00 AM EDT [facility]) Pantoprazole Sodium 40 MG 07/20/2020 01:00:00 AM EDT [facility]) Pregabalin 150 MG 07/20/2020 01:00:00 AM EDT [facility]) Xifaxan 550 MG 07/20/2020 01:00:00 AM EDT [facility]) Spironolactone 100 MG 07/20/2020 01:00:00 AM EDT [facility] Thiamine HCl 100 MG 07/20/2020 01:00:00 AM EDT [facility] ([facility]) oxyCODONE HCl 5 MG 07/20/2020 01:00:00 AM EDT [facility] ([facility]) Spironolactone 100 MG Oral Tablet 03/11/2020 12:00:00 AM [facility] Furosemide 40 MG Oral Tablet 03/11/2020 12:00:00 AM [facility] dextrose 50 % IV solution 25 mL 03/06/2020 09:52:55 PM [facility] Glucagon 1 MG Injection 03/06/2020 09:52:55 PM [facility] Glucose 0.417 MG/MG Oral Gel 03/06/2020 09:52:55 PM [facility] 3 ML Insulin Glargine 100 UNT/[facility], Aspart, Human 100 UNT/[facility]
[2021-01-10 16:08] LABS: OSMOLALITY SERUM 297 MOSM/KG (280-301)
[2021-01-10 16:16] LABS: ACETAMINOPHEN LEVEL < 2.0 UG/ML (10.0-30.0); ALT/SGPT 20 U/L (12-78); BILIRUBIN,DIRECT 0.3 MG/DL (0.0-0.2); BILIRUBIN,TOTAL 0.9 MG/DL (0.2-1.0); BLOOD UREA NITROGEN 12 MG/DL (7-18); CALCIUM LEVEL 9.4 MG/DL (8.8-10.2); CARBON DIOXIDE LEVEL 23 MEQ/L (21-32); CHLORIDE LEVEL 108 MEQ/L (98-107); CK-MB VALUE MASS < 1.0 NG/ML (<3.6); CPK CREATINE PHOSPHOKINASE 33 U/L (39-308); CREATININE FOR GFR 1.46 MG/DL (0.70-1.30); ETHYL ALCOHOL (ETHANOL) 0.004 % (0.000-0.010); GLOMERULAR FILTRATION RATE 51.9 (>49); GLUCOSE, FASTING 133 MG/DL (70-100); MAGNESIUM LEVEL 1.7 MG/DL (1.8-2.4); MB/CK RELATIVE INDEX 3.03 (< OR =4); POTASSIUM SERUM 4.3 MEQ/L (3.5-5.1); SALICYLATE LEVEL < 1.7 MG/DL (5.0-30.0); SODIUM LEVEL 142 MEQ/L (136-145); TOTAL PROTEIN 7.4 GM/DL (6.4-8.2); TROPONIN I 0.12 NG/ML (< 0.10)
--- NOTE | 2021-01-10 16:17 | REP ---
INDICATION: Altered Mental Status. COMPARISON: AP portable 10/05/2020, CT 03/11/2019. TECHNIQUE: AP portable upright. FINDINGS: Lungs better inflated than on the previous study. Underlying interstitial changes are noted. Heart is some left ventricular configuration without gross cardiomegaly. No effusion or definite dense consolidation with air bronchograms. Pulmonary arteries are prominent as on previous CTs may reflect some pulmonary artery hypertension on the basis of COPD. The aorta is tortuous but without gross aneurysm. Airway midline. Degenerative changes are seen in the spine. Old healed and remodeled the lateral clavicular fracture on the left noted. No free air under the diaphragm. IMPRESSION: 1. Coarsened interstitial markings suggesting some underlying COPD and fibrosis with left ventricular configuration of the heart but no sydni edema, pleural effusion or dense consolidation. Heavier fibrotic markings seen in the left than right base. <Electronically signed by Callum Ling > 01/10/21 [id number]
[2021-01-10] MEDS ORDERED: NS 1,000 ML IV ONE ×2 (17:15→18:45)
[2021-01-10 19:42] LABS: AMPHETAMINES LEVEL URINE NEGATIVE (NEGATIVE); BARBITURATES URINE NEGATIVE (NEGATIVE); BENZODIAZEPINES URINE NEGATIVE (NEGATIVE); CANNABINOIDS URINE NEGATIVE (NEGATIVE); COCAINE METABOLITE URINE NEGATIVE (NEGATIVE); METHADONE URINE NEGATIVE (NEGATIVE); OPIATES URINE POSITIVE (NEGATIVE); PHENCYCLIDINE URINE NEGATIVE (NEGATIVE)
[2021-01-10 20:23] LABS: CK-MB VALUE MASS 1.3 NG/ML (<3.6); MB/CK RELATIVE INDEX 4.19 (< OR =4); TROPONIN I 0.13 NG/ML (< 0.10)
[2021-01-10 20:45] VITALS: BP 139/87
--- NOTE | 2021-01-11 06:35 | ECGEPIP ---
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
== END 2021-01-10 21:00 | disposition left against medical advice (07) ==
LOC: M ED 13:36
DX: G93.41 Metabolic encephalopathy (principal); R79.89 Other specified abnormal findings of blood chemistry; E87.2 Acidosis; Z53.9 Procedure and treatment not carried out, unspecified reason; R91.8 Other nonspecific abnormal finding of lung field; R94.31 Abnormal electrocardiogram [ECG] [EKG]; E11.9 Type 2 diabetes mellitus without complications; K74.60 Unspecified cirrhosis of liver; B18.2 Chronic viral hepatitis C; I25.2 Old myocardial infarction; I10 Essential (primary) hypertension; F10.10 Alcohol abuse, uncomplicated; Z88.8 Allergy status to other drugs, medicaments and biological substances; Z79.899 Other long term (current) drug therapy

== ENCOUNTER 2021-07-22 12:09 | Inpatient (IN) | payer OTHER ==
[~2021-07-22] VITALS: Ht 177.8 cm; Wt 84.2 kg
[~2021-07-22 12:09] MED LIST changes: -LISI-898 PO; +LISI5TAB11 PO
[2021-07-22] MEDS ORDERED: METO37.5 PO (12:34)
[2021-07-22] MEDS ORDERED: FURO40TA2 PO (12:34)
[2021-07-22] MEDS ORDERED: PANT40TA29 PO (12:34)
[2021-07-22] MEDS ORDERED: THIA100T7 PO (12:34)
[2021-07-22] MEDS ORDERED: ONDANSETRON 4MG/2ML VIAL IV ONE (12:35)
[2021-07-22] MEDS ORDERED: NS 500 ML IV ONE (12:35)
[2021-07-22 13:16] LABS: BASO % 0.2 % (0.0-1.0); HEMATOCRIT 27.5 % (42.0-52.0); HEMOGLOBIN 8.9 g/dl (13.5-17.5); LYMPH # 0.9 10^3/uL (1.5-5.0); LYMPH % 3.9 % (24.0-44.0); MEAN CORPUSCULAR HEMOGLOBIN 25.5 pg (27.0-33.0); MEAN CORPUSCULAR HGB CONC 32.4 g/dl (32.0-36.5); MEAN CORPUSCULAR VOLUME 78.8 fl (80.0-96.0); MONO # 1.3 10^3/uL (0.0-0.8); MONO % 5.7 % (2.0-8.0); NEUTROPHILS # 19.8 10^3/uL (1.5-8.5); NEUTROPHILS % 88.9 % (36.0-66.0); PLATELET COUNT, AUTOMATED 145 10^3/uL (150-450); RED BLOOD COUNT 3.49 10^6/uL (4.30-6.10); WHITE BLOOD COUNT 22.3 10^3/uL (4.0-10.0)
[2021-07-22 13:26] LABS: INR 1.71; OSMOLALITY SERUM 297 MOSM/KG (280-301); PROTHROMBIN TIME 20.5 SECONDS (12.7-14.5)
[2021-07-22 13:27] LABS: PARTIAL THROMBOPLASTIN TIME 43.1 SECONDS (25.9-37.0)
[2021-07-22] MEDS ORDERED: cefTRIAXone SOD 2 GM in D5W MINI-BAG PLUS 50 ML IV ONE (13:30)
[2021-07-22] MEDS ORDERED: NS IV ONE (13:30)
[2021-07-22 13:35] LABS: ALBUMIN 2.6 GM/DL (3.2-5.2); ALT/SGPT 23 U/L (12-78); BILIRUBIN,DIRECT 0.8 MG/DL (0.0-0.2); BILIRUBIN,TOTAL 2.6 MG/DL (0.2-1.0); BLOOD UREA NITROGEN 23 MG/DL (7-18); CALCIUM LEVEL 8.7 MG/DL (8.8-10.2); CARBON DIOXIDE LEVEL 19 MEQ/L (21-32); CHLORIDE LEVEL 109 MEQ/L (98-107); CREATININE FOR GFR 1.26 MG/DL (0.70-1.30); GLOMERULAR FILTRATION RATE > 60.0 (>49); GLUCOSE, FASTING 311 MG/DL (70-100); POTASSIUM SERUM 3.8 MEQ/L (3.5-5.1); SODIUM LEVEL 138 MEQ/L (136-145); THYROID STIMULATING HORMONE 0.693 uIU/ML (0.358-3.740); TOTAL PROTEIN 6.2 GM/DL (6.4-8.2)
[2021-07-22] MEDS ORDERED: ISOVUE-370 76% 100ML VIAL As Ordered ONE (13:50)
[2021-07-22 14:01] LABS: LIPASE 67 U/L (73-393)
[2021-07-22] MEDS ORDERED: LevoFLOXacin IV 750 MG in IV 1 EA IV ONE (17:35)
[2021-07-22] MEDS ORDERED: THIAMINE 200MG 2ML VIAL IV SCH (18:25)
[2021-07-22] MEDS ORDERED: LEVE1INJ5 SC (18:58)
[2021-07-22] MEDS ORDERED: ALBUTEROL SULFATE 2.5 MG/0.5 ML INH NEB SOLN NEB PRN (19:00)
[2021-07-22] MEDS ORDERED: HOME MED LIST COMPLETE! XX SCH (19:00)
[2021-07-22 19:58] LABS: BLOOD UREA NITROGEN 20 MG/DL (7-18); CALCIUM LEVEL 8.7 MG/DL (8.8-10.2); CARBON DIOXIDE LEVEL 16 MEQ/L (21-32); CHLORIDE LEVEL 112 MEQ/L (98-107); CREATININE FOR GFR 1.13 MG/DL (0.70-1.30); GLOMERULAR FILTRATION RATE > 60.0 (>49); GLUCOSE, FASTING 360 MG/DL (70-100); LIPASE 125 U/L (73-393); POTASSIUM SERUM 3.9 MEQ/L (3.5-5.1); SODIUM LEVEL 141 MEQ/L (136-145)
[2021-07-22] MEDS: metroNIDAZOLE 500 MG in IV 1 EA IV SCH (19:58)
[2021-07-22] MEDS: LR 1,000 ML IV SCH (19:58)
[2021-07-22] MEDS: INSULIN LISPRO (NovoLOG) PER UNIT SC SCH ×2 (19:58→23:46)
[2021-07-22] MEDS ORDERED: IPRATROPIUM 0.5MG/ALBUTEROL 2.5MG INH SOL UD 3ML (DUONEB) NEB PRN (20:40)
[2021-07-22] MEDS ORDERED: NS 1,000 ML IV ONE (20:40)
[2021-07-22] MEDS ORDERED: ONDANSETRON 4MG ORAL DISINTEGRATING TAB SL PRN (21:25)
[2021-07-22 21:50] VITALS: BP 128/79
[2021-07-22] MEDS: THIAMINE INJection 500 MG in NS 100 ML IV SCH (22:38)
[2021-07-22] MEDS: rifAXIMin 550 MG TAB (XIFAXAN) PO SCH (22:40)
[2021-07-22] MEDS: PREGABALIN 75 MG CAP(LYRICA) PO SCH (22:40)
[2021-07-22] MEDS: METOPROLOL TART 12.5 MG PER 1/2 TAB PO SCH (22:40)
[2021-07-22] MEDS: LACTULOSE 20 GM/30 ML SYRUP UD PO SCH (22:40)
[2021-07-22] MEDS: HEPARIN SOD (PORCINE) 5000UNITS/ML 1ML VIAL/SYRINGE SQ SCH (22:42)
[2021-07-22] MEDS: MORPHINE 2 MG/ML 1ML VIAL IV PRN (22:42)
[2021-07-22] MEDS: ONDANSETRON 4MG/2ML VIAL IV PRN (22:42)
[2021-07-22 23:42] VITALS: BP 116/58
[2021-07-23] MEDS ORDERED: TAMSULOSIN 0.4 MG CAP PO ONE (01:45)
[2021-07-23] MEDS: LR 1,000 ML IV SCH ×3 (02:25→20:08)
[2021-07-23 02:59] VITALS: BP 125/59
[2021-07-23] MEDS: MORPHINE 2 MG/ML 1ML VIAL IV PRN (03:03)
[2021-07-23] MEDS: metroNIDAZOLE 500 MG in IV 1 EA IV SCH ×3 (03:03→21:05)
[2021-07-23 05:21] LABS: BASO % 0.1 % (0.0-1.0); EOS % 0.1 % (0.0-3.0); HEMOGLOBIN 7.9 g/dl (13.5-17.5); LYMPH # 1.9 10^3/uL (1.5-5.0); LYMPH % 10.9 % (24.0-44.0); MEAN CORPUSCULAR HEMOGLOBIN 26.2 pg (27.0-33.0); MEAN CORPUSCULAR HGB CONC 32.9 g/dl (32.0-36.5); MEAN CORPUSCULAR VOLUME 79.5 fl (80.0-96.0); MONO # 1.5 10^3/uL (0.0-0.8); MONO % 8.4 % (2.0-8.0); NEUTROPHILS # 14.1 10^3/uL (1.5-8.5); NEUTROPHILS % 79.7 % (36.0-66.0); PLATELET COUNT, AUTOMATED 138 10^3/uL (150-450); RED BLOOD COUNT 3.02 10^6/uL (4.30-6.10); WHITE BLOOD COUNT 17.7 10^3/uL (4.0-10.0)
[2021-07-23] MEDS: THIAMINE INJection 500 MG in NS 100 ML IV SCH (05:29)
[2021-07-23] MEDS: HEPARIN SOD (PORCINE) 5000UNITS/ML 1ML VIAL/SYRINGE SQ SCH ×3 (05:30→21:06)
[2021-07-23 05:41] LABS: ALBUMIN 2.2 GM/DL (3.2-5.2); ALT/SGPT 20 U/L (12-78); BILIRUBIN,TOTAL 1.9 MG/DL (0.2-1.0); BLOOD UREA NITROGEN 20 MG/DL (7-18); CALCIUM LEVEL 8.1 MG/DL (8.8-10.2); CARBON DIOXIDE LEVEL 21 MEQ/L (21-32); CHLORIDE LEVEL 112 MEQ/L (98-107); CREATININE FOR GFR 1.16 MG/DL (0.70-1.30); GLOMERULAR FILTRATION RATE > 60.0 (>49); GLUCOSE, FASTING 218 MG/DL (70-100); MAGNESIUM LEVEL 1.7 MG/DL (1.8-2.4); PHOSPHORUS LEVEL 1.6 MG/DL (2.5-4.9); POTASSIUM SERUM 3.7 MEQ/L (3.5-5.1); SODIUM LEVEL 141 MEQ/L (136-145); TOTAL PROTEIN 5.5 GM/DL (6.4-8.2)
[2021-07-23] MEDS: INSULIN LISPRO (NovoLOG) PER UNIT SC SCH ×4 (06:08→20:15)
[2021-07-23 07:59] VITALS: BP 101/59
[2021-07-23] MEDS ORDERED: MAGNESIUM OXIDE 400MG TAB (MAG-OX) PO ONE (08:00)
[2021-07-23] MEDS: METOPROLOL TART 12.5 MG PER 1/2 TAB PO SCH ×2 (08:53→20:14)
[2021-07-23] MEDS: PREGABALIN 75 MG CAP(LYRICA) PO SCH ×2 (09:00→21:05)
[2021-07-23] MEDS ORDERED: POTASSIUM PHOSPHATE INJ 20 MMOL in D5W 250 ML IV ONE (09:00)
[2021-07-23] MEDS: LACTULOSE 20 GM/30 ML SYRUP UD PO SCH ×4 (09:01→21:05)
[2021-07-23] MEDS: PANTOPRAZOLE 40MG TAB (PROTONIX) PO SCH (09:01)
[2021-07-23] MEDS: rifAXIMin 550 MG TAB (XIFAXAN) PO SCH ×2 (09:01→21:05)
[2021-07-23] MEDS: ASPIRIN 81MG ENTERIC TABLET PO SCH (09:01)
[2021-07-23 12:00] VITALS: BP 110/56
[2021-07-23 16:00] VITALS: BP 142/68
[2021-07-23] MEDS ORDERED: LevoFLOXacin IV 750 MG in IV 1 EA IV SCH (18:00)
[2021-07-23] MEDS: oxyCODONE 5MG TAB PO PRN (18:57)
[2021-07-23 19:43] VITALS: BP 105/57
[2021-07-23] MEDS: LEVEMIR (INSULIN DETEMIR) 1 UNITS/0.01ML SC SCH (21:07)
[2021-07-24] VITALS: BP 144/72
[2021-07-24] MEDS: ONDANSETRON 4MG/2ML VIAL IV PRN (00:37)
[2021-07-24] MEDS ORDERED: oxyCODONE 5MG TAB PO ONE (03:20)
[2021-07-24] MEDS: metroNIDAZOLE 500 MG in IV 1 EA IV SCH (03:34)
[2021-07-24 03:35] VITALS: BP 122/61
[2021-07-24] MEDS: LR 1,000 ML IV SCH (05:03)
[2021-07-24] MEDS: HEPARIN SOD (PORCINE) 5000UNITS/ML 1ML VIAL/SYRINGE SQ SCH ×3 (05:03→21:32)
[2021-07-24 05:04] LABS: BASO % 0.5 % (0.0-1.0); EOS # 0.3 10^3/uL (0.0-0.5); EOS % 3.3 % (0.0-3.0); HEMATOCRIT 22.6 % (42.0-52.0); HEMOGLOBIN 7.4 g/dl (13.5-17.5); LYMPH # 2.4 10^3/uL (1.5-5.0); LYMPH % 29.6 % (24.0-44.0); MEAN CORPUSCULAR HEMOGLOBIN 26.1 pg (27.0-33.0); MEAN CORPUSCULAR HGB CONC 32.7 g/dl (32.0-36.5); MEAN CORPUSCULAR VOLUME 79.6 fl (80.0-96.0); MONO # 0.9 10^3/uL (0.0-0.8); MONO % 10.7 % (2.0-8.0); NEUTROPHILS # 4.5 10^3/uL (1.5-8.5); NEUTROPHILS % 55.5 % (36.0-66.0); PLATELET COUNT, AUTOMATED 141 10^3/uL (150-450); RED BLOOD COUNT 2.84 10^6/uL (4.30-6.10); WHITE BLOOD COUNT 8.1 10^3/uL (4.0-10.0)
[2021-07-24 05:26] LABS: ALBUMIN 1.8 GM/DL (3.2-5.2); ALT/SGPT 16 U/L (12-78); BILIRUBIN,TOTAL 1.1 MG/DL (0.2-1.0); BLOOD UREA NITROGEN 20 MG/DL (7-18); CALCIUM LEVEL 8.1 MG/DL (8.8-10.2); CARBON DIOXIDE LEVEL 21 MEQ/L (21-32); CHLORIDE LEVEL 115 MEQ/L (98-107); CREATININE FOR GFR 1.01 MG/DL (0.70-1.30); GLOMERULAR FILTRATION RATE > 60.0 (>49); GLUCOSE, FASTING 136 MG/DL (70-100); MAGNESIUM LEVEL 1.7 MG/DL (1.8-2.4); PHOSPHORUS LEVEL 1.9 MG/DL (2.5-4.9); POTASSIUM SERUM 3.7 MEQ/L (3.5-5.1); SODIUM LEVEL 143 MEQ/L (136-145); TOTAL PROTEIN 5.2 GM/DL (6.4-8.2)
[2021-07-24 08:00] VITALS: BP 127/78
[2021-07-24] MEDS: MAG SULF 1GM/100ML (MAG RUN) 1 GM in IV 1 EA IV SCH ×2 (08:29→09:52)
[2021-07-24] MEDS: rifAXIMin 550 MG TAB (XIFAXAN) PO SCH ×2 (08:30→21:31)
[2021-07-24] MEDS: LACTULOSE 20 GM/30 ML SYRUP UD PO SCH ×4 (08:30→21:31)
[2021-07-24] MEDS: INSULIN LISPRO (NovoLOG) PER UNIT SC SCH ×4 (08:30→21:00)
[2021-07-24] MEDS: PREGABALIN 75 MG CAP(LYRICA) PO SCH ×2 (08:32→21:31)
[2021-07-24] MEDS: PANTOPRAZOLE 40MG TAB (PROTONIX) PO SCH (08:32)
[2021-07-24] MEDS: ASPIRIN 81MG ENTERIC TABLET PO SCH (08:32)
[2021-07-24] MEDS: METOPROLOL TART 12.5 MG PER 1/2 TAB PO SCH ×2 (08:32→21:00)
[2021-07-24] MEDS: oxyCODONE 5MG TAB PO PRN ×2 (08:44→22:35)
[2021-07-24] MEDS ORDERED: POTASSIUM PHOSPHATE INJ 20 MMOL in D5W 250 ML IV ONE (10:00)
[2021-07-24] MEDS: CEFEPIME HCL 2 GM in D5W MINI-BAG PLUS 50 ML IV SCH ×2 (14:29→21:34)
[2021-07-24] MEDS: metroNIDAZOLE (FLAGYL) 500MG TABLET PO SCH ×2 (14:29→21:31)
[2021-07-24 16:00] VITALS: BP 106/59
[2021-07-24 17:15] VITALS: BP 113/63
[2021-07-24 20:00] VITALS: BP 114/63
[2021-07-24] MEDS: LEVEMIR (INSULIN DETEMIR) 1 UNITS/0.01ML SC SCH (21:32)
[2021-07-25 02:00] VITALS: BP 110/64
[2021-07-25] MEDS: metroNIDAZOLE (FLAGYL) 500MG TABLET PO SCH ×3 (05:35→21:02)
[2021-07-25] MEDS: HEPARIN SOD (PORCINE) 5000UNITS/ML 1ML VIAL/SYRINGE SQ SCH ×3 (05:35→21:03)
[2021-07-25] MEDS: CEFEPIME HCL 2 GM in D5W MINI-BAG PLUS 50 ML IV SCH ×3 (05:35→21:04)
[2021-07-25 06:00] VITALS: BP 102/57
[2021-07-25 06:50] LABS: BASO # 0.1 10^3/uL (0.0-0.2); BASO % 1.2 % (0.0-1.0); EOS # 0.6 10^3/uL (0.0-0.5); EOS % 8.1 % (0.0-3.0); HEMATOCRIT 27.2 % (42.0-52.0); HEMOGLOBIN 8.7 g/dl (13.5-17.5); LYMPH # 2.7 10^3/uL (1.5-5.0); LYMPH % 40.2 % (24.0-44.0); MEAN CORPUSCULAR VOLUME 81.2 fl (80.0-96.0); MONO # 0.8 10^3/uL (0.0-0.8); MONO % 11.6 % (2.0-8.0); NEUTROPHILS # 2.6 10^3/uL (1.5-8.5); NEUTROPHILS % 38.3 % (36.0-66.0); PLATELET COUNT, AUTOMATED 174 10^3/uL (150-450); RED BLOOD COUNT 3.35 10^6/uL (4.30-6.10); WHITE BLOOD COUNT 6.8 10^3/uL (4.0-10.0)
[2021-07-25 07:13] LABS: BLOOD UREA NITROGEN 13 MG/DL (7-18); CARBON DIOXIDE LEVEL 20 MEQ/L (21-32); CHLORIDE LEVEL 113 MEQ/L (98-107); CREATININE FOR GFR 1.14 MG/DL (0.70-1.30); GLOMERULAR FILTRATION RATE > 60.0 (>49); GLUCOSE, FASTING 69 MG/DL (70-100); MAGNESIUM LEVEL 1.8 MG/DL (1.8-2.4); PHOSPHORUS LEVEL 3.5 MG/DL (2.5-4.9); POTASSIUM SERUM 3.6 MEQ/L (3.5-5.1); SODIUM LEVEL 143 MEQ/L (136-145)
[2021-07-25] MEDS: INSULIN LISPRO (NovoLOG) PER UNIT SC SCH ×4 (07:30→21:00)
[2021-07-25] MEDS: METOPROLOL TART 12.5 MG PER 1/2 TAB PO SCH ×2 (09:00→21:08)
[2021-07-25] MEDS: LACTULOSE 20 GM/30 ML SYRUP UD PO SCH ×4 (09:22→21:00)
[2021-07-25] MEDS: rifAXIMin 550 MG TAB (XIFAXAN) PO SCH ×2 (09:23→21:02)
[2021-07-25] MEDS: ASPIRIN 81MG ENTERIC TABLET PO SCH (09:23)
[2021-07-25] MEDS: PANTOPRAZOLE 40MG TAB (PROTONIX) PO SCH (09:23)
[2021-07-25] MEDS: PREGABALIN 75 MG CAP(LYRICA) PO SCH ×2 (09:23→21:02)
[2021-07-25] MEDS: DOXYCYCLINE HYCLATE 100MG TABLET PO SCH ×2 (09:23→21:03)
[2021-07-25] MEDS: oxyCODONE 5MG TAB PO PRN ×2 (09:28→21:17)
[2021-07-25 10:00] VITALS: BP 106/62
[2021-07-25] MEDS ORDERED: POTASSIUM CHLORIDE 10MEQ SR TABLET PO ONE (11:05)
[2021-07-25] MEDS ORDERED: MAGNESIUM OXIDE 400MG TAB (MAG-OX) PO ONE (11:05)
[2021-07-25 14:00] VITALS: BP 128/60
[2021-07-25] MEDS: LEVEMIR (INSULIN DETEMIR) 1 UNITS/0.01ML SC SCH (21:04)
[2021-07-25 22:00] VITALS: BP 126/60
[2021-07-26] VITALS (7 sets, daily range): BP systolic 111–121; BP diastolic 56–65
[2021-07-26] MEDS: HEPARIN SOD (PORCINE) 5000UNITS/ML 1ML VIAL/SYRINGE SQ SCH ×3 (05:21→22:35)
[2021-07-26] MEDS: CEFEPIME HCL 2 GM in D5W MINI-BAG PLUS 50 ML IV SCH ×3 (05:21→22:35)
[2021-07-26] MEDS: metroNIDAZOLE (FLAGYL) 500MG TABLET PO SCH ×3 (05:21→22:35)
[2021-07-26 06:40] LABS: BASO # 0.1 10^3/uL (0.0-0.2); EOS # 0.4 10^3/uL (0.0-0.5); EOS % 5.3 % (0.0-3.0); HEMATOCRIT 23.6 % (42.0-52.0); HEMOGLOBIN 7.8 g/dl (13.5-17.5); LYMPH # 2.5 10^3/uL (1.5-5.0); LYMPH % 35.7 % (24.0-44.0); MEAN CORPUSCULAR HGB CONC 33.1 g/dl (32.0-36.5); MEAN CORPUSCULAR VOLUME 81.7 fl (80.0-96.0); MONO # 0.8 10^3/uL (0.0-0.8); MONO % 12.1 % (2.0-8.0); NEUTROPHILS # 3.1 10^3/uL (1.5-8.5); PLATELET COUNT, AUTOMATED 153 10^3/uL (150-450); RED BLOOD COUNT 2.89 10^6/uL (4.30-6.10); WHITE BLOOD COUNT 6.9 10^3/uL (4.0-10.0)
[2021-07-26 07:12] LABS: ALBUMIN 1.8 GM/DL (3.2-5.2); ALT/SGPT 14 U/L (12-78); BILIRUBIN,TOTAL 1.1 MG/DL (0.2-1.0); BLOOD UREA NITROGEN 10 MG/DL (7-18); CALCIUM LEVEL 7.6 MG/DL (8.8-10.2); CARBON DIOXIDE LEVEL 21 MEQ/L (21-32); CHLORIDE LEVEL 112 MEQ/L (98-107); CREATININE FOR GFR 1.16 MG/DL (0.70-1.30); GLOMERULAR FILTRATION RATE > 60.0 (>49); GLUCOSE, FASTING 261 MG/DL (70-100); MAGNESIUM LEVEL 1.6 MG/DL (1.8-2.4); PHOSPHORUS LEVEL 1.9 MG/DL (2.5-4.9); POTASSIUM SERUM 4.4 MEQ/L (3.5-5.1); SODIUM LEVEL 137 MEQ/L (136-145); TOTAL PROTEIN 4.9 GM/DL (6.4-8.2)
[2021-07-26] MEDS: LACTULOSE 20 GM/30 ML SYRUP UD PO SCH ×4 (08:27→21:05)
[2021-07-26] MEDS: PREGABALIN 75 MG CAP(LYRICA) PO SCH ×2 (08:28→21:06)
[2021-07-26] MEDS: INSULIN LISPRO (NovoLOG) PER UNIT SC SCH ×4 (08:28→20:09)
[2021-07-26] MEDS: DOXYCYCLINE HYCLATE 100MG TABLET PO SCH ×2 (08:28→21:06)
[2021-07-26] MEDS: rifAXIMin 550 MG TAB (XIFAXAN) PO SCH ×2 (08:28→21:06)
[2021-07-26] MEDS: PANTOPRAZOLE 40MG TAB (PROTONIX) PO SCH (08:28)
[2021-07-26] MEDS: ASPIRIN 81MG ENTERIC TABLET PO SCH (08:28)
[2021-07-26] MEDS: METOPROLOL TART 12.5 MG PER 1/2 TAB PO SCH ×4 (08:29→21:06)
[2021-07-26] MEDS ORDERED: MAG SULF 1GM/100ML (MAG RUN) 1 GM in IV 1 EA IV ONE (09:00)
[2021-07-26] MEDS: oxyCODONE 5MG TAB PO PRN ×2 (09:59→22:43)
[2021-07-26] MEDS: LEVEMIR (INSULIN DETEMIR) 1 UNITS/0.01ML SC SCH (21:06)
[2021-07-27 00:10] VITALS: BP 144/68
[2021-07-27 04:19] VITALS: BP 119/66
[2021-07-27 05:39] LABS: BASO # 0.1 10^3/uL (0.0-0.2); BASO % 1.1 % (0.0-1.0); EOS # 0.5 10^3/uL (0.0-0.5); EOS % 6.4 % (0.0-3.0); HEMATOCRIT 24.3 % (42.0-52.0); HEMOGLOBIN 7.9 g/dl (13.5-17.5); LYMPH # 2.1 10^3/uL (1.5-5.0); LYMPH % 29.4 % (24.0-44.0); MEAN CORPUSCULAR HEMOGLOBIN 26.2 pg (27.0-33.0); MEAN CORPUSCULAR HGB CONC 32.5 g/dl (32.0-36.5); MEAN CORPUSCULAR VOLUME 80.7 fl (80.0-96.0); MONO # 0.9 10^3/uL (0.0-0.8); NEUTROPHILS # 3.5 10^3/uL (1.5-8.5); NEUTROPHILS % 49.4 % (36.0-66.0); PLATELET COUNT, AUTOMATED 153 10^3/uL (150-450); RED BLOOD COUNT 3.01 10^6/uL (4.30-6.10); WHITE BLOOD COUNT 7.1 10^3/uL (4.0-10.0)
[2021-07-27] MEDS: CEFEPIME HCL 2 GM in D5W MINI-BAG PLUS 50 ML IV SCH ×2 (06:08→13:09)
[2021-07-27] MEDS: metroNIDAZOLE (FLAGYL) 500MG TABLET PO SCH ×2 (06:08→13:08)
[2021-07-27] MEDS: HEPARIN SOD (PORCINE) 5000UNITS/ML 1ML VIAL/SYRINGE SQ SCH ×2 (06:08→13:07)
[2021-07-27 06:14] LABS: ALBUMIN 1.8 GM/DL (3.2-5.2); ALT/SGPT 17 U/L (12-78); BLOOD UREA NITROGEN 7 MG/DL (7-18); CALCIUM LEVEL 8.3 MG/DL (8.8-10.2); CARBON DIOXIDE LEVEL 22 MEQ/L (21-32); CHLORIDE LEVEL 110 MEQ/L (98-107); CREATININE FOR GFR 0.98 MG/DL (0.70-1.30); GLOMERULAR FILTRATION RATE > 60.0 (>49); GLUCOSE, FASTING 245 MG/DL (70-100); MAGNESIUM LEVEL 1.7 MG/DL (1.8-2.4); PHOSPHORUS LEVEL 1.6 MG/DL (2.5-4.9); POTASSIUM SERUM 4.3 MEQ/L (3.5-5.1); SODIUM LEVEL 141 MEQ/L (136-145); TOTAL PROTEIN 5.3 GM/DL (6.4-8.2)
[2021-07-27] MEDS: INSULIN LISPRO (NovoLOG) PER UNIT SC SCH ×2 (07:30→12:15)
[2021-07-27 08:09] VITALS: BP 115/57
[2021-07-27 08:57] VITALS: BP 115/57
[2021-07-27] MEDS: METOPROLOL TART 12.5 MG PER 1/2 TAB PO SCH (08:57)
[2021-07-27] MEDS: rifAXIMin 550 MG TAB (XIFAXAN) PO SCH (09:00)
[2021-07-27] MEDS: GASTROGRAFIN SOLUTION 30ML PO SCH ×2 (09:11→09:57)
[2021-07-27] MEDS: LACTULOSE 20 GM/30 ML SYRUP UD PO SCH ×2 (09:11→12:12)
[2021-07-27] MEDS: ASPIRIN 81MG ENTERIC TABLET PO SCH (09:11)
[2021-07-27] MEDS: DOXYCYCLINE HYCLATE 100MG TABLET PO SCH (09:12)
[2021-07-27] MEDS: PREGABALIN 75 MG CAP(LYRICA) PO SCH (09:12)
[2021-07-27] MEDS: PANTOPRAZOLE 40MG TAB (PROTONIX) PO SCH (09:13)
[2021-07-27] MEDS ORDERED: ISOVUE-370 76% 100ML VIAL As Ordered ONE (09:30)
[2021-07-27 11:45] VITALS: BP 149/70
[2021-07-27] MEDS ORDERED: METR-265 PO (11:50)
[2021-07-27] MEDS ORDERED: DOXY100T PO (11:50)
[2021-07-27] MEDS ORDERED: CEFD300C41 PO (11:50)
[2021-07-28 16:09] LABS: BODY FLUID CULTURE Not indicated. (.); LEGIONELLA ANTIGEN URINE Negative (Negative); ORGANISM ID Not indicated. (.); SPECIMEN SOURCE Urine (.); URINE STREP PNEUMONIAE ANTIGEN Negative (Negative)
== END 2021-07-27 15:07 | disposition home health service (06) | DRG 391 ==
LOC: EDBD 12:09 → M ED 12:09 → M ED INP 17:59 → ENRESERV 19:28 → M PCU 21:01 → M MS5PR 07-24 17:18 → M PCU 07-26 11:25
PROVIDERS: ADMIT Internal Medicine; ATTEND Internal Medicine
DX: K52.9 Noninfective gastroenteritis and colitis, unspecified (principal); G93.41 Metabolic encephalopathy; J12.2 Parainfluenza virus pneumonia; E87.2 Acidosis; J44.0 Chronic obstructive pulmonary disease with (acute) lower respiratory infection; I10 Essential (primary) hypertension; I25.10 Atherosclerotic heart disease of native coronary artery without angina pectoris; E11.9 Type 2 diabetes mellitus without complications; K74.60 Unspecified cirrhosis of liver; Z79.82 Long term (current) use of aspirin; Z79.899 Other long term (current) drug therapy; Z88.8 Allergy status to other drugs, medicaments and biological substances; Z91.012 Allergy to eggs; Z79.4 Long term (current) use of insulin; Z86.73 Personal history of transient ischemic attack (TIA), and cerebral infarction without residual deficits; Z95.2 Presence of prosthetic heart valve; B18.2 Chronic viral hepatitis C; Z87.891 Personal history of nicotine dependence

== ENCOUNTER 2022-02-04 19:32 | Observation (INO) | payer OTHER ==
[~2022-02-04] VITALS: Ht 177.8 cm; Wt 69.4 kg
[~2022-02-04 19:32] MED LIST changes: +CEFD300C41 PO; +DOXY100T PO; +LEVE1INJ5 SC; +METO37.5 PO; +METR-265 PO; +PANT40TA29 PO
[2022-02-04] MEDS ORDERED: DEXTROSE 50% 50 ML SYRINGE IV STA (20:04)
[2022-02-04 20:15] LABS: BASO # 0.2 10^3/uL (0.0-0.2); BASO % 2.1 % (0.0-1.0); EOS # 0.3 10^3/uL (0.0-0.5); EOS % 3.7 % (0.0-3.0); HEMOGLOBIN 12.7 g/dl (13.5-17.5); LYMPH # 2.8 10^3/uL (1.5-5.0); LYMPH % 38.8 % (24.0-44.0); MEAN CORPUSCULAR HEMOGLOBIN 32.5 pg (27.0-33.0); MEAN CORPUSCULAR HGB CONC 33.4 g/dl (32.0-36.5); MEAN CORPUSCULAR VOLUME 97.2 fl (80.0-96.0); MONO # 0.9 10^3/uL (0.0-0.8); MONO % 12.6 % (2.0-8.0); NEUTROPHILS # 3.1 10^3/uL (1.5-8.5); NEUTROPHILS % 42.5 % (36.0-66.0); PLATELET COUNT, AUTOMATED 157 10^3/uL (150-450); RED BLOOD COUNT 3.91 10^6/uL (4.30-6.10); WHITE BLOOD COUNT 7.3 10^3/uL (4.0-10.0)
[2022-02-04 20:26] LABS: INR 1.32; PROTHROMBIN TIME 16.7 SECONDS (12.5-14.5)
[2022-02-04 20:36] LABS: ETHYL ALCOHOL (ETHANOL) 0.003 % (0.000-0.010)
[2022-02-04 20:37] LABS: BILIRUBIN,DIRECT 0.6 MG/DL (<0.4)
[2022-02-04 20:39] LABS: ALBUMIN 3.2 G/DL (3.2-5.2); ALKALINE PHOSPHATASE 121 U/L (46-116); ALT/SGPT 18 U/L (7.0-40); AST/SGOT 28 U/L (<34); BILIRUBIN,TOTAL 1.3 MG/DL (0.3-1.2); BLOOD UREA NITROGEN 12 MG/DL (9-23); CALCIUM LEVEL 9.2 MG/DL (8.3-10.6); CARBON DIOXIDE LEVEL 26 MMOL/L (20-31); CHLORIDE LEVEL 110 MMOL/L (98-107); GLOMERULAR FILTRATION RATE > 60.0 (>49); GLUCOSE, FASTING 58 MG/DL (74-106); POTASSIUM SERUM 3.8 MMOL/L (3.5-5.1); SODIUM LEVEL 145 MMOL/L (136-145); TOTAL PROTEIN 6.9 G/DL (5.7-8.2)
[2022-02-04] MEDS ORDERED: ISOVUE-370 76% 100ML VIAL As Ordered ONE (20:41)
[2022-02-04] MEDS ORDERED: LACTULOSE 20 GM/30 ML SYRUP UD PO ONE (20:45)
[2022-02-04 22:59] LABS: RSV AMPLIFICATION NEGATIVE (NEGATIVE)
[2022-02-04] MEDS ORDERED: VITMTA PO (23:57)
[2022-02-04] MEDS ORDERED: SPIR50TA4 PO (23:57)
[2022-02-04] MEDS ORDERED: FURO20TA2 PO (23:57)
[2022-02-04] MEDS ORDERED: FERR324T2 PO (23:57)
[2022-02-04] MEDS ORDERED: MAGN400T33 PO (23:57)
[2022-02-04] MEDS ORDERED: AMLO1TAB24 PO (23:57)
[2022-02-04] MEDS ORDERED: FOLI1TAB11 PO (23:57)
[2022-02-04] MEDS ORDERED: VITA500C24 PO (23:57)
[2022-02-05] MEDS ORDERED: HOME MED LIST COMPLETE! XX SCH
[2022-02-05] MEDS ORDERED: GLUCAGON INJ 1MG VIAL SC PRN (01:20)
[2022-02-05] MEDS ORDERED: DEXTROSE 50% 50 ML SYRINGE IV PRN (01:20)
[2022-02-05] MEDS ORDERED: GLUCOSE 4GM CHEW TABLET PO PRN (01:20)
[2022-02-05] MEDS ORDERED: amLODIPine 5 MG TAB PO ONE (02:00)
[2022-02-05 02:07] LABS: HEMOGLOBIN A1c 6.2 % (4.0-6.0)
[2022-02-05] MEDS: METOPROLOL TART 12.5 MG PER 1/2 TAB PO SCH ×2 (02:12→08:10)
[2022-02-05 02:42] VITALS: BP_SYST 139; BP_SYST 239; BP_DIAS 77
[2022-02-05] MEDS: LIDOCAINE 5% (LIDODERM) PATCH TD SCH ×2 (03:31→08:10)
[2022-02-05] MEDS ORDERED: oxyCODONE 5MG TAB PO PRN (04:00)
[2022-02-05] MEDS ORDERED: oxyCODONE 5MG TAB PO ONE (04:00)
[2022-02-05 06:22] VITALS: BP 136/74
[2022-02-05] MEDS ORDERED: INSULIN LISPRO (NovoLOG) PER UNIT SC SCH ×2 (07:30→21:00)
[2022-02-05 08:10] VITALS: BP 136/74
[2022-02-05] MEDS ORDERED: MULTIVITAMINS/MINERALS THERAP 1 TAB PO SCH (09:00)
[2022-02-05] MEDS ORDERED: LEVEMIR (INSULIN DETEMIR) 1 UNITS/0.01ML SC SCH (09:00)
[2022-02-05] MEDS ORDERED: ASPIRIN 81MG ENTERIC TABLET PO SCH (09:00)
[2022-02-05] MEDS ORDERED: rifAXIMin 550 MG TAB (XIFAXAN) PO SCH (09:00)
[2022-02-05] MEDS ORDERED: FUROSEMIDE 20 MG TAB PO SCH (09:00)
[2022-02-05] MEDS ORDERED: MAGNESIUM OXIDE 400MG TAB (MAG-OX) PO SCH (09:00)
[2022-02-05] MEDS ORDERED: PANTOPRAZOLE 40MG TAB (PROTONIX) PO SCH (09:00)
[2022-02-05] MEDS ORDERED: SPIRONOLACTONE 50 MG TAB PO SCH (09:00)
[2022-02-05] MEDS ORDERED: LACTULOSE 20 GM/30 ML SYRUP UD PO SCH (09:00)
[2022-02-05] MEDS ORDERED: THIAMINE 100 MG TAB PO SCH (09:00)
[2022-02-05] MEDS ORDERED: PREGABALIN 75 MG CAP(LYRICA) PO SCH (09:00)
[2022-02-05] MEDS ORDERED: FOLIC ACID 1MG TAB PO SCH (09:00)
[2022-02-06] MEDS ORDERED: amLODIPine 5 MG TAB PO SCH (09:00)
== END 2022-02-05 11:05 | disposition home or self-care (01) ==
LOC: M ED 19:32 → M ED INP 19:33 → ENRESERV 02-05 02:01 → M MS5PR 02-05 03:08
PROVIDERS: ADMIT Internal Medicine; ATTEND Internal Medicine
DX: E11.649 Type 2 diabetes mellitus with hypoglycemia without coma (principal); R41.82 Altered mental status, unspecified; K76.82 Hepatic encephalopathy; K70.30 Alcoholic cirrhosis of liver without ascites; K21.9 Gastro-esophageal reflux disease without esophagitis; F11.20 Opioid dependence, uncomplicated; I10 Essential (primary) hypertension; G90.09 Other idiopathic peripheral autonomic neuropathy; Z79.82 Long term (current) use of aspirin; Z79.4 Long term (current) use of insulin; Z79.899 Other long term (current) drug therapy; Z88.8 Allergy status to other drugs, medicaments and biological substances; Z91.012 Allergy to eggs
CPT/HCPCS: 36415; 70450; 70496; 70498; 71045; 80048; 80076; 82077; 82140; 83036; 84484; 85025; 85610; 87631; 93005; 93041; 94760; 96374; 99285; G0378; J1815; Q9967

== ENCOUNTER 2022-08-27 17:02 | Inpatient (IN) | payer MEDICARE, OTHER ==
[~2022-08-27] VITALS: Ht 177.8 cm; Wt 63.1 kg
[~2022-08-27 17:02] MED LIST changes: +FERR324T2 PO; +FOLI1TAB11 PO; +FURO20TA2 PO; +INSU100I6 SC; -LEVE1INJ5 SC; +MAGN400T33 PO; +SPIR50TA4 PO; +VITA500C24 PO; +VITMTA PO
[2022-08-27 17:56] LABS: BASO # 0.1 10^3/uL (0.0-0.2); BASO % 0.9 % (0.0-1.0); EOS # 0.2 10^3/uL (0.0-0.5); EOS % 1.4 % (0.0-3.0); LYMPH # 1.7 10^3/uL (1.5-5.0); LYMPH % 13.3 % (24.0-44.0); MEAN CORPUSCULAR HEMOGLOBIN 34.1 pg (27.0-33.0); MEAN CORPUSCULAR HGB CONC 33.3 g/dl (32.0-36.5); MEAN CORPUSCULAR VOLUME 102.4 fl (80.0-96.0); MONO % 7.8 % (2.0-8.0); NEUTROPHILS # 9.5 10^3/uL (1.5-8.5); NEUTROPHILS % 75.4 % (36.0-66.0); PLATELET COUNT, AUTOMATED 134 10^3/uL (150-450); RED BLOOD COUNT 3.81 10^6/uL (4.30-6.10); WHITE BLOOD COUNT 12.6 10^3/uL (4.0-10.0)
[2022-08-27 18:19] LABS: ALBUMIN 3.4 G/DL (3.2-5.2); ALKALINE PHOSPHATASE 95 U/L (46-116); ALT/SGPT 18 U/L (7.0-40); AST/SGOT 30 U/L (<34); BILIRUBIN,TOTAL 2.4 MG/DL (0.3-1.2); BLOOD UREA NITROGEN 10 MG/DL (9-23); CALCIUM LEVEL 9.2 MG/DL (8.3-10.6); CARBON DIOXIDE LEVEL 17 MMOL/L (20-31); CHLORIDE LEVEL 104 MMOL/L (98-107); CREATININE FOR GFR 0.98 MG/DL (0.70-1.30); GLOMERULAR FILTRATION RATE > 60.0 (>49); GLUCOSE, FASTING 93 MG/DL (74-106); POTASSIUM SERUM 4.1 MMOL/L (3.5-5.1); SODIUM LEVEL 137 MMOL/L (136-145); TOTAL PROTEIN 7.1 G/DL (5.7-8.2)
[2022-08-27] MEDS ORDERED: LACTULOSE 20GM/30ML SYRUP UDC PO ONE (18:40)
[2022-08-27 19:34] LABS: HEMOGLOBIN A1c 5.4 % (4.0-6.0)
[2022-08-27 22:27] LABS: RSV AMPLIFICATION NEGATIVE (NEGATIVE)
[2022-08-27] MEDS ORDERED: D5W/0.9% SODIUM CHLORIDE 1,000 ML IV SCH (22:40)
[2022-08-27] MEDS ORDERED: oxyCODONE 5MG TAB PO ONE (22:40)
[2022-08-27] MEDS ORDERED: ALBUTEROL SULFATE 2.5MG/0.5ML INH NEB SOLN NEB PRN (22:40)
[2022-08-27] MEDS ORDERED: OXYC-517 PO (22:49)
[2022-08-27] MEDS ORDERED: HOME MED LIST COMPLETE! XX SCH (22:50)
[2022-08-27 23:22] VITALS: BP 146/83; TEMP 97.7; O2SAT 98
[2022-08-28] MEDS: IPRATROPIUM 0.5MG/ALBUTEROL 2.5MG INH SOL UD 3ML (DUONEB) NEB SCH ×4 (01:33→21:08)
[2022-08-28 06:00] VITALS: BP 112/71; TEMP 98.2; O2SAT 99
[2022-08-28 06:14] LABS: BLOOD UREA NITROGEN 10 MG/DL (9-23); CALCIUM LEVEL 8.5 MG/DL (8.3-10.6); CARBON DIOXIDE LEVEL 25 MMOL/L (20-31); CHLORIDE LEVEL 104 MMOL/L (98-107); CREATININE FOR GFR 0.81 MG/DL (0.70-1.30); GLOMERULAR FILTRATION RATE > 60.0 (>49); GLUCOSE, FASTING 201 MG/DL (74-106); POTASSIUM SERUM 4.2 MMOL/L (3.5-5.1); SODIUM LEVEL 135 MMOL/L (136-145)
[2022-08-28] MEDS: rifAXIMin 550 MG TAB (XIFAXAN) PO SCH ×2 (09:19→20:55)
[2022-08-28] MEDS: LACTULOSE 20GM/30ML SYRUP UDC PO SCH ×3 (09:19→20:55)
[2022-08-28 09:25] LABS: HEMATOCRIT 31.9 % (42.0-52.0); HEMOGLOBIN 11.1 g/dl (13.5-17.5); MEAN CORPUSCULAR HEMOGLOBIN 33.5 pg (27.0-33.0); MEAN CORPUSCULAR HGB CONC 34.8 g/dl (32.0-36.5); MEAN CORPUSCULAR VOLUME 96.4 fl (80.0-96.0); PLATELET COUNT, AUTOMATED 103 10^3/uL (150-450); RED BLOOD COUNT 3.31 10^6/uL (4.30-6.10); WHITE BLOOD COUNT 10.2 10^3/uL (4.0-10.0)
[2022-08-28] MEDS ORDERED: INSULIN LISPRO (NovoLOG) PER UNIT SC SCH (12:00)
[2022-08-28] MEDS: MULTIVITAMINS/MINERALS THERAP 1 TAB PO SCH (13:25)
[2022-08-28] MEDS: ASPIRIN 81MG ENTERIC TABLET PO SCH (13:25)
[2022-08-28] MEDS: FOLIC ACID 1MG TAB PO SCH (13:25)
[2022-08-28] MEDS: METOPROLOL TART 12.5 MG PER 1/2 TAB PO SCH ×2 (13:25→20:57)
[2022-08-28] MEDS: THIAMINE 100 MG TAB PO SCH (13:26)
[2022-08-28] MEDS: PANTOPRAZOLE 40MG TAB (PROTONIX) PO SCH ×2 (13:26→20:55)
[2022-08-28] MEDS: ASCORBIC ACID 500 MG TAB PO SCH (13:26)
[2022-08-28] MEDS: oxyCODONE 5MG TAB PO SCH ×2 (13:26→20:55)
[2022-08-28 14:00] VITALS: BP 122/77; TEMP 98.2; O2SAT 97
[2022-08-28] MEDS ORDERED: GLUCOSE 4GM CHEW TABLET PO PRN ×2 (16:05)
[2022-08-28] MEDS ORDERED: DEXTROSE 50% 50ML SYRINGE IV PRN ×2 (16:05)
[2022-08-28] MEDS ORDERED: DEXTROSE 50% 50ML SYRINGE As Ordered ONE (16:05)
[2022-08-28] MEDS ORDERED: GLUCAGON INJ 1MG VIAL SC PRN ×2 (16:05)
[2022-08-28] MEDS ORDERED: DEXTROSE 50% 50ML SYRINGE IV STA (16:09)
[2022-08-28] MEDS: INSULIN LISPRO (NovoLOG) PER UNIT SC SCH ×2 (17:30→21:00)
[2022-08-28 22:00] VITALS: BP_SYST 133; BP_SYST 146; BP_DIAS 67; BP_DIAS 75; TEMP 98.1; O2SAT 95; O2SAT 98
[2022-08-29] MEDS: IPRATROPIUM 0.5MG/ALBUTEROL 2.5MG INH SOL UD 3ML (DUONEB) NEB SCH ×4 (01:47→19:53)
[2022-08-29] MEDS ORDERED: oxyCODONE 5MG TAB PO ONE (03:00)
[2022-08-29] MEDS ORDERED: LIDOCAINE 5% (LIDODERM) PATCH TD ONE (03:00)
[2022-08-29 06:00] VITALS: BP 134/81; TEMP 98.2; O2SAT 96
[2022-08-29 06:10] LABS: BASO # 0.2 10^3/uL (0.0-0.2); BASO % 1.7 % (0.0-1.0); EOS # 0.5 10^3/uL (0.0-0.5); EOS % 5.4 % (0.0-3.0); HEMATOCRIT 31.5 % (42.0-52.0); HEMOGLOBIN 10.9 g/dl (13.5-17.5); LYMPH % 34.2 % (24.0-44.0); MEAN CORPUSCULAR HEMOGLOBIN 33.3 pg (27.0-33.0); MEAN CORPUSCULAR HGB CONC 34.6 g/dl (32.0-36.5); MEAN CORPUSCULAR VOLUME 96.3 fl (80.0-96.0); MONO # 0.9 10^3/uL (0.0-0.8); MONO % 10.4 % (2.0-8.0); NEUTROPHILS # 4.3 10^3/uL (1.5-8.5); PLATELET COUNT, AUTOMATED 109 10^3/uL (150-450); RED BLOOD COUNT 3.27 10^6/uL (4.30-6.10); WHITE BLOOD COUNT 8.9 10^3/uL (4.0-10.0)
[2022-08-29 06:24] LABS: ALBUMIN 2.8 G/DL (3.2-5.2); ALKALINE PHOSPHATASE 76 U/L (46-116); ALT/SGPT 15 U/L (7.0-40); AST/SGOT 24 U/L (<34); BILIRUBIN,TOTAL 1.4 MG/DL (0.3-1.2); BLOOD UREA NITROGEN 9 MG/DL (9-23); CALCIUM LEVEL 8.2 MG/DL (8.3-10.6); CARBON DIOXIDE LEVEL 24 MMOL/L (20-31); CHLORIDE LEVEL 104 MMOL/L (98-107); CREATININE FOR GFR 0.81 MG/DL (0.70-1.30); GLOMERULAR FILTRATION RATE > 60.0 (>49); GLUCOSE, FASTING 149 MG/DL (74-106); MAGNESIUM LEVEL 1.4 MG/DL (1.8-2.4); POTASSIUM SERUM 4.3 MMOL/L (3.5-5.1); SODIUM LEVEL 133 MMOL/L (136-145); TOTAL PROTEIN 5.8 G/DL (5.7-8.2)
[2022-08-29] MEDS: INSULIN LISPRO (NovoLOG) PER UNIT SC SCH ×4 (07:30→20:46)
[2022-08-29] MEDS: LACTULOSE 20GM/30ML SYRUP UDC PO SCH ×3 (09:07→21:11)
[2022-08-29] MEDS: MAG SULF 1GM/100ML (MAG RUN) 1 GM in IV 1 EA IV SCH ×3 (09:07→11:51)
[2022-08-29] MEDS: oxyCODONE 5MG TAB PO SCH ×2 (09:08→21:12)
[2022-08-29] MEDS: ENOXAPARIN 40MG/0.4ML SYRINGE (J1650 PER 10MG) SC SCH (09:08)
[2022-08-29] MEDS: MULTIVITAMINS/MINERALS THERAP 1 TAB PO SCH (09:09)
[2022-08-29] MEDS: rifAXIMin 550 MG TAB (XIFAXAN) PO SCH ×2 (09:09→21:11)
[2022-08-29] MEDS: PANTOPRAZOLE 40MG TAB (PROTONIX) PO SCH ×2 (09:09→21:11)
[2022-08-29] MEDS: FOLIC ACID 1MG TAB PO SCH (09:09)
[2022-08-29] MEDS: ASPIRIN 81MG ENTERIC TABLET PO SCH (09:09)
[2022-08-29] MEDS: ASCORBIC ACID 500 MG TAB PO SCH (09:09)
[2022-08-29] MEDS: METOPROLOL TART 12.5 MG PER 1/2 TAB PO SCH ×2 (09:09→21:12)
[2022-08-29] MEDS: THIAMINE 100 MG TAB PO SCH (09:09)
[2022-08-29 14:00] VITALS: BP 128/73; TEMP 97.5; O2SAT 99
[2022-08-29] MEDS ORDERED: ACETAMINOPHEN TAB 650MG DOSE (2X325MG) PO PRN (16:40)
[2022-08-29] MEDS: ADVAIR HFA 115/21MCG INHALER INH SCH (19:53)
[2022-08-29 20:00] VITALS: BP 113/82; TEMP 97.9; O2SAT 97
[2022-08-30] MEDS: IPRATROPIUM 0.5MG/ALBUTEROL 2.5MG INH SOL UD 3ML (DUONEB) NEB SCH ×2 (02:56→07:12)
[2022-08-30 06:00] VITALS: BP 140/69; TEMP 98.1; O2SAT 97
[2022-08-30] MEDS: ADVAIR HFA 115/21MCG INHALER INH SCH (07:12)
[2022-08-30] MEDS: INSULIN LISPRO (NovoLOG) PER UNIT SC SCH (08:56)
[2022-08-30] MEDS ORDERED: ADVA115A INH (09:51)
[2022-08-30] MEDS ORDERED: IPRA0.00 NEB (09:51)
[2022-08-30] MEDS: ENOXAPARIN 40MG/0.4ML SYRINGE (J1650 PER 10MG) SC SCH (09:52)
[2022-08-30] MEDS: MULTIVITAMINS/MINERALS THERAP 1 TAB PO SCH (09:52)
[2022-08-30] MEDS: LACTULOSE 20GM/30ML SYRUP UDC PO SCH (09:52)
[2022-08-30 09:53] VITALS: BP 134/64
[2022-08-30] MEDS: rifAXIMin 550 MG TAB (XIFAXAN) PO SCH (09:53)
[2022-08-30] MEDS: METOPROLOL TART 12.5 MG PER 1/2 TAB PO SCH (09:53)
[2022-08-30] MEDS: THIAMINE 100 MG TAB PO SCH (09:53)
[2022-08-30] MEDS: ASPIRIN 81MG ENTERIC TABLET PO SCH (09:53)
[2022-08-30] MEDS: PANTOPRAZOLE 40MG TAB (PROTONIX) PO SCH (09:54)
[2022-08-30] MEDS: oxyCODONE 5MG TAB PO SCH (09:54)
[2022-08-30] MEDS: FOLIC ACID 1MG TAB PO SCH (09:54)
[2022-08-30] MEDS: ASCORBIC ACID 500 MG TAB PO SCH (09:54)
== END 2022-08-30 10:55 | disposition home or self-care (01) | DRG 638 ==
LOC: M ED 17:02 → M ED INP 17:03 → OBSVTOIN 17:36 → M MSPAV 23:22
PROVIDERS: ADMIT Internal Medicine; ATTEND Student in an Organized Health Care Education/Training Program
DX: E11.649 Type 2 diabetes mellitus with hypoglycemia without coma (principal); K76.6 Portal hypertension; K74.60 Unspecified cirrhosis of liver; B18.2 Chronic viral hepatitis C; K59.09 Other constipation; J44.9 Chronic obstructive pulmonary disease, unspecified; I10 Essential (primary) hypertension; K76.82 Hepatic encephalopathy; R41.3 Other amnesia; D64.9 Anemia, unspecified; M54.9 Dorsalgia, unspecified; G89.29 Other chronic pain; D69.6 Thrombocytopenia, unspecified; K21.9 Gastro-esophageal reflux disease without esophagitis; K27.9 Peptic ulcer, site unspecified, unspecified as acute or chronic, without hemorrhage or perforation; D72.829 Elevated white blood cell count, unspecified; Z90.49 Acquired absence of other specified parts of digestive tract; Z79.891 Long term (current) use of opiate analgesic; Z87.891 Personal history of nicotine dependence; Z79.4 Long term (current) use of insulin; Z79.84 Long term (current) use of oral hypoglycemic drugs; Z79.899 Other long term (current) drug therapy; Z88.8 Allergy status to other drugs, medicaments and biological substances; Z91.012 Allergy to eggs; Z99.81 Dependence on supplemental oxygen; Z20.822 Contact with and (suspected) exposure to COVID-19; F10.21 Alcohol dependence, in remission

== ENCOUNTER → 2022-11-10 | Outpatient (CLI) | payer MEDICARE, OTHER ==
[~2022-11-10] MED LIST changes: +ADVA115A INH; +GASTROGRAFIN SOLUTION 30ML As Ordered ONE; +IPRA0.00 NEB; +ISOVUE-370 76% 100ML VIAL As Ordered ONE
== END ==
LOC: M RAD 15:18
PROVIDERS: ATTEND Nurse Practitioner Family
DX: K74.60 Unspecified cirrhosis of liver (principal); K59.00 Constipation, unspecified
CPT/HCPCS: 74170; Q9963; Q9967

== ENCOUNTER 2023-02-27 16:38 | Emergency (ER) | payer MEDICARE, OTHER ==
[~2023-02-27] VITALS: Ht 177.8 cm; Wt 67.3 kg
[~2023-02-27 16:38] MED LIST changes: +CEFD1CAP9 PO; -CEFD300C41 PO; -GASTROGRAFIN SOLUTION 30ML As Ordered ONE; -ISOVUE-370 76% 100ML VIAL As Ordered ONE
[2023-02-27 20:37] LABS: RSV AMPLIFICATION NEGATIVE (NEGATIVE)
[2023-02-27] MEDS ORDERED: guaiFENesin ER TABLET 600 MG TAB PO STA (21:57)
[2023-02-27] MEDS ORDERED: BENZONATATE 100MG CAPSULE PO STA (21:57)
[2023-02-27] MEDS ORDERED: MUCI600T31 PO (22:12)
[2023-02-27] MEDS ORDERED: BENZ200C70 PO (22:12)
[2023-02-27 22:16] VITALS: BP 143/86; TEMP 97.9; O2SAT 99
== END 2023-02-27 22:40 | disposition home or self-care (01) ==
LOC: M ED 16:38
DX: J06.9 Acute upper respiratory infection, unspecified (principal); E11.9 Type 2 diabetes mellitus without complications; K21.9 Gastro-esophageal reflux disease without esophagitis; K74.60 Unspecified cirrhosis of liver; Z86.73 Personal history of transient ischemic attack (TIA), and cerebral infarction without residual deficits; Z88.8 Allergy status to other drugs, medicaments and biological substances; Z91.012 Allergy to eggs; Z79.52 Long term (current) use of systemic steroids; Z79.82 Long term (current) use of aspirin; Z79.810 Long term (current) use of selective estrogen receptor modulators (SERMs); Z79.4 Long term (current) use of insulin; Z79.899 Other long term (current) drug therapy

== ENCOUNTER 2023-06-09 17:22 | Inpatient (IN) | payer OTHER, MEDICARE ==
[~2023-06-09 17:22] MED LIST changes: -ASPI-161 PO; +ASPI-615 PO; +BENZ200C70 PO; +MUCI600T31 PO
[2023-06-09 18:45] LABS: VENOUS BASE EXCESS -2.7 (-2.0-2.0); VENOUS HCO3 23.4 MMOL/L (23.0-27.0); VENOUS PARTIAL PRESSURE CO2 45.5 mmHg (38.0-50.0); VENOUS PARTIAL PRESSURE O2 33.8 mmHg (30.0-50.0); VENOUS PH 7.329 UNITS (7.330-7.430); VENOUS STANDARD HCO3 21.4 MMOL/L; VENOUS TOTAL CO2 24.8 MMOL/L (24.0-28.0)
[2023-06-09 18:50] LABS: BASO # 0.1 10^3/uL (0.0-0.2); BASO % 2.8 % (0.0-1.0); EOS # 0.4 10^3/uL (0.0-0.5); EOS % 8.9 % (0.0-3.0); HEMATOCRIT 37.9 % (42.0-52.0); HEMOGLOBIN 12.7 g/dl (13.5-17.5); LYMPH # 1.5 10^3/uL (1.5-5.0); LYMPH % 29.5 % (24.0-44.0); MEAN CORPUSCULAR HEMOGLOBIN 34.7 pg (27.0-33.0); MEAN CORPUSCULAR HGB CONC 33.5 g/dl (32.0-36.5); MEAN CORPUSCULAR VOLUME 103.6 fl (80.0-96.0); MONO # 0.7 10^3/uL (0.0-0.8); MONO % 13.9 % (2.0-8.0); NEUTROPHILS # 2.2 10^3/uL (1.5-8.5); NEUTROPHILS % 44.7 % (36.0-66.0); RED BLOOD COUNT 3.66 10^6/uL (4.30-6.10)
[2023-06-09] MEDS: NS 1,000 ML IV ONE ×2 (18:55→19:20)
[2023-06-09 19:01] LABS: INR 1.58; PROTHROMBIN TIME 18.4 SECONDS (12.5-14.5)
[2023-06-09 19:12] LABS: CK-MB VALUE MASS < 1.0 NG/ML (<3.6)
[2023-06-09 19:13] LABS: ETHYL ALCOHOL (ETHANOL) < 0.003 % (0.000-0.010)
[2023-06-09 19:14] LABS: CPK CREATINE PHOSPHOKINASE 42 U/L (46-171); MB/CK RELATIVE INDEX 2.38 (< OR =4)
[2023-06-09 19:15] LABS: ALKALINE PHOSPHATASE 116 U/L (46-116); ALT/SGPT 21 U/L (7.0-40); AST/SGOT 34 U/L (<34); BILIRUBIN,DIRECT 0.7 MG/DL (<0.4); BILIRUBIN,TOTAL 3.9 MG/DL (0.3-1.2); BLOOD UREA NITROGEN 14 MG/DL (9-23); CALCIUM LEVEL 8.7 MG/DL (8.3-10.6); CARBON DIOXIDE LEVEL 25 MMOL/L (20-31); CHLORIDE LEVEL 111 MMOL/L (98-107); CREATININE FOR GFR 0.94 MG/DL (0.70-1.30); GLOMERULAR FILTRATION RATE > 60.0 (>49); GLUCOSE, FASTING 121 MG/DL (74-106); POTASSIUM SERUM 3.9 MMOL/L (3.5-5.1); SALICYLATE LEVEL < 3.0 MG/DL (<30); SODIUM LEVEL 142 MMOL/L (136-145); TOTAL PROTEIN 6.6 G/DL (5.7-8.2)
[2023-06-09 19:16] LABS: THYROXINE (T4) 5.8 UG/DL (4.5-10.9)
[2023-06-09 19:17] LABS: THYROID STIMULATING HORMONE 4.056 uIU/ML (0.55-4.78)
[2023-06-09 19:20] LABS: PLATELET COUNT, AUTOMATED 80 10^3/uL (150-450)
[2023-06-09] MEDS ORDERED: ISOVUE-370 76% 100ML VIAL As Ordered ONE (19:28)
[2023-06-09 19:33] LABS: C REACTIVE PROTEIN QUANTITATIV 1.2 MG/DL (<1.0)
[2023-06-09 19:46] LABS: PROCALCITONIN 0.07 ng/ml
[2023-06-09] MEDS: LACTULOSE 20GM/30ML SYRUP UDC PO ONE (21:22)
[2023-06-09 21:23] LABS: CK-MB VALUE MASS < 1.0 NG/ML (<3.6)
[2023-06-09 21:24] LABS: CPK CREATINE PHOSPHOKINASE 36 U/L (46-171); MB/CK RELATIVE INDEX 2.77 (< OR =4)
[2023-06-09] MEDS ORDERED: MED REC IN PROGRESS XX SCH (22:25)
[2023-06-09] MEDS: cefTRIAXone SOD 1 GM in D5W MINI-BAG PLUS 50 ML IV ONE (22:33)
[2023-06-09] MEDS: AZITHROMYCIN INJ 500 MG, VIAL MATE ADAPTER 1 EACH in NS 250 ML IV ONE (23:02)
[2023-06-09] MEDS ORDERED: IPRA0.00 INH (23:21)
[2023-06-09] MEDS ORDERED: MULT-90 PO (23:21)
[2023-06-09] MEDS ORDERED: ADVA115A INH (23:21)
[2023-06-09] MEDS ORDERED: HOME MED LIST COMPLETE! XX SCH (23:25)
[2023-06-09] MEDS ORDERED: IPRATROPIUM 0.5MG/ALBUTEROL 2.5MG INH SOL UD 3ML (DUONEB) INH PRN (23:30)
[2023-06-09] MEDS ORDERED: ARTIFICIAL TEARS DROPS 15ML BTL (VISINE DRY RELIEF) OP PRN (23:30)
[2023-06-09] MEDS ORDERED: MAALOX 30 ML SUSP *UDC PO PRN (23:40)
[2023-06-09] MEDS ORDERED: GLUCAGON INJ 1MG VIAL SC PRN (23:40)
[2023-06-09] MEDS ORDERED: GLUCOSE 4GM CHEW TABLET PO PRN (23:40)
[2023-06-09] MEDS ORDERED: MOM 30ML SUSPENSION UDC PO PRN (23:40)
[2023-06-09] MEDS ORDERED: ACETAMINOPHEN TAB 650MG DOSE (2X325MG) PO PRN (23:40)
[2023-06-09] MEDS ORDERED: DEXTROSE 50% 50ML SYRINGE IV PRN (23:40)
[2023-06-09] MEDS: MULTIVITAMINS/MINERALS THERAP 1 TAB PO ONE (23:57)
[2023-06-10] VITALS (13 sets, daily range): BP systolic 125–188; BP diastolic 62–80; PULSE 124–127; TEMP 97.5–99.3; O2SAT 92–99
[2023-06-10] MEDS: DOXYCYCLINE HYCLATE 100MG TABLET PO SCH (01:11)
[2023-06-10] MEDS: oxyCODONE 5MG TAB PO SCH ×2 (01:11→08:16)
[2023-06-10] MEDS: IPRATROPIUM 0.5MG/ALBUTEROL 2.5MG INH SOL UD 3ML (DUONEB) NEB SCH (01:27)
[2023-06-10 07:30] LABS: HEMOGLOBIN 11.4 g/dl (13.5-17.5); MEAN CORPUSCULAR HEMOGLOBIN 33.8 pg (27.0-33.0); MEAN CORPUSCULAR HGB CONC 33.5 g/dl (32.0-36.5); MEAN CORPUSCULAR VOLUME 100.9 fl (80.0-96.0); RED BLOOD COUNT 3.37 10^6/uL (4.30-6.10); WHITE BLOOD COUNT 5.3 10^3/uL (4.0-10.0)
[2023-06-10 07:38] LABS: PLATELET COUNT, AUTOMATED 77 10^3/uL (150-450)
[2023-06-10 07:43] LABS: INR 1.67; PROTHROMBIN TIME 19.1 SECONDS (12.5-14.5)
[2023-06-10] MEDS: INSULIN LISPRO (NovoLOG) PER UNIT SC SCH ×2 (07:49→20:32)
[2023-06-10 07:53] LABS: ALBUMIN 2.5 G/DL (3.2-5.2); ALKALINE PHOSPHATASE 106 U/L (46-116); ALT/SGPT 17 U/L (7.0-40); AST/SGOT 32 U/L (<34); BILIRUBIN,TOTAL 2.6 MG/DL (0.3-1.2); BLOOD UREA NITROGEN 16 MG/DL (9-23); CALCIUM LEVEL 8.1 MG/DL (8.3-10.6); CARBON DIOXIDE LEVEL 24 MMOL/L (20-31); CHLORIDE LEVEL 108 MMOL/L (98-107); CREATININE FOR GFR 1.01 MG/DL (0.70-1.30); GLOMERULAR FILTRATION RATE > 60.0 (>49); GLUCOSE, FASTING 173 MG/DL (74-106); MAGNESIUM LEVEL 1.5 MG/DL (1.8-2.4); POTASSIUM SERUM 4.5 MMOL/L (3.5-5.1); SODIUM LEVEL 140 MMOL/L (136-145); TOTAL PROTEIN 5.9 G/DL (5.7-8.2)
[2023-06-10] MEDS: MAGNESIUM OXIDE 400MG TAB (MAG-OX) PO SCH (08:14)
[2023-06-10] MEDS: METOPROLOL TART 12.5 MG PER 1/2 TAB PO SCH (08:16)
[2023-06-10] MEDS: ASPIRIN 81MG ENTERIC TABLET PO SCH (08:16)
[2023-06-10] MEDS: PANTOPRAZOLE 40MG TAB (PROTONIX) PO SCH (08:16)
[2023-06-10] MEDS: FOLIC ACID 1MG TAB PO SCH (08:17)
[2023-06-10] MEDS: FUROSEMIDE 20 MG TAB PO SCH (08:17)
[2023-06-10] MEDS: FERROUS SULFATE 325MG TAB PO SCH (08:17)
[2023-06-10] MEDS: THIAMINE 100 MG TAB PO SCH (08:17)
[2023-06-10] MEDS: DOCUSATE SODIUM 100MG CAPSULE PO SCH (08:17)
[2023-06-10] MEDS: LACTULOSE 20GM/30ML SYRUP UDC PO SCH ×2 (08:19→16:15)
[2023-06-10] MEDS: ADVAIR HFA 115/21MCG INHALER INH SCH (08:36)
[2023-06-10] MEDS ORDERED: HEPARIN SOD (PORCINE) 5000UNITS/ML 1ML VIAL/SYRINGE SC SCH (09:00)
[2023-06-10] MEDS: rifAXIMin 550 MG TAB (XIFAXAN) PO SCH (10:24)
[2023-06-10] MEDS: PANTOPRAZOLE 40MG VIAL IV SCH (11:48)
[2023-06-10] MEDS: FUROSEMIDE 40MG/4ML VIAL IV SCH (11:48)
[2023-06-10] MEDS: MAG SULF 1GM/100ML (MAG RUN) 1 GM in IV 1 EA IV SCH (13:21)
[2023-06-10 15:54] LABS: HEMOGLOBIN A1c 5.8 % (4.0-6.0)
[2023-06-10] MEDS: SPIRONOLACTONE 25 MG TAB PO SCH (16:15)
[2023-06-10] MEDS: INSULIN LISPRO (NovoLOG) PER UNIT SC ONE (16:15)
[2023-06-10] MEDS: NITROGLYCERIN 0.4MG SUBL TABLET SL PRN (21:27)
[2023-06-10] MEDS: oxyCODONE 5MG TAB PO ONE (21:28)
[2023-06-10] MEDS: METOPROLOL TART 12.5 MG PER 1/2 TAB PO STA (21:43)
[2023-06-10] MEDS ORDERED: cefTRIAXone SOD 1 GM in D5W MINI-BAG PLUS 50 ML IV SCH (23:00)
[2023-06-11] VITALS (16 sets, daily range): BP systolic 115–167; BP diastolic 71–88; TEMP 97.6–98.9; O2SAT 91–98
[2023-06-11 03:24] LABS: BASO # 0.1 10^3/uL (0.0-0.2); BASO % 2.2 % (0.0-1.0); EOS # 0.2 10^3/uL (0.0-0.5); EOS % 4.6 % (0.0-3.0); HEMATOCRIT 33.3 % (42.0-52.0); HEMOGLOBIN 11.2 g/dl (13.5-17.5); LYMPH # 0.9 10^3/uL (1.5-5.0); LYMPH % 17.2 % (24.0-44.0); MEAN CORPUSCULAR HEMOGLOBIN 34.7 pg (27.0-33.0); MEAN CORPUSCULAR HGB CONC 33.6 g/dl (32.0-36.5); MEAN CORPUSCULAR VOLUME 103.1 fl (80.0-96.0); MONO # 0.6 10^3/uL (0.0-0.8); MONO % 11.9 % (2.0-8.0); NEUTROPHILS # 3.2 10^3/uL (1.5-8.5); NEUTROPHILS % 63.7 % (36.0-66.0); RED BLOOD COUNT 3.23 10^6/uL (4.30-6.10); WHITE BLOOD COUNT 5.1 10^3/uL (4.0-10.0)
[2023-06-11 03:27] LABS: PLATELET COUNT, AUTOMATED 72 10^3/uL (150-450)
[2023-06-11 03:34] LABS: INR 1.67; PROTHROMBIN TIME 19.1 SECONDS (12.5-14.5)
[2023-06-11 03:48] LABS: ALBUMIN 2.7 G/DL (3.2-5.2); ALKALINE PHOSPHATASE 104 U/L (46-116); ALT/SGPT 18 U/L (7.0-40); AST/SGOT 28 U/L (<34); BILIRUBIN,TOTAL 1.7 MG/DL (0.3-1.2); BLOOD UREA NITROGEN 15 MG/DL (9-23); CALCIUM LEVEL 8.3 MG/DL (8.3-10.6); CARBON DIOXIDE LEVEL 22 MMOL/L (20-31); CHLORIDE LEVEL 106 MMOL/L (98-107); CREATININE FOR GFR 1.13 MG/DL (0.70-1.30); GLOMERULAR FILTRATION RATE > 60.0 (>49); GLUCOSE, FASTING 223 MG/DL (74-106); MAGNESIUM LEVEL 1.6 MG/DL (1.8-2.4); SODIUM LEVEL 138 MMOL/L (136-145); TOTAL PROTEIN 5.9 G/DL (5.7-8.2)
[2023-06-11] MEDS: MAG SULF 1GM/100ML (MAG RUN) 1 GM in IV 1 EA IV SCH (07:56)
[2023-06-11] MEDS: CALAMINE LOTION 177 ML BTL TOP SCH (12:06)
[2023-06-11] MEDS: LEVEMIR (INSULIN DETEMIR) 1 UNITS/0.01ML SC SCH (21:45)
[2023-06-11] MEDS: METOPROLOL TART 25 MG TABLET PO SCH (21:47)
[2023-06-11] MEDS: FUROSEMIDE 40MG/4ML VIAL IV SCH (21:48)
[2023-06-12] VITALS (12 sets, daily range): BP systolic 144–170; BP diastolic 71–86; TEMP 98–98.1; O2SAT 88–98
[2023-06-12 04:13] LABS: BASO # 0.1 10^3/uL (0.0-0.2); EOS # 0.2 10^3/uL (0.0-0.5); HEMATOCRIT 32.7 % (42.0-52.0); HEMOGLOBIN 11.2 g/dl (13.5-17.5); LYMPH % 14.7 % (24.0-44.0); MEAN CORPUSCULAR HEMOGLOBIN 34.7 pg (27.0-33.0); MEAN CORPUSCULAR HGB CONC 34.3 g/dl (32.0-36.5); MEAN CORPUSCULAR VOLUME 101.2 fl (80.0-96.0); MONO # 0.8 10^3/uL (0.0-0.8); MONO % 11.5 % (2.0-8.0); NEUTROPHILS # 4.9 10^3/uL (1.5-8.5); NEUTROPHILS % 69.5 % (36.0-66.0); RED BLOOD COUNT 3.23 10^6/uL (4.30-6.10)
[2023-06-12 04:17] LABS: PLATELET COUNT, AUTOMATED 78 10^3/uL (150-450)
[2023-06-12 04:21] LABS: INR 1.62; PROTHROMBIN TIME 18.7 SECONDS (12.5-14.5)
[2023-06-12 04:33] LABS: BLOOD UREA NITROGEN 13 MG/DL (9-23); CALCIUM LEVEL 8.5 MG/DL (8.3-10.6); CARBON DIOXIDE LEVEL 24 MMOL/L (20-31); CHLORIDE LEVEL 104 MMOL/L (98-107); CREATININE FOR GFR 0.99 MG/DL (0.70-1.30); GLOMERULAR FILTRATION RATE > 60.0 (>49); GLUCOSE, FASTING 298 MG/DL (74-106); POTASSIUM SERUM 4.3 MMOL/L (3.5-5.1); SODIUM LEVEL 137 MMOL/L (136-145)
[2023-06-12] MEDS ORDERED: SPIR50TA4 PO (14:33)
[2023-06-12] MEDS ORDERED: FURO40TA2 PO (14:33)
[2023-06-12] MEDS ORDERED: METO1TAB87 PO (14:33)
== END 2023-06-12 15:44 | disposition home health service (06) | DRG 291 ==
LOC: M ED 17:22 → M ED INP 23:38 → M PCU 06-10 12:50
PROVIDERS: ADMIT Preventive Medicine Undersea and Hyperbaric Medicine; ATTEND Preventive Medicine Undersea and Hyperbaric Medicine
PROC: B246ZZZ Ultrasonography of Right and Left Heart (ICD-10-PCS; principal; 2023-06-10)
DX: I11.0 Hypertensive heart disease with heart failure (principal); I50.33 Acute on chronic diastolic (congestive) heart failure; E87.20 Acidosis, unspecified; J98.11 Atelectasis; K74.60 Unspecified cirrhosis of liver; F03.90 Unspecified dementia, unspecified severity, without behavioral disturbance, psychotic disturbance, mood disturbance, and anxiety; E11.42 Type 2 diabetes mellitus with diabetic polyneuropathy; J44.9 Chronic obstructive pulmonary disease, unspecified; G47.00 Insomnia, unspecified; M54.50 Low back pain, unspecified; G89.29 Other chronic pain; I25.10 Atherosclerotic heart disease of native coronary artery without angina pectoris; I48.91 Unspecified atrial fibrillation; E83.42 Hypomagnesemia; K21.9 Gastro-esophageal reflux disease without esophagitis; D69.6 Thrombocytopenia, unspecified; G89.4 Chronic pain syndrome; I27.20 Pulmonary hypertension, unspecified; K76.82 Hepatic encephalopathy; I36.1 Nonrheumatic tricuspid (valve) insufficiency; I25.2 Old myocardial infarction; Z79.84 Long term (current) use of oral hypoglycemic drugs; Z99.81 Dependence on supplemental oxygen; Z79.891 Long term (current) use of opiate analgesic; Z90.49 Acquired absence of other specified parts of digestive tract; Z87.891 Personal history of nicotine dependence; Z79.82 Long term (current) use of aspirin; Z79.899 Other long term (current) drug therapy; Z91.012 Allergy to eggs; Z88.8 Allergy status to other drugs, medicaments and biological substances; Z86.73 Personal history of transient ischemic attack (TIA), and cerebral infarction without residual deficits

== ENCOUNTER 2023-07-07 19:55 | Inpatient (IN) | payer OTHER, MEDICARE ==
[~2023-07-07] VITALS: Ht 177.8 cm; Wt 80.1 kg
[~2023-07-07 19:55] MED LIST changes: +IPRA0.00 INH; +MULT-90 PO
[2023-07-07] MEDS: IPRATROPIUM 0.5MG/ALBUTEROL 2.5MG INH SOL UD 3ML (DUONEB) NEB ONE (20:20)
[2023-07-07] MEDS: IPRATROPIUM 0.5MG/ALBUTEROL 2.5MG INH SOL UD 3ML (DUONEB) NEB PRN (20:22)
[2023-07-07 20:40] LABS: VENOUS BASE EXCESS -3.1 (-2.0-2.0); VENOUS HCO3 22.6 MMOL/L (23.0-27.0); VENOUS O2 SATURATION 74.2 % (60.0-80.0); VENOUS PARTIAL PRESSURE CO2 42.7 mmHg (38.0-50.0); VENOUS PARTIAL PRESSURE O2 43.3 mmHg (30.0-50.0); VENOUS PH 7.341 UNITS (7.330-7.430); VENOUS STANDARD HCO3 21.4 MMOL/L; VENOUS TOTAL CO2 23.9 MMOL/L (24.0-28.0)
[2023-07-07 21:09] LABS: CK-MB VALUE MASS 1.5 NG/ML (<3.6)
[2023-07-07 21:11] LABS: ALBUMIN 2.6 G/DL (3.2-5.2); BILIRUBIN,DIRECT 0.9 MG/DL (<0.4); BILIRUBIN,TOTAL 1.7 MG/DL (0.3-1.2); CALCIUM LEVEL 8.4 MG/DL (8.3-10.6); CREATININE FOR GFR 1.46 MG/DL (0.70-1.30); GLOMERULAR FILTRATION RATE 51.4 (>49); MB/CK RELATIVE INDEX 2.23 (< OR =4); POTASSIUM SERUM 4.6 MMOL/L (3.5-5.1); TOTAL PROTEIN 6.8 G/DL (5.7-8.2)
[2023-07-07 21:13] LABS: THYROID STIMULATING HORMONE 7.285 uIU/ML (0.55-4.78)
[2023-07-07 21:15] LABS: BASO # 0.1 10^3/uL (0.0-0.2); BASO % 1.1 % (0.0-1.0); EOS # 0.4 10^3/uL (0.0-0.5); EOS % 4.5 % (0.0-3.0); HEMATOCRIT 31.7 % (42.0-52.0); HEMOGLOBIN 10.8 g/dl (13.5-17.5); LYMPH # 1.4 10^3/uL (1.5-5.0); LYMPH % 16.7 % (24.0-44.0); MEAN CORPUSCULAR HEMOGLOBIN 33.4 pg (27.0-33.0); MEAN CORPUSCULAR HGB CONC 34.1 g/dl (32.0-36.5); MEAN CORPUSCULAR VOLUME 98.1 fl (80.0-96.0); MONO % 12.3 % (2.0-8.0); NEUTROPHILS # 5.3 10^3/uL (1.5-8.5); NEUTROPHILS % 64.9 % (36.0-66.0); RED BLOOD COUNT 3.23 10^6/uL (4.30-6.10); WHITE BLOOD COUNT 8.2 10^3/uL (4.0-10.0)
[2023-07-07 21:16] LABS: PLATELET COUNT, AUTOMATED 80 10^3/uL (150-450)
[2023-07-07 21:59] LABS: CK-MB VALUE MASS 1.7 NG/ML (<3.6)
[2023-07-07 22:00] LABS: MB/CK RELATIVE INDEX 2.57 (< OR =4)
[2023-07-07] MEDS ORDERED: ISOVUE-370 76% 100ML VIAL As Ordered ONE (22:08)
[2023-07-07 22:10] LABS: PROCALCITONIN 0.1 ng/ml
[2023-07-07] MEDS ORDERED: METO25TA4 PO (22:53)
[2023-07-07] MEDS ORDERED: SPIR50TA4 PO (22:53)
[2023-07-07] MEDS ORDERED: ZZZQ50LI PO (22:54)
[2023-07-07] MEDS ORDERED: HOME MED LIST COMPLETE! XX SCH (23:00)
[2023-07-08] VITALS (18 sets, daily range): BP systolic 100–130; BP diastolic 65–81; TEMP 97–98.7; O2SAT 90–99
[2023-07-08] MEDS ORDERED: IPRATROPIUM 0.5MG/ALBUTEROL 2.5MG INH SOL UD 3ML (DUONEB) INH PRN (01:20)
[2023-07-08] MEDS: FUROSEMIDE 20MG/2ML VIAL IV ONE (01:31)
[2023-07-08] MEDS ORDERED: GLUCOSE 4 GM CHEW PO PRN (02:25)
[2023-07-08] MEDS ORDERED: DEXTROSE 50% 50ML SYRINGE IV PRN (02:25)
[2023-07-08] MEDS ORDERED: GLUCAGON INJ 1MG VIAL SC PRN (02:25)
[2023-07-08] MEDS ORDERED: LACTULOSE 20GM/30ML SYRUP UDC PO ONE (03:00)
[2023-07-08] MEDS: oxyCODONE 5MG TAB PO ONE (03:50)
[2023-07-08] MEDS: rifAXIMin 550 MG TAB (XIFAXAN) PO ONE (03:50)
[2023-07-08] MEDS: INSULIN LISPRO (NovoLOG) PER UNIT SC SCH ×2 (07:30→21:00)
[2023-07-08] MEDS: ADVAIR HFA 115/21MCG INHALER INH SCH (07:34)
[2023-07-08 07:45] LABS: BASO % 0.6 % (0.0-1.0); EOS # 0.4 10^3/uL (0.0-0.5); EOS % 5.6 % (0.0-3.0); HEMATOCRIT 30.6 % (42.0-52.0); HEMOGLOBIN 10.5 g/dl (13.5-17.5); LYMPH # 1.6 10^3/uL (1.5-5.0); LYMPH % 26.1 % (24.0-44.0); MEAN CORPUSCULAR HEMOGLOBIN 34.1 pg (27.0-33.0); MEAN CORPUSCULAR HGB CONC 34.3 g/dl (32.0-36.5); MEAN CORPUSCULAR VOLUME 99.4 fl (80.0-96.0); MONO # 0.9 10^3/uL (0.0-0.8); MONO % 14.3 % (2.0-8.0); NEUTROPHILS # 3.3 10^3/uL (1.5-8.5); NEUTROPHILS % 53.1 % (36.0-66.0); RED BLOOD COUNT 3.08 10^6/uL (4.30-6.10); WHITE BLOOD COUNT 6.3 10^3/uL (4.0-10.0)
[2023-07-08 07:46] LABS: PLATELET COUNT, AUTOMATED 92 10^3/uL (150-450)
[2023-07-08 08:13] LABS: ALBUMIN 2.8 G/DL (3.2-5.2); BILIRUBIN,DIRECT 0.9 MG/DL (<0.4); BILIRUBIN,TOTAL 1.6 MG/DL (0.3-1.2); CALCIUM LEVEL 8.8 MG/DL (8.3-10.6); CREATININE FOR GFR 1.61 MG/DL (0.70-1.30); GLOMERULAR FILTRATION RATE 45.9 (>49); POTASSIUM SERUM 4.4 MMOL/L (3.5-5.1); TOTAL PROTEIN 6.6 G/DL (5.7-8.2)
[2023-07-08] MEDS: LACTULOSE 20GM/30ML SYRUP UDC PO SCH (09:18)
[2023-07-08] MEDS: FUROSEMIDE 20MG/2ML VIAL IV SCH (09:19)
[2023-07-08] MEDS: FERROUS SULFATE 325MG TAB PO SCH (09:19)
[2023-07-08] MEDS: MAGNESIUM OXIDE 400MG TAB (MAG-OX) PO SCH (09:19)
[2023-07-08] MEDS: ASPIRIN 81MG ENTERIC TABLET PO SCH (09:19)
[2023-07-08] MEDS: rifAXIMin 550 MG TAB (XIFAXAN) PO SCH (09:19)
[2023-07-08] MEDS: HEPARIN SOD (PORCINE) 5000UNITS/ML 1ML VIAL/SYRINGE SC SCH (09:19)
[2023-07-08] MEDS: oxyCODONE 5MG TAB PO SCH ×2 (09:20→21:39)
[2023-07-08] MEDS: PANTOPRAZOLE 40MG TAB (PROTONIX) PO SCH (09:20)
[2023-07-08] MEDS: SPIRONOLACTONE 50 MG TAB PO SCH (09:20)
[2023-07-08] MEDS: METOPROLOL TART 12.5 MG PER 1/2 TAB PO SCH (09:29)
[2023-07-08 09:59] LABS: FREE T4 0.84 NG/DL (0.89-1.76)
[2023-07-08 13:55] LABS: INR 1.73; PROTHROMBIN TIME 19.7 SECONDS (12.5-14.5)
[2023-07-08] MEDS: IPRATROPIUM 0.5MG/ALBUTEROL 2.5MG INH SOL UD 3ML (DUONEB) INH SCH (14:01)
[2023-07-08] MEDS: MAG SULF 1GM/100ML (MAG RUN) 1 GM in IV 1 EA IV SCH (14:46)
[2023-07-08] MEDS: LEVOTHYROXINE 50MCG TABLET (0.05MG) PO SCH (14:46)
[2023-07-08] MEDS ORDERED: SPIRONOLACTONE 50 MG TAB PO SCH ×2 (17:00→21:00)
[2023-07-09] VITALS (7 sets, daily range): BP systolic 107–145; BP diastolic 63–73; TEMP 97.4–98.3; O2SAT 92–96
[2023-07-09 05:27] LABS: BASO # 0.1 10^3/uL (0.0-0.2); BASO % 0.7 % (0.0-1.0); EOS # 0.2 10^3/uL (0.0-0.5); EOS % 2.9 % (0.0-3.0); HEMATOCRIT 30.1 % (42.0-52.0); HEMOGLOBIN 10.5 g/dl (13.5-17.5); LYMPH % 14.7 % (24.0-44.0); MEAN CORPUSCULAR HGB CONC 34.9 g/dl (32.0-36.5); MEAN CORPUSCULAR VOLUME 97.4 fl (80.0-96.0); MONO % 13.7 % (2.0-8.0); NEUTROPHILS # 4.7 10^3/uL (1.5-8.5); NEUTROPHILS % 67.7 % (36.0-66.0); RED BLOOD COUNT 3.09 10^6/uL (4.30-6.10)
[2023-07-09 05:31] LABS: INR 1.66; PROTHROMBIN TIME 19.1 SECONDS (12.5-14.5)
[2023-07-09 05:33] LABS: PLATELET COUNT, AUTOMATED 95 10^3/uL (150-450)
[2023-07-09 05:46] LABS: ALBUMIN 2.4 G/DL (3.2-5.2); BILIRUBIN,DIRECT 0.8 MG/DL (<0.4); BILIRUBIN,TOTAL 1.5 MG/DL (0.3-1.2); CALCIUM LEVEL 8.6 MG/DL (8.3-10.6); CREATININE FOR GFR 1.5 MG/DL (0.70-1.30); GLOMERULAR FILTRATION RATE 49.8 (>49); POTASSIUM SERUM 5.2 MMOL/L (3.5-5.1); TOTAL PROTEIN 6.4 G/DL (5.7-8.2)
[2023-07-09] MEDS: PATIROMER SORBITEX CALCIUM 8.4 GM POWDER PACKET (VELTASSA) PO ONE (09:28)
[2023-07-09] MEDS: BUMETANIDE 1 MG TAB PO SCH (11:35)
[2023-07-09] MEDS: NYSTATIN 100,000 UNITS/GM TOPICAL PWD 15GM TOP SCH (12:34)
[2023-07-09 14:59] LABS: PH BODY FLUID 7.708 UNITS (NOT ESTABLISHED); SOURCE, BODY FLUID pH PLEURAL
[2023-07-09 15:05] LABS: APPEARANCE, BODY FLUID CLOUDY (CLEAR); PLEURAL FL COLOR RED (COLORLESS); SOURCE, BODY FLUID PLEURAL
[2023-07-09 15:17] LABS: SOURCE, BODY FLUID ALBUMIN PLEURAL
[2023-07-09 15:22] LABS: SOURCE, BODY FLUID GLUCOSE PLEURAL; SOURCE, BODY FLUID TRIG PLEURAL; TRIGLYCERIDE, BODY FLUID 24 MG/DL (NOT ESTABLISHED)
[2023-07-09 15:24] LABS: AMYLASE, BODY FLUID 25 U/L (NOT ESTABLISHED); LDH, BODY FLUID 84 U/L (NOT ESTABLISHED); SOURCE, BODY FLUID AMYLASE PLEURAL; SOURCE, BODY FLUID LDH PLEURAL
[2023-07-09 15:25] LABS: CHOLESTEROL, BODY FLUID < 25 MG/DL (NOT ESTABLISHED); SOURCE, BODY FLUID CHOL PLEURAL; SOURCE, BODY FLUID TOT PROTEIN PLEURAL; TOTAL PROTEIN, BODY FLUID < 2.0 G/DL (NOT ESTABLISHED)
[2023-07-09] MEDS: traMADol 50 MG TAB PO ONE (19:20)
[2023-07-09] MEDS: HYDROMORPHONE HCL 0.5 MG/ 0.5 ML SYRINGE IV ONE (21:15)
[2023-07-10 02:53] VITALS: BP 159/76; TEMP 97.6; O2SAT 92
[2023-07-10 03:25] LABS: BASO % 0.2 % (0.0-1.0); EOS % 0.1 % (0.0-3.0); HEMATOCRIT 30.8 % (42.0-52.0); HEMOGLOBIN 10.7 g/dl (13.5-17.5); LYMPH # 0.6 10^3/uL (1.5-5.0); LYMPH % 4.4 % (24.0-44.0); MEAN CORPUSCULAR HEMOGLOBIN 34.1 pg (27.0-33.0); MEAN CORPUSCULAR HGB CONC 34.7 g/dl (32.0-36.5); MEAN CORPUSCULAR VOLUME 98.1 fl (80.0-96.0); MONO # 1.5 10^3/uL (0.0-0.8); MONO % 10.4 % (2.0-8.0); NEUTROPHILS # 12.3 10^3/uL (1.5-8.5); NEUTROPHILS % 84.4 % (36.0-66.0); RED BLOOD COUNT 3.14 10^6/uL (4.30-6.10); WHITE BLOOD COUNT 14.6 10^3/uL (4.0-10.0)
[2023-07-10 03:26] LABS: PLATELET COUNT, AUTOMATED 93 10^3/uL (150-450)
[2023-07-10 03:29] LABS: INR 1.59; PROTHROMBIN TIME 18.4 SECONDS (12.5-14.5)
[2023-07-10 03:40] LABS: ALBUMIN 2.8 G/DL (3.2-5.2); BILIRUBIN,DIRECT 1.5 MG/DL (<0.4); CALCIUM LEVEL 8.4 MG/DL (8.3-10.6); CREATININE FOR GFR 1.69 MG/DL (0.70-1.30); GLOMERULAR FILTRATION RATE 43.4 (>49); POTASSIUM SERUM 5.4 MMOL/L (3.5-5.1); TOTAL PROTEIN 6.8 G/DL (5.7-8.2)
[2023-07-10 05:18] VITALS: BP 134/70; TEMP 98; O2SAT 92
[2023-07-10 07:28] VITALS: BP 128/78; TEMP 97.4; O2SAT 94
[2023-07-10] MEDS: BUMETANIDE 1 MG TAB PO SCH (08:37)
[2023-07-10] MEDS: LIDOCAINE 5% (LIDODERM) PATCH TD SCH (08:41)
[2023-07-10 10:35] LABS: C REACTIVE PROTEIN QUANTITATIV 2.3 MG/DL (<1.0)
[2023-07-10 10:45] LABS: PROCALCITONIN 1.89 ng/ml
[2023-07-10 11:46] VITALS: BP 109/57; TEMP 98; O2SAT 96
[2023-07-10] MEDS: DOXYCYCLINE HYCLATE 100MG TABLET PO SCH (13:15)
[2023-07-10] MEDS: cefTRIAXone SOD 1 GM in D5W MINI-BAG PLUS 50 ML IV SCH (13:15)
[2023-07-10] MEDS ORDERED: DOXYCYCLINE HYCLATE 100 MG in D5W MINI-BAG PLUS 100 ML IV SCH (15:00)
[2023-07-10 16:00] VITALS: BP 129/77; TEMP 98; O2SAT 93
[2023-07-10 17:09] LABS: CALCIUM LEVEL 8.3 MG/DL (8.3-10.6); CREATININE FOR GFR 2.05 MG/DL (0.70-1.30); GLOMERULAR FILTRATION RATE 34.8 (>49); POTASSIUM SERUM 5.2 MMOL/L (3.5-5.1)
[2023-07-10 17:33] LABS: MAGNESIUM LEVEL 2.2 MG/DL (1.8-2.4)
[2023-07-10 19:22] VITALS: BP 106/64; TEMP 97.4; O2SAT 96
[2023-07-11 00:31] VITALS: BP 134/76; TEMP 97.6; O2SAT 94
[2023-07-11 04:04] VITALS: BP 122/69; TEMP 98.2; O2SAT 95
[2023-07-11 05:57] LABS: BASO % 0.4 % (0.0-1.0); EOS # 0.1 10^3/uL (0.0-0.5); EOS % 0.8 % (0.0-3.0); HEMATOCRIT 29.8 % (42.0-52.0); HEMOGLOBIN 10.4 g/dl (13.5-17.5); LYMPH # 0.8 10^3/uL (1.5-5.0); LYMPH % 8.1 % (24.0-44.0); MEAN CORPUSCULAR HGB CONC 34.9 g/dl (32.0-36.5); MEAN CORPUSCULAR VOLUME 97.4 fl (80.0-96.0); MONO # 2.1 10^3/uL (0.0-0.8); NEUTROPHILS # 7.2 10^3/uL (1.5-8.5); NEUTROPHILS % 70.3 % (36.0-66.0); RED BLOOD COUNT 3.06 10^6/uL (4.30-6.10); WHITE BLOOD COUNT 10.3 10^3/uL (4.0-10.0)
[2023-07-11 06:00] LABS: PLATELET COUNT, AUTOMATED 91 10^3/uL (150-450)
[2023-07-11 06:06] LABS: INR 1.83; PROTHROMBIN TIME 20.5 SECONDS (12.5-14.5)
[2023-07-11 06:32] LABS: ALBUMIN 2.4 G/DL (3.2-5.2); BILIRUBIN,TOTAL 1.7 MG/DL (0.3-1.2); CALCIUM LEVEL 8.6 MG/DL (8.3-10.6); CREATININE FOR GFR 2.2 MG/DL (0.70-1.30); POTASSIUM SERUM 5.4 MMOL/L (3.5-5.1); TOTAL PROTEIN 6.4 G/DL (5.7-8.2)
[2023-07-11 07:47] VITALS: BP 123/62; TEMP 98; O2SAT 95
[2023-07-11] MEDS: PATIROMER SORBITEX CALCIUM 8.4 GM POWDER PACKET (VELTASSA) PO ONE (09:23)
[2023-07-11 09:27] VITALS: BP 123/62
[2023-07-11 12:23] VITALS: BP 108/61; TEMP 97.8; O2SAT 95
[2023-07-11 16:32] VITALS: BP 115/58; TEMP 98.6; O2SAT 95
[2023-07-11] MEDS ORDERED: BISACODYL 10MG SUPP PR PRN (17:00)
[2023-07-11] MEDS ORDERED: ACETAMINOPHEN TAB 650MG DOSE (2X325MG) PO PRN (17:00)
[2023-07-11] MEDS ORDERED: LORazepam 2 MG/ML 1ML VIAL IV PRN (17:00)
[2023-07-11] MEDS: ONDANSETRON 4MG 2ML VIAL IV PRN (18:31)
[2023-07-11] MEDS: MORPHINE 2 MG/ML 1ML VIAL IV PRN (18:32)
[2023-07-12] MEDS ORDERED: ATIV1TAB10 PO (11:53)
[2023-07-12] MEDS ORDERED: HYOS125TA PO (11:53)
[2023-07-12 15:08] LABS: BODY FLUID CULTURE Not indicated. (.); LEGIONELLA ANTIGEN URINE Negative (Negative); ORGANISM ID Not indicated. (.); SPECIMEN SOURCE Urine (.); URINE STREP PNEUMONIAE ANTIGEN Negative (Negative)
== END 2023-07-12 14:03 | disposition hospice, home (50) | DRG 291 ==
LOC: EDBD 19:55 → M ED 19:55 → M ED INP 07-08 00:45 → M PCU 07-08 02:56
PROVIDERS: ADMIT Preventive Medicine Undersea and Hyperbaric Medicine; ATTEND Preventive Medicine Undersea and Hyperbaric Medicine
PROC: B246ZZZ Ultrasonography of Right and Left Heart (ICD-10-PCS; 2023-07-08)
PROC: 0W993ZZ Drainage of Right Pleural Cavity, Percutaneous Approach (ICD-10-PCS; principal; 2023-07-09 13:30)
DX: I13.0 Hypertensive heart and chronic kidney disease with heart failure and stage 1 through stage 4 chronic kidney disease, or unspecified chronic kidney disease (principal); J15.69 Pneumonia due to other Gram-negative bacteria; J91.8 Pleural effusion in other conditions classified elsewhere; N17.9 Acute kidney failure, unspecified; J96.10 Chronic respiratory failure, unspecified whether with hypoxia or hypercapnia; K70.31 Alcoholic cirrhosis of liver with ascites; K76.82 Hepatic encephalopathy; J44.9 Chronic obstructive pulmonary disease, unspecified; I25.2 Old myocardial infarction; D53.9 Nutritional anemia, unspecified; I48.91 Unspecified atrial fibrillation; D69.6 Thrombocytopenia, unspecified; E11.42 Type 2 diabetes mellitus with diabetic polyneuropathy; E87.6 Hypokalemia; E83.42 Hypomagnesemia; M54.50 Low back pain, unspecified; G89.29 Other chronic pain; N18.9 Chronic kidney disease, unspecified; K27.9 Peptic ulcer, site unspecified, unspecified as acute or chronic, without hemorrhage or perforation; I50.813 Acute on chronic right heart failure; N50.89 Other specified disorders of the male genital organs; E03.9 Hypothyroidism, unspecified; I27.20 Pulmonary hypertension, unspecified; K21.9 Gastro-esophageal reflux disease without esophagitis; Z79.82 Long term (current) use of aspirin; Z79.51 Long term (current) use of inhaled steroids; Z79.899 Other long term (current) drug therapy; Z88.8 Allergy status to other drugs, medicaments and biological substances; Z91.012 Allergy to eggs; Z79.891 Long term (current) use of opiate analgesic; Z90.49 Acquired absence of other specified parts of digestive tract; Z86.73 Personal history of transient ischemic attack (TIA), and cerebral infarction without residual deficits; Z99.81 Dependence on supplemental oxygen; Z87.891 Personal history of nicotine dependence; Z66 Do not resuscitate